=== PATIENT | female | born 1940 | race Caucasian/White ===

== ENCOUNTER → 2016-08-24 | Outpatient (CLI) | payer OTHER ==
[~2016-08-24] MED LIST: ALLO300T2 PO; ASPI81TA21 PO; ATOR-26 PO; ATV/1 PO; ATV2 PO; BMX1 PO; CEPH500C PO; CHOL100027 PO; FURO40TA3 PO; GABA-113 PO; INSDGIPEN SC; INSDGIPEN SQ; INSU1INJ2 SQ; INSU1INJ7 SC; IRBE-37 PO; ISOS30TA3 PO; LSX/40 PO; METO-478 PO; METO5TAB25 PO; NTRGSL/4 UT; NVLGI SC; NYSCR30 TOP; NYSTOIN5 TOP; OXYC-57 PO; POTA1TAB97 PO; POTA20TA16 PO; TRAM-10 PO
[2016-08-24 11:20] LABS: HEMATOCRIT 40.6 % (37-47); MEAN CELL VOLUME 93.5 fL (80-100); MEAN CORPUSCULAR HEMOGLOBIN 31.1 pg (25-34); MEAN CORPUSCULAR HGB CONC 33.3 g/dl (32-36); MEAN PLATELET VOLUME 11.5 fL (7.4-10.4); PLATELET COUNT 147 K/uL (130-400); RED BLOOD COUNT 4.34 M/uL (4.2-5.4); WHITE BLOOD COUNT 6.21 K/uL (4.8-10.8)
[2016-08-24 11:31] LABS: BLOOD UREA NITROGEN 32 mg/dl (7-18); BUN/CREATININE RATIO 26.7 (10-20); CARBON DIOXIDE 30 mmol/L (21-32); CHLORIDE 108 mmol/L (98-107); GLUCOSE 103 mg/dl (70-99); PHOSPHORUS 2.7 mg/dl (2.5-4.9); POTASSIUM 4.1 mmol/L (3.5-5.1); SODIUM 145 mmol/L (136-145)
== END | disposition home or self-care (01) ==
LOC: C.LAB1850 10:42
PROVIDERS: ATTEND Internal Medicine Nephrology
DX: I10 Essential (primary) hypertension (principal); N18.3 Chronic kidney disease, stage 3 (moderate); R60.9 Edema, unspecified; E55.9 Vitamin D deficiency, unspecified

== ENCOUNTER → 2017-02-23 | Outpatient (CLI) | payer OTHER ==
[~2017-02-23] MED LIST changes: -CEPH500C PO; -METO-478 PO; +METO1TAB31 PO; -POTA20TA16 PO
[2017-02-23 12:07] LABS: HEMATOCRIT 43.4 % (37-47); MEAN CELL VOLUME 92.3 fL (80-100); MEAN CORPUSCULAR HEMOGLOBIN 30.9 pg (25-34); MEAN CORPUSCULAR HGB CONC 33.4 g/dl (32-36); MEAN PLATELET VOLUME 11.8 fL (7.4-10.4); PLATELET COUNT 157 K/uL (130-400); WHITE BLOOD COUNT 5.51 K/uL (4.8-10.8)
[2017-02-23 12:15] LABS: BLOOD UREA NITROGEN 57 mg/dl (7-18); BUN/CREATININE RATIO 33.5 (10-20); CALCIUM 10.3 mg/dl (8.5-10.1); CARBON DIOXIDE 32 mmol/L (21-32); CHLORIDE 102 mmol/L (98-107); GLUCOSE 171 mg/dl (70-99); PHOSPHORUS 2.3 mg/dl (2.5-4.9); POTASSIUM 3.1 mmol/L (3.5-5.1); SODIUM 142 mmol/L (136-145)
[2017-02-23 13:38] LABS: URINE APPEARANCE CLEAR (CLEAR); URINE BILIRUBIN NEG (NEG); URINE COLOR YELLOW; URINE NITRITE NEG (NEG); URINE PH 6.5 (4.5-7.5); URINE SPECIFIC GRAVITY 1.012 (1.000-1.030); UROBILINOGEN NEG (NEG)
[2017-02-23 13:39] LABS: MANUAL MICROSCOPIC REQUIRED? NO; REVIEW REQ? NO
[2017-02-23 13:52] LABS: URINE TOTAL PROTEIN < 5.0 mg/dl (0-11.9)
== END | disposition home or self-care (01) ==
LOC: C.LAB1850 10:19
PROVIDERS: ATTEND Internal Medicine Nephrology
DX: N18.3 Chronic kidney disease, stage 3 (moderate) (principal); E55.9 Vitamin D deficiency, unspecified; R60.9 Edema, unspecified; I12.9 Hypertensive chronic kidney disease with stage 1 through stage 4 chronic kidney disease, or unspecified chronic kidney disease

== ENCOUNTER → 2017-03-16 | Outpatient (CLI) | payer OTHER ==
[2017-03-16 12:35] LABS: BLOOD UREA NITROGEN 69 mg/dl (7-18); BUN/CREATININE RATIO 38.6 (10-20); CALCIUM 10.8 mg/dl (8.5-10.1); CARBON DIOXIDE 33 mmol/L (21-32); CHLORIDE 100 mmol/L (98-107); GLUCOSE 178 mg/dl (70-99); POTASSIUM 2.9 mmol/L (3.5-5.1); SODIUM 141 mmol/L (136-145)
[2017-03-16 12:38] LABS: PHOSPHORUS 3.9 mg/dl (2.5-4.9)
== END | disposition home or self-care (01) ==
LOC: C.LAB1850 10:12
PROVIDERS: ATTEND Internal Medicine Nephrology
DX: I12.9 Hypertensive chronic kidney disease with stage 1 through stage 4 chronic kidney disease, or unspecified chronic kidney disease (principal); N18.3 Chronic kidney disease, stage 3 (moderate); E55.9 Vitamin D deficiency, unspecified; E87.6 Hypokalemia; R60.9 Edema, unspecified

== ENCOUNTER → 2017-04-05 | Outpatient (CLI) | payer OTHER ==
[2017-04-05 14:55] LABS: ALT/SGPT 37 U/L (12-78); AST/SGOT 28 U/L (15-37); BLOOD UREA NITROGEN 77 mg/dl (7-18); BUN/CREATININE RATIO 40.3 (10-20); CALCIUM 10.6 mg/dl (8.5-10.1); CARBON DIOXIDE 33 mmol/L (21-32); CHLORIDE 101 mmol/L (98-107); GLUCOSE 169 mg/dl (70-99); MAGNESIUM 2.2 mg/dl (1.8-2.4); POTASSIUM 5.4 mmol/L (3.5-5.1); SODIUM 139 mmol/L (136-145)
[2017-04-05 14:58] LABS: ALB/GLOB RATIO 0.8 (0.9-2); ALKALINE PHOSPHATASE 73 U/L (45-117)
== END | disposition home or self-care (01) ==
LOC: C.LAB1850 13:07
PROVIDERS: ATTEND Internal Medicine Nephrology
DX: I12.9 Hypertensive chronic kidney disease with stage 1 through stage 4 chronic kidney disease, or unspecified chronic kidney disease (principal); N18.3 Chronic kidney disease, stage 3 (moderate); R60.9 Edema, unspecified; E55.9 Vitamin D deficiency, unspecified; E87.6 Hypokalemia

== ENCOUNTER 2017-04-07 18:37 | Inpatient (IN) | payer OTHER ==
[~2017-04-07] VITALS: Ht 157.5 cm; Wt 106.9 kg
[~2017-04-07 18:37] MED LIST changes: -ATV2 PO; -BMX1 PO; -INSDGIPEN SC; -INSDGIPEN SQ; -INSU1INJ2 SQ; -ISOS30TA3 PO; -NYSCR30 TOP; -OXYC-57 PO
[2017-04-07] MEDS ORDERED: SODIUM CHLORIDE 0.9% 1000ML 500 ML IV STA (20:39)
--- NOTE | 2017-04-07 20:45 | EMERGENCY ROOM VISIT NOTE ---
History Report prepared by Pema: Nadege Cage Under the Supervision of: Dr. William Coburn M.D. First contact with patient: 20:31 Chief Complaint: FALL Stated Complaint: FALL - LEGS GAVE OUT History of Present Illness The patient is a 76 year old female who presents to the Emergency Room with complaints of a fall that occurred around 1400 today. She reports when she first woke up this morning, both of her legs felt weak and she had a hard time getting out of bed. She was able to get to routine checkup with her PCP, Dr. Dangelo. She reports she discussed her weakness with Dr. Dangelo. After the appointment, she went to get gas when her bilateral legs "gave out" and she fell to the ground. She was unable to get herself up and had to wait for EMS to come help her. She refused to come to the ED at that time and states she was able to get home, where her family encouraged her to come to the ED. She denies hitting her head or any loss of consciousness She notes she was recently placed on a new medication by Dr. Fountain, her Psychiatric Attendant. The patient denies any recent fevers, cough or congestion or urinary symptoms. She admits to a history of diabetes mellitus and neuropathy but denies any new pain or numbness in her legs. Source of History: patient Onset: 1400 today Position: other (global) Quality: other (fall) Timing: resolved Associated Symptoms: No fevers, No cough (cough or congestion), No urinary symptoms, No numbness (bilateral legs) Review of Systems See HPI for pertinent positives & negatives. A total of 10 systems reviewed and were otherwise negative. Past Medical & Surgical Medical Problems: (1) Benign hypertension (2) Chronic kidney disease stage 3 (3) Coronary artery disease (4) Diabetes mellitus type 2 (5) Dyslipidemia (6) Glaucoma (7) Gout (8) Morbid obesity (9) Neuropathy Social History Smoking Status: Never Smoker Drug Use: none Marital Status: Housing Status: lives with family Occupation Status: retired Current/Historical Medications Scheduled Allopurinol (Zyloprim), 300 MG PO QAM Aspirin Enteric Coated (Ecotrin Or Generic), 81 MG PO QAM Atorvastatin (Lipitor), 80 MG PO QAM Furosemide (Lasix), 40 MG PO HS Furosemide (Lasix), 80 MG PO QAM Gabapentin (Neurontin), 600 MG PO QAM Gabapentin (Neurontin), 900 MG PO HS Insulin Aspart (Novolog Penfill), 14 UNITS SQ QA Insulin Aspart (Novolog Penfill), 16 UNITS SQ LUNCH Insulin Aspart (Novolog Penfill), 18 UNITS SQ SUPPER Insulin Glargine (Lantus Solostar), 50 UNITS SQ QAM Insulin Glargine (Lantus Solostar), 60 SC QPM Lorazepam (Lorazepam), 2 MG PO HS Metoprolol Succinate (Toprol Xl), 12.5 MG PO QAM Nitroglycerin (Nitrostat), 0.4 MG UT PRN Potassium Chloride (K-Tab), 3 TABS PO BID Scheduled PRN Metolazone (Zaroxolyn), 5 MG PO DAILY PRN for SWELLING Nystatin (Nystatin Cream), 1 APPLN TOP BID PRN for RASH Oxycodone/Acetaminophen 5MG/325MG (Percocet 5MG/325MG), 1 TABLET PO Q6H PRN for Pain Allergies Coded Allergies: Sulfamethoxazole w/Trimethoprim (Verified Allergy, Unknown, RASH, 04/07/17) Physical Exam Vital Signs Date Time Temp Pulse Resp B/P (MAP) Pulse Ox O2 Delivery O2 Flow Rate FiO2 04/07/17 23:51 52 18 142/53 99 Room Air 04/07/17 22:44 73 04/07/17 22:00 50 18 98 Room Air 04/07/17 21:57 119/63 98 Room Air 04/07/17 21:45 58 16 04/07/17 20:46 45 04/07/17 20:44 98 Room Air 04/07/17 20:40 50 16 138/45 98 Room Air 04/07/17 18:54 36.8 59 20 131/48 96 Room Air Physical Exam GENERAL: Patient is in no acute distress. HEENT: No acute trauma, normocephalic atraumatic, mucous membranes moist, no nasal congestion, no scleral icterus. NECK: No stridor, no adenopathy, no meningismus, trachea is midline. LUNGS: Clear to auscultation bilaterally, no wheeze, no rhonchi, breath sounds equal. HEART: Without murmurs gallops or rubs, bradycardic with a regular rhythm. ABDOMEN: Soft, nontender, bowel sounds positive, no hernias, no peritonitis. EXTREMITIES: No cyanosis or edema, full range of motion of all the joints without pain or difficulty, no signs for acute trauma. NEUROLOGIC: Oriented x 3, no acute motor or sensory deficits, no focal weakness. SKIN: No rash, no jaundice, no diaphoresis. Medical Decision & Procedures ER Provider Diagnostic Interpretation: Radiology results as stated below per my review and radiologist interpretation: CHEST ONE VIEW PORTABLE CLINICAL HISTORY: 76 years-old Female presenting with EVALUATE ALTERED MENTAL STATUS/WEAKNESS. TECHNIQUE: Portable upright AP view of the chest was obtained. COMPARISON: 12/12/2011 FINDINGS: Atherosclerosis of the aortic arch. Cardiac silhouette within normal limits. Lungs and pleural spaces clear. Osseous structures normal. Upper abdomen normal. IMPRESSION: 1. No acute cardiopulmonary disease. Electronically signed by: Phan Muhammad M.D. 04/07/2017 9:17 PM HEAD WITHOUT CONTRAST (CT) CLINICAL HISTORY: 76 years-old Female presenting with EVALUATE ALTERED MENTAL STATUS/WEAKNESS. TECHNIQUE: Multidetector CT imaging of the head was performed technique 1 IV contrast: None. A dose lowering technique was used consistent with the principles of ALARA (as low as reasonably achievable). COMPARISON: 09/28/2012. CT DOSE (mGy.cm): The estimated cumulative dose is 638.56 mGycm. FINDINGS: Field Application Engineer topogram: Unremarkable. Ventricles and sulci normal in size. Brain parenchyma normal in appearance with preserved aguilar-white differentiation. No mass effect or midline shift. No hemorrhage or acute territorial infarct. No extra-axial fluid collection. Paranasal sinuses and mastoid air cells clear. Calvarium intact. IMPRESSION: 1. No acute intracranial pathology. Electronically signed by: Phan Muhammad M.D. 04/07/2017 9:46 PM Laboratory Results Test 04/07/17 20:21 04/07/17 22:02 Total Bilirubin 0.5 mg/dl (0.2-1) Alanine Aminotransferase (ALT/SGPT) 35 U/L (12-78) Alkaline Phosphatase 67 U/L (45-117) Total Protein 7.8 gm/dl (6.4-8.2) Albumin 3.5 gm/dl (3.4-5.0) Globulin 4.3 gm/dl (2.5-4.0) Albumin/Globulin Ratio 0.8 (0.9-2) Thyroid Stimulating Hormone (TSH) 2.230 uIu/ml (0.300-4.500) Prothrombin Time 10.6 SECONDS (9.0-12.0) Prothromb Time International Ratio 1.0 (0.9-1.1) Activated Partial Thromboplast Time 26.8 SECONDS (21.0-31.0) Partial Thromboplastin Ratio 1.0 Magnesium Level 2.5 mg/dl (1.8-2.4) Aspartate Amino Transf (AST/SGOT) 34 U/L (15-37) Chemistry Specimen Hemolysis Laboratory results reviewed by me. Medications Administered Medications (Trade) Dose Ordered Sig/Claire Route Start Time Stop Time Status Last Admin Dose Admin Sodium Chloride 500 ml @ 999 mls/hr Q31M STAT IV 04/07/17 20:39 04/07/17 21:09 DC 04/07/17 20:39 999 MLS/HR Sodium Chloride 500 ml @ 999 mls/hr Q31M STAT IV 04/07/17 21:52 04/07/17 22:22 DC 04/07/17 21:52 999 MLS/HR Albuterol Sulfate (Ventolin 0.083% 2.5MG/3ML Neb) 2.5 mg NOW STAT INH 04/07/17 22:35 04/07/17 22:39 DC 04/07/17 22:53 2.5 MG Calcium Gluconate 1000 mg/Sodium Chloride 60 ml @ 240 mls/hr 2345 ONCE IV 04/07/17 23:45 04/07/17 23:59 DC 04/07/17 23:42 240 MLS/HR Dextrose (Dextrose 50% 50ML Syringe) 50 ml 2330 ONCE IV 04/07/17 23:30 04/07/17 23:31 DC 04/07/17 23:42 50 ML Insulin Human Regular 10 units/ Syringe 10 ml @ 10 mls/min 2335 ONCE IV 04/07/17 23:35 04/07/17 23:36 DC 04/07/17 23:45 10 MLS/MIN ECG Indication: weakness Rate (beats per minute): 48 Rhythm: junctional Findings: other (Poor R-wave progression) Comparison ECG Date: Compared to EKG from 05/03/12, junctional rhythm is now present ED Course 2032: The patient was evaluated in room B3. A complete history and physical exam was performed. 2038: NSS 500 ml @ 999 mls/hr IV, NSS 500 ml @ 999 mls/hr IV. 2234: Albuterol Sulfate 2.5 mg INH. 2244: I reevaluated the patient. She is resting comfortably. I discussed my recommendation she remain in the hospital for further evaluation and management and she verbalized complete understanding and agreement. 2249: I discussed the patients case with Juwan Worrell. The patient will be further evaluated. Medical Decision The differential diagnoses considered include stroke or intracranial bleeding, debilitation, anemia, electrolyte imbalance, infection, UTI, Guillain [place] Syndrome, PA, thyroid disorder and dysrhythmia. There is no leukocytosis or concerning anemia. Renal panel testing shows hyperkalemia with a potassium of 6. There is some acute renal failure with a high creatinine at 2.8. No evidence for hepatitis. The patient appears to be in a euthyroid state. EKG shows a junctional rhythm with a rate of 48. No acute ischemia. Cardiac enzyme testing times one does show a slight elevation to the troponin consistent with possible cardiac injury/strain. Chest film does not show pneumonia or CHF. Brain CT shows no acute bleed or mass effect. There is no coagulopathy. Total CK slightly elevated but not high enough to diagnose rhabdomyolysis. The patient was given an albuterol neb, she received IV saline. These 2 interventions were performed because of the hyperkalemia. The patient presents with leg weakness. She is in a junctional bradycardia and somewhat hyperkalemic. There is some acute renal failure. Admission/ observation is warranted. I spoke with the patient and case management. I spoke to the on-call hospitalist. The patient's potassium will need to be followed closely. She may require further interventions for the potassium based on the next potassium value. Medication Reconcilliation Current Medication List: was personally reviewed by me Blood Pressure Screening Patient's blood pressure: Normal blood pressure Blood pressure disposition: Did not require urgent referral Consults Time Called: 2247 Consulting Physician: Juwan Worrell Returned Call: 2249 I discussed the patients case with Juwan Worrell. The patient will be further evaluated. Impression Primary Impression: Acute renal failure Additional Impressions: Weakness Hyperkalemia Bradycardia Scribe Attestation The scribe's documentation has been prepared under my direction and personally reviewed by me in its entirety. I confirm that the note above accurately reflects all work, treatment, procedures, and medical decision making performed by me. Departure Information Dispostion Being Evaluated By Hospitalist Referrals Maggie Dangelo M.D. (PCP) Patient Instructions [facility] Problem Qualifiers
[2017-04-07] MEDS ORDERED: INSDGIPEN SQ (21:06)
[2017-04-07] MEDS ORDERED: ATV2 PO (21:06)
[2017-04-07] MEDS ORDERED: NYSCR30 TOP (21:06)
[2017-04-07] MEDS ORDERED: INSDGIPEN SC (21:06)
[2017-04-07] MEDS ORDERED: GABA-113 PO (21:06)
[2017-04-07] MEDS ORDERED: OXYC-57 PO (21:06)
[2017-04-07] MEDS ORDERED: INSU1INJ2 SQ ×3 (21:06)
[2017-04-07] MEDS ORDERED: ISOS30TA3 PO (21:06)
--- NOTE | 2017-04-07 21:18 | DIAGNOSTIC IMAGING REPORT ---
CHEST ONE VIEW PORTABLE CLINICAL HISTORY: 76 years-old Female presenting with EVALUATE ALTERED MENTAL STATUS/WEAKNESS. TECHNIQUE: Portable upright AP view of the chest was obtained. COMPARISON: 12/12/2011 FINDINGS: Atherosclerosis of the aortic arch. Cardiac silhouette within normal limits. Lungs and pleural spaces clear. Osseous structures normal. Upper abdomen normal. IMPRESSION: 1. No acute cardiopulmonary disease. Electronically signed by: Phan Muhammad M.D. 04/07/2017 9:17 PM Dictated Date/Time: 04/07/2017 9:16 PM
[2017-04-07 21:22] LABS: ALB/GLOB RATIO 0.8 (0.9-2); ALKALINE PHOSPHATASE 67 U/L (45-117); ALT/SGPT 35 U/L (12-78); BLOOD UREA NITROGEN 96 mg/dl (7-18); BUN/CREATININE RATIO 34.2 (10-20); CALCIUM 10.2 mg/dl (8.5-10.1); CARBON DIOXIDE 25 mmol/L (21-32); CHLORIDE 102 mmol/L (98-107); GLUCOSE 175 mg/dl (70-99); SODIUM 133 mmol/L (136-145)
--- NOTE | 2017-04-07 21:47 | DIAGNOSTIC IMAGING REPORT ---
HEAD WITHOUT CONTRAST (CT) CLINICAL HISTORY: 76 years-old Female presenting with EVALUATE ALTERED MENTAL STATUS/WEAKNESS. TECHNIQUE: Multidetector CT imaging of the head was performed technique 1 IV contrast: None. A dose lowering technique was used consistent with the principles of ALARA (as low as reasonably achievable). COMPARISON: 09/28/2012. CT DOSE (mGy.cm): The estimated cumulative dose is 638.56 mGycm. FINDINGS: Avionics Systems Engineer topogram: Unremarkable. Ventricles and sulci normal in size. Brain parenchyma normal in appearance with preserved aguilar-white differentiation. No mass effect or midline shift. No hemorrhage or acute territorial infarct. No extra-axial fluid collection. Paranasal sinuses and mastoid air cells clear. Calvarium intact. IMPRESSION: 1. No acute intracranial pathology. Electronically signed by: Phan Muhammad M.D. 04/07/2017 9:46 PM Dictated Date/Time: 04/07/2017 9:44 PM
[2017-04-07] MEDS ORDERED: SODIUM CHLORIDE 0.9% 500ML 500 ML IV STA (21:52)
[2017-04-07 22:12] LABS: BASO % 0.1 %; BASO ABS # 0.01 K/uL (0-0.2); COMPLETE YES; EOS % 1.3 %; IG% 0.1 %; LYMPH % 24.4 %; LYMPH ABS # 1.84 K/uL (1.2-3.4); MEAN CELL VOLUME 92.8 fL (80-100); MEAN CORPUSCULAR HGB CONC 33.4 g/dl (32-36); MEAN PLATELET VOLUME 11.4 fL (7.4-10.4); MONO % 10.1 %; PLATELET COUNT 160 K/uL (130-400); RED BLOOD COUNT 4.74 M/uL (4.2-5.4); WHITE BLOOD COUNT 7.55 K/uL (4.8-10.8)
[2017-04-07 22:26] LABS: PROTHROMBIN TIME (PATIENT) 10.6 SECONDS (9.0-12.0)
[2017-04-07] MEDS ORDERED: ALBUTEROL 0.083% NEBU SOLN 3 ML VIAL INH STA (22:35)
[2017-04-07 22:37] LABS: MAGNESIUM 2.5 mg/dl (1.8-2.4)
[2017-04-07] MEDS ORDERED: DEXTROSE 50% 50 ML SYR IV ONE (23:30)
[2017-04-07] MEDS ORDERED: CALCIUM GLUCONATE 10% 10 ML VIAL IV ONE (23:32)
[2017-04-07] MEDS ORDERED: NovoLIN-R INSULIN PER UNIT CHARGE ONE (23:32)
[2017-04-07] MEDS ORDERED: INSULIN HUMAN REGULAR PER UNIT 10 UNITS in SYRINGE 9.9 ML IV ONE (23:35)
[2017-04-07] MEDS ORDERED: CALCIUM GLUCONATE 10% 1,000 MG in SODIUM CHLORIDE 0.9% 50ML 50 ML IV ONE (23:45)
[2017-04-08] MEDS ORDERED: INSULIN ASPART 100 UNITS/ML 3 ML PEN SC ONE (01:21)
[2017-04-08] MEDS ORDERED: OXYCODONE/ACETAMINOPHEN 5-325 TAB PO PRN (01:30)
[2017-04-08] MEDS ORDERED: NITROGLYCERIN 0.4 MG SL PER TAB CHARGE SL PRN (01:30)
[2017-04-08] MEDS ORDERED: GLUCOSE 40% GEL 15 GM TUBE PO PRN (01:30)
[2017-04-08] MEDS ORDERED: GLUCAGON FOR INJ 1 MG VIAL SQ PRN (01:30)
[2017-04-08] MEDS ORDERED: HYDROmorphone INJ 0.5 MG/0.5 ML SYR IV PRN (01:30)
[2017-04-08] MEDS ORDERED: SODIUM CHLORIDE 0.9% 1000ML 1,000 ML IV ONE (01:30)
[2017-04-08] MEDS ORDERED: ACETAMINOPHEN 325 MG TAB PO PRN (01:30)
[2017-04-08] MEDS ORDERED: GLUCOSE 10 TABS/TUBE PO PRN (01:30)
[2017-04-08] MEDS ORDERED: DEXTROSE 50% 50 ML SYR IV PRN (01:30)
[2017-04-08] MEDS ORDERED: ONDANSETRON INJ 2 MG/ML 2 ML VIAL IV PRN (01:30)
[2017-04-08 01:39] VITALS: BP 151/70; PULSE 48; TEMP 36.5; O2SAT 98; Ht 157.5 cm; Wt 106.9 kg
[2017-04-08 03:40] LABS: BASO % 0.3 %; BASO ABS # 0.02 K/uL (0-0.2); COMPLETE YES; EOS % 1.8 %; HEMATOCRIT 39.3 % (37-47); IG% 0.3 %; LYMPH % 22.6 %; LYMPH ABS # 1.74 K/uL (1.2-3.4); MEAN CELL VOLUME 92.7 fL (80-100); MEAN CORPUSCULAR HEMOGLOBIN 30.7 pg (25-34); MEAN CORPUSCULAR HGB CONC 33.1 g/dl (32-36); MONO % 10.6 %; NEUT % 64.4 %; PLATELET COUNT 154 K/uL (130-400); RED BLOOD COUNT 4.24 M/uL (4.2-5.4)
[2017-04-08 03:57] LABS: BUN/CREATININE RATIO 36.8 (10-20); CALCIUM 9.9 mg/dl (8.5-10.1); CREATININE 2.4 mg/dl (0.60-1.20); POTASSIUM 5.5 mmol/L (3.5-5.1)
[2017-04-08 04:30] VITALS: BP_SYST 118; BP_SYST 150; BP_SYST 153; BP_DIAS 76; BP_DIAS 77; BP_DIAS 80; PULSE 36; PULSE 43; PULSE 53; TEMP 36.9; O2SAT 98
[2017-04-08] MEDS ORDERED: INSULIN HUMAN REGULAR PER UNIT 10 UNITS in SYRINGE 9.9 ML IV ONE (05:15)
[2017-04-08] MEDS ORDERED: DEXTROSE 50% 50 ML SYR IV ONE (05:15)
[2017-04-08] MEDS: HEPARIN SOD 5000 UNIT/0.5 ML CARP SQ SCH ×3 (05:26→21:32)
[2017-04-08] MEDS ORDERED: SODIUM POLYST. SULF SUSP 15G/60ML PO STA (07:41)
[2017-04-08 08:02] VITALS: BP 135/64; PULSE 46; TEMP 36.4; O2SAT 97
[2017-04-08] MEDS: INSULIN ASPART 100 UNITS/ML 3 ML PEN SC SCH ×4 (08:05→21:32)
[2017-04-08] MEDS: ASPIRIN 81 MG ECTAB PO SCH (08:05)
[2017-04-08] MEDS: GABAPENTIN 100 MG CAP PO SCH ×2 (08:06→19:54)
[2017-04-08] MEDS: ALLOPURINOL 300 MG TAB PO SCH (08:06)
[2017-04-08] MEDS: INSULIN GLARGINE SOLOSTAR 100 UNITS/ML 3 ML PEN SC SCH ×2 (08:14→21:31)
[2017-04-08] MEDS ORDERED: CALCIUM GLUCONATE 10% 1,000 MG in SODIUM CHLORIDE 0.9% 50ML 50 ML IV ONE (08:30)
--- NOTE | 2017-04-08 08:30 | HISTORY & PHYSICAL EXAMINATION ---
DATE OF ADMISSION: 04/08/2017 PRIMARY CARE DOCTOR: Dr. Dangelo. CHIEF COMPLAINT: Fall. HISTORY OF PRESENT ILLNESS: History obtained from patient and records. Medical history significant for CAD post-stenting, chronic diastolic heart failure, EF of 55-59% (2D echo February 2017 EF 70%, hypertension, DM2 insulin requiring, hyperlipidemia, gout, chronic renal insufficiency (baseline creatinine 1.7 to 2.1 as per records) Recent confinement last April 2012 for acute renal failure, volume overload, bradycardia. Recent [facility] Card[facility] outpatient visit last month. Patient noted to be fluid overloaded. Diuretics deferred to nephrology as per note. Felodipine stopped for possible contribution to leg swelling. Imdur dose increased. Patient stopped taking Imdur as she became sicker after 2 days of treatment after notifying her field sales consultant. 24-hour Holter monitor contemplated to assess for significant bradyarrhythmias given complaints of chronic fatigue. Planned evaluation for obstructive sleep apnea as well. Conclusions from Holter monitor done March 14 as follows : dominant rhythm sinus rhythm, frequent PVCs noted, bigeminy. No symptoms during episode. Patient seen by [facility] about 3 weeks ago. leg swelling improving on diuretic as per note. Outpatient potassium noted to be low. Kidney function stable at that time, Furosemide decreased to 40 mg twice daily, spironolactone started. Patient encouraged to eat bananas as per patient. KCl supplements prescribed. Yesterday the patient felt weak when she got out of bed. No chest pain, no shortness of breath, no headache, some dizziness. Good appetite. Weight loss, decreased leg swelling with home diuretic regimen. Patient directed by PCP to the Emergency Room. MEDICAL HISTORY: As above. 2D echo done February 2017 showed concentric LVH, basal septal thickened, sigmoid septum moderate LA enlargement, mild MR. Mild aortic valve regurgitation. Severe mitral annular calcification. Normal right ventricular size. SURGICAL HISTORY: section, orthopedic procedures, sphincterotomy. HOME MEDICATIONS: Include Zyloprim, aspirin, Lipitor, Lasix, Neurontin, NovoLog, Lantus, lorazepam, Toprol, Zaroxolyn, Nystatin, Nitrostat, Percocet, K-Tab. ALLERGIES: BACTRIM. FAMILY HISTORY: Heart disease, stroke, diabetes. PERSONAL AND SOCIAL HISTORY: Nonsmoker, no chronic intake of alcoholic beverages. Lives alone. Daughters live close by. REVIEW OF SYSTEMS: As per HPI, all other ROS negative. PHYSICAL EXAMINATION: VITAL SIGNS: Blood pressure was noted to be 131/48, pulse rate of 45, RR 16, T 37 O2 sats 98 room air. GENERAL: Pleasant, no respiratory distress, obese. Looks younger for stated age. SKIN: Normal color. HEAD, EYES, EARS, NOSE, AND THROAT: [place] palpebral conjunctivae, dry buccal mucosa NECK: Short neck. LUNGS: Decreased effort. HEART: Bradycardic. ABDOMEN: Soft. NT EXTREMITIES: Some LE edema. No tenderness. NEUROLOGIC: No gross focality. LABORATORY DATA: Hemoglobin was noted to be 14.7, hematocrit 44, platelets 160, sodium 133, potassium 6, chloride 102, CO2 25, BUN 20, creatinine 2.8, glucose 175. Troponin noted to be 0.04. EKG as per my interpretation junctional rhythm. Chest x-ray showed no acute disease. CT of the head no acute intracranial pathology. ASSESSMENT AND PLAN: 1. Fall, possible orthostasis Likely secondary to ARF on CRI, overdiuresis. Question of symptomatic bradycardia. 2. hyperkalemia secondary to decreased kidney function, potassium supplements, spironolactone. Daily banana intake. 3. Hypertension, currently normotensive 4. Chronic diastolic heart failure, patient on the dry side. 5. Coronary artery disease status post stenting. 6. DM2, insulin requiring. Well controlled as of recent outpatient hemoglobin A1c of 6.7 last November 2016. PLAN: PCU Check orthostatic vitals IVF, hold home diuretics, potassium supplements for now Calcium gluconate for hyperkalemia given junctional rhythm on EKG on admission. IV insulin to effect cellular redistribution of potassium. Follow serum potassium Nephrology consult, ARF on CRI, hyperkalemia. (Patient known to Dr. Fountain.) Cardio consult RE worsening bradycardic episodes. Patient known to [facility]. Basal insulin, ISS, BG goal 140-180; patient due for hemoglobin A1c recheck. DVT prophylaxis. Heparin subcutaneous DNR. MTDD
[2017-04-08 08:57] LABS: BUN/CREATININE RATIO 40.6 (10-20); CALCIUM 10.2 mg/dl (8.5-10.1); CREATININE 2.2 mg/dl (0.60-1.20); POTASSIUM 5.1 mmol/L (3.5-5.1)
[2017-04-08] MEDS ORDERED: METOPROLOL SUCC 25MG EXT REL TAB PO SCH (09:00)
--- NOTE | 2017-04-08 10:25 | Cardiology Consultation ---
Cardiology Consultation Date of Consultation: Apr 08, 2017 History of Present Illness Anjali Gonzalez is a 76 year old female seen in cardiology consultation per the request of Dr Santos for the evaluation of bradycardia. The patient attended a routine visit with Dr. Dangelo yesterday. When she got up for the appointment she noted that her legs felt rubbery and weak. She successfully made through the appointment however. Per review of the progress note it was a routine visit and she only complained of generalized stiffness consistent with arthritis pains. Her heart rate was documented to be 60 bpm at the time of the appointment per vital signs. The patient went to a gas station for gas on her way home and she had a fall after getting out of her car and needed help getting up. She then went home, and after her daughter checked up on her , the patient came to the emergency room for further evaluation however this is many hours after her call. EKG performed last evening at 2039 hrs. revealed junctional rhythm at 48 bpm. her potassium was elevated on arrival at 6 mmol per liter. She received calcium gluconate, dextrose, and IV insulin. She was admitted to the telemetry floor and remained in a junctional rhythm throughout the evening for the most part in the 45-50 beat per minute range. A repeat EKG performed this morning 04/08/2017 at 7:46 AM revealed intermittent sinus bradycardia with PACs as well as junctional escape rhythm on the same 10 second EKG strip. After this EKG was performed patient has received another dose of calcium gluconate and has received Kayexalate. Currently on telemetry sinus rhythm in the 60 beat per minute range is noted. Her most recent potassium has trended down to 5.1 The patient had last been seen as an outpatient by Mike CALDERÓN of our practice on 02/28/2017. The note describes that has been ongoing issues with right-sided heart failure for which she has been prescribed metolazone and had been referred to lymphedema therapy with physical therapy. She had been seen by her crusher screen repairer, Dr. Fountain February, and apparently per the report metolazone was discontinued due to hyperkalemia. Furosemide was increased to 80 mg twice a day and supplementary potassium dose was increased to 40 mEq 3 times per day, a total of 120 mEq daily. Past Medical/Surgical History Problem List: Medical Problems: (1) Benign hypertension (2) Chronic kidney disease stage 3 (3) Coronary artery disease (4) Diabetes mellitus type 2 (5) Dyslipidemia (6) Glaucoma (7) Gout (8) Morbid obesity (9) Neuropathy History Past Medical History: ASCVD NSTEMI in May 2002. Diffuse mild atherosclerotic coronary artery diease by May 22, 2002 diagnostic cardiac catheterization by Dr. Tc Mike at [facility]. Single discrete high grade obstruction of the mid RCA status post PCI at [facility] with a 4.0 x 38 mm Penta bare metal stent. Long 60% mid LAD stenosis extending into the origin of a large diagonal branch and narrowing it by 50%. Preserved LV systolic function Hypertension Dyslipidemia with optimal LDL goal of < 70 mg/dL Type II diabetes mellitus with neuropathy Chronic kidney disease followed by Dr. Fountain Obesity History of gout Chart history of anemia Past Surgical History: Three prior C-sections Spincterotomy by Dr. 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 Prakash. Elective right knee surgery in November 2011. Post knee surgery she was hospitalized at [facility] then [facility] secondary to symptomatic bradyarrhythmias in association with acute kidney injury and hyperkalemia that required dopamine with arrhythmias primarily responding to treatment of the hyperkalemia. There was concern for PE though suspicion is low at [facility] secondary to negative peripheral duplexes, no evidence of right heart strain on echo, and negative troponin. She was also treated with broad spectrum antibiotics to cover for possible sepsis. Family History: Mother with an RI at 68. Father with a CVA at 69. One brother from complications of diabetes. She has three sisters who are alive and well. Social History: Nonsmoker. No alcohol. No illegal drugs. . Three daughters. Review Of Systems See above for pertinent positives & negatives. A total of 10 systems reviewed and were otherwise negative. Allergies Coded Allergies: Sulfamethoxazole w/Trimethoprim (Verified Allergy, Unknown, RASH, 04/07/17) Medications Reported Home Medications Medications Dose Route/Sig Max Daily Dose Days Date Category Dose Instructions Novolog Penfill (Insulin Aspart) 100 Unit/Ml Inj 18 Units SQ SUPPER 04/07/17 Reported Nystatin Cream (Nystatin) 90 Appln/30 Gm Cr 1 Appln TOP BID PRN 04/07/17 Reported Lorazepam 2 Mg Tab 2 Mg PO HS 04/07/17 Reported Percocet 5MG/325MG (Oxycodone/Acetaminophen) Tab 1 Tablet PO Q6H PRN 04/07/17 Reported PAIN Neurontin (Gabapentin) 300 Mg Cap 900 Mg PO HS 04/07/17 Reported Lantus Solostar (Insulin Glargine) 100 Unit/Ml Inj 60 SC QPM 04/07/17 Reported Lantus Solostar (Insulin Glargine) 100 Unit/Ml Inj 50 Units SQ QAM 04/07/17 Reported Novolog Penfill (Insulin Aspart) 100 Unit/Ml Inj 16 Units SQ LUNCH 04/07/17 Reported Novolog Penfill (Insulin Aspart) 100 Unit/Ml Inj 14 Units SQ QA 04/07/17 Reported Lasix (Furosemide) 40 Mg Tab 80 Mg PO QAM 08/04/15 Reported Zaroxolyn (Metolazone) 5 Mg Tab 5 Mg PO DAILY PRN 08/04/15 Reported K-Tab (Potassium Chloride) 20 Meq Tab 3 Tabs PO BID 08/04/15 Reported Lipitor (Atorvastatin Calcium) 80 Mg Tab 80 Mg PO QAM 08/04/15 Reported Toprol Xl (Metoprolol Succinate) 25 Mg Tab 12.5 Mg PO QAM 09/28/12 Reported Zyloprim (Allopurinol) 300 Mg Tab 300 Mg PO QAM 05/03/12 Reported Ecotrin Or Generic (Aspirin) 81 Mg Tab 81 Mg PO QAM 05/03/12 Reported Lasix (Furosemide) 40 Mg Tab 40 Mg PO HS 05/03/12 Reported Neurontin (Gabapentin) 300 Mg Cap 600 Mg PO QAM 05/03/12 Reported Nitrostat (Nitroglycerin) 0.4 Mg Tab 0.4 Mg UT PRN 05/03/12 Reported Physical Exam Vital Signs (Last 8hrs): Last 8 Hrs Date Time Temp Pulse Resp B/P (MAP) Pulse Ox O2 Delivery O2 Flow Rate FiO2 04/08/17 08:02 36.4 46 18 135/64 (87) 97 04/08/17 04:30 36.9 36 18 118/76 (90) 98 43 150/77 (101) 53 153/80 (104) General Appearance: Alert and Oriented x3. NAD. Head: Normocephalic Atraumatic. Eyes: PERRLA, EOMI, conjunctiva and sclera clear Neck: Supple. No carotid bruits noted. No JVD. No HJD. Respiratory: Breath sounds clear to auscultation bilaterally. No w/r/r. Cardiovascular: Reg rate and rhythm. S1 and S2 noted. No murmurs, rubs, gallops. PMI non displace. Abdomen: Normal bowel sounds, soft nontender. no abdominal bruits. Extremities: trace edema Neuro: No focal deficits. Psychiatric: Normal affect. Data 04/08/17 03:15 Red Blood Count 4.24, Mean Corpuscular Volume 92.7, Mean Corpuscular Hemoglobin 30.7, Mean Corpuscular Hemoglobin Concent 33.1, Mean Platelet Volume 12.0, Neutrophils (%) (Auto) 64.4, Lymphocytes (%) (Auto) 22.6, Monocytes (%) (Auto) 10.6, Eosinophils (%) (Auto) 1.8, Basophils (%) (Auto) 0.3, Neutrophils # (Auto ) 4.96, Lymphocytes # (Auto) 1.74, Monocytes # (Auto) 0.82, Eosinophils # (Auto ) 0.14, Basophils # (Auto) 0.02 Last Resulted 04/08/17 08:18 Past 24 Hours Test 04/07/17 20:21 04/07/17 22:02 04/08/17 03:15 04/08/17 08:18 Range/Units Total Creatine Kinase 690 H 731 H 26-192 U/L Troponin I 0.046 *H 0.059 *H 0.049 *H 0-0.045 ng/ml Prothromb Time International Ratio 1.0 0.9-1.1 Prothrombin Time 10.6 9.0-12.0 SECONDS EKG:as per HPI Assessment & Plan Summary of transthoracic echocardiogram performed on 03/11/17 at [facility]: The LV wall thickness is moderately increased (concentric). The basal septum is thickened and angulated consistent with sigmoid septum. The qualitative LV ejection fraction is 5559% (normal). The right ventricular systolic function is normal as assessed by tricuspid annular plane systolic excursion (TAPSE) (normal >1.7 cm). The left atrium is moderately enlarged. The right atrial size is normal. There is severe mitral annular calcification. Mild mitral regurgitation is present. Mild aortic valve sclerosis is present. Mild aortic valve regurgitation is present. Impression: 1. Transient junctional bradycardia in the setting of hyperkalemia, improved at present 2. Hypoxia history of volume overload, right heart failure, on high-dose diuretic and high dose potassium replacement 3. Acute kidney injury on chronic kidney disease creatinine performed on had been 1.7 and the creatinine is 2.2 mg/dL today. Plan: Recommend holding metoprolol. Hospitalist service and nephrology input appreciated regarding management of hyperkalemia. She had a transthoracic echocardiogram recently in our office on 03/11/17 with results as above and therefore do not think we need to repeat this at present. I think her mild troponin elevation as well as CPK elevation is likely due to her acute kidney injury and fall, and I do not think this represents an acute coronary syndrome or decompensated congestive heart failure. Looking ahead, will need to be cautious in determining her ongoing diuretic dose and ongoing potassium supplementation dose. Patient will be reassessed as her hospital stay develops regarding timing of reinitiating metoprolol.
[2017-04-08 11:59] VITALS: BP 165/77; PULSE 58; TEMP 36.6; O2SAT 99
--- NOTE | 2017-04-08 13:43 | Nephrology Consultation ---
Nephrology Consultation Date & Providers Date of Consultation: Apr 08, 2017. Primary Care Provider: Maggie Dangelo M.D. Referring Provider: Reason for Consultation Acute renal insufficiency, hyperkalemia History of Present Illness Mrs. Anjali Gonzalez was seen and evaluated in her hospital room this morning. I discussed the case and the plan of care with Dr. Castillo this morning. Anjali has baseline CKD IV. Baseline creatinine has been 1.7 - 2.1. CKD has been attributed to diabetic nephropathy. She follows in the nephrology clinic with Dr. Fountain. Anjali was seen in the nephrology clinic on March 18. She has lymphedema requiring PT treatments in the past as well as a history of hypokalemia associated with loop diuretics. Furosemide was reduced from 80 mg BID to 40 mg BID. Potassium chloride reduced from 80 mEq BID to 40 mEq BID. She started spironolactone 100 mg daily. She states that she was tolerating the medication well at first. She had repeat blood work on April 05 that documented a creatinine of 1.9 with a serum potassium of 5.4 mmol/L. Yesterday, she presented to Dr. Dangelo's office with lower extremity weakness and recurrent falls. She reports decreased intake of fluids and mild malaise over a few days. Her weight and edema had been stable. She denied any change in urine output. No significant dietary changes were identified. Repeat laboratory studies were notable for ASPEN with a serum creatinine of 2.8 as well as hyperkalemia at 6.0 mmol/L. Anjali presented to the ED where she was found to be in a junctional bradycardia. She was placed on telemetry monitoring and started on a saline infusion. Hyperkalemia was managed with Kayexalate, calcium gluconate and insulin. This morning, Anjali was resting comfortably in bed. She denies any lightheadedness, dizziness, syncope or presyncope. She denies chest pain or palpitations. Medical records from the inpatient and outpatient EMR as well as cardiology consultation were reviewed this morning. Past Medical/Surgical History Medical: Anxiety disorder Chronic kidney disease, stage IV Coronary artery disease Diabetes mellitus Lymphedema Gout Hyperlipidemia Hypertension Hypokalemia Morbid obesity Vitamin D deficiency Surgical: None reported Allergies Coded Allergies: Sulfamethoxazole w/Trimethoprim (Verified Allergy, Unknown, RASH, 04/07/17) Inpatient Medications Current Inpatient Medications Medications (Trade) Dose Ordered Sig/Claire Route Start Time Stop Time Status Last Admin Dose Admin Heparin Sodium (Porcine) (Heparin Sq 5000 Unit/0.5ml) 5,000 unit Q8 SQ 04/08/17 06:00 05/08/17 05:59 04/08/17 05:26 5,000 UNIT Sodium Chloride 1,000 ml @ 75 mls/hr [id number] ONCE IV 04/08/17 01:30 04/08/17 14:49 04/08/17 03:43 75 MLS/HR Acetaminophen (Tylenol Tab) 650 mg Q4H PRN PO 04/08/17 01:30 05/08/17 01:29 Nitroglycerin (Nitrostat Tab) 0.4 mg UD PRN SL 04/08/17 01:30 05/08/17 01:29 Insulin Aspart (novoLOG ASPART) SLIDING SCALE If C... ACHS SC 04/08/17 07:00 05/08/17 06:59 04/08/17 11:35 1 UNITS Glucose (Glucose 40% Gel) 15-30 GRAMS 15 GRAMS... UD PRN PO 04/08/17 01:30 05/08/17 01:29 Glucose (Glucose Chew Tab) 4-8 Tablets 4 Tabl... UD PRN PO 04/08/17 01:30 05/08/17 01:29 Dextrose (Dextrose 50% 50ML Syringe) 25-50ML OF 50% DW IV FOR... UD PRN IV 04/08/17 01:30 05/08/17 01:29 Glucagon (Glucagon Inj) 1 mg UD PRN SQ 04/08/17 01:30 05/08/17 01:29 Hydromorphone HCl (Dilaudid Inj) 0.5 mg Q3H PRN IV 04/08/17 01:30 04/22/17 01:29 Allopurinol (Zyloprim Tab) 300 mg QAM PO 04/08/17 09:00 05/08/17 08:59 04/08/17 08:06 300 MG Aspirin (Ecotrin Tab) 81 mg QAM PO 04/08/17 09:00 05/08/17 08:59 04/08/17 08:05 81 MG Gabapentin (Neurontin Cap) 200 mg BID PO 04/08/17 09:00 05/08/17 08:59 04/08/17 08:06 200 MG Lorazepam (Ativan Tab) 0.5 mg HS PRN PO 04/08/17 01:30 05/08/17 01:29 Oxycodone/ Acetaminophen (Percocet 5-325mg Tab) 1 tab Q6H PRN PO 04/08/17 01:30 04/22/17 01:29 Insulin Glargine (Lantus Solostar Pen) 5 units BID SC 04/08/17 09:00 05/08/17 08:59 04/08/17 08:14 5 UNITS Social History Smoking Status: Never Smoker Drug Use: none Marital Status: Housing Status: lives alone Occupation: retired Review of Systems A complete review of systems was performed. Pertinent positives are noted above. All other systems are negative. Physical Exam Date Time Temp Pulse Resp B/P (MAP) Pulse Ox O2 Delivery O2 Flow Rate FiO2 04/08/17 11:59 36.6 58 16 165/77 (106) 99 Room Air 04/08/17 08:02 36.4 46 18 135/64 (87) 97 04/08/17 08:00 Room Air 04/08/17 04:30 36.9 36 18 118/76 (90) 98 43 150/77 (101) 53 153/80 (104) 04/08/17 01:39 36.5 48 17 151/70 98 Room Air 04/07/17 23:51 52 18 142/53 99 Room Air 04/07/17 22:44 73 04/07/17 22:00 50 18 98 Room Air 04/07/17 21:57 119/63 98 Room Air 04/07/17 21:45 58 16 04/07/17 20:46 45 04/07/17 20:44 98 Room Air 04/07/17 20:40 50 16 138/45 98 Room Air 04/07/17 18:54 36.8 59 20 131/48 96 Room Air General Appearance: no apparent distress, + obese Head: normocephalic, atraumatic Eyes: normal inspection, sclerae normal ENT: normal ENT inspection, pharynx normal Neck: supple, + pertinent finding (thick, no JVD) Respiratory/Chest: no respiratory distress, no accessory muscle use, + decreased breath sounds Cardiovascular: no edema, no gallop, + bradycardia Abdomen/GI: non tender, soft, + pertinent finding (obese) Extremities/Musculoskelatal: normal inspection, + pedal edema Neurologic/Psych: alert, normal mood/affect, oriented x 3 Skin: normal color Laboratory Results Last 24 Hours Test 04/07/17 20:21 04/07/17 22:02 04/08/17 03:15 04/08/17 03:37 Sodium Level 133 mmol/L 136 mmol/L Potassium Level mmol/L 6.0 mmol/L 5.5 mmol/L Chloride Level 102 mmol/L 105 mmol/L Carbon Dioxide Level 25 mmol/L 26 mmol/L Anion Gap 6.0 mmol/L 5.0 mmol/L Blood Urea Nitrogen 96 mg/dl 88 mg/dl Creatinine 2.80 mg/dl 2.40 mg/dl Est Creatinine Clear Calc Drug Dose 20.4 ml/min 23.4 ml/min Estimated GFR () 18.4 22.1 Estimated GFR (Non- 15.9 19.1 BUN/Creatinine Ratio 34.2 36.8 Random Glucose 175 mg/dl 161 mg/dl Calcium Level 10.2 mg/dl 9.9 mg/dl Magnesium Level mg/dl 2.5 mg/dl Total Bilirubin 0.5 mg/dl Aspartate Amino Transf (AST/SGOT) U/L 34 U/L Alanine Aminotransferase (ALT/SGPT) 35 U/L Alkaline Phosphatase 67 U/L Total Creatine Kinase U/L 690 U/L 731 U/L Troponin I 0.046 ng/ml 0.059 ng/ml Total Protein 7.8 gm/dl Albumin 3.5 gm/dl Globulin 4.3 gm/dl Albumin/Globulin Ratio 0.8 Thyroid Stimulating Hormone (TSH) 2.230 uIu/ml White Blood Count 7.55 K/uL 7.70 K/uL Red Blood Count 4.74 M/uL 4.24 M/uL Hemoglobin 14.7 g/dL 13.0 g/dL Hematocrit 44.0 % 39.3 % Mean Corpuscular Volume 92.8 fL 92.7 fL Mean Corpuscular Hemoglobin 31.0 pg 30.7 pg Mean Corpuscular Hemoglobin Concent 33.4 g/dl 33.1 g/dl Platelet Count 160 K/uL 154 K/uL Mean Platelet Volume 11.4 fL 12.0 fL Neutrophils (%) (Auto) 64.0 % 64.4 % Lymphocytes (%) (Auto) 24.4 % 22.6 % Monocytes (%) (Auto) 10.1 % 10.6 % Eosinophils (%) (Auto) 1.3 % 1.8 % Basophils (%) (Auto) 0.1 % 0.3 % Neutrophils # (Auto) 4.83 K/uL 4.96 K/uL Lymphocytes # (Auto) 1.84 K/uL 1.74 K/uL Monocytes # (Auto) 0.76 K/uL 0.82 K/uL Eosinophils # (Auto) 0.10 K/uL 0.14 K/uL Basophils # (Auto) 0.01 K/uL 0.02 K/uL RDW Standard Deviation 49.5 fL 49.4 fL RDW Coefficient of Variation 14.6 % 14.7 % Immature Granulocyte % (Auto) 0.1 % 0.3 % Immature Granulocyte # (Auto) 0.01 K/uL 0.02 K/uL Prothrombin Time 10.6 SECONDS Prothromb Time International Ratio 1.0 Activated Partial Thromboplast Time 26.8 SECONDS Partial Thromboplastin Ratio 1.0 Chemistry Specimen Hemolysis Bedside Glucose 147 mg/dl Test 04/08/17 06:37 04/08/17 08:18 Bedside Glucose 176 mg/dl Sodium Level 135 mmol/L Potassium Level 5.1 mmol/L Chloride Level 103 mmol/L Carbon Dioxide Level 26 mmol/L Anion Gap 6.0 mmol/L Blood Urea Nitrogen 89 mg/dl Creatinine 2.20 mg/dl Est Creatinine Clear Calc Drug Dose 25.5 ml/min Estimated GFR () 24.6 Estimated GFR (Non- 21.2 BUN/Creatinine Ratio 40.6 Random Glucose 207 mg/dl Calcium Level 10.2 mg/dl Troponin I 0.049 ng/ml Impression (1) Acute renal insufficiency (2) Chronic kidney disease, stage IV (severe) (3) Hyperkalemia (4) Lymphedema (5) Coronary artery disease (6) Junctional bradycardia Anjali Gonzalez is a 76-year-old female with obesity, diabetes mellitus, coronary artery disease and CKD IV. She has chronic lower extremity lymphedema requiring large doses of diuretics to maintain euvolemia. She also has a history of loop diuretic associated hypokalemia. She was admitted with hyperkalemia, ASPEN and junctional bradycardia. Baseline heart rate by review of clinic records has been 60-70 bpm. Anjali is clinically improving with medical management. Hyperkalemia was managed with 30 g Kayexalate. She also received IV calcium gluconate and insulin. She was started on a saline infusion. Diuretics have been held. Oral KCl supplement stopped. She was not taking and ELIZABETH and denied NSAID use. Dietary potassium restriction was reviewed. At this time, I would suggest stopping MIVF. I would use furosemide 40 mg IV as needed to encourage a slightly negative fluid balance. She should be maintained on a potassium restricted diet. Metabolic profile will be monitored q 12 hours. I/O's will be documented. Medications are appropriate for renal function. Given ASPEN, I will repeat UA/ microscopy. Given that creatinine is improving, will hold on renal imaging for now. Recommendations ASPEN: -- Check UA/microscopy -- Document I/O's Hyperkalemia: -- Hold spironolactone and KCl -- Monitor q 12 hours -- K restrict diet to 2000 mg daily Junctional bradycardia: -- Per cardiology Lymphedema: -- Stop NS infusion -- Maintain slightly negative fluid balance
[2017-04-08 15:48] VITALS: BP 150/69; PULSE 58; TEMP 36.4; O2SAT 98
--- NOTE | 2017-04-08 17:39 | Progress Note ---
Internal Med Progress Note Date of Service: Apr 08, 2017. Provider Documentation: naveed presented with fall, hyperkalemia, arf on ckd stage 4 and junctional bradycardia. Received iv insulin with dextrose, calcium gluconate and Kayexalate for hyperkalemia. potassium supplements, Aldactone held. Was given fluids. Hyperkalemia resolved. patient is doing fine. No complaints. Improving. f/u labs. Appreciate cardiology and nephrology help. ASSESSMENT & PLAN: [] DVT PROPHYLAXIS [] DISPOSITION [] Vital Signs: Date Time Temp Pulse Resp B/P (MAP) Pulse Ox O2 Delivery O2 Flow Rate FiO2 04/08/17 15:48 36.4 58 22 150/69 (96) 98 Room Air 04/08/17 12:00 Room Air 04/08/17 11:59 36.6 58 16 165/77 (106) 99 Room Air 04/08/17 08:02 36.4 46 18 135/64 (87) 97 04/08/17 08:00 Room Air 04/08/17 04:30 36.9 36 18 118/76 (90) 98 43 150/77 (101) 53 153/80 (104) 04/08/17 01:39 36.5 48 17 151/70 98 Room Air 04/07/17 23:51 52 18 142/53 99 Room Air 04/07/17 22:44 73 04/07/17 22:00 50 18 98 Room Air 04/07/17 21:57 119/63 98 Room Air 04/07/17 21:45 58 16 04/07/17 20:46 45 04/07/17 20:44 98 Room Air 04/07/17 20:40 50 16 138/45 98 Room Air 04/07/17 18:54 36.8 59 20 131/48 96 Room Air Lab Results: Results Past 24 Hours Test 04/07/17 20:21 04/07/17 22:02 04/08/17 03:15 04/08/17 03:37 Range/Units Sodium Level 133 136 136-145 mmol/L Potassium Level 6.0 5.5 3.5-5.1 mmol/L Chloride Level 102 105 98-107 mmol/L Carbon Dioxide Level 25 26 21-32 mmol/L Anion Gap 6.0 5.0 3-11 mmol/L Blood Urea Nitrogen 96 88 7-18 mg/dl Creatinine 2.80 2.40 0.60-1.20 mg/dl Est Creatinine Clear Calc Drug Dose 20.4 23.4 ml/min Estimated GFR () 18.4 22.1 Estimated GFR (Non- 15.9 19.1 BUN/Creatinine Ratio 34.2 36.8 10-20 Random Glucose 175 161 70-99 mg/dl Calcium Level 10.2 9.9 8.5-10.1 mg/dl Magnesium Level 2.5 1.8-2.4 mg/dl Total Bilirubin 0.5 0.2-1 mg/dl Aspartate Amino Transf (AST/SGOT) 34 15-37 U/L Alanine Aminotransferase (ALT/SGPT) 35 12-78 U/L Alkaline Phosphatase 67 45-117 U/L Total Creatine Kinase 690 731 26-192 U/L Troponin I 0.046 0.059 0-0.045 ng/ml Total Protein 7.8 6.4-8.2 gm/dl Albumin 3.5 3.4-5.0 gm/dl Globulin 4.3 2.5-4.0 gm/dl Albumin/Globulin Ratio 0.8 0.9-2 Thyroid Stimulating Hormone (TSH) 2.230 0.300-4.500 uIu/ml White Blood Count 7.55 7.70 4.8-10.8 K/uL Red Blood Count 4.74 4.24 4.2-5.4 M/uL Hemoglobin 14.7 13.0 12.0-16.0 g/dL Hematocrit 44.0 39.3 37-47 % Mean Corpuscular Volume 92.8 92.7 80-100 fL Mean Corpuscular Hemoglobin 31.0 30.7 25-34 pg Mean Corpuscular Hemoglobin Concent 33.4 33.1 32-36 g/dl Platelet Count 160 154 130-400 K/uL Mean Platelet Volume 11.4 12.0 7.4-10.4 fL Neutrophils (%) (Auto) 64.0 64.4 % Lymphocytes (%) (Auto) 24.4 22.6 % Monocytes (%) (Auto) 10.1 10.6 % Eosinophils (%) (Auto) 1.3 1.8 % Basophils (%) (Auto) 0.1 0.3 % Neutrophils # (Auto) 4.83 4.96 1.4-6.5 K/uL Lymphocytes # (Auto) 1.84 1.74 1.2-3.4 K/uL Monocytes # (Auto) 0.76 0.82 0.11-0.59 K/uL Eosinophils # (Auto) 0.10 0.14 0-0.5 K/uL Basophils # (Auto) 0.01 0.02 0-0.2 K/uL RDW Standard Deviation 49.5 49.4 36.4-46.3 fL RDW Coefficient of Variation 14.6 14.7 11.5-14.5 % Immature Granulocyte % (Auto) 0.1 0.3 % Immature Granulocyte # (Auto) 0.01 0.02 0.00-0.02 K/uL Prothrombin Time 10.6 9.0-12.0 SECONDS Prothromb Time International Ratio 1.0 0.9-1.1 Activated Partial Thromboplast Time 26.8 21.0-31.0 SECONDS Partial Thromboplastin Ratio 1.0 Chemistry Specimen Hemolysis Bedside Glucose 147 70-90 mg/dl Test 04/08/17 06:37 04/08/17 08:18 04/08/17 11:29 04/08/17 16:06 Range/Units Bedside Glucose 176 197 70-90 mg/dl Sodium Level 135 136-145 mmol/L Potassium Level 5.1 4.8 3.5-5.1 mmol/L Chloride Level 103 98-107 mmol/L Carbon Dioxide Level 26 21-32 mmol/L Anion Gap 6.0 3-11 mmol/L Blood Urea Nitrogen 89 7-18 mg/dl Creatinine 2.20 0.60-1.20 mg/dl Est Creatinine Clear Calc Drug Dose 25.5 ml/min Estimated GFR () 24.6 Estimated GFR (Non- 21.2 BUN/Creatinine Ratio 40.6 10-20 Random Glucose 207 70-99 mg/dl Calcium Level 10.2 8.5-10.1 mg/dl Troponin I 0.049 0-0.045 ng/ml Test 04/08/17 16:22 Range/Units Bedside Glucose 227 70-90 mg/dl
[2017-04-08 19:38] VITALS: BP 122/66; PULSE 60; TEMP 36.4; O2SAT 98
[2017-04-08] MEDS ORDERED: NURSING VERBAL MED ORDER ONE (20:00)
[2017-04-08] MEDS ORDERED: MICONAZOLE NITRATE POWDER 43 GM EXT PRN (20:15)
[2017-04-08 21:30] LABS: CALCIUM 9.9 mg/dl (8.5-10.1); CREATININE 2.2 mg/dl (0.60-1.20); POTASSIUM 4.7 mmol/L (3.5-5.1)
[2017-04-08] MEDS: LORAZEPAM 0.5 MG TAB PO PRN (21:34)
[2017-04-09] VITALS (9 sets, daily range): BP systolic 123–169; BP diastolic 59–79; PULSE 61–69; TEMP 36.4–36.8; O2SAT 94–98
[2017-04-09] MEDS: HEPARIN SOD 5000 UNIT/0.5 ML CARP SQ SCH ×3 (06:00→21:47)
[2017-04-09 07:00] LABS: BASO % 0.4 %; BASO ABS # 0.02 K/uL (0-0.2); COMPLETE YES; HEMATOCRIT 39.2 % (37-47); LYMPH % 24.1 %; LYMPH ABS # 1.25 K/uL (1.2-3.4); MEAN CORPUSCULAR HEMOGLOBIN 31.2 pg (25-34); MEAN CORPUSCULAR HGB CONC 33.9 g/dl (32-36); MEAN PLATELET VOLUME 11.9 fL (7.4-10.4); MONO % 7.9 %; NEUT % 63.6 %; PLATELET COUNT 128 K/uL (130-400); RED BLOOD COUNT 4.26 M/uL (4.2-5.4); WHITE BLOOD COUNT 5.19 K/uL (4.8-10.8)
[2017-04-09] MEDS: INSULIN ASPART 100 UNITS/ML 3 ML PEN SC SCH ×4 (07:00→21:46)
[2017-04-09 07:33] LABS: BUN/CREATININE RATIO 38.1 (10-20); CALCIUM 9.5 mg/dl (8.5-10.1); CREATININE 1.7 mg/dl (0.60-1.20); POTASSIUM 4.4 mmol/L (3.5-5.1)
[2017-04-09] MEDS: ALLOPURINOL 300 MG TAB PO SCH (08:50)
[2017-04-09] MEDS: GABAPENTIN 100 MG CAP PO SCH ×2 (08:50→21:44)
[2017-04-09] MEDS: ASPIRIN 81 MG ECTAB PO SCH (08:50)
[2017-04-09] MEDS: INSULIN GLARGINE SOLOSTAR 100 UNITS/ML 3 ML PEN SC SCH ×2 (08:54→21:47)
[2017-04-09] MEDS ORDERED: BUMETANIDE 1 MG TAB PO ONE (09:27)
--- NOTE | 2017-04-09 09:59 | Nephrology Progress Note ---
Nephrology Progress Note Date of Service Apr 09, 2017. Chief Complaint Follow up evaluation of acute on chronic kidney injury, hyperkalemia and peripheral edema Subjective Ms. Gonzalez was seen & examined in the ICU this morning. Her daughter was present at bedside. Ms. Gonzalez currently denies angina, palpitations or dyspnea. Her primary concern is that she has again started to retain fluid in her legs. Review of Systems Constitutional: No fever Cardiovascular: No chest pain Respiratory: No dyspnea at rest Abdomen: No pain, No nausea, No vomiting Extremities: + leg edema A complete review of systems was performed. Pertinent positives are noted above. All other systems are negative. Vital Signs Last 8 Hrs Date Time Temp Pulse Resp B/P (MAP) Pulse Ox O2 Delivery O2 Flow Rate FiO2 04/09/17 08:15 36.4 62 19 137/59 (85) 97 Room Air 04/09/17 04:46 36.4 65 22 123/63 (83) 98 Room Air 04/09/17 04:00 Room Air Last Recorded Weight Weight (Kilograms): 106.900 Physical Exam General Appearance: no apparent distress Head: normocephalic, atraumatic Eyes: PERRL Neck: no adenopathy Respiratory/Chest: lungs clear Cardiovascular: regular rate, rhythm Abdomen/GI: normal bowel sounds, non tender, soft Extremities/Musculoskelatal: + pertinent finding (trace pretibial pitting edema ) Neurologic/Psych: alert, oriented x 3 Social History Smoking Status: Never smoker Drug Use: none Marital Status: Housing Status: lives alone Occupation: retired Laboratory Results Past 24 Hours 04/09/17 06:04 Red Blood Count 4.26, Mean Corpuscular Volume 92.0, Mean Corpuscular Hemoglobin 31.2, Mean Corpuscular Hemoglobin Concent 33.9, Mean Platelet Volume 11.9, Neutrophils (%) (Auto) 63.6, Lymphocytes (%) (Auto) 24.1, Monocytes (%) (Auto) 7.9, Eosinophils (%) (Auto) 4.0, Basophils (%) (Auto) 0.4, Neutrophils # (Auto) 3.30, Lymphocytes # (Auto) 1.25, Monocytes # (Auto) 0.41, Eosinophils # (Auto) 0.21, Basophils # (Auto) 0.02 04/08/17 16:06 04/08/17 20:26 04/09/17 06:04 Test 04/08/17 11:29 04/08/17 16:22 04/08/17 20:16 04/08/17 20:26 Bedside Glucose 197 mg/dl (70-90) 227 mg/dl (70-90) 235 mg/dl (70-90) Anion Gap 6.0 mmol/L (3-11) Est Creatinine Clear Calc Drug Dose 25.5 ml/min Estimated GFR () 24.6 Estimated GFR (Non- 21.2 BUN/Creatinine Ratio 34.0 (10-20) Calcium Level 9.9 mg/dl (8.5-10.1) Test 04/09/17 06:04 04/09/17 06:58 White Blood Count 5.19 K/uL (4.8-10.8) Red Blood Count 4.26 M/uL (4.2-5.4) Hemoglobin 13.3 g/dL (12.0-16.0) Hematocrit 39.2 % (37-47) Mean Corpuscular Volume 92.0 fL (80-100) Mean Corpuscular Hemoglobin 31.2 pg (25-34) Mean Corpuscular Hemoglobin Concent 33.9 g/dl (32-36) Platelet Count 128 K/uL (130-400) Mean Platelet Volume 11.9 fL (7.4-10.4) Neutrophils (%) (Auto) 63.6 % Lymphocytes (%) (Auto) 24.1 % Monocytes (%) (Auto) 7.9 % Eosinophils (%) (Auto) 4.0 % Basophils (%) (Auto) 0.4 % Neutrophils # (Auto) 3.30 K/uL (1.4-6.5) Lymphocytes # (Auto) 1.25 K/uL (1.2-3.4) Monocytes # (Auto) 0.41 K/uL (0.11-0.59) Eosinophils # (Auto) 0.21 K/uL (0-0.5) Basophils # (Auto) 0.02 K/uL (0-0.2) RDW Standard Deviation 49.1 fL (36.4-46.3) RDW Coefficient of Variation 14.6 % (11.5-14.5) Immature Granulocyte % (Auto) 0.0 % Immature Granulocyte # (Auto) 0.00 K/uL (0.00-0.02) Anion Gap 6.0 mmol/L (3-11) Est Creatinine Clear Calc Drug Dose 32.9 ml/min Estimated GFR () 33.6 Estimated GFR (Non- 29.0 BUN/Creatinine Ratio 38.1 (10-20) Calcium Level 9.5 mg/dl (8.5-10.1) Bedside Glucose 129 mg/dl (70-90) Allergies Coded Allergies: Sulfamethoxazole w/Trimethoprim (Verified Allergy, Unknown, RASH, 04/07/17) Medications Current Inpatient Medications Medications (Trade) Dose Ordered Sig/Claire Route Start Time Stop Time Status Last Admin Dose Admin Heparin Sodium (Porcine) (Heparin Sq 5000 Unit/0.5ml) 5,000 unit Q8 SQ 04/08/17 06:00 05/08/17 05:59 04/08/17 21:32 5,000 UNIT Acetaminophen (Tylenol Tab) 650 mg Q4H PRN PO 04/08/17 01:30 05/08/17 01:29 Nitroglycerin (Nitrostat Tab) 0.4 mg UD PRN SL 04/08/17 01:30 05/08/17 01:29 Insulin Aspart (novoLOG ASPART) SLIDING SCALE If C... ACHS SC 04/08/17 07:00 05/08/17 06:59 04/08/17 21:32 3 UNITS Glucose (Glucose 40% Gel) 15-30 GRAMS 15 GRAMS... UD PRN PO 04/08/17 01:30 05/08/17 01:29 Glucose (Glucose Chew Tab) 4-8 Tablets 4 Tabl... UD PRN PO 04/08/17 01:30 05/08/17 01:29 Dextrose (Dextrose 50% 50ML Syringe) 25-50ML OF 50% DW IV FOR... UD PRN IV 04/08/17 01:30 05/08/17 01:29 Glucagon (Glucagon Inj) 1 mg UD PRN SQ 04/08/17 01:30 05/08/17 01:29 Hydromorphone HCl (Dilaudid Inj) 0.5 mg Q3H PRN IV 04/08/17 01:30 04/22/17 01:29 Allopurinol (Zyloprim Tab) 300 mg QAM PO 04/08/17 09:00 05/08/17 08:59 04/09/17 08:50 300 MG Aspirin (Ecotrin Tab) 81 mg QAM PO 04/08/17 09:00 05/08/17 08:59 04/09/17 08:50 81 MG Gabapentin (Neurontin Cap) 200 mg BID PO 04/08/17 09:00 05/08/17 08:59 04/09/17 08:50 200 MG Lorazepam (Ativan Tab) 0.5 mg HS PRN PO 04/08/17 01:30 05/08/17 01:29 04/08/17 21:34 0.5 MG Oxycodone/ Acetaminophen (Percocet 5-325mg Tab) 1 tab Q6H PRN PO 04/08/17 01:30 04/22/17 01:29 Insulin Glargine (Lantus Solostar Pen) 5 units BID SC 04/08/17 09:00 05/08/17 08:59 04/09/17 08:54 5 UNITS Miconazole Nitrate (Desenex Powder) 1 appln PRN PRN EXT 04/08/17 20:15 05/08/17 20:14 Bumetanide (Bumex Tab) 1 mg BID17 PO 04/09/17 17:00 05/09/17 16:59 Impression (1) Acute renal insufficiency (2) Chronic kidney disease, stage IV (severe) (3) Hyperkalemia (4) Lymphedema (5) Coronary artery disease (6) Junctional bradycardia Anjali Gonzalez is a 76-year-old female with obesity, diabetes mellitus, coronary artery disease and CKD IV. She has chronic lower extremity lymphedema requiring large doses of diuretics to maintain euvolemia. She also has a history of loop diuretic associated hypokalemia. She was admitted with hyperkalemia, ASPEN and junctional bradycardia. Baseline heart rate by review of clinic records has been 60-70 bpm. Anjali is clinically improving with medical management. Recommendations ASPEN: -- Resolved. Creatinine is back to baseline 1.7 - 2.1 -- Electrolyte balance is acceptable at this time. Continue to monitor PRP on daily basis HYPERKALEMIA: -- Corrected. Hold potassium supplements EDEMA: -- Limit oral NaCl intake to 1500 mg / day -- Start Bumex 1 mg po BID -- Will prescribe medium strength knee high compression hose to be worn while awake and removed at bedtime
--- NOTE | 2017-04-09 13:28 | Cardiology Follow-Up ---
Subjective General Date of Service: Apr 09, 2017. Pt evaluation today including: conversation w/ patient, conversation w/ family , physical exam, chart review, lab review, review of studies, review of inpatient medication list History of Present Illness The patient is a 76 year old female seen in follow-up. Patient feeling well from a cardiovascular standpoint. Received a dose of Bumex this morning. Edema unchanged. Denies chest pain or unusual shortness of breath. Remains in sinus rhythm on telemetry. Toprol-XL remains on hold. Allergies Coded Allergies: Sulfamethoxazole w/Trimethoprim (Verified Allergy, Unknown, RASH, 04/07/17) Social History Smoking Status: Never Smoker Hx Tobacco Use In Past Year?: No Hx Alcohol Use - Type And Amou: No Hx Substance Use - Type And Am: No Problem List Medical Problems: (1) Acute renal failure Status: Acute (2) Bradycardia Status: Acute (3) Hyperkalemia Status: Acute (4) Weakness Status: Acute Review of Systems Respiratory: No cough, No sputum, No wheezing, No shortness of breath, No dyspnea on exertion, No dyspnea at rest, No hemoptysis Cardiac: + edema, No chest pain, No orthopnea, No PND, No claudication, No palpitations Physical Exam Vital Signs Last Vital Signs Documentation Date Time Temp Pulse Resp B/P (MAP) Pulse Ox O2 Delivery O2 Flow Rate FiO2 04/09/17 12:44 98 Room Air 04/09/17 11:59 36.5 65 18 167/79 (108) Physical Exam Constitutional: General Apperance: obese Level of Distress: NAD, chronically ill Head: normocephalic ENMT: normal ENT inspection Neck: supple, trachea midline Lungs: Auscultation: breath sounds normal, no wheezing, no rales/crackles, no rhonchi Cardiovascular: Heart Auscultation: RRR, normal S1, normal S2, no murmurs Abdomen: Inspection & Palpation: soft, non-distended, no tenderness, guarding & rebound Extremities: no cyanosis, no clubbing, no ulcers, edema (1+ B/L pedal, +B/L TEDs) Neurologic: Gait & Station: pertinent finding (No focal motor deficit) Cranial Nerves: grossly intact Assessment and Plan Assessment and Plan Impression: 1. Transient junctional bradycardia in the setting of hyperkalemia -Resolved; serum potassium within normal limits -Low-dose Toprol remains on hold 2. History of volume overload and right heart failure treated with high-dose diuretic and high dose potassium replacement. -Repeat echocardiogram performed during hospitalization demonstrates normal right ventricular size and function -Lasix transition to Bumex per nephrology 3. Acute kidney injury on chronic kidney disease - resolved; creatinine tach to baseline Plan / recommendations: Hold low dose Toprol-XL. Continue diuretic therapy per direction of nephrology. Repeat basic metabolic panel in the a.m. Continue telemetry monitoring. No further cardiac testing at this time. Laboratory Results Last 24 Hours Test 04/08/17 16:06 04/08/17 16:22 04/08/17 20:16 04/08/17 20:26 Potassium Level 4.8 mmol/L 4.7 mmol/L Bedside Glucose 227 mg/dl 235 mg/dl Sodium Level 136 mmol/L Chloride Level 103 mmol/L Carbon Dioxide Level 27 mmol/L Anion Gap 6.0 mmol/L Blood Urea Nitrogen 75 mg/dl Creatinine 2.20 mg/dl Est Creatinine Clear Calc Drug Dose 25.5 ml/min Estimated GFR () 24.6 Estimated GFR (Non- 21.2 BUN/Creatinine Ratio 34.0 Random Glucose 245 mg/dl Calcium Level 9.9 mg/dl Test 04/09/17 06:04 04/09/17 06:58 04/09/17 11:14 White Blood Count 5.19 K/uL Red Blood Count 4.26 M/uL Hemoglobin 13.3 g/dL Hematocrit 39.2 % Mean Corpuscular Volume 92.0 fL Mean Corpuscular Hemoglobin 31.2 pg Mean Corpuscular Hemoglobin Concent 33.9 g/dl Platelet Count 128 K/uL Mean Platelet Volume 11.9 fL Neutrophils (%) (Auto) 63.6 % Lymphocytes (%) (Auto) 24.1 % Monocytes (%) (Auto) 7.9 % Eosinophils (%) (Auto) 4.0 % Basophils (%) (Auto) 0.4 % Neutrophils # (Auto) 3.30 K/uL Lymphocytes # (Auto) 1.25 K/uL Monocytes # (Auto) 0.41 K/uL Eosinophils # (Auto) 0.21 K/uL Basophils # (Auto) 0.02 K/uL RDW Standard Deviation 49.1 fL RDW Coefficient of Variation 14.6 % Immature Granulocyte % (Auto) 0.0 % Immature Granulocyte # (Auto) 0.00 K/uL Sodium Level 139 mmol/L Potassium Level 4.4 mmol/L Chloride Level 107 mmol/L Carbon Dioxide Level 26 mmol/L Anion Gap 6.0 mmol/L Blood Urea Nitrogen 65 mg/dl Creatinine 1.70 mg/dl Est Creatinine Clear Calc Drug Dose 32.9 ml/min Estimated GFR () 33.6 Estimated GFR (Non- 29.0 BUN/Creatinine Ratio 38.1 Random Glucose 136 mg/dl Calcium Level 9.5 mg/dl Bedside Glucose 129 mg/dl 185 mg/dl
[2017-04-09] MEDS: BUMETANIDE 1 MG TAB PO SCH (17:19)
--- NOTE | 2017-04-09 18:15 | Progress Note ---
Internal Med Progress Note Date of Service: Apr 09, 2017. Provider Documentation: sitting on the chair comfortably afebrile denies chest pain or sob no nausea likes to go home. Exam: General-alert and awake. Not in distress ENT-normal hearing Neck-no neck masses Lungs-cta b/l no wheezing or crackles Heart-s1 and s2 heard regular rhythm no murmurs Abdomen-soft bowel sounds present non tender no distension Extremities-b/l lower extremity edema present no erythema Neuro-alert and awake moves extremities ASSESSMENT & PLAN: 1. Fall, Likely secondary to ARF on CRI, overdiuresis. Question of symptomatic bradycardia. pt/ot currently stable. 2. hyperkalemia secondary t arf and potassium supplements received insulin, dextrose, calcium gluconate and Kayexalate improved. Junctional rhythm with bradycardia mostly from hyperkalemia' holding toprol xl appreciate cardiology inputs ARF on CKD stage 3 baseline cr 1.7 - 2.1 presented with cr 2.8 Lasix held initially cr 1.7 at baseline today started on Bumex by nephrology will f/u labs Chronic Lower extremity lymphedema from chronic right heart failure? with preserved EF repeat echo no failure was requiring high doses of diuretics to keep euvolemic and loop diuretics were causing hypokalemia so wa taking potassium supplemenst as per nephrology currently initiated on Bumex. Hypertension, Toprol xl held on Bumex will monitor. Coronary artery disease status post stenting. On aspirin,B padma on hold. DM2, insulin requiring. Well controlled as of recent outpatient hemoglobin A1c of 6.7 last November 2016 On Lantus and ISS DVT PROPHYLAXIS hep sub q DISPOSITION monitor in tele to be determined Vital Signs: Date Time Temp Pulse Resp B/P (MAP) Pulse Ox O2 Delivery O2 Flow Rate FiO2 04/09/17 16:02 36.5 67 18 169/77 (107) 98 Room Air 04/09/17 16:01 98 Room Air 04/09/17 12:44 98 Room Air 04/09/17 11:59 36.5 65 18 167/79 (108) 97 Room Air 04/09/17 08:15 36.4 62 19 137/59 (85) 97 Room Air 04/09/17 08:01 98 Room Air 04/09/17 04:46 36.4 65 22 123/63 (83) 98 Room Air 04/09/17 04:00 Room Air 04/09/17 00:07 36.8 61 20 129/65 (86) 94 Room Air 04/09/17 00:00 Room Air 04/08/17 20:00 Room Air 04/08/17 19:38 36.4 60 22 122/66 (84) 98 Room Air Lab Results: Results Past 24 Hours Test 04/08/17 20:16 04/08/17 20:26 04/09/17 06:04 04/09/17 06:58 Range/Units Bedside Glucose 235 129 70-90 mg/dl Sodium Level 136 139 136-145 mmol/L Potassium Level 4.7 4.4 3.5-5.1 mmol/L Chloride Level 103 107 98-107 mmol/L Carbon Dioxide Level 27 26 21-32 mmol/L Anion Gap 6.0 6.0 3-11 mmol/L Blood Urea Nitrogen 75 65 7-18 mg/dl Creatinine 2.20 1.70 0.60-1.20 mg/dl Est Creatinine Clear Calc Drug Dose 25.5 32.9 ml/min Estimated GFR () 24.6 33.6 Estimated GFR (Non- 21.2 29.0 BUN/Creatinine Ratio 34.0 38.1 10-20 Random Glucose 245 136 70-99 mg/dl Calcium Level 9.9 9.5 8.5-10.1 mg/dl White Blood Count 5.19 4.8-10.8 K/uL Red Blood Count 4.26 4.2-5.4 M/uL Hemoglobin 13.3 12.0-16.0 g/dL Hematocrit 39.2 37-47 % Mean Corpuscular Volume 92.0 80-100 fL Mean Corpuscular Hemoglobin 31.2 25-34 pg Mean Corpuscular Hemoglobin Concent 33.9 32-36 g/dl Platelet Count 128 130-400 K/uL Mean Platelet Volume 11.9 7.4-10.4 fL Neutrophils (%) (Auto) 63.6 % Lymphocytes (%) (Auto) 24.1 % Monocytes (%) (Auto) 7.9 % Eosinophils (%) (Auto) 4.0 % Basophils (%) (Auto) 0.4 % Neutrophils # (Auto) 3.30 1.4-6.5 K/uL Lymphocytes # (Auto) 1.25 1.2-3.4 K/uL Monocytes # (Auto) 0.41 0.11-0.59 K/uL Eosinophils # (Auto) 0.21 0-0.5 K/uL Basophils # (Auto) 0.02 0-0.2 K/uL RDW Standard Deviation 49.1 36.4-46.3 fL RDW Coefficient of Variation 14.6 11.5-14.5 % Immature Granulocyte % (Auto) 0.0 % Immature Granulocyte # (Auto) 0.00 0.00-0.02 K/uL Test 04/09/17 11:14 04/09/17 15:57 Range/Units Bedside Glucose 185 226 70-90 mg/dl
[2017-04-09] MEDS: LORAZEPAM 0.5 MG TAB PO PRN (21:44)
[2017-04-10] VITALS (7 sets, daily range): BP systolic 133–171; BP diastolic 72–83; PULSE 65–73; TEMP 36.5–37.2; O2SAT 93–98
[2017-04-10] MEDS: HEPARIN SOD 5000 UNIT/0.5 ML CARP SQ SCH ×2 (06:04→14:00)
[2017-04-10 06:56] LABS: BUN/CREATININE RATIO 32.7 (10-20); CALCIUM 9.6 mg/dl (8.5-10.1); CREATININE 1.8 mg/dl (0.60-1.20); POTASSIUM 4.2 mmol/L (3.5-5.1)
[2017-04-10] MEDS: GABAPENTIN 100 MG CAP PO SCH (08:10)
[2017-04-10] MEDS: BUMETANIDE 1 MG TAB PO SCH (08:10)
[2017-04-10] MEDS: ALLOPURINOL 300 MG TAB PO SCH (08:10)
[2017-04-10] MEDS: ASPIRIN 81 MG ECTAB PO SCH (08:10)
[2017-04-10] MEDS: INSULIN ASPART 100 UNITS/ML 3 ML PEN SC SCH ×2 (08:13→12:20)
[2017-04-10] MEDS: INSULIN GLARGINE SOLOSTAR 100 UNITS/ML 3 ML PEN SC SCH (08:14)
--- NOTE | 2017-04-10 09:53 | Cardiology Follow-Up ---
Subjective General Date of Service: Apr 10, 2017. Pt evaluation today including: conversation w/ patient, physical exam, chart review, lab review, review of studies, review of inpatient medication list History of Present Illness The patient is a 76 year old female seen in follow-up. Feeling well from a cardiovascular standpoint. No recurrent bradycardia on monitor. Edema improved with Bumex. Serum potassium and renal function remained stable. Offers no complaints this time. Low-dose Toprol-XL remains on hold. Allergies Coded Allergies: Sulfamethoxazole w/Trimethoprim (Verified Allergy, Unknown, RASH, 04/07/17) Social History Smoking Status: Never Smoker Hx Tobacco Use In Past Year?: No Hx Alcohol Use - Type And Amou: No Hx Substance Use - Type And Am: No Problem List Medical Problems: (1) Acute renal failure Status: Acute (2) Bradycardia Status: Acute (3) Hyperkalemia Status: Acute (4) Weakness Status: Acute Review of Systems Respiratory: No cough, No sputum, No wheezing, No shortness of breath, No dyspnea at rest, No hemoptysis Cardiac: No chest pain, No orthopnea, No PND, No edema, No palpitations Physical Exam Vital Signs Last Vital Signs Documentation Date Time Temp Pulse Resp B/P (MAP) Pulse Ox O2 Delivery O2 Flow Rate FiO2 04/10/17 08:01 98 Room Air 04/10/17 07:17 36.7 65 19 133/83 (100) Physical Exam Constitutional: General Apperance: obese Level of Distress: NAD, chronically ill Head: normocephalic ENMT: normal ENT inspection Neck: supple, trachea midline Lungs: Auscultation: breath sounds normal, no wheezing, no rales/crackles, no rhonchi Cardiovascular: Heart Auscultation: RRR, normal S1, normal S2, no murmurs Abdomen: Inspection & Palpation: soft, non-distended, no tenderness, guarding & rebound Extremities: no cyanosis, no clubbing, no ulcers, edema (1+ B/L pedal, +B/L TEDs) Neurologic: Gait & Station: pertinent finding (No focal motor deficit) Cranial Nerves: grossly intact Assessment and Plan Assessment and Plan Impression: 1. Transient junctional bradycardia in the setting of hyperkalemia -Resolved; serum potassium within normal limits -Low-dose Toprol remains on hold 2. History of volume overload and right heart failure treated with high-dose diuretic and high dose potassium replacement. -patient appears compensated -Lasix transition to Bumex per nephrology 3. Acute kidney injury on chronic kidney disease - resolved; creatinine at baseline Plan / recommendations: Hold low dose Toprol-XL. Consider restart as outpatient. Continue diuretic therapy per direction of nephrology. Repeat basic metabolic panel in the a.m. Continue telemetry monitoring as inpatient. No further cardiac testing at this time. Will sign off. Recommend outpatient cardiology follow up in 1-2 weeks. Laboratory Results Last 24 Hours Test 04/09/17 11:14 04/09/17 15:57 04/09/17 20:35 04/10/17 06:10 Bedside Glucose 185 mg/dl 226 mg/dl 223 mg/dl Sodium Level 136 mmol/L Potassium Level 4.2 mmol/L Chloride Level 103 mmol/L Carbon Dioxide Level 28 mmol/L Anion Gap 5.0 mmol/L Blood Urea Nitrogen 59 mg/dl Creatinine 1.80 mg/dl Est Creatinine Clear Calc Drug Dose 31.0 ml/min Estimated GFR () 31.4 Estimated GFR (Non- 27.1 BUN/Creatinine Ratio 32.7 Random Glucose 233 mg/dl Calcium Level 9.6 mg/dl Test 04/10/17 06:39 Bedside Glucose 231 mg/dl
--- NOTE | 2017-04-10 10:21 | Nephrology Progress Note ---
Nephrology Progress Note Date of Service Apr 10, 2017. Chief Complaint Follow up evaluation of acute on chronic kidney injury, hyperkalemia and peripheral edema Subjective Ms. Gonzalez was seen & examined in the ICU this morning. She has responded well to diuretic therapy in the hospital setting. Her leg edema has nearly resolved. She is tolerating oral Bumex without side effect. She is anxious to return home Review of Systems Constitutional: No fever Cardiovascular: No chest pain, No palpitations Respiratory: No dyspnea at rest Abdomen: No pain, No nausea, No vomiting Extremities: + leg edema A complete review of systems was performed. Pertinent positives are noted above. All other systems are negative. Vital Signs Last 8 Hrs Date Time Temp Pulse Resp B/P (MAP) Pulse Ox O2 Delivery O2 Flow Rate FiO2 04/10/17 08:01 98 Room Air 04/10/17 07:17 36.7 65 19 133/83 (100) 97 Room Air 04/10/17 04:00 36.5 72 18 138/72 (94) 94 Room Air 04/10/17 04:00 Room Air Last Recorded Weight Weight (Kilograms): 106.900 Physical Exam General Appearance: no apparent distress Head: normocephalic, atraumatic Eyes: PERRL, EOMI Neck: no adenopathy Respiratory/Chest: lungs clear, no accessory muscle use Cardiovascular: regular rate, rhythm Abdomen/GI: normal bowel sounds, non tender, soft Extremities/Musculoskelatal: + pertinent finding (trace pretibial edema) Neurologic/Psych: alert, oriented x 3 Social History Smoking Status: Never smoker Drug Use: none Marital Status: Housing Status: lives alone Occupation: retired Laboratory Results Past 24 Hours 04/10/17 06:10 Test 04/09/17 11:14 04/09/17 15:57 04/09/17 20:35 04/10/17 06:10 Bedside Glucose 185 mg/dl (70-90) 226 mg/dl (70-90) 223 mg/dl (70-90) Anion Gap 5.0 mmol/L (3-11) Est Creatinine Clear Calc Drug Dose 31.0 ml/min Estimated GFR () 31.4 Estimated GFR (Non- 27.1 BUN/Creatinine Ratio 32.7 (10-20) Calcium Level 9.6 mg/dl (8.5-10.1) Test 04/10/17 06:39 Bedside Glucose 231 mg/dl (70-90) Allergies Coded Allergies: Sulfamethoxazole w/Trimethoprim (Verified Allergy, Unknown, RASH, 04/07/17) Medications Current Inpatient Medications Medications (Trade) Dose Ordered Sig/Claire Route Start Time Stop Time Status Last Admin Dose Admin Heparin Sodium (Porcine) (Heparin Sq 5000 Unit/0.5ml) 5,000 unit Q8 SQ 04/08/17 06:00 05/08/17 05:59 04/10/17 06:04 5,000 UNIT Acetaminophen (Tylenol Tab) 650 mg Q4H PRN PO 04/08/17 01:30 05/08/17 01:29 Nitroglycerin (Nitrostat Tab) 0.4 mg UD PRN SL 04/08/17 01:30 05/08/17 01:29 Insulin Aspart (novoLOG ASPART) SLIDING SCALE If C... ACHS SC 04/08/17 07:00 05/08/17 06:59 04/10/17 08:13 3 UNITS Glucose (Glucose 40% Gel) 15-30 GRAMS 15 GRAMS... UD PRN PO 04/08/17 01:30 05/08/17 01:29 Glucose (Glucose Chew Tab) 4-8 Tablets 4 Tabl... UD PRN PO 04/08/17 01:30 05/08/17 01:29 Dextrose (Dextrose 50% 50ML Syringe) 25-50ML OF 50% DW IV FOR... UD PRN IV 04/08/17 01:30 05/08/17 01:29 Glucagon (Glucagon Inj) 1 mg UD PRN SQ 04/08/17 01:30 05/08/17 01:29 Hydromorphone HCl (Dilaudid Inj) 0.5 mg Q3H PRN IV 04/08/17 01:30 04/22/17 01:29 Allopurinol (Zyloprim Tab) 300 mg QAM PO 04/08/17 09:00 05/08/17 08:59 04/10/17 08:10 300 MG Aspirin (Ecotrin Tab) 81 mg QAM PO 04/08/17 09:00 05/08/17 08:59 04/10/17 08:10 81 MG Gabapentin (Neurontin Cap) 200 mg BID PO 04/08/17 09:00 05/08/17 08:59 04/10/17 08:10 200 MG Lorazepam (Ativan Tab) 0.5 mg HS PRN PO 04/08/17 01:30 05/08/17 01:29 04/09/17 21:44 0.5 MG Oxycodone/ Acetaminophen (Percocet 5-325mg Tab) 1 tab Q6H PRN PO 04/08/17 01:30 04/22/17 01:29 Insulin Glargine (Lantus Solostar Pen) 5 units BID SC 04/08/17 09:00 05/08/17 08:59 04/10/17 08:14 5 UNITS Miconazole Nitrate (Desenex Powder) 1 appln PRN PRN EXT 04/08/17 20:15 05/08/17 20:14 Bumetanide (Bumex Tab) 1 mg BID17 PO 04/09/17 17:00 05/09/17 16:59 04/10/17 08:10 1 MG Impression (1) Acute renal insufficiency (2) Chronic kidney disease, stage IV (severe) (3) Hyperkalemia (4) Lymphedema (5) Coronary artery disease (6) Junctional bradycardia Ms. Gonzalez has AODM, ASCVD and stage IV CKD (baseline creatinine 1.7 - 2.1). She has chronic LE lymphedema requiring large doses of diuretics to maintain euvolemia. She also has a history of loop diuretic associated hypokalemia. She was admitted with hyperkalemia, ASPEN and junctional bradycardia. Baseline heart rate by review of clinic records has been 60-70 bpm. Anjali is clinically improving with medical management. Recommendations CKD: -- Patient has cardiorenal syndrome. Her baseline creatinine has been 1.7 - 2.1 -- Electrolyte balance is acceptable at this time. Continue to monitor PRP on daily basis HYPERKALEMIA: -- Corrected. Hold potassium supplements EDEMA: -- Limit oral NaCl intake to 1500 mg / day -- Continue Bumex 1 mg po BID -- Will prescribe medium strength knee high compression hose to be worn while awake and removed at bedtime OTHER: -- OK to discharge from Nephrology perspective. I have placed order in [facility] EMR for my insurance office manager staff to contact patient and schedule hospital follow up visit within 14 days. I have placed orders in EMR to have CMP and Mg prior to her office visit. Instructions discussed with patient this am.
[2017-04-10] MEDS ORDERED: BMX1 PO (13:01)
--- NOTE | 2017-04-10 13:06 | Discharge Instructions ---
Discharge Instructions Date of Service Apr 10, 2017. Admission Reason for Admission: Hyperkalemia Discharge Discharge Diagnosis / Problem: HYPPERKAEMIA, ARF,JUNCTIONAL BRADYCARDIA Discharge Goals Goal(s): Decrease discomfort, Improve function Activity Recommendations Activity Limitations: resume your previous activity . Instructions / Follow-Up Instructions / Follow-Up FOLLOWUP WITH FAMILY DOCTOR Maggie Amaro ON March AT 11AM. FOLLOWUP WITH CARDIOLOGY SCHEDULED. RESTART OF TOPROL XL(METOPROLOL SUCCINATE ) PER CARDIOLOGY. FOLLOWUP WITH NEPHROLOGY SCHEDULED IN 1-2 WEEKS WITH LAB WORK. LAB WORK TO BE ORDERED BY NEPHROLOGY. TO CHECK BLOOD SUGARS DAILY RECOMMENDED AND FOLLOW RESULTS WITH FAMILY DOCTOR. NEW MEDICATION: BUMEX 1MG PO TWICE DAILY. MEDICATIONS STOPPED: LASIX TOPROL XL METOLAZONE POTASSIUM SUPPLEMENTS FLUID RESTRICTIONS: 1500ML/DAY Call your Primary Care doctor if any of the following symptoms or problems start or get worse: * Shortness of breath or difficulty breathing * Wake up at night short of breath * Chest pain * Cough * Swelling of your hands, feet, or legs * More fatigued or tired with your normal activity * Palpitations - sudden fast heart beats WEIGHT * Weigh yourself every morning after using the bathroom. * Use the same scale. * Wear the same amount of clothing. * Write your weight down on a chart. * Call your Primary Care doctor if you gain more than 2-3 pounds in 1-2 days. MEDICATIONS * Use this discharge instruction sheet for medication instructions. * Take your medications at the time your doctor ordered. * Do not skip a dose of your medicines. * If you miss a dose of medicine, take it as soon as possible, but DO NOT DOUBLE A DOSE. * Read your medicine information when you get home. * Know all of the side effects of your medicine. If in doubt, ask your pharmacist * Call your Primary Care doctor's office if you have any side effects. * Be sure all of your doctors know what medicine and herbs you take (including cold, flu, and herbal medicine). Take the following with you to your follow-up doctor appointments: * Weight Chart * Medication List * List of questions Do not drink excessive alcohol, beer or wine. Current Hospital Diet Patient's current hospital diet: Diabetes Type 2 Diet, Low Potassium Diet (2g K) Discharge Diet Recommended Diet: Diabetes Type 2 Diet, Low Potassium Diet (2g K) Fluid Restriction: 1500 ml (6 cups) Pending Studies Studies pending at discharge: no Medical Emergencies . Who to Call and When: Call 911 or go to the Emergency Room if: * If at any time you feel your situation is an emergency * You have tightness or pain in your chest that does not go away with rest or Nitroglycerin * You are very short of breath even with rest . Non-Emergent Contact Non-Emergency issues call your: Primary Care Provider . . "Provider Documentation" section prepared by Johnathon Castillo. . VTE Core Measure Inpt VTE Proph given/why not?: Unfractionated heparin SQ
--- NOTE | 2017-04-10 20:09 | Progress Note ---
Internal Med Progress Note Date of Service: Apr 10, 2017. Provider Documentation: sitting on the chair comfortably slept ok no sob no nausea eating ok ok to go home. Exam: General-alert and awake. Not in distress ENT-normal hearing Neck-no neck masses Lungs-cta b/l no wheezing or crackles Heart-s1 and s2 heard regular rhythm no murmurs Abdomen-soft bowel sounds present non tender no distension Extremities-b/l lower extremity edema present no erythema Neuro-alert and awake moves extremities ASSESSMENT & PLAN: 1. Fall, Likely secondary to ARF on CRI, overdiuresis. Question of symptomatic bradycardia. pt/ot currently stable. 2. hyperkalemia secondary t arf and potassium supplements received insulin, dextrose, calcium gluconate and Kayexalate resolved f/u labs with pcp and nephrology Junctional rhythm with bradycardia mostly from hyperkalemia' holding toprol xl appreciate cardiology inputs cardiology to followup as out patient and reinitiating of Toprol xl as per cardiology. ARF on CKD stage 3 baseline cr 1.7 - 2.1 presented with cr 2.8 Lasix held initially cr 1.7 on 04/09/17 started on Bumex by nephrology cr 1.8 on 04/10/17 will f/u labs with nephrology Chronic Lower extremity lymphedema from chronic right heart failure? with preserved EF repeat echo no failure was requiring high doses of diuretics to keep euvolemic and loop diuretics were causing hypokalemia so wa taking potassium supplemenst as per nephrology currently initiated on Bumex.f/u with nephrology and cardiology Hypertension, Toprol xl held on Bumex will monitor. Coronary artery disease status post stenting. On aspirin,B padma on hold as above DM2, insulin requiring. Well controlled as of recent outpatient hemoglobin A1c of 6.7 last November 2016 On Lantus and ISS. d/c on home meds. followup with pcp discharged home Vital Signs: Date Time Temp Pulse Resp B/P (MAP) Pulse Ox O2 Delivery O2 Flow Rate FiO2 04/10/17 14:01 37.2 73 18 98 Room Air 04/10/17 12:58 98 Room Air 04/10/17 12:21 37.2 73 18 171/74 (106) 94 Room Air 04/10/17 08:01 98 Room Air 04/10/17 07:17 36.7 65 19 133/83 (100) 97 Room Air 04/10/17 04:00 36.5 72 18 138/72 (94) 94 Room Air 04/10/17 04:00 Room Air 04/10/17 00:02 Room Air 04/10/17 00:00 36.5 70 18 146/78 (100) 93 Room Air Lab Results: Results Past 24 Hours Test 04/09/17 20:35 04/10/17 06:10 04/10/17 06:39 04/10/17 11:05 Range/Units Bedside Glucose 223 231 277 70-90 mg/dl Sodium Level 136 136-145 mmol/L Potassium Level 4.2 3.5-5.1 mmol/L Chloride Level 103 98-107 mmol/L Carbon Dioxide Level 28 21-32 mmol/L Anion Gap 5.0 3-11 mmol/L Blood Urea Nitrogen 59 7-18 mg/dl Creatinine 1.80 0.60-1.20 mg/dl Est Creatinine Clear Calc Drug Dose 31.0 ml/min Estimated GFR () 31.4 Estimated GFR (Non- 27.1 BUN/Creatinine Ratio 32.7 1020 Random Glucose 233 70-99 mg/dl Calcium Level 9.6 8.5-10.1 mg/dl
--- NOTE | 2017-04-10 20:12 | Discharge Summary ---
Discharge Summary Date of Service Apr 10, 2017. Discharge Summary Admission Date: Apr 08, 2017 at 00:44 Discharge Date: Apr 10, 2017 Discharge Disposition: Home Principal Diagnosis: HYPERKALEMIA ARF JUNCTIONAL RHYTHM WITH BRADYCARDIA Secondary Diagnoses/Problems: CAD post-stenting, chronic diastolic heart failure, EF of 55-59% (2D echo February 2017 EF 70%, hypertension, DM2 insulin requiring, hyperlipidemia, gout, chronic renal insufficiency Procedures: CT HEAD: 1. No acute intracranial pathology. CXR: 1. No acute cardiopulmonary disease. Consultations: NEPHROLOGY CARDIOLOGY Medication Reconciliation New Medications: Bumetanide (Bumetanide) 1 Mg Tab 1 MG PO BID17 for 30 Days, #60 TAB 1 Refill Continued Medications: Allopurinol (Zyloprim) 300 Mg Tab 300 MG PO QAM, TAB Aspirin Enteric Coated (Ecotrin Or Generic) 81 Mg Tab 81 MG PO QAM, TAB Atorvastatin (Lipitor) 80 Mg Tab 80 MG PO QAM, TAB Gabapentin (Neurontin) 300 Mg Cap 600 MG PO QAM, CAP Gabapentin (Neurontin) 300 Mg Cap 900 MG PO HS Insulin Aspart (Novolog Penfill) 100 Unit/Ml Inj 14 UNITS SQ QA Insulin Aspart (Novolog Penfill) 100 Unit/Ml Inj 16 UNITS SQ LUNCH Insulin Aspart (Novolog Penfill) 100 Unit/Ml Inj 18 UNITS SQ SUPPER Insulin Glargine (Lantus Solostar) 100 Unit/Ml Inj 50 UNITS SQ QAM, #30 Insulin Glargine (Lantus Solostar) 100 Unit/Ml Inj 60 SC QPM, PEN Lorazepam (Lorazepam) 2 Mg Tab 2 MG PO HS, #30 Nitroglycerin (Nitrostat) 0.4 Mg Tab 0.4 MG UT PRN, TAB Nystatin (Nystatin Cream) 90 Appln/30 Gm Cr 1 APPLN TOP BID PRN for RASH, #30 Oxycodone/Acetaminophen 5MG/325MG (Percocet 5MG/325MG) Tab 1 TABLET PO Q6H PRN for Pain, TAB PAIN Discontinued Medications: Furosemide (Lasix) 40 Mg Tab 40 MG PO HS, TAB Furosemide (Lasix) 40 Mg Tab 80 MG PO QAM, TAB Metolazone (Zaroxolyn) 5 Mg Tab 5 MG PO DAILY PRN for SWELLING, TAB Metoprolol Succinate (Toprol Xl) 25 Mg Tab 12.5 MG PO QAM Potassium Chloride (K-Tab) 20 Meq Tab 3 TABS PO BID Admission Information HPI (per Admitting provider): History obtained from patient and records. Medical history significant for CAD post-stenting, chronic diastolic heart failure, EF of 55-59% (2D echo February 2017 EF 70%, hypertension, DM2 insulin requiring, hyperlipidemia, gout, chronic renal insufficiency (baseline creatinine 1.7 to 2.1 as per records) Recent confinement last April 2012 for acute renal failure, volume overload, bradycardia. Recent [facility] outpatient visit last month. Patient noted to be fluid overloaded. Diuretics deferred to nephrology as per note. Felodipine stopped for possible contribution to leg swelling. Imdur dose increased. 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 24-hour Holter monitor contemplated to assess for significant bradyarrhythmias given complaints of chronic fatigue. Planned evaluation for obstructive sleep apnea as well. Conclusions from Holter monitor done March 14 as follows : dominant rhythm sinus rhythm, frequent PVCs noted, bigeminy. No symptoms during episode. Patient seen by [facility] about 3 weeks ago. leg swelling improving on diuretic as per note. Outpatient potassium noted to be low. Kidney function stable at that time, Furosemide decreased to 40 mg twice daily, spironolactone started. Patient encouraged to eat bananas as per patient. KCl supplements prescribed. Yesterday the patient felt weak when she got out of bed. No chest pain, no shortness of breath, no headache, some dizziness. Good appetite. Weight loss, decreased leg swelling with home diuretic regimen. Patient directed by PCP to the Emergency Room. Physical Exam (per Admitting): VITAL SIGNS: Blood pressure was noted to be 131/48, pulse rate of 45, RR 16, T 37 O2 sats 98 room air. GENERAL: Pleasant, no respiratory distress, obese. Looks younger for stated age. SKIN: Normal color. HEAD, EYES, EARS, NOSE, AND THROAT: [place] palpebral conjunctivae, dry buccal mucosa NECK: Short neck. LUNGS: Decreased effort. HEART: Bradycardic. ABDOMEN: Soft. NT EXTREMITIES: Some LE edema. No tenderness. NEUROLOGIC: No gross focality. Hospital Course 1. Fall, Likely secondary to ARF on CRI, overdiuresis. Question of symptomatic bradycardia. pt/ot currently stable. 2. hyperkalemia secondary t arf and potassium supplements received insulin, dextrose, calcium gluconate and Kayexalate resolved f/u labs with pcp and nephrology Junctional rhythm with bradycardia mostly from hyperkalemia' holding toprol xl appreciate cardiology inputs cardiology to followup as out patient and reinitiating of Toprol xl as per cardiology. ARF on CKD stage 3 baseline cr 1.7 - 2.1 presented with cr 2.8 Lasix held initially cr 1.7 on 04/09/17 started on Bumex by nephrology cr 1.8 on 04/10/17 will f/u labs with nephrology Chronic Lower extremity lymphedema from chronic right heart failure? with preserved EF repeat echo no failure was requiring high doses of diuretics to keep euvolemic and loop diuretics were causing hypokalemia so wa taking potassium supplemenst as per nephrology currently initiated on Bumex.f/u with nephrology and cardiology Hypertension, Toprol xl held on Bumex will monitor. Coronary artery disease status post stenting. On aspirin,B padma on hold as above DM2, insulin requiring. Well controlled as of recent outpatient hemoglobin A1c of 6.7 last November 2016 On Lantus and ISS. d/c on home meds. followup with pcp discharged home Total time spent on discharge = 35MINUTES This includes examination of the patient, discharge planning, medication reconciliation, and communication with other providers. Discharge Instructions Discharge Instructions Date of Service Apr 10, 2017. Admission Reason for Admission: Hyperkalemia Discharge Discharge Diagnosis / Problem: HYPPERKAEMIA, ARF,JUNCTIONAL BRADYCARDIA Discharge Goals Goal(s): Decrease discomfort, Improve function Activity Recommendations Activity Limitations: resume your previous activity . Instructions / Follow-Up Instructions / Follow-Up FOLLOWUP WITH FAMILY DOCTOR Maggie Amaro ON March AT 11AM. FOLLOWUP WITH CARDIOLOGY SCHEDULED. RESTART OF TOPROL XL(METOPROLOL SUCCINATE ) PER CARDIOLOGY. FOLLOWUP WITH NEPHROLOGY SCHEDULED IN 1-2 WEEKS WITH LAB WORK. LAB WORK TO BE ORDERED BY NEPHROLOGY. TO CHECK BLOOD SUGARS DAILY RECOMMENDED AND FOLLOW RESULTS WITH FAMILY DOCTOR. NEW MEDICATION: BUMEX 1MG PO TWICE DAILY. MEDICATIONS STOPPED: LASIX TOPROL XL METOLAZONE POTASSIUM SUPPLEMENTS FLUID RESTRICTIONS: 1500ML/DAY Call your Primary Care doctor if any of the following symptoms or problems start or get worse: * Shortness of breath or difficulty breathing * Wake up at night short of breath * Chest pain * Cough * Swelling of your hands, feet, or legs * More fatigued or tired with your normal activity * Palpitations - sudden fast heart beats WEIGHT * Weigh yourself every morning after using the bathroom. * Use the same scale. * Wear the same amount of clothing. * Write your weight down on a chart. * Call your Primary Care doctor if you gain more than 2-3 pounds in 1-2 days. MEDICATIONS * Use this discharge instruction sheet for medication instructions. * Take your medications at the time your doctor ordered. * Do not skip a dose of your medicines. * If you miss a dose of medicine, take it as soon as possible, but DO NOT DOUBLE A DOSE. * Read your medicine information when you get home. * Know all of the side effects of your medicine. If in doubt, ask your pharmacist * Call your Primary Care doctor's office if you have any side effects. * Be sure all of your doctors know what medicine and herbs you take (including cold, flu, and herbal medicine). Take the following with you to your follow-up doctor appointments: * Weight Chart * Medication List * List of questions Do not drink excessive alcohol, beer or wine. Current Hospital Diet Patient's current hospital diet: Diabetes Type 2 Diet, Low Potassium Diet (2g K) Discharge Diet Recommended Diet: Diabetes Type 2 Diet, Low Potassium Diet (2g K) Fluid Restriction: 1500 ml (6 cups) Pending Studies Studies pending at discharge: no Medical Emergencies . Who to Call and When: Call 911 or go to the Emergency Room if: * If at any time you feel your situation is an emergency * You have tightness or pain in your chest that does not go away with rest or Nitroglycerin * You are very short of breath even with rest . Non-Emergent Contact Non-Emergency issues call your: Primary Care Provider . . "Provider Documentation" section prepared by Johnathon Castillo. . VTE Core Measure Inpt VTE Proph given/why not?: Unfractionated heparin SQ
== END 2017-04-10 14:33 | disposition home or self-care (01) | DRG 683 ==
LOC: C.EDB 18:38 → C.2E 04-08 00:44 → ENRESERV 04-08 01:10
PROVIDERS: ADMIT Internal Medicine; ATTEND Internal Medicine
DX: N17.9 Acute kidney failure, unspecified (principal); I13.0 Hypertensive heart and chronic kidney disease with heart failure and stage 1 through stage 4 chronic kidney disease, or unspecified chronic kidney disease; I50.32 Chronic diastolic (congestive) heart failure; Z68.41 Body mass index [BMI] 40.0-44.9, adult; E87.5 Hyperkalemia; R00.1 Bradycardia, unspecified; I89.0 Lymphedema, not elsewhere classified; N18.4 Chronic kidney disease, stage 4 (severe); R29.6 Repeated falls; I25.10 Atherosclerotic heart disease of native coronary artery without angina pectoris; E11.22 Type 2 diabetes mellitus with diabetic chronic kidney disease; E11.40 Type 2 diabetes mellitus with diabetic neuropathy, unspecified; E78.5 Hyperlipidemia, unspecified; M10.9 Gout, unspecified; E66.9 Obesity, unspecified; I25.2 Old myocardial infarction; Z98.61 Coronary angioplasty status; Z79.4 Long term (current) use of insulin; Z79.82 Long term (current) use of aspirin; Z79.899 Other long term (current) drug therapy; Z88.2 Allergy status to sulfonamides; Z82.49 Family history of ischemic heart disease and other diseases of the circulatory system; Z83.3 Family history of diabetes mellitus; Z82.3 Family history of stroke; E55.9 Vitamin D deficiency, unspecified; E87.6 Hypokalemia

== ENCOUNTER → 2017-04-19 | Outpatient (CLI) | payer OTHER ==
[~2017-04-19] MED LIST changes: -ATV/1 PO; +ATV2 PO; +BMX1 PO; -CHOL100027 PO; -FURO40TA3 PO; +INSDGIPEN SC; +INSDGIPEN SQ; +INSU1INJ2 SQ; -INSU1INJ7 SC; -IRBE-37 PO; -LSX/40 PO; -METO1TAB31 PO; -METO5TAB25 PO; -NVLGI SC; +NYSCR30 TOP; -NYSTOIN5 TOP; +OXYC-57 PO; -POTA1TAB97 PO; -TRAM-10 PO
[2017-04-19 12:18] LABS: HEMATOCRIT 44.2 % (37-47); MEAN CELL VOLUME 95.1 fL (80-100); MEAN CORPUSCULAR HEMOGLOBIN 30.1 pg (25-34); MEAN CORPUSCULAR HGB CONC 31.7 g/dl (32-36); MEAN PLATELET VOLUME 11.4 fL (7.4-10.4); PLATELET COUNT 174 K/uL (130-400); RED BLOOD COUNT 4.65 M/uL (4.2-5.4); WHITE BLOOD COUNT 7.01 K/uL (4.8-10.8)
[2017-04-19 12:28] LABS: URINE APPEARANCE CLEAR (CLEAR); URINE BILIRUBIN NEG (NEG); URINE COLOR YELLOW; URINE EPITHELIAL CELL AUTO 20-30 /lpf (0-5); URINE NITRITE NEG (NEG); URINE SPECIFIC GRAVITY 1.019 (1.000-1.030); UROBILINOGEN NEG (NEG)
[2017-04-19 12:31] LABS: ALT/SGPT 33 U/L (12-78); AST/SGOT 36 U/L (15-37); BLOOD UREA NITROGEN 53 mg/dl (7-18); BUN/CREATININE RATIO 35.4 (10-20); CALCIUM 10.5 mg/dl (8.5-10.1); CARBON DIOXIDE 31 mmol/L (21-32); CHLORIDE 102 mmol/L (98-107); GLUCOSE 57 mg/dl (70-99); MAGNESIUM 2.2 mg/dl (1.8-2.4); POTASSIUM 3.7 mmol/L (3.5-5.1); SODIUM 139 mmol/L (136-145)
[2017-04-19 12:34] LABS: ALB/GLOB RATIO 0.8 (0.9-2); ALKALINE PHOSPHATASE 74 U/L (45-117)
[2017-04-19 12:36] LABS: MANUAL MICROSCOPIC REQUIRED? NO; REVIEW REQ? NO
[2017-04-19 12:49] LABS: URINE PROTIEN/CREAT RATIO 0.1 (0-0.2); URINE TOTAL PROTEIN 7.4 mg/dl (0-11.9)
== END | disposition home or self-care (01) ==
LOC: C.LAB1850 10:45
PROVIDERS: ATTEND Internal Medicine Nephrology
DX: I12.9 Hypertensive chronic kidney disease with stage 1 through stage 4 chronic kidney disease, or unspecified chronic kidney disease (principal); E11.22 Type 2 diabetes mellitus with diabetic chronic kidney disease; N18.3 Chronic kidney disease, stage 3 (moderate); E87.6 Hypokalemia; R60.9 Edema, unspecified

== ENCOUNTER → 2017-05-27 | Outpatient (CLI) | payer OTHER ==
--- NOTE | 2017-05-27 15:46 | MAMMOGRAPHY REPORT ---
BILATERAL DIGITAL SCREENING MAMMOGRAM WITH CAD: 05/27/2017 CLINICAL HISTORY: Routine screening. Patient has no complaints. TECHNIQUE: Current study was also evaluated with a Computer Aided Detection (CAD) system. Bilateral CC and MLO views were obtained. COMPARISON: Comparison is made to exams dated: 04/30/2016 mammogram, 04/29/2015 mammogram, 04/09/2014 muriel mogram, 04/09/2014 stereotactic biopsy, 03/25/2014 mammogram, and 03/12/2014 mammogram - [facility]. BREAST COMPOSITION: There are scattered areas of fibroglandular density in both breasts. FINDINGS: No suspicious masses, calcifications, or areas of architectural distortion are noted in ei ther breast. There has been no significant interval change compared to prior exams. A biopsy marker clip is again noted in the left upper outer quadrant. Bilateral benign-appearing calcifications are again noted. IMPRESSION: ACR BI-RADS CATEGORY 2: BENIGN There is no mammographic evidence of malignancy. A 1 year screening mammogram is recommended. The pa tient will receive written notification of the results. Approximately 10% of breast cancers are not detected with mammography. A negative mammographic report should not delay biopsy if a clinically suggestive mass is present. Haley Sams M.D. /:05/27/2017 12:15:54 [employer]: Pinky Dvais, [facility] letter sent: Normal 1/2 BI-RADS Code: ACR BI-RADS Category 2: Benign
== END | disposition home or self-care (01) ==
LOC: C.MAMM 11:08
PROVIDERS: ATTEND Family Medicine
DX: Z12.31 Encounter for screening mammogram for malignant neoplasm of breast (principal)

== ENCOUNTER → 2017-07-19 | Outpatient (CLI) | payer OTHER ==
[2017-07-19 12:40] LABS: BLOOD UREA NITROGEN 71 mg/dl (7-18); BUN/CREATININE RATIO 42.6 (10-20); CALCIUM 10.2 mg/dl (8.5-10.1); CARBON DIOXIDE 34 mmol/L (21-32); CHLORIDE 96 mmol/L (98-107); CREATININE 1.67 mg/dl (0.60-1.20); GLUCOSE 212 mg/dl (70-99); PHOSPHORUS 3.2 mg/dl (2.5-4.9); POTASSIUM 2.9 mmol/L (3.5-5.1); SODIUM 137 mmol/L (136-145)
[2017-07-22 22:20] LABS: FREE KAPPA 35.7 MG/L (3.3-19.4); FREE KAPPA/LAMBDA RATIO 1.61 (0.26-1.65); FREE LAMBDA 22.2 MG/L (5.7-26.3)
== END | disposition home or self-care (01) ==
LOC: C.LABBFT 08:05
PROVIDERS: ATTEND Internal Medicine Nephrology
DX: I10 Essential (primary) hypertension (principal); N18.3 Chronic kidney disease, stage 3 (moderate); R60.9 Edema, unspecified; E55.9 Vitamin D deficiency, unspecified; E83.52 Hypercalcemia

== ENCOUNTER → 2017-07-27 | Outpatient (CLI) | payer OTHER ==
[2017-07-27 10:11] LABS: BLOOD UREA NITROGEN 61 mg/dl (7-18); BUN/CREATININE RATIO 40.7 (10-20); CALCIUM 9.8 mg/dl (8.5-10.1); CARBON DIOXIDE 31 mmol/L (21-32); CHLORIDE 104 mmol/L (98-107); CREATININE 1.51 mg/dl (0.60-1.20); GLUCOSE 130 mg/dl (70-99); PHOSPHORUS 2.5 mg/dl (2.5-4.9); POTASSIUM 3.9 mmol/L (3.5-5.1); SODIUM 140 mmol/L (136-145)
== END | disposition home or self-care (01) ==
LOC: C.LAB1850 08:26
PROVIDERS: ATTEND Physician Assistant Medical
DX: N18.9 Chronic kidney disease, unspecified (principal)

== ENCOUNTER 2017-09-16 11:37 | Observation (INO) | payer OTHER ==
[~2017-09-16] VITALS: Ht 157.5 cm; Wt 107.2 kg
[~2017-09-16 11:37] MED LIST changes: +CEPH500C2 PO; +POTA20TA16 PO
[2017-09-16 12:38] LABS: HEMATOCRIT 43.1 % (37-47); HEMOGLOBIN 14.3 g/dL (12.0-16.0); MEAN CELL VOLUME 95.8 fL (80-100); MEAN CORPUSCULAR HEMOGLOBIN 31.8 pg (25-34); MEAN CORPUSCULAR HGB CONC 33.2 g/dl (32-36); MEAN PLATELET VOLUME 11.8 fL (7.4-10.4); PLATELET COUNT 167 K/uL (130-400); RED CELL DISTRIBUTION WIDTH CV 14.4 % (11.5-14.5); RED CELL DISTRIBUTION WIDTH SD 50.1 fL (36.4-46.3); WHITE BLOOD COUNT 5.77 K/uL (4.8-10.8)
[2017-09-16 12:46] LABS: PTT PATIENT 25.8 SECONDS (21.0-31.0)
[2017-09-16 12:49] LABS: ALBUMIN 3.6 gm/dl (3.4-5.0); CREATININE 1.31 mg/dl (0.60-1.20); POTASSIUM 3.5 mmol/L (3.5-5.1)
[2017-09-16 12:54] LABS: CKMB 5.3 ng/ml (0.5-3.6)
--- NOTE | 2017-09-16 13:02 | DIAGNOSTIC IMAGING REPORT ---
SINGLE VIEW CHEST CLINICAL HISTORY: Atypical chest pain. FINDINGS: An AP, portable, upright chest radiograph is compared to study dated 04/07/2017. The examination is degraded by portable technique and patient rotation. The heart is mildly enlarged and there is atherosclerotic calcification of the thoracic aorta. The pulmonary vasculature is noncongested. Chronic interstitial thickening is similar to previous. The lungs and pleural spaces are clear. No pneumothorax is seen. The skeletal structures are osteopenic. The bony thorax is grossly intact. IMPRESSION: Cardiomegaly with no acute cardiopulmonary abnormality. Electronically signed by: William Blair M.D. 09/16/2017 1:00 PM Dictated Date/Time: 09/16/2017 1:00 PM
[2017-09-16] MEDS ORDERED: NITROGLYCERIN OINT 2% 1GM PACKET EXT STA (13:03)
--- NOTE | 2017-09-16 13:19 | EMERGENCY ROOM VISIT NOTE ---
History Report prepared by Pema: Artie Aponte Under the Supervision of: Dr. William Coburn M.D. First contact with patient: 12:59 Chief Complaint: CHEST PAIN Stated Complaint: SHOULDER PAIN/CHEST PAIN Nursing Triage Summary: Pt arrives ALS for evaluation of pain between shoulder blades and mid chest pressure which began on 09/13/16. 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 Today the pain continues and took a NTG s/l around 0810 ; reports took the "edge" off the pain/discomfort. Pt then went to her PCP and was sent to the ED for further evalution. Pt received second NTG s/l in route to ED. Pt reports she is DM/insulin dependent, NSTEMI, wound to rge right lateral lower leg, sees the wound clinic for this. Wears 2/l o2 AT HS History of Present Illness The patient is a 76 year old female who presents to the Emergency Room via ambulance with complaints of intermittent chest pain for the past three days which she describes as a pressure. The patient states that she currently has no pain, though the pain was a 4/10 this morning and lasted approximately 15 minutes. She additionally states that she is having pain between her shoulder blades, though she denies any shoulder, arm, or jaw pain. She additionally denies any shortness of breath, nausea, or sweating. The patient states that she had an episode three days ago, yesterday, and this morning, and she was seen at her PCP, and they sent her to be evaluated. The patient was given nitro and aspirin en route, and these both relived the pain. The patient had a coronary stent placed 15 years ago. The patient notes that she has been taking all of her medications. She additionally states that she has been having a little more shortness of breath on exertion recently. Source of History: patient Onset: three days ago Position: chest Symptom Intensity: 4/10 Quality: pressure Timing: intermittent Modifying Factors (Relieving): other (nitro and aspirin) Associated Symptoms: No SOB, No nausea Note: Associated symptoms: Pain between her shoulder blades. Review of Systems See HPI for pertinent positives & negatives. A total of 10 systems reviewed and were otherwise negative. Past Medical & Surgical Medical Problems: (1) Acute renal insufficiency (2) Benign hypertension (3) Chronic kidney disease stage 3 (4) Chronic kidney disease, stage IV (severe) (5) Coronary artery disease (6) Coronary artery disease (7) Diabetes mellitus type 2 (8) Dyslipidemia (9) Glaucoma (10) Gout (11) Hyperkalemia (12) Junctional bradycardia (13) Lymphedema (14) Morbid obesity (15) Neuropathy Social History Smoking Status: Never Smoker Drug Use: none Marital Status: Housing Status: lives with family Occupation Status: retired Current/Historical Medications Scheduled Allopurinol (Zyloprim), 300 MG PO QAM Aspirin Enteric Coated (Ecotrin Or Generic), 81 MG PO QAM Atorvastatin (Lipitor), 80 MG PO QAM Bumetanide (Bumetanide), 1 MG PO BID17 Gabapentin (Neurontin), 600 MG PO QAM Gabapentin (Neurontin), 900 MG PO HS Insulin Aspart (Novolog Penfill), 14 UNITS SQ QA Insulin Aspart (Novolog Penfill), 16 UNITS SQ LUNCH Insulin Aspart (Novolog Penfill), 18 UNITS SQ SUPPER Insulin Glargine (Lantus Solostar), 50 UNITS SQ QAM Insulin Glargine (Lantus Solostar), 30 UNITS SC QPM Nitroglycerin (Nitrostat), 0.4 MG UT PRN Potassium Ext Rel (Klor-Con), 60 MEQ PO BID Scheduled PRN Lorazepam (Lorazepam), 2 MG PO HS PRN for Sleep Allergies Coded Allergies: Sulfamethoxazole w/Trimethoprim (Verified Allergy, Unknown, RASH, 09/16/17) Codeine (Verified Adverse Reaction, Mild, nausea, 09/16/17) Physical Exam Vital Signs Date Time Temp Pulse Resp B/P (MAP) Pulse Ox O2 Delivery O2 Flow Rate FiO2 09/16/17 13:23 67 18 199/75 93 Room Air 09/16/17 12:28 68 18 179/100 95 Room Air 09/16/17 12:26 95 Room Air 09/16/17 12:24 95 Room Air 09/16/17 12:18 36.9 82 15 174/97 95 Room Air 09/16/17 12:15 67 09/16/17 11:53 95 Room Air Physical Exam GENERAL: Patient is in no acute distress. HEENT: No acute trauma, normocephalic atraumatic, mucous membranes moist, no nasal congestion, no scleral icterus. NECK: No stridor, no adenopathy, no meningismus, trachea is midline. LUNGS: Clear to auscultation bilaterally, no wheeze, no rhonchi, breath sounds equal. HEART: Without murmurs gallops or rubs, regular rate and rhythm. ABDOMEN: Soft, nontender, bowel sounds positive, no hernias, no peritonitis. EXTREMITIES: No obvious trauma. Wrap on the right leg. Left leg shows some mild edema. NEUROLOGIC: Oriented x 3, no acute motor or sensory deficits, no focal weakness. SKIN: No rash, no jaundice, no diaphoresis. Medical Decision & Procedures ER Provider Diagnostic Interpretation: Radiology results as stated below per my review and radiologist interpretation: SINGLE VIEW CHEST CLINICAL HISTORY: Atypical chest pain. FINDINGS: An AP, portable, upright chest radiograph is compared to study dated 04/07/2017. The examination is degraded by portable technique and patient rotation. The heart is mildly enlarged and there is atherosclerotic calcification of the thoracic aorta. The pulmonary vasculature is noncongested. Chronic interstitial thickening is similar to previous. The lungs and pleural spaces are clear. No pneumothorax is seen. The skeletal structures are osteopenic. The bony thorax is grossly intact. IMPRESSION: Cardiomegaly with no acute cardiopulmonary abnormality. Electronically signed by: William Blair M.D. 09/16/2017 1:00 PM Dictated Date/Time: 09/16/2017 1:00 PM Laboratory Results 09/16/17 12:00 09/16/17 12:00 Test 09/16/17 12:00 09/16/17 12:54 09/16/17 13:29 Red Blood Count 4.50 M/uL (4.2-5.4) Mean Corpuscular Volume 95.8 fL (80-100) Mean Corpuscular Hemoglobin 31.8 pg (25-34) Mean Corpuscular Hemoglobin Concent 33.2 g/dl (32-36) RDW Standard Deviation 50.1 fL (36.4-46.3) RDW Coefficient of Variation 14.4 % (11.5-14.5) Mean Platelet Volume 11.8 fL (7.4-10.4) Prothrombin Time 10.4 SECONDS (9.0-12.0) Prothromb Time International Ratio 1.0 (0.9-1.1) Activated Partial Thromboplast Time 25.8 SECONDS (21.0-31.0) Partial Thromboplastin Ratio 1.0 Anion Gap 4.0 mmol/L (3-11) Est Creatinine Clear Calc Drug Dose 43.1 ml/min Estimated GFR () 46.0 Estimated GFR (Non- 39.7 BUN/Creatinine Ratio 27.6 (10-20) Calcium Level 10.0 mg/dl (8.5-10.1) Total Bilirubin 0.5 mg/dl (0.2-1) Aspartate Amino Transf (AST/SGOT) 30 U/L (15-37) Alanine Aminotransferase (ALT/SGPT) 35 U/L (12-78) Alkaline Phosphatase 84 U/L (45-117) Total Creatine Kinase 312 U/L (26-192) Creatine Kinase MB 5.3 ng/ml (0.5-3.6) Creatine Kinase MB Ratio 1.7 (0-3.0) Total Protein 8.0 gm/dl (6.4-8.2) Albumin 3.6 gm/dl (3.4-5.0) Globulin 4.4 gm/dl (2.5-4.0) Albumin/Globulin Ratio 0.8 (0.9-2) Bedside Troponin I < 0.030 ng/ml (0-0.045) Laboratory results reviewed by me. Medications Administered Medications (Trade) Dose Ordered Sig/Claire Route Start Time Stop Time Status Last Admin Dose Admin Nitroglycerin (Nitroglycerin 2% Oint) 1 inch NOW STAT EXT 09/16/17 13:03 09/16/17 13:06 DC 09/16/17 13:21 1 INCH ECG Indication: chest pain Rate (beats per minute): 69 Rhythm: normal sinus Findings: no acute ischemic change, no ectopy Change: Patient's EKG interpreted by me. ED Course 1259: The patient was evaluated in room B12. A complete history and physical exam was performed. I discussed the treatment plan with her, and she was agreeable. She will be evaluated for further treatment. 1303: Nitroglycerin 1 inch EXT 1325: Discussed the patient's case [facility]. The patient will be evaluated for further management. Medical Decision Differential diagnoses include: angina, OK, musculoskeletal pain, anemia, electrolyte imbalance, pneumonia, CHF, PE, aortic dissection. There is no leukocytosis or concerning anemia. No coagulopathy. No evidence for renal failure or for significant electrolyte abnormality that requires correction. There was no hepatitis. EKG shows a normal sinus rhythm, there was no evidence for ischemia. Cardiac enzyme testing times one does not suggest acute cardiac injury. Chest film does not show pneumonia, mediastinal widening or pneumothorax. Currently, the patient is pain-free. The patient presents with chest pressure that moves into her back. She has had a coronary stent in the past. Today, nitroglycerin has relieved her pain. She had received oral aspirin prior to arrival, no additional aspirin was given. The patient received 1 inch of Nitropaste. I do think a hospital stay is warranted, angina is a possibility. Further cardiac workup is required. I spoke to the patient and case management. The on -call hospitalist was consulted. Medication Reconcilliation Current Medication List: was personally reviewed by me Blood Pressure Screening Patient's blood pressure: Elevated blood pressure Monitored by the hospitalist. Consults Time Called: 1310 Consulting Physician: Dr. Jakob Echeverria Hospitalist Returned Call: 1325 Discussed the patient's case with Dr. Jakob Echeverria [facility]. The patient will be evaluated for further management. Impression Primary Impression: Precordial chest pain Scribe Attestation The scribe's documentation has been prepared under my direction and personally reviewed by me in its entirety. I confirm that the note above accurately reflects all work, treatment, procedures, and medical decision making performed by me. Departure Information Dispostion Being Evaluated By Hospitalist Referrals Maggie Dangelo M.D. (PCP) Patient Instructions My [facility]
[2017-09-16 14:00] VITALS: O2SAT 93; BMI 43.8
[2017-09-16] MEDS ORDERED: NITROGLYCERIN 0.4 MG SL PER TAB CHARGE SL PRN (14:00)
[2017-09-16] MEDS ORDERED: ACETAMINOPHEN 325 MG TAB PO PRN (14:00)
[2017-09-16] MEDS ORDERED: ALUMINUM/MAGNESIUM/SIMETH (MAALOX MAX) 30 ML UDC PO PRN (14:00)
[2017-09-16] MEDS ORDERED: ONDANSETRON INJ 2 MG/ML 2 ML VIAL IV PRN (14:00)
[2017-09-16] MEDS ORDERED: MAGNESIUM HYDROXIDE SUSP 30 ML UDC PO PRN (14:00)
[2017-09-16] MEDS ORDERED: POLYETHYLENE (MIRALAX) 17 GM PACK PO PRN (14:00)
[2017-09-16] MEDS ORDERED: NITROGLYCERIN OINT 2% 1GM PACKET EXT ONE (14:15)
[2017-09-16] MEDS ORDERED: GLUCOSE 40% GEL 15 GM TUBE PO PRN (14:30)
[2017-09-16] MEDS ORDERED: DEXTROSE 50% 50 ML SYR IV PRN (14:30)
[2017-09-16] MEDS ORDERED: GLUCOSE 10 TABS/TUBE PO PRN (14:30)
[2017-09-16] MEDS ORDERED: GLUCAGON FOR INJ 1 MG VIAL SQ PRN (14:30)
[2017-09-16] MEDS ORDERED: LORAZEPAM 2 MG TAB PO PRN (14:30)
[2017-09-16] MEDS ORDERED: AMLODIPINE BESYLATE 5 MG TAB PO ONE (14:30)
[2017-09-16] MEDS ORDERED: AMLODIPINE BESYLATE 5 MG TAB ONE (14:43)
[2017-09-16] MEDS ORDERED: IV FLUIDS COMPLETED PRN (14:45)
--- NOTE | 2017-09-16 15:09 | History and Physical ---
History & Physical Date & Time of Service: Sep 16, 2017 at 14:20 Chief Complaint: Shoulder Pain/Chest Pain Primary Care Physician: Maggie Dangelo M.D. History of Present Illness Source: patient, family, clinic records, hospital records Pt is 76 y/o F with PMH HTN, insulin dependent DM II, CKD IV, dyslipidemia, NSTEMI s/p stent RCA in 2001, diastolic dysfunction, obesity and gout presented to ER from PCP office with c/o CP. Pt states 3 days ago started with aching to back near L scapula. She states pain was intermittent. Then yesterday with L upper back pain with associated heavy sensation of mid chest "like hand pushing on my chest". Had pain again this morning and took one SL nitro with decreased pain and went to PCP. Sent from PCP office to ER. En route by EMS was given another nitro and 324mg ASA. Pt states no further chest or back discomfort. Pt reports chronic LE edema, left leg always being worse then right. States yesterday noticed increased swelling and took extra 1/2 tab of bumex and reports decreased edema today. Following with wound clinic for wound to R lower leg. Has area wrapped once a week. Denies fever/chills, diaphoresis, N/V/D/C, SOUSA , dizziness, syncope, vision changes, neck pain, SOB, orthopnea, palpitations, cough, sore throat, choking, otalgia, rhinorrhea, abdominal pain, paresthesias, weakness, urinary symptoms. 03/2017 hospitalization - transient junctional bradycardia with hyperkalemia. Toprol 12.5mg daily was d/c at that time. Past Medical/Surgical History Medical Problems: (1) Acute renal failure syndrome Status: Resolved (2) Acute renal insufficiency Status: Resolved (3) Benign hypertension Status: Chronic (4) Bradycardia Status: Resolved (5) Chronic kidney disease, stage IV (severe) Status: Chronic (6) Coronary artery disease Status: Chronic (7) Diabetes mellitus type 2 Status: Chronic (8) Dyslipidemia Status: Chronic (9) Edema of leg Status: Chronic (10) Glaucoma Status: Chronic (11) Gout Status: Chronic (12) Hyperkalemia Status: Resolved (13) Junctional bradycardia Status: Resolved (14) Lymphedema Status: Chronic (15) Morbid obesity Status: Chronic (16) Neuropathy Status: Chronic Surgical Problems: (1) History of knee replacement procedure of right knee Status: Resolved (2) Hx of heart artery stent Permanent Comment: 2001 - RCA metal stent Status: Resolved Family History Diabetes mellitus FH: CAD (coronary artery disease) Hypertension Stroke Social History Smoking Status: Never Smoker Smokeless Tobacco Use: No Alcohol Use: none Drug Use: none Marital Status: Housing status: lives alone Occupational Status: retired Immunizations History of Influenza Vaccine: Yes Influenza Vaccine Date: May 02, 2012 History of Tetanus Vaccine?: No History of Pneumococcal: Yes History of Hepatitis B Vaccine: Unknown Multi-Drug Resistant Organisms History of MDRO: No Allergies Coded Allergies: Sulfamethoxazole w/Trimethoprim (Verified Allergy, Unknown, RASH, 09/16/17) Codeine (Verified Adverse Reaction, Mild, nausea, 09/16/17) Home Medications Scheduled Allopurinol (Zyloprim), 300 MG PO QAM Aspirin Enteric Coated (Ecotrin Or Generic), 81 MG PO QAM Atorvastatin (Lipitor), 80 MG PO QAM Bumetanide (Bumetanide), 1 MG PO BID17 Gabapentin (Neurontin), 600 MG PO QAM Gabapentin (Neurontin), 900 MG PO HS Insulin Aspart (Novolog Penfill), 14 UNITS SQ QA Insulin Aspart (Novolog Penfill), 16 UNITS SQ LUNCH Insulin Aspart (Novolog Penfill), 18 UNITS SQ SUPPER Insulin Glargine (Lantus Solostar), 50 UNITS SQ QAM Insulin Glargine (Lantus Solostar), 30 UNITS SC QPM Nitroglycerin (Nitrostat), 0.4 MG UT PRN Potassium Ext Rel (Klor-Con), 60 MEQ PO BID Scheduled PRN Lorazepam (Lorazepam), 2 MG PO HS PRN for Sleep Review of Systems Constitutional: No fever, No chills, No sweats, No weight loss, No weakness, No fatigue Eyes: No worsening of vision, No eye pain, No redness, No discharge ENT: No unusual epistaxis, No nasal symptoms, No sore throat, No trouble swallowing Respiratory: No cough, No sputum, No wheezing, No shortness of breath, No dyspnea on exertion, No dyspnea at rest, No hemoptysis Cardiovascular: + chest pain (see HPI), + problem reported, No orthopnea, No PND, No claudication, No palpitations Abdomen: No pain, No nausea, No vomiting, No diarrhea, No constipation, No GI bleeding Musculoskeletal: + joint pain (chronic low back pain, denies worsening), No calf pain Genitourinary - Female: No dysuria, No urinary frequency, No urinary urgency, No urinary retention, No hematuria Neurologic: No paralysis, No weakness, No numbness/tingling, No vertigo Psychiatric: + insomnia, No depression symptoms, No anxiety Endocrine: No excessive thirst, No excessive urination Hematologic / Lymphatic: No abnormal bleeding/bruising, No clotting problems, No night sweats Integumentary: + problem reported (see HPI) Physical Exam Vital Signs Date Time Temp Pulse Resp B/P (MAP) Pulse Ox O2 Delivery O2 Flow Rate FiO2 09/16/17 13:23 67 18 199/75 93 Room Air 09/16/17 12:28 68 18 179/100 95 Room Air 09/16/17 12:26 95 Room Air 09/16/17 12:24 95 Room Air 09/16/17 12:18 36.9 82 15 174/97 95 Room Air 09/16/17 12:15 67 09/16/17 11:53 95 Room Air General Appearance: no apparent distress, + obese Head: normocephalic, atraumatic Eyes: normal inspection, PERRL, EOMI, sclerae normal ENT: hearing grossly normal, pharynx normal, + pertinent finding (mucous membranes moist) Neck: supple, no JVD, trachea midline Respiratory/Chest: chest non-tender, lungs clear, normal breath sounds, no respiratory distress, no accessory muscle use Cardiovascular: regular rate, rhythm, no murmur, normal peripheral pulses Abdomen/GI: normal bowel sounds, non tender, soft Back: + pertinent finding (healed surgical incision to mid upper back without tenderness to palpation. Left scapular region without tenderness to palpation and no noted mass.) Extremities/Musculoskelatal: no calf tenderness, normal capillary refill, non- tender (1+edema LE. RLE with wrap from wound clinic in place.) Neurologic/Psych: alert, normal mood/affect, oriented x 3 Skin: normal color, warm/dry Diagnostics Laboratory Results Results Past 24 Hours Test 09/16/17 12:00 09/16/17 12:54 Range/Units White Blood Count 5.77 4.8-10.8 K/uL Red Blood Count 4.50 4.2-5.4 M/uL Hemoglobin 14.3 12.0-16.0 g/dL Hematocrit 43.1 37-47 % Mean Corpuscular Volume 95.8 80-100 fL Mean Corpuscular Hemoglobin 31.8 25-34 pg Mean Corpuscular Hemoglobin Concent 33.2 32-36 g/dl RDW Standard Deviation 50.1 36.4-46.3 fL RDW Coefficient of Variation 14.4 11.5-14.5 % Platelet Count 167 130-400 K/uL Mean Platelet Volume 11.8 7.4-10.4 fL Prothrombin Time 10.4 9.0-12.0 SECONDS Prothromb Time International Ratio 1.0 0.9-1.1 Activated Partial Thromboplast Time 25.8 21.0-31.0 SECONDS Partial Thromboplastin Ratio 1.0 Sodium Level 137 136-145 mmol/L Potassium Level 3.5 3.5-5.1 mmol/L Chloride Level 100 98-107 mmol/L Carbon Dioxide Level 33 21-32 mmol/L Anion Gap 4.0 3-11 mmol/L Blood Urea Nitrogen 36 7-18 mg/dl Creatinine 1.31 0.60-1.20 mg/dl Est Creatinine Clear Calc Drug Dose 43.1 ml/min Estimated GFR () 46.0 Estimated GFR (Non- 39.7 BUN/Creatinine Ratio 27.6 10-20 Random Glucose 115 70-99 mg/dl Calcium Level 10.0 8.5-10.1 mg/dl Magnesium Level 1.9 1.8-2.4 mg/dl Total Bilirubin 0.5 0.2-1 mg/dl Aspartate Amino Transf (AST/SGOT) 30 15-37 U/L Alanine Aminotransferase (ALT/SGPT) 35 12-78 U/L Alkaline Phosphatase 84 45-117 U/L Total Creatine Kinase 312 26-192 U/L Creatine Kinase MB 5.3 0.5-3.6 ng/ml Creatine Kinase MB Ratio 1.7 0-3.0 Troponin I 0.017 0-0.045 ng/ml Total Protein 8.0 6.4-8.2 gm/dl Albumin 3.6 3.4-5.0 gm/dl Globulin 4.4 2.5-4.0 gm/dl Albumin/Globulin Ratio 0.8 0.9-2 Bedside Troponin I < 0.030 0-0.045 ng/ml Diagnostic Radiology CXR: IMPRESSION: Cardiomegaly with no acute cardiopulmonary abnormality. EKG 11:52 AM. EKG: NSR, rate 69, no ST elevation noted Impression Assessment and Plan CHEST PAIN/ANGINA R/O ACS. Risk factors: HTN, hyperlipidemia, DM, obesity Pt with mid sternal chest heaviness x 2 days with left scapular discomfort. Took 1 SL nitro this am with decrease chest and back discomfort. EMS gave 1 SL nitro and 324mg ASA and pt pain free. In ER nitro paste placed and continues to be pain free. EKG: NSR, no ST elevations noted. Negative troponin. Pending magnesium. CXR: cardiomegaly, no acute changes. -Monitor Vitals - Repeat EKG in am - Will trend cardiac enzymes - ECHO -Cardiology consult -continue statin -ASA -Nitro paste -continue bumex -repeat cbc, prp in am HTN BP199/75. Pt has 1 inch nitro paste on. Denies SOUSA. -continue nitro paste -Norvasc 10mg po now, per cardiology recommendations DM II HA1C in am. -continue home Lantus dose 50U in am, 30U in pm -NovoLog sliding scale per protocol CKD IV Cr: 1.3 today. (baseline 1.4). GFR: 39 today putting in CKD III stage -continue to monitor -avoid nephrotoxic agents when possible WOUND R LEG -wound nurse consult GOUT no current flare -continue allopurinol DVT PROPHYLAXIS -Heparin SQ DISPOSITION -admit tele obs -Full Code as per discussion with pt -Follows with Dr Dangelo for routine care Pt was seen with Dr Robert. See addendum ATTENDING ADDENDUM : pt seen and examined, care co ordinated with Cari Bustillo PA-C labs and images reviewed 76 yo F with past M hx of CAD , HTN , Type 2 DM , presents with angina symptom intermittently , symptom not related to exertion had mid chest heaviness , radiation to back , no SOB , no diaphoresis or syncope symptom relief with SL Nitro saw her Family physician at [facility] , was sent to ER via ambulance for unstable angina in the ER pt was chest pain free , found to be Hypertensive with SBP > 190 EKG no ischemic change troponin X1 negative P/E: : Gen : pleasant , no sign of distress HEENT: sclera non icteric , PERRLA/EOMI HT: regular s1/S2 , no JVD , + 1 bilateral lower ext edema Lungs: no wheeze or rales Abdomen : soft, non tender Ext : bilateral chronic lymphedema , + 1 edema , rt leg dressing present -due to chronic wound , follows at wound clinic Neuro: no focal deficit Last 8 Hrs Date Time Temp Pulse Resp B/P (MAP) Pulse Ox O2 Delivery O2 Flow Rate FiO2 09/16/17 15:26 36.8 66 20 170/82 (111) 97 Room Air 09/16/17 14:53 65 15 170/50 94 09/16/17 14:00 93 Room Air 09/16/17 13:23 67 18 199/75 93 Room Air 09/16/17 12:28 68 18 179/100 95 Room Air 09/16/17 12:26 95 Room Air 09/16/17 12:24 95 Room Air 09/16/17 12:18 36.9 82 15 174/97 95 Room Air 09/16/17 12:15 67 09/16/17 11:53 95 Room Air A/P: CHEST HEAVINESS /UNSTABLE ANGINA : presents typical angina symptom , with relief with SL nitro not associated with exertion hx of CAD , NSTEMI in 2001 , s/p PTCA will be admitted to Tele for further cardiac work up resting ECHO , serial troponin ordered Cardiology eval requested pt was chest pain free during my evaluation RT LOWER EXT CHRONIC INFECTION : follows with wound care center wound care consulted Please refer to Mabel Bustillo PA-c documentation for further discussion of other issues Cris Robert MD Level of Care Telemetry Resuscitation Status FULL RESUSCITATION VTE Prophylaxis VTE Risk Assessment Done? Y/N: Yes Risk Level: Moderate Given or contraindicated: Unfractionated heparin SQ Additional Copies To Maggie Dangelo M.D.
[2017-09-16 15:26] VITALS: BP 170/82; PULSE 66; TEMP 36.8; O2SAT 97
[2017-09-16 16:00] VITALS: O2SAT 97
[2017-09-16] MEDS: BUMETANIDE 1 MG TAB PO SCH (17:06)
--- NOTE | 2017-09-16 17:07 | DIAGNOSTIC IMAGING REPORT ---
BILATERAL LOWER EXTREMITY VENOUS DOPPLER HISTORY: elevated D dimer , lower extremity swelling COMPARISON STUDY: None. FINDINGS: There is normal compressibility, flow, and augmentation within the visualized bilateral lower extremity deep venous systems. Of note, the right leg calf vessels were not identified due to the patient's overlying bandage. IMPRESSION: No DVT within the visualized right or left lower extremity. Electronically signed by: Stevo Alvarez M.D. 09/16/2017 5:06 PM Dictated Date/Time: 09/16/2017 5:05 PM
[2017-09-16] MEDS: INSULIN ASPART 100 UNITS/ML 3 ML PEN SC SCH ×2 (17:08→20:27)
--- NOTE | 2017-09-16 17:15 | ECHOCARDIOGRAM REPORT ---
*NOTICE TO RECEIVING LIBERTARIAN AGENCY This information is strictly Confidential and protected under [place] law. [place] law prohibits you from making any further disclosure of this information unless further disclosure is expressly permitted by the written consent of the person to whom it pertains or is authorized by law. A general authorization for the release of medical or other information is not sufficient for this purpose. Hospital accepts no responsibility if the information is made available to any other person, INCLUDING THE PATIENT. Interpretation Summary * Name: CECILIA SILVA Study Date: 09/16/2017 03:39 PM BP: 170/50 mmHg * Patient Location: C.2T\S\E218\S\1 HR: 65 * : 1940 (M/d/yyyy) Gender: Female Height: 62 in * Age: 76 yrs Ethnicity: CA Weight: 239 lb * Ordering Physician: Cris Robert * Referring Physician: Self, Referred * Performed By: Miracle Sandoval RDCS * * Reason For Study: Chest Pain * BSA: 2.1 m2 * -- Conclusions -- * No significant change compared to previous study of 03/11/17. * Normal LV chamber size with mild concentric LVH, sigmoid appearing septum. * Normal LV systolic function, EF 60-65%. * No segmental left ventricular wall motion abnormalities are noted. * Grade I diastolic dysfunction. * Aortic valve sclerosis mild, without significant aortic valvular stenosis. Mild aortic regurgitation. * Severe MAC with mild mitral regurgitation. * Moderate left atrial enlargement. Procedure Details * A complete two-dimensional transthoracic echocardiogram was performed (2D, M-mode, Doppler and color flow Doppler). * The study was technically difficult. * The study was technically difficult, but visualization was adequate with the administration of Definity ultrasound contrast. * There were technical limitations due to patient'sbody habitus * A contrast injection of Definity was performed to improve assessment of LV function. * Contrast was injected into an intravenous site in the left arm. * One vial of Definity ultrasound contrast was diluted in normal saline to a total volume of 10 ml. A total of '2' ml of solution was administered during imaging. * Lot # [id number] of Definity utilized for procedure. * Expiration date . * The attending nurse who injected the contrast agent was Desiree Nowak RN. Left Ventricle * The left ventricle is normal in size. * There is mild concentric left ventricular hypertrophy. * The basal septum is thickened and angulated consistent with sigmoid septum. * Ejection Fraction = 60-65%. * Left ventricular systolic function is normal. * No segmental left ventricular wall motion abnormalities are noted. * The left ventricular wall motion is normal. Right Ventricle * The right ventricular cavity size is normal (basal dimension <4.2 cm in right ventricular apical 4-chamber view). * The right ventricular systolic function is normal as assessed by tricuspid annular plane systolic excursion (TAPSE) (normal >1.5 cm). Atria * The left atrium is moderately dilated. * Right atrial size is normal. * No ASD detected; PFO is not assessed. Mitral Valve * There is severe mitral annular calcification. * There is no mitral valve stenosis. * There is mild mitral regurgitation. Tricuspid Valve * The tricuspid valve is normal. Aortic Valve * The aortic valve is trileaflet. * Aortic valve sclerosis mild, without significant aortic valvular stenosis. * Mild aortic regurgitation. Pulmonic Valve * The pulmonary valve is not well seen, but the Doppler examination is normal without significant regurgitation or stenosis. Great Vessels * The aortic root is normal size. Pericardium/Pleural * There is no pericardial effusion. Left Ventricular Diastolic Function * Grade I diastolic dysfunction, (abnormal relaxation pattern). MMode 2D Measurements and Calculations IVSd 1.6 cm IVSs 2.1 cm LVIDd 4.9 cm LVIDs 3.1 cm LVPWd 1.1 cm LVPWs 1.4 cm IVS/LVPW 1.5 FS 36.7 % EDV(Teich) 111.2 ml ESV(Teich) 37.4 ml EF(Teich) 66.3 % EDV(cubed) 115.4 ml ESV(cubed) 29.3 ml EF(cubed) 74.6 % % IVS thick 27.6 % % LVPW thick 31.2 % LV mass(C)d 266.2 grams LV mass(C)dI 129.1 grams/m\S\2 LV mass(C)s 212.9 grams LV mass(C)sI 103.2 grams/m\S\2 SV(Teich) 73.7 ml SI(Teich) 35.8 ml/m\S\2 SV(cubed) 86.1 ml SI(cubed) 41.8 ml/m\S\2 Ao root diam 2.7 cm Ao root area 5.7 cm\S\2 ACS 1.9 cm LA dimension 3.4 cm LA/Ao 1.3 LVAd ap4 39.9 cm\S\2 LVLd ap4 8.5 cm EDV(MOD-sp4) 153.7 ml EDV(sp4-el) 159.0 ml LVAs ap4 22.3 cm\S\2 LVLs ap4 7.2 cm ESV(MOD-sp4) 62.4 ml ESV(sp4-el) 58.7 ml EF(MOD-sp4) 59.4 % EF(sp4-el) 63.1 % LVAd ap2 29.7 cm\S\2 LVLd ap2 7.8 cm EDV(MOD-sp2) 94.4 ml EDV(sp2-el) 96.3 ml LVAs ap2 14.9 cm\S\2 LVLs ap2 6.7 cm ESV(MOD-sp2) 32.5 ml ESV(sp2-el) 28.1 ml EF(MOD-sp2) 65.6 % EF(sp2-el) 70.8 % LVLd %diff -9.15 % EDV(MOD-bp) 126.6 ml LVLs %diff -7.31 % ESV(MOD-bp) 46.3 ml EF(MOD-bp) 63.4 % SV(MOD-sp4) 91.3 ml SI(MOD-sp4) 44.3 ml/m\S\2 SV(MOD-sp2) 61.9 ml SI(MOD-sp2) 30.0 ml/m\S\2 SV(MOD-bp) 80.3 ml SI(MOD-bp) 39.0 ml/m\S\2 SV(sp4-el) 100.4 ml SI(sp4-el) 48.7 ml/m\S\2 SV(sp2-el) 68.2 ml SI(sp2-el) 33.1 ml/m\S\2 Doppler Measurements and Calculations MV E max rox 138.0 cm/sec MV A max rox 143.4 cm/sec MV E/A 0.96 MV dec time 0.31 sec Ao V2 max 178.3 cm/sec Ao max PG 12.7 mmHg Ao max PG (full) 6.7 mmHg AI max rox 251.7 cm/sec AI max PG 25.3 mmHg AI dec slope 142.4 cm/sec\S\2 AI P1/2t 517.5 msec LV V1 max PG 6.0 mmHg LV V1 max 122.9 cm/sec PA V2 max 103.1 cm/sec PA max PG 4.3 mmHg TR max rox 256.2 cm/sec
[2017-09-16] MEDS: NITROGLYCERIN 2% OINTMENT 30GM TUBE EXT SCH ×2 (18:00→23:18)
[2017-09-16 19:36] VITALS: BP 147/78; PULSE 62; TEMP 36.6; O2SAT 93
[2017-09-16] MEDS: POTASSIUM CHLORIDE 20 MEQ TABCR PO SCH (20:24)
[2017-09-16] MEDS: GABAPENTIN 300 MG CAP PO SCH (20:25)
[2017-09-16] MEDS: INSULIN GLARGINE SC SCH (20:31)
[2017-09-16] MEDS: HEPARIN SOD 5000 UNIT/0.5 ML CARP SQ SCH (20:32)
--- NOTE | 2017-09-16 20:53 | Progress Note ---
Progress Note Date of Service Sep 16, 2017. Progress Note ATTENDING NOTE: Wound Culture on Rt leg -Staph Aureus MSSA started on IV Vancomycin ID consult requested -recommendation for appropriate PO Abx and duration of tx Wound Care consulted
[2017-09-16] MEDS ORDERED: VANCOMYCIN INJ 2,750 MG in SODIUM CHLORIDE 0.9% 500ML 500 ML IV ONE (21:00)
[2017-09-16] MEDS ORDERED: VANCOMYCIN CONSULT ACTIVE PRN ×2 (21:00)
--- NOTE | 2017-09-16 21:10 | Pharmacy Progress Note ---
Pharmacy Abx Initial Consult Date of Service Sep 16, 2017. Pharmacy Dosing Scope Date of Consult: 09/16/17 Consultation requested by: Dr. Robert Pharmacy is consulted to initiate Vancomycin IV dosing therapy, order appropriate labs and adjust drug dose/frequency. Subjective The patient is a 76 year old female admitted on Sep 16, 2017 at 13:39. Objective Height (Feet): 5 Height (Inches): 2.00 Weight (Kilograms): 108.700 Vital Signs (Past 12Hrs) Vital Signs Past 12 Hours Date Time Temp Pulse Resp B/P (MAP) Pulse Ox O2 Delivery O2 Flow Rate FiO2 09/16/17 20:05 Room Air 09/16/17 19:36 36.6 62 22 147/78 (101) 93 Room Air 09/16/17 16:00 97 Room Air 09/16/17 15:26 36.8 66 20 170/82 (111) 97 Room Air 09/16/17 14:53 65 15 170/50 94 09/16/17 14:00 93 Room Air 09/16/17 13:23 67 18 199/75 93 Room Air 09/16/17 12:28 68 18 179/100 95 Room Air 09/16/17 12:26 95 Room Air 09/16/17 12:24 95 Room Air 09/16/17 12:18 36.9 82 15 174/97 95 Room Air 09/16/17 12:15 67 09/16/17 11:53 95 Room Air Lab Results (24Hrs) Laboratory Tests (24 Hours) Test 09/16/17 12:00 Total Creatine Kinase 312 U/L (26-192) H White Blood Count 5.77 K/uL (4.8-10.8) Assessment & Plan Assessment 76 year old female initiated on Vancomycin IV for wound culture growing MSSA. ID consulted to aid in PO abx selection. Plan Vancomycin IV * Loading dose: 2750 mg (25 mg/kg) * Maintenance dose: 1750 mg IV (16 mg/kg) every 24 hours * Goal trough level for cellulitis: 15 mcg/mL * Trough level ordered for 09/18/17 @2030 prior to 2100 dose * Recommend change to Ancef IV (due to MSSA NOT MRSA) and based on likelihood of Vancomycin accumulation in obese patient/patient with h/o CKD. Pharmacy will continue to follow and will adjust dose/frequency as necessary. Thank you.
[2017-09-16 23:35] VITALS: BP 162/71; PULSE 72; TEMP 36.6; O2SAT 96
--- NOTE | 2017-09-17 01:29 | CARDIOLOGY CONSULTATION ---
DATE OF CONSULTATION: 09/16/2017 CONSULTATION REQUESTED BY: Cris Robert MD REASON FOR CONSULTATION: Chest pain. HISTORY OF PRESENT ILLNESS: Mrs. Gonzalez is a very pleasant 76-year-old woman who normally follows with Mike Lira of our cardiology practice. She presented to [facility] Emergency Department on 09/16/2017 with few days' worth of chest and back pain. The patient states that she had a very stressful time at home as of late after a nephew recently suffered a spontaneous aortic dissection, and 3 days prior to admission she developed some back pain. She described it as a dull achy sensation between her shoulder blades and just seemed to be musculoskeletal. However, she then had pain waxing and waning for the next few days until it started to radiate through to her chest. At that time, she became concerned and was seen by Family Medicine at [facility]. She was seen there, an EKG was performed which was unremarkable and she was directed to the Emergency Department. Upon presentation in the Emergency Department, again her EKG was unremarkable, but she was rather hypertensive with a peak blood pressure in the ER of 199/75. She was given sublingual nitroglycerin with resolution of the discomfort and beta blockers were avoided given her history of junctional bradycardia on low dose metoprolol. I was contacted by Dr. Robert and I recommended giving patient a dose of amlodipine for further blood pressure control. She is now on a nitropatch and received amlodipine, her blood pressure is improving and she states now she feels fine. She has not had any further discomfort. She states that this is not similar to the discomfort she had prior to her non-STEMI in the past. Otherwise, patient states that she has been in her normal state of health lately, and denies any medication changes or any other significant changes of her routine. She has been compliant with her medications. PAST SURGICAL HISTORY: 1. Knee replacement. 2. Sphincterotomy. 3. Finger amputation. 4. x3. 5. Cardiac catheterization in 2001, receiving a bare metal stent to the RCA at that time. MEDICAL ILLNESSES: 1. Coronary artery disease with a history of non-STEMI status post PCI to the RCA with residual 60% stenosis of the LAD and 50% stenosis of a large diagonal. 2. Normal LV systolic function with diastolic dysfunction. 3. Hypertension. 4. Dyslipidemia. 5. Diabetes. 6. Chronic kidney disease with recurrent episodes of significant renal failure. 7. 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 8. Gout. 9. Obesity. 10. Anemia. FAMILY HISTORY: Noncontributory. SOCIAL HISTORY: The patient denies any alcohol, tobacco or recreational drug use. She is . She has 3 daughters. ALLERGIES: 1. BACTRIM. 2. CODEINE. MEDICATIONS AN OUTPATIENT: 1. Aspirin 81 mg daily. 2. Bumex 1 mg b.i.d. 3. Potassium chloride 20 mEq b.i.d. 4. Atorvastatin 80 mg daily. 5. Lantus. 6. Neurontin. PHYSICAL EXAMINATION: VITALS: Temperature is 36.8, pulse 66, respiratory rate 12, blood pressure 170/82. GENERAL: Awake, alert, oriented x3, in no acute distress. HEENT: Normocephalic, atraumatic. Pupils equal, round, and reactive to light and accommodation. Extraocular muscles intact. Anicteric sclerae. Moist mucous membranes. NECK: No JVD, no bruit. CARDIOVASCULAR: Regular. Positive S4. Normal S1 and S2. No S3. No murmurs or rubs. PULMONARY: Clear to auscultation bilaterally. No rales, rhonchi or wheezes. EXTREMITIES: No clubbing or cyanosis. +1 bilateral lower extremity nonpitting edema with right lower extremity bandaged for a venous stasis ulcer. SKIN: Warm and dry. TEST RESULTS: Chest x-ray was read as cardiomegaly with no acute cardiopulmonary abnormality, no significant enlargement of her mediastinum. Most recent echocardiogram on February 2017 was read as moderate concentric LVH with sigmoid appearing septum, normal LV systolic function, EF 55% to 59%, moderate left atrial enlargement, severe mitral annular calcification, mild mitral regurgitation, mild aortic valve sclerosis with mild aortic regurgitation, normal size aortic root and ascending aorta. A 12-lead EKG performed in the Emergency Department independently reviewed at this time shows normal sinus rhythm at 69 beats per minute, normal axis, normal intervals, normal study. No significant change compared to previous studies. LABORATORY STUDIES OF SIGNIFICANCE: Sodium 137, potassium 3.5, BUN 36, creatinine 1.31. Troponin negative x2, CK of 312. IMPRESSION: 1. Chest pain secondary to hypertensive urgency. 2. History of coronary artery disease, status post percutaneous coronary intervention to the right coronary artery in 2001 with residual disease of the left anterior descending artery and diagonal. 3. Diastolic dysfunction with normal left ventricular systolic function. 4. Chronic renal insufficiency. 5. History of junctional bradycardia. 6. 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 RECOMMENDATIONS: It was my pleasure to see Mrs. Gonzalez in consultation today. From a cardiac standpoint, I believe patient is suffering from hypertensive urgency and given the fact that her symptoms have resolved with improvement of her blood pressure; I believe that strict blood pressure control is indicated at this point. So given her history of chronic kidney disease and recurrent decompensations of her renal function along with her history of junctional arrhythmias on beta padma, at this time she will be started on amlodipine 10 mg x1 now and we will further follow her blood pressure from there. Consideration will be given to adding nitrates and hydralazine given her renal function, and stress testing will likely be completed as an outpatient once her blood pressure is controlled. Otherwise, she will be continued on her aspirin and atorvastatin. AMANDA
[2017-09-17 03:59] VITALS: BP 137/67; PULSE 64; TEMP 36.5; O2SAT 99
[2017-09-17] MEDS: NITROGLYCERIN 2% OINTMENT 30GM TUBE EXT SCH ×3 (05:36→16:14)
[2017-09-17] MEDS: HEPARIN SOD 5000 UNIT/0.5 ML CARP SQ SCH ×3 (05:43→21:43)
[2017-09-17 07:53] VITALS: BP 172/80; PULSE 73; TEMP 36.6; O2SAT 96
[2017-09-17] MEDS: ALLOPURINOL 300 MG TAB PO SCH (07:58)
[2017-09-17] MEDS: ATORVASTATIN 40 MG TAB PO SCH (07:58)
[2017-09-17] MEDS: BUMETANIDE 1 MG TAB PO SCH ×2 (07:58→16:14)
[2017-09-17] MEDS: ASPIRIN 81 MG ECTAB PO SCH (07:58)
[2017-09-17] MEDS: GABAPENTIN 600 MG TAB PO SCH (07:58)
[2017-09-17] MEDS: POTASSIUM CHLORIDE 20 MEQ TABCR PO SCH ×2 (07:59→21:40)
[2017-09-17 08:00] LABS: HEMATOCRIT 40.6 % (37-47); HEMOGLOBIN 13.2 g/dL (12.0-16.0); MEAN CELL VOLUME 97.4 fL (80-100); MEAN CORPUSCULAR HEMOGLOBIN 31.7 pg (25-34); MEAN CORPUSCULAR HGB CONC 32.5 g/dl (32-36); MEAN PLATELET VOLUME 11.1 fL (7.4-10.4); PLATELET COUNT 148 K/uL (130-400); RED CELL DISTRIBUTION WIDTH CV 14.5 % (11.5-14.5); RED CELL DISTRIBUTION WIDTH SD 51.3 fL (36.4-46.3); WHITE BLOOD COUNT 5.98 K/uL (4.8-10.8)
[2017-09-17] MEDS: INSULIN ASPART 100 UNITS/ML 3 ML PEN SC SCH ×4 (08:05→21:00)
[2017-09-17] MEDS: INSULIN GLARGINE SQ SCH (08:06)
[2017-09-17 08:32] LABS: CREATININE 1.21 mg/dl (0.60-1.20); POTASSIUM 3.6 mmol/L (3.5-5.1)
[2017-09-17 09:00] LABS: HEMOGLOBIN A1C 6.8 % (4.5-5.6)
[2017-09-17] MEDS ORDERED: ASPIRIN 81 MG ECTAB PO SCH (09:00)
[2017-09-17] MEDS ORDERED: LISINOPRIL 5 MG TAB PO ONE (10:45)
[2017-09-17] MEDS: AMLODIPINE BESYLATE 5 MG TAB PO SCH (11:21)
[2017-09-17 11:39] VITALS: BP 146/74; PULSE 63; TEMP 36.7; O2SAT 98
--- NOTE | 2017-09-17 11:40 | Nephrology Consultation ---
Nephrology Consultation Date & Providers Date of Consultation: Sep 17, 2017. Primary Care Provider: Maggie Dangelo M.D. Referring Provider: Reason for Consultation Evaluation management for chronic kidney disease and hypertensive urgency. History of Present Illness Mrs. Anjali Gonzalez is a 76-year-old female with past medical history significant for stage 3 chronic kidney disease, hypertension, diabetes, coronary artery disease admitted to the hospital with chest pain and hypertensive urgency. Nephrologic consult was requested to manage hypertensive urgency and chronic kidney disease. Electronic medical records including labs and imaging are reviewed in detail during patient's visit. Family was at bedside during the visit. Anjali has stage 3 chronic kidney disease, baseline creatinine has been quite variable from 1.5-2.0, most likely secondary to hypertensive nephropathy, follows in the nephrology clinic with Dr. Fountain. Prior urinalysis has been benign, no history of hematuria proteinuria. She has history of lymphedema requiring high dose of diuretics as baseline, has been on potassium supplement for hypokalemia however previously had history of episodes of hyperkalemia as well. Her baseline dry weight is approximately 230 lb. Currently she is at 237 lb She was admitted to the hospital yesterday with chest pain. On admission she was found to be in hypertensive urgency, systolic blood pressure was 1 80s to 190s. EKG was unremarkable, cardiac enzymes are normal. D-dimer was elevated but Doppler of lower extremity was negative for DVT. She was evaluated by Cardiology and no intervention planned at this point and chest pain was thought to be related to hypertensive urgency. She was started on amlodipine with slight improvement in blood pressure however blood pressure still not at goal. Her chest pain seems to have resolved. Office blood pressure record review showed well controlled blood pressure at baseline. Renal function has been add baseline although continues to be variable, creatinine was 1.3 this morning. She remain non-oliguric. Electrolyte has been acceptable. Past Medical/Surgical History Medical: # Stage 3 CKD with history of recurrent episodes of acute kidney injury, baseline creatinine variable from 1.5-2.0 # Coronary artery disease with a history of non-STEMI status post cath in 2001 PCI to the RCA with residual 60% stenosis of the LAD and 50% stenosis of a large diagonal. EF 55% with diastolic dysfunction. # Hypertension, poorly-controlled # diabetes type 2 # obesity # history of gout. Allergies Coded Allergies: Sulfamethoxazole w/Trimethoprim (Verified Allergy, Unknown, RASH, 09/16/17) Codeine (Verified Adverse Reaction, Mild, nausea, 09/16/17) Inpatient Medications Current Inpatient Medications Medications (Trade) Dose Ordered Sig/Claire Route Start Time Stop Time Status Last Admin Dose Admin Heparin Sodium (Porcine) (Heparin Sq 5000 Unit/0.5ml) 5,000 unit Q8 SQ 09/16/17 22:00 10/16/17 21:59 09/17/17 05:43 5,000 UNIT Acetaminophen (Tylenol Tab) 650 mg Q4H PRN PO 09/16/17 14:00 10/16/17 13:59 09/17/17 05:36 650 MG Al Hydrox/Mg Hydrox/Simethicone (Maalox Max Susp) 15 ml Q4H PRN PO 09/16/17 14:00 10/16/17 13:59 Magnesium Hydroxide (Milk Of Magnesia Susp) 30 ml Q12H PRN PO 09/16/17 14:00 10/16/17 13:59 Ondansetron HCl (Zofran Inj) 4 mg Q6H PRN IV 09/16/17 14:00 10/16/17 13:59 Nitroglycerin (Nitrostat Tab) 0.4 mg UD PRN SL 09/16/17 14:00 10/16/17 13:59 Aspirin (Ecotrin Tab) 81 mg QAM PO 09/17/17 09:00 10/17/17 08:59 09/17/17 07:58 81 MG Polyethylene (Miralax Powder Packet) 17 gm DAILY PRN PO 09/16/17 14:00 10/16/17 13:59 Allopurinol (Zyloprim Tab) 300 mg QAM PO 09/17/17 09:00 10/17/17 08:59 09/17/17 07:58 300 MG Atorvastatin Calcium (Lipitor Tab) 80 mg QAM PO 09/17/17 09:00 10/17/17 08:59 09/17/17 07:58 80 MG Bumetanide (Bumex Tab) 1 mg BID17 PO 09/16/17 17:00 10/16/17 16:59 09/17/17 07:58 1 MG Gabapentin (Neurontin Tab) 600 mg QAM PO 09/17/17 09:00 10/17/17 08:59 09/17/17 07:58 600 MG Gabapentin (Neurontin Cap) 900 mg HS PO 09/16/17 21:00 10/16/17 20:59 09/16/17 20:25 900 MG Insulin Glargine (Lantus Vial) 30 units QPM SC 09/16/17 21:00 10/16/17 20:59 09/16/17 20:31 30 UNITS Insulin Glargine (Lantus Vial) 50 units QAM SQ 09/17/17 09:00 10/17/17 08:59 09/17/17 08:06 50 UNITS Lorazepam (Ativan Tab) 2 mg HS PRN PO 09/16/17 14:30 10/16/17 14:29 Nitroglycerin (Nitroglycerin 2% Oint) 2 inch Q6 EXT 09/16/17 18:00 10/16/17 17:59 09/17/17 05:36 2 INCH Insulin Aspart (novoLOG ASPART) SLIDING SCALE If C... ACHS SC 09/16/17 16:15 10/16/17 16:14 09/17/17 08:05 5 UNITS Glucose (Glucose 40% Gel) 15-30 GRAMS 15 GRAMS... UD PRN PO 09/16/17 14:30 10/16/17 14:29 Glucose (Glucose Chew Tab) 4-8 Tablets 4 Tabl... UD PRN PO 09/16/17 14:30 10/16/17 14:29 Dextrose (Dextrose 50% 50ML Syringe) 25-50ML OF 50% DW IV FOR... UD PRN IV 09/16/17 14:30 10/16/17 14:29 Glucagon (Glucagon Inj) 1 mg UD PRN SQ 09/16/17 14:30 10/16/17 14:29 Miscellaneous (Iv Fluids Completed) 1 ea PRN PRN N/A 09/16/17 14:45 09/16/18 14:44 Vancomycin HCl 1750 mg/Sodium Chloride 535 ml @ 200 mls/hr Q24H IV 09/17/17 21:00 09/25/17 23:41 Miscellaneous Information (Consult) 1 ea UD PRN N/A 09/16/17 21:00 10/16/17 20:59 Amlodipine Besylate (Norvasc Tab) 10 mg QAM PO 09/17/17 10:45 10/17/17 10:44 UNV Potassium Chloride (Klor-Con Tab) 20 meq BID PO 09/17/17 21:00 10/16/17 20:59 Lisinopril (Zestril Tab) 5 mg QAM PO 09/18/17 09:00 10/18/17 08:59 Family History Diabetes mellitus FH: CAD (coronary artery disease) Hypertension Stroke Social History Smoking Status: Never Smoker Smokeless Tobacco Use: No Alcohol Use: none Drug Use: none Marital Status: Housing Status: lives alone Occupation: retired Review of Systems A complete review of systems was performed. Pertinent positives are noted above. All other systems are negative. Physical Exam Date Time Temp Pulse Resp B/P (MAP) Pulse Ox O2 Delivery O2 Flow Rate FiO2 09/17/17 08:00 Room Air 09/17/17 07:53 36.6 73 19 172/80 (110) 96 Room Air 09/17/17 04:00 Room Air 09/17/17 03:59 36.5 64 20 137/67 (90) 99 Room Air 09/17/17 00:01 Room Air 09/16/17 23:35 36.6 72 18 162/71 (101) 96 Room Air 09/16/17 20:05 Room Air 09/16/17 19:36 36.6 62 22 147/78 (101) 93 Room Air 09/16/17 16:00 97 Room Air 09/16/17 15:26 36.8 66 20 170/82 (111) 97 Room Air 09/16/17 14:53 65 15 170/50 94 09/16/17 14:00 93 Room Air 09/16/17 13:23 67 18 199/75 93 Room Air 09/16/17 12:28 68 18 179/100 95 Room Air 09/16/17 12:26 95 Room Air 09/16/17 12:24 95 Room Air 09/16/17 12:18 36.9 82 15 174/97 95 Room Air 09/16/17 12:15 67 09/16/17 11:53 95 Room Air GENERAL: Elderly female, AAA x 3, pleasant, healthy-appearing, not in any distress. HEENT: Atraumatic, normocephalic. NECK: Supple, no JVD, no carotid bruit appreciated. ENT: No sinus tenderness MOUTH and THROAT: Moist oral mucosa, no oral ulcer or pharyngeal erythema RESPIRATORY: Normal breathing efforts, no accessory muscle use, clear to auscultation bilaterally, no wheezes or rales. CARDIOVASCULAR: S1, S2 normal, rate rhythm regular. ABDOMEN: Soft, nontender, positive bowel sound. MUSCULOSKELETAL: No CVA tenderness. No joint swelling, erythema or tenderness. Normal range of motion. SKIN: No skin rash EXTREMITY: No lower extremity edema NEURO: No gross focal neurological deficit, speech fluent. PSYCHIATRY: Normal mood and judgment Laboratory Results Last 24 Hours Test 09/16/17 12:00 09/16/17 12:54 09/16/17 16:28 09/16/17 19:28 White Blood Count 5.77 K/uL Red Blood Count 4.50 M/uL Hemoglobin 14.3 g/dL Hematocrit 43.1 % Mean Corpuscular Volume 95.8 fL Mean Corpuscular Hemoglobin 31.8 pg Mean Corpuscular Hemoglobin Concent 33.2 g/dl RDW Standard Deviation 50.1 fL RDW Coefficient of Variation 14.4 % Platelet Count 167 K/uL Mean Platelet Volume 11.8 fL Prothrombin Time 10.4 SECONDS Prothromb Time International Ratio 1.0 Activated Partial Thromboplast Time 25.8 SECONDS Partial Thromboplastin Ratio 1.0 D-Dimer 1120 ug/L FEU Sodium Level 137 mmol/L Potassium Level 3.5 mmol/L Chloride Level 100 mmol/L Carbon Dioxide Level 33 mmol/L Anion Gap 4.0 mmol/L Blood Urea Nitrogen 36 mg/dl Creatinine 1.31 mg/dl Est Creatinine Clear Calc Drug Dose 43.1 ml/min Estimated GFR () 46.0 Estimated GFR (Non- 39.7 BUN/Creatinine Ratio 27.6 Random Glucose 115 mg/dl Calcium Level 10.0 mg/dl Magnesium Level 1.9 mg/dl Total Bilirubin 0.5 mg/dl Aspartate Amino Transf (AST/SGOT) 30 U/L Alanine Aminotransferase (ALT/SGPT) 35 U/L Alkaline Phosphatase 84 U/L Total Creatine Kinase 312 U/L Creatine Kinase MB 5.3 ng/ml Creatine Kinase MB Ratio 1.7 Troponin I 0.017 ng/ml 0.019 ng/ml Total Protein 8.0 gm/dl Albumin 3.6 gm/dl Globulin 4.4 gm/dl Albumin/Globulin Ratio 0.8 Bedside Troponin I < 0.030 ng/ml Bedside Glucose 101 mg/dl Test 09/16/17 20:24 09/17/17 01:40 09/17/17 06:37 09/17/17 07:34 Bedside Glucose 116 mg/dl 104 mg/dl Troponin I 0.016 ng/ml 0.016 ng/ml White Blood Count 5.98 K/uL Red Blood Count 4.17 M/uL Hemoglobin 13.2 g/dL Hematocrit 40.6 % Mean Corpuscular Volume 97.4 fL Mean Corpuscular Hemoglobin 31.7 pg Mean Corpuscular Hemoglobin Concent 32.5 g/dl RDW Standard Deviation 51.3 fL RDW Coefficient of Variation 14.5 % Platelet Count 148 K/uL Mean Platelet Volume 11.1 fL Sodium Level 141 mmol/L Potassium Level 3.6 mmol/L Chloride Level 102 mmol/L Carbon Dioxide Level 33 mmol/L Anion Gap 7.0 mmol/L Blood Urea Nitrogen 32 mg/dl Creatinine 1.21 mg/dl Est Creatinine Clear Calc Drug Dose 46.3 ml/min Estimated GFR () 50.7 Estimated GFR (Non- 43.7 BUN/Creatinine Ratio 26.3 Random Glucose 86 mg/dl Estimated Average Glucose 148 mg/dl Hemoglobin A1c 6.8 % Calcium Level 10.0 mg/dl Triglycerides Level 137 mg/dl Cholesterol Level 105 mg/dl HDL Cholesterol 50 mg/dl LDL Cholesterol, Calculated 28 mg/dl VLDL Cholesterol, Calculated 27 mg/dl Cholesterol/HDL Ratio 2.1 Annette Gonzalez is a 76-year-old female with obesity, diabetes mellitus, coronary artery disease and CKD IV, admitted to the hospital 2 days ago with chest pain and hypertensive urgency. On admission systolic blood pressure was 1 80s to 190s. EKG was unremarkable, cardiac enzymes are normal. D-dimer was elevated but Doppler of lower extremity was negative for DVT. She was evaluated by Cardiology and no intervention planned at this point and chest pain was thought to be related to hypertensive urgency. She was started on amlodipine with slight improvement in blood pressure however blood pressure still not at goal. Her chest pain seems to have resolved. She has chronic lower extremity lymphedema requiring large doses of diuretics to maintain euvolemia. Recommendations --BP started to the improve, historically her blood pressure usually well controlled, expect blood pressure to continue to improve --continue on amlodipine 10 mg --currently she is above her dry weight, would continue on Bumetanide 1 mg twice a day, in for slightly net negative, she has been negative since admission --if blood pressure not at goal, suggest increasing lisinopril to 20 mg p.o. daily and titrate dose up as tolerated --renal function seems to be at baseline, electrolyte acceptable --may need to decrease potassium supplement further to avoid risk of hyperkalemia when lisinopril dose increased Will follow Thank you for allowing me to participate in your patient's care. It was a pleasure to see Anjali --
[2017-09-17 12:01] VITALS: Ht 157.5 cm; Wt 107.2 kg
[2017-09-17 15:00] VITALS: BP 136/79; PULSE 62; TEMP 36.8; O2SAT 96
[2017-09-17] MEDS ORDERED: NURSING VERBAL MED ORDER ONE (16:45)
[2017-09-17] MEDS ORDERED: NYSTATIN POWDER 15GM BTL EXT PRN (17:00)
[2017-09-17] MEDS: CEFAZOLIN IV 2,000 MG in SYRINGE 0 ML IV SCH (17:57)
--- NOTE | 2017-09-17 18:25 | Progress Note ---
Medicine Progress Note Date & Time of Visit: Sep 17, 2017 at 18:25. Subjective Patient is doing well, she states she feels great and hopes she will be able to go home soon. No complaints of CP or SOB. BP has been better controlled today. RLE wound erythema has receded and she denies any other complaints. No overnight events noted. Objective Last 8 Hrs Date Time Temp Pulse Resp B/P (MAP) Pulse Ox O2 Delivery O2 Flow Rate FiO2 09/17/17 16:00 Room Air 09/17/17 15:00 36.8 62 18 136/79 (98) 96 Room Air 09/17/17 12:00 Room Air 09/17/17 11:39 36.7 63 18 146/74 (98) 98 Room Air Physical Exam: GENERAL: Patient is in no acute distress. HEENT: No acute trauma, normocephalic, mucous membranes moist, no nasal congestion, no scleral icterus, conjunctivae clear. NECK: No stridor, trachea is midline. LUNGS: Clear to auscultation bilaterally, no wheeze, no rhonchi, breath sounds equal. HEART: Without murmurs gallops or rubs, regular rate and rhythm. ABDOMEN: Soft, nontender, bowel sounds positive, obese EXTREMITIES: No cyanosis; trace LE edema, full range of motion of all the joints without pain or difficulty, no signs for acute trauma. NEUROLOGIC: Oriented x 3, no acute motor or sensory deficits, no focal weakness. SKIN: No rash, no jaundice, no diaphoresis. RLE wound on beltran with no surrounding erythema or pain, no drainage noted Laboratory Results: Last 24 Hours Test 09/16/17 19:28 09/16/17 20:24 09/17/17 01:40 09/17/17 06:37 Troponin I 0.019 ng/ml 0.016 ng/ml Bedside Glucose 116 mg/dl 104 mg/dl Test 09/17/17 07:34 09/17/17 11:06 09/17/17 13:34 09/17/17 16:23 White Blood Count 5.98 K/uL Red Blood Count 4.17 M/uL Hemoglobin 13.2 g/dL Hematocrit 40.6 % Mean Corpuscular Volume 97.4 fL Mean Corpuscular Hemoglobin 31.7 pg Mean Corpuscular Hemoglobin Concent 32.5 g/dl RDW Standard Deviation 51.3 fL RDW Coefficient of Variation 14.5 % Platelet Count 148 K/uL Mean Platelet Volume 11.1 fL Sodium Level 141 mmol/L Potassium Level 3.6 mmol/L Chloride Level 102 mmol/L Carbon Dioxide Level 33 mmol/L Anion Gap 7.0 mmol/L Blood Urea Nitrogen 32 mg/dl Creatinine 1.21 mg/dl Est Creatinine Clear Calc Drug Dose 46.3 ml/min Estimated GFR () 50.7 Estimated GFR (Non- 43.7 BUN/Creatinine Ratio 26.3 Random Glucose 86 mg/dl Estimated Average Glucose 148 mg/dl Hemoglobin A1c 6.8 % Calcium Level 10.0 mg/dl Troponin I 0.016 ng/ml < 0.015 ng/ml Triglycerides Level 137 mg/dl Cholesterol Level 105 mg/dl HDL Cholesterol 50 mg/dl LDL Cholesterol, Calculated 28 mg/dl VLDL Cholesterol, Calculated 27 mg/dl Cholesterol/HDL Ratio 2.1 Bedside Glucose 159 mg/dl 178 mg/dl Assessment & Plan CHEST PAIN/ANGINA: -likely secondary to HTN urgency -serial CM negative -on presentation patient had mid sternal chest heaviness x 2 days with left scapular discomfort. Took 1 SL nitro with decrease chest and back discomfort. EMS gave 1 SL nitro and 324mg ASA and pt was pain free; in the ER nitro paste was placed and pt continued to be pain free. -EKG: NSR, no ST elevations noted. Negative troponin -CXR: cardiomegaly, no acute changes. -Cardiology consulted, appreciate recommendations -TTE Report: * -- Conclusions -- * No significant change compared to previous study of 03/11/17. * Normal LV chamber size with mild concentric LVH, sigmoid appearing septum. * Normal LV systolic function, EF 60-65%. * No segmental left ventricular wall motion abnormalities are noted. * Grade I diastolic dysfunction. * Aortic valve sclerosis mild, without significant aortic valvular stenosis. Mild aortic regurgitation. * Severe MAC with mild mitral regurgitation. * Moderate left atrial enlargement. -continue statin -ASA -Nitro paste stopped -continue bumex HTN URGENCY: -stopped nitro paste -on amlodipine and lisinopril DM TYPE II: controlled -HbA1C: 6.8 -continue Lantus + NovoLog correction scale per protocol CKD STAGE IV: -baseline Cr 1.4-->today is 1.2 -continue to monitor -avoid nephrotoxic agents when possible -Nephrology consulted, appreciate recs WOUND R LEG: -wound nurse consult -on empiric vanco, changed to cefazolin for MSSA GOUT: -no evidence of exacerbation -continue allopurinol Current Inpatient Medications: Current Inpatient Medications Medications (Trade) Dose Ordered Sig/Claire Route Start Time Stop Time Status Last Admin Dose Admin Heparin Sodium (Porcine) (Heparin Sq 5000 Unit/0.5ml) 5,000 unit Q8 SQ 09/16/17 22:00 10/16/17 21:59 09/17/17 16:12 5,000 UNIT Acetaminophen (Tylenol Tab) 650 mg Q4H PRN PO 09/16/17 14:00 10/16/17 13:59 09/17/17 05:36 650 MG Al Hydrox/Mg Hydrox/Simethicone (Maalox Max Susp) 15 ml Q4H PRN PO 09/16/17 14:00 10/16/17 13:59 Magnesium Hydroxide (Milk Of Magnesia Susp) 30 ml Q12H PRN PO 09/16/17 14:00 10/16/17 13:59 Ondansetron HCl (Zofran Inj) 4 mg Q6H PRN IV 09/16/17 14:00 10/16/17 13:59 Nitroglycerin (Nitrostat Tab) 0.4 mg UD PRN SL 09/16/17 14:00 10/16/17 13:59 Aspirin (Ecotrin Tab) 81 mg QAM PO 09/17/17 09:00 10/17/17 08:59 09/17/17 07:58 81 MG Polyethylene (Miralax Powder Packet) 17 gm DAILY PRN PO 09/16/17 14:00 10/16/17 13:59 Allopurinol (Zyloprim Tab) 300 mg QAM PO 09/17/17 09:00 10/17/17 08:59 09/17/17 07:58 300 MG Atorvastatin Calcium (Lipitor Tab) 80 mg QAM PO 09/17/17 09:00 10/17/17 08:59 09/17/17 07:58 80 MG Bumetanide (Bumex Tab) 1 mg BID17 PO 09/16/17 17:00 10/16/17 16:59 09/17/17 16:14 1 MG Gabapentin (Neurontin Tab) 600 mg QAM PO 09/17/17 09:00 10/17/17 08:59 09/17/17 07:58 600 MG Gabapentin (Neurontin Cap) 900 mg HS PO 09/16/17 21:00 10/16/17 20:59 09/16/17 20:25 900 MG Insulin Glargine (Lantus Vial) 30 units QPM SC 09/16/17 21:00 10/16/17 20:59 09/16/17 20:31 30 UNITS Insulin Glargine (Lantus Vial) 50 units QAM SQ 09/17/17 09:00 10/17/17 08:59 09/17/17 08:06 50 UNITS Lorazepam (Ativan Tab) 2 mg HS PRN PO 09/16/17 14:30 10/16/17 14:29 Insulin Aspart (novoLOG ASPART) SLIDING SCALE If C... ACHS SC 09/16/17 16:15 10/16/17 16:14 09/17/17 17:17 8 UNITS Glucose (Glucose 40% Gel) 15-30 GRAMS 15 GRAMS... UD PRN PO 09/16/17 14:30 10/16/17 14:29 Glucose (Glucose Chew Tab) 4-8 Tablets 4 Tabl... UD PRN PO 09/16/17 14:30 10/16/17 14:29 Dextrose (Dextrose 50% 50ML Syringe) 25-50ML OF 50% DW IV FOR... UD PRN IV 09/16/17 14:30 10/16/17 14:29 Glucagon (Glucagon Inj) 1 mg UD PRN SQ 09/16/17 14:30 10/16/17 14:29 Miscellaneous (Iv Fluids Completed) 1 ea PRN PRN N/A 09/16/17 14:45 09/16/18 14:44 Amlodipine Besylate (Norvasc Tab) 10 mg QAM PO 09/17/17 10:45 10/17/17 10:44 09/17/17 11:21 10 MG Potassium Chloride (Klor-Con Tab) 20 meq BID PO 09/17/17 21:00 10/16/17 20:59 Lisinopril (Zestril Tab) 5 mg QAM PO 09/18/17 09:00 2/27/18 08:59 Nystatin (Mycostatin Powder) 1 appln PRN PRN EXT 09/17/17 17:00 10/17/17 16:59 Cefazolin Sodium 2000 mg/Syringe 10 ml @ 2.5 mls/min Q8H IV 09/17/17 18:00 09/27/17 17:59 09/17/17 17:57 2.5 MLS/MIN
[2017-09-17 18:50] VITALS: BP 126/74; PULSE 63; TEMP 36.8; O2SAT 97
[2017-09-17] MEDS ORDERED: VANCOMYCIN INJ 1,750 MG in SODIUM CHLORIDE 0.9% 500ML 500 ML IV SCH (21:00)
[2017-09-17] MEDS: INSULIN GLARGINE SC SCH (21:41)
[2017-09-17] MEDS: GABAPENTIN 300 MG CAP PO SCH (21:41)
[2017-09-17 23:29] VITALS: BP 100/57; PULSE 64; TEMP 36.7; O2SAT 94
[2017-09-18] MEDS: CEFAZOLIN IV 2,000 MG in SYRINGE 0 ML IV SCH ×2 (02:00→09:13)
[2017-09-18 03:14] VITALS: BP 115/64; PULSE 72; TEMP 37; O2SAT 95
[2017-09-18] MEDS: HEPARIN SOD 5000 UNIT/0.5 ML CARP SQ SCH (06:43)
[2017-09-18 07:57] LABS: ALBUMIN 2.9 gm/dl (3.4-5.0); CALCIUM 9.6 mg/dl (8.5-10.1); CREATININE 1.5 mg/dl (0.60-1.20); PHOSPHORUS 3.3 mg/dl (2.5-4.9); POTASSIUM 3.9 mmol/L (3.5-5.1)
[2017-09-18 08:19] VITALS: BP 142/77; PULSE 77; TEMP 36.4; O2SAT 96
[2017-09-18] MEDS: ASPIRIN 81 MG ECTAB PO SCH (08:19)
[2017-09-18] MEDS: ALLOPURINOL 300 MG TAB PO SCH (08:19)
[2017-09-18] MEDS: ATORVASTATIN 40 MG TAB PO SCH (08:19)
[2017-09-18] MEDS: AMLODIPINE BESYLATE 5 MG TAB PO SCH (08:20)
[2017-09-18] MEDS: GABAPENTIN 600 MG TAB PO SCH (08:20)
[2017-09-18] MEDS: BUMETANIDE 1 MG TAB PO SCH (08:20)
[2017-09-18] MEDS: POTASSIUM CHLORIDE 20 MEQ TABCR PO SCH (08:20)
[2017-09-18] MEDS: INSULIN ASPART 100 UNITS/ML 3 ML PEN SC SCH ×2 (08:25→11:49)
[2017-09-18] MEDS: INSULIN GLARGINE SQ SCH (08:26)
[2017-09-18] MEDS ORDERED: LISINOPRIL 5 MG TAB PO SCH (09:00)
--- NOTE | 2017-09-18 10:16 | Nephrology Progress Note ---
Nephrology Progress Note Date of Service Sep 18, 2017. Chief Complaint Follow-up for chronic kidney disease and hypertensive urgency. Sridhar Alba was seen and examined in her room this morning. She has been otherwise feeling fine denies any headache, shortness of breath or chest pain. Denies any overnight events. Has been voiding normally. Blood pressure improve significantly and has been stable within goal. Renal function stable creatinine 1.5, electrolyte acceptable. Review of Systems A complete review of systems was performed. Pertinent positives are noted above. All other systems are negative. Vital Signs Last 8 Hrs Date Time Temp Pulse Resp B/P (MAP) Pulse Ox O2 Delivery O2 Flow Rate FiO2 09/18/17 08:19 36.4 77 20 142/77 (98) 96 Room Air 09/18/17 04:00 Room Air 09/18/17 03:14 37.0 72 19 115/64 (81) 95 Room Air Last Recorded Weight Weight (Kilograms): 107.200 Physical Exam GENERAL: Elderly female, AAA x 3, pleasant, healthy-appearing, not in any distress. NECK: Supple, no JVD. RESPIRATORY: Normal breathing efforts, no accessory muscle use, clear to auscultation bilaterally, no wheezes or rales. CARDIOVASCULAR: S1, S2 normal, rate rhythm regular. EXTREMITY: trace lower extremity edema, right leg superficial ulcer. NEURO: speech fluent. PSYCHIATRY: Normal mood and judgment Family History Diabetes mellitus FH: CAD (coronary artery disease) Hypertension Stroke Social History Smoking Status: Never smoker Smokeless Tobacco Use: No Alcohol Use: none Drug Use: none Marital Status: Housing Status: lives alone Occupation: retired Laboratory Results Past 24 Hours 09/18/17 06:57 Test 09/17/17 11:06 09/17/17 13:34 09/17/17 16:23 09/17/17 20:28 Bedside Glucose 159 mg/dl (70-90) 178 mg/dl (70-90) 146 mg/dl (70-90) Troponin I < 0.015 ng/ml (0-0.045) Test 09/18/17 06:41 09/18/17 06:57 Bedside Glucose 93 mg/dl (70-90) Anion Gap 4.0 mmol/L (3-11) Est Creatinine Clear Calc Drug Dose 37.3 ml/min Estimated GFR () 39.1 Estimated GFR (Non- 33.7 BUN/Creatinine Ratio 26.9 (10-20) Calcium Level 9.6 mg/dl (8.5-10.1) Phosphorus Level 3.3 mg/dl (2.5-4.9) Albumin 2.9 gm/dl (3.4-5.0) Allergies Coded Allergies: Sulfamethoxazole w/Trimethoprim (Verified Allergy, Unknown, RASH, 09/16/17) Codeine (Verified Adverse Reaction, Mild, nausea, 09/16/17) Medications Current Inpatient Medications Medications (Trade) Dose Ordered Sig/Claire Route Start Time Stop Time Status Last Admin Dose Admin Heparin Sodium (Porcine) (Heparin Sq 5000 Unit/0.5ml) 5,000 unit Q8 SQ 09/16/17 22:00 10/16/17 21:59 09/18/17 06:43 5,000 UNIT Acetaminophen (Tylenol Tab) 650 mg Q4H PRN PO 09/16/17 14:00 10/16/17 13:59 09/17/17 05:36 650 MG Al Hydrox/Mg Hydrox/Simethicone (Maalox Max Susp) 15 ml Q4H PRN PO 09/16/17 14:00 10/16/17 13:59 Magnesium Hydroxide (Milk Of Magnesia Susp) 30 ml Q12H PRN PO 09/16/17 14:00 10/16/17 13:59 Ondansetron HCl (Zofran Inj) 4 mg Q6H PRN IV 09/16/17 14:00 10/16/17 13:59 Nitroglycerin (Nitrostat Tab) 0.4 mg UD PRN SL 09/16/17 14:00 10/16/17 13:59 Aspirin (Ecotrin Tab) 81 mg QAM PO 09/17/17 09:00 10/17/17 08:59 09/18/17 08:19 81 MG Polyethylene (Miralax Powder Packet) 17 gm DAILY PRN PO 09/16/17 14:00 10/16/17 13:59 Allopurinol (Zyloprim Tab) 300 mg QAM PO 09/17/17 09:00 10/17/17 08:59 09/18/17 08:19 300 MG Atorvastatin Calcium (Lipitor Tab) 80 mg QAM PO 09/17/17 09:00 10/17/17 08:59 09/18/17 08:19 80 MG Bumetanide (Bumex Tab) 1 mg BID17 PO 09/16/17 17:00 10/16/17 16:59 09/18/17 08:20 1 MG Gabapentin (Neurontin Tab) 600 mg QAM PO 09/17/17 09:00 10/17/17 08:59 09/18/17 08:20 600 MG Gabapentin (Neurontin Cap) 900 mg HS PO 09/16/17 21:00 10/16/17 20:59 09/17/17 21:41 900 MG Insulin Glargine (Lantus Vial) 30 units QPM SC 09/16/17 21:00 10/16/17 20:59 09/17/17 21:41 30 UNITS Insulin Glargine (Lantus Vial) 50 units QAM SQ 09/17/17 09:00 10/17/17 08:59 09/18/17 08:26 50 UNITS Lorazepam (Ativan Tab) 2 mg HS PRN PO 09/16/17 14:30 10/16/17 14:29 09/17/17 23:22 2 MG Insulin Aspart (novoLOG ASPART) SLIDING SCALE If C... ACHS SC 09/16/17 16:15 10/16/17 16:14 09/18/17 08:25 4 UNITS Glucose (Glucose 40% Gel) 15-30 GRAMS 15 GRAMS... UD PRN PO 09/16/17 14:30 10/16/17 14:29 Glucose (Glucose Chew Tab) 4-8 Tablets 4 Tabl... UD PRN PO 09/16/17 14:30 10/16/17 14:29 Dextrose (Dextrose 50% 50ML Syringe) 25-50ML OF 50% DW IV FOR... UD PRN IV 09/16/17 14:30 10/16/17 14:29 Glucagon (Glucagon Inj) 1 mg UD PRN SQ 09/16/17 14:30 10/16/17 14:29 Miscellaneous (Iv Fluids Completed) 1 ea PRN PRN N/A 09/16/17 14:45 09/16/18 14:44 Amlodipine Besylate (Norvasc Tab) 10 mg QAM PO 09/17/17 10:45 10/17/17 10:44 09/18/17 08:20 10 MG Potassium Chloride (Klor-Con Tab) 20 meq BID PO 09/17/17 21:00 10/16/17 20:59 09/18/17 08:20 20 MEQ Lisinopril (Zestril Tab) 5 mg QAM PO 09/18/17 09:00 10/18/17 08:59 09/18/17 08:20 5 MG Nystatin (Mycostatin Powder) 1 appln PRN PRN EXT 09/17/17 17:00 10/17/17 16:59 Cefazolin Sodium 2000 mg/Syringe 10 ml @ 2.5 mls/min Q8H IV 09/17/17 18:00 09/27/17 17:59 09/18/17 09:13 2.5 MLS/MIN Impression Anjali Gonzalez is a 76-year-old female with obesity, diabetes mellitus, coronary artery disease and CKD IV, admitted to the hospital 2 days ago with chest pain and hypertensive urgency. On admission systolic blood pressure was 1 80s to 190s. EKG was unremarkable, cardiac enzymes are normal. D-dimer was elevated but Doppler of lower extremity was negative for DVT. She was evaluated by Cardiology and no intervention planned at this point and chest pain was thought to be related to hypertensive urgency. She was started on amlodipine with slight improvement in blood pressure however blood pressure still not at goal. Her chest pain seems to have resolved. She has chronic lower extremity lymphedema requiring large doses of diuretics to maintain euvolemia. Recommendations --BP improved remain, remained stable, renal function stable at baseline with is acceptable electrolyte --continue on amlodipine 10 mg and lisinopril 5 milligrams p.o. daily --continue on Bumetanide 1 mg twice a day --please schedule for outpatient Nephrology follow-up with Dr. Fountain in 1-2 weeks, renal panel prior to the visit Will sign off, okay to be discharged from nephrology standpoint --
[2017-09-18 11:41] VITALS: BP 112/70; PULSE 65; TEMP 36.7; O2SAT 96
--- NOTE | 2017-09-18 12:20 | PROGRESS NOTE ---
DATE: 09/18/2017 FOLLOWUP VISIT SUBJECTIVE: The patient is a 76-year-old female who was admitted with hypertensive urgency. Yesterday, I started lisinopril. Her potassium dosage was decreased after starting this medication. Her blood pressure has improved with a combination of lisinopril and amlodipine. She has no current complaints and would like to be discharged home. OBJECTIVE: GENERAL: She is alert and oriented, comfortably sitting in a chair. VITAL SIGNS: Blood pressure is 115/70, pulse is regular at 65. She is afebrile. HEENT: She is normocephalic. Pupils are equal and reactive to light. Extraocular muscles are intact bilaterally. NECK: The neck veins are flat. Carotids have good upstrokes bilaterally without bruits. Thyroid is nonpalpable. RESPIRATORY: Breath sounds equal bilaterally and clear to auscultation. CARDIOVASCULAR: Heart has a regular rhythm. Normal S1, S2. No S3, S4. No cardiac rubs or murmurs. GASTROINTESTINAL: Abdomen is soft, nontender without organomegaly. EXTREMITIES: Free of edema, digit clubbing, or cyanosis. NEUROLOGIC: Grossly intact. SKIN: Warm to touch. LYMPH NODES: Negative to palpation. LABORATORY DATA: Potassium is 3.9, creatinine is 1.5. IMPRESSION: 1. Hypertensive urgency. 2. Chronic renal insufficiency. 3. Stable coronary artery disease. RECOMMENDATIONS: Currently, I believe the patient is stable. I believe the patient may be discharged with an outpatient followup. She should have a followup appointment with her senior director finance.
--- NOTE | 2017-09-18 13:05 | PROGRESS NOTE ---
DATE: 09/17/2017 FOLLOWUP VISIT SUBJECTIVE: The patient is a 76-year-old female with a history of ischemic heart disease and prior coronary intervention in 2001. She also has a history of diabetes with chronic renal insufficiency and diastolic dysfunction. The patient presented with upper back discomfort and chest pain, which were felt to be due to hypertensive urgency. There has been reluctance in the part of the medicine people to use certain antihypertensive medications due to the patient's history of renal insufficiency, bradycardia and abnormalities with the patient's potassium. Her only complaint today is that of a mild headache from the nitro paste. OBJECTIVE: VITAL SIGNS: Blood pressure is 170/80 and pulse is regular at 73. She is afebrile. GENERAL: She is alert and oriented in no acute distress. HEENT: She is normocephalic. Pupils are equal and reactive to light. Extraocular muscles are intact bilaterally. NECK: The neck veins are flat. Carotids have good upstrokes bilaterally without bruits. Thyroid is nonpalpable. RESPIRATORY: Breath sounds equal bilaterally and clear to auscultation. CARDIOVASCULAR: Heart has a regular rhythm. Normal S1 and S2. No S3 or S4. No cardiac rubs or murmurs. GASTROINTESTINAL: Abdomen is soft and nontender without organomegaly. EXTREMITIES: Free of edema, digit clubbing, or cyanosis. NEUROLOGIC: Grossly intact. SKIN: Warm to touch. LYMPH NODES: Negative to palpation. LABORATORY DATA: Creatinine on admission is 1.31. Today, the creatinine is 1.21. Potassium is 3.6. Cardiac markers are negative. IMPRESSION: 1. Chest and back pain, which may be due to hypertensive urgency. 2. Chronic renal insufficiency. 3. History of hypokalemia and hyperkalemia. RECOMMENDATIONS: The patient has had stable renal function and given her history of diabetes, I think she would benefit from an ELIZABETH inhibitor. I did discuss with her her potassium issues. She is currently on potassium 60 mg twice daily along with her Bumex diuretic. Her history of both hyperkalemia and hypokalemia is somewhat disjointed. She states that she has never been on an ELIZABETH inhibitor or ARB. I named several and she did not remember being on these medications. I think it is best to treat her blood pressure with either an ELIZABETH inhibitor or ARB. I will start with a low dose of lisinopril. I have reduced her potassium from 60 mg twice daily to 20 mg twice daily. She should have additional lab work each morning. I will also ask for laser printing operator, Dr. Fountain to see her to help us manage her hypertension with her kidney failure and potassium problems. MTDD
[2017-09-18] MEDS ORDERED: NYSP EXT (13:59)
[2017-09-18] MEDS ORDERED: NRV5 PO (13:59)
[2017-09-18] MEDS ORDERED: MCRK20 PO (13:59)
[2017-09-18] MEDS ORDERED: LSN5 PO (13:59)
--- NOTE | 2017-09-18 14:09 | Discharge Instructions ---
Discharge Instructions Date of Service Sep 18, 2017. Admission Reason for Admission: Angina Pectoris, Chest Pain Discharge Discharge Diagnosis / Problem: Chest pain, hypertensive urgency Discharge Goals Goal(s): Therapeutic intervention Activity Recommendations Activity Limitations: resume your previous activity Please avoid rapid changes in position. Allow yourself time to adapt when moving from laying to sitting position, or sitting to standing position. Take frequent breaks and rest when needed. Break activities into smaller tasks when able. . Instructions / Follow-Up Instructions / Follow-Up Please see Dr. Dangelo on September 20Tuesday at 11:45 AM for hospital follow up Current Hospital Diet Patient's current hospital diet: AHA Diet (Heart Healthy), Diabetes Type 2 Diet Discharge Diet Recommended Diet: AHA Diet (Heart Healthy), Diabetes Type 2 Diet Pending Studies Studies pending at discharge: no Laboratory Results Hemoglobin A1c Test 09/17/17 07:34 Range/Units Estimated Average Glucose 148 mg/dl Hemoglobin A1c 6.8 H 4.5-5.6 % Lipid Panel Test 09/17/17 07:34 Range/Units Triglycerides Level 137 0-150 mg/dl Cholesterol Level 105 0-200 mg/dl HDL Cholesterol 50 mg/dl Cholesterol/HDL Ratio 2.1 LDL Cholesterol, Calculated 28 mg/dl Medical Emergencies . Who to Call and When: Medical Emergencies: If at any time you feel your situation is an emergency, please call 911 immediately. . Non-Emergent Contact Non-Emergency issues call your: Primary Care Provider . . "Provider Documentation" section prepared by Belinda Elliott. . VTE Core Measure Inpt VTE Proph given/why not?: Unfractionated heparin SQ
--- NOTE | 2017-09-18 14:13 | Discharge Summary ---
Discharge Summary Date of Service Sep 18, 2017. Discharge Summary Admission Date: Sep 16, 2017 at 13:39 Discharge Date: Sep 18, 2017 Discharge Disposition: Home with services Principal Diagnosis: HTN urgency, Chest pain Pending Studies/Follow-Up: Repeat a BMP to check lytes and renal function at follow up, Outpatient Cardiology follow up for stress test Medication Reconciliation New Medications: Amlodipine Besylate (Amlodipine Besylate) 5 Mg Tab 10 MG PO QAM, #30 TAB Lisinopril (Lisinopril) 5 Mg Tab 5 MG PO QAM, #30 TAB Nystatin (Nystop) 45 Appln/15 Gm Powd 1 APPLN EXT PRN PRN for EXCORIATION, #1 BTL Potassium Chloride (Klor-Con M20) 20 Meq Tabcr 20 MEQ PO BID, #1 TABS Continued Medications: Allopurinol (Zyloprim) 300 Mg Tab 300 MG PO QAM, TAB Aspirin Enteric Coated (Ecotrin Or Generic) 81 Mg Tab 81 MG PO QAM, TAB Atorvastatin (Lipitor) 80 Mg Tab 80 MG PO QAM, TAB Bumetanide (Bumetanide) 1 Mg Tab 1 MG PO BID17 for 30 Days, #60 TAB 1 Refill Gabapentin (Neurontin) 300 Mg Cap 600 MG PO QAM, CAP Gabapentin (Neurontin) 300 Mg Cap 900 MG PO HS Insulin Aspart (Novolog Penfill) 100 Unit/Ml Inj 14 UNITS SQ QA Insulin Aspart (Novolog Penfill) 100 Unit/Ml Inj 16 UNITS SQ LUNCH Insulin Aspart (Novolog Penfill) 100 Unit/Ml Inj 18 UNITS SQ SUPPER Insulin Glargine (Lantus Solostar) 100 Unit/Ml Inj 50 UNITS SQ QAM, #30 Insulin Glargine (Lantus Solostar) 100 Unit/Ml Inj 30 UNITS SC QPM Lorazepam (Lorazepam) 2 Mg Tab 2 MG PO HS PRN for Sleep Nitroglycerin (Nitrostat) 0.4 Mg Tab 0.4 MG UT PRN, TAB Discontinued Medications: Potassium Ext Rel (Klor-Con) 20 Meq Tabcr 60 MEQ PO BID Admission Information HPI (per Admitting provider): Pt is 76 y/o F with PMH HTN, insulin dependent DM II, CKD IV, dyslipidemia, NSTEMI s/p stent RCA in 2001, diastolic dysfunction, obesity and gout presented to ER from PCP office with c/o CP. Pt states 3 days ago started with aching to back near L scapula. She states pain was intermittent. Then yesterday with L upper back pain with associated heavy sensation of mid chest "like hand pushing on my chest". Had pain again this morning and took one SL nitro with decreased pain and went to PCP. Sent from PCP office to ER. En route by EMS was given another nitro and 324mg ASA. Pt states no further chest or back discomfort. Pt reports chronic LE edema, left leg always being worse then right. States yesterday noticed increased swelling and took extra 1/2 tab of bumex and reports decreased edema today. Following with wound clinic for wound to R lower leg. Has area wrapped once a week. Denies fever/chills, diaphoresis, N/V/D/C, SOUSA , dizziness, syncope, vision changes, neck pain, SOB, orthopnea, palpitations, cough, sore throat, choking, otalgia, rhinorrhea, abdominal pain, paresthesias, weakness, urinary symptoms. 03/2017 hospitalization - transient junctional bradycardia with hyperkalemia. Toprol 12.5mg daily was d/c at that time. Physical Exam (per Admitting): General Appearance: no apparent distress, + obese Head: normocephalic, atraumatic Eyes: normal inspection, PERRL, EOMI, sclerae normal ENT: hearing grossly normal, pharynx normal, + pertinent finding (mucous membranes moist) Neck: supple, no JVD, trachea midline Respiratory/Chest: chest non-tender, lungs clear, normal breath sounds, no respiratory distress, no accessory muscle use Cardiovascular: regular rate, rhythm, no murmur, normal peripheral pulses Abdomen/GI: normal bowel sounds, non tender, soft Back: + pertinent finding (healed surgical incision to mid upper back without tenderness to palpation. Left scapular region without tenderness to palpation and no noted mass.) Extremities/Musculoskelatal: no calf tenderness, normal capillary refill, non-tender (1+edema LE. RLE with wrap from wound clinic in place.) Neurologic/Psych: alert, normal mood/affect, oriented x 3 Skin: normal color, warm/dry Hospital Course CHEST PAIN/ANGINA: -likely secondary to HTN urgency -serial CM negative -on presentation patient had mid sternal chest heaviness x 2 days with left scapular discomfort. Took 1 SL nitro with decrease chest and back discomfort. EMS gave 1 SL nitro and 324mg ASA and pt was pain free; in the ER nitro paste was placed and pt continued to be pain free. -EKG: NSR, no ST elevations noted. Negative troponin -CXR: cardiomegaly, no acute changes. -Cardiology consulted, appreciate recommendations -TTE Report: * -- Conclusions -- * No significant change compared to previous study of 03/11/17. * Normal LV chamber size with mild concentric LVH, sigmoid appearing septum. * Normal LV systolic function, EF 60-65%. * No segmental left ventricular wall motion abnormalities are noted. * Grade I diastolic dysfunction. * Aortic valve sclerosis mild, without significant aortic valvular stenosis. Mild aortic regurgitation. * Severe MAC with mild mitral regurgitation. * Moderate left atrial enlargement. -continue statin -ASA -Nitro paste stopped -continue bumex HTN URGENCY: -stopped nitro paste -on amlodipine and lisinopril DM TYPE II: controlled -HbA1C: 6.8 -continue Lantus + NovoLog correction scale per protocol CKD STAGE IV: -baseline Cr 1.4-->1.2-->1.4 today -continue to monitor -avoid nephrotoxic agents when possible -Nephrology consulted, appreciate recs WOUND R LEG: -wound nurse consult -on empiric vanco, changed to cefazolin for MSSA GOUT: -no evidence of exacerbation -continue allopurinol PHYSICAL EXAM: GENERAL: Patient is in no acute distress. HEENT: No acute trauma, normocephalic, mucous membranes moist, no nasal congestion, no scleral icterus, conjunctivae clear. NECK: No stridor, trachea is midline. LUNGS: Clear to auscultation bilaterally, no wheeze, no rhonchi, breath sounds equal. HEART: Without murmurs gallops or rubs, regular rate and rhythm. ABDOMEN: Soft, nontender, bowel sounds positive, obese EXTREMITIES: No cyanosis; trace LE edema, full range of motion of all the joints without pain or difficulty, no signs for acute trauma. NEUROLOGIC: Oriented x 3, no acute motor or sensory deficits, no focal weakness. SKIN: No rash, no jaundice, no diaphoresis. RLE wound on beltran dry with scabbed lesion, no surrounding erythema, pain, or drainage noted Total time spent on discharge = 37 This includes examination of the patient, discharge planning, medication reconciliation, and communication with other providers. Discharge Instructions 09/18/17 06:57 Test 09/18/17 06:57 09/18/17 10:59 Anion Gap 4.0 mmol/L (3-11) Est Creatinine Clear Calc Drug Dose 37.3 ml/min Estimated GFR () 39.1 Estimated GFR (Non- 33.7 BUN/Creatinine Ratio 26.9 (10-20) Calcium Level 9.6 mg/dl (8.5-10.1) Phosphorus Level 3.3 mg/dl (2.5-4.9) Albumin 2.9 gm/dl (3.4-5.0) Bedside Glucose 113 mg/dl (70-90)
[2017-09-18 14:31] VITALS: BP 112/70; PULSE 65; TEMP 36.7; O2SAT 96
[2017-09-18] MEDS ORDERED: VANCOMYCIN TROUGH SCH (20:30)
== END 2017-09-18 14:59 | disposition home or self-care (01) ==
LOC: EDBD 11:37 → C.EDB 11:38 → C.2T 13:39 → ENRESERV 13:48
PROVIDERS: ADMIT Hospitalist; ATTEND Internal Medicine
DX: I12.9 Hypertensive chronic kidney disease with stage 1 through stage 4 chronic kidney disease, or unspecified chronic kidney disease (principal); R07.9 Chest pain, unspecified; N18.4 Chronic kidney disease, stage 4 (severe); E11.22 Type 2 diabetes mellitus with diabetic chronic kidney disease; E78.5 Hyperlipidemia, unspecified; I25.10 Atherosclerotic heart disease of native coronary artery without angina pectoris; M10.9 Gout, unspecified; E66.01 Morbid (severe) obesity due to excess calories; Z96.651 Presence of right artificial knee joint; Z79.82 Long term (current) use of aspirin; Z79.4 Long term (current) use of insulin; Z79.899 Other long term (current) drug therapy; Z98.890 Other specified postprocedural states; Z88.2 Allergy status to sulfonamides; Z88.5 Allergy status to narcotic agent; Z83.3 Family history of diabetes mellitus; Z82.49 Family history of ischemic heart disease and other diseases of the circulatory system; Z82.3 Family history of stroke

== ENCOUNTER → 2017-09-29 | Outpatient (CLI) | payer OTHER ==
[~2017-09-29] MED LIST changes: +LSN5 PO; +MCRK20 PO; +NRV5 PO; -NYSCR30 TOP; +NYSP EXT; -OXYC-57 PO; -POTA20TA16 PO
[2017-09-29 17:24] LABS: ALBUMIN 3.1 gm/dl (3.4-5.0); BLOOD UREA NITROGEN 52 mg/dl (7-18); CALCIUM 9.9 mg/dl (8.5-10.1); CARBON DIOXIDE 30 mmol/L (21-32); CREATININE 1.84 mg/dl (0.60-1.20); GLUCOSE 113 mg/dl (70-99); PHOSPHORUS 3.5 mg/dl (2.5-4.9); POTASSIUM 4.5 mmol/L (3.5-5.1); SODIUM 139 mmol/L (136-145)
== END | disposition home or self-care (01) ==
LOC: C.LAB1850 15:42
PROVIDERS: ATTEND Internal Medicine Nephrology
DX: I12.9 Hypertensive chronic kidney disease with stage 1 through stage 4 chronic kidney disease, or unspecified chronic kidney disease (principal); N18.3 Chronic kidney disease, stage 3 (moderate); R60.9 Edema, unspecified; E55.9 Vitamin D deficiency, unspecified; E87.6 Hypokalemia

== ENCOUNTER 2017-11-27 12:41 | Inpatient (IN) | payer OTHER ==
[~2017-11-27] VITALS: Ht 157.5 cm; Wt 116.0 kg
[2017-11-27] MEDS ORDERED: SODIUM CHLORIDE 0.9% 1000ML 500 ML IV STA (13:18)
--- NOTE | 2017-11-27 13:20 | EMERGENCY ROOM VISIT NOTE ---
History Report prepared by Kekeibe: Nadege Cage Under the Supervision of: Dr. William Coburn M.D. First contact with patient: 13:11 Chief Complaint: ABDOMINAL PAIN Stated Complaint: ABDOMINAL DISCOMFORT,SOB,GURGLING Nursing Triage Summary: pt to the ED with c/o upper and pain intermittantly for several days and now feels worse and makes her SOB no n/v/d has taken 3.5 fluid pills and has not voided History of Present Illness The patient is a 77 year old female who presents to the Emergency Room with complaints of intermittent upper abdominal pain for the past several days. She rates her discomfort as a 7/10 in severity and states her abdomen feels bloated and like "it could just blow up". Over the past 3 days, the pain has been constant. She admits to some shortness of breath from the abdominal bloating. She denies any nausea, vomiting or diarrhea. She has not urinated since yesterday but states she has not felt the need to urinate. She does take daily diuretics, 2 pills in the morning, 1.5 pills at night. She believes she has been eating and drinking normally. She has experienced no GERD type symptoms. She still has her gallbladder and appendix. She denies any history of diverticulitis. She has no history of COPD or emphysema. She has been afebrile. The patient denies any recent sick contacts. She notes she was here in the hospital in August of 2017 for pneumonia and has been battling "cold symptoms" for the past 1 month. She is diabetic and states her BSG was 202 this morning when checked at home. She notes she is currently on antibiotics for a wound on one leg that is being [facility]. Source of History: patient Onset: 3 days [employer] Position: abdomen Symptom Intensity: 7/10 Timing: constant Associated Symptoms: + SOB, No fevers, No nausea, No vomiting, No diarrhea, No urinary symptoms Review of Systems See HPI for pertinent positives & negatives. A total of 10 systems reviewed and were otherwise negative. 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 (16) Lymphedema (17) Morbid obesity (18) Neuropathy Surgical Problems: (1) History of section (2) History of knee replacement procedure of right knee (3) Hx of heart artery stent Family History Diabetes mellitus FH: CAD (coronary artery disease) Hypertension Stroke Social History Smoking Status: Never Smoker Drug Use: none Marital Status: Housing Status: lives with family Occupation Status: retired Current/Historical Medications Scheduled Allopurinol (Zyloprim), 300 MG PO QAM Amlodipine Besylate (Norvasc), 5 MG PO DAILY Aspirin Enteric Coated (Ecotrin Or Generic), 81 MG PO QAM Atorvastatin (Lipitor), 80 MG PO QAM Bumetanide (Bumex), 1.5 TAB PO QAM Bumetanide (Bumex), 1 TAB PO HS Gabapentin (Neurontin), 600 MG PO QAM Gabapentin (Neurontin), 900 MG PO HS Insulin Aspart (Novolog Penfill), 14 UNITS SQ QA Insulin Aspart (Novolog Penfill), 16 UNITS SQ LUNCH Insulin Aspart (Novolog Penfill), 18 UNITS SQ SUPPER Insulin Glargine (Lantus Solostar), 50 UNITS SQ QAM Insulin Glargine (Lantus Solostar), 30 UNITS SC QPM Lisinopril (Lisinopril), 5 MG PO QAM Nitroglycerin (Nitrostat), 0.4 MG UT PRN Potassium Chloride (Klor-Con M20), 20 MEQ PO BID Scheduled PRN Lorazepam (Lorazepam), 2 MG PO HS PRN for Sleep Nystatin (Nystop), 1 APPLN EXT PRN PRN for EXCORIATION Allergies Coded Allergies: Sulfamethoxazole w/Trimethoprim (Verified Allergy, Unknown, RASH, 11/27/17) Codeine (Verified Adverse Reaction, Mild, nausea, 11/27/17) Physical Exam Vital Signs Date Time Temp Pulse Resp B/P (MAP) Pulse Ox O2 Delivery O2 Flow Rate FiO2 11/27/17 17:11 43 16 11/27/17 16:41 44 20 11/27/17 16:14 44 20 103/92 96 Room Air 11/27/17 16:13 103/92 11/27/17 16:11 46 13 11/27/17 15:54 98 Room Air 11/27/17 15:41 47 19 11/27/17 14:41 44 13 95 11/27/17 14:35 51 11/27/17 14:31 115/61 11/27/17 14:30 50 20 115/61 98 Room Air 11/27/17 14:14 113/54 11/27/17 12:44 36.3 56 20 102/57 98 Physical Exam GENERAL: Patient is in no acute distress. HEENT: No acute trauma, normocephalic atraumatic, mucous membranes are dry, no nasal congestion, no scleral icterus. NECK: No stridor, no adenopathy, no meningismus, trachea is midline. LUNGS: Clear to auscultation bilaterally, no wheeze, no rhonchi, breath sounds equal. HEART: Regular rate with a regular rhythm, no murmurs. ABDOMEN: Soft, mildly tender in the epigastrium, bowel sounds positive, no hernias, no peritonitis. EXTREMITIES: No cyanosis, mild bilateral pedal edema, full range of motion of all the joints without pain or difficulty, no signs for acute trauma. NEUROLOGIC: Oriented x 3, no acute motor or sensory deficits, no focal weakness. SKIN: No rash, no jaundice, no diaphoresis. Medical Decision & Procedures ER Provider Diagnostic Interpretation: Radiology results as stated below per my review and radiologist interpretation: CHEST ONE VIEW PORTABLE CLINICAL HISTORY: Pain radiating to the abdomen. COMPARISON STUDY: 09/16/2017 FINDINGS: The heart is borderline enlarged. There is mild interstitial prominence. An element of mild pulmonary vascular congestion cannot be excluded. There is no focal pulmonary consolidation. There are no pleural effusions. There is no free intraperitoneal air. IMPRESSION: 1. No evidence of free intraperitoneal air 2. No evidence of focal pulmonary consolidation 3. Mild nonspecific interstitial prominence Electronically signed by: Darrin Black M.D. 11/27/2017 1:[address] SCAN OF THE ABDOMEN AND PELVIS WITHOUT CONTRAST CLINICAL HISTORY: Abdominal plain and bloating COMPARISON STUDY: 02/18/2006 TECHNIQUE: CT scan of the abdomen and pelvis was performed from the lung bases to the proximal femurs. Images are reviewed in the axial, sagittal, and coronal planes. IV contrast was not administered for this examination. A dose lowering technique was utilized adhering to the principles of ALARA. CT DOSE: 1453.35 mGy.cm FINDINGS: Lower chest: There is mitral valve annulus calcification. There are coronary artery calcifications. There is no pericardial effusion. There are dependent atelectatic changes. Liver: No focal hepatic masses are visualized. The liver is mildly enlarged. The liver has a slightly nodular serosal surface. Gallbladder: No calculi are visualized. There is mild pericholecystic/periduodenal edema. Clinical correlation regards to cholecystitis is recommended. If desired a nuclear medicine hepatobiliary scan could be obtained to assess cystic duct patency. Spleen: Normal in size and attenuation. Pancreas: Unremarkable. Adrenal glands: Unremarkable. Kidneys: Bilateral calcifications are likely vascular. There is no hydronephrosis. No ureteral or bladder calculi are visualized. Bowel: There are no transition zones to indicate bowel obstruction. There is no acute diverticulitis. There are no findings to indicate acute appendicitis. The appendix is however not visualized with certainty. There is mild periduodenal edema. Peritoneum: There is no intraperitoneal free air or abdominal ascites. Vasculature: The abdominal aorta is normal in course and caliber. Adenopathy: There are mildly prominent lymph nodes at the level elina hepatis and SMA, likely reactive. Pelvic viscera: The bladder, and pelvic viscera are unremarkable. Skeletal structures: No destructive osseous lesions are seen. IMPRESSION: 1. No evidence of bowel obstruction. No evidence of free air 2. Mild pericholecystic/duodenal edema. Clinical correlation in regards to acute cholecystitis or duodenitis is recommended. Biliary ultrasonography might be considered in follow-up. Alternatively a nuclear medicine hepatobiliary scan could be obtained to assess cystic duct patency. Electronically signed by: Darrin Black M.D. 11/27/2017 3:16 PM Laboratory Results 11/27/17 13:35 Red Blood Count 3.72, Mean Corpuscular Volume 96.8, Mean Corpuscular Hemoglobin 32.0, Mean Corpuscular Hemoglobin Concent 33.1, Mean Platelet Volume 11.8, Neutrophils (%) (Auto) 73.3, Lymphocytes (%) (Auto) 17.5, Monocytes (%) (Auto) 7.3, Eosinophils (%) (Auto) 1.5, Basophils (%) (Auto) 0.3, Neutrophils # (Auto) 5.22, Lymphocytes # (Auto) 1.25, Monocytes # (Auto) 0.52, Eosinophils # (Auto) 0.11, Basophils # (Auto) 0.02 11/27/17 13:35 11/27/17 14:55 Test 11/27/17 13:35 11/27/17 14:33 11/27/17 14:55 11/27/17 15:38 White Blood Count 7.13 K/uL (4.8-10.8) Red Blood Count 3.72 M/uL (4.2-5.4) Hemoglobin 11.9 g/dL (12.0-16.0) Hematocrit 36.0 % (37-47) Mean Corpuscular Volume 96.8 fL (80-100) Mean Corpuscular Hemoglobin 32.0 pg (25-34) Mean Corpuscular Hemoglobin Concent 33.1 g/dl (32-36) Platelet Count 145 K/uL (130-400) Mean Platelet Volume 11.8 fL (7.4-10.4) Neutrophils (%) (Auto) 73.3 % Lymphocytes (%) (Auto) 17.5 % Monocytes (%) (Auto) 7.3 % Eosinophils (%) (Auto) 1.5 % Basophils (%) (Auto) 0.3 % Neutrophils # (Auto) 5.22 K/uL (1.4-6.5) Lymphocytes # (Auto) 1.25 K/uL (1.2-3.4) Monocytes # (Auto) 0.52 K/uL (0.11-0.59) Eosinophils # (Auto) 0.11 K/uL (0-0.5) Basophils # (Auto) 0.02 K/uL (0-0.2) RDW Standard Deviation 52.5 fL (36.4-46.3) RDW Coefficient of Variation 15.0 % (11.5-14.5) Immature Granulocyte % (Auto) 0.1 % Immature Granulocyte # (Auto) 0.01 K/uL (0.00-0.02) Est Creatinine Clear Calc Drug Dose 14.0 ml/min Estimated GFR () 11.3 Estimated GFR (Non- 9.8 BUN/Creatinine Ratio 26.5 (10-20) Calcium Level 9.2 mg/dl (8.5-10.1) Total Bilirubin 0.4 mg/dl (0.2-1) Alanine Aminotransferase (ALT/SGPT) 23 U/L (12-78) Alkaline Phosphatase 54 U/L (45-117) Troponin I 0.020 ng/ml (0-0.045) Total Protein 7.2 gm/dl (6.4-8.2) Albumin 3.1 gm/dl (3.4-5.0) Globulin 4.1 gm/dl (2.5-4.0) Albumin/Globulin Ratio 0.8 (0.9-2) Lipase 87 U/L (73-393) Thyroid Stimulating Hormone (TSH) 1.920 uIu/ml (0.300-4.500) Urine Color DK YELLOW Urine Appearance CLOUDY (CLEAR) Urine pH 5.0 (4.5-7.5) Urine Specific [place] 1.023 (1.000-1.030) Urine Protein TRACE (NEG) Urine Glucose (UA) NEG (NEG) Urine Ketones TRACE (NEG) Urine Occult Blood NEG (NEG) Urine Nitrite NEG (NEG) Urine Bilirubin NEG (NEG) Urine Urobilinogen NEG (NEG) Urine Leukocyte Esterase TRACE (NEG) Urine WBC (Auto) 1-5 /hpf (0-5) Urine RBC (Auto) 5-10 /hpf (0-4) Urine Hyaline Casts (Auto) >30 /lpf (0-5) Urine Epithelial Cells (Auto) 20-30 /lpf (0-5) Urine Bacteria (Auto) NEG (NEG) Urine Pathogenic Casts 1-5 GRANULAR CASTS /lpf (0) Magnesium Level 2.4 mg/dl (1.8-2.4) Aspartate Amino Transf (AST/SGOT) 14 U/L (15-37) Bedside Hemoglobin 12.2 g/dl (12.0-16.0) Bedside Hematocrit 36 % (37-47) Bedside Sodium 133 mEq/L (135-144) Bedside Potassium 4.9 mEq/L (3.3-5.0) Bedside Chloride 96 mEq/L (101-112) Bedside Total CO2 26 mEq/l (24-31) Anion Gap 17.0 mmol/L (16-25) Bedside Blood Urea Nitrogen 120 mg/dl (7-18) Bedside Creatinine 4.1 mg/dl (0.6-1.3) Bedside Glucose (other) 163 mg/dl (70-99) Bedside Ionized Calcium ([place]) 1.22 mmol/l (1.12-1.32) Laboratory results reviewed by me. Medications Administered Medications (Trade) Dose Ordered Sig/Claire Route Start Time Stop Time Status Last Admin Dose Admin Sodium Chloride 500 ml @ 999 mls/hr Q31M STAT IV 11/27/17 13:18 11/27/17 13:48 DC 11/27/17 13:18 999 MLS/HR Sodium Chloride 1,000 ml @ 999 mls/hr Q1H1M STAT IV 11/27/17 14:30 11/27/17 15:30 DC 11/27/17 16:13 999 MLS/HR Sodium Polystyrene Sulfonate (Kayexalate Susp) 15 gm NOW STAT PO 11/27/17 16:17 11/27/17 16:20 DC 11/27/17 16:37 15 GM ECG Per My Interpretation Indication: abdominal pain Rate (beats per minute): 46 Rhythm: junctional Findings: no ectopy, other (no ST elevation, no PVC's) Change: Patient's electrocardiogram interpreted by me. ED Course 1312: The patient was evaluated in room C11. A complete history and physical exam was performed. 1318: NSS 500 ml @ 999 mls/hr IV. 1430: NSS 1000 ml @ 999 mls/hr IV. 1535: I reevaluated the patient. She is resting comfortably. I discussed her results and my recommendation she remain in the hospital for further evaluation and management and she verbalized complete understanding and agreement. 1546: I discussed the patients case with Dr. Herrera, [facility] Hospitalist. The patient will be further evaluated. Medical Decision The differential diagnoses considered include bowel obstruction, gastritis, ulcer, biliary colic, acute cholecystitis, pancreatitis, UTI, dehydration, diverticulitis and hernia. There is no leukocytosis or concerning anemia. Renal panel testing shows some hyponatremia and acute renal failure with a creatinine of over 4. No hepatitis or pancreatitis. The patient appears to be in a euthyroid state. Urinalysis shows some contamination, no obvious infection. EKG shows a junctional rhythm, no acute ischemic change. Cardiac enzyme testing 1 is not consistent with acute cardiac injury. Chest x-ray does not show pneumonia or CHF. Abdominal and pelvis CT does not show evidence for bowel obstruction or acute surgical process. There was some potential inflammation around the gallbladder, an ultrasound was recommended. The patient presents with a decreased urine output and some abdominal bloating and pain. She is in acute renal failure and will require a hospital stay. She received IV saline, she was given about 1500 cc of saline while in the ED. I spoke to case management, I talked to the patient. Hospitalization is required. An ultrasound of the abdomen was ordered to better evaluate the gallbladder, this result is pending. Medication Reconcilliation Current Medication List: was personally reviewed by me Blood Pressure Screening Patient's blood pressure: Normal blood pressure Blood pressure disposition: Did not require urgent referral Consults Time Called: 1540 Consulting Physician: Dr. Herrera, [facility] Hospitalist Returned Call: 1541 I discussed the patients case with Dr. Herrera [facility] Hospitalist. The patient will be further evaluated. Impression Primary Impression: Acute renal failure Additional Impression: Epigastric abdominal pain Scribe Attestation The scribe's documentation has been prepared under my direction and personally reviewed by me in its entirety. I confirm that the note above accurately reflects all work, treatment, procedures, and medical decision making performed by me. Departure Information Dispostion Being Evaluated By Hospitalist Referrals Maggie Dangelo M.D. (PCP) Patient Instructions My [facility] Problem Qualifiers
[2017-11-27] MEDS ORDERED: BUME1TAB PO ×2 (13:24→13:25)
[2017-11-27] MEDS ORDERED: AMLO5TAB2 PO (13:24)
[2017-11-27 13:53] LABS: BASO % 0.3 %; BASO ABS # 0.02 K/uL (0-0.2); EOS % 1.5 %; EOS ABS # 0.11 K/uL (0-0.5); HEMOGLOBIN 11.9 g/dL (12.0-16.0); IG# 0.01 K/uL (0.00-0.02); LYMPH % 17.5 %; LYMPH ABS # 1.25 K/uL (1.2-3.4); MEAN CELL VOLUME 96.8 fL (80-100); MEAN CORPUSCULAR HGB CONC 33.1 g/dl (32-36); MEAN PLATELET VOLUME 11.8 fL (7.4-10.4); MONO % 7.3 %; MONO ABS # 0.52 K/uL (0.11-0.59); NEUT % 73.3 %; NEUT ABS # 5.22 K/uL (1.4-6.5); PLATELET COUNT 145 K/uL (130-400); RED CELL DISTRIBUTION WIDTH SD 52.5 fL (36.4-46.3); WHITE BLOOD COUNT 7.13 K/uL (4.8-10.8)
--- NOTE | 2017-11-27 13:59 | DIAGNOSTIC IMAGING REPORT ---
CHEST ONE VIEW PORTABLE CLINICAL HISTORY: Pain radiating to the abdomen. COMPARISON STUDY: 09/16/2017 FINDINGS: The heart is borderline enlarged. There is mild interstitial prominence. An element of mild pulmonary vascular congestion cannot be excluded. There is no focal pulmonary consolidation. There are no pleural effusions. There is no free intraperitoneal air.[ IMPRESSION: 1. No evidence of free intraperitoneal air 2. No evidence of focal pulmonary consolidation 3. Mild nonspecific interstitial prominence Electronically signed by: Darrin Black M.D. 11/27/2017 1:57 PM Dictated Date/Time: 11/27/2017 1:57 PM
[2017-11-27 14:21] LABS: ALBUMIN 3.1 gm/dl (3.4-5.0); CALCIUM 9.2 mg/dl (8.5-10.1); CREATININE 4.15 mg/dl (0.60-1.20)
[2017-11-27] MEDS ORDERED: SODIUM CHLORIDE 0.9% 1000ML 1,000 ML IV STA (14:30)
[2017-11-27 14:40] LABS: TOTAL PROTEIN 7.2 gm/dl (6.4-8.2)
--- NOTE | 2017-11-27 15:18 | DIAGNOSTIC IMAGING REPORT ---
CT SCAN OF THE ABDOMEN AND PELVIS WITHOUT CONTRAST CLINICAL HISTORY: Abdominal plain and bloating COMPARISON STUDY: 02/18/2006 TECHNIQUE: CT scan of the abdomen and pelvis was performed from the lung bases to the proximal femurs. Images are reviewed in the axial, sagittal, and coronal planes. IV contrast was not administered for this examination. A dose lowering technique was utilized adhering to the principles of ALARA. CT DOSE: 1453.35 mGy.cm FINDINGS: Lower chest: There is mitral valve annulus calcification. There are coronary artery calcifications. There is no pericardial effusion. There are dependent atelectatic changes. Liver: No focal hepatic masses are visualized. The liver is mildly enlarged. The liver has a slightly nodular serosal surface. Gallbladder: No calculi are visualized. There is mild pericholecystic/periduodenal edema. Clinical correlation regards to cholecystitis is recommended. If desired a nuclear medicine hepatobiliary scan could be obtained to assess cystic duct patency. Spleen: Normal in size and attenuation. Pancreas: Unremarkable. Adrenal glands: Unremarkable. Kidneys: Bilateral calcifications are likely vascular. There is no hydronephrosis. No ureteral or bladder calculi are visualized. Bowel: There are no transition zones to indicate bowel obstruction. There is no acute diverticulitis. There are no findings to indicate acute appendicitis. The appendix is however not visualized with certainty. There is mild periduodenal edema. Peritoneum: There is no intraperitoneal free air or abdominal ascites. Vasculature: The abdominal aorta is normal in course and caliber. Adenopathy: There are mildly prominent lymph nodes at the level elina hepatis and SMA, likely reactive. Pelvic viscera: The bladder, and pelvic viscera are unremarkable. Skeletal structures: No destructive osseous lesions are seen. IMPRESSION: 1. No evidence of bowel obstruction. No evidence of free air 2. Mild pericholecystic/duodenal edema. Clinical correlation in regards to acute cholecystitis or duodenitis is recommended. Biliary ultrasonography might be considered in follow-up. Alternatively a nuclear medicine hepatobiliary scan could be obtained to assess cystic duct patency. Electronically signed by: Darrin Black M.D. 11/27/2017 3:16 PM Dictated Date/Time: 11/27/2017 3:06 PM
[2017-11-27 15:50] LABS: ISTAT CREATININE 4.1 mg/dl (0.6-1.3); ISTAT IONIZED CALCIUM 1.22 mmol/l (1.12-1.32); ISTAT POTASSIUM 4.9 mEq/L (3.3-5.0)
[2017-11-27 15:54] VITALS: O2SAT 98; BMI 47.2
[2017-11-27] MEDS ORDERED: SODIUM POLYST. SULF SUSP 15G/60ML PO STA ×2 (16:17→19:01)
[2017-11-27] MEDS ORDERED: SODIUM CHLORIDE 0.9% 1000ML 1,000 ML IV SCH (16:30)
--- NOTE | 2017-11-27 16:40 | History and Physical ---
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 Patient denies history of fever, dysuria , or flank pain, changes in appetite or oral intake, or problems with bowel movements. 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 (19) Lymphedema (20) Morbid obesity (21) Neuropathy (22) Precordial chest pain (23) Weakness Surgical Problems: (1) History of section (2) History of knee replacement procedure of right knee (3) Hx of heart artery stent Family History Diabetes mellitus FH: CAD (coronary artery disease) Hypertension Stroke Social History Smoking Status: Never Smoker Drug Use: none Marital Status: Housing status: lives alone Occupational Status: retired Immunizations History of Influenza Vaccine: Yes Influenza Vaccine Date: May 02, 2012 History of Tetanus Vaccine?: No History of Pneumococcal: Yes History of Hepatitis B Vaccine: Unknown Allergies Coded Allergies: Sulfamethoxazole w/Trimethoprim (Verified Allergy, Unknown, RASH, 11/27/17) Codeine (Verified Adverse Reaction, Mild, nausea, 11/27/17) Home Medications Scheduled Allopurinol (Zyloprim), 300 MG PO QAM Amlodipine Besylate (Norvasc), 5 MG PO DAILY Aspirin Enteric Coated (Ecotrin Or Generic), 81 MG PO QAM Atorvastatin (Lipitor), 80 MG PO QAM Bumetanide (Bumex), 1.5 TAB PO QAM Bumetanide (Bumex), 1 TAB PO HS Gabapentin (Neurontin), 600 MG PO QAM Gabapentin (Neurontin), 900 MG PO HS Insulin Aspart (Novolog Penfill), 14 UNITS SQ QA Insulin Aspart (Novolog Penfill), 16 UNITS SQ LUNCH Insulin Aspart (Novolog Penfill), 18 UNITS SQ SUPPER Insulin Glargine (Lantus Solostar), 50 UNITS SQ QAM Insulin Glargine (Lantus Solostar), 30 UNITS SC QPM Lisinopril (Lisinopril), 5 MG PO QAM Nitroglycerin (Nitrostat), 0.4 MG UT PRN Potassium Chloride (Klor-Con M20), 20 MEQ PO BID Scheduled PRN Lorazepam (Lorazepam), 2 MG PO HS PRN for Sleep Nystatin (Nystop), 1 APPLN EXT PRN PRN for EXCORIATION Review of Systems Constitutional: No fever, No sweats Eyes: No worsening of vision, No eye pain ENT: No hearing loss, No trouble swallowing Respiratory: No cough, No sputum, No shortness of breath Cardiovascular: No chest pain, No palpitations Abdomen: No pain, No nausea, No vomiting, No diarrhea, No constipation Musculoskeletal: No joint pain, No swelling Genitourinary - Female: + urinary retention, No dysuria Neurologic: No paralysis, No numbness/tingling Endocrine: No excessive urination Hematologic / Lymphatic: No abnormal bleeding/bruising Integumentary: No rash, No itch Physical Exam Vital Signs Date Time Temp Pulse Resp B/P (MAP) Pulse Ox O2 Delivery O2 Flow Rate FiO2 11/27/17 16:14 44 20 103/92 96 Room Air 11/27/17 15:54 98 Room Air 11/27/17 14:35 51 11/27/17 14:30 50 20 115/61 98 Room Air 11/27/17 12:44 36.3 56 20 102/57 98 General Appearance: no apparent distress, + obese Head: normocephalic, atraumatic Eyes: normal inspection, EOMI, sclerae normal ENT: normal ENT inspection, hearing grossly normal, pharynx normal Neck: supple, no JVD, trachea midline Respiratory/Chest: chest non-tender, lungs clear, normal breath sounds, no respiratory distress, no accessory muscle use Cardiovascular: no JVD, normal peripheral pulses, + bradycardia, + pertinent finding (1+ EDEMA bilateral lower extremities) Abdomen/GI: normal bowel sounds, non tender, soft, no organomegaly, no pulsatile mass Back: normal inspection, no CVA tenderness, no muscle spasm, normal range of motion Extremities/Musculoskelatal: normal inspection, no calf tenderness, normal range of motion, non-tender Neurologic/Psych: no motor/sensory deficits, alert, normal mood/affect, oriented x 3 Skin: normal color, warm/dry, no rash Diagnostics Laboratory Results Results Past 24 Hours Test 11/27/17 13:35 11/27/17 14:33 11/27/17 14:55 11/27/17 15:38 Range/Units White Blood Count 7.13 4.8-10.8 K/uL Red Blood Count 3.72 4.2-5.4 M/uL Hemoglobin 11.9 12.0-16.0 g/dL Hematocrit 36.0 37-47 % Mean Corpuscular Volume 96.8 80-100 fL Mean Corpuscular Hemoglobin 32.0 25-34 pg Mean Corpuscular Hemoglobin Concent 33.1 32-36 g/dl Platelet Count 145 130-400 K/uL Mean Platelet Volume 11.8 7.4-10.4 fL Neutrophils (%) (Auto) 73.3 % Lymphocytes (%) (Auto) 17.5 % Monocytes (%) (Auto) 7.3 % Eosinophils (%) (Auto) 1.5 % Basophils (%) (Auto) 0.3 % Neutrophils # (Auto) 5.22 1.4-6.5 K/uL Lymphocytes # (Auto) 1.25 1.2-3.4 K/uL Monocytes # (Auto) 0.52 0.11-0.59 K/uL Eosinophils # (Auto) 0.11 0-0.5 K/uL Basophils # (Auto) 0.02 0-0.2 K/uL RDW Standard Deviation 52.5 36.4-46.3 fL RDW Coefficient of Variation 15.0 11.5-14.5 % Immature Granulocyte % (Auto) 0.1 % Immature Granulocyte # (Auto) 0.01 0.00-0.02 K/uL Sodium Level 130 136-145 mmol/L Potassium Level 5.0 3.5-5.1 mmol/L Chloride Level 96 98-107 mmol/L Carbon Dioxide Level 23 21-32 mmol/L Anion Gap 11.0 17.0 16-25 mmol/L Blood Urea Nitrogen 110 7-18 mg/dl Creatinine 4.15 0.60-1.20 mg/dl Est Creatinine Clear Calc Drug Dose 14.0 ml/min Estimated GFR () 11.3 Estimated GFR (Non- 9.8 BUN/Creatinine Ratio 26.5 10-20 Random Glucose 196 70-99 mg/dl Calcium Level 9.2 8.5-10.1 mg/dl Magnesium Level 2.4 1.8-2.4 mg/dl Total Bilirubin 0.4 0.2-1 mg/dl Aspartate Amino Transf (AST/SGOT) 14 15-37 U/L Alanine Aminotransferase (ALT/SGPT) 23 12-78 U/L Alkaline Phosphatase 54 45-117 U/L Troponin I 0.020 0-0.045 ng/ml Total Protein 7.2 6.4-8.2 gm/dl Albumin 3.1 3.4-5.0 gm/dl Globulin 4.1 2.5-4.0 gm/dl Albumin/Globulin Ratio 0.8 0.9-2 Lipase 87 73-393 U/L Thyroid Stimulating Hormone (TSH) 1.920 0.300-4.500 uIu/ml Urine Color DK YELLOW Urine Appearance CLOUDY CLEAR Urine pH 5.0 4.5-7.5 Urine Specific [place] 1.023 1.000-1.030 Urine Protein TRACE NEG Urine Glucose (UA) NEG NEG Urine Ketones TRACE NEG Urine Occult Blood NEG NEG Urine Nitrite NEG NEG Urine Bilirubin NEG NEG Urine Urobilinogen NEG NEG Urine Leukocyte Esterase TRACE NEG Urine WBC (Auto) 1-5 0-5 /hpf Urine RBC (Auto) 5-10 0-4 /hpf Urine Hyaline Casts (Auto) >30 0-5 /lpf Urine Epithelial Cells (Auto) 20-30 0-5 /lpf Urine Bacteria (Auto) NEG NEG Urine Pathogenic Casts 1-5 GRANULAR CASTS 0 /lpf Bedside Hemoglobin 12.2 12.0-16.0 g/dl Bedside Hematocrit 36 37-47 % Bedside Sodium 133 135-144 mEq/L Bedside Potassium 4.9 3.3-5.0 mEq/L Bedside Chloride 96 101-112 mEq/L Bedside Total CO2 26 24-31 mEq/l Bedside Blood Urea Nitrogen 120 7-18 mg/dl Bedside Creatinine 4.1 0.6-1.3 mg/dl Bedside Glucose (other) 163 70-99 mg/dl Bedside Ionized Calcium (Tesfaye) 1.22 1.12-1.32 mmol/l Impression Assessment and Plan Acute renal failure with uremia on chronic CKD -admission BUN 110, creatinine 4.15, repeat lab as BUN 110 and creatinine 4.1, patient has had received IV fluids in the Emergency room -discussed with [facility] ice sculptor Dr. Fuontain with whom patient follows as outpatient in regards to labs and clinical situation, Dr. Fountain believes patient has acute tubular necrosis possible due to new medication such as lisinopril and advises to continue IV fluids and avoid lisinopril -review of labs show no obvious urinary tract infection -review of CT abdomen shows no evidence for pre-renal obstruction, will send for renal ultrasound -patient with urinary retention vs low urine output x 2 days, urine obtained in ED after straight cath, garcia to be placed to monitor accurate output Electrolytes -on potassium supplements at home due to diuretic use -admission potassium 5 -hospitalist has ordered Kayexalate as patient's serum potassium on upper ranges of normal and patient bradycardic in the ED with heart rate in the low 50s -patient to get insulin in the hospital also for diabetes which will also drive potassium intracellularly, give albuterol -bradycardia in the Emergency room, review of medications does not show Beta padma use (cardiology inpatient note in August 2017 discusses history junctional arrhythmias when on beta padma and that 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) Cardiac -History of coronary artery disease, status post percutaneous coronary intervention to the right coronary artery in 2001 with residual disease of the left anterior descending artery and diagonal: continue aspirin --severe mitral annular calcification as reported in August 2017 echocardiogram -Diastolic dysfunction with normal left ventricular systolic function - patient is not fluid overloaded at this time and in acute renal failure so will hold diuretics for now -bradycardia in the Emergency room, review of medications does not show Beta padma use (cardiology inpatient note in August 2017 discusses history junctional arrhythmias when on beta padma and that 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
[2017-11-27] MEDS ORDERED: GLUCAGON FOR INJ 1 MG VIAL SQ PRN (17:00)
[2017-11-27] MEDS ORDERED: DEXTROSE 50% 50 ML SYR IV PRN (17:00)
[2017-11-27] MEDS ORDERED: GLUCOSE 40% GEL 15 GM TUBE PO PRN (17:00)
[2017-11-27] MEDS ORDERED: GLUCOSE 10 TABS/TUBE PO PRN (17:00)
[2017-11-27] MEDS ORDERED: ALBUTEROL 0.5% NEB SOLN 2.5 MG/0.5 ML VIAL INH STA (17:02)
--- NOTE | 2017-11-27 18:28 | DIAGNOSTIC IMAGING REPORT ---
ABDOMEN COMPLETE (US) CLINICAL HISTORY: Acute renal failure, abdominal pain, bloating. COMPARISON STUDY: CT scan dated 11/27/2017 FINDINGS: The liver is mildly enlarged. No focal hepatic masses are visualized. No gallstones are visualized. There is gallbladder wall thickening/edema which measures up to 1 cm. There is trace pericholecystic fluid. Technologist reports a negative sonographic Almonte sign. There is no ductal dilatation. The common bile duct measures 6 mm. The spleen measures 12 cm in length. The right kidney measures 12.1 cm in length. The left kidney measures 11.2 cm in length. There is no right-sided hydronephrosis. There is mild dilatation of the left renal pelvis. The proximal abdominal aorta appeared normal. The mid and distal abdominal aorta were not visualized. No abnormalities of the IVC were visualized. There are no bladder abnormalities. The study was mildly limited due to the patient's body habitus. IMPRESSION: 1. Gallbladder wall thickening/edema, measuring up to 1 cm. 2. No gallstones identified 3. Trace pericholecystic fluid 4. No evidence of ductal dilatation. 5. Mild fullness of the left renal pelvis Electronically signed by: Darrin Black M.D. 11/27/2017 6:27 PM Dictated Date/Time: 11/27/2017 6:22 PM
[2017-11-27 18:46] VITALS: BP 106/45; PULSE 72; TEMP 36.4; O2SAT 98
[2017-11-27] MEDS: SODIUM CHLORIDE 0.9% 1000ML 1,000 ML IV SCH (19:32)
[2017-11-27 20:00] VITALS: BP 116/69; PULSE 71; TEMP 36.4; O2SAT 97
[2017-11-27] MEDS ORDERED: INSULIN ASPART 100 UNITS/ML 3 ML PEN SQ SCH (21:00)
[2017-11-27] MEDS ORDERED: INSULIN ASPART 100 UNITS/ML 3 ML PEN SC SCH (21:00)
[2017-11-27] MEDS: INSULIN GLARGINE SOLOSTAR 100 UNITS/ML 3 ML PEN SC SCH (21:10)
[2017-11-27 22:34] LABS: ALBUMIN 2.9 gm/dl (3.4-5.0); CALCIUM 8.9 mg/dl (8.5-10.1); CREATININE 3.35 mg/dl (0.60-1.20); POTASSIUM 3.9 mmol/L (3.5-5.1); TOTAL PROTEIN 6.3 gm/dl (6.4-8.2)
[2017-11-27 23:59] VITALS: BP 104/39; PULSE 73; TEMP 36.6; O2SAT 96
[2017-11-28] VITALS (7 sets, daily range): BP systolic 112–152; BP diastolic 54–73; PULSE 74–86; TEMP 36.7–37.1; O2SAT 94–99
[2017-11-28] MEDS: SODIUM CHLORIDE 0.9% 1000ML 1,000 ML IV SCH ×3 (03:39→19:14)
[2017-11-28 07:28] LABS: BASO % 0.2 %; BASO ABS # 0.01 K/uL (0-0.2); EOS % 2.9 %; EOS ABS # 0.15 K/uL (0-0.5); HEMATOCRIT 31.8 % (37-47); HEMOGLOBIN 10.3 g/dL (12.0-16.0); IG# 0.01 K/uL (0.00-0.02); LYMPH % 11.6 %; LYMPH ABS # 0.59 K/uL (1.2-3.4); MEAN CELL VOLUME 96.4 fL (80-100); MEAN CORPUSCULAR HEMOGLOBIN 31.2 pg (25-34); MEAN CORPUSCULAR HGB CONC 32.4 g/dl (32-36); MEAN PLATELET VOLUME 11.1 fL (7.4-10.4); MONO % 7.9 %; NEUT % 77.2 %; NEUT ABS # 3.93 K/uL (1.4-6.5); PLATELET COUNT 122 K/uL (130-400); RED CELL DISTRIBUTION WIDTH CV 14.8 % (11.5-14.5); RED CELL DISTRIBUTION WIDTH SD 51.2 fL (36.4-46.3); WHITE BLOOD COUNT 5.09 K/uL (4.8-10.8)
[2017-11-28] MEDS: ASPIRIN 81 MG ECTAB PO SCH (07:48)
[2017-11-28 08:00] LABS: ALBUMIN 2.9 gm/dl (3.4-5.0); CALCIUM 8.6 mg/dl (8.5-10.1); CREATININE 2.58 mg/dl (0.60-1.20); POTASSIUM 3.8 mmol/L (3.5-5.1)
[2017-11-28] MEDS ORDERED: INSULIN GLARGINE SOLOSTAR 100 UNITS/ML 3 ML PEN SQ SCH (09:00)
--- NOTE | 2017-11-28 10:34 | Clinical Documentation Query ---
CLINICAL DOCUMENTATION QUERY H&P state patient has having CHF, unspecified. Echo from August 2017 showed severe mitral annular calcification, diastolic dysfunction with normal LV systolic function. In your clinical opinion is this patient being managed for: ( x ) Chronic diastolic (preserved EF) CHF ( ) Not Agree ( ) Other explanation of clinical findings (Please Explain) ( ) Unable to determine (Please Define) ( ) Need to Discuss The medical record reflects the following clinical findings, treatment, and risk factors. Clinical Indicators: As above. Treatment: telemetry, I/O's, daily weights, Risk Factors: HTN, CKD, CAD Please clarify and document your clinical opinion in the progress notes and discharge summary. Terms such as "probable", "suspected", "likely", "questionable", "possible", or "still to be ruled out" are acceptable. IF IN AGREEMENT, YOU MUST DOCUMENT ABOVE DIAGNOSTIC STATEMENT IN DAILY PROGRESS NOTES AND DISCHARGE SUMMARY. This document is not part of the patient's record. Thank You, Wally Torres, RN [phone]
--- NOTE | 2017-11-28 10:51 | Nephrology Consultation ---
Nephrology Consultation Date & Providers Date of Consultation: Nov 28, 2017. Primary Care Provider: Mike Lira PA-C Referring Provider: Reason for Consultation Acute on chronic kidney disease History of Present Illness Ms. Gonzalez is a 77 year old white female who is seen at the request of Dr. Herrera for evaluation of acute on chronic kidney injury. Medical records in the hospital EMR were reviewed today and are summarized as follows: Ms. Gonzalez has stage IV CKD (advanced impairment) w/ baseline creatinine 2.0. Her renal impairment is due to diabetic nephropathy. Her medical history is significant for AODM, obesity (BMI 47), ASCVD, chronic lymphedema, gout and HTN. Ms. Gonzalez was last hospitalized 09/08 with hypertensive urgency. Her blood pressure was controlled following the addition of Amlodipine and Lisinopril to her medical regimen. Ms. Gonzalez reports that over the last 2 weeks she has suffered from bilateral upper quadrant abdominal discomfort, nausea and oliguria. She presented to the ED yesterday evening where she was found to have ASPEN with creatinine 4.1. Urinalysis revealed granular casts. Abdominal CT was negative for hydronephrosis but did reveal gallbladder wall thickening. Past Medical/Surgical History Medical: Anxiety disorder Chronic kidney disease, stage IV Coronary artery disease Diabetes mellitus Lymphedema Gout Hyperlipidemia Hypertension Hypokalemia Morbid obesity Vitamin D deficiency Surgical: None reported Allergies Coded Allergies: Sulfamethoxazole w/Trimethoprim (Verified Allergy, Unknown, RASH, 11/27/17) Codeine (Verified Adverse Reaction, Mild, nausea, 11/27/17) Inpatient Medications Current Inpatient Medications Medications (Trade) Dose Ordered Sig/Claire Route Start Time Stop Time Status Last Admin Dose Admin Aspirin (Ecotrin Tab) 81 mg QAM PO 11/28/17 09:00 12/28/17 08:59 11/28/17 07:48 81 MG Lorazepam (Ativan Tab) 2 mg HS PRN PO 11/27/17 16:45 12/27/17 16:44 Glucose (Glucose 40% Gel) 15-30 GRAMS 15 GRAMS... UD PRN PO 11/27/17 17:00 12/27/17 16:59 Glucose (Glucose Chew Tab) 4-8 Tablets 4 Tabl... UD PRN PO 11/27/17 17:00 12/27/17 16:59 Dextrose (Dextrose 50% 50ML Syringe) 25-50ML OF 50% DW IV FOR... UD PRN IV 11/27/17 17:00 12/27/17 16:59 Glucagon (Glucagon Inj) 1 mg UD PRN SQ 11/27/17 17:00 12/27/17 16:59 Insulin Glargine (Lantus Solostar Pen) 30 units QPM SC 11/27/17 21:00 12/27/17 20:59 11/27/17 21:10 30 UNITS Sodium Chloride 1,000 ml @ 125 mls/hr Q8H IV 11/27/17 19:30 12/27/17 19:29 11/28/17 03:39 125 MLS/HR Insulin Glargine (Lantus Solostar Pen) 30 units QAM SQ 11/29/17 09:00 12/29/17 08:59 Insulin Aspart (novoLOG ASPART) SLIDING SCALE ACHS SC 11/28/17 11:00 12/28/17 10:59 Family History Diabetes mellitus FH: CAD (coronary artery disease) Hypertension Stroke Negative for CKD/ESRD Social History Smoking Status: Never Smoker Drug Use: none Marital Status: Housing Status: lives alone Occupation: retired . Retired. Never a smoker Review of Systems Constitutional: No fever Cardiovascular: No chest pain Abdomen: + pain, + nausea A complete review of systems was performed. Pertinent positives are noted above. All other systems are negative. Physical Exam Date Time Temp Pulse Resp B/P (MAP) Pulse Ox O2 Delivery O2 Flow Rate FiO2 11/28/17 08:00 95 Room Air 11/28/17 08:00 36.9 78 18 113/66 (82) 94 Room Air 11/28/17 04:34 36.8 74 22 112/73 (86) 95 Room Air 11/28/17 04:00 Room Air 11/27/17 23:59 Room Air 11/27/17 23:59 36.6 73 14 104/39 (60) 96 Room Air 11/27/17 23:59 36.6 73 14 104/39 (60) 96 Room Air 11/27/17 20:00 36.4 71 16 116/69 (85) 97 Room Air 11/27/17 20:00 Room Air 11/27/17 18:46 36.4 72 18 106/45 (65) 98 Room Air 11/27/17 18:28 70 18 132/57 96 11/27/17 17:11 43 16 11/27/17 16:41 44 20 11/27/17 16:14 44 20 103/92 96 Room Air 11/27/17 16:13 103/92 11/27/17 16:11 46 13 11/27/17 15:54 98 Room Air 11/27/17 15:41 47 19 11/27/17 14:41 44 13 95 11/27/17 14:35 51 11/27/17 14:31 115/61 11/27/17 14:30 50 20 115/61 98 Room Air 11/27/17 14:14 113/54 11/27/17 12:44 36.3 56 20 102/57 98 General Appearance: no apparent distress Head: normocephalic, atraumatic Eyes: PERRL, EOMI Neck: no adenopathy Respiratory/Chest: lungs clear, normal breath sounds Cardiovascular: regular rate, rhythm Abdomen/GI: soft, + pertinent finding (hypoactive bowel sounds. No tenderness to palpation) Genitourinary - Female: + pertinent finding (Bal catheter draining clear yellow urine) Extremities/Musculoskelatal: no calf tenderness, + pertinent finding (1+ pretibial pitting edema. Pretibial hemosiderin staining noted) Neurologic/Psych: alert, oriented x 3 Laboratory Results Last 24 Hours Test 11/27/17 13:35 11/27/17 14:33 11/27/17 14:55 11/27/17 15:38 White Blood Count 7.13 K/uL Red Blood Count 3.72 M/uL Hemoglobin 11.9 g/dL Hematocrit 36.0 % Mean Corpuscular Volume 96.8 fL Mean Corpuscular Hemoglobin 32.0 pg Mean Corpuscular Hemoglobin Concent 33.1 g/dl Platelet Count 145 K/uL Mean Platelet Volume 11.8 fL Neutrophils (%) (Auto) 73.3 % Lymphocytes (%) (Auto) 17.5 % Monocytes (%) (Auto) 7.3 % Eosinophils (%) (Auto) 1.5 % Basophils (%) (Auto) 0.3 % Neutrophils # (Auto) 5.22 K/uL Lymphocytes # (Auto) 1.25 K/uL Monocytes # (Auto) 0.52 K/uL Eosinophils # (Auto) 0.11 K/uL Basophils # (Auto) 0.02 K/uL RDW Standard Deviation 52.5 fL RDW Coefficient of Variation 15.0 % Immature Granulocyte % (Auto) 0.1 % Immature Granulocyte # (Auto) 0.01 K/uL Sodium Level 130 mmol/L Potassium Level mmol/L 5.0 mmol/L Chloride Level 96 mmol/L Carbon Dioxide Level 23 mmol/L Anion Gap 11.0 mmol/L 17.0 mmol/L Blood Urea Nitrogen 110 mg/dl Creatinine 4.15 mg/dl Est Creatinine Clear Calc Drug Dose 14.0 ml/min Estimated GFR () 11.3 Estimated GFR (Non- 9.8 BUN/Creatinine Ratio 26.5 Random Glucose 196 mg/dl Calcium Level 9.2 mg/dl Magnesium Level mg/dl 2.4 mg/dl Total Bilirubin 0.4 mg/dl Aspartate Amino Transf (AST/SGOT) U/L 14 U/L Alanine Aminotransferase (ALT/SGPT) 23 U/L Alkaline Phosphatase 54 U/L Troponin I 0.020 ng/ml Total Protein 7.2 gm/dl Albumin 3.1 gm/dl Globulin 4.1 gm/dl Albumin/Globulin Ratio 0.8 Lipase 87 U/L Thyroid Stimulating Hormone (TSH) 1.920 uIu/ml Urine Color DK YELLOW Urine Appearance CLOUDY Urine pH 5.0 Urine Specific [place] 1.023 Urine Protein TRACE Urine Glucose (UA) NEG Urine Ketones TRACE Urine Occult Blood NEG Urine Nitrite NEG Urine Bilirubin NEG Urine Urobilinogen NEG Urine Leukocyte Esterase TRACE Urine WBC (Auto) 1-5 /hpf Urine RBC (Auto) 5-10 /hpf Urine Hyaline Casts (Auto) >30 /lpf Urine Epithelial Cells (Auto) 20-30 /lpf Urine Bacteria (Auto) NEG Urine Pathogenic Casts 1-5 GRANULAR CASTS /lpf Bedside Hemoglobin 12.2 g/dl Bedside Hematocrit 36 % Bedside Sodium 133 mEq/L Bedside Potassium 4.9 mEq/L Bedside Chloride 96 mEq/L Bedside Total CO2 26 mEq/l Bedside Blood Urea Nitrogen 120 mg/dl Bedside Creatinine 4.1 mg/dl Bedside Glucose (other) 163 mg/dl Bedside Ionized Calcium (Tesfaye) 1.22 mmol/l Test 11/27/17 20:16 11/27/17 21:57 11/28/17 06:42 11/28/17 07:09 Bedside Glucose 128 mg/dl 129 mg/dl Sodium Level 136 mmol/L 137 mmol/L Potassium Level 3.9 mmol/L 3.8 mmol/L Chloride Level 100 mmol/L 102 mmol/L Carbon Dioxide Level 26 mmol/L 25 mmol/L Anion Gap 10.0 mmol/L 9.0 mmol/L Blood Urea Nitrogen 100 mg/dl 96 mg/dl Creatinine 3.35 mg/dl 2.58 mg/dl Est Creatinine Clear Calc Drug Dose 17.3 ml/min 22.5 ml/min Estimated GFR () 14.7 20.1 Estimated GFR (Non- 12.7 17.4 BUN/Creatinine Ratio 30.0 37.2 Random Glucose 153 mg/dl 127 mg/dl Calcium Level 8.9 mg/dl 8.6 mg/dl Magnesium Level 2.2 mg/dl Total Bilirubin 0.4 mg/dl 0.4 mg/dl Aspartate Amino Transf (AST/SGOT) 17 U/L 18 U/L Alanine Aminotransferase (ALT/SGPT) 18 U/L 18 U/L Alkaline Phosphatase 49 U/L 48 U/L Total Protein 6.3 gm/dl 6.0 gm/dl Albumin 2.9 gm/dl 2.9 gm/dl Globulin 3.4 gm/dl 3.1 gm/dl Albumin/Globulin Ratio 0.8 0.9 White Blood Count 5.09 K/uL Red Blood Count 3.30 M/uL Hemoglobin 10.3 g/dL Hematocrit 31.8 % Mean Corpuscular Volume 96.4 fL Mean Corpuscular Hemoglobin 31.2 pg Mean Corpuscular Hemoglobin Concent 32.4 g/dl Platelet Count 122 K/uL Mean Platelet Volume 11.1 fL Neutrophils (%) (Auto) 77.2 % Lymphocytes (%) (Auto) 11.6 % Monocytes (%) (Auto) 7.9 % Eosinophils (%) (Auto) 2.9 % Basophils (%) (Auto) 0.2 % Neutrophils # (Auto) 3.93 K/uL Lymphocytes # (Auto) 0.59 K/uL Monocytes # (Auto) 0.40 K/uL Eosinophils # (Auto) 0.15 K/uL Basophils # (Auto) 0.01 K/uL RDW Standard Deviation 51.2 fL RDW Coefficient of Variation 14.8 % Immature Granulocyte % (Auto) 0.2 % Immature Granulocyte # (Auto) 0.01 K/uL Impression (1) Acute tubular necrosis (2) Chronic kidney disease, stage IV (severe) (3) Morbid obesity (4) Diabetes mellitus type 2 (5) Benign hypertension (6) Coronary artery disease (7) Lymphedema Clinically suspect acute cholecystitis complicated by dehydration and ATN Recommendations ACUTE KIDNEY INJURY: -- Stop Lisinopril and Amlodipine -- Kidney function and urine output improving w/ gentle hydration. No acute indication for HD at this time -- Continue gentle hydration w/ 0.9 NS -- Monitor serial PRP CHRONIC KIDNEY DISEASE: -- Baseline creatinine has been 2.0 ANEMIA: -- Mild asymptomatic anemia. Hgb remains stable at 10.3. Will monitor GI: -- Abdominal CT and US reports reviewed this am: swollen gallbladder concerning for acute cholecystitis. Recommend general surgery consultation and HIDA scan
--- NOTE | 2017-11-28 10:54 | Gastrointestinal Consultation ---
Gastrointestinal Consultation Date of Consultation: Nov 28, 2017 Attending Physician: Javier Consulting Physician: Mich Reason for Consultation: gb wall thickening History of Present Illness Patient is a 77 year old female w/ history of CAD s/p stent, CHF on diuretics, CKD and others listed below who presented to [facility] for upper abdominal pain x 2 weeks and decreased urinary output x 48 hours - GI was asked to evaluate the pt for abnormal GB imaging. Pt was seen and evaluated, chart reviewed. Family is at bedside. Pt notes upper abd discomfort x 2 weeks. Intermittent explained as a pressure and bloating. No correlation between pain and PO intake or BM. No nausea, vomiting. Has never had similar pain before. No change in BM. No black or bloody stools. Notes her upper abd bloating and pain become so severe that she felt SOB. This AM she notes improvement of her abdominal discomfort. Today, no fever, chills, CP, SOB. NSAIDs: ASA daily, advil maybe once a week for aches and pains This AM, VSS. No evidence of leukocytosis, H&H 10.3, 31.8 w/ plt 122. Lipase 87 with non-elevated liver function tests. On arrival BUN 110 PRESSURE DISPATCHER 4 currently trending down to BUN 96, PRESSURE DISPATCHER 2.6. ABD US 11/27/17: Gallbladder wall thickening/edema, measuring up to 1 cm. No gallstones identified Trace pericholecystic fluid No evidence of ductal dilatation. Mild fullness of the left renal pelvis CT ABD 11/27/17: No evidence of bowel obstruction. No evidence of free air Mild pericholecystic/duodenal edema. Clinical correlation in regards to acute cholecystitis or duodenitis is recommended. Biliary ultrasonography might be considered in follow-up. Alternatively a nuclear medicine hepatobiliary scan could be obtained to assess cystic duct patency. Past Medical/Surgical History Medical Problems: (1) Acute renal failure Status: Acute (2) Acute renal failure Status: Acute (3) Bradycardia Status: Acute (4) Epigastric abdominal pain Status: Acute (5) Hyperkalemia Status: Acute (6) Precordial chest pain Status: Acute (7) Weakness Status: Acute Past Medical History: CKD-V, ASPEN, angina, HTN, dyslipidemia, glaucoma, gout, T2DM, gout Past Surgical History: wisdom teeth x 3 R total knee replacement hx cardiac stent colonoscopy Family History Diabetes mellitus FH: CAD (coronary artery disease) Hypertension Stroke Social History Smoking Status: Never Smoker Drug Use: none Marital Status: Housing Status: lives with family Occupation Status: retired Allergies Coded Allergies: Sulfamethoxazole w/Trimethoprim (Verified Allergy, Unknown, RASH, 11/27/17) Codeine (Verified Adverse Reaction, Mild, nausea, 11/27/17) Current Medications Home Meds and Scripts Medications Dose Route/Sig Max Daily Dose Days Date Category Bumex (Bumetanide) 1 Mg Tab 1 Tab PO HS 90 11/27/17 Reported Bumex (Bumetanide) 1 Mg Tab 1.5 Tab PO QAM 90 11/27/17 Reported Norvasc (Amlodipine Besylate) 5 Mg Tab 5 Mg PO DAILY 11/27/17 Reported Nystop (Nystatin) 45 Appln/15 Gm Powd 1 Appln EXT PRN PRN 09/18/17 Rx Klor-Con M20 (Potassium Chloride) 20 Meq Tabcr 20 Meq PO BID 09/18/17 Rx Lisinopril 5 Mg Tab 5 Mg PO QAM 09/18/17 Rx Novolog Penfill (Insulin Aspart) 100 Unit/Ml Inj 18 Units SQ SUPPER 04/07/17 Reported Lorazepam 2 Mg Tab 2 Mg PO HS PRN 04/07/17 Reported Neurontin (Gabapentin) 300 Mg Cap 900 Mg PO HS 04/07/17 Reported Lantus Solostar (Insulin Glargine) 100 Unit/Ml Inj 30 Units SC QPM 04/07/17 Reported Lantus Solostar (Insulin Glargine) 100 Unit/Ml Inj 50 Units SQ QAM 04/07/17 Reported Novolog Penfill (Insulin Aspart) 100 Unit/Ml Inj 16 Units SQ LUNCH 04/07/17 Reported Novolog Penfill (Insulin Aspart) 100 Unit/Ml Inj 14 Units SQ QA 04/07/17 Reported Lipitor (Atorvastatin Calcium) 80 Mg Tab 80 Mg PO QAM 08/04/15 Reported Zyloprim (Allopurinol) 300 Mg Tab 300 Mg PO QAM 05/03/12 Reported Ecotrin Or Generic (Aspirin) 81 Mg Tab 81 Mg PO QAM 05/03/12 Reported Neurontin (Gabapentin) 300 Mg Cap 600 Mg PO QAM 05/03/12 Reported Nitrostat (Nitroglycerin) 0.4 Mg Tab 0.4 Mg UT PRN 05/03/12 Reported Review of Systems Constitutional: No fever, No chills, No weight loss, No weakness Respiratory: No cough, No shortness of breath Cardiac: No chest pain, No edema Abdomen: No pain, No nausea, No vomiting, No diarrhea, No constipation, No GI bleeding Physical Exam Date Time Temp Pulse Resp B/P (MAP) Pulse Ox O2 Delivery O2 Flow Rate FiO2 11/28/17 08:00 95 Room Air 11/28/17 08:00 36.9 78 18 113/66 (82) 94 Room Air 11/28/17 04:34 36.8 74 22 112/73 (86) 95 Room Air 11/28/17 04:00 Room Air 11/27/17 23:59 Room Air 11/27/17 23:59 36.6 73 14 104/39 (60) 96 Room Air 11/27/17 23:59 36.6 73 14 104/39 (60) 96 Room Air 11/27/17 20:00 36.4 71 16 116/69 (85) 97 Room Air 11/27/17 20:00 Room Air 11/27/17 18:46 36.4 72 18 106/45 (65) 98 Room Air 11/27/17 18:28 70 18 132/57 96 11/27/17 17:11 43 16 11/27/17 16:41 44 20 11/27/17 16:14 44 20 103/92 96 Room Air 11/27/17 16:13 103/92 11/27/17 16:11 46 13 11/27/17 15:54 98 Room Air 11/27/17 15:41 47 19 11/27/17 14:41 44 13 95 11/27/17 14:35 51 11/27/17 14:31 115/61 11/27/17 14:30 50 20 115/61 98 Room Air 11/27/17 14:14 113/54 11/27/17 12:44 36.3 56 20 102/57 98 General Appearance: no apparent distress Neck: supple, trachea midline Respiratory/Chest: lungs clear Cardiovascular: regular rate, rhythm Abdomen: normal bowel sounds, soft, no organomegaly, + tenderness (mild upper abd tenderness, no rebound or guarding) Neurologic/Psych: alert, normal mood/affect, oriented x 3 Laboratory Results Last 24 Hours Test 11/27/17 13:35 11/27/17 14:33 11/27/17 14:55 11/27/17 15:38 White Blood Count 7.13 K/uL Red Blood Count 3.72 M/uL Hemoglobin 11.9 g/dL Hematocrit 36.0 % Mean Corpuscular Volume 96.8 fL Mean Corpuscular Hemoglobin 32.0 pg Mean Corpuscular Hemoglobin Concent 33.1 g/dl Platelet Count 145 K/uL Mean Platelet Volume 11.8 fL Neutrophils (%) (Auto) 73.3 % Lymphocytes (%) (Auto) 17.5 % Monocytes (%) (Auto) 7.3 % Eosinophils (%) (Auto) 1.5 % Basophils (%) (Auto) 0.3 % Neutrophils # (Auto) 5.22 K/uL Lymphocytes # (Auto) 1.25 K/uL Monocytes # (Auto) 0.52 K/uL Eosinophils # (Auto) 0.11 K/uL Basophils # (Auto) 0.02 K/uL RDW Standard Deviation 52.5 fL RDW Coefficient of Variation 15.0 % Immature Granulocyte % (Auto) 0.1 % Immature Granulocyte # (Auto) 0.01 K/uL Sodium Level 130 mmol/L Potassium Level mmol/L 5.0 mmol/L Chloride Level 96 mmol/L Carbon Dioxide Level 23 mmol/L Anion Gap 11.0 mmol/L 17.0 mmol/L Blood Urea Nitrogen 110 mg/dl Creatinine 4.15 mg/dl Est Creatinine Clear Calc Drug Dose 14.0 ml/min Estimated GFR () 11.3 Estimated GFR (Non- 9.8 BUN/Creatinine Ratio 26.5 Random Glucose 196 mg/dl Calcium Level 9.2 mg/dl Magnesium Level mg/dl 2.4 mg/dl Total Bilirubin 0.4 mg/dl Aspartate Amino Transf (AST/SGOT) U/L 14 U/L Alanine Aminotransferase (ALT/SGPT) 23 U/L Alkaline Phosphatase 54 U/L Troponin I 0.020 ng/ml Total Protein 7.2 gm/dl Albumin 3.1 gm/dl Globulin 4.1 gm/dl Albumin/Globulin Ratio 0.8 Lipase 87 U/L Thyroid Stimulating Hormone (TSH) 1.920 uIu/ml Urine Color DK YELLOW Urine Appearance CLOUDY Urine pH 5.0 Urine Specific [place] 1.023 Urine Protein TRACE Urine Glucose (UA) NEG Urine Ketones TRACE Urine Occult Blood NEG Urine Nitrite NEG Urine Bilirubin NEG Urine Urobilinogen NEG Urine Leukocyte Esterase TRACE Urine WBC (Auto) 1-5 /hpf Urine RBC (Auto) 5-10 /hpf Urine Hyaline Casts (Auto) >30 /lpf Urine Epithelial Cells (Auto) 20-30 /lpf Urine Bacteria (Auto) NEG Urine Pathogenic Casts 1-5 GRANULAR CASTS /lpf Bedside Hemoglobin 12.2 g/dl Bedside Hematocrit 36 % Bedside Sodium 133 mEq/L Bedside Potassium 4.9 mEq/L Bedside Chloride 96 mEq/L Bedside Total CO2 26 mEq/l Bedside Blood Urea Nitrogen 120 mg/dl Bedside Creatinine 4.1 mg/dl Bedside Glucose (other) 163 mg/dl Bedside Ionized Calcium (Tesfaye) 1.22 mmol/l Test 11/27/17 20:16 11/27/17 21:57 11/28/17 06:42 11/28/17 07:09 Bedside Glucose 128 mg/dl 129 mg/dl Sodium Level 136 mmol/L 137 mmol/L Potassium Level 3.9 mmol/L 3.8 mmol/L Chloride Level 100 mmol/L 102 mmol/L Carbon Dioxide Level 26 mmol/L 25 mmol/L Anion Gap 10.0 mmol/L 9.0 mmol/L Blood Urea Nitrogen 100 mg/dl 96 mg/dl Creatinine 3.35 mg/dl 2.58 mg/dl Est Creatinine Clear Calc Drug Dose 17.3 ml/min 22.5 ml/min Estimated GFR () 14.7 20.1 Estimated GFR (Non- 12.7 17.4 BUN/Creatinine Ratio 30.0 37.2 Random Glucose 153 mg/dl 127 mg/dl Calcium Level 8.9 mg/dl 8.6 mg/dl Magnesium Level 2.2 mg/dl Total Bilirubin 0.4 mg/dl 0.4 mg/dl Aspartate Amino Transf (AST/SGOT) 17 U/L 18 U/L Alanine Aminotransferase (ALT/SGPT) 18 U/L 18 U/L Alkaline Phosphatase 49 U/L 48 U/L Total Protein 6.3 gm/dl 6.0 gm/dl Albumin 2.9 gm/dl 2.9 gm/dl Globulin 3.4 gm/dl 3.1 gm/dl Albumin/Globulin Ratio 0.8 0.9 White Blood Count 5.09 K/uL Red Blood Count 3.30 M/uL Hemoglobin 10.3 g/dL Hematocrit 31.8 % Mean Corpuscular Volume 96.4 fL Mean Corpuscular Hemoglobin 31.2 pg Mean Corpuscular Hemoglobin Concent 32.4 g/dl Platelet Count 122 K/uL Mean Platelet Volume 11.1 fL Neutrophils (%) (Auto) 77.2 % Lymphocytes (%) (Auto) 11.6 % Monocytes (%) (Auto) 7.9 % Eosinophils (%) (Auto) 2.9 % Basophils (%) (Auto) 0.2 % Neutrophils # (Auto) 3.93 K/uL Lymphocytes # (Auto) 0.59 K/uL Monocytes # (Auto) 0.40 K/uL Eosinophils # (Auto) 0.15 K/uL Basophils # (Auto) 0.01 K/uL RDW Standard Deviation 51.2 fL RDW Coefficient of Variation 14.8 % Immature Granulocyte % (Auto) 0.2 % Immature Granulocyte # (Auto) 0.01 K/uL Impression Patient is a 77 year old female w/ abd fullness x 2 weeks, decreased urine output x 48 hours admitted through the ED for ASPEN on CKD-V. CT imaging w/ mild pericholecystic/periduodenal edema. LFTs and lipase non-elevated, concern for acute cholecystitis. General surgery was consulted in addition. Plan - LFTs, Lipase normal - Consider HIDA scan - Consider EGD during admission - ? duodenitis - No GI role for ABX therapy - ASPEN on CKD per primary team - Please call with any questions or concerns. I performed a history and physical examination of the patient. I have discussed the patient's case, impression and plan with OWEN Cornell. Her note reflects my findings and plan. Symptoms most likely related to renal failure. She is doing better. No need for EGD at this point. Kenji Epps MD
[2017-11-28] MEDS ORDERED: INSULIN ASPART 100 UNITS/ML 3 ML PEN SQ SCH (11:00)
[2017-11-28] MEDS: INSULIN ASPART 100 UNITS/ML 3 ML PEN SC SCH ×3 (11:58→21:40)
--- NOTE | 2017-11-28 14:38 | Surgery Consultation ---
Consultation Date of Consultation: Nov 28, 2017. Attending Physician: Brendan Herrera M.D. History of Present Illness The patient is a 77 year old female who presents to the Emergency Room with complaints of intermittent upper abdominal pain for the past several days. She rates her discomfort as a 7/10 in severity and states her abdomen feels bloated and like "it could just blow up". Over the past 3 days, the pain has been constant. She admits to some shortness of breath from the abdominal bloating. She denies any nausea, vomiting or diarrhea. She has not urinated since yesterday but states she has not felt the need to urinate. She does take daily diuretics, 2 pills in the morning, 1.5 pills at night. She believes she has been eating and drinking normally. She has experienced no GERD type symptoms. She still has her gallbladder and appendix. She denies any history of diverticulitis. She has no history of COPD or emphysema. She has been afebrile. The patient denies any recent sick contacts. She notes she was here in the hospital in August of 2017 for pneumonia and has been battling "cold symptoms" for the past 1 month. She is diabetic and states her BSG was 202 this morning when checked at home. She notes she is currently on antibiotics for a wound on one leg that is being followed [facility]. I was asked for consult possible acute cholecystitis, I reviewed pt's H/P with pt, now pt denies abdominal pain, no nausea, no vomiting, Past Medical/Surgical History Medical Problems: (1) Acute renal failure Status: Acute (2) Acute renal failure Status: Acute (3) Bradycardia Status: Acute (4) Epigastric abdominal pain Status: Acute (5) Hyperkalemia Status: Acute (6) Precordial chest pain Status: Acute (7) Weakness Status: Acute Family History Diabetes mellitus FH: CAD (coronary artery disease) Hypertension Stroke Social History Smoking Status: Never Smoker Smokeless Tobacco Use: No Alcohol Use: none Drug Use: none Marital Status: Housing Status: lives with family Occupation Status: retired Allergies Coded Allergies: Sulfamethoxazole w/Trimethoprim (Verified Allergy, Unknown, RASH, 11/27/17) Codeine (Verified Adverse Reaction, Mild, nausea, 11/27/17) Home Medications Scheduled Allopurinol (Zyloprim), 300 MG PO QAM Amlodipine Besylate (Norvasc), 5 MG PO DAILY Aspirin Enteric Coated (Ecotrin Or Generic), 81 MG PO QAM Atorvastatin (Lipitor), 80 MG PO QAM Bumetanide (Bumex), 1.5 TAB PO QAM Bumetanide (Bumex), 1 TAB PO HS Gabapentin (Neurontin), 600 MG PO QAM Gabapentin (Neurontin), 900 MG PO HS Insulin Aspart (Novolog Penfill), 14 UNITS SQ QA Insulin Aspart (Novolog Penfill), 16 UNITS SQ LUNCH Insulin Aspart (Novolog Penfill), 18 UNITS SQ SUPPER Insulin Glargine (Lantus Solostar), 50 UNITS SQ QAM Insulin Glargine (Lantus Solostar), 30 UNITS SC QPM Lisinopril (Lisinopril), 5 MG PO QAM Nitroglycerin (Nitrostat), 0.4 MG UT PRN Potassium Chloride (Klor-Con M20), 20 MEQ PO BID Scheduled PRN Lorazepam (Lorazepam), 2 MG PO HS PRN for Sleep Nystatin (Nystop), 1 APPLN EXT PRN PRN for EXCORIATION Current Inpatient Medications Current Inpatient Medications Medications (Trade) Dose Ordered Sig/Claire Route Start Time Stop Time Status Last Admin Dose Admin Aspirin (Ecotrin Tab) 81 mg QAM PO 11/28/17 09:00 12/28/17 08:59 11/28/17 07:48 81 MG Lorazepam (Ativan Tab) 2 mg HS PRN PO 11/27/17 16:45 12/27/17 16:44 Glucose (Glucose 40% Gel) 15-30 GRAMS 15 GRAMS... UD PRN PO 11/27/17 17:00 12/27/17 16:59 Glucose (Glucose Chew Tab) 4-8 Tablets 4 Tabl... UD PRN PO 11/27/17 17:00 12/27/17 16:59 Dextrose (Dextrose 50% 50ML Syringe) 25-50ML OF 50% DW IV FOR... UD PRN IV 11/27/17 17:00 12/27/17 16:59 Glucagon (Glucagon Inj) 1 mg UD PRN SQ 11/27/17 17:00 12/27/17 16:59 Insulin Glargine (Lantus Solostar Pen) 30 units QPM SC 11/27/17 21:00 12/27/17 20:59 11/27/17 21:10 30 UNITS Sodium Chloride 1,000 ml @ 125 mls/hr Q8H IV 11/27/17 19:30 12/27/17 19:29 11/28/17 11:09 125 MLS/HR Insulin Glargine (Lantus Solostar Pen) 30 units QAM SQ 11/29/17 09:00 12/29/17 08:59 Insulin Aspart (novoLOG ASPART) SLIDING SCALE ACHS SC 11/28/17 11:00 12/28/17 10:59 11/28/17 11:58 7 UNITS Review of Systems Constitutional: No fever, No chills, No sweats, No weight loss, No weakness, No fatigue, No problem reported Eyes: No worsening of vision, No eye pain, No redness, No discharge, No diplopia, No problem reported ENT: No hearing loss, No unusual epistaxis, No nasal symptoms, No sore throat, No tinnitus, No dental problems, No trouble swallowing, No problem reported Cardiovascular: No chest pain, No orthopnea, No PND, No edema, No claudication , No palpitations, No problem reported Abdomen: No pain, No nausea, No vomiting, No diarrhea, No constipation, No GI bleeding, No problem reported Musculoskeletal: No joint pain, No muscle pain, No swelling, No calf pain, No problem reported Neurologic: No memory loss, No paralysis, No weakness, No numbness/tingling, No vertigo, No balance problems, No problem reported Psychiatric: No depression symptoms, No anhedonism, No anxiety, No insomnia, No substance abuse, No problem reported Endocrine: No fatigue, No excessive thirst, No excessive urination, No problem reported Hematologic / Lymphatic: No abnormal bleeding/bruising, No clotting problems, No swollen lymph nodes, No night sweats, No problem reported Physical Exam Date Time Temp Pulse Resp B/P (MAP) Pulse Ox O2 Delivery O2 Flow Rate FiO2 11/28/17 12:00 95 Room Air 11/28/17 11:48 37.1 86 20 115/69 (84) 99 11/28/17 08:00 95 Room Air 11/28/17 08:00 36.9 78 18 113/66 (82) 94 Room Air 11/28/17 04:34 36.8 74 22 112/73 (86) 95 Room Air 11/28/17 04:00 Room Air 11/27/17 23:59 Room Air 11/27/17 23:59 36.6 73 14 104/39 (60) 96 Room Air 11/27/17 23:59 36.6 73 14 104/39 (60) 96 Room Air 11/27/17 20:00 36.4 71 16 116/69 (85) 97 Room Air 11/27/17 20:00 Room Air 11/27/17 18:46 36.4 72 18 106/45 (65) 98 Room Air 11/27/17 18:28 70 18 132/57 96 11/27/17 17:11 43 16 11/27/17 16:41 44 20 11/27/17 16:14 44 20 103/92 96 Room Air 11/27/17 16:13 103/92 11/27/17 16:11 46 13 11/27/17 15:54 98 Room Air 11/27/17 15:41 47 19 11/27/17 14:41 44 13 95 11/27/17 14:35 51 11/27/17 14:31 115/61 11/27/17 14:30 50 20 115/61 98 Room Air General Appearance: WD/WN, no apparent distress Head: normocephalic Eyes: normal inspection ENT: normal ENT inspection Neck: supple, no JVD Respiratory/Chest: chest non-tender, lungs clear, normal breath sounds Cardiovascular: regular rate, rhythm, no edema, no gallop, no JVD Abdomen/GI: normal bowel sounds, non tender, soft, no organomegaly, no pulsatile mass Extremities/Musculoskelatal: normal inspection, no calf tenderness, normal capillary refill Neurologic/Psych: no motor/sensory deficits, alert, normal mood/affect Skin: normal color, warm/dry, no rash Laboratory Results Last 24 Hours Test 11/27/17 14:33 11/27/17 14:55 11/27/17 15:38 11/27/17 20:16 Urine Color DK YELLOW Urine Appearance CLOUDY Urine pH 5.0 Urine Specific [place] 1.023 Urine Protein TRACE Urine Glucose (UA) NEG Urine Ketones TRACE Urine Occult Blood NEG Urine Nitrite NEG Urine Bilirubin NEG Urine Urobilinogen NEG Urine Leukocyte Esterase TRACE Urine WBC (Auto) 1-5 /hpf Urine RBC (Auto) 5-10 /hpf Urine Hyaline Casts (Auto) >30 /lpf Urine Epithelial Cells (Auto) 20-30 /lpf Urine Bacteria (Auto) NEG Urine Pathogenic Casts 1-5 GRANULAR CASTS /lpf Potassium Level 5.0 mmol/L Magnesium Level 2.4 mg/dl Aspartate Amino Transf (AST/SGOT) 14 U/L Bedside Hemoglobin 12.2 g/dl Bedside Hematocrit 36 % Bedside Sodium 133 mEq/L Bedside Potassium 4.9 mEq/L Bedside Chloride 96 mEq/L Bedside Total CO2 26 mEq/l Anion Gap 17.0 mmol/L Bedside Blood Urea Nitrogen 120 mg/dl Bedside Creatinine 4.1 mg/dl Bedside Glucose (other) 163 mg/dl Bedside Ionized Calcium (Tesfaye) 1.22 mmol/l Bedside Glucose 128 mg/dl Test 11/27/17 21:57 11/28/17 06:42 11/28/17 07:09 11/28/17 11:29 Sodium Level 136 mmol/L 137 mmol/L Potassium Level 3.9 mmol/L 3.8 mmol/L Chloride Level 100 mmol/L 102 mmol/L Carbon Dioxide Level 26 mmol/L 25 mmol/L Anion Gap 10.0 mmol/L 9.0 mmol/L Blood Urea Nitrogen 100 mg/dl 96 mg/dl Creatinine 3.35 mg/dl 2.58 mg/dl Est Creatinine Clear Calc Drug Dose 17.3 ml/min 22.5 ml/min Estimated GFR () 14.7 20.1 Estimated GFR (Non- 12.7 17.4 BUN/Creatinine Ratio 30.0 37.2 Random Glucose 153 mg/dl 127 mg/dl Calcium Level 8.9 mg/dl 8.6 mg/dl Magnesium Level 2.2 mg/dl Total Bilirubin 0.4 mg/dl 0.4 mg/dl Aspartate Amino Transf (AST/SGOT) 17 U/L 18 U/L Alanine Aminotransferase (ALT/SGPT) 18 U/L 18 U/L Alkaline Phosphatase 49 U/L 48 U/L Total Protein 6.3 gm/dl 6.0 gm/dl Albumin 2.9 gm/dl 2.9 gm/dl Globulin 3.4 gm/dl 3.1 gm/dl Albumin/Globulin Ratio 0.8 0.9 Bedside Glucose 129 mg/dl 172 mg/dl White Blood Count 5.09 K/uL Red Blood Count 3.30 M/uL Hemoglobin 10.3 g/dL Hematocrit 31.8 % Mean Corpuscular Volume 96.4 fL Mean Corpuscular Hemoglobin 31.2 pg Mean Corpuscular Hemoglobin Concent 32.4 g/dl Platelet Count 122 K/uL Mean Platelet Volume 11.1 fL Neutrophils (%) (Auto) 77.2 % Lymphocytes (%) (Auto) 11.6 % Monocytes (%) (Auto) 7.9 % Eosinophils (%) (Auto) 2.9 % Basophils (%) (Auto) 0.2 % Neutrophils # (Auto) 3.93 K/uL Lymphocytes # (Auto) 0.59 K/uL Monocytes # (Auto) 0.40 K/uL Eosinophils # (Auto) 0.15 K/uL Basophils # (Auto) 0.01 K/uL RDW Standard Deviation 51.2 fL RDW Coefficient of Variation 14.8 % Immature Granulocyte % (Auto) 0.2 % Immature Granulocyte # (Auto) 0.01 K/uL Assessment & Plan U/S study-FINDINGS: The liver is mildly enlarged. No focal hepatic masses are visualized. No gallstones are visualized. There is gallbladder wall thickening/edema which measures up to 1 cm. There is trace pericholecystic fluid. Technologist reports a negative sonographic [place] sign. There is no ductal dilatation. The common bile duct measures 6 mm. The spleen measures 12 cm in length. The right kidney measures 12.1 cm in length. The left kidney measures 11.2 cm in length. There is no right-sided hydronephrosis. There is mild dilatation of the left renal pelvis. The proximal abdominal aorta appeared normal. The mid and distal abdominal aorta were not visualized. No abnormalities of the IVC were visualized. There are no bladder abnormalities. The study was mildly limited due to the patient's body habitus. IMPRESSION: 1. Gallbladder wall thickening/edema, measuring up to 1 cm. 2. No gallstones identified 3. Trace pericholecystic fluid 4. No evidence of ductal dilatation. 5. Mild fullness of the left renal pelvis CT scan-FINDINGS: Lower chest: There is mitral valve annulus calcification. There are coronary artery calcifications. There is no pericardial effusion. There are dependent atelectatic changes. Liver: No focal hepatic masses are visualized. The liver is mildly enlarged. The liver has a slightly nodular serosal surface. Gallbladder: No calculi are visualized. There is mild pericholecystic/periduodenal edema. Clinical correlation regards to cholecystitis is recommended. If desired a nuclear medicine hepatobiliary scan could be obtained to assess cystic duct patency. Spleen: Normal in size and attenuation. Pancreas: Unremarkable. Adrenal glands: Unremarkable. Kidneys: Bilateral calcifications are likely vascular. There is no hydronephrosis. No ureteral or bladder calculi are visualized. Bowel: There are no transition zones to indicate bowel obstruction. There is no acute diverticulitis. There are no findings to indicate acute appendicitis. The appendix is however not visualized with certainty. There is mild periduodenal edema. Peritoneum: There is no intraperitoneal free air or abdominal ascites. Vasculature: The abdominal aorta is normal in course and caliber. Adenopathy: There are mildly prominent lymph nodes at the level elina hepatis and SMA, likely reactive. Pelvic viscera: The bladder, and pelvic viscera are unremarkable. Skeletal structures: No destructive osseous lesions are seen. IMPRESSION: 1. No evidence of bowel obstruction. No evidence of free air 2. Mild pericholecystic/duodenal edema. Clinical correlation in regards to acute cholecystitis or duodenitis is recommended. Biliary ultrasonography might be considered in follow-up. Alternatively a nuclear medicine hepatobiliary scan could be obtained to assess cystic duct patency. Assessment: pt is a 77 year old female who was admitted to hospital for 2 weeks history epigastric discomfort, U/S and CT scan- possible cholecystitis, IMP: possible chronic cholecystitis, normal WBC, now no symptoms. I agree with GI recommend- HIDA scan, possible EGD to R/O duodenitis. will F/U Thanks,
--- NOTE | 2017-11-28 21:17 | DIAGNOSTIC IMAGING REPORT ---
NUCLEAR HEPATOBILIARY SCAN CLINICAL HISTORY: Gallbladder wall thickening. COMPARISON STUDY: Abdominal ultrasound dated 11/27/2017. TECHNIQUE: Dynamic images of the liver and anterior abdomen were obtained every 5 minutes for a total of 55 minutes following the IV administration of 5.3mCi of technetium 99m Choletec. FINDINGS: The hepatobiliary scan shows prompt and homogeneous hepatic uptake. There is visualized activity within the intra and extrahepatic biliary tree at 10 minutes, and within the gallbladder at 15 minutes. There is normal biliary to bowel transit, with small bowel visualized by 45 minutes. IMPRESSION: Unremarkable nuclear hepatobiliary scan. There is no scintigraphic evidence of cholecystitis. Electronically signed by: William Blair M.D. 11/28/2017 9:15 PM Dictated Date/Time: 11/28/2017 9:14 PM
--- NOTE | 2017-11-28 21:20 | Progress Note ---
Progress Note Date of Service Nov 28, 2017. Progress Note Subjective : Patient denies acute pain. No shortness of breath. Have advised patient that if she feels swelling of extremities or shortness of breath then she should let a nurse know because she is getting IV fluids and has history of cardiac diastolic dysfunction Physical Exam Acute renal failure with uremia on chronic CKD -Baseline creatinine has been 2.0, patient followed by [facility] urology Dr. Fountain -admission BUN 110, creatinine 4.15, repeat lab as BUN 110 and creatinine 4.1 -creatinine downtrending with IV fluids -11/28/17 AM labs with creatinine 2.58, IV fluids stopped at night on 11/28/17 to avoid fluid overload as patient has cardiac history and on lasix at home -monitor renal function with 11/29/17 AM labs and re-consider whether patient needs further IV fluids and when she can restart her home dose bumex diuretic for the history of chronic diastolic dysfunction with normal left ventricular systolic function Electrolytes -on potassium supplements at home due to diuretic use -admission potassium 5 -hospitalist has ordered Kayexalate as patient's serum potassium on upper ranges of normal and patient bradycardic in the ED with heart rate in the low 50s -patient to get insulin in the hospital also for diabetes which will also drive potassium intracellularly, give albuterol -bradycardia in the Emergency room, review of medications does not show Beta padma use (cardiology inpatient note in August 2017 discusses history junctional arrhythmias when on beta padma and that 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) Cardiac -History of coronary artery disease, status post percutaneous coronary intervention to the right coronary artery in 2001 with residual disease of the left anterior descending artery and diagonal: continue aspirin -severe mitral annular calcification as reported in August 2017 echocardiogram -Diastolic dysfunction with normal left ventricular systolic function - patient is not fluid overloaded at this time and in acute renal failure so will hold diuretics for now -bradycardia in the Emergency room, review of medications does not show Beta padma use (cardiology inpatient note in August 2017 discusses history junctional arrhythmias when on beta padma and that 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
[2017-11-28] MEDS: INSULIN GLARGINE SOLOSTAR 100 UNITS/ML 3 ML PEN SC SCH (21:40)
[2017-11-28] MEDS ORDERED: ACETAMINOPHEN 500 MG TAB PO PRN (22:00)
[2017-11-28] MEDS ORDERED: NURSING VERBAL MED ORDER ONE (22:00)
[2017-11-29] VITALS (7 sets, daily range): BP systolic 124–148; BP diastolic 56–76; PULSE 71–88; TEMP 36.8–37.1; O2SAT 93–97
[2017-11-29] MEDS: ONDANSETRON INJ 2 MG/ML 2 ML VIAL IV PRN ×2 (04:44→13:27)
[2017-11-29 08:04] LABS: BASO % 0.2 %; BASO ABS # 0.01 K/uL (0-0.2); EOS % 3.6 %; EOS ABS # 0.15 K/uL (0-0.5); HEMATOCRIT 31.4 % (37-47); HEMOGLOBIN 10.4 g/dL (12.0-16.0); LYMPH % 19.4 %; LYMPH ABS # 0.81 K/uL (1.2-3.4); MEAN CORPUSCULAR HEMOGLOBIN 31.8 pg (25-34); MEAN CORPUSCULAR HGB CONC 33.1 g/dl (32-36); MEAN PLATELET VOLUME 11.4 fL (7.4-10.4); MONO % 10.1 %; MONO ABS # 0.42 K/uL (0.11-0.59); NEUT % 66.7 %; NEUT ABS # 2.78 K/uL (1.4-6.5); PLATELET COUNT 132 K/uL (130-400); RED CELL DISTRIBUTION WIDTH SD 51.7 fL (36.4-46.3); WHITE BLOOD COUNT 4.17 K/uL (4.8-10.8)
[2017-11-29] MEDS: ASPIRIN 81 MG ECTAB PO SCH (08:13)
[2017-11-29 08:36] LABS: ALBUMIN 2.8 gm/dl (3.4-5.0); CREATININE 1.67 mg/dl (0.60-1.20); POTASSIUM 3.9 mmol/L (3.5-5.1); TOTAL PROTEIN 6.2 gm/dl (6.4-8.2)
--- NOTE | 2017-11-29 08:58 | Gastroenterology Progress Note ---
Progress Note Date of Service: Nov 29, 2017 Subjective Pt evaluation today including: conversation w/ patient, conversation w/ family , chart review, lab review Pt was seen and evaluated, chart reviewed. No acute events overnight. Did have some abd pain last evening, now resolving and mild again. Mild nausea, no vomiting. Tolerated 100% breakfast. No fever, chills, CP, SOB. HIDA 11/28/17: Unremarkable nuclear hepatobiliary scan. There is no scintigraphic evidence of cholecystitis. ABD US 11/27/17: Gallbladder wall thickening/edema, measuring up to 1 cm. No gallstones identified Trace pericholecystic fluid No evidence of ductal dilatation. Mild fullness of the left renal pelvis CT ABD 11/27/17: No evidence of bowel obstruction. No evidence of free air Mild pericholecystic/duodenal edema. Clinical correlation in regards to acute cholecystitis or duodenitis is recommended. Biliary ultrasonography might be considered in follow-up. Alternatively a nuclear medicine hepatobiliary scan could be obtained to assess cystic duct patency. Review of Systems Constitutional: No fever Respiratory: No cough, No shortness of breath Cardiac: No chest pain, No edema Abdomen: + pain, + nausea, No vomiting, No diarrhea, No constipation, No GI bleeding Medications Current Inpatient Medications Medications (Trade) Dose Ordered Sig/Claire Route Start Time Stop Time Status Last Admin Dose Admin Aspirin (Ecotrin Tab) 81 mg QAM PO 11/28/17 09:00 12/28/17 08:59 11/29/17 08:13 81 MG Lorazepam (Ativan Tab) 2 mg HS PRN PO 11/27/17 16:45 12/27/17 16:44 Glucose (Glucose 40% Gel) 15-30 GRAMS 15 GRAMS... UD PRN PO 11/27/17 17:00 12/27/17 16:59 Glucose (Glucose Chew Tab) 4-8 Tablets 4 Tabl... UD PRN PO 11/27/17 17:00 12/27/17 16:59 Dextrose (Dextrose 50% 50ML Syringe) 25-50ML OF 50% DW IV FOR... UD PRN IV 11/27/17 17:00 12/27/17 16:59 Glucagon (Glucagon Inj) 1 mg UD PRN SQ 11/27/17 17:00 12/27/17 16:59 Insulin Glargine (Lantus Solostar Pen) 30 units QPM SC 11/27/17 21:00 12/27/17 20:59 11/28/17 21:40 30 UNITS Insulin Glargine (Lantus Solostar Pen) 30 units QAM SQ 11/29/17 09:00 12/29/17 08:59 Insulin Aspart (novoLOG ASPART) SLIDING SCALE ACHS SC 11/28/17 11:00 12/28/17 10:59 11/28/17 21:40 2 UNITS Acetaminophen (Tylenol Tab) 1,000 mg Q8H PRN PO 11/28/17 22:00 12/28/17 21:59 11/28/17 23:07 1,000 MG Ondansetron HCl (Zofran Inj) 4 mg Q6H PRN IV 11/29/17 04:45 12/29/17 04:44 11/29/17 04:44 4 MG Objective Vital Signs Date Time Temp Pulse Resp B/P (MAP) Pulse Ox O2 Delivery O2 Flow Rate FiO2 11/29/17 04:00 Room Air 11/29/17 03:55 36.8 71 22 142/71 (94) 93 Room Air 11/29/17 00:00 Room Air 11/28/17 23:50 36.9 77 18 123/67 (85) 94 Room Air 11/28/17 20:00 Room Air 11/28/17 19:45 36.7 77 22 152/60 (90) 97 Room Air 11/28/17 16:00 Room Air 11/28/17 15:16 36.7 74 22 138/54 (82) 97 Room Air 11/28/17 12:00 95 Room Air 11/28/17 11:48 37.1 86 20 115/69 (84) 99 Physical Exam General Appearance: no apparent distress Eyes: PERRL ENT: hearing grossly normal Neck: supple, trachea midline Respiratory/Chest: lungs clear, normal breath sounds Cardiovascular: regular rate, rhythm Abdomen: soft, no organomegaly, no pulsatile mass, + tenderness (mild upper abdominal tenderness) Neurologic/Psych: alert, normal mood/affect, oriented x 3 Skin: normal color Laboratory Results Last 24 Hours Test 11/28/17 11:29 11/28/17 16:24 11/28/17 21:29 11/29/17 07:22 Bedside Glucose 172 mg/dl 170 mg/dl 174 mg/dl White Blood Count 4.17 K/uL Red Blood Count 3.27 M/uL Hemoglobin 10.4 g/dL Hematocrit 31.4 % Mean Corpuscular Volume 96.0 fL Mean Corpuscular Hemoglobin 31.8 pg Mean Corpuscular Hemoglobin Concent 33.1 g/dl Platelet Count 132 K/uL Mean Platelet Volume 11.4 fL Neutrophils (%) (Auto) 66.7 % Lymphocytes (%) (Auto) 19.4 % Monocytes (%) (Auto) 10.1 % Eosinophils (%) (Auto) 3.6 % Basophils (%) (Auto) 0.2 % Neutrophils # (Auto) 2.78 K/uL Lymphocytes # (Auto) 0.81 K/uL Monocytes # (Auto) 0.42 K/uL Eosinophils # (Auto) 0.15 K/uL Basophils # (Auto) 0.01 K/uL RDW Standard Deviation 51.7 fL RDW Coefficient of Variation 15.0 % Immature Granulocyte % (Auto) 0.0 % Immature Granulocyte # (Auto) 0.00 K/uL Sodium Level 142 mmol/L Potassium Level 3.9 mmol/L Chloride Level 108 mmol/L Carbon Dioxide Level 27 mmol/L Anion Gap 7.0 mmol/L Blood Urea Nitrogen 72 mg/dl Creatinine 1.67 mg/dl Est Creatinine Clear Calc Drug Dose 34.8 ml/min Estimated GFR () 34.1 Estimated GFR (Non- 29.4 BUN/Creatinine Ratio 42.9 Random Glucose 144 mg/dl Calcium Level 9.0 mg/dl Total Bilirubin 0.5 mg/dl Aspartate Amino Transf (AST/SGOT) 16 U/L Alanine Aminotransferase (ALT/SGPT) 18 U/L Alkaline Phosphatase 51 U/L Total Protein 6.2 gm/dl Albumin 2.8 gm/dl Globulin 3.4 gm/dl Albumin/Globulin Ratio 0.8 Assessment and Plan Patient is a 77 year old female w/ abd fullness x 2 weeks, decreased urine output x 48 hours admitted through the ED for ASPEN on CKD-V. CT imaging w/ mild pericholecystic/periduodenal edema. LFTs and lipase non-elevated, concern for acute cholecystitis. HIDA negative. General surgery was consulted in addition who feel she has chronic cholecystitis. She does not wish to undergo further testing or invasive procedures at this point unless urgently indicated. Kidney function slowly improving. - LFTs, Lipase normal - Can arrange OP EGD to rule out duodenitis if pt wishes - No GI role for ABX therapy - ASPEN on CKD per primary team - GI to sign off, please call with any questions or concerns.
[2017-11-29] MEDS ORDERED: INSULIN GLARGINE SOLOSTAR 100 UNITS/ML 3 ML PEN SQ SCH (09:00)
[2017-11-29] MEDS: INSULIN ASPART 100 UNITS/ML 3 ML PEN SC SCH ×4 (09:10→20:43)
--- NOTE | 2017-11-29 09:29 | Progress Note ---
Medicine Progress Note Date & Time of Visit: Nov 29, 2017 at 09:08 . Subjective Feels better and hoping to go home soon. Has some epigastric discomfort last night; did not take any nitroglycerin or antacids. Intermittent dyspnea. Worsening dependent edema since diuretics held; hands feel puffy as well. No nausea or vomiting. Still has Nicolas catheter. Daughter visiting. . Objective Last 8 Hrs Date Time Temp Pulse Resp B/P (MAP) Pulse Ox O2 Delivery O2 Flow Rate FiO2 11/29/17 08:00 93 Room Air 11/29/17 04:00 Room Air 11/29/17 03:55 36.8 71 22 142/71 (94) 93 Room Air Physical Exam: General- sitting in chair at bedside; no distress Lungs- clear to auscultation; no respiratory distress Cardiovascular- RRR; II/ systolic murmur LSB; no gallop appreciated; + JVD; 3 + pretibial edema Abdomen- + bowel sounds, soft, nontender Extremities- no cyanosis; no calf tenderness Neuro- alert, oriented Skin- warm & dry . Laboratory Results: Last 24 Hours Test 11/28/17 11:29 11/28/17 16:24 11/28/17 21:29 11/29/17 07:22 Bedside Glucose 172 mg/dl 170 mg/dl 174 mg/dl White Blood Count 4.17 K/uL Red Blood Count 3.27 M/uL Hemoglobin 10.4 g/dL Hematocrit 31.4 % Mean Corpuscular Volume 96.0 fL Mean Corpuscular Hemoglobin 31.8 pg Mean Corpuscular Hemoglobin Concent 33.1 g/dl Platelet Count 132 K/uL Mean Platelet Volume 11.4 fL Neutrophils (%) (Auto) 66.7 % Lymphocytes (%) (Auto) 19.4 % Monocytes (%) (Auto) 10.1 % Eosinophils (%) (Auto) 3.6 % Basophils (%) (Auto) 0.2 % Neutrophils # (Auto) 2.78 K/uL Lymphocytes # (Auto) 0.81 K/uL Monocytes # (Auto) 0.42 K/uL Eosinophils # (Auto) 0.15 K/uL Basophils # (Auto) 0.01 K/uL RDW Standard Deviation 51.7 fL RDW Coefficient of Variation 15.0 % Immature Granulocyte % (Auto) 0.0 % Immature Granulocyte # (Auto) 0.00 K/uL Sodium Level 142 mmol/L Potassium Level 3.9 mmol/L Chloride Level 108 mmol/L Carbon Dioxide Level 27 mmol/L Anion Gap 7.0 mmol/L Blood Urea Nitrogen 72 mg/dl Creatinine 1.67 mg/dl Est Creatinine Clear Calc Drug Dose 34.8 ml/min Estimated GFR () 34.1 Estimated GFR (Non- 29.4 BUN/Creatinine Ratio 42.9 Random Glucose 144 mg/dl Calcium Level 9.0 mg/dl Total Bilirubin 0.5 mg/dl Aspartate Amino Transf (AST/SGOT) 16 U/L Alanine Aminotransferase (ALT/SGPT) 18 U/L Alkaline Phosphatase 51 U/L Total Protein 6.2 gm/dl Albumin 2.8 gm/dl Globulin 3.4 gm/dl Albumin/Globulin Ratio 0.8 Assessment & Plan CORONARY ARTERY DISEASE History of coronary artery disease, status post PCI of right coronary artery in 2001. Experiencing epigastric discomfort and dyspnea which may or may not represent myocardial ischemia. Initial EKG showed junctional rhythm in the 40s associated with borderline hyperkalemia; subsequently in sinus rhythm. Troponin at time of admission was 0.02. Continue aspirin. Not on beta-padma secondary to junctional rhythms. Continue statin. Consult Cardiology for their input. PROBABLE CHF Chronic lower extremity edema. Chest x-ray showed cardiomegaly, mild interstitial prominence (?CHF). Echocardiogram performed on demonstrated mild concentric LVH, normal left ventricular wall motion and function with LVEF of 60-65%, grade 1 diastolic dysfunction, mild mitral regurgitation, normal right ventricular dimensions and systolic function. May have underlying sleep apnea and/or obesity hypoventilation syndrome. May have chronic left ventricular diastolic heart failure, perhaps with a component of right-sided failure as well. Diuretics on hold due to acute kidney injury. Follow exam, weights, labs and titrate diuretic therapy. JUNCTIONAL BRADYCARDIA Initial EKG showed junctional rhythm in the 40s associated with borderline hyperkalemia; subsequently in sinus rhythm. Prior history of junctional rhythm while taking beta-padma. Patient is currently in sinus rhythm, but at risk for recurrent bradycardia arrhythmias. Consult Cardiology for their input. POSSIBLE SLEEP APNEA Patient has advised to have outpatient polysomnography performed in the past, but has declined because she does not want to wear CPAP or BiPAP. Importance of diagnosing and treating sleep apnea and/or obesity hypoventilation syndrome discussed. ACUTE KIDNEY INJURY / CHRONIC KIDNEY DISEASE STAGE IV CKD IV with baseline creatinine of 2, followed by Dr. Fountain. Serum creatinine on admission was 4.15. Nephrology consulted. Diuretics held. Serum creatinine today = 1.67. Resume diuretic therapy when able. NICOLAS CATHETER Nicolas catheter inserted for monitoring urine output. Remove when able. ? HEPATOBILIARY DISEASE Patient experiencing intermittent epigastric discomfort and abdominal bloating. LFTs and lipase were normal at the time of admission. General Surgery and Gastroenterology consulted. CT of abdomen and pelvis showed mild pericholecystic/duodenal edema, no apparent cholelithiasis or choledocholithiasis, no bowel obstruction or free air. Ultrasound of abdomen demonstrated thickening of gallbladder wall, no cholelithiasis or choledocholithiasis, trace pericholecystic fluid, no ductal dilatation, mild fullness of left renal pelvis. HIDA scan did not show any evidence of cholecystitis. DM TYPE 2 History of diabetes mellitus type 2 on insulin therapy. Random glucose of the time of admission was 196. Continue Lantus / NovoLog per protocol. MORBID OBESITY Weight 117 kg, BMI 47. AHA, diabetic diet. VTE PROPHYLAXIS SCD's ordered. Add enoxaparin if no invasive procedures are planned. Ambulate. DISPOSITION Expected discharge to home. Family Medicine follow-up with Dr. Dangelo. Cardiology follow-up with Mike Lira PA-C. Nephrology follow-up with Dr. Fountain. Daughter visiting and given update. . Current Inpatient Medications: Current Inpatient Medications Medications (Trade) Dose Ordered Sig/Claire Route Start Time Stop Time Status Last Admin Dose Admin Aspirin (Ecotrin Tab) 81 mg QAM PO 11/28/17 09:00 12/28/17 08:59 11/29/17 08:13 81 MG Lorazepam (Ativan Tab) 2 mg HS PRN PO 11/27/17 16:45 12/27/17 16:44 Glucose (Glucose 40% Gel) 15-30 GRAMS 15 GRAMS... UD PRN PO 11/27/17 17:00 12/27/17 16:59 Glucose (Glucose Chew Tab) 4-8 Tablets 4 Tabl... UD PRN PO 11/27/17 17:00 12/27/17 16:59 Dextrose (Dextrose 50% 50ML Syringe) 25-50ML OF 50% DW IV FOR... UD PRN IV 11/27/17 17:00 12/27/17 16:59 Glucagon (Glucagon Inj) 1 mg UD PRN SQ 11/27/17 17:00 12/27/17 16:59 Insulin Glargine (Lantus Solostar Pen) 30 units QPM SC 11/27/17 21:00 12/27/17 20:59 11/28/17 21:40 30 UNITS Insulin Glargine (Lantus Solostar Pen) 30 units QAM SQ 11/29/17 09:00 12/29/17 08:59 Insulin Aspart (novoLOG ASPART) SLIDING SCALE ACHS SC 11/28/17 11:00 12/28/17 10:59 11/28/17 21:40 2 UNITS Acetaminophen (Tylenol Tab) 1,000 mg Q8H PRN PO 11/28/17 22:00 12/28/17 21:59 11/28/17 23:07 1,000 MG Ondansetron HCl (Zofran Inj) 4 mg Q6H PRN IV 11/29/17 04:45 12/29/17 04:44 11/29/17 04:44 4 MG
--- NOTE | 2017-11-29 10:46 | Nephrology Progress Note ---
Nephrology Progress Note Date of Service Nov 29, 2017. Chief Complaint Acute on chronic kidney disease Subjective Ms. Gonzalez was seen and examined in the PCU this morning. Her daughter was present at the time of my evaluation. Ms. Gonzalez denies angina, palpitations or dyspnea. She notes that her legs are again becoming swollen. IVF have been stopped. She reports good UO without diuretic therapy. Review of Systems Constitutional: No fever Cardiovascular: No angina, No palpitations Respiratory: No dyspnea at rest Abdomen: No pain, No nausea, No vomiting Extremities: + leg edema A complete review of systems was performed. Pertinent positives are noted above. All other systems are negative. Vital Signs Last 8 Hrs Date Time Temp Pulse Resp B/P (MAP) Pulse Ox O2 Delivery O2 Flow Rate FiO2 11/29/17 08:00 36.9 72 18 124/58 (80) 96 11/29/17 08:00 93 Room Air 11/29/17 04:00 Room Air 11/29/17 03:55 36.8 71 22 142/71 (94) 93 Room Air Last Recorded Weight Weight (Kilograms): 117.000 Physical Exam General Appearance: no apparent distress, + obese Head: normocephalic, atraumatic Eyes: PERRL, EOMI Neck: no adenopathy Respiratory/Chest: lungs clear, no respiratory distress Cardiovascular: regular rate, rhythm Abdomen/GI: normal bowel sounds, non tender, soft Genitourinary - Female: + pertinent finding (garcia catheter in place draining clear yellow urine) Extremities/Musculoskelatal: + pertinent finding (trace pretibial pitting edema ) Neurologic/Psych: alert, oriented x 3 Family History Diabetes mellitus FH: CAD (coronary artery disease) Hypertension Stroke Negative for CKD/ESRD Social History Smoking Status: Never smoker Smokeless Tobacco Use: No Alcohol Use: none Drug Use: none Marital Status: Housing Status: lives alone Occupation: retired . Retired. Never a smoker Laboratory Results Past 24 Hours 11/29/17 07:22 Red Blood Count 3.27, Mean Corpuscular Volume 96.0, Mean Corpuscular Hemoglobin 31.8, Mean Corpuscular Hemoglobin Concent 33.1, Mean Platelet Volume 11.4, Neutrophils (%) (Auto) 66.7, Lymphocytes (%) (Auto) 19.4, Monocytes (%) (Auto) 10.1, Eosinophils (%) (Auto) 3.6, Basophils (%) (Auto) 0.2, Neutrophils # (Auto ) 2.78, Lymphocytes # (Auto) 0.81, Monocytes # (Auto) 0.42, Eosinophils # (Auto ) 0.15, Basophils # (Auto) 0.01 11/29/17 07:22 Test 11/28/17 11:29 11/28/17 16:24 11/28/17 21:29 11/29/17 07:22 Bedside Glucose 172 mg/dl (70-90) 170 mg/dl (70-90) 174 mg/dl (70-90) White Blood Count 4.17 K/uL (4.8-10.8) Red Blood Count 3.27 M/uL (4.2-5.4) Hemoglobin 10.4 g/dL (12.0-16.0) Hematocrit 31.4 % (37-47) Mean Corpuscular Volume 96.0 fL (80-100) Mean Corpuscular Hemoglobin 31.8 pg (25-34) Mean Corpuscular Hemoglobin Concent 33.1 g/dl (32-36) Platelet Count 132 K/uL (130-400) Mean Platelet Volume 11.4 fL (7.4-10.4) Neutrophils (%) (Auto) 66.7 % Lymphocytes (%) (Auto) 19.4 % Monocytes (%) (Auto) 10.1 % Eosinophils (%) (Auto) 3.6 % Basophils (%) (Auto) 0.2 % Neutrophils # (Auto) 2.78 K/uL (1.4-6.5) Lymphocytes # (Auto) 0.81 K/uL (1.2-3.4) Monocytes # (Auto) 0.42 K/uL (0.11-0.59) Eosinophils # (Auto) 0.15 K/uL (0-0.5) Basophils # (Auto) 0.01 K/uL (0-0.2) RDW Standard Deviation 51.7 fL (36.4-46.3) RDW Coefficient of Variation 15.0 % (11.5-14.5) Immature Granulocyte % (Auto) 0.0 % Immature Granulocyte # (Auto) 0.00 K/uL (0.00-0.02) Anion Gap 7.0 mmol/L (3-11) Est Creatinine Clear Calc Drug Dose 34.8 ml/min Estimated GFR () 34.1 Estimated GFR (Non- 29.4 BUN/Creatinine Ratio 42.9 (10-20) Calcium Level 9.0 mg/dl (8.5-10.1) Total Bilirubin 0.5 mg/dl (0.2-1) Aspartate Amino Transf (AST/SGOT) 16 U/L (15-37) Alanine Aminotransferase (ALT/SGPT) 18 U/L (12-78) Alkaline Phosphatase 51 U/L (45-117) Total Protein 6.2 gm/dl (6.4-8.2) Albumin 2.8 gm/dl (3.4-5.0) Globulin 3.4 gm/dl (2.5-4.0) Albumin/Globulin Ratio 0.8 (0.9-2) Allergies Coded Allergies: Sulfamethoxazole w/Trimethoprim (Verified Allergy, Unknown, RASH, 11/27/17) Codeine (Verified Adverse Reaction, Mild, nausea, 11/27/17) Medications Current Inpatient Medications Medications (Trade) Dose Ordered Sig/Claire Route Start Time Stop Time Status Last Admin Dose Admin Aspirin (Ecotrin Tab) 81 mg QAM PO 11/28/17 09:00 12/28/17 08:59 11/29/17 08:13 81 MG Lorazepam (Ativan Tab) 2 mg HS PRN PO 11/27/17 16:45 12/27/17 16:44 Glucose (Glucose 40% Gel) 15-30 GRAMS 15 GRAMS... UD PRN PO 11/27/17 17:00 12/27/17 16:59 Glucose (Glucose Chew Tab) 4-8 Tablets 4 Tabl... UD PRN PO 11/27/17 17:00 12/27/17 16:59 Dextrose (Dextrose 50% 50ML Syringe) 25-50ML OF 50% DW IV FOR... UD PRN IV 11/27/17 17:00 12/27/17 16:59 Glucagon (Glucagon Inj) 1 mg UD PRN SQ 11/27/17 17:00 12/27/17 16:59 Insulin Glargine (Lantus Solostar Pen) 30 units QPM SC 11/27/17 21:00 5/8/18 20:59 11/28/17 21:40 30 UNITS Insulin Glargine (Lantus Solostar Pen) 30 units QAM SQ 11/29/17 09:00 12/29/17 08:59 11/29/17 09:11 30 UNITS Insulin Aspart (novoLOG ASPART) SLIDING SCALE ACHS SC 11/28/17 11:00 12/28/17 10:59 11/29/17 09:10 5 UNITS Acetaminophen (Tylenol Tab) 1,000 mg Q8H PRN PO 11/28/17 22:00 12/28/17 21:59 11/28/17 23:07 1,000 MG Ondansetron HCl (Zofran Inj) 4 mg Q6H PRN IV 11/29/17 04:45 12/29/17 04:44 11/29/17 04:44 4 MG Enoxaparin Sodium (Lovenox Inj) 40 mg HS SQ 11/29/17 21:00 12/29/17 20:59 Impression (1) Acute tubular necrosis (2) Chronic kidney disease, stage IV (severe) (3) Morbid obesity (4) Diabetes mellitus type 2 (5) Benign hypertension (6) Coronary artery disease (7) Lymphedema ATN due to dehydration in the setting of ELIZABETH inhibitor therapy HIDA scan was negative for obstruction of GB Recommendations ACUTE KIDNEY INJURY: -- Resolved. -- Will d/c Garcia catheter CHRONIC KIDNEY DISEASE: -- Baseline creatinine has been 2.0 HYPERTENSION: -- Blood pressure is relatively low. Continue to hold Amlodipine -- Avoid Lisinopril due to recent ASPEN EDEMA: -- Patient had been on Bumex 1 mg 1/2 tablet po BID as an outpatient -- IVF has been stopped. Hold diuretic as patient is diuresing well on her own ANEMIA: -- Mild asymptomatic anemia. Hgb remains stable at 10.3. Will monitor GI: -- HIDA scan reviewed this am. No GB obstruction CV: -- Patient admitted w/ relative bradycardia. Awaiting Cardiology input
--- NOTE | 2017-11-29 10:47 | Surgery Progress Note ---
Surgery Progress Note Date of Service Nov 29, 2017. Subjective + feeling well pt is doing better, pt denies abdominal pain,no nausea, no vomiting, Objective Vital Signs: Date Time Temp Pulse Resp B/P (MAP) Pulse Ox O2 Delivery O2 Flow Rate FiO2 11/29/17 08:00 36.9 72 18 124/58 (80) 96 11/29/17 08:00 93 Room Air 11/29/17 04:00 Room Air 11/29/17 03:55 36.8 71 22 142/71 (94) 93 Room Air 11/29/17 00:00 Room Air 11/28/17 23:50 36.9 77 18 123/67 (85) 94 Room Air 11/28/17 20:00 Room Air 11/28/17 19:45 36.7 77 22 152/60 (90) 97 Room Air 11/28/17 16:00 Room Air 11/28/17 15:16 36.7 74 22 138/54 (82) 97 Room Air 11/28/17 12:00 95 Room Air 11/28/17 11:48 37.1 86 20 115/69 (84) 99 General Appearance: WD/WN, no apparent distress Head: normocephalic Neck: supple, no JVD Respiratory/Chest: chest non-tender, lungs clear Cardiovascular: regular rate, rhythm, no edema, no JVD, no murmur Abdomen: normal bowel sounds, non tender, non distended, soft, no organomegaly Extremities: normal range of motion, non-tender, normal inspection Laboratory Results: Results Past 24 Hours Test 11/28/17 11:29 11/28/17 16:24 11/28/17 21:29 11/29/17 07:22 Range/Units Bedside Glucose 172 170 174 70-90 mg/dl White Blood Count 4.17 4.8-10.8 K/uL Red Blood Count 3.27 4.2-5.4 M/uL Hemoglobin 10.4 12.0-16.0 g/dL Hematocrit 31.4 37-47 % Mean Corpuscular Volume 96.0 80-100 fL Mean Corpuscular Hemoglobin 31.8 25-34 pg Mean Corpuscular Hemoglobin Concent 33.1 32-36 g/dl Platelet Count 132 130-400 K/uL Mean Platelet Volume 11.4 7.4-10.4 fL Neutrophils (%) (Auto) 66.7 % Lymphocytes (%) (Auto) 19.4 % Monocytes (%) (Auto) 10.1 % Eosinophils (%) (Auto) 3.6 % Basophils (%) (Auto) 0.2 % Neutrophils # (Auto) 2.78 1.4-6.5 K/uL Lymphocytes # (Auto) 0.81 1.2-3.4 K/uL Monocytes # (Auto) 0.42 0.11-0.59 K/uL Eosinophils # (Auto) 0.15 0-0.5 K/uL Basophils # (Auto) 0.01 0-0.2 K/uL RDW Standard Deviation 51.7 36.4-46.3 fL RDW Coefficient of Variation 15.0 11.5-14.5 % Immature Granulocyte % (Auto) 0.0 % Immature Granulocyte # (Auto) 0.00 0.00-0.02 K/uL Sodium Level 142 136-145 mmol/L Potassium Level 3.9 3.5-5.1 mmol/L Chloride Level 108 98-107 mmol/L Carbon Dioxide Level 27 21-32 mmol/L Anion Gap 7.0 3-11 mmol/L Blood Urea Nitrogen 72 7-18 mg/dl Creatinine 1.67 0.60-1.20 mg/dl Est Creatinine Clear Calc Drug Dose 34.8 ml/min Estimated GFR () 34.1 Estimated GFR (Non- 29.4 BUN/Creatinine Ratio 42.9 10-20 Random Glucose 144 70-99 mg/dl Calcium Level 9.0 8.5-10.1 mg/dl Total Bilirubin 0.5 0.2-1 mg/dl Aspartate Amino Transf (AST/SGOT) 16 15-37 U/L Alanine Aminotransferase (ALT/SGPT) 18 12-78 U/L Alkaline Phosphatase 51 45-117 U/L Total Protein 6.2 6.4-8.2 gm/dl Albumin 2.8 3.4-5.0 gm/dl Globulin 3.4 2.5-4.0 gm/dl Albumin/Globulin Ratio 0.8 0.9-2 Assessment & Plan HIDA scan-FINDINGS: The hepatobiliary scan shows prompt and homogeneous hepatic uptake. There is visualized activity within the intra and extrahepatic biliary tree at 10 minutes, and within the gallbladder at 15 minutes. There is normal biliary to bowel transit, with small bowel visualized by 45 minutes. IMPRESSION: Unremarkable nuclear hepatobiliary scan. There is no scintigraphic evidence of cholecystitis. base on pt has no symptoms, no indication for cholecystectomy, I sign off today, please call if any questions or concern, F/U me in 2 weeks [phone]
--- NOTE | 2017-11-29 14:11 | Cardiology Consultation ---
Cardiology Consultation Date of Service Nov 29, 2017. (Catherine Lima PA-C) Cardiology Consultation Requesting provider: Dr. Jasso Attending White Work Cleaner: Dr. Wilson History of Present Illness: Anjali Gonzalez is a 77 year old female with complex PMH as detailed below. Multiple inpatient and outpatient records reviewed. She typically follows khurram Lira PA-C of [facility]. She was admitted to [place] 2 days ago for ASPEN wiht underlying CKD and borderline hyperkalemia. On admission EKG she was found to have junctional rhythm with a HR of 46 bpm. Her heart rates improved wiht administration of IV hydration, improvement in renal function and potassium levels. Since 11/28, she has remained in NSR without recurrent junctional or bradyarrhythmias. Yesterday patient noted worsening of her LE edema. IV fluids were stopped. Diuretics remain on hold due to ASPEN. nephrology following and levels back at baseline. she denies associated SOB. no chest pain. During admission she has also been evaluated for persistent nausea and epigastric pain for several weeks. There were concerns for cholecystis. Surgery consulted. Normal hida scan. No evidence of gallstones. At time of consult, patient feeling well. She adamantly denies recent episodes of dizziness or lightheadedness. No syncope or near syncope. no chest pain or SOB. No orthopnea, PND. Notes Le edema since admission with IV fluids and holding diuretics. Review of systems: See above for pertinent positives & negatives. A total of 10 systems reviewed and were otherwise negative. Past Medical History: 1. ASCVD with NSTEMI in May 2002. Diffuse mild atherosclerotic coronary artery disease by May 22, 2002 diagnostic cardiac catheterization by Dr. Tc Mike at [facility].Single discrete high grade obstruction of the mid RCA status post PCI at [facility] with a 4.0 x 38 mm Penta bare metal stent. Long 60% mid LAD stenosis extending into the origin of a large diagonal branch and narrowing it by 50%. 2. Diastolic dysfunction 3. Preserved LV systolic function 4. Hypertension 5. Dyslipidemia with optimal LDL goal of < 70 mg/dL 6. Type II diabetes mellitus with neuropathy 7. Chronic kidney disease followed by Dr. Fountain 8. 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 9. Obesity 10. History of gout 11. Chart history of anemia 12. Junctional rhythm, bradycardia in setting of hyperkalemia - Toprol XL 12.5 mg per day was discontinued in March, after the patient presented to [facility] following a fall felt to be secondary to over diuresis, acute on chronic renal dysfunction, creatinine was 2.8 on presentation. Junctional bradycardia observed in the setting of hyperkalemia. Past Surgical History: 1. Three prior C-sections 2. Sphincterotomy by Dr. Bradley in November 2006 3. 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 Prakash. 4. Elective right knee surgery in November 2011. Post knee surgery she was hospitalized at [facility] then [facility] secondary to symptomatic bradyarrhythmias in association with acute kidney injury and hyperkalemia that required dopamine with arrhythmias primarily responding to treatment of the hyperkalemia. There was concern for PE though suspicion is low at [facility] secondary to negative peripheral duplexes, no evidence of right heart strain on echo, and negative troponin. She was also treated with broad spectrum antibiotics to cover for possible sepsis. Family History: Mother with an OR at 68. Father with a CVA at 69. One brother from complications of diabetes. She has three sisters who are alive and well. Social History: Nonsmoker. No alcohol. No illegal drugs. . Three daughters. Review of patient's allergies indicates: Allergen Reactions Bactrim Rash Codeine Nausea. Other pain meds [place] Intolerance: Felodipine - fluid retention. Imdur - lightheadedness. Reported Home Medications Medications Dose Route/Sig Max Daily Dose Days Date Category Bumex (Bumetanide) 1 Mg Tab 1 Tab PO HS 90 11/27/17 Reported Bumex (Bumetanide) 1 Mg Tab 1.5 Tab PO QAM 90 11/27/17 Reported Norvasc (Amlodipine Besylate) 5 Mg Tab 5 Mg PO DAILY 11/27/17 Reported Nystop (Nystatin) 45 Appln/15 Gm Powd 1 Appln EXT PRN PRN 09/18/17 Rx Klor-Con M20 (Potassium Chloride) 20 Meq Tabcr 20 Meq PO BID 09/18/17 Rx Lisinopril 5 Mg Tab 5 Mg PO QAM 09/18/17 Rx Novolog Penfill (Insulin Aspart) 100 Unit/Ml Inj 18 Units SQ SUPPER 04/07/17 Reported Lorazepam 2 Mg Tab 2 Mg PO HS PRN 04/07/17 Reported Neurontin (Gabapentin) 300 Mg Cap 900 Mg PO HS 04/07/17 Reported Lantus Solostar (Insulin Glargine) 100 Unit/Ml Inj 30 Units SC QPM 04/07/17 Reported Lantus Solostar (Insulin Glargine) 100 Unit/Ml Inj 50 Units SQ QAM 04/07/17 Reported Novolog Penfill (Insulin Aspart) 100 Unit/Ml Inj 16 Units SQ LUNCH 04/07/17 Reported Novolog Penfill (Insulin Aspart) 100 Unit/Ml Inj 14 Units SQ QA 04/07/17 Reported Lipitor (Atorvastatin Calcium) 80 Mg Tab 80 Mg PO QAM 08/04/15 Reported Zyloprim (Allopurinol) 300 Mg Tab 300 Mg PO QAM 05/03/12 Reported Ecotrin Or Generic (Aspirin) 81 Mg Tab 81 Mg PO QAM 05/03/12 Reported Neurontin (Gabapentin) 300 Mg Cap 600 Mg PO QAM 05/03/12 Reported Nitrostat (Nitroglycerin) 0.4 Mg Tab 0.4 Mg UT PRN 05/03/12 Reported OBJECTIVE/PHYSICAL EXAMINATION: Last 8 Hrs Date Time Temp Pulse Resp B/P (MAP) Pulse Ox O2 Delivery O2 Flow Rate FiO2 11/29/17 12:12 37.1 88 22 131/76 (94) 95 11/29/17 12:00 93 Room Air 11/29/17 08:00 36.9 72 18 124/58 (80) 96 11/29/17 08:00 93 Room Air General: A&Ox3. NAD. Obese. HEENT: Normocephalic. Atraumatic. PER. Conjunctiva pink. Sclera clear. Neck: No carotid bruits. No overt JVD. Heart: Regular at 80 bpm. Soft systolic ejection murmur. No rub. No gallop. PMI is nondisplaced. Lungs: Diffuse rales anteriorly. No wheeze. No rhonchi Abdomen: +BS. Soft. Nontender. No masses or organomegaly. Extremities: 1-2+ edema suspected though difficult to discern with the legs wrapped to the knees. Limited neurological examination is without focal deficits. Pulses: radial=2/4, posterior tibial pulses were not appreciated. Data: Admission EKG on 11/27: Junctional rhythm at 46 bpm Abnormal ECG When compared with ECG of 18-SEP-2017 06:34, Junctional rhythm has replaced Ectopic atrial rhythm Vent. rate has decreased BY 25 BPM QT has shortened repeat EKG on 11/28 Normal sinus rhythm Normal ECG When compared with ECG of 27-NOV-2017 14:11, Sinus rhythm has replaced Junctional rhythm Vent. rate has increased BY 24 BPM QT has lengthened repeat EKG on 11/29: Normal sinus rhythm Normal ECG When compared with ECG of 28-NOV-2017 06:18, No significant change was found Telemetry reviewed in detail - Junctional/bradycardia noted on day of admission on 11/27. Since that time, no significant bradycardia or junctional rhythm noted. Imaging since admission: Hida Scan: IMPRESSION: Unremarkable nuclear hepatobiliary scan. There is no scintigraphic evidence of cholecystitis. Prior DATA: September 16, 2017 TTE Interpretation Summary ([facility], Dr. Phoenix): No significant change compared to previous study of 03/11/17. Normal LV chamber size with mild concentric LVH, sigmoid appearing septum. Normal LV systolic function, EF 60-65% . No segmental left ventricular wall motion abnormalities are noted. Grade I diastolic dysfunction. Aortic valve sclerosis mild, without significant aortic valvular stenosis. Mild aortic regurgitation. Severe MAC with mild mitral regurgitation. Moderate left atrial enlargement. March 11, 2017 TTE Interpretation Summary (as per Dr. Wilson): The LV wall thickness is moderately increased (concentric). The basal septum is thickened and angulated consistent with sigmoid septum. The qualitative LV ejection fraction is 55-59% (normal). The right ventricular systolic function is normal as assessed by tricuspid annular plane systolic excursion (TAPSE) (normal >1.7 cm). The left atrium is moderately enlarged. The right atrial size is normal. There is severe mitral annular calcification. Mild mitral regurgitation is present. Mild aortic valve sclerosis is present. Mild aortic valve regurgitation is present. February 2017 Holter (on Toprol XL 12.5 mg/day): Dominant rhythm - Sinus rhythm. Average heart rate 64 bpm. Minimum heart rate 45 bpm. Maximum heart rate 116 bpm. PACs - moderate in frequency. PVCs - Frequent , including 3,400 isolated PVCs, 35 ventricular couplets, 3 runs of ventricular bigeminy, and 2 ventricular run of 3 beats in duration each with rates of 122 and 136 bpm. Symptoms - none reported. ASSESSMENT: 77 year old female 1. Junctional rhythm, in setting of ASPEN with borderline hyperkalemia. This was noted during prior admissions as well. She had no symptoms at the time of arrhythmia. Since renal function/electrolytes have improved, there has been no recurrence of bradyarrhythmias on telemetry. 2. chronic diastolic HF - LE edema noted today without specific 3. ASPEN with underlying CKD followed by Dr. Fountain. Resume diuretics, when ok with nephro. 4. History fo hyperkalemia - monitor closely. 4. History of CAD - no anginal symptoms. RECOMMENDATIONS/PLAN: Recommend arranging outpatient ZIO monitor for 2 weeks to monitor for junctional bradyarrhythmias or other high degree AV block. She is currently asymptomatic. Resume diuretic therapy when acceptable by nephrology. Continue all other cardiac medications. Case discussed with Dr. Wilson. (Catherine Lima PA-C) CARDIOLOGY ATTENDING ADDENDUM: The patient was seen and personally examined. Agree with Catherine Lima PA-C's findings and plans as documented above. The patient had an episode of junctional rhythm when presenting to ED during renal failure and electrolyte abnormalities. No additional arrhythmias after admission and correction. At this time I would recommend ZIO monitor after discharge. No pacemaker at this time. (Ross Wilson, DO)
[2017-11-29 14:55] LABS: PTT PATIENT 25.2 SECONDS (21.0-31.0)
[2017-11-29] MEDS ORDERED: PANTOprazole INJ 40 MG in SYRINGE 0 ML IV ONE (15:45)
[2017-11-29] MEDS: ALUMINUM/MAGNESIUM/SIMETH (MAALOX MAX) 30 ML UDC PO PRN ×2 (15:59→21:48)
[2017-11-29] MEDS ORDERED: POLYETHYLENE (MIRALAX) 17 GM PACK PO ONE (16:52)
[2017-11-29] MEDS ORDERED: POLYETHYLENE (MIRALAX) 17 GM PACK PO PRN (17:00)
[2017-11-29] MEDS: ENOXAPARIN 40 MG/0.4 ML SYR SQ SCH (20:41)
[2017-11-29] MEDS: DOCUSATE SODIUM/SENNA 50/8.6MG TAB PO SCH (20:41)
[2017-11-29] MEDS: INSULIN GLARGINE SOLOSTAR 100 UNITS/ML 3 ML PEN SC SCH (20:46)
[2017-11-29] MEDS: LORAZEPAM 2 MG TAB PO PRN (22:31)
[2017-11-30] VITALS (9 sets, daily range): BP systolic 106–152; BP diastolic 48–84; PULSE 64–73; TEMP 36.6–37.1; O2SAT 95–98; BMI 46.5
[2017-11-30] MEDS: INSULIN GLARGINE SOLOSTAR 100 UNITS/ML 3 ML PEN SC SCH ×2 (08:30→20:38)
[2017-11-30] MEDS: INSULIN ASPART 100 UNITS/ML 3 ML PEN SC SCH ×4 (08:30→20:34)
[2017-11-30] MEDS: PANTOprazole SOD 40 MG TAB PO SCH (08:31)
[2017-11-30] MEDS: ASPIRIN 81 MG ECTAB PO SCH (08:31)
[2017-11-30] MEDS: DOCUSATE SODIUM/SENNA 50/8.6MG TAB PO SCH ×2 (08:31→20:00)
[2017-11-30] MEDS: ALUMINUM/MAGNESIUM/SIMETH (MAALOX MAX) 30 ML UDC PO PRN (08:33)
[2017-11-30 08:41] LABS: CALCIUM 9.5 mg/dl (8.5-10.1); CREATININE 1.56 mg/dl (0.60-1.20); POTASSIUM 4.2 mmol/L (3.5-5.1)
[2017-11-30] MEDS ORDERED: BUMETANIDE 1 MG TAB PO ONE (09:00)
[2017-11-30 09:23] LABS: HEMOGLOBIN A1C 6.8 % (4.5-5.6)
--- NOTE | 2017-11-30 09:51 | Nephrology Progress Note ---
Nephrology Progress Note Date of Service Nov 30, 2017. Chief Complaint Acute on chronic kidney disease Subjective Ms. Gonzalez was seen & examined in the PCU this morning. Her daughter was present at bedside. Ms. Gonzalez reports that her LE swelling has quickly worsened while off diuretic therapy. Review of Systems Constitutional: No fever Cardiovascular: No chest pain Respiratory: No dyspnea at rest Abdomen: No pain, No nausea, No vomiting Extremities: + leg edema A complete review of systems was performed. Pertinent positives are noted above. All other systems are negative. Vital Signs Last 8 Hrs Date Time Temp Pulse Resp B/P (MAP) Pulse Ox O2 Delivery O2 Flow Rate FiO2 11/30/17 08:09 36.6 71 18 128/84 (99) 96 Room Air 11/30/17 04:00 Room Air 11/30/17 03:30 36.9 69 22 122/65 (84) 95 Room Air Last Recorded Weight Weight (Kilograms): 115.400 Physical Exam General Appearance: no apparent distress Head: normocephalic, atraumatic Eyes: PERRL, EOMI Neck: no adenopathy Respiratory/Chest: lungs clear, no respiratory distress Cardiovascular: regular rate, rhythm Abdomen/GI: normal bowel sounds, non tender, soft Extremities/Musculoskelatal: + swelling (2+ pretibial pitting edema) Neurologic/Psych: alert, oriented x 3 Family History Diabetes mellitus FH: CAD (coronary artery disease) Hypertension Stroke Negative for CKD/ESRD Social History Smoking Status: Never smoker Smokeless Tobacco Use: No Alcohol Use: none Drug Use: none Marital Status: Housing Status: lives alone Occupation: retired . Retired. Never a smoker Laboratory Results Past 24 Hours 11/30/17 07:55 Test 11/29/17 11:26 11/29/17 14:24 11/29/17 16:17 11/29/17 20:42 Bedside Glucose 247 mg/dl (70-90) 124 mg/dl (70-90) 112 mg/dl (70-90) Prothrombin Time 10.7 SECONDS (9.0-12.0) Prothromb Time International Ratio 1.0 (0.9-1.1) Activated Partial Thromboplast Time 25.2 SECONDS (21.0-31.0) Partial Thromboplastin Ratio 1.0 Test 11/30/17 07:11 11/30/17 07:55 Bedside Glucose 113 mg/dl (70-90) Anion Gap 6.0 mmol/L (3-11) Est Creatinine Clear Calc Drug Dose 36.9 ml/min Estimated GFR () 37.0 Estimated GFR (Non- 31.9 BUN/Creatinine Ratio 35.7 (10-20) Estimated Average Glucose 148 mg/dl Hemoglobin A1c 6.8 % (4.5-5.6) Calcium Level 9.5 mg/dl (8.5-10.1) Triglycerides Level 119 mg/dl (0-150) Cholesterol Level 107 mg/dl (0-200) HDL Cholesterol 40 mg/dl LDL Cholesterol, Calculated 43 mg/dl VLDL Cholesterol, Calculated 24 mg/dl Cholesterol/HDL Ratio 2.7 Allergies Coded Allergies: Sulfamethoxazole w/Trimethoprim (Verified Allergy, Unknown, RASH, 11/27/17) Codeine (Verified Adverse Reaction, Mild, nausea, 11/27/17) Medications Current Inpatient Medications Medications (Trade) Dose Ordered Sig/Claire Route Start Time Stop Time Status Last Admin Dose Admin Aspirin (Ecotrin Tab) 81 mg QAM PO 11/28/17 09:00 12/28/17 08:59 11/30/17 08:31 81 MG Lorazepam (Ativan Tab) 2 mg HS PRN PO 11/27/17 16:45 12/27/17 16:44 11/29/17 22:31 2 MG Glucose (Glucose 40% Gel) 15-30 GRAMS 15 GRAMS... UD PRN PO 11/27/17 17:00 12/27/17 16:59 Glucose (Glucose Chew Tab) 4-8 Tablets 4 Tabl... UD PRN PO 11/27/17 17:00 12/27/17 16:59 Dextrose (Dextrose 50% 50ML Syringe) 25-50ML OF 50% DW IV FOR... UD PRN IV 11/27/17 17:00 12/27/17 16:59 Glucagon (Glucagon Inj) 1 mg UD PRN SQ 11/27/17 17:00 12/27/17 16:59 Insulin Aspart (novoLOG ASPART) SLIDING SCALE ACHS SC 11/28/17 11:00 12/28/17 10:59 11/30/17 08:30 10 UNITS Acetaminophen (Tylenol Tab) 1,000 mg Q8H PRN PO 11/28/17 22:00 12/28/17 21:59 11/28/17 23:07 1,000 MG Ondansetron HCl (Zofran Inj) 4 mg Q6H PRN IV 11/29/17 04:45 12/29/17 04:44 11/29/17 13:27 4 MG Enoxaparin Sodium (Lovenox Inj) 40 mg HS SQ 11/29/17 21:00 12/29/17 20:59 11/29/17 20:41 40 MG Insulin Glargine (Lantus Solostar Pen) BSG LANTUS UNITS S... BID SC 11/29/17 21:00 12/29/17 20:59 11/30/17 08:30 25 UNITS Pantoprazole Sodium (Protonix Tab) 40 mg QAM PO 11/30/17 09:00 12/04/17 08:59 11/30/17 08:31 40 MG Al Hydrox/Mg Hydrox/Simethicone (Maalox Max Susp) 15 ml Q6H PRN PO 11/29/17 15:45 12/29/17 15:44 11/30/17 08:33 15 ML Senna/Docusate Sodium (Senokot S Tab) 2 tab BID PO 11/29/17 21:00 12/29/17 20:59 11/30/17 08:31 2 TAB Polyethylene (Miralax Powder Packet) 17 gm Q6H PRN PO 11/29/17 17:00 12/29/17 16:59 Impression (1) Acute tubular necrosis (2) Chronic kidney disease, stage IV (severe) (3) Morbid obesity (4) Diabetes mellitus type 2 (5) Benign hypertension (6) Coronary artery disease (7) Lymphedema ATN due to dehydration in the setting of ELIZABETH inhibitor therapy HIDA scan was negative for obstruction of GB Recommendations ACUTE KIDNEY INJURY: -- Resolved. CHRONIC KIDNEY DISEASE: -- Baseline creatinine has been 2.0 HYPERTENSION: -- Blood pressure is relatively low. Continue to hold Amlodipine -- Avoid Lisinopril due to recent ASPEN EDEMA: -- Will resume Bumex 1 mg po BID -- Monitor I&O's, weight and blood pressure ANEMIA: -- Mild asymptomatic anemia. Hgb remains stable at 10.3. Will monitor GI: -- HIDA scan 11/29: No GB obstruction CV: -- Cardiology note 11/29 reviewed: admission ECG w/ junctional bradycardia. Patient will be scheduled for 2 week Zio monitor
[2017-11-30] MEDS ORDERED: GABAPENTIN 300 MG CAP PO ONE (10:59)
--- NOTE | 2017-11-30 12:10 | Cardiology Follow-Up ---
Subjective General Date of Service: Nov 30, 2017. Chief Complaint: junctional bradycardia History of Present Illness Patient feeling relatively well today. Epigastric pain improved. Notes worsening LE edema since holding diuretics. Per neprhology, Ramónx resumed this AM. Denies associated chest pain or SOB. No dizziness. No palpitations or tachypalpitations. Telemetry reviewed - NSR, no significant bradyarrhythmias since day of admission. Allergies Coded Allergies: Sulfamethoxazole w/Trimethoprim (Verified Allergy, Unknown, RASH, 11/27/17) Codeine (Verified Adverse Reaction, Mild, nausea, 11/27/17) Social History Smoking Status: Never Smoker Hx Tobacco Use In Past Year?: No Hx Alcohol Use - Type And Amou: No Hx Substance Use - Type And Am: No Problem List Medical Problems: (1) Acute renal failure Status: Acute (2) Acute renal failure Status: Acute (3) Bradycardia Status: Acute (4) Epigastric abdominal pain Status: Acute (5) Hyperkalemia Status: Acute (6) Precordial chest pain Status: Acute (7) Weakness Status: Acute Review of Systems Respiratory: No cough, No wheezing, No shortness of breath, No dyspnea at rest , No hemoptysis Cardiac: + edema, No chest pain, No orthopnea, No PND, No palpitations Physical Exam Vital Signs Last Vital Signs Documentation Date Time Temp Pulse Resp B/P (MAP) Pulse Ox O2 Delivery O2 Flow Rate FiO2 11/30/17 11:37 36.7 73 19 140/48 (78) 97 Room Air Physical Exam Constitutional: General Apperance: obese Level of Distress: NAD Psychiatric: Mental Status: active & alert Orientation: to time, to place, to person Head: normocephalic Eyes: Pupils: PERRLA Neck: supple Lungs: Auscultation: no wheezing, no rales/crackles, deminished air movement Cardiovascular: Heart Auscultation: RRR, normal S1, normal S2, no murmurs Abdomen: Bowel Sounds: normal Inspection & Palpation: soft, non-distended Extremities: edema (2+ LE edema to knees) Assessment and Plan Assessment and Plan ASSESSMENT: 77 year old female 1. Junctional rhythm, in setting of ASPEN with borderline hyperkalemia. She had no symptoms at the time of arrhythmia. Since renal function/electrolytes have improved, there has been no recurrence of bradyarrhythmias on telemetry. 2. chronic diastolic HF - LE edema noted since holding diuretics. No other CHF symptoms. 3. ASPEN with underlying CKD followed by Dr. Fountain. Resume diuretics today 4. History fo hyperkalemia - monitor closely. 4. History of CAD - no anginal symptoms. RECOMMENDATIONS/PLAN: Bumex resumed today. Monitor edema and electrolytes. Cardiology office will contact patient to arrange 1 week Zio monitor to evaluate for further arrhythmias. She has a history of junctional bradycardia during times of ASPEN and hyperkalemia. She is asymptomatic. Continue all other cardiac medications. Patient has known appt on 12/28/17 at with Kj Lira PA-C. She wishes to keep this appt. Case discussed with Dr. Wilson. Will sign off. Please notify if there are additional questions or concerns. CARDIOLOGY ATTENDING ADDENDUM: The patient was seen and personally examined. Agree with Catherine Lima PA-C's findings and plans as documented above. I agree with discharge planning, outpatient follow-up and a monitor as an outpatient. Laboratory Results Last 24 Hours Test 11/29/17 14:24 11/29/17 16:17 11/29/17 20:42 11/30/17 07:11 Prothrombin Time 10.7 SECONDS Prothromb Time International Ratio 1.0 Activated Partial Thromboplast Time 25.2 SECONDS Partial Thromboplastin Ratio 1.0 Bedside Glucose 124 mg/dl 112 mg/dl 113 mg/dl Test 11/30/17 07:55 Sodium Level 143 mmol/L Potassium Level 4.2 mmol/L Chloride Level 109 mmol/L Carbon Dioxide Level 28 mmol/L Anion Gap 6.0 mmol/L Blood Urea Nitrogen 56 mg/dl Creatinine 1.56 mg/dl Est Creatinine Clear Calc Drug Dose 36.9 ml/min Estimated GFR () 37.0 Estimated GFR (Non- 31.9 BUN/Creatinine Ratio 35.7 Random Glucose 126 mg/dl Estimated Average Glucose 148 mg/dl Hemoglobin A1c 6.8 % Calcium Level 9.5 mg/dl Triglycerides Level 119 mg/dl Cholesterol Level 107 mg/dl HDL Cholesterol 40 mg/dl LDL Cholesterol, Calculated 43 mg/dl VLDL Cholesterol, Calculated 24 mg/dl Cholesterol/HDL Ratio 2.7
[2017-11-30] MEDS: BUMETANIDE 1 MG TAB PO SCH (16:20)
[2017-11-30] MEDS: ENOXAPARIN 40 MG/0.4 ML SYR SQ SCH (20:01)
[2017-11-30] MEDS ORDERED: GABAPENTIN 300 MG CAP PO SCH (21:00)
--- NOTE | 2017-11-30 22:12 | Progress Note ---
Medicine Progress Note Date & Time of Visit: Nov 30, 2017 at 10:40 . Subjective Feels better. No further epigastric discomfort. No nausea vomiting. Afebrile. No chest pain. No shortness of breath. Bal catheter removed. . Objective Last 8 Hrs Date Time Temp Pulse Resp B/P (MAP) Pulse Ox O2 Delivery O2 Flow Rate FiO2 11/30/17 20:19 36.7 70 18 147/74 (98) 98 Room Air 11/30/17 16:10 98 Room Air 11/30/17 15:51 36.7 73 18 152/57 (88) 98 Room Air Physical Exam: General- sitting in chair at bedside; no distress Lungs- clear to auscultation; no respiratory distress Cardiovascular- RRR; II/ systolic murmur LSB; no gallop appreciated; + JVD; 3 + pretibial edema Abdomen- + bowel sounds, soft, nontender Extremities- no cyanosis; no calf tenderness Neuro- alert, oriented Skin- warm & dry . Laboratory Results: Last 24 Hours Test 11/30/17 07:11 11/30/17 07:55 11/30/17 11:42 11/30/17 16:33 Bedside Glucose 113 mg/dl 106 mg/dl 104 mg/dl Sodium Level 143 mmol/L Potassium Level 4.2 mmol/L Chloride Level 109 mmol/L Carbon Dioxide Level 28 mmol/L Anion Gap 6.0 mmol/L Blood Urea Nitrogen 56 mg/dl Creatinine 1.56 mg/dl Est Creatinine Clear Calc Drug Dose 36.9 ml/min Estimated GFR () 37.0 Estimated GFR (Non- 31.9 BUN/Creatinine Ratio 35.7 Random Glucose 126 mg/dl Estimated Average Glucose 148 mg/dl Hemoglobin A1c 6.8 % Calcium Level 9.5 mg/dl Triglycerides Level 119 mg/dl Cholesterol Level 107 mg/dl HDL Cholesterol 40 mg/dl LDL Cholesterol, Calculated 43 mg/dl VLDL Cholesterol, Calculated 24 mg/dl Cholesterol/HDL Ratio 2.7 Test 11/30/17 20:14 Bedside Glucose 135 mg/dl Assessment & Plan ACUTE KIDNEY INJURY / CHRONIC KIDNEY DISEASE STAGE IV CKD IV with baseline creatinine of 2, followed by Dr. Fountain. Serum creatinine on admission was 4.15. Nephrology consulted. Diuretics held. Serum creatinine today = 1.56. Resumed diuretic therapy. Avoid NSAID's. Follow. CORONARY ARTERY DISEASE History of coronary artery disease, status post PCI of right coronary artery in 2001. Was experiencing epigastric discomfort and dyspnea which may or may not represent myocardial ischemia. Initial EKG showed junctional rhythm in the 40s associated with borderline hyperkalemia; subsequently in sinus rhythm. Troponin at time of admission was 0.02. Continue aspirin. Not on beta-padma secondary to junctional rhythms. Continue statin. PROBABLE CHF Chest x-ray showed cardiomegaly, mild interstitial prominence (?CHF). Echocardiogram performed on 09/16/17 demonstrated mild concentric LVH, normal left ventricular wall motion and function with LVEF of 60-65%, grade 1 diastolic dysfunction, mild mitral regurgitation, normal right ventricular dimensions and systolic function. May have underlying sleep apnea and/or obesity hypoventilation syndrome. Probable chronic left ventricular diastolic heart failure, perhaps with a component of right-sided failure as well. Diuretics held due to acute kidney injury. Renal function improved and diuretic therapy being resumed. Follow exam, weights, labs and titrate diuretic therapy. JUNCTIONAL BRADYCARDIA Initial EKG showed junctional rhythm in the 40s associated with borderline hyperkalemia; subsequently in sinus rhythm. Prior history of junctional rhythm while taking beta-padma. Patient is currently in sinus rhythm, but at risk for recurrent bradycardia arrhythmias. Cardiology consulted for their input. No need for pacemaker at this time. Outpatient cardiac monitoring recommended. POSSIBLE SLEEP APNEA Patient has advised to have outpatient polysomnography performed in the past, but has declined because she does not want to wear CPAP or BiPAP. Importance of diagnosing and treating sleep apnea and/or obesity hypoventilation syndrome discussed. ? HEPATOBILIARY DISEASE Patient experiencing intermittent epigastric discomfort and abdominal bloating. LFTs and lipase were normal at the time of admission. General Surgery and Gastroenterology consulted. CT of abdomen and pelvis showed mild pericholecystic/duodenal edema, no apparent cholelithiasis or choledocholithiasis, no bowel obstruction or free air. Ultrasound of abdomen demonstrated thickening of gallbladder wall, no cholelithiasis or choledocholithiasis, trace pericholecystic fluid, no ductal dilatation, mild fullness of left renal pelvis. HIDA scan did not show any evidence of cholecystitis. No need for surgical intervention at this time. DM TYPE 2 History of diabetes mellitus type 2 on insulin therapy. Random glucose of the time of admission was 113. Continue Lantus / NovoLog per protocol. MORBID OBESITY Weight 117 kg, BMI 47. AHA, diabetic diet. VTE PROPHYLAXIS SCD's ordered. Enoxaparin added. Ambulate. DISPOSITION Expected discharge to home. Family Medicine follow-up with Dr. Dangelo. Cardiology follow-up with Mike Lira PA-C. Nephrology follow-up with Dr. Fountain. . Current Inpatient Medications: Current Inpatient Medications Medications (Trade) Dose Ordered Sig/Claire Route Start Time Stop Time Status Last Admin Dose Admin Aspirin (Ecotrin Tab) 81 mg QAM PO 11/28/17 09:00 12/28/17 08:59 11/30/17 08:31 81 MG Lorazepam (Ativan Tab) 2 mg HS PRN PO 11/27/17 16:45 12/27/17 16:44 11/29/17 22:31 2 MG Glucose (Glucose 40% Gel) 15-30 GRAMS 15 GRAMS... UD PRN PO 11/27/17 17:00 12/27/17 16:59 Glucose (Glucose Chew Tab) 4-8 Tablets 4 Tabl... UD PRN PO 11/27/17 17:00 12/27/17 16:59 Dextrose (Dextrose 50% 50ML Syringe) 25-50ML OF 50% DW IV FOR... UD PRN IV 11/27/17 17:00 12/27/17 16:59 Glucagon (Glucagon Inj) 1 mg UD PRN SQ 11/27/17 17:00 12/27/17 16:59 Insulin Aspart (novoLOG ASPART) SLIDING SCALE ACHS SC 11/28/17 11:00 12/28/17 10:59 11/30/17 17:39 10 UNITS Acetaminophen (Tylenol Tab) 1,000 mg Q8H PRN PO 11/28/17 22:00 12/28/17 21:59 11/28/17 23:07 1,000 MG Ondansetron HCl (Zofran Inj) 4 mg Q6H PRN IV 11/29/17 04:45 12/29/17 04:44 11/29/17 13:27 4 MG Enoxaparin Sodium (Lovenox Inj) 40 mg HS SQ 11/29/17 21:00 12/29/17 20:59 11/30/17 20:01 40 MG Insulin Glargine (Lantus Solostar Pen) BSG LANTUS UNITS S... BID SC 11/29/17 21:00 12/29/17 20:59 11/30/17 20:38 30 UNITS Pantoprazole Sodium (Protonix Tab) 40 mg QAM PO 11/30/17 09:00 12/04/17 08:59 11/30/17 08:31 40 MG Al Hydrox/Mg Hydrox/Simethicone (Maalox Max Susp) 15 ml Q6H PRN PO 11/29/17 15:45 12/29/17 15:44 11/30/17 08:33 15 ML Senna/Docusate Sodium (Senokot S Tab) 2 tab BID PO 11/29/17 21:00 12/29/17 20:59 11/30/17 20:00 2 TAB Polyethylene (Miralax Powder Packet) 17 gm Q6H PRN PO 11/29/17 17:00 12/29/17 16:59 11/30/17 13:10 17 GM Bumetanide (Bumex Tab) 1 mg BID17 PO 11/30/17 17:00 12/30/17 16:59 11/30/17 16:20 1 MG Gabapentin (Neurontin Cap) 600 mg QAM PO 12/01/17 09:00 12/31/17 08:59 Gabapentin (Neurontin Cap) 900 mg HS PO 11/30/17 21:00 12/30/17 20:59 11/30/17 20:00 900 MG
[2017-11-30] MEDS: LORAZEPAM 2 MG TAB PO PRN (22:19)
[2017-12-01 04:00] VITALS: O2SAT 92
[2017-12-01 04:21] VITALS: BP 149/63; PULSE 63; TEMP 36.8; O2SAT 92
[2017-12-01 07:26] VITALS: BP 144/87; PULSE 64; TEMP 36.9; O2SAT 94
[2017-12-01] MEDS: DOCUSATE SODIUM/SENNA 50/8.6MG TAB PO SCH (08:34)
[2017-12-01] MEDS: ASPIRIN 81 MG ECTAB PO SCH (08:34)
[2017-12-01] MEDS: BUMETANIDE 1 MG TAB PO SCH (08:34)
[2017-12-01] MEDS: PANTOprazole SOD 40 MG TAB PO SCH (08:34)
[2017-12-01] MEDS: INSULIN ASPART 100 UNITS/ML 3 ML PEN SC SCH ×2 (08:35→11:56)
[2017-12-01] MEDS: INSULIN GLARGINE SOLOSTAR 100 UNITS/ML 3 ML PEN SC SCH (08:36)
[2017-12-01] MEDS ORDERED: GABAPENTIN 300 MG CAP PO SCH (09:00)
--- NOTE | 2017-12-01 09:24 | Nephrology Progress Note ---
Nephrology Progress Note Date of Service Dec 01, 2017. Chief Complaint Acute on chronic kidney disease Subjective Ms. Gonzalez was seen & examined in her hospital room this morning. She denies angina or palpitations. She reports brisk urine output in response to oral Bumex therapy. She notes that her leg edema is mildly improved. Review of Systems Constitutional: No fever Cardiovascular: No chest pain Respiratory: No dyspnea at rest Abdomen: No pain, No nausea, No vomiting Extremities: + leg edema A complete review of systems was performed. Pertinent positives are noted above. All other systems are negative. Vital Signs Last 8 Hrs Date Time Temp Pulse Resp B/P (MAP) Pulse Ox O2 Delivery O2 Flow Rate FiO2 12/01/17 07:26 36.9 64 20 144/87 (106) 94 Room Air 12/01/17 04:21 36.8 63 22 149/63 (91) 92 Room Air 12/01/17 04:00 92 Room Air Last Recorded Weight Weight (Kilograms): 116.000 Physical Exam General Appearance: no apparent distress Head: normocephalic, atraumatic Eyes: PERRL, EOMI Neck: no adenopathy Respiratory/Chest: lungs clear Cardiovascular: regular rate, rhythm Abdomen/GI: normal bowel sounds, non tender, soft Extremities/Musculoskelatal: + swelling (2+ pretibial pitting edema) Neurologic/Psych: alert, oriented x 3 Family History Diabetes mellitus FH: CAD (coronary artery disease) Hypertension Stroke Negative for CKD/ESRD Social History Smoking Status: Never smoker Smokeless Tobacco Use: No Alcohol Use: none Drug Use: none Marital Status: Housing Status: lives alone Occupation: retired . Retired. Never a smoker Laboratory Results Past 24 Hours Test 11/30/17 11:42 11/30/17 16:33 11/30/17 20:14 12/01/17 07:14 Bedside Glucose 106 mg/dl (70-90) 104 mg/dl (70-90) 135 mg/dl (70-90) 78 mg/dl (70-90) Test 12/01/17 07:23 Allergies Coded Allergies: Sulfamethoxazole w/Trimethoprim (Verified Allergy, Unknown, RASH, 11/27/17) Codeine (Verified Adverse Reaction, Mild, nausea, 11/27/17) Medications Current Inpatient Medications Medications (Trade) Dose Ordered Sig/Claire Route Start Time Stop Time Status Last Admin Dose Admin Aspirin (Ecotrin Tab) 81 mg QAM PO 11/28/17 09:00 12/28/17 08:59 12/01/17 08:34 81 MG Lorazepam (Ativan Tab) 2 mg HS PRN PO 11/27/17 16:45 12/27/17 16:44 11/30/17 22:19 2 MG Glucose (Glucose 40% Gel) 15-30 GRAMS 15 GRAMS... UD PRN PO 11/27/17 17:00 12/27/17 16:59 Glucose (Glucose Chew Tab) 4-8 Tablets 4 Tabl... UD PRN PO 11/27/17 17:00 12/27/17 16:59 Dextrose (Dextrose 50% 50ML Syringe) 25-50ML OF 50% DW IV FOR... UD PRN IV 11/27/17 17:00 12/27/17 16:59 Glucagon (Glucagon Inj) 1 mg UD PRN SQ 11/27/17 17:00 12/27/17 16:59 Insulin Aspart (novoLOG ASPART) SLIDING SCALE ACHS SC 11/28/17 11:00 12/28/17 10:59 12/01/17 08:35 4 UNITS Acetaminophen (Tylenol Tab) 1,000 mg Q8H PRN PO 11/28/17 22:00 12/28/17 21:59 11/28/17 23:07 1,000 MG Ondansetron HCl (Zofran Inj) 4 mg Q6H PRN IV 11/29/17 04:45 12/29/17 04:44 11/29/17 13:27 4 MG Enoxaparin Sodium (Lovenox Inj) 40 mg HS SQ 11/29/17 21:00 12/29/17 20:59 11/30/17 20:01 40 MG Insulin Glargine (Lantus Solostar Pen) BSG LANTUS UNITS S... BID SC 11/29/17 21:00 12/29/17 20:59 11/30/17 20:38 30 UNITS Pantoprazole Sodium (Protonix Tab) 40 mg QAM PO 11/30/17 09:00 12/04/17 08:59 12/01/17 08:34 40 MG Al Hydrox/Mg Hydrox/Simethicone (Maalox Max Susp) 15 ml Q6H PRN PO 11/29/17 15:45 12/29/17 15:44 11/30/17 08:33 15 ML Senna/Docusate Sodium (Senokot S Tab) 2 tab BID PO 11/29/17 21:00 12/29/17 20:59 12/01/17 08:34 2 TAB Polyethylene (Miralax Powder Packet) 17 gm Q6H PRN PO 11/29/17 17:00 12/29/17 16:59 11/30/17 13:10 17 GM Bumetanide (Bumex Tab) 1 mg BID17 PO 11/30/17 17:00 12/30/17 16:59 12/01/17 08:34 1 MG Gabapentin (Neurontin Cap) 600 mg QAM PO 12/01/17 09:00 12/31/17 08:59 12/01/17 08:34 600 MG Gabapentin (Neurontin Cap) 900 mg HS PO 11/30/17 21:00 12/30/17 20:59 11/30/17 20:00 900 MG Bumetanide (Bumex Tab) 0.5 mg QAM PO 12/01/17 09:00 12/31/17 08:59 UNV Bumetanide (Bumex Tab) 0.5 mg 0849 ONCE PO 12/01/17 08:49 12/01/17 08:50 UNV Impression (1) Acute tubular necrosis (2) Chronic kidney disease, stage IV (severe) (3) Morbid obesity (4) Diabetes mellitus type 2 (5) Benign hypertension (6) Coronary artery disease (7) Lymphedema ATN due to dehydration in the setting of ELIZABETH inhibitor therapy HIDA scan was negative for obstruction of GB Recommendations ACUTE KIDNEY INJURY: -- Resolved. CHRONIC KIDNEY DISEASE: -- Baseline creatinine has been 2.0 HYPERTENSION: -- Blood pressure is slowly trending up. Resume Amlodipine 5 mg each morning -- Avoid Lisinopril due to recent ASPEN EDEMA: -- Will resume home diuretic regimen of Bumex 1.5 mg each morning and 1 mg each evening -- Resume KCl 20 mEQ each morning -- Monitor I&O's, weight and blood pressure ANEMIA: -- Mild asymptomatic anemia. Hgb remains stable at 10.3. Will monitor GI: -- HIDA scan 11/29: No GB obstruction CV: -- Cardiology note 11/29 reviewed: admission ECG w/ junctional bradycardia. Patient will be scheduled for 2 week Zio monitor OTHER: -- Will ask office nurse practitioner staff to contact patient and schedule Nephrology follow up office visit in 2 weeks. Orders placed in office EMR for labs to be completed 24 hours prior to visit
[2017-12-01 09:30] LABS: CALCIUM 9.6 mg/dl (8.5-10.1); CREATININE 1.52 mg/dl (0.60-1.20); POTASSIUM 3.9 mmol/L (3.5-5.1)
[2017-12-01] MEDS ORDERED: BUMETANIDE 1 MG TAB PO ONE (09:30)
[2017-12-01 11:31] VITALS: BP 131/68; PULSE 61; TEMP 36.7; O2SAT 98
[2017-12-01] MEDS ORDERED: OMEP40CA41 PO (14:34)
--- NOTE | 2017-12-01 14:34 | Discharge Instructions ---
Discharge Instructions Date of Service Dec 01, 2017. Admission Reason for Admission: worsening kidney function + slow heart rate . Discharge Discharge Diagnosis / Problem: worsening kidney function + slow heart rate Discharge Goals Goal(s): Decrease discomfort, Improve function, Improve disease control Activity Recommendations Activity Limitations: resume your previous activity . Instructions / Follow-Up Instructions / Follow-Up APPOINTMENTS: FAMILY MEDICINE 12/02/2017 1:00 PM Maggie Dangelo MD CARDIOLOGY 12/28/2017 10:00 AM Mike Lira PA-C NEPHROLOGY Dr. Fountain OTHER INSTRUCTIONS: Only new medication is omeprazole (Prilosec) to help control stomach acid. Take 1 pill daily. Cover leg ulcer with Optifoam every other day. Weigh yourself daily. Don't take ibuprofen (Advil or Motrin) unless absolutely necessary and only for 1 day at a time. It can make your kidney function worse and upset your stomach. Outpatient heart monitor to be arranged. Seek medical attention if you have: * temperature above 101 * chest pain or trouble breathing * worsening swelling of legs or unexplained weight gain * abdominal pain, nausea, vomiting * diarrhea, dark stools or bloody stools * any unanswered questions or concerns Call 911 if symptoms are severe. Call if you have any questions or problems. My cell # is [phone]. You can also reach a [facility] hospitalist on duty at [facility] 24 hours a day by calling [phone]. Please take good care of yourself. Washington Jasso . Current Hospital Diet Patient's current hospital diet: Diabetes Type 2 Diet Discharge Diet Recommended Diet: AHA Diet (Heart Healthy), Diabetes Type 2 Diet Pending Studies Studies pending at discharge: no Laboratory Results Hemoglobin A1c Test 11/30/17 07:55 Range/Units Estimated Average Glucose 148 mg/dl Hemoglobin A1c 6.8 H 4.5-5.6 % Lipid Panel Test 11/30/17 07:55 Range/Units Triglycerides Level 119 0-150 mg/dl Cholesterol Level 107 0-200 mg/dl HDL Cholesterol 40 mg/dl Cholesterol/HDL Ratio 2.7 LDL Cholesterol, Calculated 43 mg/dl Medical Emergencies . Who to Call and When: Medical Emergencies: If at any time you feel your situation is an emergency, please call 911 immediately. . Non-Emergent Contact Non-Emergency issues call your: Primary Care Provider, Genetic Scientist, Hospital Doctor . . "Provider Documentation" section prepared by Washington Jasso. .
[2017-12-01 15:10] VITALS: BP 131/68; PULSE 61; TEMP 36.7; O2SAT 98
[2017-12-01 15:45] VITALS: Ht 157.5 cm; Wt 116.0 kg
[2017-12-01] MEDS ORDERED: MCRK20 PO (15:58)
--- NOTE | 2017-12-01 21:38 | Progress Note ---
Medicine Progress Note Date & Time of Visit: Dec 01, 2017 . Subjective Doing well. Anxious to go home. No chest pain, cough, shortness of breath. Ambulating without difficulty. . Objective Last 8 Hrs Date Time Temp Pulse Resp B/P (MAP) Pulse Ox O2 Delivery O2 Flow Rate FiO2 12/01/17 15:10 36.7 61 16 98 Room Air Physical Exam: General- sitting in chair at bedside; no distress Lungs- clear to auscultation; no respiratory distress Cardiovascular- RRR; II/ systolic murmur LSB; no gallop appreciated; + JVD; 3 + pretibial edema Abdomen- + bowel sounds, soft, nontender Extremities- no cyanosis; no calf tenderness Neuro- alert, oriented Skin- warm & dry . Laboratory Results: Last 24 Hours Test 12/01/17 07:14 12/01/17 07:23 12/01/17 11:18 Bedside Glucose 78 mg/dl 164 mg/dl Sodium Level 143 mmol/L Potassium Level 3.9 mmol/L Chloride Level 107 mmol/L Carbon Dioxide Level 32 mmol/L Anion Gap 4.0 mmol/L Blood Urea Nitrogen 47 mg/dl Creatinine 1.52 mg/dl Est Creatinine Clear Calc Drug Dose 38.0 ml/min Estimated GFR () 38.2 Estimated GFR (Non- 33.0 BUN/Creatinine Ratio 30.6 Random Glucose 54 mg/dl Calcium Level 9.6 mg/dl Assessment & Plan ACUTE KIDNEY INJURY / CHRONIC KIDNEY DISEASE STAGE IV CKD IV with baseline creatinine of 2, followed by Dr. Fountain. Serum creatinine on admission was 4.15. Nephrology consulted. Diuretics held. Serum creatinine today = 1.52. Bumetanide resumed at previous dose of 1.5 mg each morning and 1 mg in the evening. Lisinopril discontinued. Avoid NSAID's. Follow. CORONARY ARTERY DISEASE History of coronary artery disease, status post PCI of right coronary artery in 2001. Was experiencing epigastric discomfort and dyspnea which may or may not represent myocardial ischemia. Initial EKG showed junctional rhythm in the 40s associated with borderline hyperkalemia; subsequently in sinus rhythm. Troponin at time of admission was 0.02. Continue aspirin. Not on beta-padma secondary to junctional rhythms. Continue statin. PROBABLE CHF Chest x-ray showed cardiomegaly, mild interstitial prominence (?CHF). Echocardiogram performed on 09/16/17 demonstrated mild concentric LVH, normal left ventricular wall motion and function with LVEF of 60-65%, grade 1 diastolic dysfunction, mild mitral regurgitation, normal right ventricular dimensions and systolic function. May have underlying sleep apnea and/or obesity hypoventilation syndrome. Probable chronic left ventricular diastolic heart failure, perhaps with a component of right-sided failure as well. Diuretics held due to acute kidney injury. Renal function improved and diuretic therapy being resumed. Follow exam, weights, labs and titrate diuretic therapy. JUNCTIONAL BRADYCARDIA Initial EKG showed junctional rhythm in the 40s associated with borderline hyperkalemia; subsequently in sinus rhythm. Prior history of junctional rhythm while taking beta-padma. Cardiology consulted for their input regarding possible need for pacemaker. No need for pacemaker at this time. Outpatient cardiac monitoring recommended and will be arranged. HYPERTENSION Lisinopril discontinued because of acute kidney injury. No beta padma because of junctional rhythm. Discharged on amlodipine 5 mg daily. POSSIBLE SLEEP APNEA Patient has advised to have outpatient polysomnography performed in the past, but has declined because she does not want to wear CPAP or BiPAP. Importance of diagnosing and treating sleep apnea and/or obesity hypoventilation syndrome discussed. ? HEPATOBILIARY DISEASE Patient experiencing intermittent epigastric discomfort and abdominal bloating. LFTs and lipase were normal at the time of admission. General Surgery and Gastroenterology consulted. CT of abdomen and pelvis showed mild pericholecystic/duodenal edema, no apparent cholelithiasis or choledocholithiasis, no bowel obstruction or free air. Ultrasound of abdomen demonstrated thickening of gallbladder wall, no cholelithiasis or choledocholithiasis, trace pericholecystic fluid, no ductal dilatation, mild fullness of left renal pelvis. HIDA scan did not show any evidence of cholecystitis. No need for surgical intervention at this time. EPIGASTRIC PAIN GI consulted. Hepatobiliary evaluation as noted above. No need for endoscopy at this time. Symptoms improved with pantoprazole. Discharged on omeprazole 40 mg daily. Advised to avoid NSAIDs due to renal and GI side effects. Reconsider upper GI evaluation if symptoms recur. DM TYPE 2 History of diabetes mellitus type 2 on insulin therapy. Lantus / NovoLog per protocol. Fasting blood sugar today = 78. Discharged on usual regimen. MORBID OBESITY Weight 117 kg, BMI 47. AHA, diabetic diet. VTE PROPHYLAXIS SCD's ordered. Enoxaparin added. Ambulate. DISPOSITION Discharge to home. Family Medicine follow-up with Dr. Dangelo. Cardiology follow-up with Mike Lira PA-C. Nephrology follow-up with Dr. Fountain. . Consultants: General Surgery GI Nephrology with Dr. Fountain Cardiology . Procedures: Cardiac monitoring Intravenous medications CT of abdomen and pelvis Ultrasound abdomen HIDA scan .
--- NOTE | 2017-12-02 08:27 | Discharge Summary ---
Discharge Summary Date of Service Dec 02, 2017. Discharge Summary Admission Date: Nov 27, 2017 at 16:34 Discharge Date: Dec 01, 2017 Discharge Disposition: Home Principal Diagnosis: acute kidney injury OTHER ACUTE / SECONDARY DIAGNOSES: junctional bradycardia borderline hyperkalemia epigastric pain . Secondary Diagnoses/Problems: Chronic and Resolved Medical Problems: (1) Benign hypertension Status: Chronic (2) Chronic kidney disease, stage IV (severe) Status: Chronic (3) Coronary artery disease Status: Chronic (4) Diabetes mellitus type 2 Status: Chronic (5) Diastolic CHF, chronic Status: Chronic (6) Dyslipidemia Status: Chronic (7) Glaucoma Status: Chronic (8) Gout Status: Chronic (9) Junctional bradycardia Status: Resolved (10) Lymphedema Status: Chronic (11) Morbid obesity Status: Chronic (12) Neuropathy Status: Chronic Surgical Problems: (1) History of knee replacement procedure of right knee Status: Resolved (2) Hx of heart artery stent Permanent Comment: 2001 - RCA metal stent Status: Resolved . Procedures: Cardiac monitoring Intravenous medications CT of abdomen and pelvis Ultrasound abdomen HIDA scan . Consultations: General Surgery GI Nephrology with Dr. Fountain Cardiology . Pending Studies/Follow-Up: outpatient monitoring tech to be arranged please check basic metabolic profile in 1 week with copy of report to Dr. Fountain . Medication Reconciliation New Medications: Omeprazole (Prilosec) 40 Mg Cap 40 MG PO DAILY, #30 CAP 1 Refill Potassium Chloride (Klor-Con M20) 20 Meq Tabcr 20 MEQ PO DAILY, #30 TAB 5 Refills Continued Medications: Allopurinol (Zyloprim) 300 Mg Tab 300 MG PO QAM, TAB Amlodipine Besylate (Norvasc) 5 Mg Tab 5 MG PO DAILY, TAB Aspirin Enteric Coated (Ecotrin Or Generic) 81 Mg Tab 81 MG PO QAM, TAB Atorvastatin (Lipitor) 80 Mg Tab 80 MG PO QAM, TAB Bumetanide (Bumex) 1 Mg Tab 1.5 TAB PO QAM for 90 Days, #135 TAB 1 Refill Bumetanide (Bumex) 1 Mg Tab 1 TAB PO HS for 90 Days, TAB 1 Refill Gabapentin (Neurontin) 300 Mg Cap 600 MG PO QAM, CAP Gabapentin (Neurontin) 300 Mg Cap 900 MG PO HS Insulin Aspart (Novolog Penfill) 100 Unit/Ml Inj 14 UNITS SQ QA Insulin Aspart (Novolog Penfill) 100 Unit/Ml Inj 16 UNITS SQ LUNCH Insulin Aspart (Novolog Penfill) 100 Unit/Ml Inj 18 UNITS SQ SUPPER Insulin Glargine (Lantus Solostar) 100 Unit/Ml Inj 50 UNITS SQ QAM, #30 Insulin Glargine (Lantus Solostar) 100 Unit/Ml Inj 30 UNITS SC QPM Lorazepam (Lorazepam) 2 Mg Tab 2 MG PO HS PRN for Sleep Nitroglycerin (Nitrostat) 0.4 Mg Tab 0.4 MG UT PRN, TAB Nystatin (Nystop) 45 Appln/15 Gm Powd 1 APPLN EXT PRN PRN for EXCORIATION, #1 BTL Discontinued Medications: Lisinopril (Lisinopril) 5 Mg Tab 5 MG PO QAM, #30 TAB Potassium Chloride (Klor-Con M20) 20 Meq Tabcr 20 MEQ PO BID, #1 TABS Admission Information HPI (per Admitting provider): This is a 77 year old F with PMH significant for CKD, coronary artery with stent , heart failure on diuretics, history of junctional arrhythmias when on beta padma and that 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 as per August 2017 cardiology inpatient evaluation, who was having abdominal bloating and not urinating in 2 days and was found in the emergency room to be in acute renal failure with uremia, high normal serum potassium level of 5, and bradycardia. Patient denies history of fever, dysuria , or flank pain, changes in appetite or oral intake, or problems with bowel movements. . Physical Exam (per Admitting): General Appearance: no apparent distress, + obese Head: normocephalic, atraumatic Eyes: normal inspection, EOMI, sclerae normal ENT: normal ENT inspection, hearing grossly normal, pharynx normal Neck: supple, no JVD, trachea midline Respiratory/Chest: chest non-tender, lungs clear, normal breath sounds, no respiratory distress, no accessory muscle use Cardiovascular: no JVD, normal peripheral pulses, + bradycardia, + pertinent finding (1+ EDEMA bilateral lower extremities) Abdomen/GI: normal bowel sounds, non tender, soft, no organomegaly, no pulsatile mass Back: normal inspection, no CVA tenderness, no muscle spasm, normal range of motion Extremities/Musculoskelatal: normal inspection, no calf tenderness, normal range of motion, non-tender Neurologic/Psych: no motor/sensory deficits, alert, normal mood/affect, oriented x 3 Skin: normal color, warm/dry, no rash Hospital Course ACUTE KIDNEY INJURY / CHRONIC KIDNEY DISEASE STAGE IV CKD IV with baseline creatinine of 2, followed by Dr. Fountain. Serum creatinine on admission was 4.15. Nephrology consulted. Diuretics held. Serum day of discharge was 1.52. Bumetanide resumed at previous dose of 1.5 mg each morning and 1 mg in the evening. Lisinopril discontinued. Avoid NSAID's. Follow. BORDERLINE HYPERKALEMIA Serum potassium at time of admission was 5.0 in the setting of acute kidney injury. Associated junctional bradycardia. Lisinopril was discontinued. Discharged on reduced dose of potassium chloride. Follow. CORONARY ARTERY DISEASE History of coronary artery disease, status post PCI of right coronary artery in 2001. Was experiencing epigastric discomfort and dyspnea which may or may not represent myocardial ischemia. Initial EKG showed junctional rhythm in the 40s associated with borderline hyperkalemia; subsequently in sinus rhythm. Troponin at time of admission was 0.02. Continue aspirin. Not on beta-padma secondary to junctional rhythms. Continue statin. PROBABLE CHF Chest x-ray showed cardiomegaly, mild interstitial prominence (?CHF). Echocardiogram performed on 09/16/17 demonstrated mild concentric LVH, normal left ventricular wall motion and function with LVEF of 60-65%, grade 1 diastolic dysfunction, mild mitral regurgitation, normal right ventricular dimensions and systolic function. May have underlying sleep apnea and/or obesity hypoventilation syndrome. Probable chronic left ventricular diastolic heart failure, perhaps with a component of right-sided failure as well. Diuretics held due to acute kidney injury. Renal function improved and diuretic therapy being resumed. Follow exam, weights, labs and titrate diuretic therapy. JUNCTIONAL BRADYCARDIA Initial EKG showed junctional rhythm in the 40s associated with borderline hyperkalemia; subsequently in sinus rhythm. Prior history of junctional rhythm while taking beta-padma. Cardiology consulted for their input regarding possible need for pacemaker. No need for pacemaker at this time. Outpatient cardiac monitoring recommended and will be arranged. HYPERTENSION Lisinopril discontinued because of acute kidney injury. No beta padma because of junctional rhythm. Discharged on amlodipine 5 mg daily. POSSIBLE SLEEP APNEA Patient has advised to have outpatient polysomnography performed in the past, but has declined because she does not want to wear CPAP or BiPAP. Importance of diagnosing and treating sleep apnea and/or obesity hypoventilation syndrome discussed. ? HEPATOBILIARY DISEASE Patient experiencing intermittent epigastric discomfort and abdominal bloating. LFTs and lipase were normal at the time of admission. General Surgery and Gastroenterology consulted. CT of abdomen and pelvis showed mild pericholecystic/duodenal edema, no apparent cholelithiasis or choledocholithiasis, no bowel obstruction or free air. Ultrasound of abdomen demonstrated thickening of gallbladder wall, no cholelithiasis or choledocholithiasis, trace pericholecystic fluid, no ductal dilatation, mild fullness of left renal pelvis. HIDA scan did not show any evidence of cholecystitis. No need for surgical intervention at this time. EPIGASTRIC PAIN GI consulted. Hepatobiliary evaluation as noted above. No need for endoscopy at this time. Symptoms improved with pantoprazole. Discharged on omeprazole 40 mg daily. Advised to avoid NSAIDs due to renal and GI side effects. Reconsider upper GI evaluation if symptoms recur. DM TYPE 2 History of diabetes mellitus type 2 on insulin therapy. Lantus / NovoLog per protocol. Fasting blood sugar day of discharge was 78. Discharged on usual regimen. MORBID OBESITY Weight 117 kg, BMI 47. AHA, diabetic diet. VTE PROPHYLAXIS SCD's ordered. Enoxaparin added. Ambulate. DISPOSITION Discharge to home. Family Medicine follow-up with Dr. Dangelo. Cardiology follow-up with Mike Lira PA-C. Nephrology follow-up with Dr. Fountain. . Total time spent on discharge = 40 min. This includes examination of the patient, discharge planning, medication reconciliation, and communication with other providers. [place] [address] Discharge Medical Patient Name: Anjali Gonzalez Unit Number: [id number] Date of : 1940 Patient Status: Discharged Inpatient Attending Doctor: Washington Jasso M.D. DI: Medical v5 Discharge Instructions Date of Service Dec 01, 2017. Admission Reason for Admission: worsening kidney function + slow heart rate . Discharge Discharge Diagnosis / Problem: worsening kidney function + slow heart rate Discharge Goals Goal(s): Decrease discomfort, Improve function, Improve disease control Activity Recommendations Activity Limitations: resume your previous activity . Instructions / Follow-Up Instructions / Follow-Up APPOINTMENTS: FAMILY MEDICINE 12/02/2017 1:00 PM Maggie Dangelo MD CARDIOLOGY 12/28/2017 10:00 AM Mike Lira PA-C NEPHROLOGY Dr. Fountain OTHER INSTRUCTIONS: Only new medication is omeprazole (Prilosec) to help control stomach acid. Take 1 pill daily. Cover leg ulcer with Optifoam every other day. Weigh yourself daily. Don't take ibuprofen (Advil or Motrin) unless absolutely necessary and only for 1 day at a time. It can make your kidney function worse and upset your stomach. Outpatient heart monitor to be arranged. Seek medical attention if you have: * temperature above 101 * chest pain or trouble breathing * worsening swelling of legs or unexplained weight gain * abdominal pain, nausea, vomiting * diarrhea, dark stools or bloody stools * any unanswered questions or concerns Call 911 if symptoms are severe. Call if you have any questions or problems. My cell # is [phone]. You can also reach a [facility] hospitalist on duty at [facility] 24 hours a day by calling [phone]. Please take good care of yourself. Washington Jasso . Current Hospital Diet Patient's current hospital diet: Diabetes Type 2 Diet Discharge Diet Recommended Diet: AHA Diet (Heart Healthy), Diabetes Type 2 Diet Pending Studies Studies pending at discharge: no Laboratory Results Hemoglobin A1c Test 11/30/17 07:55 Range/Units Estimated Average Glucose 148 mg/dl Hemoglobin A1c 6.8 H 4.5-5.6 % Lipid Panel Test 11/30/17 07:55 Range/Units Triglycerides Level 119 0-150 mg/dl Cholesterol Level 107 0-200 mg/dl HDL Cholesterol 40 mg/dl Cholesterol/HDL Ratio 2.7 LDL Cholesterol, Calculated 43 mg/dl Medical Emergencies . Who to Call and When: Medical Emergencies: If at any time you feel your situation is an emergency, please call 911 immediately. . Non-Emergent Contact Non-Emergency issues call your: Primary Care Provider, Brick Baker, Hospital Doctor . . "Provider Documentation" section prepared by Washington Jasso. . . Additional Copies To Maggie Dangelo M.D.; Tino Fountain M.D.; Mike Lira PA-C; Catherine Lima, JOSLYNC
[2017-12-02] MEDS ORDERED: POTASSIUM CHLORIDE 20 MEQ TABCR PO SCH (09:00)
[2017-12-02] MEDS ORDERED: BUMETANIDE 1 MG TAB PO SCH (09:00)
== END 2017-12-01 16:10 | disposition home or self-care (01) | DRG 683 ==
LOC: C.EDB 12:43 → C.2T 16:34 → ENRESERV 16:54
PROVIDERS: ADMIT Hospitalist; ATTEND Hospitalist
DX: N17.9 Acute kidney failure, unspecified (principal); I50.32 Chronic diastolic (congestive) heart failure; N18.4 Chronic kidney disease, stage 4 (severe); I25.10 Atherosclerotic heart disease of native coronary artery without angina pectoris; E11.22 Type 2 diabetes mellitus with diabetic chronic kidney disease; E78.5 Hyperlipidemia, unspecified; I12.9 Hypertensive chronic kidney disease with stage 1 through stage 4 chronic kidney disease, or unspecified chronic kidney disease; M10.9 Gout, unspecified; E66.01 Morbid (severe) obesity due to excess calories; E87.5 Hyperkalemia; E55.9 Vitamin D deficiency, unspecified; I89.0 Lymphedema, not elsewhere classified; D64.9 Anemia, unspecified; K81.1 Chronic cholecystitis; R10.13 Epigastric pain; R00.1 Bradycardia, unspecified; Z96.651 Presence of right artificial knee joint; Z79.4 Long term (current) use of insulin; Z88.2 Allergy status to sulfonamides; Z88.5 Allergy status to narcotic agent; Z79.82 Long term (current) use of aspirin; Z83.3 Family history of diabetes mellitus; Z82.49 Family history of ischemic heart disease and other diseases of the circulatory system; Z82.3 Family history of stroke

== ENCOUNTER → 2017-12-12 | Outpatient (CLI) | payer OTHER ==
[~2017-12-12] MED LIST changes: +AMLO5TAB2 PO; +ASPI-319 PO; -ASPI81TA21 PO; -BMX1 PO; +BUME1TAB PO; -CEPH500C2 PO; -LSN5 PO; -NRV5 PO; +OMEP40CA41 PO
[2017-12-12 17:24] LABS: HEMATOCRIT 38.5 % (37-47); HEMOGLOBIN 12.6 g/dL (12.0-16.0); MEAN CELL VOLUME 96.3 fL (80-100); MEAN CORPUSCULAR HEMOGLOBIN 31.5 pg (25-34); MEAN CORPUSCULAR HGB CONC 32.7 g/dl (32-36); MEAN PLATELET VOLUME 11.3 fL (7.4-10.4); PLATELET COUNT 181 K/uL (130-400); RED CELL DISTRIBUTION WIDTH CV 14.7 % (11.5-14.5); RED CELL DISTRIBUTION WIDTH SD 51.7 fL (36.4-46.3); WHITE BLOOD COUNT 6.71 K/uL (4.8-10.8)
[2017-12-12 17:30] LABS: ALBUMIN 3.6 gm/dl (3.4-5.0); BLOOD UREA NITROGEN 45 mg/dl (7-18); CALCIUM 9.4 mg/dl (8.5-10.1); CARBON DIOXIDE 30 mmol/L (21-32); CREATININE 1.79 mg/dl (0.60-1.20); GLUCOSE 132 mg/dl (70-99); PHOSPHORUS 3.2 mg/dl (2.5-4.9); POTASSIUM 4.3 mmol/L (3.5-5.1); SODIUM 141 mmol/L (136-145)
== END | disposition home or self-care (01) ==
LOC: C.LABBFT 15:23
PROVIDERS: ATTEND Internal Medicine Nephrology
DX: I89.0 Lymphedema, not elsewhere classified (principal); N18.3 Chronic kidney disease, stage 3 (moderate); R60.9 Edema, unspecified; E83.52 Hypercalcemia; I12.9 Hypertensive chronic kidney disease with stage 1 through stage 4 chronic kidney disease, or unspecified chronic kidney disease

== ENCOUNTER → 2017-12-13 | Outpatient (CLI) | payer OTHER | END | disposition home or self-care (01) | LOC: C.LABBFT 08:38 | PROVIDERS: ATTEND Internal Medicine Nephrology | DX: I12.9 Hypertensive chronic kidney disease with stage 1 through stage 4 chronic kidney disease, or unspecified chronic kidney disease (principal); I89.0 Lymphedema, not elsewhere classified; N18.3 Chronic kidney disease, stage 3 (moderate); R60.9 Edema, unspecified; E83.52 Hypercalcemia ==

== ENCOUNTER → 2018-03-17 | Outpatient (CLI) | payer OTHER ==
[~2018-03-17] MED LIST changes: +CEPH500C2 PO
[2018-03-17 12:34] LABS: HEMATOCRIT 45.7 % (37-47); HEMOGLOBIN 15.1 g/dL (12.0-16.0); MEAN CORPUSCULAR HEMOGLOBIN 30.4 pg (25-34); MEAN PLATELET VOLUME 11.6 fL (7.4-10.4); PLATELET COUNT 203 K/uL (130-400); RED CELL DISTRIBUTION WIDTH CV 14.8 % (11.5-14.5); RED CELL DISTRIBUTION WIDTH SD 49.4 fL (36.4-46.3)
[2018-03-17 13:03] LABS: ALBUMIN 3.9 gm/dl (3.4-5.0); BLOOD UREA NITROGEN 87 mg/dl (7-18); CALCIUM 10.8 mg/dl (8.5-10.1); CARBON DIOXIDE 37 mmol/L (21-32); CREATININE 1.81 mg/dl (0.60-1.20); GLUCOSE 187 mg/dl (70-99); PHOSPHORUS 3.2 mg/dl (2.5-4.9); POTASSIUM 2.7 mmol/L (3.5-5.1); SODIUM 137 mmol/L (136-145)
== END | disposition home or self-care (01) ==
LOC: C.LAB1850 11:17
PROVIDERS: ATTEND Internal Medicine Nephrology
DX: I13.0 Hypertensive heart and chronic kidney disease with heart failure and stage 1 through stage 4 chronic kidney disease, or unspecified chronic kidney disease (principal); I50.30 Unspecified diastolic (congestive) heart failure; N18.4 Chronic kidney disease, stage 4 (severe); E55.9 Vitamin D deficiency, unspecified; E87.6 Hypokalemia; R60.9 Edema, unspecified

== ENCOUNTER → 2018-03-20 | Outpatient (CLI) | payer OTHER ==
[2018-03-20 16:48] LABS: ALBUMIN 3.8 gm/dl (3.4-5.0); BLOOD UREA NITROGEN 101 mg/dl (7-18); CALCIUM 10.8 mg/dl (8.5-10.1); CARBON DIOXIDE 36 mmol/L (21-32); GLUCOSE 134 mg/dl (70-99); PHOSPHORUS 3.8 mg/dl (2.5-4.9); POTASSIUM 2.6 mmol/L (3.5-5.1); SODIUM 135 mmol/L (136-145)
== END | disposition home or self-care (01) ==
LOC: C.LAB1850 14:11
PROVIDERS: ATTEND Internal Medicine Nephrology
DX: N18.3 Chronic kidney disease, stage 3 (moderate) (principal); E87.6 Hypokalemia

== ENCOUNTER 2019-02-13 06:30 | Observation (INO) ==
[~2019-02-13 06:30] MED LIST changes: -ALLO300T2 PO; -AMLO5TAB2 PO; -ASPI-319 PO; -ATOR-26 PO; -ATV2 PO; -BUME1TAB PO; +CEFAZOLIN 1000MG 1,000 MG/7.5 ML SYR IV SCH; -CEPH500C2 PO; -GABA-113 PO; -INSDGIPEN SC; -INSDGIPEN SQ; -INSU1INJ2 SQ; +LR 15ML/HR IV SCH; -MCRK20 PO; -NTRGSL/4 UT; -NYSP EXT; -OMEP40CA41 PO
--- NOTE | 2019-02-13 08:02 | History & Physical Bridge Note ---
Date of Service February 13, 2019 History & Physical Bridge Note I have examined the patient, reviewed the History & Physical and in the interval since the performance of the History & Physical I have noted the following changes of clinical significance: no changes noted
--- NOTE | 2019-02-13 08:03 | Pre Anesthesia Assessment ---
Date of Service February 13, 2019 Pre Sedation Assessment Vital Signs Temp Pulse Resp BP Pulse Ox 02/13/19 07:26 36.9 C 66 20 155/94 H 98 Cardiovascular RRR, no murmur, no edema + bradycardic Respiratory normal respiratory effort, lungs clear to auscultation Pre-Sedation Airway Assessment Smoking Status: Never smoker Hx Sleep Apnea: No Hx Difficult Intubation: No Short, Thick Neck: No Thyromental Distance: < 3.5 Finger Breadths Oral Cavity: + WNL Mallampati Class: III ASA: ASA3 NPO Status Date of Last Intake of Fluids: 02/12/19 Date of Last Intake of Solid Food: 02/12/19 Procedure Planning Contraindications for Sedation: none Current Medications Reviewed: Yes Notes The planned sedation has been discussed with the patient. Informed Consent was obtained. I have identified the patient, determined the appropriateness of sedation and have assessed the patient immediately prior to the procedure. All medicine(s) and interventions are by my order.
[2019-02-13] MEDS ORDERED: CEFAZOLIN 250 MG/ML 1 GM VIAL ONE (08:14)
[2019-02-13] MEDS ORDERED: fentaNYL citrate 100 MCG/2 ML VIAL ONE ×2 (08:14→08:58)
[2019-02-13] MEDS ORDERED: MIDAZOLAM HCL 5 MG/ML 1 ML VIAL ONE (08:14)
[2019-02-13] MEDS ORDERED: LIDOCAINE HCL 1% 20 ML VIAL ONE (08:29)
[2019-02-13] MEDS ORDERED: BUPIVACAINE 0.25% 30 ML VIAL ONE (08:29)
[2019-02-13] MEDS ORDERED: BACITRACIN INJ 50,000 UNIT VIAL ONE (08:29)
--- NOTE | 2019-02-13 09:26 | Post Anesthesia Assessment ---
Date of Service February 13, 2019 Post Sedation Assessment Vital Signs Temp Pulse Resp BP Pulse Ox 02/13/19 07:26 36.9 C 66 20 155/94 H 98 Recovery Score Activity: Moves 4 extremities Respiration: Deep Breath/Cough Circulation: +/-20% PreAnes Value Consciousness: Fully Awake Oxygen Saturation: > 92% On Room Air Discharge Sedation Level of Care: Fast Track Phase II Post Sedation Plan On clinical assessment, the patient appears to have tolerated the sedation without complications. Patient is recovering as anticipated. Patient will continue to be monitored by nursing and may be discharged when sedation discharge criteria are met per below protocol. Upon Completions of procedure and additional 15 minutes continue every 5 minute vital signs and the P.A.R. score; then discharge to a Phase I or Fast Track to Phase II per the following guidelines: * Discharge Patient to appropriate Phase II area if PAR is 8 or greater or return to pre- procedure baseline. The post - procedure orders will be as directed. * If PAR score is less than 8 or not return to pre-procedure baseline then patient will follow Phase I monitoring till PAR is reached for Phase II. The Phase I may be done in procedure room or may call to secure a Phase I area. * If naloxone or flumazenil are used for reversal, hold in Phase I for continued monitoring from when last reversal dose was given for a minimum of 60 minutes or longer pending the nurse and/or physician discretion of patient condition before discharge to Phase II. Please call the Sedation Physician to re-evaluate and complete post-note for discharge to Phase II area. Do NOT discharge from procedure sedation or Phase 1 until post- sedation evaluation note is complete by procedure /sedation MD Sedation Discharge Instructions to be given to the patient at discharge to home.
[2019-02-13] MEDS ORDERED: ACETAMINOPHEN 325 MG TAB PO PRN (09:29)
--- NOTE | 2019-02-13 09:29 | Operative Report ---
Post Operative Report Pre & Post Diagnosis tbs Operation Date: 02/13/19 08:00 <No data on this case meets the specified criteria> Procedure Operation Date: 02/13/19 08:00 Actual Procedures p Pacer with A/V Leads (Dual) - Mady Betts DO Surgeon Mady Betts, Channel Installer none Estimated Blood Loss 15 Findings Consistent with Post-Op Diagnosis Specimens none Description of Procedure see official report I attest to the content of the Intraoperative Record and any orders documented therein. Any exceptions are noted below.
[2019-02-13] MEDS ORDERED: CYCLOBENZAPRINE HCL 10 MG TAB PO PRN (09:30)
--- NOTE | 2019-02-13 09:39 | Discharge Summary ---
Date of Service February 13, 2019 Admission HPI Per Admitting Provider pt with increased fatigue and syncope Admission Exam Per Admitting Provider aaox3, NAD NC/AT, EOMI Supple No JVD Nrl S1/S2, No murmur CTA b/l no w/r/r soft nt/nd no LE edema b/l skin intact no focal deficits Principal Diagnosis TBS s/p dual chamber pacemaker Discharge Exam aaox3, NAD NC/AT, EOMI Supple No JVD Nrl S1/S2, No murmur CTA b/l no w/r/r soft nt/nd no LE edema b/l skin intact no focal deficits left pectoral incision intact, no hematoma mild ecchymosis Discharge Data Allergies Allergy/AdvReac Type Severity Reaction Status Date / Time Bactrim Allergy Unknown RASH Verified 04/14/18 12:03 codeine AdvReac Mild nausea Verified 04/14/18 12:03 Procedures Performed Operation Date: 02/13/19 08:00 Actual Procedures p Pacer with A/V Leads (Dual) - Mady Betts DO Ordered Studies 02/13/19 06:45 EP Lab Images for PACS ONCE Total Time Total Time Spent Total Time Spent (In Minutes): 30 Total Time Includes: Examination of the Patient, Discharge Planning, Medication Reconciliation and Other Discharge Plan Discharge Items Patient Disposition: Home - Self-Care Reason For Visit: Tachy-Kadeem Syndrome Discharge Diagnosis: tbs s/p dual chamber pacemaker Condition: Good Discharge Goals: Improve function Activity: As commented below Activity Comment: do not lift the left elbow over the left shoulder for 1 month Lifting: No more than 10 pounds Lifting Comment: do not lift more than 10 pounds with the left arm for 2 weeks Bathing: Keep incision dry Bathing Comment: can shower 02/15 do not scrub the incision let water run over it Driving/Machine Use Comment: I do not recommend driving due to history of syncope Non-emergency contact: [employer] And [employer] Tester Call non-emergency contact if: you have any medication questions Follow-up/Referrals: Maggie Dangelo MD [Primary Care Provider] - Diet: Heart Healthy Addtl Provider Instructions: device and wound check as scheduled at [facility] 02/23/2019Tuesday If you notice any swelling call my office immediately Prescriptions: New metoprolol succinate 25 mg Tablet Extended Release 24 Hr 25 mg PO QAM Qty: 30 RF: 0 Continued nitroglycerin [Nitrostat] 0.4 mg Tablet, Sublingual 0.4 mg PRN (Reason: Chest Pain) Qty: 0 RF: 0 allopurinol 300 mg Tablet 300 mg PO DAILY Qty: 0 RF: 0 atorvastatin [Lipitor] 80 mg Tablet 80 mg PO DAILY Qty: 0 RF: 0 Lantus U-100 Insulin 100 unit/mL Solution 30 unit subcut PM Qty: 0 RF: 0 lorazepam 2 mg Tablet 2 mg PO HS Qty: 0 RF: 0 insulin aspart U-100 100 unit/mL (3 mL) Insulin Pen 10 unit SUBCUT QAM Qty: 0 RF: 0 insulin aspart U-100 100 unit/mL (3 mL) Insulin Pen 18 unit SUBCUT BID Qty: 0 RF: 0 INSULIN ASPART (NOVOLOG PENFILL) 100 UNIT/ML INJECTION 18 unit subcut SUPPER Qty: 0 RF: 0 Nystatin (Nystop) 45 APPLN/15 GM powder 1 applic EXT PRN PRN (Reason: EXCORIATION) Qty: 1 RF: 0 amlodipine [Norvasc] 5 mg Tablet 5 mg PO DAILY Qty: 0 RF: 0 Aspirin Low Dose 81 MG CHEWABLE TAB 81 mg PO DAILY Qty: 0 RF: 0 torsemide [Demadex] 20 mg Tablet 20 mg PO BID Qty: 0 RF: 0 nystatin-triamcinolone 100,000-0.1 unit/g-% Cream 1 applic TOPICAL BID Qty: 0 RF: 0 cyclobenzaprine 10 MG tablet 10 mg PO HS PRN (Reason: Spasms) Qty: 0 RF: 0 Lantus U-100 Insulin 100 unit/mL Solution 50 unit SUBCUT DAILY Qty: 0 RF: 0 Cefuroxime Axetil 250 MG tablet 250 mg PO DAILY 3 Days Qty: 3 RF: 0 Metolazone (Zaroxolyn) 5 MG tablet 5 mg PO MWF 30 Days Qty: 15 RF: 0 potassium chloride 20 mEq Tablet Extended Release 20 meq PO BID RF: 0 Stand-Alone Forms: [facility] Discharge Orders: Discharge Order (Routine); Ordered 02/14/19 Ordered By: Mady Betts Admission Data Admit Date/Time: 02/13/19 08:50 Attending Provider: Mady Betts Admit Provider: Mady Betts Primary Care Provider: Maggie Dangelo Other Providers: Mike Lira Service: Telemetry
[2019-02-13] MEDS ORDERED: NYSTATIN POWDER 15GM BTL EXT PRN (10:06)
[2019-02-13] MEDS: TORSEMIDE 20 MG TAB PO SCH ×2 (11:04→15:56)
[2019-02-13] MEDS: METOPROLOL SUCC 25MG EXT REL TAB PO SCH (11:04)
[2019-02-13] MEDS: cefUROXime axetil 250 MG TABLET PO SCH (11:05)
[2019-02-13] MEDS: INSULIN ASPART 100 UNITS/ML 3 ML PEN SQ SCH ×3 (11:09→17:29)
[2019-02-13] MEDS: NYSTATIN/TRIAMCIN CR 15 GM TUBE EXT SCH (20:59)
[2019-02-13] MEDS: POTASSIUM CHLORIDE 20 MEQ TABCR PO SCH (20:59)
[2019-02-13] MEDS ORDERED: INSULIN GLARGINE 100 UNIT/ML VIAL SQ SCH (21:00)
[2019-02-13] MEDS ORDERED: LORazepam 1 MG TAB PO SCH (21:00)
[2019-02-13] MEDS: OXYCODONE/ACETAMINOPHEN 5mg/325mg TAB PO PRN (21:30)
[2019-02-14 03:31] VITALS: TEMP 97.9
[2019-02-14] MEDS: OXYCODONE/ACETAMINOPHEN 5mg/325mg TAB PO PRN (06:23)
--- NOTE | 2019-02-14 06:24 | XRay Report ---
XR chest 2V routine CLINICAL HISTORY: post implant postoperative COMPARISON STUDY: 04/14/2018 FINDINGS: Placement of a permanent bipolar cardiac pacemaker. Leads appear to be in good position. No evidence for pneumothorax. Improved prominence of pulmonary vasculature. IMPRESSION: Placement of a permanent bipolar cardiac pacemaker with leads in good position. The above report was generated using voice recognition software. It may contain grammatical, syntax or spelling errors. Electronically signed by: Mike Berman M.D. 02/14/2019 6:22 AM
[2019-02-14 07:08] VITALS: BP 138/71; PULSE 61; O2SAT 93
[2019-02-14] MEDS: METOPROLOL SUCC 25MG EXT REL TAB PO SCH (07:49)
[2019-02-14] MEDS: POTASSIUM CHLORIDE 20 MEQ TABCR PO SCH (07:49)
[2019-02-14] MEDS: cefUROXime axetil 250 MG TABLET PO SCH (07:49)
[2019-02-14] MEDS: INSULIN ASPART 100 UNITS/ML 3 ML PEN SQ SCH (07:52)
[2019-02-14] MEDS: TORSEMIDE 20 MG TAB PO SCH (07:53)
[2019-02-14] MEDS: NYSTATIN/TRIAMCIN CR 15 GM TUBE EXT SCH (07:54)
[2019-02-14] MEDS ORDERED: ALLOPURINOL 300 MG TAB PO SCH (09:00)
[2019-02-14] MEDS ORDERED: AMLODIPINE BESYLATE 5 MG TAB PO SCH (09:00)
[2019-02-14] MEDS ORDERED: metOLazone 5 MG TABLET PO SCH (09:00)
[2019-02-14] MEDS ORDERED: ASPIRIN 81 MG ECTAB PO SCH (09:00)
[2019-02-14] MEDS ORDERED: ATORVASTATIN 40 MG TAB PO SCH (09:00)
[2019-02-14] MEDS ORDERED: INSULIN GLARGINE 100 UNIT/ML VIAL SQ SCH (09:00)
--- NOTE | 2019-02-14 23:54 | Operative Report ---
DATE OF OPERATION: 02/13/2019 PREOPERATIVE DIAGNOSIS: Syncope and tachybrady syndrome. POSTOPERATIVE DIAGNOSIS: Syncope and tachybrady syndrome. PROCEDURE: Dual chamber rate responsive permanent pacemaker under fluoroscopic guidance. SURGEON: Mady Betts DO. RESISTOR INSPECTOR: None. ANESTHESIA: Monitored conscious sedation administered under my supervision by Kunal Muro. Start time 8:29, end time 9:24. Total of 5 mg of Versed, 125 mcg of fentanyl. INTRAVENOUS FLUIDS: 32 mL. ANTIBIOTICS: 2 grams of Ancef. BLOOD LOSS: 15 mL. URINE OUTPUT: Not applicable. SPECIMENS: None. FINDINGS: See below. DRAINS: None. INDICATIONS: This is a 78-year-old female with a past medical history for syncope back in November 2018 where then she wore a Zio patch which showed tachybrady syndrome wherein she was referred to EP. She also has a past medical history of coronary artery disease, history of non-STEMI with diffuse mild coronary artery disease. She had a catheterization in May of 2002 at this time where she got a bare metal stent to the mid RCA at the [facility]. She also had at that time a known long mid 60% LAD lesion that narrows the Diag at the ostium by 50%, hypertension, hyperlipidemia, diabetes, chronic kidney disease, obesity, chronic back pain with spinal stenosis, hyperparathyroidism, diabetic foot ulcer, and atrial arrhythmias as seen on the Zio patch. Due to the evidence of tachybrady syndrome, she was recommend a dual chamber pacemaker to better treat the SVT. CONSENT: Consent was obtained prior to the patient going into the electrophysiology lab. The patient was informed of the risks, benefits, and alternatives to the procedure. Risks include, but not limited to, sudden cardiac , cardiac arrhythmias, cerebrovascular accident, myocardial infarction, injury to the blood vessels, chamber of the heart, lung, bleeding, and infection. The patient understood these risks and agreed to the procedure as planned. Informed consent was obtained. DESCRIPTION OF PROCEDURE: The patient was brought into the electrophysiology lab in a fasting state. She was connected to continuous cardiac monitoring. A timeout was performed to ensure patient's identity and procedure correctly. The patient was prepped and draped over the left infraclavicular space in a normal surgical standard fashion. Monitored conscious sedation was given throughout the procedure for patient's comfort level. [place] precautions were maintained throughout the procedure. A 10 mL of 1% lidocaine and bupivacaine mixture were given in the left deltopectoral groove. Incision was made in the left deltopectoral groove. Blunt dissection was performed down to identify the cephalic vein. The cephalic vein was identified and isolated using 0 silk ties. The vein was nicked with an 11-blade and a guidewire was inserted without any resistance. An 8-Paraguayan sheath was inserted over the guidewire without any resistance. Dilator was removed and a second guidewire was inserted through the 8-[place]aguayan sheath to allow for retained venous access. The sheath was then removed, flushed, dilator reinserted over it and then it was reinserted over the guidewire. Guidewire and dilator removed and the right ventricular pacing lead was advanced into right ventricle and positioned into the right ventricular apex under fluoroscopic guidance. There was adequate pacing and sensing thresholds and no diaphragmatic stimulation with high output pacing. The 8-Paraguayan sheath was peeled away and lead was fixated to pectoralis muscle using 0 silk suture. A second 8-[place]aguayan sheath was inserted over the retained guidewire without any resistance. The guidewire and dilator removed. The right atrial lead was then advanced into right atrium and positioned into right atrial appendage under fluoroscopic guidance. There was adequate pacing and sensing thresholds and no diaphragmatic stimulation in high output pacing. The 8-[place]aguayan sheath was peeled away and the lead was fixated to pectoralis muscle using 0 silk suture. A pacemaker pocket was created using blunt dissection over the pectoralis muscle within the pectoral fascia. The pocket was flushed with copious amounts of bacitracin and saline wash and inspected for hemostasis. The pulse generator was then attached to the leads, making sure that the pins were in appropriate position, passed set screws and set screws were tightened. Pulse generator was then placed in an antibiotic pouch followed then by being placed in the pocket, making sure that the leads were lying flat beneath the device. A stay stitch using 0 silk suture was used to secure the device to the pectoralis muscle. The incision was then closed in a 3-layer fashion using 2-0 Vicryl interrupted suture followed by 3-0 Vicryl suture followed by Monocryl running stitch and Dermabond was applied. EQUIPMENT: 1. The pulse generator is a [employer] XT DR TERESA Varela [id number], serial number [id number]. 2. Antibiotic pouch is a Tyrx pouch with a reference [id number], lot #[id number], expiration is 02/18/2019. 3. Right atrial lead Medtronic 5076-52 cm, serial number [id number]. 4. Right ventricular lead, Medtronic 5076-58 cm, serial number [id number]. INTRAOPERATIVE TESTIN. Right atrial lead: P-wave is 2.5 millivolts, impedance 646 ohms, threshold 1.375 volts at 0.4 milliseconds. 2. Right ventricular lead: R-waves 8.8 millivolts, impedance 1004 ohms, threshold 0.625 volts at 0.4 milliseconds. FINAL PARAMETERS TO THE DEVICE: 1. Right atrial lead: P-waves 2.8 millivolts, impedance 684 ohms, threshold 1 volt at 0.4 milliseconds. 2. Right ventricular lead: R-waves 12.3 millivolts, impedance 1102 ohms, threshold 0.75 volts at 0.4 milliseconds. FINAL PARAMETERS: MVP-R 60/130. Right atrial amplitude 3.5 volts, pulse width 0.4 milliseconds, sensitivity 0.3 millivolts. Right ventricular amplitude 3.5 volts, pulse width 0.4 milliseconds, sensitivity 0.9 millivolts. IMPRESSION: Successful implantation of a dual chamber rate responsive permanent pacemaker under fluoroscopic guidance secondary to tachybrady syndrome. PLAN: Monitor patient overnight, 12-lead ECG, chest x-ray. She is not allowed to lift left elbow or left shoulder for 1 month. She cannot lift more than 10 pounds with the left arm for 2 weeks. She can shower in 2 days, let water run over the incision, do not scrub it. She should follow up in our [facility] office for device and wound check next week and we will start her on metoprolol 25 mg daily in hopes that this will control her SVT. We might need to increase this dose and I will defer to the primary lehr loader for this. I attest to the content of the Intraoperative Record and any orders documented therein. Any exceptions are noted below. AMANDA
== END 2019-02-14 10:30 | disposition home or self-care (01) ==
LOC: ASU 06:30 → 2S 06:30

== ENCOUNTER 2019-10-12 17:50 | Inpatient (IN) ==
--- NOTE | 2019-10-12 18:20 | Emergency Department Note ---
Entered by Magalis Monson acting as a scribe for Washington Rojas MD ED Provider Note CHIEF COMPLAINT: Chest Pain HISTORY OF PRESENT ILLNESS: The patient is a 78 year old female who takes baby ASP daily who presents to the Emergency Room with complaints of chest pain. The patient states that she has been experiencing intermittent chest discomfort below her breast bone for the last week which radiates in between her shoulder blades (no radiation to neck or arms). She explains that these episodes last for about 20-30 minutes and occur while she is sitting down, not with exertion and not exacerbated with PO. The patient reports that her current discomfort is similar to indigestion and a 4/10 in severity. However, her discomfort was an 8/10 at its worst this week and was associated with nausea (now resolved). The patient also includes that she has baseline leg swelling and states that it is worse than usual. Additionally she noticed new foot swelling 1 day ago. The patient has a history of chest pain leading up to n angioplasty. She admits that today's discomfort than the pain she experienced in the past. Of note, the patient follows with cardiology and nephrology. She also took her dose of aspirin today. Pt denies LOC, headache, fevers, chills, diaphoresis, lightheadedness, visual changes, breathing difficulties, vomiting, abdominal pain, melena, hematochezia, urinary symptoms, numbness, weakness, lymphadenopathy, rash, or other complaints. REVIEW OF SYSTEMS: See HPI for pertinent positives and negatives. A total of ten systems were reviewed and were otherwise negative. PMHx/PSHx: , HTN, DM SOCIAL HISTORY: Patient lives at home. PHYSICAL EXAM: GENERAL: Awake, alert, uncomfortable-appearing, in no distress HENT: Normocephalic, atraumatic. Oropharynx unremarkable. EYES: PERRL. Normal conjunctiva. Sclera non-icteric. NECK: Inspection normal. Non-tender. Supple. No nuchal rigidity. FROM. No masses. RESPIRATORY: Clear to auscultation. No wheezes. No rales. Normal respiratory effort. CARDIAC: Normal rate. Normal rhythm. No murmurs. No rubs. Extremities warm and well perfused. Pulses equal. No JVD. GI: Soft, non-distended. No tenderness to palpation. No rebound or guarding. No masses. RECTAL: Deferred. MUSCULOSKELETAL: Atraumatic. Chest examination reveals no tenderness. The back is symmetrical on inspection without obvious abnormality. There is no CVA tenderness to palpation. No joint edema. LOWER EXTREMITIES: Calves are equal size bilaterally and non-tender. 1+ LE edema. No discoloration. NEURO: Normal sensorium. No sensory or motor deficits noted. SKIN: No rash or jaundice noted. EMERGENCY DEPARTMENT COURSE: 1819: Past medical records reviewed. The patient was evaluated in room C11B, and a complete history and physical examination were performed. 1821: The patient was placed on a ekg monitor tech. 1928: I checked on the patient and updated her on test results. She took 1 nitro and is now pain free. Her troponin is positive and she will be admitted for further evaluation. The patient verbally expressed understanding and agreement of the treatment plan. The patient will be evaluated for further treatment. 1930: I paged Dr. Castillo, [facility] Hospitalist. 1958: I spoke to Dr. Castillo who will further evaluate the patient. MEDICAL DECISION MAKING: Prior records/ancillary studies reviewed. Triage Nursing notes reviewed and agree them. Additional history obtained from the family. The patient's history was concerning for chest pain. Differential diagnosis: Etiologies such as cardiac ischemia, aortic dissection, pulmonary embolism, pneumonia, pneumothorax, musculoskeletal, infections, pericarditis, myocarditis, esophageal rupture, gastrointestinal, as well as others were entertained. Physical examination: As above. ER treatment provided: Aspirin Sublingual nitroglycerin On reassessment the patient felt better. Nitropaste Diagnostic interpretation by me: The electrocardiogram was negative for pathologic change. The labs revealed an unremarkable CBC. Chemistry panel revealed acute kidney injury. Mildly elevated troponin. Imaging studies: Chest x-ray negative. Consultation: A consultation was placed with the hospitalist. The case was discussed and diagnostics were reviewed. The patient was evaluated in the ER for further treatment. Continuous Cardiac Monitoring: An order was placed for continuous cardiac monitoring. The monitor shows a rate of 74 with atrial paced rhythm with prolonged AV conduction and no PVCs. IMPRESSION: * Substernal chest pain * Elevated troponin * Hypokalemia * ASPEN PLAN: Admitted. Being evaluated by hospitalist. The scribe's documentation has been prepared under my direction and personally reviewed by me in its entirety. I confirm that the note above accurately reflects all work, treatment, procedures, and medical decision making performed by me. Impression & Plan Substernal chest pain, ASPEN (acute kidney injury), Elevated troponin, Hypokalemia Past Med/Surg History Medical History Bradycardia (Acute) Cataracts, bilateral (Acute) Coronary artery disease (Acute) Coronary artery disease (Acute) Diabetes Edema (Chronic) Gout (Acute) Hyperparathyroidism (Chronic) Hypertension (Chronic) Kidney disease, chronic, stage IV (severe, EGFR 15-29 ml/min) (Chronic) Neuropathy (Acute) Weakness (Acute) Surgical History History of 3 sections (Acute) History of total right knee replacement (Acute) S/P angioplasty with stent (Acute) Family History Mother Heart disease Diabetes Brother Diabetes Social History Preferred Language: Vietnamese Communication Ability: Effective Oncology Account Specialist Required: No Beliefs That Will Affect Care: None Current Living Situation: Alone Other Information That Helps Us Care for You: No Feels Safe at Home: Yes Safety Concerns: Feels Safe At This Time Smoking Status: Never smoker Hx Alcohol Use: No Hx Substance Use: No Results & Data Vital Signs Vital Signs - 24 hr 10/12/19 17:55 10/12/19 18:01 10/12/19 18:38 Temperature 36.5 C Temperature Source Oral Pulse Rate 74 Pulse Rate [Bilateral Apical] Pulse Rhythm Regular Pulse Strength Normal Respiratory Rate 20 Respiratory Effort / Characteristics Non-Labored Spontaneous Respiratory Depth Normal Respiratory Pattern Regular Blood Pressure 172/75 H Blood Pressure [Right Arm] Blood Pressure Mean 107 Blood Pressure Mean [Right Arm] Blood Pressure Position Sitting Pulse Oximetry 99 96 Oxygen Delivery Method Room Air Room Air Room Air Sepsis Recent Fever Within 48 Hours No Sepsis New/Unexplained Change in Mental Status No Sepsis Action Taken by Nursing No Action Required 10/12/19 18:39 10/12/19 19:39 10/12/19 20:13 Temperature Temperature Source Pulse Rate 66 Pulse Rate [Bilateral Apical] 63 63 Pulse Rhythm Regular Pulse Strength Respiratory Rate 20 20 Respiratory Effort / Characteristics Respiratory Depth Respiratory Pattern Blood Pressure Blood Pressure [Right Arm] 120/59 L 145/61 H Blood Pressure Mean Blood Pressure Mean [Right Arm] 79 89 Blood Pressure Position Pulse Oximetry 96 98 98 Oxygen Delivery Method Room Air Room Air Sepsis Recent Fever Within 48 Hours Sepsis New/Unexplained Change in Mental Status Sepsis Action Taken by Nursing 10/12/19 20:45 Temperature Temperature Source Pulse Rate Pulse Rate [Bilateral Apical] 65 Pulse Rhythm Pulse Strength Respiratory Rate 20 Respiratory Effort / Characteristics Respiratory Depth Respiratory Pattern Blood Pressure Blood Pressure [Right Arm] 159/95 H Blood Pressure Mean Blood Pressure Mean [Right Arm] 116 Blood Pressure Position Pulse Oximetry 99 Oxygen Delivery Method Sepsis Recent Fever Within 48 Hours Sepsis New/Unexplained Change in Mental Status Sepsis Action Taken by Correction Medications Current Medication List: was personally reviewed by me Laboratory Data Attestation: I reviewed the patient's lab results. Result diagrams: 10/12/19 18:39 10/12/19 18:39 Lab Results 10/12/19 10/12/19 10/12/19 Range/Units 18:39 18:39 19:10 WBC 6.62 (4.8-10.8) K/uL RBC 4.31 (4.2-5.4) M/uL Hgb 13.9 (12.0-16.0) g/dL Hct 41.6 (37-47) % MCV 96.5 (80-100) fL MCH 32.3 (25-34) pg MCHC 33.4 (32-36) g/dL RDW Std Deviation 50.4 H (36.4-46.3) fL RDW Coeff of Favian 14.3 (11.5-14.5) % Plt Count 135 (130-400) K/uL MPV 11.6 H (7.4-10.4) fL Immature Gran % (Auto) 0.2 % Neut % (Auto) 67.4 % Lymph % (Auto) 21.9 % [place] % (Auto) 8.9 % Eos % (Auto) 1.4 % Baso % (Auto) 0.2 % Immature Gran # (Auto) 0.01 (0.00-0.02) K/uL Neut # (Auto) 4.47 (1.4-6.5) K/uL Lymph # (Auto) 1.45 (1.2-3.4) K/uL [place] # (Auto) 0.59 (0.11-0.59) K/uL Eos # (Auto) 0.09 (0-0.5) K/uL Baso # (Auto) 0.01 (0-0.2) K/uL PT 10.3 (9.0-12.0) Seconds INR 1.0 (0.9-1.1) APTT 23.3 (21.0-31.0) Seconds PTT Ratio 0.9 Sodium 137 (136-145) mmol/L Potassium 3.0 L (3.5-5.1) mmol/L Chloride 99 (98-107) mmol/L Carbon Dioxide 30 (21-32) mmol/L Anion Gap 8.0 (3-11) BUN 70 H (7-18) mg/dl Creatinine 2.24 H (0.6-1.2) mg/dl Est Cr Clr Drug Dosing 23.0 ml/min Est GFR ( Amer) 23.7 Est GFR (Non-Af Amer) 20.5 BUN/Creatinine Ratio 31.3 H (10-20) Glucose 205 H (70-99) mg/dl Calcium 10.3 H (8.5-10.1) mg/dl Total Bilirubin 0.3 (0.2-1) mg/dl AST 30 (15-37) U/L ALT 34 (12-78) U/L Alkaline Phosphatase 60 (45-117) U/L Troponin I 0.047 H* (0-0.045) ng/ml Total Protein 7.4 (6.4-8.2) gm/dl Albumin 3.3 L (3.4-5.0) gm/dl Globulin 4.1 H (2.5-4.0) gm/dl Albumin/Globulin Ratio 0.8 L (0.9-2) Lipase 136 (73-393) U/L Specimen Hemolysis Administered Medications Insulin Glargine (Lantus Solostar Pen) 15 units SC BID [facility] Stop: 11/11/19 22:59 Last Admin: 10/12/19 23:55 Dose: 15 units Documented by: [id number] Cosigned by: [id number] Nitroglycerin (Nitrostat) 0.4 mg SL Q5M PRN PRN Reason: Chest Pain Stop: 11/11/19 18:24 Last Admin: 10/12/19 18:57 Dose: 0.4 mg Documented by: [id number] Discontinued Medications Aspirin (Aspirin) 243 mg PO NOW STA Stop: 10/12/19 18:27 Last Admin: 10/12/19 18:57 Dose: 243 mg Documented by: [id number] Sodium Chloride (Nss 1000ml) 1,000 mls @ 125 mls/hr IV .Q8H STA Stop: 10/13/19 03:32 Last Infusion: 10/12/19 22:47 Dose: 0 mls/hr Documented by: [id number] Admin: 10/12/19 20:07 Dose: 125 mls/hr Documented by: [id number] Potassium Chloride (K Rigoberto / Wtr) 10 meq in 100 mls @ 100 mls/hr IV ONE ONE Stop: 10/12/19 20:32 Last Infusion: 10/12/19 21:17 Dose: 0 mls/hr Documented by: [id number] Admin: 10/12/19 20:07 Dose: 100 mls/hr Documented by: [id number] Lorazepam (Ativan) 2 mg PO NOW STA Stop: 10/12/19 23:45 Last Admin: 10/12/19 23:55 Dose: 2 mg Documented by: [id number] Nitroglycerin (Nitro-Bid 2%) 0.5 inch EXT NOW STA Stop: 10/12/19 19:33 Last Admin: 10/12/19 20:07 Dose: 0.5 inch Documented by: [id number] Potassium Chloride (Klor-Con M20) 20 meq PO NOW STA Stop: 10/12/19 19:34 Last Admin: 10/12/19 20:07 Dose: 20 meq Documented by: [id number] Imaging Data Radiologist's Impression: Radiology results as stated below per my review and the radiologist's interpretation: XR chest 1V portable HISTORY: Atypical Chest Pain COMPARISON: Chest 02/14/2019. FINDINGS: Left-sided dual-chamber pacemaker. The heart is normal in size. Mitral annulus calcifications are again noted. No pleural effusions. No pneumothorax. The lungs are clear. No evidence for pulmonary edema. IMPRESSION: No acute process. ACT 112: Negative or not required by law. Electronically signed by: Stevo Alvarez M.D. 10/12/2019 6:24 PM ECG Data Attestation: I personally reviewed and interpreted this ECG as follows: Indication: + chest pain Rate (beats per minute): 80 Rhythm: other (atrial paced rhythm with prolonged AV conduction) ECG Intervals/blocks: + Normal QRS ECG [place]: + Normal ECG ST segments: + T-wave inversions (lateral ) ECG Findings: no PVCs Comparison ECG Date: from (02/13/19) Change: the following changes noted (lateral changes are old and ectopy has resolved) Blood Pressure Blood Pressure Findings: Elevated blood pressure Blood Pressure Disposition: further management by hospitalist Discharge Plan Visit Data *Final* Discharge Date/Time: 10/12/19 21:51 Chief Complaint: Chest Pain Stated Complaint: CHEST PAIN - REF BY DR. LEMONS ED Provider: Washington Rojas Discharge Problem: Substernal chest pain, ASPEN (acute kidney injury), Elevated troponin, Hypokalemia Patient Disposition: Admitted As Inpatient Discharge Instructions Interventions: ED Discharge Assessment Last Done: 10/12/19 21:51 The scribe's documentation has been prepared under my direction and personally reviewed by me in its entirety. I confirm that the note above accurately reflects all work, treatment, procedures, and medical decision making performed by me.
[2019-10-12] MEDS ORDERED: ASPIRIN CHEW 324 MG PO STA (18:26)
--- NOTE | 2019-10-12 18:26 | XRay Report ---
XR chest 1V portable HISTORY: Atypical Chest Pain COMPARISON: Chest 02/14/2019. FINDINGS: Left-sided dual-chamber pacemaker. The heart is normal in size. Mitral annulus calcificatio ns are again noted. No pleural effusions. No pneumothorax. The lungs are clear. No evidence for pulmo nary edema. IMPRESSION: No acute process. ACT 112: Negative or not required by law. Electronically signed by: Stevo Alvarez M.D. 10/12/2019 6:24 PM
[2019-10-12] MEDS: NITROGLYCERIN SL 0.4 MG/TAB TAB SL PRN (18:57)
[2019-10-12 19:03] LABS: Basophils # (auto) 0.01 K/uL (0-0.2); Basophils % (auto) 0.2 %; Eosinophils # (auto) 0.09 K/uL (0-0.5); Eosinophils % (auto) 1.4 %; Hematocrit (blood only) 41.6 % (37-47); Hemoglobin 13.9 g/dL (12.0-16.0); Immature Granulocytes # (auto) 0.01 K/uL (0.00-0.02); Immature Granulocytes % (auto) 0.2 %; Lymphocytes # (auto) 1.45 K/uL (1.2-3.4); Lymphocytes % (auto) 21.9 %; Mean Corpuscular Hemoglobin 32.3 pg (25-34); Mean Corpuscular Hgb Conc 33.4 g/dL (32-36); Mean Corpuscular Volume 96.5 fL (80-100); Mean Platelet Volume 11.6 fL (7.4-10.4); Monocytes # (auto) 0.59 K/uL (0.11-0.59); Monocytes % (auto) 8.9 %; Neutrophils # (auto) 4.47 K/uL (1.4-6.5); Neutrophils % (auto) 67.4 %; Platelet Count 135 K/uL (130-400); RDW Coefficient of Variation 14.3 % (11.5-14.5); RDW Standard Deviation 50.4 fL (36.4-46.3); Red Blood Count 4.31 M/uL (4.2-5.4); White Blood Count 6.62 K/uL (4.8-10.8)
[2019-10-12 19:28] LABS: Albumin Globulin Ratio 0.8 (0.9-2); Albumin Level 3.3 gm/dl (3.4-5.0); BUN Creatinine Ratio 31.3 (10-20); Bilirubin,Total 0.3 mg/dl (0.2-1); Calcium 10.3 mg/dl (8.5-10.1); Est GFR (African American) 23.7; Est GFR (Non-African American) 20.5; Globulin 4.1 gm/dl (2.5-4.0); Total Protein 7.4 gm/dl (6.4-8.2); Troponin I 0.047 ng/ml (0-0.045)
[2019-10-12] MEDS ORDERED: NITROGLYCERIN 2% OINTMENT 30GM TUBE EXT STA (19:32)
[2019-10-12] MEDS ORDERED: POTASSIUM CHLORIDE 20 MEQ TABCR PO STA (19:33)
[2019-10-12] MEDS ORDERED: POTASSIUM CHLORIDE / WTR 10 MEQ/100 ML PLCT IV ONE (19:33)
[2019-10-12] MEDS ORDERED: SODIUM CHLORIDE 0.9% 1000ML 1,000 ML IV STA (19:33)
[2019-10-12 19:44] LABS: Partial Thromboplastin Ratio 0.9; Partial Thromboplastin Time 23.3 Seconds (21.0-31.0); Prothrombin Time 10.3 Seconds (9.0-12.0)
--- NOTE | 2019-10-12 21:05 | History & Physical Report ---
Date of Service October 12, 2019 Assessment & Plan (1) Substernal chest pain: Not currently present. Concern for worsening/unstable coronary plaque that is already known. Mild troponin elevation present, will trend. Considered aortic dissection but low prob, and has equal bilateral blood pressures and intermittent pain. Doesn't appear to be MSK in nature as she is not that fundtional and there is no TTP. ?demand ischemia but with uncertain insult. Echo in am to ensure no new wall motion abnormalities. Appreciate Cardiology input. Cont medical management of known CAD. (2) Elevated troponin: as above. (3) ASPEN (acute kidney injury): Possibly 2/2 increased diuretics recently, which are on hold. As she was reporting some bloating earlier in the week prompting this change, will hold on any further IVF also. She is euvolemic on exam. (4) Hypokalemia: 2/2 diuretic use. Replaced in ER. Recheck this in am and replace this and Mg as needed. (5) Morbid obesity: (6) Diabetes mellitus type 2: Well controlled A1C as of last fall. Repeat pending in am. Cont basal bolus insulin while hospitalized. (7) DVT prophylaxis: Heparin Full Dispo-uncertain pending Cardiology recommendations. [facility] History of Present Illness Chief Complaint: chest pain Primary Care Provider: RADHA LEAVITT 78-year-old obese female with controlled diabetes with complications in addition to known CAD status post bare-metal stent to RCA in 2001 presents with an increase in frequency of chest pain in the last 2 weeks. She reports feeling an onset of a stabbing pain in the center of her chest that would radiates to her back which has occurred at rest, presumably unprovoked. Her first episode was approximately 2 weeks ago and lasted about 10 to 15 minutes. She had no associated symptoms of lightheadedness, palpitations, nausea, sweating, shortness of breath. The episode again occurred at least 2 more times with the most recent time occurring this afternoon prompting her presentation to the ER. All episodes are described the same out associated with other symptoms. She had recently made a phone call to the heart failure clinic who manages her reporting bloating, and received guidance to double her dose of torsemide to 40 mg p.o. twice daily over the next 3 days. Lab work however reveals an elevation in her creatinine from baseline. Work-up also reveals an elevated troponin of 0.047 a potassium of 3.0 and an elevated glucose level of 205. Her chest x-ray is unremarkable and her EKG reveals a paced rhythm that appears unchanged from prior. Review of systems is otherwise negative. Allergies Allergy/AdvReac Type Severity Reaction Status Date / Time Bactrim Allergy Unknown RASH Verified 04/14/18 12:03 sulfamethoxazole Allergy Unknown RASH Verified 10/12/19 20:21 trimethoprim Allergy Unknown RASH Verified 10/12/19 20:21 codeine AdvReac Mild nausea Verified 10/12/19 20:21 Home Medications Home Medications Medication Instructions Recorded Confirmed Type allopurinol 300 mg PO DAILY #0 tab 05/03/12 10/12/19 History atorvastatin [Lipitor] 80 mg PO DAILY #0 tab 08/04/15 10/12/19 History Lantus U-100 Insulin 26 unit SUBCUT PM #0 04/07/17 10/12/19 History insulin aspart U-100 10 unit SUBCUT QAM #0 04/07/17 10/12/19 History insulin aspart U-100 18 unit SUBCUT BID #0 04/07/17 10/12/19 History lorazepam 2 mg PO HS #0 04/07/17 10/12/19 History amlodipine [Norvasc] 5 mg PO DAILY #0 tab 11/27/17 10/12/19 History Lantus U-100 Insulin 43 unit SUBCUT QAM #0 pen 04/14/18 10/12/19 History nystatin-triamcinolone 1 applic TOPICAL BID #0 04/14/18 10/12/19 History nitroglycerin 0.4 mg sublingual 0.4 mg SUBLINGUAL Q5M PRN #0 tab 04/16/19 10/12/19 History tablet potassium chloride 20 mEq 20 meq PO BID tab 04/16/19 10/12/19 History tablet,extended release spironolactone 25 mg tablet 12.5 mg PO DAILY tab 04/16/19 10/12/19 History aspirin [Aspir-81] 81 mg PO DAILY 10/12/19 10/12/19 History metoprolol succinate [Toprol XL] 25 mg PO DAILY 10/12/19 10/12/19 History torsemide 20 mg PO BID 10/12/19 10/12/19 History Past Med/Surg History Medical History Bradycardia (Acute) Cataracts, bilateral (Acute) Coronary artery disease (Acute) Coronary artery disease (Acute) Diabetes Edema (Chronic) Gout (Acute) Hyperparathyroidism (Chronic) Hypertension (Chronic) Kidney disease, chronic, stage IV (severe, EGFR 15-29 ml/min) (Chronic) Neuropathy (Acute) Weakness (Acute) Surgical History History of 3 sections (Acute) History of total right knee replacement (Acute) S/P angioplasty with stent (Acute) Family History Mother Heart disease Diabetes Brother Diabetes Social History Preferred Language: Peruvian Communication Ability: Effective 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[employer] Processing Required: No Beliefs That Will Affect Care: None Current Living Situation: Alone Other Information That Helps Us Care for You: No Feels Safe at Home: Yes Safety Concerns: Feels Safe At This Time Smoking Status: Never smoker Hx Alcohol Use: No Hx Substance Use: No Review of Systems Review of Systems: All systems reviewed & are unremarkable except as noted in HPI & below Physical Exam Physical Exam: CONSTITUTIONAL: obese, bilateral upper arm blood pressures are as follows (L-129/68, R-127/67), other vitals as above, generally well-appearing EYES: normal conjunctivae, no scleral icterus ENT: MMM RESPIRATORY: clear to auscultation bilaterally, no crackles, rales or wheezes, normal respiratory effort CARDIOVASCULAR: regular rate and rhythm, S1 and 2 heard without murmurs, gallops or rubs, no JVD, no peripheral edema, no carotid bruits GASTROINTESTINAL: soft, nontender, nondistended MUSCULOSKELETAL: strength 5/5 throughout, head is normocephalic and atraumatic SKIN: warm and dry NEUROLOGIC: CN 2-12 grossly intact, normal cognition, normal speech, no gross focal deficits. PSYCHIATRIC: alert cooperative and oriented to person, place and time. Results & Data Vital Signs (Past 12 Hours) Vital Signs Temp Pulse Pulse Resp BP BP Pulse Ox 10/12/19 20:45 65 20 159/95 H 99 10/12/19 20:13 63 20 145/61 H 98 10/12/19 19:39 63 20 120/59 L 98 10/12/19 18:39 66 96 10/12/19 18:38 96 10/12/19 17:55 36.5 C 74 20 172/75 H 99 Laboratory Results Short CBC 10/12/19 Range/Units 18:39 WBC 6.62 (4.8-10.8) K/uL Hgb 13.9 (12.0-16.0) g/dL Hct 41.6 (37-47) % Plt Count 135 (130-400) K/uL BMP 10/12/19 18:39 Sodium 137 Potassium 3.0 L Chloride 99 Carbon Dioxide 30 BUN 70 H Creatinine 2.24 H Glucose 205 H Calcium 10.3 H Cardiac Enzymes 10/12/19 Range/Units 18:39 Troponin I 0.047 H* (0-0.045) ng/ml Liver Function 10/12/19 Range/Units 18:39 Total Bilirubin 0.3 (0.2-1) mg/dl AST 30 (15-37) U/L ALT 34 (12-78) U/L Alkaline Phosphatase 60 (45-117) U/L Albumin 3.3 L (3.4-5.0) gm/dl Medications Administered Current Inpatient Medications Sodium Chloride (Nss 1000ml) 1,000 mls @ 125 mls/hr IV .Q8H STA Stop: 10/13/19 03:32 Last Admin: 10/12/19 20:07 Dose: 125 mls/hr Documented by: Nitroglycerin (Nitrostat) 0.4 mg SL Q5M PRN PRN Reason: Chest Pain Stop: 11/11/19 18:24 Last Admin: 10/12/19 18:57 Dose: 0.4 mg Documented by:
[2019-10-12] MEDS ORDERED: ONDANSETRON INJ 2 MG/ML 2 ML VIAL IV PRN (22:44)
[2019-10-12] MEDS ORDERED: NITROGLYCERIN SL 0.4 MG/TAB TAB SL PRN (22:44)
[2019-10-12] MEDS ORDERED: ACETAMINOPHEN 325 MG TAB PO PRN (22:44)
[2019-10-12] MEDS ORDERED: MoRPHine SULFATE 2 MG/ML CARP IV PRN (22:44)
[2019-10-12] MEDS ORDERED: POLYETHYLENE (MIRALAX) 17 GM PACK PO PRN (22:44)
[2019-10-12] MEDS ORDERED: GLUCOSE 40% GEL 15 GM TUBE PO PRN (22:53)
[2019-10-12] MEDS ORDERED: GLUCOSE 10 TABS/TUBE PO PRN (22:53)
[2019-10-12] MEDS ORDERED: GLUCAGON FOR INJ 1 MG VIAL SQ PRN (22:53)
[2019-10-12] MEDS ORDERED: DEXTROSE 50% 50 ML SYRINGE IV PRN (22:53)
[2019-10-12] MEDS ORDERED: CARBOHYDRATES FOR HYPOGLYCEMIA PO PRN (22:53)
[2019-10-12] MEDS ORDERED: LORazepam 1 MG TAB PO STA (23:44)
[2019-10-12] MEDS: INSULIN GLARGINE SOLOSTAR 100 UNITS/ML 3 ML PEN SC SCH (23:55)
[2019-10-13 07:24] LABS: Hematocrit (blood only) 38.8 % (37-47); Mean Corpuscular Hemoglobin 32.3 pg (25-34); Mean Corpuscular Hgb Conc 33.5 g/dL (32-36); Mean Corpuscular Volume 96.5 fL (80-100); Mean Platelet Volume 11.3 fL (7.4-10.4); Platelet Count 128 K/uL (130-400); RDW Coefficient of Variation 14.3 % (11.5-14.5); RDW Standard Deviation 50.2 fL (36.4-46.3); Red Blood Count 4.02 M/uL (4.2-5.4); White Blood Count 5.24 K/uL (4.8-10.8)
[2019-10-13 07:51] LABS: BUN Creatinine Ratio 38.4 (10-20); Calcium 9.6 mg/dl (8.5-10.1); Creatinine Clr Calc Pharmacy 29.7 ml/min; Est GFR (African American) 32.4; Magnesium 2.2 mg/dl (1.8-2.4)
[2019-10-13] MEDS: AMLODIPINE BESYLATE 5 MG TAB PO SCH (08:02)
[2019-10-13] MEDS: ATORVASTATIN 40 MG TAB PO SCH (08:03)
[2019-10-13] MEDS: allopurinoL 300 MG TAB PO SCH (08:04)
[2019-10-13] MEDS: SPIRONOLACTONE 25 MG TAB PO SCH (08:04)
[2019-10-13] MEDS: METOPROLOL SUCC 25MG EXT REL TAB PO SCH (08:04)
[2019-10-13] MEDS: POTASSIUM CHLORIDE 20 MEQ TABCR PO SCH ×2 (08:04→20:54)
[2019-10-13] MEDS: ASPIRIN 81 MG ECTAB PO SCH (08:05)
[2019-10-13] MEDS: INSULIN ASPART 100 UNITS/ML 3 ML PEN SC SCH ×4 (08:08→20:49)
[2019-10-13] MEDS: INSULIN GLARGINE SOLOSTAR 100 UNITS/ML 3 ML PEN SC SCH ×2 (08:09→20:53)
[2019-10-13 08:16] LABS: Estimated Average Glucose 146 mg/dl; Hemoglobin A1C 6.7 % (4.5-5.6)
[2019-10-13] MEDS: POTASSIUM CHLORIDE / WTR 10 MEQ/100 ML PLCT IV SCH ×3 (10:39→13:18)
--- NOTE | 2019-10-13 12:30 | Cardiology Consultation ---
Date of Consultation October 13, 2019 Assessment & Plan (1) Substernal chest pain: Patient is a 78-year-old female with known coronary artery disease with prior remote coronary intervention 2001 and compensated angina pectoris. She carries a history of longstanding diastolic and hypertensive heart failure, chronic renal insufficiency. Clinical history is notable for recent increasing lower extremity edema treated with increasing diuretic dose. Now presenting with symptoms of acute chest pressure pain x3-4 episodes over the past weeks time. Symptoms concerning for angina. EKGs without acute change. Troponin minimally elevated but flat Acute renal insufficiency superimposed on chronic renal sufficiency noted Plan agree with current therapies, topical nitrates continue usual medications. Will hold diuretics, supplement potassium and allow volume status to equilibrate. Patient may ultimately require diagnostic cardiac catheterization that would need to be performed at elevated risk due to acute renal insufficiency currently. Any further chest pains, will anticoagulate. Echocardiogram pending (2) Elevated troponin: (3) Edema: (4) Diastolic CHF, chronic: (5) CKD (chronic kidney disease) stage 3, GFR 30-59 ml/min: (6) ASPEN (acute kidney injury): History of Present Illness Reason for Consultation: Chest pain increasing Requesting Physician: Dr. Naqvi Attending Physician: Sandy Naqvi MD History of Present Illness Patient is a complex 78-year-old female with underlying issues 1. ASCVD 1. NSTEMI in May 2002. 2. Diffuse mild atherosclerotic coronary artery diease by May 22, 2002 diagnostic cardiac catheterization by Dr. Tc Mike at [facility]. 3. Single discrete high grade obstruction of the mid RCA status post PCI at [facility] with a 4.0 x 38 mm Penta bare metal stent. 4. Long 60% mid LAD stenosis extending into the origin of a large diagonal branch and narrowing it by 50%. 2. 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 Medtronic model [place] XT 3. Diastolic dysfunction 4. Right heart failure 5. Nocturnal hypoxemia. Suspect underlying sleep apnea (evaluation/treatment refused) 6. Preserved LV systolic function 7. No history of significant valvular heart disease. 8. Hypertension 9. Dyslipidemia with optimal LDL goal of < 70 mg/dL 10. Type II diabetes mellitus, insulin requiring with neuropathy 11. Chronic kidney disease, stage III with past acute injury followed by Dr. Fountain Patient presents now this admission noting gradual increase in weight over the past weeks time possibly secondary to dietary indiscretion. She has however experienced 3 episodes of substernal chest pressure all occurring with rest most profound episode day of presentation. Currently patient's comfortable without complaint denies dizziness lightness syncope near syncope notes no fevers or chills. Notes no cough hoarseness wheeze or hemoptysis. No recent illness. Has been following with [facility] at home and had recent increase in torsemide dosing due to increasing lower extremity edema. Chest heaviness and pressure resulted in ER presentation. No bleeding difficulties no melena medication. No changes in sleep pattern or disruption. No tenderness or irritation overlying pacemaker site. Allergies Allergy/AdvReac Type Severity Reaction Status Date / Time Bactrim Allergy Unknown RASH Verified 04/14/18 12:03 sulfamethoxazole Allergy Unknown RASH Verified 10/12/19 20:21 trimethoprim Allergy Unknown RASH Verified 10/12/19 20:21 codeine AdvReac Mild nausea Verified 10/12/19 20:21 Home Medications Home Medications Medication Instructions Recorded Confirmed Type allopurinol 300 mg PO DAILY #0 tab 05/03/12 10/12/19 History atorvastatin [Lipitor] 80 mg PO DAILY #0 tab 08/04/15 10/12/19 History Lantus U-100 Insulin 26 unit SUBCUT PM #0 04/07/17 10/12/19 History insulin aspart U-100 10 unit SUBCUT QAM #0 04/07/17 10/12/19 History insulin aspart U-100 18 unit SUBCUT BID #0 04/07/17 10/12/19 History lorazepam 2 mg PO HS #0 04/07/17 10/12/19 History amlodipine [Norvasc] 5 mg PO DAILY #0 tab 11/27/17 10/12/19 History Lantus U-100 Insulin 43 unit SUBCUT QAM #0 pen 04/14/18 10/12/19 History nystatin-triamcinolone 1 applic TOPICAL BID #0 04/14/18 10/12/19 History nitroglycerin 0.4 mg sublingual 0.4 mg SUBLINGUAL Q5M PRN #0 tab 04/16/19 10/12/19 History tablet potassium chloride 20 mEq 20 meq PO BID tab 04/16/19 10/12/19 History tablet,extended release spironolactone 25 mg tablet 12.5 mg PO DAILY tab 04/16/19 10/12/19 History aspirin [Aspir-81] 81 mg PO DAILY 10/12/19 10/12/19 History metoprolol succinate [Toprol XL] 25 mg PO DAILY 10/12/19 10/12/19 History torsemide 20 mg PO BID 10/12/19 10/12/19 History Patient History Medical History Bradycardia (Acute) Cataracts, bilateral (Acute) Coronary artery disease (Acute) Coronary artery disease (Acute) Diabetes Edema (Chronic) Gout (Acute) Hyperparathyroidism (Chronic) Hypertension (Chronic) Kidney disease, chronic, stage IV (severe, EGFR 15-29 ml/min) (Chronic) Neuropathy (Acute) Weakness (Acute) Surgical History History of 3 sections (Acute) History of total right knee replacement (Acute) S/P angioplasty with stent (Acute) Family History Mother Heart disease Diabetes Brother Diabetes Social History Preferred Language: Welsh Communication Ability: Effective Stave Cutting Supervisor Required: No Beliefs That Will Affect Care: None marital status: / Current Living Situation: Alone Other Information That Helps Us Care for You: No Feels Safe at Home: Yes Safety Concerns: Feels Safe At This Time Smoking Status: Never smoker Hx Alcohol Use: No Hx Substance Use: No Review of Systems Review of Systems: All systems reviewed & are unremarkable except as noted in HPI & below Physical Exam Constitutional: WD/WN, vitals as above + obese; no acute distress Eyes: PERRL, conjunctivae normal, anicteric sclerae ENMT: external ear and nose normal, oropharynx normal Neck: trachea midline, no thyromegaly Respiratory: Auscultation: + diminished lung sounds Cardiovascular: Rate/Rhythm: regular rate and regular rhythm Heart Sounds: normal S1 and normal S2; no gallop and no murmur Palpation: normal PMI Vessels: normal carotid upstroke and radial pulses present; no JVD and no carotid bruit Extremities: no edema Chest (Breasts): Chest: + pacemaker Gastrointestinal (Abdomen): normal bowel sounds, soft, nontender, no hepatosplenomegaly Musculoskeletal: no cyanosis or clubbing, extremities motor strength 5/5 Skin: no rashes, warm and dry Neurologic: PERRL, EOMI, accommodation nl, no face palsy, no dysarthria Psychiatric: A+Ox3, euthymic affect Results & Data (MN) Vital Signs (Past 12 Hours) Vital Signs Temp Pulse Pulse Resp BP BP Pulse Ox 10/13/19 11:54 36.7 C 60 16 144/67 H 97 10/13/19 07:40 36.3 C L 60 16 138/72 99 10/13/19 07:23 63 10/13/19 04:21 36.6 C 60 18 109/54 L 96 Laboratory Results Laboratory Results - last 24 hr 10/12/19 10/12/19 10/12/19 18:39 18:39 19:10 WBC 6.62 RBC 4.31 Hgb 13.9 Hct 41.6 MCV 96.5 MCH 32.3 MCHC 33.4 RDW Std Deviation 50.4 H RDW Coeff of Afvian 14.3 Plt Count 135 MPV 11.6 H Immature Gran % (Auto) 0.2 Neut % (Auto) 67.4 Lymph % (Auto) 21.9 Person % (Auto) 8.9 Eos % (Auto) 1.4 Baso % (Auto) 0.2 Immature Gran # (Auto) 0.01 Neut # (Auto) 4.47 Lymph # (Auto) 1.45 Person # (Auto) 0.59 Eos # (Auto) 0.09 Baso # (Auto) 0.01 PT 10.3 INR 1.0 APTT 23.3 PTT Ratio 0.9 Sodium 137 Potassium 3.0 L Chloride 99 Carbon Dioxide 30 Anion Gap 8.0 BUN 70 H Creatinine 2.24 H Est Cr Clr Drug Dosing 23.0 Est GFR ( Amer) 23.7 Est GFR (Non-Af Amer) 20.5 BUN/Creatinine Ratio 31.3 H Glucose 205 H POC Glucose Estimat Average Glucose Hemoglobin A1c Calcium 10.3 H Magnesium Total Bilirubin 0.3 AST 30 ALT 34 Alkaline Phosphatase 60 Troponin I 0.047 H* Total Protein 7.4 Albumin 3.3 L Globulin 4.1 H Albumin/Globulin Ratio 0.8 L Triglycerides Cholesterol LDL Cholesterol, Calc VLDL Cholesterol, Calc HDL Cholesterol Cholesterol/HDL Ratio Lipase 136 Specimen Hemolysis 10/12/19 10/13/19 10/13/19 23:25 00:25 07:12 WBC RBC Hgb Hct MCV MCH MCHC RDW Std Deviation RDW Coeff of Favian Plt Count MPV Immature Gran % (Auto) Neut % (Auto) Lymph % (Auto) Person % (Auto) Eos % (Auto) Baso % (Auto) Immature Gran # (Auto) Neut # (Auto) Lymph # (Auto) Person # (Auto) Eos # (Auto) Baso # (Auto) PT INR APTT PTT Ratio Sodium Potassium Chloride Carbon Dioxide Anion Gap BUN Creatinine Est Cr Clr Drug Dosing Est GFR ( Amer) Est GFR (Non-Af Amer) BUN/Creatinine Ratio Glucose POC Glucose 267 H Estimat Average Glucose 146 Hemoglobin A1c 6.7 H Calcium Magnesium Total Bilirubin AST ALT Alkaline Phosphatase Troponin I 0.042 Total Protein Albumin Globulin Albumin/Globulin Ratio Triglycerides Cholesterol LDL Cholesterol, Calc VLDL Cholesterol, Calc HDL Cholesterol Cholesterol/HDL Ratio Lipase Specimen Hemolysis 10/13/19 10/13/19 10/13/19 07:12 07:12 07:12 WBC 5.24 RBC 4.02 L Hgb 13.0 Hct 38.8 MCV 96.5 MCH 32.3 MCHC 33.5 RDW Std Deviation 50.2 H RDW Coeff of Favian 14.3 Plt Count 128 L MPV 11.3 H Immature Gran % (Auto) Neut % (Auto) Lymph % (Auto) Person % (Auto) Eos % (Auto) Baso % (Auto) Immature Gran # (Auto) Neut # (Auto) Lymph # (Auto) Person # (Auto) Eos # (Auto) Baso # (Auto) PT INR APTT PTT Ratio Sodium 138 Potassium 3.0 L Chloride 102 Carbon Dioxide 29 Anion Gap 7.0 BUN 66 H Creatinine 1.73 H D Est Cr Clr Drug Dosing 29.7 Est GFR ( Amer) 32.4 Est GFR (Non-Af Amer) 28.0 BUN/Creatinine Ratio 38.4 H Glucose 123 H POC Glucose Estimat Average Glucose Hemoglobin A1c Calcium 9.6 Magnesium 2.2 Total Bilirubin AST ALT Alkaline Phosphatase Troponin I 0.044 Total Protein Albumin Globulin Albumin/Globulin Ratio Triglycerides 171 H Cholesterol 111 LDL Cholesterol, Calc 36 VLDL Cholesterol, Calc 34 HDL Cholesterol 41 Cholesterol/HDL Ratio 3 Lipase Specimen Hemolysis 10/13/19 10/13/19 07:26 11:35 WBC RBC Hgb Hct MCV MCH MCHC RDW Std Deviation RDW Coeff of Favian Plt Count MPV Immature Gran % (Auto) Neut % (Auto) Lymph % (Auto) Person % (Auto) Eos % (Auto) Baso % (Auto) Immature Gran # (Auto) Neut # (Auto) Lymph # (Auto) Person # (Auto) Eos # (Auto) Baso # (Auto) PT INR APTT PTT Ratio Sodium Potassium Chloride Carbon Dioxide Anion Gap BUN Creatinine Est Cr Clr Drug Dosing Est GFR ( Amer) Est GFR (Non-Af Amer) BUN/Creatinine Ratio Glucose POC Glucose 123 H 74 Estimat Average Glucose Hemoglobin A1c Calcium Magnesium Total Bilirubin AST ALT Alkaline Phosphatase Troponin I Total Protein Albumin Globulin Albumin/Globulin Ratio Triglycerides Cholesterol LDL Cholesterol, Calc VLDL Cholesterol, Calc HDL Cholesterol Cholesterol/HDL Ratio Lipase Specimen Hemolysis ECG Additional Comments: EKG x2, atrial pacing without acute ST segment changes or Q waves
[2019-10-13] MEDS ORDERED: POTASSIUM CHLORIDE 20 MEQ TABCR PO STA (13:24)
--- NOTE | 2019-10-13 13:24 | Hospitalist Progress Note ---
Date of Service October 13, 2019 Assessment & Plan (1) Substernal chest pain: Presented with episodic chest pain Concern for worsening/unstable coronary plaque that is already known. Mild troponin elevation present and that remains flat. Considered aortic dissection but low prob, and has equal bilateral blood pressures and intermittent pain. Will get CTA if symptomatic chest pain with radiation to the back Appreciate cardiology input and recommendation Possible further cardiac studies and/or cath on Tuesday (2) Elevated troponin: as above. (3) ASPEN (acute kidney injury): History of CKD with creatinine around 1.5-2 Current dehydration likely secondary to use of diuretics Creatinine improved to 1.73 from 2.24 on admission Diuretics are on hold . (4) Hypokalemia: 2/2 diuretic use. Replaced in ER Remains low as of this morning and will replace (5) Morbid obesity: (6) Diabetes mellitus type 2: Well controlled A1C as of last fall. Repeat pending in am. Cont basal bolus insulin while hospitalized. (7) DVT prophylaxis: Heparin CODE STATUS Full Dispo-uncertain pending Cardiology recommendations. Admission and Anticipated Discharge Date Admission Date: October 12, 2019 Subjective 10/13/2019 The patient was seen and examined in medical telemetry unit She has history of CAD and status post CABG admitted with the episodic chest pain Denies any more chest pain since admission Denies any other symptoms Review of Systems Review of Systems: All systems reviewed and are unremarkable except as noted below Cardiovascular: no chest pain, no chest pain at rest and no palpitations Physical Exam Physical Exam: Lying in bed comfortably Constitutional: well developed, well nourished and + obese; no acute distress and not ill appearing Eyes: PERRL, conjunctivae normal, anicteric sclerae ENMT: external ear and nose normal, oropharynx normal Neck: trachea midline, no thyromegaly Respiratory: normal respiratory effort; no respiratory distress Auscultation: lungs clear to auscultation bilaterally Cardiovascular: Rate/Rhythm: regular rate and regular rhythm Heart Sounds: no murmur Gastrointestinal (Abdomen): Inspection/Auscultation: abdomen normal to inspection and normal bowel sounds Percussion/Palpation: abdomen soft; abdomen nontender Musculoskeletal: No acute arthritis involving any joints Lymphatic: no cervical or axillary lymphadenopathy Results & Data ([facility]) Vital Signs (Past 12 Hours) Vital Signs Temp Pulse Pulse Resp BP BP Pulse Ox 10/13/19 11:54 36.7 C 60 16 144/67 H 97 10/13/19 07:40 36.3 C L 60 16 138/72 99 10/13/19 07:23 63 10/13/19 04:21 36.6 C 60 18 109/54 L 96 Laboratory Results Short CBC 10/12/19 10/13/19 Range/Units 18:39 07:12 WBC 6.62 5.24 (4.8-10.8) K/uL Hgb 13.9 13.0 (12.0-16.0) g/dL Hct 41.6 38.8 (37-47) % Plt Count 135 128 L (130-400) K/uL BMP 10/12/19 10/13/19 18:39 07:12 Sodium 137 138 Potassium 3.0 L 3.0 L Chloride 99 102 Carbon Dioxide 30 29 BUN 70 H 66 H Creatinine 2.24 H 1.73 H D Glucose 205 H 123 H Calcium 10.3 H 9.6 Cardiac Enzymes 10/12/19 10/13/19 10/13/19 Range/Units 18:39 00:25 07:12 Troponin I 0.047 H* 0.042 0.044 (0-0.045) ng/ml Liver Function 10/12/19 Range/Units 18:39 Total Bilirubin 0.3 (0.2-1) mg/dl AST 30 (15-37) U/L ALT 34 (12-78) U/L Alkaline Phosphatase 60 (45-117) U/L Albumin 3.3 L (3.4-5.0) gm/dl Medications Administered Current Inpatient Medications Acetaminophen (Tylenol) 650 mg PO Q4H PRN PRN Reason: Pain or Fever Stop: 11/11/19 22:43 Last Admin: 10/13/19 03:27 Dose: 650 mg Documented by: Allopurinol (Zyloprim) 300 mg PO DAILY [facility] Stop: 11/12/19 08:59 Last Admin: 10/13/19 08:04 Dose: 300 mg Documented by: Amlodipine Besylate (Norvasc) 5 mg PO DAILY [facility] Stop: 11/12/19 08:59 Last Admin: 10/13/19 08:02 Dose: 5 mg Documented by: Aspirin (Ecotrin Ectab) 81 mg PO DAILY [facility] Stop: 11/12/19 08:59 Last Admin: 10/13/19 08:05 Dose: 81 mg Documented by: Atorvastatin Calcium (Lipitor) 80 mg PO DAILY [facility] Stop: 11/12/19 08:59 Last Admin: 10/13/19 08:03 Dose: 80 mg Documented by: Dextrose (Dextrose 50%) 25 - 50 ml IV UD PRN; Protocol PRN Reason: Hypoglycemia Protocol Stop: 11/11/19 22:52 Glucagon (Glucagen) 1 mg SQ UD PRN; Protocol PRN Reason: Hypoglycemia Protocol Stop: 11/11/19 22:52 Glucose (Dex4 Glucose) 4 - 8 tabs PO UD PRN; Protocol PRN Reason: Hypoglycemia Protocol Stop: 11/11/19 22:52 Glucose (Glucose 40%) 15 - 30 gm PO UD PRN; Protocol PRN Reason: Hypoglycemia Protocol Stop: 11/11/19 22:52 Potassium Chloride (K Rigoberto / Wtr) 10 meq in 100 mls @ 100 mls/hr IV Q1H [facility] Stop: 10/13/19 13:29 Last Admin: 10/13/19 11:53 Dose: 100 mls/hr Documented by: Insulin Aspart (Novolog Flexpen) 0 units SC ACHS [facility] Stop: 11/12/19 07:29 Last Admin: 10/13/19 12:47 Dose: Not Given Documented by: Insulin Glargine (Lantus Solostar Pen) 15 units SC BID [facility] Stop: 11/11/19 22:59 Last Admin: 10/13/19 08:09 Dose: 15 units Documented by: Lorazepam (Ativan) 2 mg PO HS [facility] Stop: 11/12/19 20:59 Metoprolol Succinate (Toprol Xl) 25 mg PO DAILY [facility] Stop: 11/12/19 08:59 Last Admin: 10/13/19 08:04 Dose: 25 mg Documented by: Miscellaneous (Carbohydrates For Hypoglycemia) 15 - 30 gm PO UD PRN PRN Reason: Hypoglycemia Protocol Stop: 11/11/19 22:52 Morphine Sulfate (Morphine Sulfate) 2 mg IV Q30M PRN PRN Reason: Chest Pain Stop: 10/26/19 22:43 Nitroglycerin (Nitrostat) 0.4 mg SL Q5M PRN PRN Reason: Chest Pain Stop: 11/11/19 18:24 Last Admin: 10/12/19 18:57 Dose: 0.4 mg Documented by: Nitroglycerin (Nitrostat) 0.4 mg SL UD PRN PRN Reason: Chest Pain Stop: 11/11/19 22:43 Ondansetron HCl (Zofran) 4 mg IV Q6H PRN PRN Reason: Nausea Stop: 11/11/19 22:43 Polyethylene Glycol (Miralax Powder Packet) 17 gm PO DAILY PRN PRN Reason: Constipation Stop: 11/11/19 22:43 Potassium Chloride (Klor-Con M20) 20 meq PO BID [facility] Stop: 11/12/19 08:59 Last Admin: 10/13/19 08:04 Dose: 20 meq Documented by: Spironolactone (Aldactone) 12.5 mg PO DAILY [facility] Stop: 11/12/19 08:59 Last Admin: 10/13/19 08:04 Dose: 12.5 mg Documented by:
[2019-10-13] MEDS ORDERED: PERFLUTREN LIPID MICROSPHERE (DEFINITY) IV ONE (14:51)
--- NOTE | 2019-10-13 18:06 | Electrocardiogram Report ---
Test Reason : Blood Pressure : / mmHG Vent. Rate : 080 BPM Atrial Rate : 080 BPM P-R Int : 216 ms QRS Dur : 104 ms QT Int : 390 ms P-R-T Axes : 004 017 098 degrees QTc Int : 449 ms Atrial-paced rhythm with prolonged AV conduction Abnormal ECG When compared with ECG of 13-FEB-2019 11:11, Premature supraventricular complexes are no longer Present Confirmed by Surinder Bemreo ([id number]) on 10/13/2019 6:06:08 PM Referred By: REFERRED SELF Confirmed By:Michael Bermeo
--- NOTE | 2019-10-13 18:12 | Electrocardiogram Report ---
Test Reason : Blood Pressure : / mmHG Vent. Rate : 061 BPM Atrial Rate : 061 BPM P-R Int : 232 ms QRS Dur : 104 ms QT Int : 462 ms P-R-T Axes : 000 010 088 degrees QTc Int : 465 ms Atrial-paced rhythm with prolonged AV conduction Abnormal ECG When compared with ECG of 12-OCT-2019 17:55, (unconfirmed) No significant change was found Confirmed by Surinder Bermeo ([id number]) on 10/13/2019 6:12:26 PM Referred By: REFERRED SELF Confirmed By:Michael Bermeo
[2019-10-13] MEDS: LORazepam 1 MG TAB PO SCH (20:54)
[2019-10-14 06:48] LABS: Basophils # (auto) 0.01 K/uL (0-0.2); Basophils % (auto) 0.2 %; Eosinophils # (auto) 0.21 K/uL (0-0.5); Eosinophils % (auto) 3.8 %; Hematocrit (blood only) 39.3 % (37-47); Hemoglobin 13.1 g/dL (12.0-16.0); Immature Granulocytes # (auto) 0.01 K/uL (0.00-0.02); Immature Granulocytes % (auto) 0.2 %; Lymphocytes # (auto) 1.24 K/uL (1.2-3.4); Lymphocytes % (auto) 22.6 %; Mean Corpuscular Hemoglobin 32.3 pg (25-34); Mean Corpuscular Hgb Conc 33.3 g/dL (32-36); Mean Platelet Volume 11.1 fL (7.4-10.4); Monocytes # (auto) 0.59 K/uL (0.11-0.59); Monocytes % (auto) 10.7 %; Neutrophils # (auto) 3.43 K/uL (1.4-6.5); Neutrophils % (auto) 62.5 %; Platelet Count 117 K/uL (130-400); RDW Coefficient of Variation 14.2 % (11.5-14.5); RDW Standard Deviation 50.1 fL (36.4-46.3); Red Blood Count 4.05 M/uL (4.2-5.4); White Blood Count 5.49 K/uL (4.8-10.8)
[2019-10-14 07:24] LABS: Calcium 9.7 mg/dl (8.5-10.1); Creatinine Clr Calc Pharmacy 37.6 ml/min; Est GFR (Non-African American) 37.1; Magnesium 2.5 mg/dl (1.8-2.4); Potassium 3.9 mmol/L (3.5-5.1)
[2019-10-14] MEDS: ATORVASTATIN 40 MG TAB PO SCH (07:41)
[2019-10-14] MEDS: AMLODIPINE BESYLATE 5 MG TAB PO SCH (07:41)
[2019-10-14] MEDS: ASPIRIN 81 MG ECTAB PO SCH (07:42)
[2019-10-14] MEDS: POTASSIUM CHLORIDE 20 MEQ TABCR PO SCH ×2 (07:42→21:17)
[2019-10-14] MEDS: allopurinoL 300 MG TAB PO SCH (07:42)
[2019-10-14] MEDS: SPIRONOLACTONE 25 MG TAB PO SCH (07:43)
[2019-10-14] MEDS: METOPROLOL SUCC 25MG EXT REL TAB PO SCH (07:43)
[2019-10-14] MEDS: INSULIN ASPART 100 UNITS/ML 3 ML PEN SC SCH ×4 (09:26→21:17)
[2019-10-14] MEDS: INSULIN GLARGINE SOLOSTAR 100 UNITS/ML 3 ML PEN SC SCH ×2 (09:26→21:17)
--- NOTE | 2019-10-14 11:34 | Cardiology Progress Note ---
Date of Service October 14, 2019 Assessment & Plan (1) Substernal chest pain: Patient is a 78-year-old female with known coronary artery disease with prior remote coronary intervention 2001 and compensated angina pectoris. She carries a history of longstanding diastolic and hypertensive heart failure, chronic renal insufficiency. Clinical history is notable for recent increasing lower extremity edema treated with increasing diuretic dose. Now presenting with symptoms of acute chest pressure pain x3-4 episodes over the past weeks time. Symptoms concerning for angina. EKGs without acute change. Troponin minimally elevated but flat Acute renal insufficiency superimposed on chronic renal sufficiency noted Plan agree with current therapies, topical nitrates continue usual medications. Anticipating diagnostic cardiac catheterization in a.m. Will hydrate gently tonight (2) Elevated troponin: (3) Edema: (4) Diastolic CHF, chronic: (5) CKD (chronic kidney disease) stage 3, GFR 30-59 ml/min: (6) ASPEN (acute kidney injury): Subjective Patient seen, examined, chart and medications reviewed. No arrhythmias on telemetry. Patient denies any chest pains or discomfort overnight. No orthopnea PND peripheral edema. No dizziness or lightheadedness. Physical Exam Constitutional: WD/WN, vitals as above + obese; no acute distress Eyes: PERRL, conjunctivae normal, anicteric sclerae ENMT: external ear and nose normal, oropharynx normal Neck: trachea midline, no thyromegaly Respiratory: Auscultation: + diminished lung sounds Cardiovascular: Rate/Rhythm: regular rate and regular rhythm Heart Sounds: normal S1 and normal S2; no gallop and no murmur Palpation: normal PMI Vessels: normal carotid upstroke and radial pulses present; no JVD and no carotid bruit Extremities: + edema (Trace) Chest (Breasts): Chest: + pacemaker Gastrointestinal (Abdomen): normal bowel sounds, soft, nontender, no hepatosplenomegaly Musculoskeletal: no cyanosis or clubbing, extremities motor strength 5/5 Skin: no rashes, warm and dry Neurologic: PERRL, EOMI, accommodation nl, no face palsy, no dysarthria Psychiatric: A+Ox3, euthymic affect Results & Data Vital Signs (Past 12 Hours) Vital Signs Temp Pulse Resp BP Pulse Ox 10/14/19 07:36 36.5 C 60 18 147/71 H 96 10/14/19 04:18 36.6 C 63 17 128/55 L 96 10/14/19 00:07 36.9 C 60 18 121/69 99 Laboratory Results Laboratory Results - last 24 hr 10/13/19 10/13/19 10/13/19 11:35 16:42 20:34 WBC RBC Hgb Hct MCV MCH MCHC RDW Std Deviation RDW Coeff of Favian Plt Count MPV Immature Gran % (Auto) Neut % (Auto) Lymph % (Auto) Bent % (Auto) Eos % (Auto) Baso % (Auto) Immature Gran # (Auto) Neut # (Auto) Lymph # (Auto) Bent # (Auto) Eos # (Auto) Baso # (Auto) Sodium Potassium Chloride Carbon Dioxide Anion Gap BUN Creatinine Est Cr Clr Drug Dosing Est GFR ( Amer) Est GFR (Non-Af Amer) BUN/Creatinine Ratio Glucose POC Glucose 74 149 H 197 H Calcium Magnesium 10/14/19 10/14/19 10/14/19 06:36 06:36 07:31 WBC 5.49 RBC 4.05 L Hgb 13.1 Hct 39.3 MCV 97.0 MCH 32.3 MCHC 33.3 RDW Std Deviation 50.1 H RDW Coeff of Favian 14.2 Plt Count 117 L MPV 11.1 H Immature Gran % (Auto) 0.2 Neut % (Auto) 62.5 Lymph % (Auto) 22.6 Bent % (Auto) 10.7 Eos % (Auto) 3.8 Baso % (Auto) 0.2 Immature Gran # (Auto) 0.01 Neut # (Auto) 3.43 Lymph # (Auto) 1.24 Bent # (Auto) 0.59 Eos # (Auto) 0.21 Baso # (Auto) 0.01 Sodium 138 Potassium 3.9 D Chloride 105 Carbon Dioxide 30 Anion Gap 3.0 BUN 58 H Creatinine 1.37 H D Est Cr Clr Drug Dosing 37.6 Est GFR ( Amer) 43.0 Est GFR (Non-Af Amer) 37.1 BUN/Creatinine Ratio 42.0 H Glucose 140 H POC Glucose 134 H Calcium 9.7 Magnesium 2.5 H 10/14/19 10:52 WBC RBC Hgb Hct MCV MCH MCHC RDW Std Deviation RDW Coeff of Favian Plt Count MPV Immature Gran % (Auto) Neut % (Auto) Lymph % (Auto) Bent % (Auto) Eos % (Auto) Baso % (Auto) Immature Gran # (Auto) Neut # (Auto) Lymph # (Auto) Bent # (Auto) Eos # (Auto) Baso # (Auto) Sodium Potassium Chloride Carbon Dioxide Anion Gap BUN Creatinine Est Cr Clr Drug Dosing Est GFR ( Amer) Est GFR (Non-Af Amer) BUN/Creatinine Ratio Glucose POC Glucose 217 H Calcium Magnesium Diagnostic Findings Echocardiogram: Mild to moderate left hypertrophy with sigmoid septum normal LV systolic function without wall motion abnormality heavy mitral valve annular calcification ECG Additional Comments: EKG 10/14/2019: Atrial paced rhythm with no ST segment changes or Q waves
--- NOTE | 2019-10-14 12:53 | Hospitalist Progress Note ---
Date of Service October 14, 2019 Assessment & Plan (1) Substernal chest pain: Presented with episodic chest pain Concern for worsening/unstable coronary plaque that is already known. Mild troponin elevation present and that remains flat. Considered aortic dissection but low prob, and has equal bilateral blood pressures and intermittent pain. Will get CTA if symptomatic chest pain with radiation to the back Appreciate cardiology input and recommendation Possible further cardiac studies and/or cath on Tuesday Remains stable without any cardiac symptoms Will have cardiac cath tomorrow (2) Elevated troponin: as above. (3) ASPEN (acute kidney injury): History of CKD with creatinine around 1.5-2 Current dehydration likely secondary to use of diuretics Creatinine improved to 1.73 from 2.24 on admission Diuretics are on hold Creatinine is improving and it is 1.37 today We will get more intravenous fluid today and check BMP tomorrow morning before the procedure . (4) Hypokalemia: 2/2 diuretic use. Replaced in ER Remains low as of this morning and will replace (5) Morbid obesity: (6) Diabetes mellitus type 2: Well controlled A1C as of last fall. Repeat pending in am. Cont basal bolus insulin while hospitalized. (7) DVT prophylaxis: Heparin CODE STATUS Full Dispo-uncertain pending Cardiology recommendations. Admission and Anticipated Discharge Date Admission Date: October 12, 2019 Subjective 10/13/2019 The patient was seen and examined in medical telemetry unit She has history of CAD and status post CABG admitted with the episodic chest pain Denies any more chest pain since admission Denies any other symptoms 10/14/2019 The patient was seen and examined in medical telemetry unit She has been feeling lot better and denies any chest pain and/or palpitation or shortness of breath She will have possible cardiac cath tomorrow Review of Systems Review of Systems: All systems reviewed and are unremarkable except as noted below Cardiovascular: no chest pain, no chest pain at rest and no dyspnea Gastrointestinal: no abdominal pain, no bloating, no nausea and no vomiting Physical Exam Physical Exam: Lying in bed comfortably Constitutional: well developed, well nourished and + obese; no acute distress and not ill appearing Eyes: PERRL, conjunctivae normal, anicteric sclerae ENMT: external ear and nose normal, oropharynx normal Neck: trachea midline, no thyromegaly Respiratory: normal respiratory effort; no respiratory distress Auscultation: lungs clear to auscultation bilaterally Cardiovascular: Rate/Rhythm: regular rate and regular rhythm Heart Sounds: no murmur Gastrointestinal (Abdomen): Inspection/Auscultation: abdomen normal to inspection and normal bowel sounds Percussion/Palpation: abdomen soft; abdomen nontender Musculoskeletal: No acute arthritis involving any joints Neurologic: Alert, awake and oriented x3 Lymphatic: no cervical or axillary lymphadenopathy Results & Data ([facility]) Vital Signs (Past 12 Hours) Vital Signs Temp Pulse Resp BP BP Pulse Ox 10/14/19 11:58 36.7 C 62 16 144/78 H 98 10/14/19 11:31 99 10/14/19 07:36 36.5 C 60 18 147/71 H 96 10/14/19 04:18 36.6 C 63 17 128/55 L 96 Laboratory Results Short CBC 10/14/19 Range/Units 06:36 WBC 5.49 (4.8-10.8) K/uL Hgb 13.1 (12.0-16.0) g/dL Hct 39.3 (37-47) % Plt Count 117 L (130-400) K/uL BMP 10/14/19 06:36 Sodium 138 Potassium 3.9 D Chloride 105 Carbon Dioxide 30 BUN 58 H Creatinine 1.37 H D Glucose 140 H Calcium 9.7 Medications Administered Current Inpatient Medications Acetaminophen (Tylenol) 650 mg PO Q4H PRN PRN Reason: Pain or Fever Stop: 11/11/19 22:43 Last Admin: 10/13/19 03:27 Dose: 650 mg Documented by: Allopurinol (Zyloprim) 300 mg PO DAILY [facility] Stop: 11/12/19 08:59 Last Admin: 10/14/19 07:42 Dose: 300 mg Documented by: Amlodipine Besylate (Norvasc) 5 mg PO DAILY [facility] Stop: 11/12/19 08:59 Last Admin: 10/14/19 07:41 Dose: 5 mg Documented by: Aspirin (Ecotrin Ectab) 81 mg PO DAILY [facility] Stop: 11/12/19 08:59 Last Admin: 10/14/19 07:42 Dose: 81 mg Documented by: Atorvastatin Calcium (Lipitor) 80 mg PO DAILY [facility] Stop: 11/12/19 08:59 Last Admin: 10/14/19 07:41 Dose: 80 mg Documented by: Dextrose (Dextrose 50%) 25 - 50 ml IV UD PRN; Protocol PRN Reason: Hypoglycemia Protocol Stop: 11/11/19 22:52 Glucagon (Glucagen) 1 mg SQ UD PRN; Protocol PRN Reason: Hypoglycemia Protocol Stop: 11/11/19 22:52 Glucose (Dex4 Glucose) 4 - 8 tabs PO UD PRN; Protocol PRN Reason: Hypoglycemia Protocol Stop: 11/11/19 22:52 Glucose (Glucose 40%) 15 - 30 gm PO UD PRN; Protocol PRN Reason: Hypoglycemia Protocol Stop: 11/11/19 22:52 Sodium Chloride (Nss 1000ml) 1,000 mls @ 49 mls/hr IV .[id number] [facility] Stop: 11/14/19 00:00 Insulin Aspart (Novolog Flexpen) 0 units SC ACHS [facility]PL[facility] Stop: 11/12/19 07:29 Last Admin: 10/14/19 09:26 Dose: 9 units Documented by: Insulin Glargine (Lantus Solostar Pen) 15 units SC BID [facility] Stop: 11/11/19 22:59 Last Admin: 10/14/19 09:26 Dose: 15 units Documented by: Lorazepam (Ativan) 2 mg PO HS [facility] Stop: 11/12/19 20:59 Last Admin: 10/13/19 20:54 Dose: 2 mg Documented by: Metoprolol Succinate (Toprol Xl) 25 mg PO DAILY [facility] Stop: 11/12/19 08:59 Last Admin: 10/14/19 07:43 Dose: 25 mg Documented by: Miscellaneous (Carbohydrates For Hypoglycemia) 15 - 30 gm PO UD PRN PRN Reason: Hypoglycemia Protocol Stop: 11/11/19 22:52 Morphine Sulfate (Morphine Sulfate) 2 mg IV Q30M PRN PRN Reason: Chest Pain Stop: 10/26/19 22:43 Nitroglycerin (Nitrostat) 0.4 mg SL Q5M PRN PRN Reason: Chest Pain Stop: 11/11/19 18:24 Last Admin: 10/12/19 18:57 Dose: 0.4 mg Documented by: Nitroglycerin (Nitrostat) 0.4 mg SL UD PRN PRN Reason: Chest Pain Stop: 11/11/19 22:43 Ondansetron HCl (Zofran) 4 mg IV Q6H PRN PRN Reason: Nausea Stop: 11/11/19 22:43 Polyethylene Glycol (Miralax Powder Packet) 17 gm PO DAILY PRN PRN Reason: Constipation Stop: 11/11/19 22:43 Potassium Chloride (Klor-Con M20) 20 meq PO BID REPLACED BY [facility] Stop: 11/12/19 08:59 Last Admin: 10/14/19 07:42 Dose: 20 meq Documented by: Spironolactone (Aldactone) 12.5 mg PO DAILY REPLACED BY [facility] Stop: 11/12/19 08:59 Last Admin: 10/14/19 07:43 Dose: 12.5 mg Documented by:
--- NOTE | 2019-10-14 16:51 | Electrocardiogram Report ---
Test Reason : Blood Pressure : / mmHG Vent. Rate : 062 BPM Atrial Rate : 062 BPM P-R Int : 228 ms QRS Dur : 092 ms QT Int : 434 ms P-R-T Axes : 000 -04 072 degrees QTc Int : 440 ms Atrial-paced rhythm with prolonged AV conduction Nonspecific ST and T wave abnormality Abnormal ECG When compared with ECG of 13-OCT-2019 07:32, No significant change was found Confirmed by Surinder Bermeo ([id number]) on 10/14/2019 4:51:15 PM Referred By: REFERRED SELF Confirmed By:Michael Bermeo
[2019-10-14] MEDS: LORazepam 1 MG TAB PO SCH (21:16)
[2019-10-14] MEDS: NITROGLYCERIN SL 0.4 MG/TAB TAB SL PRN ×2 (21:36→21:51)
[2019-10-15 07:37] LABS: BUN Creatinine Ratio 35.3 (10-20); Calcium 9.9 mg/dl (8.5-10.1); Creatinine Clr Calc Pharmacy 40.8 ml/min; Est GFR (African American) 47.1; Est GFR (Non-African American) 40.7
[2019-10-15] MEDS: AMLODIPINE BESYLATE 5 MG TAB PO SCH (07:45)
[2019-10-15] MEDS: POTASSIUM CHLORIDE 20 MEQ TABCR PO SCH ×2 (07:46→20:53)
[2019-10-15] MEDS: allopurinoL 300 MG TAB PO SCH (07:47)
[2019-10-15] MEDS: ATORVASTATIN 40 MG TAB PO SCH (07:47)
[2019-10-15] MEDS: ASPIRIN 81 MG ECTAB PO SCH (07:48)
[2019-10-15] MEDS: SPIRONOLACTONE 25 MG TAB PO SCH (07:49)
[2019-10-15] MEDS: METOPROLOL SUCC 25MG EXT REL TAB PO SCH (07:49)
[2019-10-15] MEDS: INSULIN GLARGINE SOLOSTAR 100 UNITS/ML 3 ML PEN SC SCH ×2 (09:08→20:53)
[2019-10-15] MEDS: INSULIN ASPART 100 UNITS/ML 3 ML PEN SC SCH ×4 (09:09→20:44)
--- NOTE | 2019-10-15 10:22 | Electrocardiogram Report ---
Test Reason : Blood Pressure : / mmHG Vent. Rate : 062 BPM Atrial Rate : 062 BPM P-R Int : 176 ms QRS Dur : 096 ms QT Int : 430 ms P-R-T Axes : -15 003 073 degrees QTc Int : 436 ms Normal sinus rhythm with what appears to be occasional atrial pacing with pseudofusion Nonspecific ST abnormality Abnormal ECG When compared with ECG of 14-OCT-2019 07:20, Sinus rhythm has replaced Electronic atrial pacemaker Confirmed by Surinder Bermeo ([id number]) on 10/15/2019 10:22:07 AM Referred By: REFERRED SELF Confirmed By:Michael Bermeo
[2019-10-15] MEDS ORDERED: NiCARDipine HCL INJ 2.5 MG/ML 10 ML AMP ONE (10:59)
[2019-10-15] MEDS ORDERED: HEPARIN (PORCINE) 1000 UNIT/ML 10 ML (CATH LAB USE ONLY) ONE (10:59)
[2019-10-15] MEDS ORDERED: fentaNYL citrate 100 MCG/2 ML VIAL ONE (10:59)
[2019-10-15] MEDS ORDERED: NITROGLYCERIN/D5W 100MCG/ML 20ML SYR ONE (11:00)
[2019-10-15] MEDS ORDERED: MIDAZOLAM HCL 1 MG/ML 2ML VIAL ONE (11:00)
--- NOTE | 2019-10-15 12:35 | Hospitalist Progress Note ---
Date of Service October 15, 2019 Assessment & Plan (1) Substernal chest pain: Presented with episodic chest pain Concern for worsening/unstable coronary plaque that is already known. Mild troponin elevation present and that remains flat. Considered aortic dissection but low prob, and has equal bilateral blood pressures and intermittent pain. Will get CTA if symptomatic chest pain with radiation to the back Appreciate cardiology input and recommendation Possible further cardiac studies and/or cath on Tuesday Has had an episode of chest pain last night without any significant associated symptoms Remains stable as of this morning and will go for cardiac cath as planned (2) Elevated troponin: as above. (3) ASPEN (acute kidney injury): History of CKD with creatinine around 1.5-2 Current dehydration likely secondary to use of diuretics Creatinine improved to 1.73 from 2.24 on admission Diuretics are on hold Creatinine is improving and it is 1.37 today We will get more intravenous fluid today and check BMP tomorrow morning before the procedure Likely go to telemetry unit following cardiac catheterization . (4) Hypokalemia: 2/2 diuretic use. Replaced in ER Remains low as of this morning and will replace (5) Morbid obesity: (6) Diabetes mellitus type 2: Well controlled A1C as of last fall. Repeat pending in am. Cont basal bolus insulin while hospitalized. (7) DVT prophylaxis: Heparin CODE STATUS Full Dispo-uncertain pending Cardiology recommendations. Admission and Anticipated Discharge Date Admission Date: October 12, 2019 Subjective 10/13/2019 The patient was seen and examined in medical telemetry unit She has history of CAD and status post CABG admitted with the episodic chest pain Denies any more chest pain since admission Denies any other symptoms 10/14/2019 The patient was seen and examined in medical telemetry unit She has been feeling lot better and denies any chest pain and/or palpitation or shortness of breath She will have possible cardiac cath tomorrow 10/15/2019 The patient was seen and examined in telemetry unit She has had some chest pain last night but none since this morning She will go for cardiac cath this morning Review of Systems Review of Systems: All systems reviewed and are unremarkable except as noted below Physical Exam Physical Exam: Sitting on a chair without any acute distress Constitutional: well developed, well nourished and + obese; no acute distress and not ill appearing Eyes: PERRL, conjunctivae normal, anicteric sclerae ENMT: external ear and nose normal, oropharynx normal Neck: trachea midline, no thyromegaly Respiratory: normal respiratory effort; no respiratory distress Auscultation: lungs clear to auscultation bilaterally Cardiovascular: Rate/Rhythm: regular rate and regular rhythm Heart Sounds: no murmur Gastrointestinal (Abdomen): Inspection/Auscultation: abdomen normal to inspection and normal bowel sounds Percussion/Palpation: abdomen soft; abdomen nontender Musculoskeletal: No acute arthritis involving any joints Neurologic: patellar DTR's 2+ bilat, sensation intact Lymphatic: no cervical or axillary lymphadenopathy Results & Data ([facility]) Vital Signs (Past 12 Hours) Vital Signs Temp Pulse Resp BP Pulse Ox 10/15/19 07:16 36.8 C 62 18 162/77 H 96 10/15/19 02:51 37.0 C 63 17 149/80 H 98 Laboratory Results [facility] 10/15/19 06:37 Sodium 140 Potassium Chloride 109 H Carbon Dioxide 26 BUN 45 H Creatinine 1.27 H Glucose 126 H Calcium 9.9 Cardiac Enzymes 10/14/19 Range/Units 22:29 Troponin I 0.038 (0-0.045) ng/ml Medications Administered Current Inpatient Medications Acetaminophen (Tylenol) 650 mg PO Q4H PRN PRN Reason: Pain or Fever Stop: 11/11/19 22:43 Last Admin: 10/13/19 03:27 Dose: 650 mg Documented by: Allopurinol (Zyloprim) 300 mg PO DAILY [facility] Stop: 11/12/19 08:59 Last Admin: 10/15/19 07:47 Dose: 300 mg Documented by: Amlodipine Besylate (Norvasc) 5 mg PO DAILY [facility] Stop: 11/12/19 08:59 Last Admin: 10/15/19 07:45 Dose: 5 mg Documented by: Aspirin (Ecotrin Ectab) 81 mg PO DAILY [facility] Stop: 11/12/19 08:59 Last Admin: 10/15/19 07:48 Dose: 81 mg Documented by: Atorvastatin Calcium (Lipitor) 80 mg PO DAILY [facility] Stop: 11/12/19 08:59 Last Admin: 10/15/19 07:47 Dose: 80 mg Documented by: Dextrose (Dextrose 50%) 25 - 50 ml IV UD PRN; Protocol PRN Reason: Hypoglycemia Protocol Stop: 11/11/19 22:52 Glucagon (Glucagen) 1 mg SQ UD PRN; Protocol PRN Reason: Hypoglycemia Protocol Stop: 11/11/19 22:52 Glucose (Dex4 Glucose) 4 - 8 tabs PO UD PRN; Protocol PRN Reason: Hypoglycemia Protocol Stop: 11/11/19 22:52 Glucose (Glucose 40%) 15 - 30 gm PO UD PRN; Protocol PRN Reason: Hypoglycemia Protocol Stop: 11/11/19 22:52 Sodium Chloride (Nss 1000ml) 1,000 mls @ 49 mls/hr IV .[id number] [facility] Stop: 11/14/19 00:00 Last Admin: 10/14/19 23:35 Dose: 49 mls/hr Documented by: Insulin Aspart (Novolog Flexpen) 0 units SC ACHS [facility] Stop: 11/12/19 07:29 Last Admin: 10/15/19 09:09 Dose: Not Given Documented by: Insulin Glargine (Lantus Solostar Pen) 15 units SC BID [facility] Stop: 11/11/19 22:59 Last Admin: 10/15/19 09:08 Dose: 8 units Documented by: Lorazepam (Ativan) 2 mg PO HS [facility] Stop: 11/12/19 20:59 Last Admin: 10/14/19 21:16 Dose: 2 mg Documented by: Metoprolol Succinate (Toprol Xl) 25 mg PO DAILY [facility] Stop: 11/12/19 08:59 Last Admin: 10/15/19 07:49 Dose: 25 mg Documented by: Miscellaneous (Carbohydrates For Hypoglycemia) 15 - 30 gm PO UD PRN PRN Reason: Hypoglycemia Protocol Stop: 11/11/19 22:52 Morphine Sulfate (Morphine Sulfate) 2 mg IV Q30M PRN PRN Reason: Chest Pain Stop: 10/26/19 22:43 Last Admin: 10/14/19 21:38 Dose: 2 mg Documented by: Nitroglycerin (Nitrostat) 0.4 mg SL Q5M PRN PRN Reason: Chest Pain Stop: 11/11/19 18:24 Last Admin: 10/14/19 21:51 Dose: 0.4 mg Documented by: Nitroglycerin (Nitrostat) 0.4 mg SL UD PRN PRN Reason: Chest Pain Stop: 11/11/19 22:43 Ondansetron HCl (Zofran) 4 mg IV Q6H PRN PRN Reason: Nausea Stop: 11/11/19 22:43 Polyethylene Glycol (Miralax Powder Packet) 17 gm PO DAILY PRN PRN Reason: Constipation Stop: 11/11/19 22:43 Potassium Chloride (Klor-Con M20) 20 meq PO BID [facility] Stop: 11/12/19 08:59 Last Admin: 10/15/19 07:46 Dose: 20 meq Documented by: Spironolactone (Aldactone) 12.5 mg PO DAILY [facility] Stop: 11/12/19 08:59 Last Admin: 10/15/19 07:49 Dose: 12.5 mg Documented by:
--- NOTE | 2019-10-15 12:46 | Pre Anesthesia Assessment ---
Date of Service October 15, 2019 Pre Sedation Assessment Vital Signs Temp Pulse Pulse Resp BP BP Pulse Ox 10/15/19 07:16 36.8 C 62 18 162/77 H 96 10/15/19 02:51 37.0 C 63 17 149/80 H 98 10/14/19 23:13 37.1 C 64 17 151/77 H 97 10/14/19 21:35 60 158/68 H 95 10/14/19 20:49 36.7 C 61 18 151/76 H 97 10/14/19 15:33 36.7 C 60 18 158/68 H 97 Cardiovascular + regular rate and + regular rhythm Respiratory + respiratory effort normal Pre-Sedation Airway Assessment Smoking Status: Never smoker Hx Sleep Apnea: No Hx Difficult Intubation: No Short, Thick Neck: No Thyromental Distance: > or= 3.5 Finger Breadths Oral Cavity: + WNL Mallampati Class: III ASA: ASA3 NPO Status Date of Last Intake of Fluids: 10/14/19 Date of Last Intake of Solid Food: 10/14/19 Procedure Planning Contraindications for Sedation: none Current Medications Reviewed: No Notes The planned sedation has been discussed with the patient. Informed Consent was obtained. I have identified the patient, determined the appropriateness of sedation and have assessed the patient immediately prior to the procedure. All medicine(s) and interventions are by my order.
[2019-10-15] MEDS ORDERED: ATROPINE SULFATE 0.1 MG/ML 10ML SYR IV ONE (12:51)
--- NOTE | 2019-10-15 12:54 | Cardiac Catheterization ---
Cardiac Cath Procedure Brief Procedure Date October 15, 2019 Pre-Procedure Diagnosis Pre-Procedure Diagnosis: Angina (At rest) AUC Score AUC Score: 8 Post-Procedure Diagnosis Post-Procedure Diagnosis: Moderate CAD (Multivessel with patent right coronary stent) Procedure(s) Performed Procedure(s) Performed: Coronary Angiography and Left Heart Cath Cereal Popper Tc Mike MD Marketing And Development Coordinator(s) [place] Estimated Blood Loss Estimated Blood Loss: <15 Medication(s) Medication(s): Fentanyl (12.5 mcg IV), Lidocaine 1% (Local infiltration access sites) and Versed (1 mg IV) Preliminary Findings Right dominant coronary anatomy with heavy calcification coronary anatomy Patent stents within the proximal mid right coronary artery Left main: Long and mildly calcified without obstructive disease Left anterior descending: Type II in distribution. It gives rise to a large septal branch in its proximal portion, a second large septal branch opposite its first and largest diagonal branch at the end of its proximal third and a small second diagonal branch in its midportion. Within the left anterior descending there is heavy calcification in its proximal third. The proximal third has a long area of stenosis of 50% with an irregular eccentric portion and a small area shelflike ectasia. The origin of the first diagonal branch is narrowed by 40% with this being a large bifurcating vessel. Left circumflex: The vessel is moderately large but nondominant and tortuous in its coursing. It gives rise to a moderate large first obtuse marginal small second marginal and continues along the AV groove is a small posterior lateral branch. There are moderate luminal irregularities in the left circumflex distribution with a 40% narrowing at the origin of the first obtuse marginal. Right coronary artery moderately large caliber vessel and dominant distribution. Gives rise to a conus branch and 2 small right ventricular branches in its proximal third and at the AV groove along posterior descending artery reaching well to the apex and along the AV groove a small first posterior ventricular branch and a moderately large caliber bifurcating second posterior ventricular branch. Within the right coronary artery there is a long area of extensive stenting in its proximal third which is widely patent. The right coronary artery has a 30% narrowing at the distal end of the stent. The posterior descending artery has a 50 to 60% narrowing at its origin and a 60% narrowing in its midportion Left ventricular angiography: Not performed LV pressure 153 Recommendations Recommendations: Medical Therapy and/or Counseling Specimens Specimens: None Fluids (cc crystalloids) Fluids (cc crystalloids): 100 Anesthesia Start time: 1138 stop time: 1239 Procedural Complication(s) Right radial access attempted wire unable to be passed beyond access site and access was changed to right femoral without difficulty Disposition PCU
[2019-10-15] MEDS ORDERED: ACETAMINOPHEN 325 MG TAB PO PRN (12:56)
[2019-10-15] MEDS ORDERED: SODIUM CHLORIDE 0.9% 1000ML 1,000 ML IV SCH ×2 (13:00)
--- NOTE | 2019-10-15 13:14 | Cardiac Catheterization ---
Cardiac Cath Procedure Full Procedure Date October 15, 2019 Pre-Procedure Diagnosis Pre-Procedure Diagnosis: Angina (At rest) AUC Score AUC Score: 8 Post-Procedure Diagnosis Post-Procedure Diagnosis: Moderate CAD (Multivessel with patent right coronary stent) Procedure(s) Performed Procedure(s) Performed: Coronary Angiography and Left Heart Cath General Forecaster Tc Mike MD Chip Mixer(s) [place] Estimated Blood Loss Estimated Blood Loss: <15 Medication(s) Medication(s): Fentanyl (12.5 mcg IV), Lidocaine 1% (Local infiltration access sites) and Versed (1 mg IV) Summary of Findings Right dominant coronary anatomy with heavy calcification coronary anatomy Patent stents within the proximal mid right coronary artery Left main: Long and mildly calcified without obstructive disease Left anterior descending: Type II in distribution. It gives rise to a large septal branch in its proximal portion, a second large septal branch opposite its first and largest diagonal branch at the end of its proximal third and a small second diagonal branch in its midportion. Within the left anterior descending there is heavy calcification in its proximal third. The proximal third has a long area of stenosis of 50% with an irregular eccentric portion and a small area shelflike ectasia. The origin of the first diagonal branch is narrowed by 40% with this being a large bifurcating vessel. Left circumflex: The vessel is moderately large but nondominant and tortuous in its coursing. It gives rise to a moderate large first obtuse marginal small second marginal and continues along the AV groove is a small posterior lateral branch. There are moderate luminal irregularities in the left circumflex distribution with a 40% narrowing at the origin of the first obtuse marginal. Right coronary artery moderately large caliber vessel and dominant distribution. Gives rise to a conus branch and 2 small right ventricular branches in its proximal third and at the AV groove along posterior descending artery reaching well to the apex and along the AV groove a small first posterior ventricular branch and a moderately large caliber bifurcating second posterior ventricular branch. Within the right coronary artery there is a long area of extensive stenting in its proximal third which is widely patent. The right coronary artery has a 30% narrowing at the distal end of the stent. The posterior descending artery has a 50 to 60% narrowing at its origin and a 60% narrowing in its midportion Left ventricular angiography: Not performed LV pressure 153/1/17 Impression: Moderate diffuse coronary atherosclerosis with patent right coronary artery stents Recommendations: Optimize medical therapies Hemodynamics Rest Ao:: 162/54/95 Final Ao: 157/48/89 LV: 153/1/17 Recommendations Recommendations: Medical Therapy and/or Counseling Specimens Specimens: None Radiation Exposure (mGy) 1173 Contrast (mls) 80 Fluids (cc crystalloids) Fluids (cc crystalloids): 100 Anesthesia Start time: 1138 stop time: 1239 Procedural Complication(s) Right radial access attempted wire unable to be passed beyond access site and access was changed to right femoral without difficulty Disposition PCU I attest to the content of the Intraoperative Record and any orders documented therein. Any exceptions are noted below. ACC Data: Ore Roaster Cardiac Status Clinical evaluation leading to the procedure CAD Presenation: Stable angina Anginal Classification: CCS IV Cardiogenic Shock within 24 Hours: No Cardiac Arrest within 24 Hours: No Imaging Studies Past 6 Months: Yes Stress Studies Past 6 Months: No Standard Exercise Test: No Stress Echocardiogram: No Stress Testing w/SPECT MPI: No Cardiac CTA: No Coronary Anatomy Dominant: Right Left Main (% Stenosis): Normal LAD (% Stenosis): Mid (Long 50% with ectasia) D1 (% Stenosis): Ostial (40) D2 (% Stenosis): Normal Circumflex (% Stenosis): Proximal (30) OM1 (% Stenosis): Ostial (40) RCA (% Stenosis): Proximal (Patent stents with 30% narrowing at distal end) R PDA (% Stenosis): Ostial (50-6) and Mid (60) Left Ventricular Angiography EF (%): N/A Diagnostic Physicians Name: Tc Mike MD Status: Urgent Closure Device Percutaneous Entry Location: Femoral Closure Device: None-Manual Hold Recommendations: Medical Therapy and/or Counseling
--- NOTE | 2019-10-15 17:46 | Cardiology Progress Note ---
Date of Service October 15, 2019 Assessment & Plan (1) Substernal chest pain: Patient is a 78-year-old female with known coronary artery disease with prior remote coronary intervention 2001 and compensated angina pectoris. She carries a history of longstanding diastolic and hypertensive heart failure, chronic renal insufficiency. Clinical history is notable for recent increasing lower extremity edema treated with increasing diuretic dose. Now presenting with symptoms of acute chest pressure pain x3-4 episodes over the past weeks time. Symptoms concerning for angina. EKGs without acute change. Troponin minimally elevated but flat Acute renal insufficiency superimposed on chronic renal sufficiency noted Diagnostic cardiac catheterization demonstrated moderate diffuse coronary atherosclerosis with patent right coronary stent. There is a long area of complex disease in the proximal/mid left anterior descending of 50 to 60% at greatest though with a shelflike ectasia. Plan: We will treat with dual antiplatelet therapy for 30 days initiate clopidogrel Add oral nitrates for blood pressure and preload reduction with isosorbide dinitrate 20 mg twice daily Maintain telemetry overnight Repeat renal function morning given dye load administered Anticipate reevaluation after discharge possible stress testing depending on clinical course (2) Elevated troponin: (3) Edema: (4) Diastolic CHF, chronic: (5) CKD (chronic kidney disease) stage 3, GFR 30-59 ml/min: (6) ASPEN (acute kidney injury): Subjective Patient seen and reexamined after diagnostic cardiac catheterization earlier today. Currently feeling well no chest pains or discomfort no shortness of breath. Diagnostic cardiac catheterization demonstrated moderate diffuse coronary atherosclerosis with patent stents in the right coronary artery Review of Systems Review of Systems: All systems reviewed & are unremarkable except as noted in HPI & below Physical Exam Constitutional: WD/WN, vitals as above + obese; no acute distress Eyes: PERRL, conjunctivae normal, anicteric sclerae ENMT: Mallampati Class: III Neck: trachea midline, no thyromegaly Respiratory: normal respiratory effort Auscultation: + diminished lung sounds Cardiovascular: Rate/Rhythm: regular rate and regular rhythm Heart Sounds: normal S1 and normal S2; no gallop and no murmur Palpation: normal PMI Vessels: normal carotid upstroke and radial pulses present (Bandage in place); no JVD and no carotid bruit Extremities: + edema (Trace) Femoral artery access site with bandage no surrounding hematoma or bruit Chest (Breasts): Chest: + pacemaker Gastrointestinal (Abdomen): normal bowel sounds, soft, nontender, no hepatosplenomegaly Musculoskeletal: no cyanosis or clubbing, extremities motor strength 5/5 Skin: no rashes, warm and dry Neurologic: PERRL, EOMI, accommodation nl, no face palsy, no dysarthria Psychiatric: A+Ox3, euthymic affect Results & Data Vital Signs (Past 12 Hours) Vital Signs Temp Pulse Pulse Resp BP BP Pulse Ox 10/15/19 17:24 62 16 138/73 10/15/19 16:29 61 16 141/69 H 10/15/19 15:38 36.5 C 61 20 139/75 100 10/15/19 15:01 63 16 156/48 H 96 10/15/19 14:33 61 18 137/63 96 10/15/19 14:16 60 16 137/63 10/15/19 14:00 63 16 159/69 H 97 10/15/19 13:46 62 16 147/66 H 100 10/15/19 13:30 62 16 151/65 H 97 10/15/19 13:15 62 18 162/80 H 98 10/15/19 13:10 62 18 152/80 H 98 10/15/19 13:05 62 18 165/63 H 98 10/15/19 13:00 62 18 152/112 H 98 10/15/19 12:55 62 18 152/112 H 98 10/15/19 07:16 36.8 C 62 18 162/77 H 96 Laboratory Results Laboratory Results - last 24 hr 10/14/19 10/14/19 10/15/19 21:03 22:29 00:16 Sodium Potassium Chloride Carbon Dioxide Anion Gap BUN Creatinine Est Cr Clr Drug Dosing Est GFR ( Amer) Est GFR (Non-Af Amer) BUN/Creatinine Ratio Glucose POC Glucose 146 H 124 H Calcium Magnesium Troponin I 0.038 10/15/19 10/15/19 10/15/19 06:07 06:37 07:37 Sodium 140 Potassium Chloride 109 H Carbon Dioxide 26 Anion Gap 5.0 BUN 45 H Creatinine 1.27 H Est Cr Clr Drug Dosing 40.8 Est GFR ( Amer) 47.1 Est GFR (Non-Af Amer) 40.7 BUN/Creatinine Ratio 35.3 H Glucose 126 H POC Glucose 128 H 135 H Calcium 9.9 Magnesium Troponin I 10/15/19 10/15/19 13:52 16:11 Sodium Potassium Chloride Carbon Dioxide Anion Gap BUN Creatinine Est Cr Clr Drug Dosing Est GFR ( Amer) Est GFR (Non-Af Amer) BUN/Creatinine Ratio Glucose POC Glucose 152 H 118 H Calcium Magnesium Troponin I
[2019-10-15] MEDS ORDERED: CLOPIDOGREL BISULFATE 75 MG TAB PO ONE (17:49)
[2019-10-15] MEDS: LORazepam 1 MG TAB PO SCH (20:52)
[2019-10-15] MEDS: HEPARIN SOD 5,000 UNIT/0.5 ML VIAL SQ SCH (20:52)
[2019-10-16] MEDS: ISOSORBIDE DINITRATE 20 MG TAB PO SCH ×2 (07:39→12:22)
[2019-10-16] MEDS: INSULIN GLARGINE SOLOSTAR 100 UNITS/ML 3 ML PEN SC SCH (07:40)
[2019-10-16] MEDS: HEPARIN SOD 5,000 UNIT/0.5 ML VIAL SQ SCH (07:40)
[2019-10-16] MEDS: SPIRONOLACTONE 25 MG TAB PO SCH (07:41)
[2019-10-16] MEDS: METOPROLOL SUCC 25MG EXT REL TAB PO SCH (07:42)
[2019-10-16] MEDS: allopurinoL 300 MG TAB PO SCH (07:42)
[2019-10-16] MEDS: POTASSIUM CHLORIDE 20 MEQ TABCR PO SCH (07:42)
[2019-10-16] MEDS: ATORVASTATIN 40 MG TAB PO SCH (07:42)
[2019-10-16] MEDS: ASPIRIN 81 MG ECTAB PO SCH (07:42)
[2019-10-16] MEDS: AMLODIPINE BESYLATE 5 MG TAB PO SCH (07:43)
[2019-10-16] MEDS: INSULIN ASPART 100 UNITS/ML 3 ML PEN SC SCH ×2 (07:50→12:22)
[2019-10-16] MEDS ORDERED: CLOPIDOGREL BISULFATE 75 MG TAB PO SCH (09:00)
--- NOTE | 2019-10-16 10:19 | Cardiology Progress Note ---
Date of Service October 16, 2019 Assessment & Plan (1) Substernal chest pain: Patient is a 78-year-old female with known coronary artery disease with prior remote coronary intervention 2001 and compensated angina pectoris. She carries a history of longstanding diastolic and hypertensive heart failure, chronic renal insufficiency. Clinical history is notable for recent increasing lower extremity edema treated with increasing diuretic dose. Now presenting with symptoms of acute chest pressure pain x3-4 episodes over the past weeks time. Symptoms concerning for angina. EKGs without acute change. Troponin minimally elevated but flat Acute renal insufficiency superimposed on chronic renal sufficiency noted Diagnostic cardiac catheterization demonstrated moderate diffuse coronary atherosclerosis with patent right coronary stent. There is a long area of complex disease in the proximal/mid left anterior descending of 50 to 60% at greatest though with a shelflike ectasia. Plan: Patient stable this morning. Okay for discharge on current medical regimen. Follow-up with cardiology already scheduled (2) Elevated troponin: (3) Edema: (4) Diastolic CHF, chronic: (5) CKD (chronic kidney disease) stage 3, GFR 30-59 ml/min: (6) ASPEN (acute kidney injury): Subjective Patient seen and examined, chart, medications telemetry reviewed. No complaints at right radial access and femoral access sites. No difficulties overnight. No chest pains or shortness of breath. Review of Systems Review of Systems: All systems reviewed & are unremarkable except as noted in HPI & below Physical Exam Constitutional: WD/WN, vitals as above + obese; no acute distress Eyes: PERRL, conjunctivae normal, anicteric sclerae ENMT: Mallampati Class: III Neck: trachea midline, no thyromegaly Respiratory: normal respiratory effort Auscultation: + diminished lung sounds Cardiovascular: Rate/Rhythm: regular rate and regular rhythm Heart Sounds: normal S1 and normal S2; no gallop and no murmur Palpation: normal PMI Vessels: normal carotid upstroke and radial pulses present (Bandage in place); no JVD and no carotid bruit Extremities: + edema (Trace) Chest (Breasts): Chest: + pacemaker Gastrointestinal (Abdomen): normal bowel sounds, soft, nontender, no hepatosplenomegaly Musculoskeletal: no cyanosis or clubbing, extremities motor strength 5/5 Skin: no rashes, warm and dry Neurologic: PERRL, EOMI, accommodation nl, no face palsy, no dysarthria Psychiatric: A+Ox3, euthymic affect Results & Data Vital Signs (Past 12 Hours) Vital Signs Temp Pulse Pulse Resp BP Pulse Ox 10/16/19 08:59 60 10/16/19 07:33 36.4 C L 65 18 146/79 H 96 10/16/19 03:33 36.5 C 60 18 153/74 H 99 10/16/19 00:56 63 10/15/19 23:59 36.8 C 64 18 138/68 97 Laboratory Results Laboratory Results - last 24 hr 10/15/19 10/15/19 10/15/19 13:52 16:11 20:03 POC Glucose 152 H 118 H 158 H 10/16/19 07:33 POC Glucose 111 H
--- NOTE | 2019-10-16 12:57 | Hospitalist Progress Note ---
Date of Service October 16, 2019 Assessment & Plan (1) Substernal chest pain: Presented with episodic chest pain Concern for worsening/unstable coronary plaque that is already known. Mild troponin elevation present and that remains flat. Considered aortic dissection but low prob, and has equal bilateral blood pressures and intermittent pain. Will get CTA if symptomatic chest pain with radiation to the back Appreciate cardiology input and recommendation Possible further cardiac studies and/or cath on Tuesday Has had an episode of chest pain last night without any significant associated symptoms Status post cardiac cath which showed moderate diffuse coronary atherosclerosis with patent right coronary stent. There is a long area of complex disease in the proximal/mid left anterior descending of 50 to 60% at greatest do not shelflike ectasia. Remains asymptomatic and will be discharged this afternoon (2) Elevated troponin: as above. (3) ASPEN (acute kidney injury): History of CKD with creatinine around 1.5-2 Current dehydration likely secondary to use of diuretics Creatinine improved to 1.73 from 2.24 on admission Diuretics are on hold Creatinine is improving and it is 1.37 today We will get more intravenous fluid today and check BMP tomorrow morning before the procedure Likely go to telemetry unit following cardiac catheterization . (4) Hypokalemia: 2/2 diuretic use. Replaced in ER Remains low as of this morning and will replace (5) Morbid obesity: (6) Diabetes mellitus type 2: Well controlled A1C as of last fall. Repeat pending in am. Cont basal bolus insulin while hospitalized. Remains stable (7) DVT prophylaxis: Heparin CODE STATUS Full Dispo-uncertain pending Cardiology recommendations. Will be discharged home this afternoon Admission and Anticipated Discharge Date Admission Date: October 12, 2019 Subjective 10/13/2019 The patient was seen and examined in medical telemetry unit She has history of CAD and status post CABG admitted with the episodic chest pain Denies any more chest pain since admission Denies any other symptoms 10/14/2019 The patient was seen and examined in medical telemetry unit She has been feeling lot better and denies any chest pain and/or palpitation or shortness of breath She will have possible cardiac cath tomorrow 10/15/2019 The patient was seen and examined in telemetry unit She has had some chest pain last night but none since this morning She will go for cardiac cath this morning 10/16/2019 Patient was seen and examined in telemetry unit She is a status post cardiac cath and has been doing good following that Denies any symptoms as of today Ambulating well without any difficulty Review of Systems Review of Systems: All systems reviewed and are unremarkable except as noted below Cardiovascular: no chest pain, no chest pain at rest, no dyspnea and no palpitations Physical Exam Physical Exam: Sitting on a chair without any acute distress Constitutional: well developed, well nourished and + obese; no acute distress and not ill appearing Eyes: PERRL, conjunctivae normal, anicteric sclerae ENMT: external ear and nose normal, oropharynx normal Neck: trachea midline, no thyromegaly Respiratory: normal respiratory effort; no respiratory distress Auscultation: lungs clear to auscultation bilaterally Cardiovascular: Rate/Rhythm: regular rate and regular rhythm Heart Sounds: no murmur Extremities: + edema (Trace edema bilateral) Gastrointestinal (Abdomen): Inspection/Auscultation: abdomen normal to inspection and normal bowel sounds Percussion/Palpation: abdomen soft; abdomen nontender Musculoskeletal: No acute arthritis involving any joint Neurologic: patellar DTR's 2+ bilat, sensation intact Lymphatic: no cervical or axillary lymphadenopathy Results & Data ([facility]) Vital Signs (Past 12 Hours) Vital Signs Temp Pulse Pulse Pulse Resp BP BP 10/16/19 12:24 36.7 C 63 68 17 146/72 H 162/77 H 10/16/19 11:07 36.7 C 68 17 146/72 H 10/16/19 08:59 60 10/16/19 07:33 36.4 C L 65 18 146/79 H 10/16/19 03:33 36.5 C 60 18 153/74 H 10/16/19 00:56 63 Pulse Ox 10/16/19 12:24 98 10/16/19 11:07 98 10/16/19 08:59 10/16/19 07:33 96 10/16/19 03:33 99 10/16/19 00:56 Medications Administered Current Inpatient Medications Acetaminophen (Tylenol) 650 mg PO Q4H PRN PRN Reason: Pain 1-3 or Fever Stop: 11/11/19 22:43 Last Admin: 10/13/19 03:27 Dose: 650 mg Documented by: Allopurinol (Zyloprim) 300 mg PO DAILY ERICA Stop: 11/12/19 08:59 Last Admin: 10/16/19 07:42 Dose: 300 mg Documented by: Amlodipine Besylate (Norvasc) 5 mg PO DAILY ERICA Stop: 11/12/19 08:59 Last Admin: 10/16/19 07:43 Dose: 5 mg Documented by: Aspirin (Ecotrin Ectab) 81 mg PO DAILY ERICA Stop: 11/12/19 08:59 Last Admin: 10/16/19 07:42 Dose: 81 mg Documented by: Atorvastatin Calcium (Lipitor) 80 mg PO DAILY ERICA Stop: 11/12/19 08:59 Last Admin: 10/16/19 07:42 Dose: 80 mg Documented by: Clopidogrel Bisulfate (Plavix) 75 mg PO QAM ERICA Stop: 11/15/19 08:59 Last Admin: 10/16/19 07:40 Dose: 75 mg Documented by: Dextrose (Dextrose 50%) 25 - 50 ml IV UD PRN; Protocol PRN Reason: Hypoglycemia Protocol Stop: 11/11/19 22:52 Glucagon (Glucagen) 1 mg SQ UD PRN; Protocol PRN Reason: Hypoglycemia Protocol Stop: 11/11/19 22:52 Glucose (Dex4 Glucose) 4 - 8 tabs PO UD PRN; Protocol PRN Reason: Hypoglycemia Protocol Stop: 11/11/19 22:52 Glucose (Glucose 40%) 15 - 30 gm PO UD PRN; Protocol PRN Reason: Hypoglycemia Protocol Stop: 11/11/19 22:52 Heparin Sodium (Porcine) (Heparin Sodium (Porcine)) 5,000 units SQ Q12 ERICA Stop: 11/14/19 20:59 Last Admin: 10/16/19 07:40 Dose: 5,000 units Documented by: Insulin Aspart (Novolog Flexpen) 0 units SC ACHS [facility] Stop: 11/12/19 07:29 Last Admin: 10/16/19 12:22 Dose: 12 units Documented by: Insulin Glargine (Lantus Solostar Pen) 15 units SC BID ERICA Stop: 11/11/19 22:59 Last Admin: 10/16/19 07:40 Dose: 15 units Documented by: Isosorbide Dinitrate (Isordil) 20 mg PO BID@0700,1200 ERICA Stop: 11/15/19 06:59 Last Admin: 10/16/19 12:22 Dose: 20 mg Documented by: Lorazepam (Ativan) 2 mg PO HS [facility] Stop: 03/23/20 20:59 Last Admin: 10/15/19 20:52 Dose: 2 mg Documented by: Metoprolol Succinate (Toprol Xl) 25 mg PO DAILY ERICA Stop: 11/12/19 08:59 Last Admin: 10/16/19 07:42 Dose: 25 mg Documented by: Miscellaneous (Carbohydrates For Hypoglycemia) 15 - 30 gm PO UD PRN PRN Reason: Hypoglycemia Protocol Stop: 11/11/19 22:52 Morphine Sulfate (Morphine Sulfate) 2 mg IV Q30M PRN PRN Reason: Chest Pain Stop: 10/26/19 22:43 Last Admin: 10/14/19 21:38 Dose: 2 mg Documented by: Nitroglycerin (Nitrostat) 0.4 mg SL Q5M PRN PRN Reason: Chest Pain Stop: 11/11/19 18:24 Last Admin: 10/14/19 21:51 Dose: 0.4 mg Documented by: Nitroglycerin (Nitrostat) 0.4 mg SL UD PRN PRN Reason: Chest Pain Stop: 11/11/19 22:43 Ondansetron HCl (Zofran) 4 mg IV Q6H PRN PRN Reason: Nausea Stop: 11/11/19 22:43 Polyethylene Glycol (Miralax Powder Packet) 17 gm PO DAILY PRN PRN Reason: Constipation Stop: 11/11/19 22:43 Last Admin: 10/15/19 20:52 Dose: 17 gm Documented by: Potassium Chloride (Klor-Con M20) 20 meq PO BID ERICA Stop: 11/12/19 08:59 Last Admin: 10/16/19 07:42 Dose: 20 meq Documented by: Spironolactone (Aldactone) 12.5 mg PO DAILY ERICA Stop: 11/12/19 08:59 Last Admin: 10/16/19 07:41 Dose: 12.5 mg Documented by:
--- NOTE | 2019-10-17 10:32 | Discharge Summary ---
Date of Service October 17, 2019 Admission HPI Per Admitting Provider 78-year-old obese female with controlled diabetes with complications in addition to known CAD status post bare-metal stent to RCA in 2001 presents with an increase in frequency of chest pain in the last 2 weeks. She reports feeling an onset of a stabbing pain in the center of her chest that would radiates to her back which has occurred at rest, presumably unprovoked. Her first episode was approximately 2 weeks ago and lasted about 10 to 15 minutes. She had no associated symptoms of lightheadedness, palpitations, nausea, sweating, shortness of breath. The episode again occurred at least 2 more times with the most recent time occurring this afternoon prompting her presentation to the ER. All episodes are described the same out associated with other symptoms. She had recently made a phone call to the heart failure clinic who manages her reporting bloating, and received guidance to double her dose of torsemide to 40 mg p.o. twice daily over the next 3 days. Lab work however reveals an elevation in her creatinine from baseline. Work-up also reveals an elevated troponin of 0.047 a potassium of 3.0 and an elevated glucose level of 205. Her chest x-ray is unremarkable and her EKG reveals a paced rhythm that appears unchanged from prior. Review of systems is otherwise negative. Admission Exam Per Admitting Provider Physical Exam: CONSTITUTIONAL: obese, bilateral upper arm blood pressures are as follows (L-129/68, R-127/67), other vitals as above, generally well- appearing EYES: normal conjunctivae, no scleral icterus ENT: MMM RESPIRATORY: clear to auscultation bilaterally, no crackles, rales or wheezes, normal respiratory effort CARDIOVASCULAR: regular rate and rhythm, S1 and 2 heard without murmurs, gal lops or rubs, no JVD, no peripheral edema, no carotid bruits GASTROINTESTINAL: soft, nontender, nondistended MUSCULOSKELETAL: strength 5/5 throughout, head is normocephalic and atraumatic SKIN: warm and dry NEUROLOGIC: CN 2-12 grossly intact, normal cognition, normal speech, no gross focal deficits. PSYCHIATRIC: alert cooperative and oriented to person, place and time Principal Diagnosis Substernal chest pain without ACS, status post cardiac cath with moderate diffuse coronary artery disease, CKD, chronic diastolic CHF Discharge Exam Constitutional well developed, well nourished and + obese; no acute distress and not ill appearing Eyes PERRL, conjunctivae normal, anicteric sclerae ENMT external ear and nose normal, oropharynx normal Neck trachea midline, no thyromegaly Respiratory normal respiratory effort; no respiratory distress Auscultation: lungs clear to auscultation bilaterally Cardiovascular Rate/Rhythm: regular rate and regular rhythm Heart Sounds: no murmur Extremities: + edema (Trace edema bilateral) Gastrointestinal (Abdomen) Inspection/Auscultation: abdomen normal to inspection and normal bowel sounds Percussion/Palpation: abdomen soft; abdomen nontender Neurologic patellar DTR's 2+ bilat, sensation intact Lymphatic no cervical or axillary lymphadenopathy Discharge Data Allergies Allergy/AdvReac Type Severity Reaction Status Date / Time Bactrim Allergy Unknown RASH Verified 04/14/18 12:03 sulfamethoxazole Allergy Unknown RASH Verified 10/12/19 20:21 trimethoprim Allergy Unknown RASH Verified 10/12/19 20:21 codeine AdvReac Mild nausea Verified 10/12/19 20:21 Consultations 10/12/19 19:33 ED Decision to Admit Stat 10/12/19 22:44 Consult Cardiology Routine 10/12/19 22:52 Consult Case Management - Discharge Planning Routine Procedures Performed Operation Date: 10/15/19 11:00 Actual Procedures s Cineradiography w/Routine Exam - Tc Mike MD p Cath, Left with Cors and Vent - Tc Mike MD Ordered Studies 10/15/19 11:12 CL Cath Imgs for PACS use only Routine Hospital Course (1) Substernal chest pain: Presented with episodic chest pain Concern for worsening/unstable coronary plaque that is already known. Mild troponin elevation present and that remains flat. Considered aortic dissection but low prob, and has equal bilateral blood pressures and intermittent pain. Will get CTA if symptomatic chest pain with radiation to the back Appreciate cardiology input and recommendation Possible further cardiac studies and/or cath on Tuesday Has had an episode of chest pain last night without any significant associated symptoms Status post cardiac cath which showed moderate diffuse coronary atherosclerosis with patent right coronary stent. There is a long area of complex disease in the proximal/mid left anterior descending of 50 to 60% at greatest do not shelflike ectasia. Remains asymptomatic and will be discharged this afternoon (2) Elevated troponin: as above. (3) ASPEN (acute kidney injury): History of CKD with creatinine around 1.5-2 Current dehydration likely secondary to use of diuretics Creatinine improved to 1.73 from 2.24 on admission Diuretics are on hold Creatinine is improving and it is 1.37 today We will get more intravenous fluid today and check BMP tomorrow morning before the procedure Likely go to telemetry unit following cardiac catheterization . (4) Hypokalemia: 2/2 diuretic use. Replaced in ER Remains low as of this morning and will replace (5) Morbid obesity: (6) Diabetes mellitus type 2: Well controlled A1C as of last fall. Repeat pending in am. Cont basal bolus insulin while hospitalized. Remains stable (7) DVT prophylaxis: Heparin CODE STATUS Full Dispo-uncertain pending Cardiology recommendations. Will be discharged home this afternoon Total Time Total Time Spent Total Time Spent (In Minutes): 35 minutes Total Time Includes: Examination of the Patient, Discharge Planning, Medication Reconciliation and Communication With Other Providers Discharge Plan Discharge Items Patient Disposition: Home - Self-Care Reason For Visit: CHEST PAIN Discharge Diagnosis: Substernal chest pain without ACS, status post cardiac cath with moderate diffuse coronary artery disease, CKD, chronic diastolic CHF Condition on Discharge: Good Activity: Resume your previous activity Activity Comment: Take it easy for the next 1 to 2 weeks Non-emergency contact: Primary Care Provider Call non-emergency contact if: you have any medication questions Follow-up/Referrals: RADHA LEAVITT [Other] - 10/25/19 10:55 am (Please keep appointment with it operations manager as a scheduled) Diet: Carb Consistent or DM2 and Heart Healthy Fluids: 1800ml (7 cups) Addtl Attending Provider Instructions: Please take precaution to avoid falls Continue aspirin and Plavix for 30 days Further recommendation will be given by the it operations manager during follow-up appointment Pending Studies at Discharge: No Stand-Alone Forms: [facility], Smoking Cessation Medications and DC Order Prescriptions: New clopidogrel 75 mg Tablet 75 mg PO QAM 30 Days Qty: 30 RF: 0 isosorbide dinitrate 20 mg Tablet 20 mg PO BID@0700,1200 30 Days Qty: 60 RF: 0 Continued allopurinol 300 mg Tablet 300 mg PO DAILY Qty: 0 RF: 0 atorvastatin [Lipitor] 80 mg Tablet 80 mg PO DAILY Qty: 0 RF: 0 Lantus U-100 Insulin 100 unit/mL Solution 26 unit subcut PM Qty: 0 RF: 0 lorazepam 2 mg Tablet 2 mg PO HS Qty: 0 RF: 0 insulin aspart U-100 100 unit/mL (3 mL) Insulin Pen 10 unit SUBCUT QAM Qty: 0 RF: 0 insulin aspart U-100 100 unit/mL (3 mL) Insulin Pen 18 unit SUBCUT BID Qty: 0 RF: 0 amlodipine [Norvasc] 5 mg Tablet 5 mg PO DAILY Qty: 0 RF: 0 nystatin-triamcinolone 100,000-0.1 unit/g-% Cream 1 applic TOPICAL BID Qty: 0 RF: 0 Lantus U-100 Insulin 100 unit/mL Solution 43 unit SUBCUT QAM Qty: 0 RF: 0 nitroglycerin [Nitrostat] 0.4 mg tablet, sublingual 0.4 mg sublingual Q5M PRN (Reason: Chest Pain) Qty: 0 RF: 0 spironolactone [Aldactone] 25 mg tablet 12.5 mg PO DAILY RF: 0 potassium chloride 20 mEq tablet extended release 20 meq PO BID RF: 0 torsemide 20 mg tablet 20 mg PO BID RF: 0 aspirin [Aspir-81] 81 mg Tablet,Delayed Release (Dr/Ec) 81 mg PO DAILY RF: 0 metoprolol succinate [Toprol XL] 25 mg tablet extended release 24 hr 25 mg PO DAILY RF: 0 Discharge Orders: Discharge Order (Routine); Ordered 10/16/19 Ordered By: Sandy Naqvi Admission Data Admit Date/Time: 10/12/19 21:07 Attending Provider: Sandy Naqvi Admit Provider: Rachel Olivera Primary Care Provider: Radha Khan Other Providers: Johnathon Castillo ; Tc Mike ; Rachel Olivera Other Interventions: Discharge Summary Assessment (RN) Last Done: 10/16/19 12:24 DC Date/Time DO NOT enter until pt leaves facility: 10/16/19 15:14
== END 2019-10-16 15:14 | disposition home or self-care (01) | DRG 287 ==
LOC: ED 17:50 → 2N 21:07 → SUATTDRO 21:07 → 2N 21:51 → 2S 10-15 13:39

== ENCOUNTER 2021-07-15 11:53 | Inpatient (IN) ==
[2021-07-15] MEDS ORDERED: dexAMETHasone**PF** 10 MG/ML VIAL IV ONE (12:22)
--- NOTE | 2021-07-15 12:25 | Emergency Department Note ---
Impression & Plan COVID-19, Respiratory failure with hypoxia ED Provider Note Name: CECILIA SILVA Age: 80 Sex: F Arrives Via: Ambulance Informant: Patient, EMS ED Provider: Jim Hernandez MD Chief Complaint: Shortness of breath Impression: As Per Impressions Above Medical Decision Makin-year-old female with extensive past medical history arrives after 10 days of Covid-like symptoms and positive outpatient PCR testing for COVID-19. She arrives short of breath hypoxic mild distress. Despite increasing O2 NC and then to nonrebreather without improvement in oxygen saturations above mid 80s. Patient transitioned to BiPAP with excellent response and feeling much better. She was given 10 mg IV Decadron for treatment of her Covid. Chest x-ray consistent with extensive Covid inflammation. Labs obtained and stable. Patient without history of DVT PE and will defer CTA imaging to hospitalist at their discretion. Patient repetitively evaluated and doing well on BiPAP without specific complaints. Hospitalist then to evaluate further followed by critical care team. Of note per patient she has received 2 Covid vaccinations roughly 6+ months ago. Prior Medical Record and Triage/Nursing Notes reviewed by Me Additional history obtained from chart and EPIC Differentials:Reactive airway disease, pneumonia, pneumothorax, COPD, CHF, infections, cardiac ischemia, pulmonary embolism, musculoskeletal, gastrointestinal, as well as other pathologies. Vital Signs: reviewed and remarkable for hypoxia Interventions: decadron 10mg iv, BiPAP Labs:Reviewed and remarkable for no significant abnormalities Imaging:See Below EKG:Per My Interpretation: Indication SHOB: NSR 70 bpm, qtc 447. No Ectopy. No Ischemia. Compared to EKG 10/14/19, no significant changes. Cardiac/Tele Monitoring: Cardiac Monitoring: An Order was placed for continuous cardiac monitoring. The monitor shows a rate of 70 with a normal sinus rhythm. Consults:Dr Ambrosio Echeverria Hospitalist Plan: Disposition:Hospitalization. Condition: Fair History of Present Illness:80 yr old female arrives for evaluation of shortness of breath. Patient with 10 days of illness, having tested positive for Covid last week. She notes worsening breathing over the last 2 to 3 days. Increased home O2 to 24 hrs a day and started Decadron yesterday (no dose today). Worsening breathing overnight. Home health noted O2 in the 70s with exertion which is new for her and then EMS contacted. Patient notes Duoneb prior to arrival by EMS helped some. Denies chest pain. Denies current shortness of breath while on 4 L NC O2. Previous fevers, chills, lack of appetite, weakness which have improved some until a few days ago. No syncope, headache, leg swelling (beyond baseline), rashes, nor other symptoms. ROS: See above HPI for pertinent positives & negatives. A total of 10 systems reviewed and were otherwise negative. Past Medical History:See Below Past Surgical History:See Below Family History:See Below Social History:See Below Home Medications:See Below Allergies:See Below Vitals:Blood Pressure: 150/70, Pulse 70, RR 22, T 36.3C, O2 88% on 4L NC Physical Exam: GENERAL: Patient is chronically unwell appearing and in mild distress. EYES: No scleral icterus, unremarkable pupils. ENT: Mucous membranes moist, no nasal congestion. NECK: No masses appreciated, nomeningismus, trachea is midline. RESPIRATORY: Mild dyspnea, diffuse crackles and decreased breath sounds at bases CARDIOVASCULAR: Regular rate and rhythm.No murmurs, rubs, gallops appreciated. GASTROINTESTINAL: Abdomen soft, non-tender, no peritonitis.Bowel sounds positive.No masses appreciated. BACK: No midline tenderness, no CVA tenderness EXTREMITIES: Normal motion all extremities, no cyanosis, 2+ edema bilateral legs NEUROLOGIC: Alert and oriented, no acute motor or sensory deficits, no focal weakness, cranial nerves grossly intact. SKIN: No rash, no jaundice, no diaphoresis. PSYCH: Appropriate GCS: 15 ED Course: Times/Reassessments: vastly improved on bipap Critical Care: I have personally spent 35 minutes of critical care time in the direct management of this patient. Acute respiratory failure secondary to Covid 19. This was a life/limb threatening event. This 35 minutes is in excess of all separately billable procedures. Jim Hernandez MD Past Med/Surg History Medical History (Updated 07/15/21 @ 18:15 by Jim Hernandez MD) Bradycardia Cataracts, bilateral Coronary artery disease Coronary artery disease Diabetes Edema Gout Hyperparathyroidism Hypertension Kidney disease, chronic, stage IV (severe, EGFR 15-29 ml/min) Neuropathy Weakness Surgical History History of 3 sections History of total right knee replacement S/P angioplasty with stent Family History Mother Heart disease Diabetes Brother Diabetes Social History Smoking Status: Never smoker Hx Alcohol Use: No Hx Substance Use: No Preferred Language: American Communication Ability: Effective 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: No Beliefs That Will Affect Care: None marital status: / Current Living Situation: Alone Feels Safe at Home: Yes Assistive Devices: None Allergies Allergies Allergy/AdvReac Type Severity Reaction Status Date / Time Bactrim Allergy Unknown RASH Verified 04/14/18 12:03 sulfamethoxazole Allergy Unknown RASH Verified 07/15/21 14:50 trimethoprim Allergy Unknown RASH Verified 07/15/21 14:50 codeine AdvReac Mild nausea Verified 07/15/21 14:50 Home Meds Home Medications Medication Instructions Recorded Confirmed allopurinol 300 mg tablet 300 mg PO DAILY #0 tab 05/03/12 07/15/21 atorvastatin 80 mg tablet (Lipitor) 80 mg PO DAILY #0 tab 08/04/15 07/15/21 insulin aspart U-100 100 unit/mL 10 unit SUBCUT QAM #0 04/07/17 07/15/21 (3 mL) subcutaneous pen insulin aspart U-100 100 unit/mL 18 unit SUBCUT BID #0 04/07/17 07/15/21 (3 mL) subcutaneous pen insulin glargine 100 unit/mL 26 unit SUBCUT PM #0 04/07/17 07/15/21 subcutaneous solution (Lantus U-100 Insulin) lorazepam 2 mg tablet 2 mg PO HS #0 04/07/17 07/15/21 amlodipine 5 mg tablet (Norvasc) 5 mg PO DAILY #0 tab 11/27/17 07/15/21 insulin glargine 100 unit/mL 43 unit SUBCUT QAM #0 pen 04/14/18 07/15/21 subcutaneous solution (Lantus U-100 Insulin) nitroglycerin 0.4 mg sublingual 0.4 mg SUBLINGUAL Q5M PRN #0 tab 04/16/19 07/15/21 tablet (Nitrostat) potassium chloride 20 mEq 40 meq PO DAILY tab 04/16/19 07/15/21 tablet,extended release spironolactone 25 mg tablet 12.5 mg PO DAILY tab 04/16/19 07/15/21 (Aldactone) aspirin 81 mg tablet,delayed 81 mg PO DAILY 10/12/19 07/15/21 release (Aspir-) metoprolol succinate 25 mg 25 mg PO DAILY 10/12/19 07/15/21 tablet,extended release 24 hr (Toprol XL) torsemide 20 mg tablet 20 mg PO BID 10/12/19 07/15/21 gabapentin 100 mg tablet 100 mg PO TID 05/22/21 07/15/21 isosorbide dinitrate 20 mg tablet 20 mg PO BID 05/22/21 07/15/21 polyethylene glycol 3350 17 gram 17 g PO DAILY 05/22/21 07/15/21 oral powder packet (Miralax) benzonatate 200 mg capsule 200 mg PO TID PRN 07/15/21 07/15/21 dexamethasone 6 mg tablet 6 mg PO DAILY 07/15/21 07/15/21 Results & Data (ED) Vital Signs Vital Signs - 24 hr 07/15/21 12:31 07/15/21 12:34 07/15/21 12:46 Temperature 36.3 C L Temperature Source Oral Pulse Rate 69 64 Pulse Rate [Apical] 68 Pulse Rate from SpO2 Sensor Pulse Rhythm Regular Pulse Rhythm [Apical] Pulse Strength Normal Pulse Strength [Apical] Respiratory Rate 20 20 22 Respiratory Effort / Characteristics Non-Labored Spontaneous Labored Spontaneous Labored Short of Breath Respiratory Depth Normal Deep Normal Respiratory Pattern Regular Irregular Regular Blood Pressure 156/58 H Blood Pressure [Right Arm] 156/58 H Blood Pressure Mean 90 Blood Pressure Mean [Right Arm] 90 Blood Pressure Position Lying Blood Pressure Position [Right Arm] Pulse Oximetry 97 83 L 95 Oxygen Delivery Method BiPAP Nasal Cannula Oxygen Flow Rate 4 4 Fraction of Inspired Oxygen 80 Sepsis Recent Fever Within 48 Hours No Sepsis New/Unexplained Change in Mental Status No Sepsis Action Taken by Nursing No Action Required Fraction of Inspired Oxygen - Titration 10 Pulse Oximetry Post Tiitration 95 07/15/21 13:17 07/15/21 13:30 07/15/21 14:00 Temperature Temperature Source Pulse Rate 68 70 67 Pulse Rate [Apical] Pulse Rate from SpO2 Sensor 68 66 68 Pulse Rhythm Pulse Rhythm [Apical] Pulse Strength Pulse Strength [Apical] Respiratory Rate 20 22 19 Respiratory Effort / Characteristics Respiratory Depth Respiratory Pattern Blood Pressure 149/93 H 151/56 H 150/68 H Blood Pressure [Right Arm] Blood Pressure Mean 111 87 95 Blood Pressure Mean [Right Arm] Blood Pressure Position Blood Pressure Position [Right Arm] Pulse Oximetry 98 99 96 Oxygen Delivery Method BiPAP BiPAP BiPAP Oxygen Flow Rate Fraction of Inspired Oxygen Sepsis Recent Fever Within 48 Hours Sepsis New/Unexplained Change in Mental Status Sepsis Action Taken by Nursing Fraction of Inspired Oxygen - Titration Pulse Oximetry Post Tiitration 07/15/21 14:30 07/15/21 14:46 07/15/21 15:00 Temperature Temperature Source Pulse Rate 67 68 Pulse Rate [Apical] 68 Pulse Rate from SpO2 Sensor 70 Pulse Rhythm Pulse Rhythm [Apical] Regular Pulse Strength Pulse Strength [Apical] Normal Respiratory Rate 19 22 20 Respiratory Effort / Characteristics Respiratory Depth Respiratory Pattern Blood Pressure 154/89 H 108/68 Blood Pressure [Right Arm] 154/89 H Blood Pressure Mean 110 81 Blood Pressure Mean [Right Arm] 110 Blood Pressure Position Blood Pressure Position [Right Arm] Lying Pulse Oximetry 89 L 95 88 L Oxygen Delivery Method BiPAP BiPAP Oxygen Flow Rate Fraction of Inspired Oxygen Sepsis Recent Fever Within 48 Hours Sepsis New/Unexplained Change in Mental Status Sepsis Action Taken by Nursing Fraction of Inspired Oxygen - Titration Pulse Oximetry Post Tiitration Laboratory Data Result diagrams: 07/15/21 12:40 07/15/21 12:40 Lab Results 07/15/21 07/15/21 07/15/21 Range/Units 12:40 12:40 12:40 WBC 11.43 H (4.8-10.8) K/uL RBC 4.39 (4.2-5.4) M/uL Hgb 13.9 (12.0-16.0) g/dL Hct 42.0 (37-47) % MCV 95.7 (80-100) fL MCH 31.7 (25-34) pg MCHC 33.1 (32-36) g/dL RDW Std Deviation 50.0 H (36.4-46.3) fL RDW Coeff of Favian 14.2 (11.5-14.5) % Plt Count 155 (130-400) K/uL MPV 11.7 H (7.4-10.4) fL Immature Gran % (Auto) 0.3 % Neut % (Auto) 90.1 % Lymph % (Auto) 3.2 % Anderson % (Auto) 6.4 % Eos % (Auto) 0.0 % Baso % (Auto) 0.0 % Neut # (Auto) 10.30 H (1.4-6.5) K/uL Lymph # (Auto) 0.37 L (1.2-3.4) K/uL Anderson # (Auto) 0.73 H (0.11-0.59) K/uL Eos # (Auto) 0.00 (0-0.5) K/uL Baso # (Auto) 0.00 (0-0.2) K/uL Immature Gran # (Auto) 0.03 H (0.00-0.02) K/uL Sodium 134 L (136-145) mmol/L Potassium 4.4 (3.5-5.1) mmol/L Chloride 100 (98-107) mmol/L Carbon Dioxide 28 (21-32) mmol/L Anion Gap 6.0 (3-11) BUN 68 H (7-18) mg/dl Creatinine 1.93 H (0.6-1.2) mg/dl Est Cr Clr Drug Dosing Not Reportable Est GFR ( Amer) 28.0 ml/min Est GFR (Non-Af Amer) 24.2 ml/min BUN/Creatinine Ratio 35.2 H (10-20) Glucose 250 H (70-99) mg/dl Calcium 9.9 (8.5-10.1) mg/dl Magnesium 2.4 (1.8-2.4) mg/dl Troponin I < 0.015 (0-0.045) ng/ml NT-Pro-B Natriuret Pep 909 (0-1800) pg/ml Procalcitonin 0.27 (0-0.5) ng/ml Administered Medications Discontinued Medications Dexamethasone Sodium Phosphate (DexamethasonePf 10 Mg/Ml Vial) 10 mg IV NOW ONE Stop: 07/15/21 12:23 Last Admin: 07/15/21 12:57 Dose: 10 mg Documented by: [id number] Imaging Data Radiologist's Impression: Chest X-Ray 07/15/21 12:21 XR chest 1V portable CLINICAL HISTORY: Shortness of breath. COMPARISON STUDY: Chest radiograph October 12, 2019. FINDINGS: Lung volumes are normal. There is no pneumothorax or pleural effusion. Extensive bilateral airspace opacities are present. Dual-lead left subclavian pacemaker is in place. Cardiomegaly is unchanged. There's mitral annular calcification. IMPRESSION: Extensive bilateral airspace opacities which favor an infectious process such as viral pneumonia. Radiographic follow-up to ensure resolution is recommended. ACT 112: Negative or not required by law. Electronically signed by: Carroll Rodriguez M.D. 07/15/2021 1:29 PM Discharge Plan Visit Data Chief Complaint: Shortness of Breath/Dyspnea ED Provider: Jim Hernandez Discharge Problem: COVID-19, Respiratory failure with hypoxia Patient Disposition: Admitted As Inpatient Discharge Instructions Interventions: ED Discharge Assessment Last Done: 07/15/21 19:05 Discharge Problem: Respiratory failure with hypoxia Qualifiers: Chronicity: acute Qualified Code(s): J96.01 - Acute respiratory failure with hypoxia
[2021-07-15 12:57] LABS: Hemoglobin 13.9 g/dL (12.0-16.0); Immature Granulocytes # (auto) 0.03 K/uL (0.00-0.02); Immature Granulocytes % (auto) 0.3 %; Lymphocytes # (auto) 0.37 K/uL (1.2-3.4); Lymphocytes % (auto) 3.2 %; Mean Corpuscular Hemoglobin 31.7 pg (25-34); Mean Corpuscular Hgb Conc 33.1 g/dL (32-36); Mean Corpuscular Volume 95.7 fL (80-100); Mean Platelet Volume 11.7 fL (7.4-10.4); Monocytes # (auto) 0.73 K/uL (0.11-0.59); Monocytes % (auto) 6.4 %; Neutrophils % (auto) 90.1 %; Platelet Count 155 K/uL (130-400); RDW Coefficient of Variation 14.2 % (11.5-14.5); Red Blood Count 4.39 M/uL (4.2-5.4); White Blood Count 11.43 K/uL (4.8-10.8)
[2021-07-15 13:15] LABS: BUN Creatinine Ratio 35.2 (10-20); Blood Urea Nitrogen 68 mg/dl (7-18); Calcium 9.9 mg/dl (8.5-10.1); Carbon Dioxide 28 mmol/L (21-32); Chloride 100 mmol/L (98-107); Est GFR (Non-African American) 24.2 ml/min; Glucose 250 mg/dl (70-99); Magnesium 2.4 mg/dl (1.8-2.4); Potassium 4.4 mmol/L (3.5-5.1); Sodium 134 mmol/L (136-145)
[2021-07-15 13:20] LABS: NT Pro B Type Natriuretic Pept 909 pg/ml (0-1800); Troponin I < 0.015 ng/ml (0-0.045)
--- NOTE | 2021-07-15 13:31 | XRay Report ---
XR chest 1V portable CLINICAL HISTORY: Shortness of breath. COMPARISON STUDY: Chest radiograph October 12, 2019. FINDINGS: Lung volumes are normal. There is no pneumothorax or pleural effusion. Extensive bilateral airspace opacities are present. Dual-lead left subclavian pacemaker is in place. Cardiomegaly is unch anged. There's mitral annular calcification. IMPRESSION: Extensive bilateral airspace opacities which favor an infectious process such as viral p neumonia. Radiographic follow-up to ensure resolution is recommended. ACT 112: Negative or not required by law. Electronically signed by: Carroll Rodriguez M.D. 07/15/2021 1:29 PM
--- NOTE | 2021-07-15 15:33 | History & Physical Report ---
Date of Service July 15, 2021 Assessment & Plan (1) Respiratory failure with hypoxia: (2) COVID-19: Plan: 1. COVID #. Acute on chronic hypoxic respiratory failuresecondary to above Patient has sinus symptoms since last 10 days, also complains of cough with yellow sputum. Patient vaccinated fully against Covid, last dose November 2020 Admitting CXR suggestive of viral pneumonia, procalcitonin negative, monitor for bacterial superinfection Not a candidate for remdesivir, continue with dexamethasone Incentive spirometer/flutter valve/proning as able/Covid parameters High flow nasal cannula alternating with BiPAP, if needing increased oxygen, consider consulting pulm Lasix as needed, BNP WNL, troponin x1 -, keep patients on dipper and drier side. #. Mild hyponatremia Sodium level 134, monitor daily sodium level Likely secondary to Covid versus decreased appetite versus unknown etiology Consider sending urine osmolality and serum osmolality along with TSH if persistent low sodium level #. MIld ASPEN on CKD Baseline 1.5-1.7; presenting creatinine 1.93 Hold nephrotoxic including torsemide and spironolactone--> KCl supplementation also held due to prior Monitor BMP daily If uptrending, consider gentle hydration 4. DM on insulin SSI, glycemic pharmacy ssI glycemic pharmacy DVT prophylaxis: Heparin due to ASPEN component, transition to enoxaparin once ASPEN resolves Full code History of Present Illness Chief Complaint: Worsening SOB x last 2-3 days Primary Care Provider: Jeanna Khan DO 80-year-old female with PMH of respiratory failure with hypoxia, CKD, hyperparathyroidism, morbid obesity, HLD, neuropathy, diastolic CHF, HTN, CAD, lymphedema, junctional bradycardia, HTN and intractable back pain presented to our ED 07/15 with complaint of cough and runny nose since last 10 days associated with worsening of shortness of breath since last 2 to 3 days. Patient complains of cough with yellow sputum but denies any fever. Patient also states having headache. Patient reports constipation at baseline. Patient denies any belly pain/chest pain/pain or burning while passing urine/acute changes in her bowel habits recently. No personal history of cancer clot per patient. No history of seizure or stroke. Patient uses 2 L oxygen at night since last few years. She reports increasing the need of oxygen recently. Family history is significant for NV at age 68 in mother and at age 66 and brother. Patient has a history of NV x1 with status post stent x1 and CAD status post pacer. Patient denies smoking/alcohol consumption/recreational drugs Full code Allergies Allergy/AdvReac Type Severity Reaction Status Date / Time Bactrim Allergy Unknown RASH Verified 04/14/18 12:03 sulfamethoxazole Allergy Unknown RASH Verified 07/15/21 14:50 trimethoprim Allergy Unknown RASH Verified 07/15/21 14:50 codeine AdvReac Mild nausea Verified 07/15/21 14:50 Home Medications Medication Instructions Recorded Confirmed Type allopurinol 300 mg tablet 300 mg PO DAILY #0 tab 05/03/12 07/15/21 History atorvastatin 80 mg tablet (Lipitor) 80 mg PO DAILY #0 tab 08/04/15 07/15/21 History insulin aspart U-100 100 unit/mL 10 unit SUBCUT QAM #0 04/07/17 07/15/21 History (3 mL) subcutaneous pen insulin aspart U-100 100 unit/mL 18 unit SUBCUT BID #0 04/07/17 07/15/21 History (3 mL) subcutaneous pen insulin glargine 100 unit/mL 26 unit SUBCUT PM #0 04/07/17 07/15/21 History subcutaneous solution (Lantus U-100 Insulin) lorazepam 2 mg tablet 2 mg PO HS #0 04/07/17 07/15/21 History amlodipine 5 mg tablet (Norvasc) 5 mg PO DAILY #0 tab 11/27/17 07/15/21 History insulin glargine 100 unit/mL 43 unit SUBCUT QAM #0 pen 04/14/18 07/15/21 History subcutaneous solution (Lantus U-100 Insulin) nitroglycerin 0.4 mg sublingual 0.4 mg SUBLINGUAL Q5M PRN #0 tab 04/16/19 07/15/21 History tablet (Nitrostat) potassium chloride 20 mEq 40 meq PO DAILY tab 04/16/19 07/15/21 History tablet,extended release spironolactone 25 mg tablet 12.5 mg PO DAILY tab 04/16/19 07/15/21 History (Aldactone) aspirin 81 mg tablet,delayed 81 mg PO DAILY 10/12/19 07/15/21 History release (Aspir-) metoprolol succinate 25 mg 25 mg PO DAILY 10/12/19 07/15/21 History tablet,extended release 24 hr (Toprol XL) torsemide 20 mg tablet 20 mg PO BID 10/12/19 07/15/21 History gabapentin 100 mg tablet 100 mg PO TID 05/22/21 07/15/21 History isosorbide dinitrate 20 mg tablet 20 mg PO BID 05/22/21 07/15/21 History polyethylene glycol 3350 17 gram 17 g PO DAILY 05/22/21 07/15/21 History oral powder packet (Miralax) benzonatate 200 mg capsule 200 mg PO TID PRN 07/15/21 07/15/21 History dexamethasone 6 mg tablet 6 mg PO DAILY 07/15/21 07/15/21 History Past Med/Surg History Medical History (Updated 07/15/21 @ 18:15 by Jim Hernandez MD) Bradycardia Cataracts, bilateral Coronary artery disease Coronary artery disease Diabetes Edema Gout Hyperparathyroidism Hypertension Kidney disease, chronic, stage IV (severe, EGFR 15-29 ml/min) Neuropathy Weakness Surgical History History of 3 sections History of total right knee replacement S/P angioplasty with stent Family History Mother Heart disease Diabetes Brother Diabetes Social History Smoking Status: Never smoker Hx Alcohol Use: No Hx Substance Use: No Preferred Language: Portuguese Communication Ability: Effective Databases Software Consultant Required: No Beliefs That Will Affect Care: None marital status: / Current Living Situation: Alone Feels Safe at Home: Yes Assistive Devices: None Physical Exam Physical Exam: GENERAL: Alert and oriented x3. NAD, on BPAP making communication difficult. HEENT: No pallor, no icterus. Pupils equal, round and reactive to light. Oral mucosa dry. NECK: No JVD, no neck masses. HEART: S1 and S2 heard. Regular rate and rhythm. No murmur appreciated, no gallop. RESPIRATORY SYSTEM: Normal AP diameter. No accessory muscle use. No wheezing, fine crackles diffuse and b/l pronounced bibasilar. Wet cough. ABDOMEN: Soft, bowel sounds present, nontender, no distention. CENTRAL NERVOUS SYSTEM: Alert and oriented x3. No facial droop. Speech is clear. Obeys simple commands. Moves extremities. EXTREMITIES: 1+ BLE edema with chronic skin changes, no erythema seen. Results & Data Results & Data ([facility]) Vital Signs (Past 12 Hours) Vital Signs Temp Pulse Pulse Resp BP BP Pulse Ox 07/15/21 15:00 68 20 108/68 88 L 07/15/21 14:46 68 22 154/89 H 95 07/15/21 14:30 67 19 154/89 H 89 L 07/15/21 14:00 67 19 150/68 H 96 07/15/21 13:30 70 22 151/56 H 99 07/15/21 13:17 68 20 149/93 H 98 07/15/21 12:46 64 22 95 07/15/21 12:34 36.3 C L 69 20 156/58 H 83 L 07/15/21 12:31 68 20 156/58 H 97 Code Status & VTE Plan VTE Prophylaxis Plan VTE Prophylaxis will be ordered: Yes (1) Respiratory failure with hypoxia Chronicity: acute Qualified Code(s): J96.01 - Acute respiratory failure with hypoxia
[2021-07-15] MEDS ORDERED: GLUCOSE 10 TABS/TUBE PO PRN (19:06)
[2021-07-15] MEDS ORDERED: CARBOHYDRATES FOR HYPOGLYCEMIA PO PRN (19:06)
[2021-07-15] MEDS ORDERED: DEXTROSE 50% 50 ML SYRINGE IV PRN (19:06)
[2021-07-15] MEDS ORDERED: PHARMACY GLYCEMIC MGMT CONSULT PRN (19:06)
[2021-07-15] MEDS ORDERED: NITROGLYCERIN SL 0.4 MG/TAB TAB SL PRN (19:06)
[2021-07-15] MEDS ORDERED: GLUCOSE 40% GEL 15 GM TUBE PO PRN (19:06)
[2021-07-15] MEDS ORDERED: GLUCAGON FOR INJ 1 MG VIAL SQ PRN (19:06)
[2021-07-15 20:16] LABS: C Reactive Protein 9.53 mg/dl (0-0.29)
[2021-07-15] MEDS ORDERED: INSULIN GLARGINE SOLOSTAR 100 UNITS/ML 3 ML PEN SC SCH (21:00)
[2021-07-15] MEDS ORDERED: INSULIN ASPART 100 UNITS/ML 3 ML PEN SC SCH (21:00)
[2021-07-15] MEDS: GABAPENTIN 100 MG CAP PO SCH (23:31)
[2021-07-15] MEDS: BENZONATATE 100 MG CAPSULE PO SCH (23:31)
[2021-07-15] MEDS: INSULIN ASPART 100 UNITS/ML 3 ML PEN SC SCH (23:32)
[2021-07-15] MEDS: LORazepam 1 MG TAB PO SCH (23:34)
[2021-07-16] MEDS: INSULIN ASPART 100 UNITS/ML 3 ML PEN SC SCH ×6 (00:14→21:15)
[2021-07-16] MEDS: HEPARIN SOD 5,000 UNIT/0.5 ML VIAL SQ SCH ×4 (00:19→22:03)
--- NOTE | 2021-07-16 06:54 | Electrocardiogram Report ---
Test Reason : Blood Pressure : / mmHG Vent. Rate : 070 BPM Atrial Rate : 070 BPM P-R Int : 140 ms QRS Dur : 092 ms QT Int : 414 ms P-R-T Axes : 004 -02 044 degrees QTc Int : 447 ms Poor data quality, interpretation may be adversely affected Normal sinus rhythm Normal ECG When compared with ECG of 14-OCT-2019 21:48, Atrial pacing is no longer present Confirmed by Michael Anne ([id number]) on 07/16/2021 6:53:51 AM Referred By: Confirmed By:Michael Anne
[2021-07-16 07:23] LABS: Hematocrit (blood only) 39.1 % (37-47); Mean Corpuscular Hemoglobin 31.8 pg (25-34); Mean Corpuscular Hgb Conc 33.2 g/dL (32-36); Mean Corpuscular Volume 95.6 fL (80-100); Mean Platelet Volume 11.7 fL (7.4-10.4); Platelet Count 155 K/uL (130-400); RDW Coefficient of Variation 14.2 % (11.5-14.5); RDW Standard Deviation 49.7 fL (36.4-46.3); Red Blood Count 4.09 M/uL (4.2-5.4); White Blood Count 12.35 K/uL (4.8-10.8)
[2021-07-16 07:40] LABS: Albumin Level 2.2 gm/dl (3.4-5.0); BUN Creatinine Ratio 42.5 (10-20); Blood Urea Nitrogen 66 mg/dl (7-18); Calcium 9.3 mg/dl (8.5-10.1); Carbon Dioxide 25 mmol/L (21-32); Chloride 104 mmol/L (98-107); Est GFR (African American) 36.2 ml/min; Est GFR (Non-African American) 31.3 ml/min; Glucose 225 mg/dl (70-99); Potassium 4.3 mmol/L (3.5-5.1); Sodium 138 mmol/L (136-145)
[2021-07-16 07:43] LABS: Alanine Aminotransferase 22 U/L (12-78); Albumin Globulin Ratio 0.5 (0.9-2); Alkaline Phosphatase 65 U/L (45-117); Aspartate Aminotransferase 46 U/L (15-37); Bilirubin,Total 0.7 mg/dl (0.2-1); Globulin 4.6 gm/dl (2.5-4.0); Total Protein 6.8 gm/dl (6.4-8.2)
[2021-07-16] MEDS: ISOSORBIDE DINITRATE 20 MG TAB PO SCH ×2 (08:05→12:35)
[2021-07-16] MEDS ORDERED: LANTUS PER UNIT CHARGE SQ SCH (09:00)
[2021-07-16] MEDS ORDERED: INSULIN GLARGINE SOLOSTAR 100 UNITS/ML 3 ML PEN SC SCH ×2 (09:00→21:00)
[2021-07-16] MEDS ORDERED: NovoLIN-N (NPH) PER UNIT CHARGE SQ ONE (09:00)
[2021-07-16] MEDS: POLYETHYLENE (MIRALAX) 17 GM PACK PO SCH (09:54)
[2021-07-16] MEDS: amLODIPine BESYLATE 5 MG TAB PO SCH (09:57)
[2021-07-16] MEDS: ASPIRIN 81 MG ECTAB PO SCH (09:57)
[2021-07-16] MEDS: BENZONATATE 100 MG CAPSULE PO SCH ×3 (09:58→21:17)
[2021-07-16] MEDS: ATORVASTATIN 40 MG TAB PO SCH (09:58)
[2021-07-16] MEDS: dexAMETHasone 6 MG in SYRINGE 0 ML IV SCH (09:59)
[2021-07-16] MEDS: GABAPENTIN 100 MG CAP PO SCH ×3 (09:59→21:17)
[2021-07-16] MEDS: METOPROLOL SUCC 25MG EXT REL TAB PO SCH (10:01)
[2021-07-16] MEDS: ACETAMINOPHEN 500 MG TAB PO PRN (12:34)
[2021-07-16] MEDS: ondansetron HCL 6 MG in DEXTROSE 5% 50 ML IV PRN ×2 (13:11→22:59)
--- NOTE | 2021-07-16 13:21 | Pharmacy Report ---
Pharmacy Glycemic Short Note 2 - Date of Service July 16, 2021 - Glycemic Short BSG Results (Last 24 hours): 07/15/21 07/16/21 07/16/21 21:51 01:31 05:59 Glucose POC Glucose 300 H 290 H 210 H 07/16/21 07/16/21 07/16/21 06:58 07:54 11:44 Glucose 225 H POC Glucose 208 H 257 H OUTPATIENT ANTIDIABETIC REGIMEN: * Lantus 43 units SC qAM, 26 units qPM * Novolog 10 units SC w/ breakfast, 18 units with lunch and dinner + SSI CF of 12 over 150 mg/dL * HbA1c: pending ASSESSMENT: * CB is a 80 year old female admitted on 07/15/21 with COVID-19 pneumonia * BSGs elevated yesterday, likely in part due to uncovered IV dexamethasone * Dexamethasone 6 mg IV daily ordered ongoing - will cover with ~0.4 unit/kg NPH, maintain aggressive Novolog parameters * ASPEN improving (SCr: 1.93 -> 1.56 mg/dL) PLAN FOR INPATIENT GLYCEMIC CONTROL: * Basal insulin * Lantus 40 units SQ qAM, 15-25 units SC HS (see EHR for details) * NPH 35 units SC daily with dexamethasone (likely increase tomorrow) * Bolus insulin * NovoLog per scale ACHS or Q6hrs while NPO * Goal Range: Low 110 mg/dL - High 140 mg/dL * Correction Factor: 15 mg/dL/unit * Nutritional / Prandial insulin per carb ratio of 1 unit per 5 grams CHO consumed * ,04 checks with same parameters PLAN FOR DISCHARGE: * tbd
--- NOTE | 2021-07-16 16:18 | Hospitalist Progress Note ---
Date of Service July 16, 2021 Assessment & Plan (1) Respiratory failure with hypoxia: (2) COVID-19: Plan: Patient vaccinated fully against Covid, last dose November 2020 Plan: 1. COVID #. Acute on chronic hypoxic respiratory failuresecondary to above Patient vaccinated fully against Covid, last dose November 2020 Patient has sinus symptoms since last 10 days, also complains of cough with yellow sputum. Admitting CXR suggestive of viral pneumonia, procalcitonin negative, monitor for bacterial superinfection Not a candidate for remdesivir, continue with dexamethasone Incentive spirometer/flutter valve/proning as able/Covid parameters High flow nasal cannula alternating with BiPAP, if needing increased oxygen, consider consulting pulm Lasix as needed, BNP WNL, troponin x1 -, keep patients on drier tender naphthalene side. Clinically minimally better We will continue with cough suppressants and will not give any Lasix given abnormal creatinine #. Mild hyponatremia Sodium level 134, monitor daily sodium level Likely secondary to Covid versus decreased appetite versus unknown etiology Consider sending urine osmolality and serum osmolality along with TSH if persistent low sodium level Sodium level has been normalized #. MIld ASPEN on CKD Baseline 1.5-1.7; presenting creatinine 1.93 Hold nephrotoxic including torsemide and spironolactone--> KCl supplementation also held due to prior Monitor BMP daily If uptrending, consider gentle hydration Creatinine has been around 1.56-we will hold off any Lasix 4. DM on insulin SSI, glycemic pharmacy ssI glycemic pharmacy DVT prophylaxis: Heparin due to ASPEN component, transition to enoxaparin once ASPEN resolves Full code Admission and Anticipated Discharge Date Admission Date: July 15, 2021 Subjective 07/16/2021 The patient was seen and examined in the emergency room in the [facility] area She has been complaining of nausea and moderate shortness of breath at rest Denies any chest pain and/or palpitation Review of Systems Review of Systems: All systems are reviewed and are unremarkable except as mentioned below Respiratory: Mild to moderate shortness of breath at rest Gastrointestinal: Nausea Neurologic: Generalized weakness Physical Exam Physical Exam: Lying in bed with moderate shortness of breath Constitutional: well developed, well nourished, + ill appearing and + obese Eyes: PERRL, conjunctivae normal, anicteric sclerae ENMT: external ear and nose normal, oropharynx normal Neck: trachea midline, no thyromegaly Respiratory: + respiratory distress (Moderate respiratory distress) and + cough Auscultation: + diminished lung sounds and + crackles (Minimal crackles at the bases) Gastrointestinal (Abdomen): Inspection/Auscultation: + abdomen distended and normal bowel sounds Percussion/Palpation: abdomen soft; abdomen nontender Musculoskeletal: No acute arthritis in any joint Neurologic: Alert, awake and oriented x3 Results & Data Results & Data ([facility]) Vital Signs (Past 12 Hours) Vital Signs Pulse Pulse Resp BP BP Pulse Ox 07/16/21 15:52 63 30 H 92 07/16/21 15:37 58 L 24 129/65 129/65 92 07/16/21 14:35 68 33 H 96 07/16/21 14:00 65 22 142/61 H 95 07/16/21 11:25 71 31 H 92 07/16/21 10:08 70 18 153/67 H 97 07/16/21 07:52 77 30 H 156/77 H 93 07/16/21 07:24 68 25 H 92 Laboratory Results Short CBC 07/16/21 Range/Units 06:58 WBC 12.35 H (4.8-10.8) K/uL Hgb 13.0 (12.0-16.0) g/dL Hct 39.1 (37-47) % Plt Count 155 (130-400) K/uL BMP 07/16/21 06:58 Sodium 138 Potassium 4.3 Chloride 104 Carbon Dioxide 25 BUN 66 H Creatinine 1.56 H D Glucose 225 H Calcium 9.3 Liver Function 07/16/21 Range/Units 06:58 Total Bilirubin 0.7 (0.2-1) mg/dl AST 46 H (15-37) U/L ALT 22 (12-78) U/L Alkaline Phosphatase 65 (45-117) U/L Albumin 2.2 L (3.4-5.0) gm/dl Medications Administered Current Inpatient Medications Acetaminophen (Acetaminophen 500 Mg Tab) 1,000 mg PO Q6H PRN PRN Reason: Pain Stop: 08/15/21 11:41 Last Admin: 07/16/21 12:34 Dose: 1,000 mg Documented by: Amlodipine Besylate (Amlodipine Besylate 5 Mg Tab) 5 mg PO DAILY ERICA Stop: 08/15/21 08:59 Last Admin: 07/16/21 09:57 Dose: 5 mg Documented by: Aspirin (Aspirin 81 Mg Ectab) 81 mg PO DAILY ERICA Stop: 08/15/21 08:59 Last Admin: 07/16/21 09:57 Dose: 81 mg Documented by: Atorvastatin Calcium (Atorvastatin 40 Mg Tab) 80 mg PO DAILY ERICA Stop: 08/15/21 08:59 Last Admin: 07/16/21 09:58 Dose: 80 mg Documented by: Benzonatate (Benzonatate 100 Mg Capsule) 200 mg PO TID ERICA Stop: 08/14/21 20:59 Last Admin: 07/16/21 13:56 Dose: 200 mg Documented by: Dextrose (Dextrose 50% 50 Ml Syringe) 25 - 50 ml IV UD PRN; Protocol PRN Reason: Hypoglycemia Protocol Stop: 08/14/21 19:05 Gabapentin (Gabapentin 100 Mg Cap) 100 mg PO TID ERICA Stop: 08/14/21 20:59 Last Admin: 07/16/21 13:56 Dose: 100 mg Documented by: Glucagon (Glucagon For Inj 1 Mg Vial) 1 mg SQ UD PRN; Protocol PRN Reason: Hypoglycemia Protocol Stop: 08/14/21 19:05 Glucose (Glucose 10 Tabs/Tube) 4 - 8 tabs PO UD PRN; Protocol PRN Reason: Hypoglycemia Protocol Stop: 08/14/21 19:05 Glucose (Glucose 40% Gel 15 Gm Tube) 15 - 30 gm PO UD PRN; Protocol PRN Reason: Hypoglycemia Protocol Stop: 08/14/21 19:05 Heparin Sodium (Porcine) (Heparin Sod 5,000 Unit/0.5 Ml Vial) 7,500 units SQ Q8 ERICA Stop: 08/14/21 21:59 Last Admin: 07/16/21 13:56 Dose: 7,500 units Documented by: Dexamethasone 6 mg/ Syringe 1.5 mls @ 1 mls/min IV DAILY ERICA Stop: 08/15/21 08:59 Last Admin: 07/16/21 09:59 Dose: 1 mls/min Documented by: Ondansetron HCl 6 mg/ Dextrose 53 mls @ 200 mls/hr IV Q6H PRN PRN Reason: Nausea And Vomiting Stop: 08/15/21 12:24 Last Infusion: 07/16/21 13:30 Dose: Infused Documented by: Insulin Aspart (Insulin Aspart 100 Units/Ml 3 Ml Pen) 0 units SC ACHS [facility]END[facility] TO [facility] Stop: 08/14/21 20:59 Last Admin: 07/16/21 12:29 Dose: 8 units Documented by: Insulin Aspart (Insulin Aspart 100 Units/Ml 3 Ml Pen) 0 units SC 0000,0400 [facility] Stop: 07/17/21 04:01 Insulin Glargine (Insulin Glargine Solostar 100 Units/Ml 3 Ml Pen) 0 units SC PM [facility]; Protocol Stop: 07/16/21 21:01 Isosorbide Dinitrate (Isosorbide Dinitrate 20 Mg Tab) 20 mg PO BID@0700,1200 [facility] Stop: 08/15/21 06:59 Last Admin: 07/16/21 12:35 Dose: 20 mg Documented by: Lorazepam (Lorazepam 1 Mg Tab) 2 mg PO HS [facility] Stop: 08/14/21 20:59 Last Admin: 07/15/21 23:34 Dose: Not Given Documented by: Metoprolol Succinate (Metoprolol Succ 25mg Ext Rel Tab) 25 mg PO DAILY [facility] Stop: 08/15/21 08:59 Last Admin: 07/16/21 10:01 Dose: 25 mg Documented by: Miscellaneous (Carbohydrates For Hypoglycemia ) 15 - 30 gm PO UD PRN PRN Reason: Hypoglycemia Protocol Stop: 08/14/21 19:05 Miscellaneous Information (Pharmacy Glycemic Mgmt Consult) 1 ea N/A UD PRN; Protocol PRN Reason: Consult Stop: 08/14/21 19:05 Nitroglycerin (Nitroglycerin Sl 0.4 Mg/Tab Tab) 0.4 mg SL Q5M PRN PRN Reason: Chest Pain Stop: 08/14/21 19:05 Polyethylene Glycol (Polyethylene (Miralax) 17 Gm Pack) 17 gm PO DAILY [facility] Stop: 08/15/21 08:59 Last Admin: 07/16/21 09:54 Dose: 17 gm Documented by: (1) Respiratory failure with hypoxia Chronicity: acute Qualified Code(s): J96.01 - Acute respiratory failure with hypoxia
[2021-07-16] MEDS: LORazepam 1 MG TAB PO SCH (22:00)
[2021-07-16] MEDS: guaiFENesin 600 MG TABCR PO SCH (22:01)
[2021-07-16] MEDS ORDERED: dexAMETHasone 6 MG in SYRINGE 0 ML IV SCH (23:00)
[2021-07-17] MEDS: INSULIN ASPART 100 UNITS/ML 3 ML PEN SC SCH ×6 (02:12→21:42)
[2021-07-17] MEDS ORDERED: hydrALAZINE HCL 20 MG/ML VIAL IV PRN (03:35)
[2021-07-17] MEDS: HEPARIN SOD 5,000 UNIT/0.5 ML VIAL SQ SCH ×3 (06:05→20:49)
[2021-07-17 06:47] LABS: Alanine Aminotransferase 26 U/L (12-78); Albumin Globulin Ratio 0.4 (0.9-2); Albumin Level 2.2 gm/dl (3.4-5.0); Alkaline Phosphatase 73 U/L (45-117); Aspartate Aminotransferase 60 U/L (15-37); BUN Creatinine Ratio 50.6 (10-20); Bilirubin,Total 0.7 mg/dl (0.2-1); Blood Urea Nitrogen 73 mg/dl (7-18); Carbon Dioxide 30 mmol/L (21-32); Chloride 105 mmol/L (98-107); Est GFR (African American) 39.6 ml/min; Est GFR (Non-African American) 34.2 ml/min; Glucose 102 mg/dl (70-99); Magnesium 3.1 mg/dl (1.8-2.4); Potassium 4.2 mmol/L (3.5-5.1); Sodium 138 mmol/L (136-145); Total Protein 7.2 gm/dl (6.4-8.2)
[2021-07-17 06:50] LABS: Estimated Average Glucose 169 mg/dl; Hemoglobin A1C 7.5 % (4.5-5.6)
[2021-07-17] MEDS ORDERED: INSULIN HUMAN NPH SC SCH ×2 (09:00)
[2021-07-17] MEDS ORDERED: INSULIN GLARGINE SOLOSTAR 100 UNITS/ML 3 ML PEN SC SCH ×4 (09:00→21:00)
[2021-07-17] MEDS: amLODIPine BESYLATE 5 MG TAB PO SCH (10:12)
[2021-07-17] MEDS: ISOSORBIDE DINITRATE 20 MG TAB PO SCH ×2 (10:12→14:05)
[2021-07-17] MEDS: ASPIRIN 81 MG ECTAB PO SCH (10:12)
[2021-07-17] MEDS: ATORVASTATIN 40 MG TAB PO SCH (10:13)
[2021-07-17] MEDS: GABAPENTIN 100 MG CAP PO SCH ×3 (10:14→20:49)
[2021-07-17] MEDS: dexAMETHasone 6 MG in SYRINGE 0 ML IV SCH (10:14)
[2021-07-17] MEDS: BENZONATATE 100 MG CAPSULE PO SCH ×3 (10:14→20:48)
[2021-07-17] MEDS: METOPROLOL SUCC 25MG EXT REL TAB PO SCH (10:15)
[2021-07-17] MEDS: guaiFENesin 600 MG TABCR PO SCH ×2 (10:15→20:49)
[2021-07-17] MEDS: POLYETHYLENE (MIRALAX) 17 GM PACK PO SCH (10:17)
--- NOTE | 2021-07-17 13:26 | Pharmacy Report ---
Pharmacy Glycemic Short Note 2 - Date of Service July 17, 2021 - Glycemic Short BSG Results (Last 24 hours): 07/16/21 07/16/21 07/16/21 16:53 21:04 23:54 Glucose POC Glucose 166 H 133 H 123 H 07/17/21 07/17/21 07/17/21 03:47 05:31 08:06 Glucose 102 H POC Glucose 109 H 102 H 07/17/21 11:55 Glucose POC Glucose 97 OUTPATIENT ANTIDIABETIC REGIMEN: * Lantus 43 units SC qAM, 26 units qPM * Novolog 10 units SC w/ breakfast, 18 units with lunch and dinner + SSI CF of 12 over 150 mg/dL * HbA1c: 7.5% (07/16/21) ASSESSMENT: 07/17 * BSGs trended down throughout the day yesterday, 208, 257, 166, 133, 123 mg/dL * Received 106 units of insulin (90 of which was basal) * Fasting BSG of 102 mg/dL * Per RN, patient is still very short of breath, now switched to CPAP - not expecting very much PO intake * Will decrease basal insulin significantly today in light of decreased PO intake and overall downtrend in BSGs 07/16 * CB is a 80 year old female admitted on 07/15/21 with COVID-19 pneumonia * BSGs elevated yesterday, likely in part due to uncovered IV dexamethasone * Dexamethasone 6 mg IV daily ordered ongoing - will cover with ~0.4 unit/kg NPH, maintain aggressive Novolog parameters * ASPEN improving (SCr: 1.93 -> 1.56 mg/dL) PLAN FOR INPATIENT GLYCEMIC CONTROL: * Basal insulin - decrease * Lantus 15 units SC x 1 this morning * Lantus 0-15 units SC HS (see EHR for details) * NPH 30 units SC daily with dexamethasone * Bolus insulin * NovoLog per scale ACHS or Q6hrs while NPO * Goal Range: Low 110 mg/dL - High 140 mg/dL * Correction Factor: 25 mg/dL/unit * Nutritional / Prandial insulin per carb ratio of 1 unit per 8 grams CHO consumed PLAN FOR DISCHARGE: * HbA1c of 7.5% is likely adequate for patient based on age and comorbidities * Reasonable to continue home regimen at discharge provided patient's PO intake is near baseline
[2021-07-17] MEDS ORDERED: PATIENT'S HEIGHT NEEDED SCH (13:30)
--- NOTE | 2021-07-17 16:12 | Hospitalist Progress Note ---
Date of Service July 17, 2021 Assessment & Plan (1) Respiratory failure with hypoxia: (2) COVID-19: Plan: Patient vaccinated fully against Covid, last dose November 2020 Plan: 1. COVID #. Acute on chronic hypoxic respiratory failuresecondary to above Patient vaccinated fully against Covid, last dose November 2020 Patient has sinus symptoms since last 10 days, also complains of cough with yellow sputum. Admitting CXR suggestive of viral pneumonia, procalcitonin negative, monitor for bacterial superinfection Not a candidate for remdesivir, continue with dexamethasone Incentive spirometer/flutter valve/proning as able/Covid parameters High flow nasal cannula alternating with BiPAP, if needing increased oxygen, consider consulting pulm Lasix as needed, BNP WNL, troponin x1 -, keep patients on drier operator helper side. Clinically minimally better We will continue with cough suppressants and will not give any Lasix given abnormal creatinine Not any better and has been requiring BiPAP with high flow to maintain saturation If the condition does not improve by tomorrow we will have to involve temporary receptionist #. Mild hyponatremia Sodium level 134, monitor daily sodium level Likely secondary to Covid versus decreased appetite versus unknown etiology Consider sending urine osmolality and serum osmolality along with TSH if persistent low sodium level Sodium level has been normalized #. MIld ASPEN on CKD Baseline 1.5-1.7; presenting creatinine 1.93 Hold nephrotoxic including torsemide and spironolactone--> KCl supplementation also held due to prior Monitor BMP daily If uptrending, consider gentle hydration Creatinine has been around 1.56-we will hold off any Lasix BUN/creatinine remains high at 73/1.45-will not give any Lasix 4. DM on insulin SSI, glycemic pharmacy ssI glycemic pharmacy DVT prophylaxis: Heparin due to ASPEN component, transition to enoxaparin once ASPEN resolves Full code Admission and Anticipated Discharge Date Admission Date: July 15, 2021 Subjective 07/16/2021 The patient was seen and examined in the emergency room in the holding area She has been complaining of nausea and moderate shortness of breath at rest Denies any chest pain and/or palpitation 07/17/2021 The patient was seen and examined in telemetry unit and in the Covid room She has not been feeling any better Has been requiring high flow oxygen through BiPAP to maintain saturation Review of Systems Review of Systems: All systems are reviewed and are unremarkable except as mentioned below Respiratory: Mild to moderate shortness of breath at rest Gastrointestinal: Nausea Neurologic: Generalized weakness Physical Exam Physical Exam: Lying in bed with moderate shortness of breath Constitutional: well developed, well nourished, + ill appearing and + obese Eyes: PERRL, conjunctivae normal, anicteric sclerae ENMT: external ear and nose normal, oropharynx normal Neck: trachea midline, no thyromegaly Respiratory: + respiratory distress (Moderate respiratory distress) and + cough Auscultation: + diminished lung sounds and + crackles (Minimal crackles at the bases) Cardiovascular: Rate/Rhythm: regular rate and regular rhythm; not tachycardic Heart Sounds: normal S1 and normal S2; no murmur Extremities: + edema (1+ edema bilaterally) Gastrointestinal (Abdomen): Inspection/Auscultation: + abdomen distended and normal bowel sounds Percussion/Palpation: abdomen soft; abdomen nontender Musculoskeletal: No acute arthritis in any joint Neurologic: Alert, awake and oriented x3 Results & Data Results & Data ([facility]) Vital Signs (Past 12 Hours) Vital Signs Temp Pulse Pulse Resp BP BP Pulse Ox 07/17/21 15:36 36.3 C L 63 18 147/65 H 95 07/17/21 15:00 64 07/17/21 14:18 66 26 H 95 07/17/21 11:15 36.4 C L 73 19 145/73 H 91 07/17/21 10:50 67 22 98 07/17/21 08:45 665 H 35 H 90 07/17/21 08:00 62 07/17/21 07:58 92 07/17/21 07:46 36.3 C L 78 18 169/70 H 87 L Laboratory Results [facility] 07/17/21 05:31 Sodium 138 Potassium 4.2 Chloride 105 Carbon Dioxide 30 BUN 73 H Creatinine 1.45 H Glucose 102 H Calcium 10.0 Liver Function 07/17/21 Range/Units 05:31 Total Bilirubin 0.7 (0.2-1) mg/dl AST 60 H (15-37) U/L ALT 26 (12-78) U/L Alkaline Phosphatase 73 (45-117) U/L Albumin 2.2 L (3.4-5.0) gm/dl Medications Administered Current Inpatient Medications Acetaminophen (Acetaminophen 500 Mg Tab) 1,000 mg PO Q6H PRN PRN Reason: Pain Stop: 08/15/21 11:41 Last Admin: 07/16/21 12:34 Dose: 1,000 mg Documented by: Amlodipine Besylate (Amlodipine Besylate 5 Mg Tab) 5 mg PO DAILY ERICA Stop: 08/15/21 08:59 Last Admin: 07/17/21 10:12 Dose: 5 mg Documented by: Aspirin (Aspirin 81 Mg Ectab) 81 mg PO DAILY ERICA Stop: 08/15/21 08:59 Last Admin: 07/17/21 10:12 Dose: 81 mg Documented by: Atorvastatin Calcium (Atorvastatin 40 Mg Tab) 80 mg PO DAILY ERICA Stop: 08/15/21 08:59 Last Admin: 07/17/21 10:13 Dose: 80 mg Documented by: Benzonatate (Benzonatate 100 Mg Capsule) 200 mg PO TID ERICA Stop: 08/14/21 20:59 Last Admin: 07/17/21 14:05 Dose: 200 mg Documented by: Dextrose (Dextrose 50% 50 Ml Syringe) 25 - 50 ml IV UD PRN; Protocol PRN Reason: Hypoglycemia Protocol Stop: 08/14/21 19:05 Gabapentin (Gabapentin 100 Mg Cap) 100 mg PO TID ERICA Stop: 08/14/21 20:59 Last Admin: 07/17/21 14:06 Dose: 100 mg Documented by: Glucagon (Glucagon For Inj 1 Mg Vial) 1 mg SQ UD PRN; Protocol PRN Reason: Hypoglycemia Protocol Stop: 08/14/21 19:05 Glucose (Glucose 10 Tabs/Tube) 4 - 8 tabs PO UD PRN; Protocol PRN Reason: Hypoglycemia Protocol Stop: 08/14/21 19:05 Glucose (Glucose 40% Gel 15 Gm Tube) 15 - 30 gm PO UD PRN; Protocol PRN Reason: Hypoglycemia Protocol Stop: 08/14/21 19:05 Guaifenesin (Guaifenesin 600 Mg Tabcr) 1,200 mg PO Q12 ERICA Stop: 08/15/21 20:59 Last Admin: 07/17/21 10:15 Dose: 1,200 mg Documented by: Heparin Sodium (Porcine) (Heparin Sod 5,000 Unit/0.5 Ml Vial) 7,500 units SQ Q8 ERICA Stop: 08/14/21 21:59 Last Admin: 07/17/21 14:08 Dose: 7,500 units Documented by: Hydralazine HCl (Hydralazine Hcl 20 Mg/Ml Vial) 5 mg IV Q6H PRN PRN Reason: Hypertension Stop: 08/16/21 03:34 Dexamethasone 6 mg/ Syringe 1.5 mls @ 1 mls/min IV DAILY [facility] Stop: 08/15/21 08:59 Last Admin: 07/17/21 10:14 Dose: 1 mls/min Documented by: Ondansetron HCl 6 mg/ Dextrose 53 mls @ 200 mls/hr IV Q6H PRN PRN Reason: Nausea And Vomiting Stop: 08/15/21 12:24 Last Infusion: 07/16/21 23:53 Dose: Infused Documented by: Insulin Aspart (Insulin Aspart 100 Units/Ml 3 Ml Pen) 0 units SC [facility] Stop: 08/14/21 20:59 Last Admin: 07/17/21 12:14 Dose: Not Given Documented by: Insulin Glargine (Insulin Glargine Solostar 100 Units/Ml 3 Ml Pen) 0 units SC PM [facility]; Protocol Stop: 07/17/21 21:01 Insulin Human NPH (Insulin Human Nph) 30 units SC DAILY [facility] Stop: 08/16/21 08:59 Last Admin: 07/17/21 10:22 Dose: 30 units Documented by: Isosorbide Dinitrate (Isosorbide Dinitrate 20 Mg Tab) 20 mg PO BID@0700,1200 [facility] Stop: 08/15/21 06:59 Last Admin: 07/17/21 14:05 Dose: 20 mg Documented by: Lorazepam (Lorazepam 1 Mg Tab) 2 mg PO HS [facility] Stop: 08/14/21 20:59 Last Admin: 07/16/21 22:00 Dose: 2 mg Documented by: Metoprolol Succinate (Metoprolol Succ 25mg Ext Rel Tab) 25 mg PO DAILY [facility] Stop: 08/15/21 08:59 Last Admin: 07/17/21 10:15 Dose: 25 mg Documented by: Miscellaneous (Carbohydrates For Hypoglycemia ) 15 - 30 gm PO UD PRN PRN Reason: Hypoglycemia Protocol Stop: 08/14/21 19:05 Miscellaneous Information (Pharmacy Glycemic Mgmt Consult) 1 ea N/A UD PRN; Protocol PRN Reason: Consult Stop: 08/14/21 19:05 Nitroglycerin (Nitroglycerin Sl 0.4 Mg/Tab Tab) 0.4 mg SL Q5M PRN PRN Reason: Chest Pain Stop: 08/14/21 19:05 Polyethylene Glycol (Polyethylene (Miralax) 17 Gm Pack) 17 gm PO DAILY ERICA Stop: 08/15/21 08:59 Last Admin: 07/17/21 10:17 Dose: 17 gm Documented by: (1) Respiratory failure with hypoxia Chronicity: acute Qualified Code(s): J96.01 - Acute respiratory failure with hypoxia
[2021-07-17] MEDS: LORazepam 1 MG TAB PO SCH (20:49)
[2021-07-18] MEDS: HEPARIN SOD 5,000 UNIT/0.5 ML VIAL SQ SCH ×3 (05:41→20:44)
[2021-07-18 08:22] LABS: Basophils # (auto) 0.01 K/uL (0-0.2); Basophils % (auto) 0.1 %; Hematocrit (blood only) 42.5 % (37-47); Hemoglobin 14.1 g/dL (12.0-16.0); Immature Granulocytes # (auto) 0.07 K/uL (0.00-0.02); Immature Granulocytes % (auto) 0.7 %; Lymphocytes # (auto) 0.34 K/uL (1.2-3.4); Lymphocytes % (auto) 3.2 %; Mean Corpuscular Hgb Conc 33.2 g/dL (32-36); Mean Corpuscular Volume 96.6 fL (80-100); Mean Platelet Volume 11.7 fL (7.4-10.4); Monocytes % (auto) 7.6 %; Neutrophils # (auto) 9.35 K/uL (1.4-6.5); Neutrophils % (auto) 88.4 %; Platelet Count 185 K/uL (130-400); RDW Coefficient of Variation 14.3 % (11.5-14.5); RDW Standard Deviation 50.4 fL (36.4-46.3); White Blood Count 10.57 K/uL (4.8-10.8)
[2021-07-18] MEDS: INSULIN ASPART 100 UNITS/ML 3 ML PEN SC SCH ×4 (08:28→21:34)
[2021-07-18 08:39] LABS: Albumin Level 2.1 gm/dl (3.4-5.0); C Reactive Protein 6.58 mg/dl (0-0.29); Calcium 9.6 mg/dl (8.5-10.1); Creatinine Clr Calc Pharmacy 36.9 ml/min; Est GFR (Non-African American) 37.9 ml/min; Potassium 4.1 mmol/L (3.5-5.1)
[2021-07-18] MEDS: ISOSORBIDE DINITRATE 20 MG TAB PO SCH ×2 (08:39→12:29)
[2021-07-18] MEDS: ASPIRIN 81 MG ECTAB PO SCH (08:39)
[2021-07-18] MEDS: amLODIPine BESYLATE 5 MG TAB PO SCH (08:39)
[2021-07-18] MEDS: ATORVASTATIN 40 MG TAB PO SCH (08:40)
[2021-07-18 08:42] LABS: Albumin Globulin Ratio 0.4 (0.9-2); Bilirubin,Total 0.9 mg/dl (0.2-1); Globulin 4.8 gm/dl (2.5-4.0); Phosphorus 3.3 mg/dl (2.5-4.9); Total Protein 6.9 gm/dl (6.4-8.2)
[2021-07-18] MEDS: BENZONATATE 100 MG CAPSULE PO SCH ×3 (08:50→20:46)
[2021-07-18] MEDS: dexAMETHasone 6 MG in SYRINGE 0 ML IV SCH (08:50)
[2021-07-18] MEDS: GABAPENTIN 100 MG CAP PO SCH ×3 (08:50→20:43)
[2021-07-18] MEDS: POLYETHYLENE (MIRALAX) 17 GM PACK PO SCH (08:51)
[2021-07-18] MEDS: guaiFENesin 600 MG TABCR PO SCH ×2 (08:51→20:43)
[2021-07-18] MEDS: METOPROLOL SUCC 25MG EXT REL TAB PO SCH (08:51)
--- NOTE | 2021-07-18 09:38 | Pharmacy Report ---
Pharmacy Glycemic Short Note 2 - Date of Service July 18, 2021 - Glycemic Short BSG Results (Last 24 hours): 07/17/21 07/17/21 07/17/21 11:55 16:49 21:19 Glucose POC Glucose 97 82 107 H 07/18/21 07/18/21 07:28 08:13 Glucose 89 POC Glucose 94 OUTPATIENT ANTIDIABETIC REGIMEN: * Lantus 43 units SC qAM, 26 units qPM * Novolog 10 units SC w/ breakfast, 18 units with lunch and dinner + SSI CF of 12 over 150 mg/dL * HbA1c: 7.5% (07/16/21) ASSESSMENT: 07/18/21 * Patient's BSGs yesterday were 689-95-06-107 mg/dL. Fasting today is 94 mg/dL. * Patient received only basal insulin yesterday (45 units with 15 units of Lantus and 30 units of NPH). * Due to concern with no PO intake and BSGs trending down, will hold basal insulin even though receiving dexamethasone. * Tighten Novolog as basal insulin held. 07/17 * BSGs trended down throughout the day yesterday, 208, 257, 166, 133, 123 mg/dL * Received 106 units of insulin (90 of which was basal) * Fasting BSG of 102 mg/dL * Per RN, patient is still very short of breath, now switched to CPAP - not expecting very much PO intake * Will decrease basal insulin significantly today in light of decreased PO intake and overall downtrend in BSGs 07/16 * CB is a 80 year old female admitted on 07/15/21 with COVID-19 pneumonia * BSGs elevated yesterday, likely in part due to uncovered IV dexamethasone * Dexamethasone 6 mg IV daily ordered ongoing - will cover with ~0.4 unit/kg NPH, maintain aggressive Novolog parameters * ASPEN improving (SCr: 1.93 -> 1.56 mg/dL) PLAN FOR INPATIENT GLYCEMIC CONTROL: * Basal insulin - hold * Bolus insulin -tighten * NovoLog per scale ACHS or Q6hrs while NPO * Goal Range: Low 110 mg/dL - High 140 mg/dL * Correction Factor: 15 mg/dL/unit * Nutritional / Prandial insulin per carb ratio of 1 unit per 5 grams CHO consumed PLAN FOR DISCHARGE: * HbA1c of 7.5% is likely adequate for patient based on age and comorbidities * Reasonable to continue home regimen at discharge provided patient's PO intake is near baseline
[2021-07-18] MEDS ORDERED: FUROSEMIDE 40 MG/4 ML VIAL IV ONE (12:02)
[2021-07-18] MEDS ORDERED: INSULIN GLARGINE SOLOSTAR 100 UNITS/ML 3 ML PEN SC ONE (13:00)
--- NOTE | 2021-07-18 15:05 | Hospitalist Progress Note ---
Date of Service July 18, 2021 Assessment & Plan (1) Respiratory failure with hypoxia: (2) COVID-19: Plan: Patient vaccinated fully against Covid, last dose November 2020 Plan: 1. COVID #. Acute on chronic hypoxic respiratory failuresecondary to above Patient vaccinated fully against Covid, last dose November 2020 Patient has sinus symptoms since last 10 days, also complains of cough with yellow sputum. Admitting CXR suggestive of viral pneumonia, procalcitonin negative, monitor for bacterial superinfection Not a candidate for remdesivir, continue with dexamethasone Incentive spirometer/flutter valve/proning as able/Covid parameters High flow nasal cannula alternating with BiPAP, if needing increased oxygen, consider consulting pulm Lasix as needed, BNP WNL, troponin x1 -, keep patients on back tender pulp drier side. Clinically not any better and he still requires BiPAP to maintain saturation We will try small dose of Lasix If the condition deteriorates will need to involve pulmonary #. Mild hyponatremia Sodium level 134, monitor daily sodium level Likely secondary to Covid versus decreased appetite versus unknown etiology Consider sending urine osmolality and serum osmolality along with TSH if persistent low sodium level Sodium level has been normalized #. MIld ASPEN on CKD Baseline 1.5-1.7; presenting creatinine 1.93 Hold nephrotoxic including torsemide and spironolactone--> KCl supplementation also held due to prior Monitor BMP daily If uptrending, consider gentle hydration Creatinine has been around 1.56-we will hold off any Lasix BUN/creatinine remains high at 73/1.45-will not give any Lasix Creatinine is slightly improved and will try small dose of Lasix to see if there is any improvement 4. DM on insulin SSI, glycemic pharmacy ssI glycemic pharmacy DVT prophylaxis: Heparin due to ASPEN component, transition to enoxaparin once ASPEN resolves Full code Admission and Anticipated Discharge Date Admission Date: July 15, 2021 Subjective 07/16/2021 The patient was seen and examined in the emergency room in the holding area She has been complaining of nausea and moderate shortness of breath at rest Denies any chest pain and/or palpitation 07/17/2021 The patient was seen and examined in telemetry unit and in the Covid room She has not been feeling any better Has been requiring high flow oxygen through BiPAP to maintain saturation 07/18/2021 The patient was seen and examined in telemetry unit and in the Covid room She has been stable on CPAP And requiring high flow oxygen to maintain saturation Review of Systems Review of Systems: All systems are reviewed and are unremarkable except as mentioned below Respiratory: Mild to moderate shortness of breath at rest Gastrointestinal: Nausea Neurologic: Generalized weakness Physical Exam Physical Exam: Lying in bed with moderate shortness of breath Constitutional: well developed, well nourished, + ill appearing and + obese Eyes: PERRL, conjunctivae normal, anicteric sclerae ENMT: external ear and nose normal, oropharynx normal Neck: trachea midline, no thyromegaly Respiratory: + respiratory distress (Moderate respiratory distress) and + cough Auscultation: + diminished lung sounds and + crackles (Minimal crackles at the bases) Cardiovascular: Rate/Rhythm: regular rate and regular rhythm; not tachycardic Heart Sounds: normal S1 and normal S2; no murmur Extremities: + edema (1+ edema bilaterally) Gastrointestinal (Abdomen): Inspection/Auscultation: + abdomen distended and normal bowel sounds Percussion/Palpation: abdomen soft; abdomen nontender Musculoskeletal: No acute arthritis in any joint Neurologic: Alert, awake and oriented. Generally very weak and lethargic Results & Data Results & Data ([facility]) Vital Signs (Past 12 Hours) Vital Signs Temp Pulse Pulse Resp BP Pulse Ox 07/18/21 11:40 68 21 96 07/18/21 11:34 36.6 C 73 24 155/63 H 89 L 07/18/21 08:00 66 07/18/21 07:34 36.2 C L 62 21 177/72 H 91 07/18/21 06:35 60 26 H 90 07/18/21 03:45 36.2 C L 64 20 164/72 H 94 Laboratory Results Short CBC 07/18/21 Range/Units 07:28 WBC 10.57 (4.8-10.8) K/uL Hgb 14.1 (12.0-16.0) g/dL Hct 42.5 (37-47) % Plt Count 185 (130-400) K/uL BMP 07/18/21 07:28 Sodium 141 Potassium 4.1 Chloride 106 Carbon Dioxide 27 BUN 61 H Creatinine 1.33 H Glucose 89 Calcium 9.6 Liver Function 07/18/21 Range/Units 07:28 Total Bilirubin 0.9 (0.2-1) mg/dl AST 60 H (15-37) U/L ALT 29 (12-78) U/L Alkaline Phosphatase 71 (45-117) U/L Albumin 2.1 L (3.4-5.0) gm/dl Medications Administered Current Inpatient Medications Acetaminophen (Acetaminophen 500 Mg Tab) 1,000 mg PO Q6H PRN PRN Reason: Pain Stop: 08/15/21 11:41 Last Admin: 07/16/21 12:34 Dose: 1,000 mg Documented by: Amlodipine Besylate (Amlodipine Besylate 5 Mg Tab) 5 mg PO DAILY ERICA Stop: 08/15/21 08:59 Last Admin: 07/18/21 08:39 Dose: 5 mg Documented by: Aspirin (Aspirin 81 Mg Ectab) 81 mg PO DAILY ERICA Stop: 08/15/21 08:59 Last Admin: 07/18/21 08:39 Dose: 81 mg Documented by: Atorvastatin Calcium (Atorvastatin 40 Mg Tab) 80 mg PO DAILY ERICA Stop: 08/15/21 08:59 Last Admin: 07/18/21 08:40 Dose: 80 mg Documented by: Benzonatate (Benzonatate 100 Mg Capsule) 200 mg PO TID ERICA Stop: 08/14/21 20:59 Last Admin: 07/18/21 13:54 Dose: 200 mg Documented by: Dextrose (Dextrose 50% 50 Ml Syringe) 25 - 50 ml IV UD PRN; Protocol PRN Reason: Hypoglycemia Protocol Stop: 08/14/21 19:05 Gabapentin (Gabapentin 100 Mg Cap) 100 mg PO TID ERICA Stop: 08/14/21 20:59 Last Admin: 07/18/21 13:54 Dose: 100 mg Documented by: Glucagon (Glucagon For Inj 1 Mg Vial) 1 mg SQ UD PRN; Protocol PRN Reason: Hypoglycemia Protocol Stop: 08/14/21 19:05 Glucose (Glucose 10 Tabs/Tube) 4 - 8 tabs PO UD PRN; Protocol PRN Reason: Hypoglycemia Protocol Stop: 08/14/21 19:05 Glucose (Glucose 40% Gel 15 Gm Tube) 15 - 30 gm PO UD PRN; Protocol PRN Reason: Hypoglycemia Protocol Stop: 08/14/21 19:05 Guaifenesin (Guaifenesin 600 Mg Tabcr) 1,200 mg PO Q12 ERICA Stop: 08/15/21 20:59 Last Admin: 07/18/21 08:51 Dose: 1,200 mg Documented by: Heparin Sodium (Porcine) (Heparin Sod 5,000 Unit/0.5 Ml Vial) 7,500 units SQ Q8 ERICA Stop: 08/14/21 21:59 Last Admin: 07/18/21 13:54 Dose: 7,500 units Documented by: Hydralazine HCl (Hydralazine Hcl 20 Mg/Ml Vial) 5 mg IV Q6H PRN PRN Reason: Hypertension Stop: 08/16/21 03:34 Dexamethasone 6 mg/ Syringe 1.5 mls @ 1 mls/min IV DAILY ERICA Stop: 08/15/21 08:59 Last Admin: 07/18/21 08:50 Dose: 1 mls/min Documented by: Ondansetron HCl 6 mg/ Dextrose 53 mls @ 200 mls/hr IV Q6H PRN PRN Reason: Nausea And Vomiting Stop: 08/15/21 12:24 Last Infusion: 07/16/21 23:53 Dose: Infused Documented by: Insulin Aspart (Insulin Aspart 100 Units/Ml 3 Ml Pen) 0 units SC ACHS ERICA Stop: 08/14/21 20:59 Last Admin: 07/18/21 12:27 Dose: Not Given Documented by: Insulin Human NPH (Insulin Human Nph) 30 units SC DAILY [facility] Stop: 08/16/21 08:59 Last Admin: 07/17/21 10:22 Dose: 30 units Documented by: Isosorbide Dinitrate (Isosorbide Dinitrate 20 Mg Tab) 20 mg PO BID@0700,1200 ERICA Stop: 08/15/21 06:59 Last Admin: 07/18/21 12:29 Dose: 20 mg Documented by: Lorazepam (Lorazepam 1 Mg Tab) 2 mg PO HS ERICA Stop: 08/14/21 20:59 Last Admin: 07/17/21 20:49 Dose: 2 mg Documented by: Metoprolol Succinate (Metoprolol Succ 25mg Ext Rel Tab) 25 mg PO DAILY ERICA Stop: 08/15/21 08:59 Last Admin: 07/18/21 08:51 Dose: 25 mg Documented by: Miscellaneous (Carbohydrates For Hypoglycemia ) 15 - 30 gm PO UD PRN PRN Reason: Hypoglycemia Protocol Stop: 08/14/21 19:05 Miscellaneous Information (Pharmacy Glycemic Mgmt Consult) 1 ea N/A UD PRN; Protocol PRN Reason: Consult Stop: 08/14/21 19:05 Nitroglycerin (Nitroglycerin Sl 0.4 Mg/Tab Tab) 0.4 mg SL Q5M PRN PRN Reason: Chest Pain Stop: 08/14/21 19:05 Polyethylene Glycol (Polyethylene (Miralax) 17 Gm Pack) 17 gm PO DAILY ERICA Stop: 08/15/21 08:59 Last Admin: 07/18/21 08:51 Dose: 17 gm Documented by: (1) Respiratory failure with hypoxia Chronicity: acute Qualified Code(s): J96.01 - Acute respiratory failure with hypoxia
[2021-07-18] MEDS: LORazepam 1 MG TAB PO SCH (20:44)
[2021-07-19] MEDS: HEPARIN SOD 5,000 UNIT/0.5 ML VIAL SQ SCH ×3 (06:00→20:49)
[2021-07-19] MEDS ORDERED: INSULIN GLARGINE SOLOSTAR 100 UNITS/ML 3 ML PEN SC SCH (09:00)
--- NOTE | 2021-07-19 09:16 | Pharmacy Report ---
Pharmacy Glycemic Short Note 2 - Date of Service July 19, 2021 - Glycemic Short BSG Results (Last 24 hours): 07/18/21 07/18/21 07/18/21 12:17 16:59 20:29 POC Glucose 121 H 175 H 144 H 07/19/21 07:39 POC Glucose 125 H OUTPATIENT ANTIDIABETIC REGIMEN: * Lantus 43 units SC qAM, 26 units qPM * Novolog 10 units SC w/ breakfast, 18 units with lunch and dinner + SSI CF of 12 over 150 mg/dL * HbA1c: 7.5% (07/16/21) ASSESSMENT: 07/19/21 * Patient's BSGs yesterday were 51-673-431-144 mg/dL. Fasting today is 125 mg/dL. * Patient received 19 units of insulin with 15 units of Lantus and 4 units of bolus. * Continue Lantus 15 units daily. * Loosen Novolog. 07/18/21 * Patient's BSGs yesterday were 415-03-34-107 mg/dL. Fasting today is 94 mg/dL. * Patient received only basal insulin yesterday (45 units with 15 units of Lantus and 30 units of NPH). * Due to concern with no PO intake and BSGs trending down, will hold basal insulin even though receiving dexamethasone. * Tighten Novolog as basal insulin held. 07/17 * BSGs trended down throughout the day yesterday, 208, 257, 166, 133, 123 mg/dL * Received 106 units of insulin (90 of which was basal) * Fasting BSG of 102 mg/dL * Per RN, patient is still very short of breath, now switched to CPAP - not expecting very much PO intake * Will decrease basal insulin significantly today in light of decreased PO intake and overall downtrend in BSGs 07/16 * CB is a 80 year old female admitted on 07/15/21 with COVID-19 pneumonia * BSGs elevated yesterday, likely in part due to uncovered IV dexamethasone * Dexamethasone 6 mg IV daily ordered ongoing - will cover with ~0.4 unit/kg NPH, maintain aggressive Novolog parameters * ASPEN improving (SCr: 1.93 -> 1.56 mg/dL) PLAN FOR INPATIENT GLYCEMIC CONTROL: * Basal insulin - Lantus 15 units daily * Bolus insulin -loosen * NovoLog per scale ACHS or Q6hrs while NPO * Goal Range: Low 110 mg/dL - High 140 mg/dL * Correction Factor: 20 mg/dL/unit * Nutritional / Prandial insulin per carb ratio of 1 unit per 6 grams CHO consumed PLAN FOR DISCHARGE: * HbA1c of 7.5% is likely adequate for patient based on age and comorbidities * Reasonable to continue home regimen at discharge provided patient's PO intake is near baseline
[2021-07-19] MEDS: INSULIN ASPART 100 UNITS/ML 3 ML PEN SC SCH ×4 (09:30→21:15)
[2021-07-19] MEDS: POLYETHYLENE (MIRALAX) 17 GM PACK PO SCH (09:31)
[2021-07-19] MEDS: amLODIPine BESYLATE 5 MG TAB PO SCH (09:35)
[2021-07-19] MEDS: ISOSORBIDE DINITRATE 20 MG TAB PO SCH ×2 (09:35→13:39)
[2021-07-19] MEDS: ASPIRIN 81 MG ECTAB PO SCH (09:35)
[2021-07-19] MEDS: GABAPENTIN 100 MG CAP PO SCH ×3 (09:36→20:49)
[2021-07-19] MEDS: BENZONATATE 100 MG CAPSULE PO SCH ×3 (09:36→20:49)
[2021-07-19] MEDS: ATORVASTATIN 40 MG TAB PO SCH (09:36)
[2021-07-19] MEDS: dexAMETHasone 6 MG in SYRINGE 0 ML IV SCH (09:36)
[2021-07-19] MEDS: guaiFENesin 600 MG TABCR PO SCH ×2 (09:37→20:49)
[2021-07-19] MEDS: METOPROLOL SUCC 25MG EXT REL TAB PO SCH (09:37)
[2021-07-19 10:14] LABS: BUN Creatinine Ratio 43.8 (10-20); Calcium 9.1 mg/dl (8.5-10.1); Creatinine Clr Calc Pharmacy 34.8 ml/min; Est GFR (African American) 40.3 ml/min; Est GFR (Non-African American) 34.7 ml/min; Potassium 4.3 mmol/L (3.5-5.1)
--- NOTE | 2021-07-19 15:40 | Hospitalist Progress Note ---
Date of Service July 19, 2021 Assessment & Plan (1) Respiratory failure with hypoxia: (2) COVID-19: Plan: Patient vaccinated fully against Covid, last dose November 2020 Plan: 1. COVID #. Acute on chronic hypoxic respiratory failuresecondary to above Patient vaccinated fully against Covid, last dose November 2020 Patient has sinus symptoms since last 10 days, also complains of cough with yellow sputum. Admitting CXR suggestive of viral pneumonia, procalcitonin negative, monitor for bacterial superinfection Not a candidate for remdesivir, continue with dexamethasone Incentive spirometer/flutter valve/proning as able/Covid parameters High flow nasal cannula alternating with BiPAP, if needing increased oxygen, consider consulting pulm Lasix as needed, BNP WNL, troponin x1 -, keep patients on curtain drier side. Clinically not any better and he still requires BiPAP to maintain saturation We will try small dose of Lasix If the condition deteriorates will need to involve pulmonary Condition a little bit better today-we will continue current management #. Mild hyponatremia Sodium level 134, monitor daily sodium level Likely secondary to Covid versus decreased appetite versus unknown etiology Consider sending urine osmolality and serum osmolality along with TSH if persistent low sodium level Sodium level has been normalized #. MIld ASPEN on CKD Baseline 1.5-1.7; presenting creatinine 1.93 Hold nephrotoxic including torsemide and spironolactone--> KCl supplementation also held due to prior Monitor BMP daily If uptrending, consider gentle hydration Creatinine has been around 1.56-we will hold off any Lasix BUN/creatinine remains high at 73/1.45-will not give any Lasix Creatinine is slightly improved and will try small dose of Lasix to see if there is any improvement Creatinine is minimally elevated at 1.43 4. DM on insulin SSI, glycemic pharmacy ssI glycemic pharmacy DVT prophylaxis: Heparin due to ASPEN component, transition to enoxaparin once ASPEN resolves Full code Admission and Anticipated Discharge Date Admission Date: July 15, 2021 Subjective 07/16/2021 The patient was seen and examined in the emergency room in the holding area She has been complaining of nausea and moderate shortness of breath at rest Denies any chest pain and/or palpitation 07/17/2021 The patient was seen and examined in telemetry unit and in the Covid room She has not been feeling any better Has been requiring high flow oxygen through BiPAP to maintain saturation 07/18/2021 The patient was seen and examined in telemetry unit and in the Covid room She has been stable on CPAP And requiring high flow oxygen to maintain saturation 07/19/2021 The patient was seen and examined in telemetry unit and in the Covid room She remained stable and requires up to 40 L of oxygen to maintain saturation Feels a little better Review of Systems Review of Systems: All systems are reviewed and are unremarkable except as mentioned below Respiratory: Mild to moderate shortness of breath at rest Gastrointestinal: Nausea Neurologic: Generalized weakness Physical Exam Physical Exam: Lying in bed with moderate shortness of breath Constitutional: well developed, well nourished, + ill appearing and + obese Eyes: PERRL, conjunctivae normal, anicteric sclerae ENMT: external ear and nose normal, oropharynx normal Neck: trachea midline, no thyromegaly Respiratory: + respiratory distress (Moderate respiratory distress) and + cough Auscultation: + diminished lung sounds and + crackles (Minimal crackles at the bases) Cardiovascular: Rate/Rhythm: regular rate and regular rhythm; not tachycardic Heart Sounds: normal S1 and normal S2; no murmur Extremities: + edema (1+ edema bilaterally) Gastrointestinal (Abdomen): Inspection/Auscultation: + abdomen distended and normal bowel sounds Percussion/Palpation: abdomen soft; abdomen nontender Musculoskeletal: No acute arthritis in any joint Neurologic: Alert, awake. Pleasantly confused. Generally weak and lethargic Results & Data Results & Data ([facility]) Vital Signs (Past 12 Hours) Vital Signs Temp Pulse Pulse Resp BP Pulse Ox 07/19/21 15:19 36.3 C L 70 20 147/57 H 89 L 07/19/21 15:13 79 26 H 93 07/19/21 11:49 36.6 C 69 20 146/61 H 99 07/19/21 11:33 63 18 93 07/19/21 11:10 65 07/19/21 08:01 36.6 C 68 20 174/64 H 96 07/19/21 06:59 62 22 92 Laboratory Results [facility] 07/19/21 09:26 Sodium 142 Potassium 4.3 Chloride 106 Carbon Dioxide 28 BUN 63 H Creatinine 1.43 H Glucose 125 H Calcium 9.1 Medications Administered Current Inpatient Medications Acetaminophen (Acetaminophen 500 Mg Tab) 1,000 mg PO Q6H PRN PRN Reason: Pain Stop: 08/15/21 11:41 Last Admin: 07/16/21 12:34 Dose: 1,000 mg Documented by: Amlodipine Besylate (Amlodipine Besylate 5 Mg Tab) 5 mg PO DAILY ERICA Stop: 08/15/21 08:59 Last Admin: 07/19/21 09:35 Dose: 5 mg Documented by: Aspirin (Aspirin 81 Mg Ectab) 81 mg PO DAILY ERICA Stop: 08/15/21 08:59 Last Admin: 07/19/21 09:35 Dose: 81 mg Documented by: Atorvastatin Calcium (Atorvastatin 40 Mg Tab) 80 mg PO DAILY ERICA Stop: 08/15/21 08:59 Last Admin: 07/19/21 09:36 Dose: 80 mg Documented by: Benzonatate (Benzonatate 100 Mg Capsule) 200 mg PO TID ERICA Stop: 08/14/21 20:59 Last Admin: 07/19/21 13:40 Dose: 200 mg Documented by: Dextrose (Dextrose 50% 50 Ml Syringe) 25 - 50 ml IV UD PRN; Protocol PRN Reason: Hypoglycemia Protocol Stop: 08/14/21 19:05 Gabapentin (Gabapentin 100 Mg Cap) 100 mg PO TID ERICA Stop: 08/14/21 20:59 Last Admin: 07/19/21 13:40 Dose: 100 mg Documented by: Glucagon (Glucagon For Inj 1 Mg Vial) 1 mg SQ UD PRN; Protocol PRN Reason: Hypoglycemia Protocol Stop: 08/14/21 19:05 Glucose (Glucose 10 Tabs/Tube) 4 - 8 tabs PO UD PRN; Protocol PRN Reason: Hypoglycemia Protocol Stop: 08/14/21 19:05 Glucose (Glucose 40% Gel 15 Gm Tube) 15 - 30 gm PO UD PRN; Protocol PRN Reason: Hypoglycemia Protocol Stop: 08/14/21 19:05 Guaifenesin (Guaifenesin 600 Mg Tabcr) 1,200 mg PO Q12 ERICA Stop: 08/15/21 20:59 Last Admin: 07/19/21 09:37 Dose: 1,200 mg Documented by: Heparin Sodium (Porcine) (Heparin Sod 5,000 Unit/0.5 Ml Vial) 7,500 units SQ Q8 ERICA Stop: 08/14/21 21:59 Last Admin: 07/19/21 13:41 Dose: 7,500 units Documented by: Hydralazine HCl (Hydralazine Hcl 20 Mg/Ml Vial) 5 mg IV Q6H PRN PRN Reason: Hypertension Stop: 08/16/21 03:34 Dexamethasone 6 mg/ Syringe 1.5 mls @ 1 mls/min IV DAILY [facility] Stop: 08/15/21 08:59 Last Admin: 07/19/21 09:36 Dose: 1 mls/min Documented by: Ondansetron HCl 6 mg/ Dextrose 53 mls @ 200 mls/hr IV Q6H PRN PRN Reason: Nausea And Vomiting Stop: 08/15/21 12:24 Last Infusion: 07/16/21 23:53 Dose: Infused Documented by: Insulin Aspart (Insulin Aspart 100 Units/Ml 3 Ml Pen) 0 units SC ACHS [facility] Stop: 08/14/21 20:59 Last Admin: 07/19/21 12:28 Dose: 7 units Documented by: Insulin Human NPH (Insulin Human Nph) 30 units SC DAILY [facility] Stop: 08/16/21 08:59 Last Admin: 07/17/21 10:22 Dose: 30 units Documented by: Isosorbide Dinitrate (Isosorbide Dinitrate 20 Mg Tab) 20 mg PO BID@0700,1200 [facility] Stop: 08/15/21 06:59 Last Admin: 07/19/21 13:39 Dose: 20 mg Documented by: Lorazepam (Lorazepam 1 Mg Tab) 2 mg PO HS [facility] Stop: 08/14/21 20:59 Last Admin: 07/18/21 20:44 Dose: 2 mg Documented by: Metoprolol Succinate (Metoprolol Succ 25mg Ext Rel Tab) 25 mg PO DAILY [facility] Stop: 08/15/21 08:59 Last Admin: 07/19/21 09:37 Dose: 25 mg Documented by: Miscellaneous (Carbohydrates For Hypoglycemia ) 15 - 30 gm PO UD PRN PRN Reason: Hypoglycemia Protocol Stop: 08/14/21 19:05 Miscellaneous Information (Pharmacy Glycemic Mgmt Consult) 1 ea N/A UD PRN; Protocol PRN Reason: Consult Stop: 08/14/21 19:05 Nitroglycerin (Nitroglycerin Sl 0.4 Mg/Tab Tab) 0.4 mg SL Q5M PRN PRN Reason: Chest Pain Stop: 08/14/21 19:05 Polyethylene Glycol (Polyethylene (Miralax) 17 Gm Pack) 17 gm PO DAILY ERICA Stop: 08/15/21 08:59 Last Admin: 07/19/21 09:31 Dose: Not Given Documented by: (1) Respiratory failure with hypoxia Chronicity: acute Qualified Code(s): J96.01 - Acute respiratory failure with hypoxia
[2021-07-19] MEDS: ACETAMINOPHEN 500 MG TAB PO PRN (20:49)
[2021-07-19] MEDS: LORazepam 1 MG TAB PO SCH (20:49)
[2021-07-19] MEDS: ondansetron HCL 6 MG in DEXTROSE 5% 50 ML IV PRN (22:30)
[2021-07-20] MEDS: HEPARIN SOD 5,000 UNIT/0.5 ML VIAL SQ SCH ×3 (06:26→22:10)
[2021-07-20] MEDS: dexAMETHasone 6 MG in SYRINGE 0 ML IV SCH ×2 (08:59→20:17)
[2021-07-20] MEDS ORDERED: INSULIN GLARGINE SOLOSTAR 100 UNITS/ML 3 ML PEN SC SCH (09:00)
[2021-07-20] MEDS: ISOSORBIDE DINITRATE 20 MG TAB PO SCH ×2 (09:00→13:07)
[2021-07-20] MEDS: BENZONATATE 100 MG CAPSULE PO SCH ×3 (09:01→20:17)
[2021-07-20] MEDS: METOPROLOL SUCC 25MG EXT REL TAB PO SCH (09:02)
[2021-07-20] MEDS: ATORVASTATIN 40 MG TAB PO SCH (09:02)
[2021-07-20] MEDS: guaiFENesin 600 MG TABCR PO SCH ×2 (09:02→20:18)
[2021-07-20] MEDS: GABAPENTIN 100 MG CAP PO SCH ×3 (09:03→20:17)
[2021-07-20] MEDS: ASPIRIN 81 MG ECTAB PO SCH (09:03)
[2021-07-20] MEDS: amLODIPine BESYLATE 5 MG TAB PO SCH (09:03)
[2021-07-20] MEDS: POLYETHYLENE (MIRALAX) 17 GM PACK PO SCH (09:04)
[2021-07-20] MEDS: INSULIN ASPART 100 UNITS/ML 3 ML PEN SC SCH ×2 (09:05→12:50)
--- NOTE | 2021-07-20 10:04 | Pharmacy Report ---
Pharmacy Glycemic Short Note 2 - Date of Service July 20, 2021 - Glycemic Short BSG Results (Last 24 hours): 07/19/21 07/19/21 07/19/21 09:26 11:26 16:26 Glucose 125 H POC Glucose 155 H 211 H 07/19/21 07/20/21 21:04 07:39 Glucose POC Glucose 181 H 223 H OUTPATIENT ANTIDIABETIC REGIMEN: * Lantus 43 units SC qAM, 26 units qPM * Novolog 10 units SC w/ breakfast, 18 units with lunch and dinner + SSI CF of 12 over 150 mg/dL * HbA1c: 7.5% (07/16/21) ASSESSMENT: 07/20/21 * Pt has received 29 units of insulin over the past 24hrs * 15 units of basal with Lantus * 14 units of bolus with NovoLog * BSGs [phone] mg/dl * Dexamethasone IV continues for covid but no NPH ordered at this time secondary to very minimal PO intake. Steroids do not cause the same profound spikes in BSGs without CHO intake * Current Lantus dosing is significantly less than outpatient dosing d/t decreased PO intake. BSGs trending upwards since last night. Will continue to titrate Lantus upwards to achieve goal range BSGs. May need to add NPH if PO intake improves. 07/19/21 * Patient's BSGs yesterday were [phone] mg/dL. Fasting today is 125 mg/dL. * Patient received 19 units of insulin with 15 units of Lantus and 4 units of bolus. * Continue Lantus 15 units daily. * Loosen Novolog. 07/18/21 * Patient's BSGs yesterday were 001-17-87-107 mg/dL. Fasting today is 94 mg/dL. * Patient received only basal insulin yesterday (45 units with 15 units of Lantus and 30 units of NPH). * Due to concern with no PO intake and BSGs trending down, will hold basal insulin even though receiving dexamethasone. * Tighten Novolog as basal insulin held. 07/17 * BSGs trended down throughout the day yesterday, 208, 257, 166, 133, 123 mg/dL * Received 106 units of insulin (90 of which was basal) * Fasting BSG of 102 mg/dL * Per RN, patient is still very short of breath, now switched to CPAP - not expecting very much PO intake * Will decrease basal insulin significantly today in light of decreased PO int crystal and overall downtrend in BSGs 07/16 * CB is a 80 year old female admitted on 07/15/21 with COVID-19 pneumonia * BSGs elevated yesterday, likely in part due to uncovered IV dexamethasone * Dexamethasone 6 mg IV daily ordered ongoing - will cover with ~0.4 unit/kg NPH, maintain aggressive Novolog parameters * ASPEN improving (SCr: 1.93 -> 1.56 mg/dL) PLAN FOR INPATIENT GLYCEMIC CONTROL: * Basal insulin - Lantus 30 units daily * Bolus insulin * NovoLog per scale ACHS or Q6hrs while NPO * Goal Range: Low 110 mg/dL - High 140 mg/dL * Correction Factor: 15 mg/dL/unit * Nutritional / Prandial insulin per carb ratio of 1 unit per 5 grams CHO consumed PLAN FOR DISCHARGE: * HbA1c of 7.5% is likely adequate for patient based on age and comorbidities * Reasonable to continue home regimen at discharge provided patient's PO intake is near baseline
--- NOTE | 2021-07-20 12:15 | XRay Report ---
XR chest 1V portable CLINICAL HISTORY: covid. Difficulty breathing COMPARISON STUDY: 07/15/2021 TECHNIQUE: 1 view of the chest FINDINGS: Single frontal view of the chest demonstrates the cardiomediastinal silhouette to be within normal li mits. Compared to the previous examination, there is now marked interstitial and alveolar opacities b ilaterally characteristic of worsening of Covid pneumonia. There is no evidence for pleural effusion. There is no evidence for vascular congestion. There is no acute osseous pathology. Cardiac pacer is again seen. IMPRESSION: Marked interval worsening of interstitial and alveolar opacities characteristic of worsen ing Covid pneumonia. ACT 112: Negative or not required by law. Electronically signed by: Ashutosh Medeiros M.D. 07/20/2021 12:13 PM
[2021-07-20 12:24] LABS: iSTAT Allen Test Pass; iSTAT Arterial Blood Gas HCO3 27 meg/L (19-24); iSTAT Arterial Blood Gas pCO2 40 mmHg (35-46); iSTAT Arterial Blood Gas pH 7.43 (7.35-7.45); iSTAT Arterial Blood Gas pO2 54 mmHg (80-95); iSTAT Carbon Dioxide 28 mmol/L (24-31); iSTAT FiO2 60 %; iSTAT Site L Radial
[2021-07-20] MEDS ORDERED: INSULIN HUMAN NPH SC ONE (12:45)
[2021-07-20] MEDS ORDERED: FUROSEMIDE 40 MG/4 ML VIAL IV ONE (13:32)
--- NOTE | 2021-07-20 13:42 | Critical Care Consultation ---
Date of Consultation July 20, 2021 Assessment & Plan (1) COVID-19: (2) Respiratory failure with hypoxia: (3) CKD (chronic kidney disease) stage 3, GFR 30-59 ml/min: (4) Hx of heart artery stent: Neurologic: Analgesics and sedation: No significant issues at present. Delirium precautions Pulmonary: Essentially with ARDS secondary to COVID-19 pneumonia. We will likely proceed with intubation and mechanical ventilation in the next few hours. We will trial her on 60 mg IV Lasix first. Continue CPAP/high flow nasal cannula therapy in the meantime. Chest x-ray with progressive COVID-19 findings and possible fluid overload. ABG with evidence of respiratory alkalosis and severe hypoxemia. Cardiovascular: She has an extensive history of coronary artery disease. Continue aspirin and atorvastatin.Diastolic heart failure is likely playing a role in her clinical picture. Continue antihypertensives for the time being. If she is intubated, will need to hold antihypertensives while on sedatives. Gastrointestinal: NPO. Renal: History of CKD stage III. Monitor urine output closely. Will place Bal catheter. Repeat CMP ordered. Infectious disease: Currently receiving 6 mg of Decadron daily due to COVID-19 infection. No clear signs of secondary infection at this time. Procalcitonin from 07/18/2021 was unremarkable. Hematologic: We will check a CBC today. Endocrine: Hyperglycemia present. We will consult ICU pharmacist. VTE prophylaxis: Continue heparin 7500 units every 8 hours CODE STATUS: Full code. Discussed with daughter over the phone. She would like to set up a video visit with her mother. Family at bedside: Discussed over the phone as noted above. Disposition: Remain in the ICU. Discussed with nursing and respiratory therapy I have personally spent 46 minutes of critical care time in the direct management of this patient. This is a life/limb threatening event. This includes time spent evaluating patient, direct bedside care, chart review, placing orders, interpretation of diagnostic studies, discussion with consultants, patient, and family members, as well as other required patient management activities. This time is exclusive of all separately billable procedures, and teaching time and separate from and in addition to any other critical care service time. Thank you for allowing us to participate in the care of this patient. History of Present Illness Reason for Consultation: COVID-19, hypoxic respiratory failure Attending Physician: Sandy Naqvi MD History of Present Illness 80-year-old female with a history of hyperparathyroidism, CKD stage III, morbid obesity, neuropathy, diastolic CHF, hypertension, CAD and lymphedema presenting to the hospital on 07/15/2021 due to increasing cough and shortness of breath. She had symptoms of COVID-19 10 days prior to admission. He had increasing shortness of breath 2 to 3 days prior to admission. She notes that she is short of breath today and she is requiring CPAP support. Oxygen saturation dropped to the 70s on nasal cannula. She does use 2 L of oxygen chronically at night. In the hospital, she has been receiving Decadron. Creatinine yesterday was 1.43. Last CRP was 07/18/2021 which is 6.58. On admission her CRP was 9.53 mg/dL. Chest x-ray today demonstrates bilateral dense interstitial and alveolar process. Allergies Allergy/AdvReac Type Severity Reaction Status Date / Time Bactrim Allergy Unknown RASH Verified 04/14/18 12:03 sulfamethoxazole Allergy Unknown RASH Verified 07/15/21 14:50 trimethoprim Allergy Unknown RASH Verified 07/15/21 14:50 codeine AdvReac Mild nausea Verified 07/15/21 14:50 Home Medications Medication Instructions Recorded Confirmed Type allopurinol 300 mg tablet 300 mg PO DAILY #0 tab 05/03/12 07/15/21 History atorvastatin 80 mg tablet (Lipitor) 80 mg PO DAILY #0 tab 08/04/15 07/15/21 History insulin aspart U-100 100 unit/mL 10 unit SUBCUT QAM #0 04/07/17 07/15/21 History (3 mL) subcutaneous pen insulin aspart U-100 100 unit/mL 18 unit SUBCUT BID #0 04/07/17 07/15/21 History (3 mL) subcutaneous pen insulin glargine 100 unit/mL 26 unit SUBCUT PM #0 04/07/17 07/15/21 History subcutaneous solution (Lantus U-100 Insulin) lorazepam 2 mg tablet 2 mg PO HS #0 04/07/17 07/15/21 History amlodipine 5 mg tablet (Norvasc) 5 mg PO DAILY #0 tab 11/27/17 07/15/21 History insulin glargine 100 unit/mL 43 unit SUBCUT QAM #0 pen 04/14/18 07/15/21 History subcutaneous solution (Lantus U-100 Insulin) nitroglycerin 0.4 mg sublingual 0.4 mg SUBLINGUAL Q5M PRN #0 tab 04/16/19 07/15/21 History tablet (Nitrostat) potassium chloride 20 mEq 40 meq PO DAILY tab 04/16/19 07/15/21 History tablet,extended release spironolactone 25 mg tablet 12.5 mg PO DAILY tab 04/16/19 07/15/21 History (Aldactone) aspirin 81 mg tablet,delayed 81 mg PO DAILY 10/12/19 07/15/21 History release (Aspir-) metoprolol succinate 25 mg 25 mg PO DAILY 10/12/19 07/15/21 History tablet,extended release 24 hr (Toprol XL) torsemide 20 mg tablet 20 mg PO BID 10/12/19 07/15/21 History gabapentin 100 mg tablet 100 mg PO TID 05/22/21 07/15/21 History isosorbide dinitrate 20 mg tablet 20 mg PO BID 05/22/21 07/15/21 History polyethylene glycol 3350 17 gram 17 g PO DAILY 05/22/21 07/15/21 History oral powder packet (Miralax) benzonatate 200 mg capsule 200 mg PO TID PRN 07/15/21 07/15/21 History dexamethasone 6 mg tablet 6 mg PO DAILY 07/15/21 07/15/21 History Patient History Medical History (Updated 07/15/21 @ 18:15 by Jim Hernandez MD) Bradycardia Cataracts, bilateral Coronary artery disease Coronary artery disease Diabetes Edema Gout Hyperparathyroidism Hypertension Kidney disease, chronic, stage IV (severe, EGFR 15-29 ml/min) Neuropathy Weakness Surgical History History of 3 sections History of total right knee replacement S/P angioplasty with stent Family History Mother Heart disease Diabetes Brother Diabetes Social History Smoking Status: Never smoker Hx Alcohol Use: No Hx Substance Use: No Preferred Language: Belarusian Communication Ability: Unable Radiation Monitor Required: No Beliefs That Will Affect Care: None marital status: / Current Living Situation: Alone Feels Safe at Home: Yes Assistive Devices: CPAP and Oxygen - Continuous Review of Systems 2 Review of Systems: All systems reviewed & are unremarkable except as noted in HPI & below Physical Exam Physical Exam: Constitutional: Appears to be in mild distress. Tachypneic. CPAPmask in place. Eyes: Pupils are equal round and reactive to light. Conjunctivae are normal. Anicteric sclera. Ears nose, mouth and throat: Limited by CPAP mask. Neck: Trachea is midline. Visual inspection is normal. Respiratory: Coarse lung sounds bilaterally. Diminished in the bases. Cardiovascular: Regular rate and rhythm. No murmurs. Trace edema in the lower extremities bilaterally. Gastrointestinal: Normal bowel sounds, soft, nontender and nondistended. No hepatosplenomegaly noted. Musculoskeletal: Patient is able to move all extremities. Skin: No rashes, warm dry and intact. Neurologic: No obvious focal neurological deficits seen. Psychiatric: Alert and oriented x3 with a euthymic affect. Results & Data Results & Data ([facility]) Vital Signs (Past 12 Hours) Vital Signs Temp Pulse Pulse Resp BP BP Pulse Ox 07/20/21 12:18 36.7 C 71 24 130/83 90 07/20/21 10:40 92 H 26 H 92 07/20/21 10:05 24 85 L 07/20/21 09:50 26 H 86 L 07/20/21 07:59 90 24 91 07/20/21 07:40 36.4 C L 68 20 164/58 H 87 L 07/20/21 07:00 62 07/20/21 06:00 60 07/20/21 04:02 36.5 C 62 22 151/66 H 93 07/20/21 03:25 60 24 92 Vital signs, labs and imaging personally reviewed. Coding Level of Care Code Critical Care 1st 30-74 mins Diagnoses COVID-19 U07.1 Respiratory failure with hypoxia J96.01 Chronicity: acute CKD (chronic kidney disease) stage 3, GFR 30-59 ml/min N18.3 Hx of heart artery stent Z95.5 Time Spent (min) 46 (1) Respiratory failure with hypoxia Chronicity: acute Qualified Code(s): J96.01 - Acute respiratory failure with hypoxia
[2021-07-20] MEDS ORDERED: ICU SEVERE HYPERGLYCEMIA PROTOCOL ONE (13:53)
[2021-07-20] MEDS ORDERED: PHARMACY GLYCEMIC MGMT CONSULT PRN (13:53)
[2021-07-20 14:40] LABS: Basophils # (auto) 0.01 K/uL (0-0.2); Basophils % (auto) 0.1 %; Hematocrit (blood only) 42.3 % (37-47); Hemoglobin 14.1 g/dL (12.0-16.0); Immature Granulocytes # (auto) 0.05 K/uL (0.00-0.02); Immature Granulocytes % (auto) 0.5 %; Lymphocytes # (auto) 0.35 K/uL (1.2-3.4); Lymphocytes % (auto) 3.6 %; Mean Corpuscular Hemoglobin 31.8 pg (25-34); Mean Corpuscular Hgb Conc 33.3 g/dL (32-36); Mean Corpuscular Volume 95.5 fL (80-100); Mean Platelet Volume 11.5 fL (7.4-10.4); Monocytes # (auto) 0.06 K/uL (0.11-0.59); Monocytes % (auto) 0.6 %; Neutrophils # (auto) 9.26 K/uL (1.4-6.5); Neutrophils % (auto) 95.2 %; Platelet Count 183 K/uL (130-400); RDW Standard Deviation 49.2 fL (36.4-46.3); Red Blood Count 4.43 M/uL (4.2-5.4); White Blood Count 9.73 K/uL (4.8-10.8)
[2021-07-20] MEDS ORDERED: STAT IV Infusion **Titration per Protocol STA ×3 (14:41→16:57)
[2021-07-20] MEDS ORDERED: INSULIN PROTOCOL GOAL RANGE ONE (14:41)
[2021-07-20 14:58] LABS: BUN Creatinine Ratio 44.3 (10-20); Calcium 9.5 mg/dl (8.5-10.1); Creatinine Clr Calc Pharmacy 33.7 ml/min; Est GFR (African American) 39.6 ml/min; Est GFR (Non-African American) 34.2 ml/min; Potassium 4.3 mmol/L (3.5-5.1)
[2021-07-20] MEDS ORDERED: NovoLIN-R BOLUS FROM BAG IV ONE (15:00)
[2021-07-20] MEDS ORDERED: INSULIN REGULAR 250 UNITS in SODIUM CHLORIDE 0.9% 247.5 ML IV SCH (15:00)
[2021-07-20 15:01] LABS: Albumin Globulin Ratio 0.4 (0.9-2); Bilirubin,Total 0.8 mg/dl (0.2-1); Globulin 4.8 gm/dl (2.5-4.0); Total Protein 6.8 gm/dl (6.4-8.2)
--- NOTE | 2021-07-20 16:17 | Hospitalist Progress Note ---
Date of Service July 20, 2021 Assessment & Plan (1) Respiratory failure with hypoxia: (2) COVID-19: Plan: Patient vaccinated fully against Covid, last dose November 2020 Plan: 1. COVID #. Acute on chronic hypoxic respiratory failuresecondary to above Patient vaccinated fully against Covid, last dose November 2020 Patient has sinus symptoms since last 10 days, also complains of cough with yellow sputum. 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 Clinically not any better and he still requires BiPAP to maintain saturation We will try small dose of Lasix Condition has been getting worse and pulmonary medicine is involved She requires BiPAP to maintain saturation Will discuss with the family members #. Mild hyponatremia Sodium level 134, monitor daily sodium level Likely secondary to Covid versus decreased appetite versus unknown etiology Consider sending urine osmolality and serum osmolality along with TSH if persistent low sodium level Sodium level has been normalized #. MIld ASPEN on CKD Baseline 1.5-1.7; presenting creatinine 1.93 Hold nephrotoxic including torsemide and spironolactone--> KCl supplementation also held due to prior Monitor BMP daily If uptrending, consider gentle hydration Creatinine has been around 1.56-we will hold off any Lasix BUN/creatinine remains high at 73/1.45-will not give any Lasix Creatinine is slightly improved and will try small dose of Lasix to see if there is any improvement Creatinine is minimally elevated at 1.43 4. DM on insulin SSI, glycemic pharmacy ssI glycemic pharmacy DVT prophylaxis: Heparin due to ASPEN component, transition to enoxaparin once ASPEN resolves Full code Admission and Anticipated Discharge Date Admission Date: July 15, 2021 Subjective 07/16/2021 The patient was seen and examined in the emergency room in the holding area She has been complaining of nausea and moderate shortness of breath at rest Denies any chest pain and/or palpitation 07/17/2021 The patient was seen and examined in telemetry unit and in the Covid room She has not been feeling any better Has been requiring high flow oxygen through BiPAP to maintain saturation 07/18/2021 The patient was seen and examined in telemetry unit and in the Covid room She has been stable on CPAP And requiring high flow oxygen to maintain saturation 07/19/2021 The patient was seen and examined in telemetry unit and in the Covid room She remained stable and requires up to 40 L of oxygen to maintain saturation Feels a little better 07/20/2021 The patient was seen and examined in telemetry unit and in the Covid room Her condition is worse and has to use BiPAPto maintain saturation Appreciate pulmonary medicine input and possible recommendation for mechanical ventilator down the line Family members are trying to do a video call with the patient before intubation Review of Systems Review of Systems: All systems are reviewed and are unremarkable except as mentioned below Respiratory: Mild to moderate shortness of breath at rest Gastrointestinal: Nausea Neurologic: Generalized weakness Physical Exam Physical Exam: Lying in bed with moderate shortness of breath Constitutional: well developed, well nourished, + ill appearing and + obese Eyes: PERRL, conjunctivae normal, anicteric sclerae ENMT: external ear and nose normal, oropharynx normal Neck: trachea midline, no thyromegaly Respiratory: + respiratory distress (Moderate respiratory distress) and + cough Auscultation: + diminished lung sounds and + crackles (Minimal crackles at the bases) Cardiovascular: Rate/Rhythm: regular rate and regular rhythm; not tachycardic Heart Sounds: normal S1 and normal S2; no murmur Extremities: + edema (1+ edema bilaterally) Gastrointestinal (Abdomen): Inspection/Auscultation: + abdomen distended and normal bowel sounds Percussion/Palpation: abdomen soft; abdomen nontender Musculoskeletal: No acute arthritis in any joint Neurologic: Alert and awake. Generally weak Results & Data Results & Data ([facility]) Vital Signs (Past 12 Hours) Vital Signs Temp Pulse Pulse Resp BP Pulse Ox 07/20/21 15:03 36.3 C L 73 22 156/62 H 93 07/20/21 14:44 82 24 93 07/20/21 12:18 36.7 C 71 24 130/83 90 07/20/21 10:40 92 H 26 H 92 07/20/21 10:05 24 85 L 07/20/21 09:50 26 H 86 L 07/20/21 07:59 90 24 91 07/20/21 07:40 36.4 C L 68 20 164/58 H 87 L 07/20/21 07:00 62 07/20/21 06:00 60 Laboratory Results Short CBC 07/20/21 Range/Units 14:31 WBC 9.73 (4.8-10.8) K/uL Hgb 14.1 (12.0-16.0) g/dL Hct 42.3 (37-47) % Plt Count 183 (130-400) K/uL BMP 07/20/21 14:31 Sodium 135 L Potassium 4.3 Chloride 102 Carbon Dioxide 27 BUN 64 H Creatinine 1.45 H Glucose 299 H Calcium 9.5 Liver Function 07/20/21 Range/Units 14:31 Total Bilirubin 0.8 (0.2-1) mg/dl AST 52 H (15-37) U/L ALT 42 (12-78) U/L Alkaline Phosphatase 99 (45-117) U/L Albumin 2.0 L (3.4-5.0) gm/dl Medications Administered Current Inpatient Medications Acetaminophen (Acetaminophen 500 Mg Tab) 1,000 mg PO Q6H PRN PRN Reason: Pain Stop: 08/15/21 11:41 Last Admin: 07/19/21 20:49 Dose: 1,000 mg Documented by: Amlodipine Besylate (Amlodipine Besylate 5 Mg Tab) 5 mg PO DAILY ERICA Stop: 08/15/21 08:59 Last Admin: 07/20/21 09:03 Dose: 5 mg Documented by: Aspirin (Aspirin 81 Mg Ectab) 81 mg PO DAILY ERICA Stop: 08/15/21 08:59 Last Admin: 07/20/21 09:03 Dose: 81 mg Documented by: Atorvastatin Calcium (Atorvastatin 40 Mg Tab) 80 mg PO DAILY ERICA Stop: 08/15/21 08:59 Last Admin: 07/20/21 09:02 Dose: 80 mg Documented by: Benzonatate (Benzonatate 100 Mg Capsule) 200 mg PO TID ERICA Stop: 08/14/21 20:59 Last Admin: 07/20/21 13:58 Dose: Not Given Documented by: Dextrose (Dextrose 50% 50 Ml Syringe) 25 - 50 ml IV UD PRN; Protocol PRN Reason: Hypoglycemia Protocol Stop: 08/14/21 19:05 Gabapentin (Gabapentin 100 Mg Cap) 100 mg PO TID ERICA Stop: 08/14/21 20:59 Last Admin: 07/20/21 13:58 Dose: Not Given Documented by: Glucagon (Glucagon For Inj 1 Mg Vial) 1 mg SQ UD PRN; Protocol PRN Reason: Hypoglycemia Protocol Stop: 08/14/21 19:05 Glucose (Glucose 10 Tabs/Tube) 4 - 8 tabs PO UD PRN; Protocol PRN Reason: Hypoglycemia Protocol Stop: 08/14/21 19:05 Glucose (Glucose 40% Gel 15 Gm Tube) 15 - 30 gm PO UD PRN; Protocol PRN Reason: Hypoglycemia Protocol Stop: 08/14/21 19:05 Guaifenesin (Guaifenesin 600 Mg Tabcr) 1,200 mg PO Q12 ERICA Stop: 08/15/21 20:59 Last Admin: 07/20/21 09:02 Dose: 1,200 mg Documented by: Heparin Sodium (Porcine) (Heparin Sod 5,000 Unit/0.5 Ml Vial) 7,500 units SQ Q8 ERICA Stop: 08/14/21 21:59 Last Admin: 07/20/21 14:12 Dose: 7,500 units Documented by: Hydralazine HCl (Hydralazine Hcl 20 Mg/Ml Vial) 5 mg IV Q6H PRN PRN Reason: Hypertension Stop: 08/16/21 03:34 Dexamethasone 6 mg/ Syringe 1.5 mls @ 1 mls/min IV DAILY ERICA Stop: 07/25/21 09:02 Last Admin: 07/20/21 08:59 Dose: 1 mls/min Documented by: Ondansetron HCl 6 mg/ Dextrose 53 mls @ 200 mls/hr IV Q6H PRN PRN Reason: Nausea And Vomiting Stop: 08/15/21 12:24 Last Infusion: 07/19/21 22:50 Dose: Infused Documented by: Insulin Human Regular 250 (units/ Sodium Chloride) 250 mls @ 6 mls/hr IV .Q24H ERICA; Protocol Stop: 08/19/21 14:59 Last Admin: 07/20/21 15:29 Dose: 6 units/hr, 6 mls/hr Documented by: Insulin Aspart (Insulin Aspart 100 Units/Ml 3 Ml Pen) 0 units SC ACHS ERICA Stop: 08/14/21 20:59 Last Admin: 07/20/21 12:50 Dose: 11 units Documented by: Insulin Glargine (Insulin Glargine Solostar 100 Units/Ml 3 Ml Pen) 30 units SC QAM ERICA Stop: 08/19/21 08:59 Last Admin: 07/20/21 09:05 Dose: 30 units Documented by: Insulin Human NPH (Insulin Human Nph) 30 units SC DAILY ERICA Stop: 08/16/21 08:59 Last Admin: 07/17/21 10:22 Dose: 30 units Documented by: Isosorbide Dinitrate (Isosorbide Dinitrate 20 Mg Tab) 20 mg PO BID@0700,1200 ERICA Stop: 08/15/21 06:59 Last Admin: 07/20/21 13:07 Dose: Not Given Documented by: Lorazepam (Lorazepam 1 Mg Tab) 2 mg PO HS ERICA Stop: 08/14/21 20:59 Last Admin: 07/19/21 20:49 Dose: 2 mg Documented by: Metoprolol Succinate (Metoprolol Succ 25mg Ext Rel Tab) 25 mg PO DAILY ERICA Stop: 08/15/21 08:59 Last Admin: 07/20/21 09:02 Dose: 25 mg Documented by: Miscellaneous (Carbohydrates For Hypoglycemia ) 15 - 30 gm PO UD PRN PRN Reason: Hypoglycemia Protocol Stop: 08/14/21 19:05 Miscellaneous Information (Pharmacy Glycemic Mgmt Consult) 1 ea N/A UD PRN; Protocol PRN Reason: Consult Stop: 08/14/21 19:05 Miscellaneous Information (Dc Iv Insulin Infusion 1 Ea Reina) 1 ea N/A Q1H ERICA Stop: 07/21/21 00:01 Nitroglycerin (Nitroglycerin Sl 0.4 Mg/Tab Tab) 0.4 mg SL Q5M PRN PRN Reason: Chest Pain Stop: 08/14/21 19:05 Polyethylene Glycol (Polyethylene (Miralax) 17 Gm Pack) 17 gm PO DAILY ERICA Stop: 08/15/21 08:59 Last Admin: 07/20/21 09:04 Dose: Not Given Documented by: (1) Respiratory failure with hypoxia Chronicity: acute Qualified Code(s): J96.01 - Acute respiratory failure with hypoxia
[2021-07-20] MEDS ORDERED: RAPID SEQUENCE INDUCTION BAG ONE (16:30)
[2021-07-20] MEDS ORDERED: PROPOFOL IV EMULSION 10 MG/ML 100 ML VIAL IV ONE (16:31)
[2021-07-20] MEDS ORDERED: PROPOFOL BOLUS FROM BAG IV PRN (16:57)
[2021-07-20] MEDS ORDERED: ROCURONIUM BROMIDE 10 MG/ML 5 ML VIAL IV STA (16:59)
[2021-07-20] MEDS ORDERED: ETOMIDATE 2 MG/ML 20 ML VIAL IV ONE ×2 (16:59→22:14)
--- NOTE | 2021-07-20 17:01 | Procedure Note ---
Procedure Note Date of Service July 20, 2021 Supervising Physician Co-Signing Physician Notes INTUBATION PROCEDURE NOTE: Dr. Tomy Galo A time-out was completed verifying correct patient, procedure, site, positioning. Patient was evaluated and required intubation for hypoxemic respiratory failure. Sedative agent used: 20 mg Paralysis agent used: 50 mg rocuronium Emergent consent was implied given patients rapidly declining clinical status and need for airway protection. I did discuss intubation with the patient's daughter over the phone and via iPad video extensively. Both daughters and patient were agreeable to intubation. Number of attempts: 1 The patient was prepared in the appropriate fashion. Sedation was achieved utilizing etomidate and rocuronium. The patient was easily ventilated using [id number] to achieve adequate oxygenation. A 7.5 Yi endotracheal tube was placed under glide scope guidance to 24 cm at the lip. The stylette was removed and balloon was inflated with 10mL of air. Appropriate Colorimetric change was appreciated. Bilateral breath sounds were heard without air sounds in the abdomen. Post Intubation Chest X-ray ordered demonstrated the tube was at the ashlee. We will pull the ET tube back 2.5 cm. Patient tolerated the procedure well and there were no immediate complications. Coding CPT Codes Resuscitation - Resuscitation: 69408 Endotracheal Intubation, emergency ([id number]) [facility] [place] Procedure Codes (Charges) Resuscitation Resuscitation: 17047 Endotracheal Intubation, emergency
[2021-07-20] MEDS: fentaNYL DRIP 1,250 MCG/250 ML BAG IV SCH (17:32)
[2021-07-20] MEDS: ARTIFICIAL TEARS OP OINT 3.5 GM TUBE OP SCH ×2 (17:32→20:17)
[2021-07-20] MEDS: propofoL 1,000 MG/100 ML VIAL IV SCH ×2 (17:33→22:09)
--- NOTE | 2021-07-20 18:33 | XRay Report ---
SINGLE VIEW CHEST CLINICAL HISTORY: Respiratory failure. Intubation. Covid pneumonia. FINDINGS: 4 AP, portable, supine chest radiographs are compared to study performed earlier the same d ay 07/20/2021. An endotracheal tube has been placed. The tip projects over the ashlee. An enteric tub e has been placed. The tip projects below the diaphragm over the mid to distal stomach. A right inter nal jugular central venous catheter has been placed. The tip of the catheter projects over the right atrium. A 2-lead cardiac pacemaker is unchanged in position. The heart is enlarged noting atheroscler otic calcification of the thoracic aorta. The mitral annulus is densely calcified. Extensive multifoc al airspace consolidation is similar to previous. No large pleural effusion or pneumothorax is seen. The skeletal structures are osteopenic. The bony thorax is grossly intact. Spondylotic change is seen throughout the thoracolumbar spine. IMPRESSION: 1. An endotracheal tube has been placed. The tip of the catheter projects over the ashlee and this sh ould be pulled back. 2. A right internal jugular central venous catheter and an enteric tube have also been placed as abov e. 3. Cardiomegaly. 4. Multifocal airspace consolidation is unchanged from earlier today and consistent with the reported history of viral pneumonia. Radiographic follow-up to resolution is recommended. 5. No pneumothorax is seen post procedure. ACT 112: Negative or not required by law. Electronically signed by: William Blair M.D. 07/20/2021 6:31 PM
--- NOTE | 2021-07-20 18:44 | Procedure Note ---
Procedure Note Date of Service July 20, 2021 Note Right INTERNAL JUGULAR CENTRAL LINE PROCEDURE NOTE: Procedure: Internal Jugular Central Line Placement Indication: Central Drug Administration, Poor Venous Access, Multiple Lab Draws Necessary, etc. Anesthesia: Continuous propofol and fentanyl were infusing at the time of the procedure. 8 mL and lidocaine 1% was used. Consent was signed and placed on the chart prior to procedure. Indication, risks, and benefits were explained at length. A time-out was completed verifying correct patient, procedure, site, positioning, and implants(s) or special equipment if applicable. Patients right neck was cleansed and draped in the typical sterile fashion using Chloraprep. The Internal Jugular Vein and Carotid Artery were identified using ultrasound. The superficial tissue was anesthetized using 8 mL of 1% lidocaine without epinephrine under direct visualization with the ultrasound. After adequate anesthetization was achieved, the Internal Jugular vein was cannulated under direct ultrasound guidance using an introducer needle on a syringe. Good venous blood return was maintained prior to removal of syringe from introducer needle. Using Seldinger Technique, a guide wire was advanced through the introducer ne edle without resistance. The introducer needle was removed and ultrasound images were obtained of the guide wire within the Internal Jugular Vein and saved to the patients medical record. A small incision was made in penetrating fashion at the guide wire insertion site utilizing an 11 blade scalpel. The dilator was advanced to the vessel without resistance. The dilator was exchanged for the triple lumen catheter which was advanced into the vessel without resistance. The guide wire was removed intact from the catheter without issue. Claves were placed on each catheter tip with confirmation of good blood flow from each lumen. Each port was easily flushed with sterile saline. The catheter was placed at 15 cm and sut[address] in place. BioPatch was applied to the catheter and a sterile Tegaderm dressing was applied over the catheter with careful attention to sterility. Patient tolerated procedure well. No immediate complications were met. Post procedure x-ray was completed, placement was appropriate and no pneumothorax was noted. Coding CPT Codes Tubes, Drains, and Vasc Access - Tubes, Drains, and Vasc Access: [id number] Place ca theter in vein superior or inferior vena cava ([id number]) Tubes, Drains, and Vasc Access - Tubes, Drains, and Vasc Access: [id number] Ultrasound Guidance For Vascular ([id number]) [facility] Procedure Codes (Charges) Tubes, Drains, and Vasc Access Procedure 1: Tubes, Drains, and Vasc Access: [id number] Place catheter in vein superior or inferior vena cava Procedure 2: Tubes, Drains, and Vasc Access: [id number] Ultrasound Guidance For Vascular
--- NOTE | 2021-07-20 18:45 | Procedure Note ---
Procedure Note Date of Service July 20, 2021 Note ARTERIAL LINE PROCEDURE NOTE: Procedure: Arterial Line Placement Indication: Monitoring on Pressors Anesthesia: Continuous propofol and fentanyl were infusing at the time of the procedure Consent was signed and placed on the chart prior to procedure. Indication, risks, and benefits were explained at length. A time-out was completed verifying correct patient, procedure, site, positioning, and implant(s) or special equipment if applicable. Patients right wrist was prepped and draped in the usual sterile fashion. Ultrasound guidance was used to aid needle placement. A 20g Arrow arterial line was introduced into the right radial artery. Catheter was threaded, and the needle was removed with appropriate blood return. Good waveform was observed. The patient tolerated the procedure well. Blood Loss: Minimal Complications: None Coding CPT Codes Tubes, Drains, and Vasc Access - Tubes, Drains, and Vasc Access: [id number] Insertion Catheter, Artery ([id number]) Tubes, Drains, and Vasc Access - Tubes, Drains, and Vasc Access: [id number] Ultrasound Guidance For Vascular ([id number]) [facility] Procedure Codes (Charges) Tubes, Drains, and Vasc Access Procedure 1: Tubes, Drains, and Vasc Access: [id number] Insertion Catheter, Artery Procedure 2: Tubes, Drains, and Vasc Access: [id number] Ultrasound Guidance For Vascular
[2021-07-20] MEDS ORDERED: CEFEPIME 1,000 MG in SYRINGE 0 ML IV SCH (19:00)
[2021-07-20 19:42] LABS: iSTAT Arterial Blood Gas HCO3 30 meg/L (19-24); iSTAT Arterial Blood Gas pCO2 55 mmHg (35-46); iSTAT Arterial Blood Gas pH 7.34 (7.35-7.45); iSTAT Arterial Blood Gas pO2 125 mmHg (80-95); iSTAT Carbon Dioxide 31 mmol/L (24-31); iSTAT FiO2 60 %; iSTAT Site Art Line
[2021-07-20] MEDS ORDERED: DC IV INSULIN INFUSION 1 EA DEVI SCH (20:00)
[2021-07-20] MEDS: CEFEPIME 2,000 MG in SYRINGE 0 ML IV SCH (20:17)
[2021-07-20] MEDS: LORazepam 1 MG TAB PO SCH (20:18)
[2021-07-20] MEDS ORDERED: INSULIN ASPART 100 UNITS/ML 3 ML PEN SC ONE (22:00)
[2021-07-20] MEDS ORDERED: ROCURONIUM BROMIDE 10 MG/ML 5 ML VIAL IV ONE (22:14)
[2021-07-20] MEDS ORDERED: fentaNYL citrate 100 MCG/2 ML VIAL IV ONE (22:14)
[2021-07-20 23:28] LABS: Appearance Urine Cloudy (Clear); Bacteria Urine Automated Negative (Negative); Bilirubin Urine Negative (Negative); Blood Urine Negative (Negative); Color Urine Dark Yellow; Epithelial Cell Urine Auto >30 /lpf (0-5); Glucose Urine UA Negative (Negative); Ketones Urine Negative (Negative); Leukocyte Esterase Urine Trace (Negative); Nitrite Urine Negative (Negative); Protein Urine Trace (Negative); Specific Gravity Urine 1.018 (1.000-1.030); Urobilinogen Urine Negative (Negative)
[2021-07-21] MEDS ORDERED: FUROSEMIDE 40 MG/4 ML VIAL IV ONE
[2021-07-21] MEDS: ARTIFICIAL TEARS OP OINT 3.5 GM TUBE OP SCH ×6 (00:09→20:05)
[2021-07-21] MEDS: fentaNYL DRIP 1,250 MCG/250 ML BAG IV SCH ×4 (03:09→23:17)
[2021-07-21 05:25] LABS: iSTAT Arterial Blood Gas HCO3 28 meg/L (19-24); iSTAT Arterial Blood Gas pCO2 52 mmHg (35-46); iSTAT Arterial Blood Gas pH 7.34 (7.35-7.45); iSTAT Arterial Blood Gas pO2 73 mmHg (80-95); iSTAT Carbon Dioxide 30 mmol/L (24-31); iSTAT FiO2 30 %; iSTAT Site Art Line
[2021-07-21] MEDS: propofoL 1,000 MG/100 ML VIAL IV SCH ×3 (06:10→23:17)
[2021-07-21] MEDS: HEPARIN SOD 5,000 UNIT/0.5 ML VIAL SQ SCH ×3 (06:11→23:17)
[2021-07-21 06:45] LABS: Hematocrit (blood only) 38.2 % (37-47); Hemoglobin 12.8 g/dL (12.0-16.0); Immature Granulocytes # (auto) 0.03 K/uL (0.00-0.02); Immature Granulocytes % (auto) 0.4 %; Lymphocytes # (auto) 0.34 K/uL (1.2-3.4); Lymphocytes % (auto) 5.1 %; Mean Corpuscular Hgb Conc 33.5 g/dL (32-36); Mean Corpuscular Volume 95.5 fL (80-100); Monocytes # (auto) 0.13 K/uL (0.11-0.59); Monocytes % (auto) 1.9 %; Neutrophils # (auto) 6.17 K/uL (1.4-6.5); Neutrophils % (auto) 92.6 %; Platelet Count 181 K/uL (130-400); RDW Coefficient of Variation 13.9 % (11.5-14.5); RDW Standard Deviation 48.9 fL (36.4-46.3); White Blood Count 6.67 K/uL (4.8-10.8)
[2021-07-21] MEDS: CISATRACURIUM BESYLATE 40 MG in 0.9 % SODIUM CHLORIDE 80 ML IV SCH ×3 (07:04→13:31)
[2021-07-21 07:10] LABS: BUN Creatinine Ratio 51.4 (10-20); Calcium 9.3 mg/dl (8.5-10.1); Creatinine Clr Calc Pharmacy 34.7 ml/min; Est GFR (Non-African American) 35.3 ml/min; Magnesium 3.1 mg/dl (1.8-2.4); Phosphorus 4.2 mg/dl (2.5-4.9); Potassium 4.4 mmol/L (3.5-5.1)
[2021-07-21] MEDS: BENZONATATE 100 MG CAPSULE PO SCH (07:42)
[2021-07-21] MEDS: guaiFENesin 600 MG TABCR PO SCH (07:43)
[2021-07-21] MEDS: METOPROLOL SUCC 25MG EXT REL TAB PO SCH (07:43)
[2021-07-21] MEDS: GABAPENTIN 100 MG CAP PO SCH (07:44)
[2021-07-21] MEDS: ASPIRIN 81 MG ECTAB PO SCH (07:44)
[2021-07-21] MEDS ORDERED: INSULIN HUMAN NPH SC SCH (09:00)
[2021-07-21] MEDS: CEFEPIME 2,000 MG in SYRINGE 0 ML IV SCH ×2 (09:10→20:01)
[2021-07-21] MEDS: INSULIN GLARGINE SOLOSTAR 100 UNITS/ML 3 ML PEN SC SCH (09:10)
[2021-07-21] MEDS: dexAMETHasone 6 MG in SYRINGE 0 ML IV SCH ×2 (09:10→20:05)
[2021-07-21] MEDS: INSULIN ASPART 100 UNITS/ML 3 ML PEN SC SCH ×5 (09:11→20:07)
--- NOTE | 2021-07-21 09:11 | XRay Report ---
XR chest 1V portable CLINICAL HISTORY: Follow-up interstitial and alveolar opacities. COMPARISON STUDY: 07/20/2021 TECHNIQUE: 1 view of the chest FINDINGS: Single frontal view of the chest demonstrates the heart to again be enlarged with permanent cardiac p acer in place. There has been mild retraction of the endotracheal tube. Right jugular catheter is unc hanged. Compared to the previous examination, diffuse interstitial and alveolar opacities are again s een bilaterally and unchanged. There is no evidence for pleural effusion. There is mild central vascu lar congestion as well. There is no acute osseous pathology. IMPRESSION: Diffuse interstitial and alveolar opacities are again seen bilaterally and essentially un changed. Mild central vascular congestion is also present. ACT 112: Negative or not required by law. Electronically signed by: Ashutosh Medeiros M.D. 07/21/2021 9:10 AM
[2021-07-21] MEDS: POLYETHYLENE (MIRALAX) 17 GM PACK PO SCH (10:01)
[2021-07-21] MEDS: amLODIPine BESYLATE 5 MG TAB PO SCH (10:01)
[2021-07-21] MEDS: ATORVASTATIN 40 MG TAB PO SCH (10:01)
[2021-07-21] MEDS: ISOSORBIDE DINITRATE 20 MG TAB PO SCH ×2 (10:01→14:03)
[2021-07-21] MEDS: FAMOTIDINE 20 MG in SYRINGE 3 ML IV SCH (11:11)
[2021-07-21] MEDS ORDERED: PEPTAMEN INTENSE VHP 1.0 CAL 1,000 ML BAG OG SCH (11:15)
[2021-07-21] MEDS: TUBE FEEDING WATER FLUSH OG SCH ×3 (13:30→20:04)
[2021-07-21] MEDS ORDERED: GABAPENTIN 250 MG/5 ML 470 ML BTL PO SCH (14:00)
[2021-07-21] MEDS: ASPIRIN 81 MG CHEW PO SCH (14:02)
[2021-07-21] MEDS: GABAPENTIN 250 MG/5 ML 470 ML BTL PO SCH ×2 (14:03→20:05)
[2021-07-21] MEDS: INSULIN HUMAN NPH SC SCH (20:07)
--- NOTE | 2021-07-21 20:45 | Critical Care Progress Note ---
Date of Service July 21, 2021 Assessment & Plan (1) COVID-19: (2) Respiratory failure with hypoxia: (3) CKD (chronic kidney disease) stage 3, GFR 30-59 ml/min: (4) Hx of heart artery stent: Plan: Neurologic: Continue propofol and fentanyl and aim for RASS goal -2. Daily sedation vacation. Pulmonary: Essentially with ARDS secondary to COVID-19 pneumonia. Continue lung protective ventilation strategy. Moderate ARDS. Cardiovascular: She has an extensive history of coronary artery disease. Continue aspirin and atorvastatin. Diastolic heart failure is likely playing a role in her clinical picture. Hold antihypertensives while intubated. Will get an updated echo to evaluate noncardiogenic versus cardiogenic edema Gastrointestinal: NPO. Continue tube feeds. Continue GI prophylaxis with Pepcid. Renal: History of CKD stage III. Creatinine stable. Electrolytes reasonable. Infectious disease: Currently receiving 6 mg of Decadron daily due to COVID-19 infection. Pro-Obdulio negative. Will discontinue empiric antibiotics. Hematologic: No issues. Endocrine: Hyperglycemia management per ICU pharmacist. VTE prophylaxis: Continue heparin 7500 units every 8 hours CODE STATUS: Full code. Disposition: Remain in the ICU. Discussed with nursing and respiratory therapy I have personally spent 40 minutes of critical care time in the direct management of this patient. This is a life/limb threatening event. This includes time spent evaluating patient, direct bedside care, chart review, placing orders, interpretation of diagnostic studies, discussion with consultants, patient, and family members, as well as other required patient management activities. This time is exclusive of all separately billable procedures, and teaching time and separate from and in addition to any other critical care service time. Thank you for allowing us to participate in the care of this patient. Admission and Anticipated Discharge Date Admission Date: July 15, 2021 Subjective Patient remains intubated and sedated. No overnight events. Review of Systems Review of Systems: Unobtainable due to endotracheal tube Physical Exam Physical Exam: Constitutional: Intubated and sedated. No distress. Eyes: Pupils are equal round and reactive to light. Conjunctivae are normal. Anicteric sclera. Ears nose, mouth and throat: Limited by CPAP mask. Neck: Trachea is midline. Visual inspection is normal. Respiratory: Coarse lung sounds bilaterally. Diminished in the bases. Cardiovascular: Regular rate and rhythm. No murmurs. Trace edema in the lower extremities bilaterally. Gastrointestinal: Normal bowel sounds, soft, nontender and nondistended. No hepatosplenomegaly noted. Musculoskeletal: Patient is able to move all extremities. Skin: No rashes, warm dry and intact. Neurologic: No focal deficits. Intubated, sedated. Results & Data Results & Data ([facility]) Vital Signs (Past 12 Hours) Vital Signs Temp Pulse Resp BP Pulse Ox 07/21/21 20:00 60 137/51 L 07/21/21 18:00 37.2 C 22 90 07/21/21 17:53 22 07/21/21 17:30 62 22 85 L 07/21/21 17:00 61 23 87 L 07/21/21 16:30 37 C 60 22 90 07/21/21 16:00 60 22 126/78 91 07/21/21 15:30 60 22 92 07/21/21 15:00 60 22 91 07/21/21 14:30 60 22 91 07/21/21 14:20 62 22 92 07/21/21 14:00 60 22 92 07/21/21 13:30 60 22 90 07/21/21 13:00 60 22 89 L 07/21/21 12:30 67 22 89 L 07/21/21 12:00 60 22 128/72 90 07/21/21 11:39 60 22 90 07/21/21 11:30 60 22 92 07/21/21 11:00 60 22 92 07/21/21 10:30 62 22 91 07/21/21 10:00 60 22 93 07/21/21 09:30 60 22 93 07/21/21 09:00 62 22 93 Vital signs,, imaging and labs stable Coding Level of Care Code Critical Care 1st 30-74 mins Diagnoses COVID-19 U07.1 Respiratory failure with hypoxia J96.01 Chronicity: acute CKD (chronic kidney disease) stage 3, GFR 30-59 ml/min N18.3 Hx of heart artery stent Z95.5 Time Spent (min) 40 (1) Respiratory failure with hypoxia Chronicity: acute Qualified Code(s): J96.01 - Acute respiratory failure with hypoxia
--- NOTE | 2021-07-21 21:19 | Hospitalist Progress Note ---
Date of Service July 21, 2021 Assessment & Plan (1) Respiratory failure with hypoxia: (2) COVID-19: Plan: Patient vaccinated fully against Covid, last dose November 2020 Plan: 1. COVID #. Acute on chronic hypoxic respiratory failure ARDS secondary to COVID-19 Patient vaccinated fully against Covid, last dose November 2020 Patient has sinus symptoms since last 10 days, also complains of cough with yellow sputum. Admitting CXR suggestive of viral pneumonia, procalcitonin negative, monitor for bacterial superinfection Not a candidate for remdesivir, continue with dexamethasone Sedated with propofol on mechanical ventilation support (vent management as per coder) Continue Incentive spirometer/flutter valve #. Mild hyponatremia Sodium level 137, monitor daily sodium level Likely secondary to Covid versus decreased appetite versus unknown etiology Consider sending urine osmolality and serum osmolality along with TSH if persistent low sodium level Sodium level has been normalized #. MIld ASPEN on CKD Baseline 1.5-1.7; presenting creatinine 1.93 Hold nephrotoxic including torsemide and spironolactone--> KCl supplementation also held due to prior Monitor BMP daily creatinine stable at 1.4 today 4. DM on insulin SSI, glycemic pharmacy ssI glycemic pharmacy DVT prophylaxis: Heparin due to ASPEN component, transition to enoxaparin once ASPEN resolves Full code Admission and Anticipated Discharge Date Admission Date: July 15, 2021 Subjective Patient was seen and examined for follow-up of COVID-19 Sedated and intubated on mechanical vent support Review of Systems Review of Systems: All systems reviewed & are unremarkable except as noted in Subjective Physical Exam Physical Exam: General- mechanical vent support Head- atraumatic Eyes- PERRL, EOMI, ENT-intubated Neck- supple, no JVD Lungs-diminished breath sounds Heart- regular rhythm; no murmur Abdomen- normal bowel sounds, soft, nontender Extremities- no calf tenderness Neuro-sedated Results & Data Results & Data ([facility]) Vital Signs (Past 12 Hours) Vital Signs Temp Pulse Resp BP Pulse Ox 07/21/21 20:39 60 22 94 07/21/21 20:30 60 22 94 07/21/21 20:00 60 22 137/51 L 93 07/21/21 19:00 60 22 93 07/21/21 18:00 37.2 C 22 90 07/21/21 17:53 22 07/21/21 17:30 62 22 85 L 07/21/21 17:00 61 23 87 L 07/21/21 16:30 37 C 60 22 90 07/21/21 16:00 60 22 126/78 91 07/21/21 15:30 60 22 92 07/21/21 15:00 60 22 91 07/21/21 14:30 60 22 91 07/21/21 14:20 62 22 92 07/21/21 14:00 60 22 92 07/21/21 13:30 60 22 90 07/21/21 13:00 60 22 89 L 07/21/21 12:30 67 22 89 L 07/21/21 12:00 60 22 128/72 90 07/21/21 11:39 60 22 90 07/21/21 11:30 60 22 92 07/21/21 11:00 60 22 92 07/21/21 10:30 62 22 91 07/21/21 10:00 60 22 93 07/21/21 09:30 60 22 93 (1) Respiratory failure with hypoxia Chronicity: acute Qualified Code(s): J96.01 - Acute respiratory failure with hypoxia
[2021-07-22] MEDS: TUBE FEEDING WATER FLUSH OG SCH ×6 (00:27→21:20)
[2021-07-22] MEDS: ARTIFICIAL TEARS OP OINT 3.5 GM TUBE OP SCH ×7 (00:27→23:57)
[2021-07-22] MEDS: INSULIN ASPART 100 UNITS/ML 3 ML PEN SC SCH ×7 (00:27→23:59)
[2021-07-22 05:22] LABS: iSTAT Art Bld Gas pCO2 Correct 46 mmHg (35-46); iSTAT Art Bld Gas pH Corrected 7.405 (7.35-7.45); iSTAT Arterial Blood Gas HCO3 29 meg/L (19-24); iSTAT Arterial Blood Gas pCO2 46 mmHg (35-46); iSTAT Arterial Blood Gas pH 7.41 (7.35-7.45); iSTAT Arterial Blood Gas pO2 79 mmHg (80-95); iSTAT Arterial Blood Gas pO2 C 79; iSTAT Carbon Dioxide 30 mmol/L (24-31); iSTAT FiO2 50 %; iSTAT Hematocrit 37 % (37-47); iSTAT Hemoglobin 12.6 g/dl (12.0-16.0); iSTAT Potassium 4.1 mmol/L (3.3-5.0); iSTAT Site Art Line; iSTAT Sodium 140 mmol/L (135-144)
[2021-07-22] MEDS: HEPARIN SOD 5,000 UNIT/0.5 ML VIAL SQ SCH ×3 (06:40→21:22)
[2021-07-22 06:50] LABS: Hematocrit (blood only) 37.2 % (37-47); Hemoglobin 12.6 g/dL (12.0-16.0); Immature Granulocytes # (auto) 0.05 K/uL (0.00-0.02); Immature Granulocytes % (auto) 0.6 %; Lymphocytes # (auto) 0.57 K/uL (1.2-3.4); Lymphocytes % (auto) 6.6 %; Mean Corpuscular Hemoglobin 31.9 pg (25-34); Mean Corpuscular Hgb Conc 33.9 g/dL (32-36); Mean Corpuscular Volume 94.2 fL (80-100); Mean Platelet Volume 11.8 fL (7.4-10.4); Monocytes # (auto) 0.03 K/uL (0.11-0.59); Monocytes % (auto) 0.3 %; Neutrophils # (auto) 7.97 K/uL (1.4-6.5); Neutrophils % (auto) 92.5 %; Platelet Count 164 K/uL (130-400); RDW Coefficient of Variation 13.8 % (11.5-14.5); RDW Standard Deviation 47.7 fL (36.4-46.3); Red Blood Count 3.95 M/uL (4.2-5.4); White Blood Count 8.62 K/uL (4.8-10.8)
[2021-07-22] MEDS: CISATRACURIUM BESYLATE 40 MG in 0.9 % SODIUM CHLORIDE 80 ML IV SCH ×2 (06:50→21:20)
[2021-07-22] MEDS: propofoL 1,000 MG/100 ML VIAL IV SCH ×4 (07:27→23:58)
[2021-07-22] MEDS: fentaNYL DRIP 1,250 MCG/250 ML BAG IV SCH ×2 (07:27→16:15)
--- NOTE | 2021-07-22 07:27 | Pharmacy Report ---
Pharmacy Glycemic Short Note 2 - Date of Service July 22, 2021 - Glycemic Short BSG Results (Last 24 hours): 07/21/21 07/21/21 07/21/21 08:17 12:01 16:41 POC Glucose 205 H 213 H 187 H 07/21/21 07/22/21 07/22/21 19:49 00:26 03:46 POC Glucose 174 H 146 H 118 H OUTPATIENT ANTIDIABETIC REGIMEN: * Lantus 43 units Q AM + 26 units Q PM * Novolog 10 units w/ breakfast + 18 units w/ lunch + 18 units w/ dinner * A1c = 7.5% 07/16/21 ASSESSMENT: 07/21 * Type 2 diabetic admitted for COVID19 viral pna, resp failure, ARDS. * Patient is now intubated, sedated, paralyzed, receiving dexamethasone 6mg IV B ID, and has orders to begin continuous tube feeds * Patient became hyperglycemia yesterdays due to multiple stressors and did receive IV insulin drip for a short period of time. I would not doubt that she may require the drip again in the near future given current stressors and along w/ the initiation of continuous tube feeds with high dose steroid. * Will begin a basal/bolus regimen. NPH will be utilized to address steroid induced hyperglycemia following each dose of dexamethasone. Will utilize a relatively low dose of Lantus on top of this due to out-pt insulin requirements of >100units/day when no receiving steroid therapy. Novolog CF/CR will be based upon outpt regimen and "severe" stress level. PLAN FOR INPATIENT GLYCEMIC CONTROL: * Basal insulin * Lantus 15 units SQ QAM * NPH 25 units SQ with each dose of dexamethasone 6mg IV * Bolus insulin * NovoLog per scale Q 4 hrs * Goal Range: Low 110 mg/dL - High 140 mg/dL * Correction Factor: 9 mg/dL/unit * Nutritional / Prandial insulin per carb ratio of 1 unit per 3 grams CHO consumed PLAN FOR DISCHARGE: * to be determined PLAN FOR DISCHARGE: * HbA1c of 7.5% is likely adequate for patient based on age and comorbidities * Reasonable to continue home regimen at discharge provided patient's PO intake is near baseline
[2021-07-22 07:36] LABS: BUN Creatinine Ratio 66.4 (10-20); Calcium 9.3 mg/dl (8.5-10.1); Creatinine Clr Calc Pharmacy 41.8 ml/min; Est GFR (African American) 51.3 ml/min; Est GFR (Non-African American) 44.3 ml/min; Magnesium 3.2 mg/dl (1.8-2.4); Phosphorus 3.8 mg/dl (2.5-4.9); Potassium 4.1 mmol/L (3.5-5.1)
[2021-07-22] MEDS: ASPIRIN 81 MG CHEW PO SCH (07:55)
[2021-07-22] MEDS: ATORVASTATIN 40 MG TAB PO SCH (07:55)
[2021-07-22] MEDS: MULTI VIT W/MINERALS LIQUID 15 ML UDP NG SCH (07:56)
[2021-07-22] MEDS: INSULIN GLARGINE SOLOSTAR 100 UNITS/ML 3 ML PEN SC SCH (07:56)
[2021-07-22] MEDS: INSULIN HUMAN NPH SC SCH ×2 (07:56→21:22)
[2021-07-22] MEDS: POLYETHYLENE (MIRALAX) 17 GM PACK PO SCH (07:57)
--- NOTE | 2021-07-22 08:07 | XRay Report ---
XR chest 1V portable HISTORY: Respiratory failure. Follow-up. COMPARISON: Chest 07/21/2021. FINDINGS: No change in the bilateral airspace opacities. The endotracheal tube terminates 1.4 cm and the ashlee. Nasogastric tube terminates below the diaphragm. Right jugular central venous catheter te rminates at the distal SVC. No pneumothorax. Trace right pleural effusion, unchanged. The heart remai ns mildly enlarged. Left-sided pacemaker again noted. IMPRESSION: 1. Satisfactory support line placement. 2. No change in the bilateral airspace opacities. ACT 112: Negative or not required by law. Electronically signed by: Stevo Alvarez M.D. 07/22/2021 8:06 AM
[2021-07-22] MEDS: FAMOTIDINE 20 MG in SYRINGE 3 ML IV SCH (08:14)
[2021-07-22] MEDS: GABAPENTIN 250 MG/5 ML 470 ML BTL PO SCH ×3 (08:14→21:20)
[2021-07-22] MEDS: dexAMETHasone 6 MG in SYRINGE 0 ML IV SCH ×2 (08:14→21:21)
--- NOTE | 2021-07-22 17:09 | Critical Care Progress Note ---
Date of Service July 22, 2021 Assessment & Plan (1) COVID-19: (2) Respiratory failure with hypoxia: (3) CKD (chronic kidney disease) stage 3, GFR 30-59 ml/min: (4) Hx of heart artery stent: Plan: Neurologic: Continue propofol and fentanyl and aim for RASS goal -2. Daily sedation vacation. Pulmonary: Essentially with ARDS secondary to COVID-19 pneumonia. Continue lung protective ventilation strategy. Moderate ARDS. Will attempt spontaneous breathing trial tomorrow if vent parameters remain minimal. Cardiovascular: She has an extensive history of coronary artery disease. Continue aspirin and atorvastatin. Diastolic heart failure is likely playing a role in her clinical picture. Hold antihypertensives while intubated. Echo with LVEF of 55 to 60%. Mild aortic regurgitation. Severe mitral annular calcification. Moderate mitral regurgitation. Gastrointestinal: NPO. Continue tube feeds. Continue GI prophylaxis with Pepcid. Renal: History of CKD stage III. Creatinine stable. Electrolytes reasonable. Negative roughly 4 L since hospital admission. Infectious disease: Currently receiving 6 mg of Decadron daily due to COVID-19 infection. Pro-Obdulio negative. Will discontinue empiric antibiotics. Hematologic: No issues. Endocrine: Hyperglycemia management per ICU pharmacist. VTE prophylaxis: Continue heparin 7500 units every 8 hours CODE STATUS: Full code. Disposition: Remain in the ICU. Discussed with nursing and respiratory therapy I have personally spent 36 minutes of critical care time in the direct management of this patient. This is a life/limb threatening event. This includes time spent evaluating patient, direct bedside care, chart review, placing orders, interpretation of diagnostic studies, discussion with consultants, patient, and family members, as well as other required patient management activities. This time is exclusive of all separately billable procedures, and teaching time and separate from and in addition to any other critical care service time. Thank you for allowing us to participate in the care of this patient. Admission and Anticipated Discharge Date Admission Date: July 15, 2021 Subjective Patient seen and examined. Currently on propofol and fentanyl. Responds to painful stimuli. Weaning vent parameters. No overnight events. Review of Systems Review of Systems: Unobtainable due to endotracheal tube Physical Exam Physical Exam: Constitutional: Intubated and sedated. No distress. Eyes: Pupils are equal round and reactive to light. Conjunctivae are normal. Anicteric sclera. Ears nose, mouth and throat: Limited by CPAP mask. Neck: Trachea is midline. Visual inspection is normal. Respiratory: Coarse lung sounds bilaterally. Diminished in the bases. Cardiovascular: Regular rate and rhythm. No murmurs. Trace edema in the lower extremities bilaterally. Gastrointestinal: Normal bowel sounds, soft, nontender and nondistended. No hepatosplenomegaly noted. Musculoskeletal: Patient is able to move all extremities. Skin: No rashes, warm dry and intact. Neurologic: No focal deficits. Intubated, sedated. Results & Data Results & Data ([facility]) Vital Signs (Past 12 Hours) Vital Signs Temp Pulse Resp BP Pulse Ox 07/22/21 16:00 37.2 C 60 22 128/77 93 07/22/21 15:30 60 22 93 07/22/21 15:00 60 22 93 07/22/21 14:55 60 22 93 07/22/21 14:30 60 22 93 07/22/21 14:00 37.1 C 60 22 93 07/22/21 13:30 61 22 93 07/22/21 13:00 60 22 93 07/22/21 12:30 60 22 93 07/22/21 12:00 60 22 162/62 H 92 07/22/21 11:31 60 22 93 07/22/21 11:30 37 C 62 21 98 07/22/21 11:00 60 22 92 07/22/21 10:30 60 22 92 07/22/21 10:00 60 22 92 07/22/21 09:30 60 22 92 07/22/21 09:00 60 22 93 07/22/21 08:30 37.2 C 60 22 93 07/22/21 08:08 60 22 93 07/22/21 08:00 60 22 126/69 95 07/22/21 07:30 60 22 94 07/22/21 07:00 60 22 93 07/22/21 06:30 69 21 90 07/22/21 06:00 60 22 96 Vital signs, labs and imaging remain stable. Coding Level of Care Code Critical Care 1st 30-74 mins Diagnoses COVID-19 U07.1 Respiratory failure with hypoxia J96.01 Chronicity: acute CKD (chronic kidney disease) stage 3, GFR 30-59 ml/min N18.3 Hx of heart artery stent Z95.5 Time Spent (min) 36 (1) Respiratory failure with hypoxia Chronicity: acute Qualified Code(s): J96.01 - Acute respiratory failure with hypoxia
--- NOTE | 2021-07-22 19:27 | Hospitalist Progress Note ---
Date of Service July 22, 2021 Assessment & Plan (1) Respiratory failure with hypoxia: (2) COVID-19: Plan: Patient vaccinated fully against Covid, last dose November 2020 Plan: Acute on chronic hypoxic respiratory failure ARDS secondary to COVID-19 Vaccinated against Covid, last dose November 2020 -CXR:Extensive bilateral airspace opacities which favor an infectious process such as viral pneumonia. Radiographic follow-up to ensure resolution is recommended. Procalcitonin negative Not a candidate for remdesivir Continue dexamethasone course Appreciate critical care input Vent management as per ICU team Continue tube feeds On heparin SQ for DVT prophylaxis Mild hyponatremia Sodium: 134>>139 Sodium level normalized ASPEN on CKD III Baseline 1.5-1.7; presenting creatinine 1.93 Hold nephrotoxic including torsemide and spironolactone Monitor renal function Creatinine normalized to 1.17 CAD Continue aspirin, statin DM II SSI, glycemic pharmacy DVT Px: Heparin SQ CODE STATUS Full code Admission and Anticipated Discharge Date Admission Date: July 15, 2021 Subjective Patient is seen and examined at bedside Currently sedated and intubated On tube feed On propofol, fentanyl Review of Systems Review of Systems: Unobtainable due to endotracheal tube Physical Exam Physical Exam: Physical Exam: Vitals signs as noted above General Appearance:Obese, Sedated and intubated Head: normocephalic, Atraumatic Eyes: normal inspection Neck: supple, Trachea midline Respiratory/Chest: Decreased course breath sounds Cardiovascular: S1, S2, No murmur Abdomen/GI:Soft, Non tender, Bowel sounds present Extremities/Musculoskeletal:normal inspection, no edema Neurologic/Psych:Intubated Skin: normal color, warm Results & Data Results & Data ([facility]) Vital Signs (Past 12 Hours) Vital Signs Temp Pulse Resp BP Pulse Ox 07/22/21 16:00 37.2 C 60 22 128/77 93 07/22/21 15:30 60 22 93 07/22/21 15:00 60 22 93 07/22/21 14:55 60 22 93 07/22/21 14:30 60 22 93 07/22/21 14:00 37.1 C 60 22 93 07/22/21 13:30 61 22 93 07/22/21 13:00 60 22 93 07/22/21 12:30 60 22 93 07/22/21 12:00 60 22 162/62 H 92 07/22/21 11:31 60 22 93 07/22/21 11:30 37 C 62 21 98 07/22/21 11:00 60 22 92 07/22/21 10:30 60 22 92 07/22/21 10:00 60 22 92 07/22/21 09:30 60 22 92 07/22/21 09:00 60 22 93 07/22/21 08:30 37.2 C 60 22 93 07/22/21 08:08 60 22 93 07/22/21 08:00 60 22 126/69 95 07/22/21 07:30 60 22 94 Laboratory Results Short CBC 07/22/21 Range/Units 05:46 WBC 8.62 (4.8-10.8) K/uL Hgb 12.6 (12.0-16.0) g/dL Hct 37.2 (37-47) % Plt Count 164 (130-400) K/uL BMP 07/22/21 05:46 Sodium 139 Potassium 4.1 Chloride 109 H Carbon Dioxide 26 BUN 78 H Creatinine 1.17 Glucose 119 H Calcium 9.3 (1) Respiratory failure with hypoxia Chronicity: acute Qualified Code(s): J96.01 - Acute respiratory failure with hypoxia
[2021-07-23] MEDS: fentaNYL DRIP 1,250 MCG/250 ML BAG IV SCH ×3 (03:03→13:45)
[2021-07-23] MEDS: TUBE FEEDING WATER FLUSH OG SCH ×6 (04:17→20:08)
[2021-07-23] MEDS: ARTIFICIAL TEARS OP OINT 3.5 GM TUBE OP SCH ×5 (04:17→20:08)
[2021-07-23] MEDS: INSULIN ASPART 100 UNITS/ML 3 ML PEN SC SCH ×5 (04:19→20:14)
[2021-07-23 05:04] LABS: iSTAT Arterial Blood Gas HCO3 26 meg/L (19-24); iSTAT Arterial Blood Gas pCO2 46 mmHg (35-46); iSTAT Arterial Blood Gas pH 7.37 (7.35-7.45); iSTAT Arterial Blood Gas pO2 71 mmHg (80-95); iSTAT Carbon Dioxide 28 mmol/L (24-31); iSTAT FiO2 40 %; iSTAT Site Art Line
[2021-07-23] MEDS: propofoL 1,000 MG/100 ML VIAL IV SCH ×6 (05:50→11:35)
[2021-07-23] MEDS: HEPARIN SOD 5,000 UNIT/0.5 ML VIAL SQ SCH ×2 (06:01→13:12)
[2021-07-23 06:18] LABS: Basophils # (auto) 0.01 K/uL (0-0.2); Basophils % (auto) 0.1 %; Hematocrit (blood only) 38.1 % (37-47); Hemoglobin 12.8 g/dL (12.0-16.0); Immature Granulocytes # (auto) 0.07 K/uL (0.00-0.02); Immature Granulocytes % (auto) 0.8 %; Lymphocytes # (auto) 0.38 K/uL (1.2-3.4); Lymphocytes % (auto) 4.2 %; Mean Corpuscular Hemoglobin 31.6 pg (25-34); Mean Corpuscular Hgb Conc 33.6 g/dL (32-36); Mean Corpuscular Volume 94.1 fL (80-100); Mean Platelet Volume 11.7 fL (7.4-10.4); Monocytes # (auto) 0.25 K/uL (0.11-0.59); Monocytes % (auto) 2.8 %; Neutrophils # (auto) 8.31 K/uL (1.4-6.5); Neutrophils % (auto) 92.1 %; Platelet Count 145 K/uL (130-400); Red Blood Count 4.05 M/uL (4.2-5.4); White Blood Count 9.02 K/uL (4.8-10.8)
[2021-07-23 06:49] LABS: BUN Creatinine Ratio 71.8 (10-20); Calcium 9.1 mg/dl (8.5-10.1); Creatinine Clr Calc Pharmacy 47.3 ml/min; Est GFR (African American) 59.2 ml/min; Est GFR (Non-African American) 51.1 ml/min; Magnesium 3.4 mg/dl (1.8-2.4); Phosphorus 3.5 mg/dl (2.5-4.9); Potassium 4.2 mmol/L (3.5-5.1)
[2021-07-23] MEDS: CISATRACURIUM BESYLATE 40 MG in 0.9 % SODIUM CHLORIDE 80 ML IV SCH (08:13)
[2021-07-23] MEDS: ASPIRIN 81 MG CHEW PO SCH (08:16)
[2021-07-23] MEDS: ATORVASTATIN 40 MG TAB PO SCH (08:16)
[2021-07-23] MEDS: FAMOTIDINE 20 MG in SYRINGE 3 ML IV SCH (08:17)
[2021-07-23] MEDS: POLYETHYLENE (MIRALAX) 17 GM PACK PO SCH (08:17)
[2021-07-23] MEDS: GABAPENTIN 250 MG/5 ML 470 ML BTL PO SCH ×3 (08:17→20:09)
[2021-07-23] MEDS: MULTI VIT W/MINERALS LIQUID 15 ML UDP NG SCH (08:17)
[2021-07-23] MEDS: INSULIN GLARGINE SOLOSTAR 100 UNITS/ML 3 ML PEN SC SCH (08:17)
--- NOTE | 2021-07-23 08:28 | XRay Report ---
XR chest 1V portable CLINICAL HISTORY: Follow-up bilateral airspace opacities. COMPARISON STUDY: 07/22/2021 TECHNIQUE: 1 view of the chest FINDINGS: Single frontal view of the chest demonstrates the cardiomediastinal silhouette to be within normal li mits. Tubes and catheters are essentially unchanged. Compared to previous examination, there is no si gnificant interval change in extensive interstitial and alveolar opacities bilaterally. There is no e vidence for pleural effusion. There is evidence for mild central vascular congestion. There is no acu te osseous pathology. IMPRESSION: No significant interval change in diffuse interstitial and alveolar opacities bilaterally . There is evidence for mild central vascular congestion. ACT 112: Negative or not required by law. Electronically signed by: Ashutosh Medeiros M.D. 07/23/2021 8:27 AM
[2021-07-23] MEDS ORDERED: FUROSEMIDE INJ 20 MG/2 ML VIAL IV ONE ×5 (10:33→14:00)
[2021-07-23] MEDS ORDERED: dexAMETHasone 6 MG in SYRINGE 0 ML IV SCH (11:30)
[2021-07-23] MEDS ORDERED: hydrALAZINE HCL 20 MG/ML VIAL IV STA ×2 (11:57→13:31)
[2021-07-23] MEDS: INSULIN HUMAN NPH SC SCH ×2 (13:08→20:12)
[2021-07-23] MEDS ORDERED: fentaNYL citrate 100 MCG/2 ML VIAL ONE (13:18)
[2021-07-23] MEDS ORDERED: STAT IV Infusion **Titration per Protocol STA (13:21)
[2021-07-23] MEDS: niCARdipine 25 MG in SODIUM CHLORIDE 0.9% 240 ML IV SCH ×3 (13:43→19:41)
--- NOTE | 2021-07-23 13:45 | Pharmacy Report ---
Pharmacy Glycemic Short Note 2 - Date of Service July 23, 2021 - Glycemic Short BSG Results (Last 24 hours): 07/22/21 07/22/21 07/22/21 16:04 20:14 23:50 Glucose POC Glucose 125 H 112 H 117 H 07/23/21 07/23/21 07/23/21 04:03 05:55 07:51 Glucose 153 H POC Glucose 135 H 150 H 07/23/21 11:42 Glucose POC Glucose 173 H OUTPATIENT ANTIDIABETIC REGIMEN: * Lantus 43 units Q AM + 26 units Q PM * Novolog 10 units w/ breakfast + 18 units w/ lunch + 18 units w/ dinner * A1c = 7.5% 07/16/21 ASSESSMENT: 07/23 * BSGs well controlled 07/22 with current insulin orders * Dexamethasone 6mg IV BID resumed this AM - will continue NPH BID * Patient extubated late this AM. Tube feeds now on hold. May need to titrate down insulin doses if NPO for prolonged period of time. 07/21 * Type 2 diabetic admitted for COVID19 viral pna, resp failure, ARDS. * Patient is now intubated, sedated, paralyzed, receiving dexamethasone 6mg IV BID, and has orders to begin continuous tube feeds * Patient became hyperglycemia yesterdays due to multiple stressors and did receive IV insulin drip for a short period of time. I would not doubt that she may require the drip again in the near future given current stressors and along w/ the initiation of continuous tube feeds with high dose steroid. * Will begin a basal/bolus regimen. NPH will be utilized to address steroid induced hyperglycemia following each dose of dexamethasone. Will utilize a relatively low dose of Lantus on top of this due to out-pt insulin requirements of >100units/day when no receiving steroid therapy. Novolog CF/CR will be based upon outpt regimen and "severe" stress level. PLAN FOR INPATIENT GLYCEMIC CONTROL: * Basal insulin * Lantus 15 units SQ QAM * NPH 25 units SQ with each dose of dexamethasone 6mg IV * Bolus insulin * NovoLog per scale Q 4 hrs * Goal Range: Low 110 mg/dL - High 140 mg/dL * Correction Factor: 9 mg/dL/unit * Nutritional / Prandial insulin per carb ratio of 1 unit per 3 grams CHO consumed PLAN FOR DISCHARGE: * to be determined PLAN FOR DISCHARGE: * HbA1c of 7.5% is likely adequate for patient based on age and comorbidities * Reasonable to continue home regimen at discharge provided patient's PO intake is near baseline
[2021-07-23] MEDS ORDERED: OPTIRAY 320 125ml IV ONE (14:18)
--- NOTE | 2021-07-23 14:33 | CT Scan Report ---
CT angio chest PE protocol CLINICAL HISTORY: Covid positive. Difficulty breathing. Evaluate for pulmonary embolus portable chest from 07/23/2021 COMPARISON STUDY: No previous studies for comparison. CT DOSE: 1013.61 mGy.cm TECHNIQUE: CT Angio of the chest was performed.followed by image post processing with coronal, and s agittal MIP reformats. Contrast Volume: Optiray 320, 121 ml FINDINGS: Vasculature: There is homogeneous perfusion of the pulmonary vasculature bilaterally. No intraluminal filling defects or evidence for pulmonary embolus is seen. Airway: The airway is clear. No endobronchial lesion is identified. Lungs: Extensive groundglass opacities are present throughout both lungs characteristic of a viral ty pe pneumonitis and Covid 19 pneumonia. The lungs are otherwise clear of confluent alveolar opacities, air bronchograms or pulmonary nodules. Pleura: There is no evidence for pleural effusion. There is no evidence for pneumothorax. Mediastinum: There is no evidence for pathologic adenopathy. The heart size is within normal limits. There is coronary artery calcification and mitral annular calcification. The thoracic aorta is within normal limits. There is calcification of the aortic arch and origin of great vessels. There is no ev idence for pericardial effusion. Upper abdomen:The adrenal glands are normal bilaterally. Osseous structures: There is no acute osseous pathology. Impression: 1. No CTA evidence for pulmonary embolus. 2. Extensive groundglass opacities are present throughout both lungs characteristic of a viral type p neumonitis and Covid 19 pneumonia. ACT 112: Negative or not required by law. Electronically signed by: Ashutsoh Medeiros M.D. 07/23/2021 2:31 PM
--- NOTE | 2021-07-23 14:52 | Critical Care Progress Note ---
Date of Service July 23, 2021 Assessment & Plan (1) COVID-19: (2) Respiratory failure with hypoxia: (3) CKD (chronic kidney disease) stage 3, GFR 30-59 ml/min: (4) Hx of heart artery stent: (5) Hemoptysis: Plan: Neurologic: Patient appears lethargic. We will continue to monitor. Avoid sedatives if possible. Pulmonary: Hypoxic respiratory failure secondary to Covid pneumonia. Patient extubated, but had respiratory distress post extubation. She also has evidence of hemoptysis. Stat CTA without evidence of active bleed. Bilateral interstitial infiltrates and groundglass opacity seen with small bilateral effusions. We will start methylprednisone 80 mg 3 times daily for the possibility of diffuse alveolar hemorrhage. OLI cascade ordered to evaluate for autoimmune process. Beta glucan ordered as well to evaluate for possible fungal process. Will have a low threshold for reintubation. Discussed with family and patient and they are both agreeable with reintubation if necessary. Cardiovascular: She has an extensive history of coronary artery disease. Echo with LVEF of 55 to 60%. Mild aortic regurgitation. Severe mitral annular calcification. Moderate mitral regurgitation. Possible flash pulmonary edema as noted above. Continue prn diuresis. Status post lasix 20 mg x2. Nicardipine started to target systolic blood pressures of 140-150. EKG without obvious ischemia. AF noted. Troponin ordered. Gastrointestinal: Maintain strict n.p.o. status. Renal: History of CKD stage III. Creatinine stable. Electrolytes reasonable. Infectious disease: We will repeat a procalcitonin. Beta glucan sent as noted above. Hematologic: Patient with hemoptysis. CBC, INR and PTT ordered. Hold all anticoagulation Endocrine: Hyperglycemia management per ICU pharmacist. VTE prophylaxis: Hold all anticoagulation and start SCDs. CODE STATUS: Full code. Disposition: Remain in the ICU. Discussed with nursing and respiratory therapy. Family updated by TANISHA Armendariz. I have personally spent 83 minutes of critical care time in the direct management of this patient. This is a life/limb threatening event. This includes time spent evaluating patient, direct bedside care, chart review, placing orders, interpretation of diagnostic studies, discussion with consultants, patient, and family members, as well as other required patient management activities. This time is exclusive of all separately billable procedures, and teaching time and separate from and in addition to any other critical care service time. Thank you for allowing us to participate in the care of this patient. Admission and Anticipated Discharge Date Admission Date: July 15, 2021 Subjective Patient was doing well on a spontaneous breathing trial and all sedation was weaned off. She was ultimately extubated. However, she began having hemoptysis roughly 2 to 3 hours after extubation. She had approximately 100 mL of dark red hemoptysis. She had increasing respiratory distress and was placed on high flow nasal cannula at a rate of 60 L/min and 100% FiO2. We gave an additional 20 mg of IV Lasix and she has had approximately 300 mL of urine output after Lasix. She was also started on a nicardipine drip with improvement of her systolic blood pressures from one seventies to one fifties. She was placed on CPAP with an FiO2 of 60% and pressure of 8 cm H2O. She appears more comfortable at this time. She was sent for stat CT of the chest. Review of Systems Review of Systems: She follows simple commands. She endorses shortness of breath. She endorses chest pain. Physical Exam Physical Exam: Constitutional: Mild distress on CPAP. Week. Eyes: Pupils are equal round and reactive to light. Conjunctivae are normal. Anicteric sclera. Ears nose, mouth and throat: Limited by CPAP mask. Dried blood noted in her mouth. Neck: Trachea is midline. Visual inspection is normal. Respiratory: Coarse lung sounds bilaterally. Diminished in the bases. Cardiovascular: Regular rate and rhythm. No murmurs. Trace edema in the lower extremities bilaterally. Gastrointestinal: Normal bowel sounds, soft, nontender and nondistended. No he patosplenomegaly noted. Musculoskeletal: Patient is able to move all extremities. Skin: No rashes, warm dry and intact. Neurologic: No focal deficits. Intubated, sedated. Results & Data Results & Data ([facility]) Vital Signs (Past 12 Hours) Vital Signs Temp Pulse Pulse Resp BP BP Pulse Ox 07/23/21 12:32 92 07/23/21 12:00 127/68 07/23/21 11:48 37.3 C 80 22 175/100 H 84 L 07/23/21 10:40 79 20 92 07/23/21 10:30 74 20 90 07/23/21 10:00 37 C 60 22 92 07/23/21 09:30 60 22 92 07/23/21 09:00 60 22 92 12/02/21 08:30 62 22 92 07/23/21 08:00 37.1 C 60 22 136/55 L 142/73 H 92 07/23/21 07:30 60 22 92 07/23/21 07:00 60 22 92 07/23/21 06:40 60 22 92 07/23/21 06:30 60 22 92 07/23/21 06:00 60 22 91 07/23/21 05:00 60 22 91 07/23/21 04:25 22 07/23/21 04:00 60 22 136/55 L 94 07/23/21 03:30 60 22 94 07/23/21 03:00 60 22 94 07/23/21 02:52 61 22 94 vital signs, labs and imaging reviewed Coding Level of Care Code 19656 Prolonged Care (int'l) Diagnoses COVID-19 U07.1 Respiratory failure with hypoxia J96.01 Chronicity: acute CKD (chronic kidney disease) stage 3, GFR 30-59 ml/min N18.3 Hx of heart artery stent Z95.5 Hemoptysis R04.2 Time Spent (min) 83 (1) Respiratory failure with hypoxia Chronicity: acute Qualified Code(s): J96.01 - Acute respiratory failure with hypoxia
[2021-07-23 15:16] LABS: Hematocrit (blood only) 40.7 % (37-47); Hemoglobin 13.9 g/dL (12.0-16.0); Mean Corpuscular Hemoglobin 31.8 pg (25-34); Mean Corpuscular Hgb Conc 34.2 g/dL (32-36); Mean Corpuscular Volume 93.1 fL (80-100); Mean Platelet Volume 12.3 fL (7.4-10.4); Nucleated RBC # (auto) 0.03 K/uL (0-0); Nucleated RBC % (auto) 0.1 %; Platelet Count 196 K/uL (130-400); RDW Coefficient of Variation 14.1 % (11.5-14.5); Red Blood Count 4.37 M/uL (4.2-5.4); White Blood Count 19.68 K/uL (4.8-10.8)
[2021-07-23] MEDS ORDERED: PIPERACILL/TAZOBAC CONSULT ACTIVE PRN (15:37)
[2021-07-23 16:06] LABS: Fibrinogen 362 mg/dl (184-400); Partial Thromboplastin Ratio 1.5; Prothrombin Time 10.5 Seconds (9.0-12.0)
[2021-07-23 16:24] LABS: Basophils # (auto) 0.01 K/uL (0-0.2); Basophils % (auto) 0.1 %; Immature Granulocytes # (auto) 0.18 K/uL (0.00-0.02); Immature Granulocytes % (auto) 0.9 %; Lymphocytes # (auto) 0.98 K/uL (1.2-3.4); Monocytes # (auto) 0.49 K/uL (0.11-0.59); Monocytes % (auto) 2.5 %; Neutrophils # (auto) 18.02 K/uL (1.4-6.5); Neutrophils % (auto) 91.5 %
[2021-07-23] MEDS ORDERED: PIPERACILLIN/TAZOBACTAM 3.375 GM in DEXTROSE 5% 100 ML IV ONE (16:30)
--- NOTE | 2021-07-23 17:08 | Electrocardiogram Report ---
Test Reason : Blood Pressure : / mmHG Vent. Rate : 071 BPM Atrial Rate : 065 BPM P-R Int : 000 ms QRS Dur : 088 ms QT Int : 400 ms P-R-T Axes : 000 004 228 degrees QTc Int : 434 ms Atrial fibrillation with occasional ventricular-paced complexes Abnormal ECG When compared with ECG of 15-JUL-2021 12:31, Electronic ventricular pacemaker has replaced Sinus rhythm Confirmed by Surinder Bermeo ([id number]) on 07/23/2021 5:08:26 PM Also confirmed by Surinder Bermeo ([id number]) on 07/23/2021 5:09:23 PM Referred By: REFERRED SELF Confirmed By:Michael Bermeo
--- NOTE | 2021-07-23 17:29 | Hospitalist Progress Note ---
Date of Service July 23, 2021 Assessment & Plan (1) Respiratory failure with hypoxia: (2) COVID-19: Plan: Patient vaccinated fully against Covid, last dose November 2020 Plan: Acute on chronic hypoxic respiratory failure ARDS secondary to COVID-19 Vaccinated against Covid, last dose November 2020 -CXR:Extensive bilateral airspace opacities which favor an infectious process such as viral pneumonia. Radiographic follow-up to ensure resolution is recommended. Procalcitonin negative Not a candidate for remdesivir Continue dexamethasone course Appreciate critical care input Tube feeds And respiratory distress post extubation, developed hemoptysis Heparin SQ held due to Hemoptysis CTA today showed extensive groundglass opacities are present throughout both lungs characteristic of a viral type pneumonitis and Covid 19 pneumonia. Started on Solumedrol for possible diffuse alveolar hemorrhage Serological work-up for autoimmune disease ordered by Critical care Low threshold to reintubate if needed Started on Zosyn Possible flash pulmonary edema Lasix as needed Started on nicardipine drip to Control BP Atrial Fibrillation Rate controlled Monitor Mild hyponatremia Sodium: 134>>140 Sodium level normalized SAPEN on CKD III Baseline 1.5-1.7; presenting creatinine 1.93 Hold nephrotoxic including torsemide and spironolactone Monitor renal function Creatinine normalized to 1.04 CAD Continue aspirin, statin DM II SSI, glycemic pharmacy DVT Px: Heparin SQ--Held due to Hemoptysis CODE STATUS Full code Admission and Anticipated Discharge Date Admission Date: July 15, 2021 Subjective Patient is seen and examined at bedside Off sedation Had hemoptysis today Nods to simple questions On Nicardipine drip Review of Systems Review of Systems: Other Physical Exam Physical Exam: Physical Exam: Vitals signs as noted above General Appearance:Obese, Sedated and intubated Head: normocephalic, Atraumatic Eyes: normal inspection Neck: supple, Trachea midline Respiratory/Chest: Decreased course breath sounds Cardiovascular: S1, S2, No murmur Abdomen/GI:Soft, Non tender, Bowel sounds present Extremities/Musculoskeletal:normal inspection, no edema Neurologic/Psych:Intubated Skin: normal color, warm Results & Data Results & Data ([facility]) Vital Signs (Past 12 Hours) Vital Signs Temp Pulse Pulse Resp BP BP Pulse Ox 07/23/21 16:07 36.8 C 07/23/21 16:00 71 0 L 132/78 94 07/23/21 15:30 71 0 L 95 07/23/21 15:00 77 0 L 94 07/23/21 14:54 70 26 H 92 07/23/21 14:30 83 0 L 86 L 07/23/21 14:00 37 C 0 L 07/23/21 13:30 68 0 L 94 07/23/21 13:00 84 0 L 93 07/23/21 12:32 92 07/23/21 12:30 74 0 L 147/73 H 90 07/23/21 12:00 77 0 L 127/68 86 L 07/23/21 11:48 37.3 C 80 22 175/100 H 84 L 07/23/21 11:30 70 0 L 86 L 07/23/21 11:00 75 0 L 89 L 07/23/21 10:40 79 20 92 07/23/21 10:30 74 20 90 07/23/21 10:00 37 C 60 22 92 07/23/21 09:30 60 22 92 07/23/21 09:00 60 22 92 07/23/21 08:30 62 22 92 07/23/21 08:00 37.1 C 60 22 136/55 L 142/73 H 92 07/23/21 07:30 60 22 92 07/23/21 07:00 60 22 92 07/23/21 06:40 60 22 92 07/23/21 06:30 60 22 92 07/23/21 06:00 60 22 91 Laboratory Results Short CBC 07/23/21 07/23/21 Range/Units 05:55 14:43 WBC 9.02 19.68 H D (4.8-10.8) K/uL Hgb 12.8 13.9 (12.0-16.0) g/dL Hct 38.1 40.7 (37-47) % Plt Count 145 196 (130-400) K/uL BMP 07/23/21 05:55 Sodium 140 Potassium 4.2 Chloride 110 H Carbon Dioxide 26 BUN 75 H Creatinine 1.04 Glucose 153 H Calcium 9.1 Cardiac Enzymes 07/23/21 Range/Units 14:43 Troponin I 0.024 (0-0.045) ng/ml (1) Respiratory failure with hypoxia Chronicity: acute Qualified Code(s): J96.01 - Acute respiratory failure with hypoxia
[2021-07-23] MEDS: methylPREDNISolone 80 MG in SYRINGE 0 ML IV SCH (20:12)
[2021-07-23] MEDS: PIPERACILLIN/TAZOBACTAM 3.375 GM in DEXTROSE 5% 100 ML IV SCH (23:22)
[2021-07-24] MEDS: CISATRACURIUM BESYLATE 40 MG in 0.9 % SODIUM CHLORIDE 80 ML IV SCH (00:19)
[2021-07-24] MEDS: fentaNYL DRIP 1,250 MCG/250 ML BAG IV SCH ×2 (00:19→07:15)
[2021-07-24] MEDS: INSULIN ASPART 100 UNITS/ML 3 ML PEN SC SCH ×6 (00:21→20:17)
[2021-07-24] MEDS: TUBE FEEDING WATER FLUSH OG SCH ×2 (00:22→05:41)
[2021-07-24] MEDS: niCARdipine 25 MG in SODIUM CHLORIDE 0.9% 240 ML IV SCH ×7 (00:44→21:49)
[2021-07-24] MEDS: ARTIFICIAL TEARS OP OINT 3.5 GM TUBE OP SCH ×3 (05:39→08:00)
[2021-07-24 06:47] LABS: BUN Creatinine Ratio 49.9 (10-20); Calcium 9.2 mg/dl (8.5-10.1); Creatinine Clr Calc Pharmacy 27.2 ml/min; Est GFR (African American) 30.3 ml/min; Est GFR (Non-African American) 26.1 ml/min; Potassium 4.2 mmol/L (3.5-5.1)
[2021-07-24] MEDS: PIPERACILLIN/TAZOBACTAM 3.375 GM in DEXTROSE 5% 100 ML IV SCH (07:59)
[2021-07-24] MEDS: FAMOTIDINE 20 MG in SYRINGE 3 ML IV SCH (07:59)
[2021-07-24] MEDS: GABAPENTIN 250 MG/5 ML 470 ML BTL PO SCH ×3 (08:01→20:20)
[2021-07-24] MEDS: ATORVASTATIN 40 MG TAB PO SCH (08:02)
[2021-07-24] MEDS: MULTI VIT W/MINERALS LIQUID 15 ML UDP NG SCH (08:02)
[2021-07-24] MEDS: POLYETHYLENE (MIRALAX) 17 GM PACK PO SCH (08:02)
--- NOTE | 2021-07-24 08:03 | XRay Report ---
XR chest 1V portable HISTORY: pneumonia COMPARISON: Chest 07/22/2021. FINDINGS: Extensive bilateral airspace opacities consistent with a viral pneumonia. This is similar t o the prior study. Right jugular central venous catheter terminates at the superior cavoatrial juncti on. 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 The heart remains mildly enlarged. Small bilateral pleural effusions persist. IMPRESSION: No change in the multifocal bilateral airspace opacities and small bilateral pleural effusions. ACT 112: Negative or not required by law. Electronically signed by: Stevo Alvarez M.D. 07/24/2021 8:01 AM
[2021-07-24] MEDS: methylPREDNISolone 80 MG in SYRINGE 0 ML IV SCH ×3 (08:32→20:20)
[2021-07-24] MEDS: INSULIN HUMAN NPH SC SCH ×2 (08:32→20:19)
[2021-07-24] MEDS: PANTOprazole 40 MG in SYRINGE 0 ML IV SCH ×2 (08:32→20:20)
[2021-07-24 10:59] LABS: Basophils # (auto) 0.02 K/uL (0-0.2); Basophils % (auto) 0.1 %; Hematocrit (blood only) 38.1 % (37-47); Hemoglobin 12.9 g/dL (12.0-16.0); Immature Granulocytes # (auto) 0.14 K/uL (0.00-0.02); Immature Granulocytes % (auto) 0.8 %; Lymphocytes # (auto) 0.41 K/uL (1.2-3.4); Lymphocytes % (auto) 2.3 %; Mean Corpuscular Hemoglobin 31.6 pg (25-34); Mean Corpuscular Volume 93.4 fL (80-100); Mean Platelet Volume 12.1 fL (7.4-10.4); Monocytes # (auto) 0.48 K/uL (0.11-0.59); Monocytes % (auto) 2.7 %; Neutrophils # (auto) 16.65 K/uL (1.4-6.5); Neutrophils % (auto) 94.1 %; Nucleated RBC # (auto) 0.03 K/uL (0-0); Nucleated RBC % (auto) 0.2 %; Platelet Count 204 K/uL (130-400); RDW Coefficient of Variation 14.4 % (11.5-14.5); Red Blood Count 4.08 M/uL (4.2-5.4)
[2021-07-24 11:02] LABS: Mean Corpuscular Hgb Conc 33.9 g/dL (32-36)
--- NOTE | 2021-07-24 11:41 | Pharmacy Report ---
Pharmacy Glycemic Short Note 2 - Date of Service July 24, 2021 - Glycemic Short BSG Results (Last 24 hours): 07/23/21 07/23/21 07/23/21 11:42 17:29 20:10 Glucose POC Glucose 173 H 224 H 173 H 07/24/21 07/24/21 07/24/21 00:12 03:56 05:34 Glucose 143 H POC Glucose 209 H 146 H 07/24/21 08:09 Glucose POC Glucose 154 H OUTPATIENT ANTIDIABETIC REGIMEN: * Lantus 43 units Q AM + 26 units Q PM * Novolog 10 units w/ breakfast + 18 units w/ lunch + 18 units w/ dinner * A1c = 7.5% 07/16/21 ASSESSMENT: 07/24 * BSGs fairly well controlled given the events of the last 24 hrs * Patient was extubated yesterday, however became hypertensive and developed hemoptysis, concern for flash pulm edema. * Steroid has been changed from dexamethasone 6mg IV Q 12 hrs to methylprednisolone 80mg IV TID. * Patient is NPO at this time. Will need a swallow eval. Per RN, pt remains lethargic and may not be able to eat today. * Will proceed with using NPH BID as previously order, but hold Lantus this AM...until we see BSG trends while NPO. Home basal insulin doses were substantial so I think she will tolerating both the Lantus and NPH. * Plan to continue Novolog "severe" stress wt based doses for now 07/23 * BSGs well controlled 07/22 with current insulin orders * Dexamethasone 6mg IV BID resumed this AM - will continue NPH BID * Patient extubated late this AM. Tube feeds now on hold. May need to titrate down insulin doses if NPO for prolonged period of time. 07/21 * Type 2 diabetic admitted for COVID19 viral pna, resp failure, ARDS. * Patient is now intubated, sedated, paralyzed, receiving dexamethasone 6mg IV BID, and has orders to begin continuous tube feeds * Patient became hyperglycemia yesterdays due to multiple stressors and did receive IV insulin drip for a short period of time. I would not doubt that she may require the drip again in the near future given current stressors and along w/ the initiation of continuous tube feeds with high dose steroid. * Will begin a basal/bolus regimen. NPH will be utilized to address steroid induced hyperglycemia following each dose of dexamethasone. Will utilize a relatively low dose of Lantus on top of this due to out-pt insulin requirements of >100units/day when no receiving steroid therapy. Novolog CF/CR will be based upon outpt regimen and "severe" stress level. PLAN FOR INPATIENT GLYCEMIC CONTROL: * Basal insulin * Hold Lantus for now. Reassess need at noon today * NPH 25 units SQ BID while on methylpred 80mg IV TID * Bolus insulin * NovoLog per scale Q 4 hrs * Goal Range: Low 110 mg/dL - High 140 mg/dL * Correction Factor: 9 mg/dL/unit * Nutritional / Prandial insulin per carb ratio of 1 unit per 3 grams CHO consumed PLAN FOR DISCHARGE: * to be determined PLAN FOR DISCHARGE: * HbA1c of 7.5% is likely adequate for patient based on age and comorbidities * Reasonable to continue home regimen at discharge provided patient's PO intake is near baseline
--- NOTE | 2021-07-24 12:29 | Critical Care Progress Note ---
Date of Service July 24, 2021 Assessment & Plan (1) COVID-19: (2) Respiratory failure with hypoxia: (3) CKD (chronic kidney disease) stage 3, GFR 30-59 ml/min: (4) Hx of heart artery stent: (5) Hemoptysis: Plan: Neurologic: Patient appears lethargic. We will continue to monitor. Avoid sedatives if possible. Pulmonary: Hypoxic respiratory failure secondary to Covid pneumonia. Patient extubated, but had respiratory distress post extubation. She also has evidence of hemoptysis. Stat CTA without evidence of active bleed. Bilateral interstitial infiltrates and groundglass opacity seen with small bilateral effusions. Continue methylprednisone 80 mg, 3 times daily for the possibility of diffuse alveolar hemorrhage. OLI cascade ordered to evaluate for autoimmune process. Beta glucan ordered as well to evaluate for possible fungal process. Will have a low threshold for reintubation. Discussed with family and patient and they are both agreeable with reintubation if necessary. Cardiovascular: She has an extensive history of coronary artery disease. Echo with LVEF of 55 to 60%. Mild aortic regurgitation. Severe mitral annular calcification. Moderate mitral regurgitation. Possible flash pulmonary edema as noted above. Continue prn diuresis. Status post lasix 20 mg x2. Nicardipine started to target systolic blood pressures of 140-150. EKG without obvious ischemia. AF noted. Troponin negative. Gastrointestinal: Maintain strict n.p.o. status. Renal: History of CKD stage III. Creatinine stable. Electrolytes reasonable. Infectious disease: We will repeat a procalcitonin. Beta glucan sent as noted above. Continue Zosyn. Slight improvement in white count. Hematologic: Patient with hemoptysis. Hemoglobin stable. INR within normal limits. PTT was mildly elevated yesterday, will repeat today. Endocrine: Hyperglycemia management per ICU pharmacist. VTE prophylaxis: Hold all anticoagulation and continue SCDs. CODE STATUS: Full code. Disposition: Remain in the ICU. I have personally spent 44 minutes of critical care time in the direct management of this patient. This is a life/limb threatening event. This includes time spent evaluating patient, direct bedside care, chart review, placing orders, interpretation of diagnostic studies, discussion with consultants, patient, and family members, as well as other required patient management activities. This time is exclusive of all separately billable procedures, and teaching time and separate from and in addition to any other critical care service time. Thank you for allowing us to participate in the care of this patient. Admission and Anticipated Discharge Date Admission Date: July 15, 2021 Subjective Patient seen and examined. Currently on high flow nasal cannula. Appears very lethargic. Able to respond to simple commands such as squeezing my hand or nodding her head. Review of Systems Review of Systems: Unobtainable due to cognitive status Physical Exam Physical Exam: Constitutional: Mild distress on HFNC. Weak. Eyes: Pupils are equal round and reactive to light. Conjunctivae are normal. Anicteric sclera. Ears nose, mouth and throat: Dried blood noted in her mouth. Neck: Trachea is midline. Visual inspection is normal. Respiratory: Coarse lung sounds bilaterally. Diminished in the bases. Cardiovascular: Regular rate and rhythm. No murmurs. Trace edema in the lower extremities bilaterally. Gastrointestinal: Normal bowel sounds, soft, nontender and nondistended. No hepatosplenomegaly noted. Musculoskeletal: Patient is able to move all extremities. Skin: No rashes, warm dry and intact. Neurologic: No focal deficits. Intubated, sedated. Results & Data Results & Data ([facility]) Vital Signs (Past 12 Hours) Vital Signs Temp Pulse Pulse Resp BP Pulse Ox 07/24/21 11:15 87 20 91 07/24/21 10:00 67 91 07/24/21 09:30 72 90 07/24/21 09:00 75 91 07/24/21 08:30 76 92 07/24/21 08:00 70 145/76 H 93 07/24/21 07:30 75 94 07/24/21 07:00 69 93 07/24/21 06:48 78 19 93 07/24/21 06:30 67 94 07/24/21 06:00 72 94 07/24/21 05:30 68 94 07/24/21 05:00 65 93 07/24/21 04:30 77 93 07/24/21 04:00 71 93 07/24/21 03:33 36.9 C 07/24/21 03:30 72 93 07/24/21 03:00 74 93 07/24/21 02:30 71 93 07/24/21 02:00 67 93 07/24/21 01:55 64 18 93 07/24/21 01:30 64 92 07/24/21 01:00 76 92 07/24/21 00:30 75 92 Coding Level of Care Code Critical Care 1st 30-74 mins Diagnoses COVID-19 U07.1 Respiratory failure with hypoxia J96.01 Chronicity: acute CKD (chronic kidney disease) stage 3, GFR 30-59 ml/min N18.3 Hx of heart artery stent Z95.5 Hemoptysis R04.2 Time Spent (min) 44 (1) Respiratory failure with hypoxia Chronicity: acute Qualified Code(s): J96.01 - Acute respiratory failure with hypoxia
[2021-07-24 13:15] LABS: Partial Thromboplastin Ratio 1.4; Partial Thromboplastin Time 36.1 Seconds (21.0-31.0)
[2021-07-24] MEDS ORDERED: INSULIN GLARGINE SOLOSTAR 100 UNITS/ML 3 ML PEN SC ONE (13:15)
[2021-07-24] MEDS ORDERED: ALBUMIN 5% 250 ML IV ONE (15:51)
[2021-07-24 16:59] LABS: BUN Creatinine Ratio 45.6 (10-20); Calcium 9.1 mg/dl (8.5-10.1); Creatinine Clr Calc Pharmacy 22.7 ml/min; Est GFR (African American) 24.3 ml/min; Potassium 4.1 mmol/L (3.5-5.1)
[2021-07-24 17:58] LABS: Appearance Urine Clear (Clear); Bacteria Urine Automated Negative (Negative); Bilirubin Urine Negative (Negative); Blood Urine Negative (Negative); Color Urine Dark Yellow; Epithelial Cell Urine Auto >30 /lpf (0-5); Glucose Urine UA Negative (Negative); Ketones Urine Negative (Negative); Leukocyte Esterase Urine Trace (Negative); Nitrite Urine Negative (Negative); Protein Urine Negative (Negative); RBC Urine Automated >30 /hpf (0-4); Specific Gravity Urine 1.042 (1.000-1.030); Urobilinogen Urine Negative (Negative)
[2021-07-24] MEDS: PIPERACILLIN/TAZOBACTAM 4.5 GM in DEXTROSE 5% 100 ML IV SCH (18:04)
--- NOTE | 2021-07-24 19:13 | Hospitalist Progress Note ---
Date of Service July 24, 2021 Assessment & Plan (1) Respiratory failure with hypoxia: (2) COVID-19: Plan: Patient vaccinated fully against Covid, last dose November 2020 Plan: Acute on chronic hypoxic respiratory failure ARDS secondary to COVID-19 Vaccinated against Covid, last dose November 2020 -CXR:Extensive bilateral airspace opacities which favor an infectious process such as viral pneumonia. Radiographic follow-up to ensure resolution is recommended. Procalcitonin negative Not a candidate for remdesivir Continue dexamethasone course Appreciate critical care input Tube feeds And respiratory distress post extubation, developed hemoptysis Heparin SQ held due to Hemoptysis CTA today showed extensive groundglass opacities are present throughout both lungs characteristic of a viral type pneumonitis and Covid 19 pneumonia. Continue Solumedrol for possible diffuse alveolar hemorrhage Serological work-up for autoimmune disease ordered by Critical care Low threshold to reintubate if needed Continue Zosyn Concern for Vasculitis Placed on Albumin Possible flash pulmonary edema Lasix as needed on nicardipine drip to Control BP Atrial Fibrillation Rate controlled Monitor Mild hyponatremia Sodium: 134>>140> 142 Sodium level normalized ASPEN on CKD III Baseline 1.5-1.7; presenting creatinine 1.93 Hold nephrotoxic including torsemide and spironolactone Monitor renal function Creatinine 2.17 today Nephrology consulted CAD Continue aspirin, statin DM II SSI, glycemic pharmacy DVT Px: Heparin SQ--Held due to Hemoptysis CODE STATUS Full code Admission and Anticipated Discharge Date Admission Date: July 15, 2021 Subjective Patient is seen and examined at bedside Very lethargic during my encounter Unable to provide much history Currently on high flow oxygen On Nicardipine drip Also on albumin Renal function worsening Review of Systems Review of Systems: Other Physical Exam Physical Exam: Physical Exam: Vitals signs as noted above General Appearance:Obese, Sedated and intubated Head: normocephalic, Atraumatic Eyes: normal inspection Neck: supple, Trachea midline Respiratory/Chest: Decreased course breath sounds Cardiovascular: Irregularly irregular,No murmur Abdomen/GI:Soft, Non tender, Bowel sounds present Extremities/Musculoskeletal:normal inspection, no edema Neurologic/Psych:Intubated Skin: normal color, warm Results & Data Results & Data ([facility]) Vital Signs (Past 12 Hours) Vital Signs Pulse Pulse Resp BP Pulse Ox 07/24/21 17:30 89 20 95 07/24/21 17:04 84 23 94 12/03/21 17:03 84 22 94 07/24/21 17:00 84 86 L 07/24/21 16:00 85 16 89 L 07/24/21 15:00 86 18 89 L 07/24/21 14:25 80 20 87 L 07/24/21 14:00 85 88 L 07/24/21 13:30 88 88 L 07/24/21 13:00 87 139/71 88 L 07/24/21 12:30 81 89 L 07/24/21 12:00 82 90 07/24/21 11:15 87 20 91 07/24/21 11:00 75 152/47 H 90 07/24/21 10:00 67 91 07/24/21 09:30 72 90 07/24/21 09:00 75 91 07/24/21 08:30 76 92 07/24/21 08:00 67 147/37 H 93 07/24/21 07:30 75 94 Laboratory Results Short CBC 07/24/21 Range/Units 10:37 WBC 17.70 H (4.8-10.8) K/uL Hgb 12.9 (12.0-16.0) g/dL Hct 38.1 (37-47) % Plt Count 204 (130-400) K/uL BMP 07/24/21 07/24/21 05:34 16:20 Sodium 139 142 Potassium 4.2 4.1 Chloride 109 H 110 H Carbon Dioxide 24 21 BUN 90 H 99 H Creatinine 1.81 H D 2.17 H D Glucose 143 H 183 H Calcium 9.2 9.1 Urine 07/24/21 Range/Units 17:06 Urine Color Dark Yellow Urine Appearance Clear (Clear) Urine pH 5.0 (4.5-7.5) Ur Specific [place] 1.042 H (1.000-1.030) Urine Protein Negative (Negative) Urine Glucose (UA) Negative (Negative) (1) Respiratory failure with hypoxia Chronicity: acute Qualified Code(s): J96.01 - Acute respiratory failure with hypoxia
[2021-07-25] MEDS: PIPERACILLIN/TAZOBACTAM 4.5 GM in DEXTROSE 5% 100 ML IV SCH ×3 (00:06→22:25)
[2021-07-25] MEDS: INSULIN ASPART 100 UNITS/ML 3 ML PEN SC SCH ×6 (00:11→21:18)
[2021-07-25] MEDS: niCARdipine 25 MG in SODIUM CHLORIDE 0.9% 240 ML IV SCH ×6 (02:03→17:45)
[2021-07-25 07:29] LABS: Hematocrit (blood only) 34.9 % (37-47); Hemoglobin 11.7 g/dL (12.0-16.0); Mean Corpuscular Hemoglobin 31.5 pg (25-34); Mean Corpuscular Hgb Conc 33.5 g/dL (32-36); Mean Corpuscular Volume 93.8 fL (80-100); Mean Platelet Volume 12.6 fL (7.4-10.4); Nucleated RBC # (auto) 0.03 K/uL (0-0); Nucleated RBC % (auto) 0.2 %; Platelet Count 191 K/uL (130-400); RDW Coefficient of Variation 14.8 % (11.5-14.5); RDW Standard Deviation 50.7 fL (36.4-46.3); Red Blood Count 3.72 M/uL (4.2-5.4); White Blood Count 17.24 K/uL (4.8-10.8)
[2021-07-25] MEDS: ATORVASTATIN 40 MG TAB PO SCH (07:31)
[2021-07-25] MEDS: GABAPENTIN 250 MG/5 ML 470 ML BTL PO SCH ×3 (07:31→23:38)
[2021-07-25] MEDS: POLYETHYLENE (MIRALAX) 17 GM PACK PO SCH (07:32)
[2021-07-25] MEDS: MULTI VIT W/MINERALS LIQUID 15 ML UDP NG SCH (07:32)
[2021-07-25 07:59] LABS: BUN Creatinine Ratio 39.1 (10-20); Creatinine Clr Calc Pharmacy 17.9 ml/min; Est GFR (African American) 18.3 ml/min; Est GFR (Non-African American) 15.8 ml/min; Magnesium 3.5 mg/dl (1.8-2.4); Potassium 4.2 mmol/L (3.5-5.1)
[2021-07-25 08:00] LABS: Phosphorus 3.1 mg/dl (2.5-4.9)
[2021-07-25] MEDS: INSULIN HUMAN NPH SC SCH (08:00)
--- NOTE | 2021-07-25 08:04 | Ultrasound Report ---
RENAL ULTRASOUND HISTORY: renal failure COMPARISON: None. FINDINGS: Right kidney: 9.7 cm. No hydronephrosis. Mild cortical thinning with increased cortical echogenicity. Left kidney: 10.5 cm. No hydronephrosis. Mild cortical thinning with increased cortical echogenicity. Bladder: The bladder is decompressed by a Bal catheter and therefore not well evaluated. IMPRESSION: 1. No hydronephrosis. 2. Increased cortical echogenicity suggestive of medical renal disease. ACT 112: Negative or not required by law. Electronically signed by: Stevo Alvarez M.D. 07/25/2021 8:02 AM
[2021-07-25] MEDS: INSULIN GLARGINE SOLOSTAR 100 UNITS/ML 3 ML PEN SC SCH (08:09)
[2021-07-25] MEDS ORDERED: methylPREDNISolone 125 MG in SYRINGE 0 ML IV SCH (08:30)
[2021-07-25] MEDS: PANTOprazole 40 MG in SYRINGE 0 ML IV SCH ×2 (08:30→21:06)
--- NOTE | 2021-07-25 08:38 | XRay Report ---
XR chest 1V portable CLINICAL HISTORY: Respiratory failure. COMPARISON STUDY: Chest CT July 23, 2021. Chest radiograph July 24, 2021. FINDINGS: Left subclavian pacer remains in place. A right internal jugular central line is noted. The re is no pneumothorax. There are suspected trace bilateral pleural effusions. Cardiomegaly is unchang ed. There is mitral annular calcification. Extensive bilateral airspace opacities persist. IMPRESSION: No significant change in extensive bilateral airspace opacities. ACT 112: Negative or not required by law. Electronically signed by: Carroll Rodriguez M.D. 07/25/2021 8:36 AM
--- NOTE | 2021-07-25 11:00 | Critical Care Progress Note ---
Date of Service July 25, 2021 Assessment & Plan (1) COVID-19: (2) Respiratory failure with hypoxia: (3) CKD (chronic kidney disease) stage 3, GFR 30-59 ml/min: (4) Hx of heart artery stent: (5) Hemoptysis: Plan: Neurologic: Patient appears lethargic. We will continue to monitor. Avoid sedatives if possible. Pulmonary: Hypoxic respiratory failure secondary to Covid pneumonia. Patient extubated, but had respiratory distress post extubation. She also has evidence of hemoptysis. Stat CTA without evidence of active bleed. Bilateral interstitial infiltrates and groundglass opacity seen with small bilateral effusions. Increase methylprednisone to 125 mg q6h for possibility of diffuse alveolar hemorrhage. OLI cascade ordered to evaluate for autoimmune process. Beta glucan ordered as well to evaluate for possible fungal process. Will have a low threshold for reintubation. Called daughter to discuss goals of care and she is going to discuss with her sisters. Cardiovascular: She has an extensive history of coronary artery disease. Echo with LVEF of 55 to 60%. Mild aortic regurgitation. Severe mitral annular calcification. Moderate mitral regurgitation. Possible flash pulmonary edema as noted above. EKG without obvious ischemia. AF noted. Troponin negative. Off nicardipine ggt. Gastrointestinal: Maintain strict n.p.o. status. Unable to take PO due to poor mental status. May need to consider NGT placement, but she is a considerable aspiration risk without a secure airway. Renal: History of CKD stage III. Renal consulted. Acute kidney injury possibly related vasculitis vs ischemic ATN. Renal US without obstruction. Infectious disease: Procal slightly increased. Beta glucan sent as noted above. Continue Zosyn. Slight improvement in white count. Hematologic: Hemoptysis resolved. Hemoglobin stable. INR within normal limits. PTT remains mildly elevated. Endocrine: Hyperglycemia management per ICU pharmacist. VTE prophylaxis: Hold all anticoagulation and continue SCDs. CODE STATUS: Full code. Disposition: Remain in the ICU. I have personally spent 40 minutes of critical care time in the direct management of this patient. This is a life/limb threatening event. This includes time spent evaluating patient, direct bedside care, chart review, placing orders, interpretation of diagnostic studies, discussion with consultants, patient, and family members, as well as other required patient management activities. This time is exclusive of all separately billable procedures, and teaching time and separate from and in addition to any other critical care service time. Thank you for allowing us to participate in the care of this patient. Admission and Anticipated Discharge Date Admission Date: July 15, 2021 Subjective Patient seen and examined at bedside. Requiring continuous CPAP subsartorially continues to be altered and unable to participate in review of systems. No fur thher hemoptysis. Review of Systems Review of Systems: Unobtainable due to cognitive status Physical Exam Physical Exam: Constitutional: Mild distress on CPAP. Weak. Eyes: Pupils are equal round and reactive to light. Conjunctivae are normal. Anicteric sclera. Ears nose, mouth and throat: Dried blood noted in her mouth. Neck: Trachea is midline. Visual inspection is normal. Respiratory: Coarse lung sounds bilaterally. Diminished in the bases. Cardiovascular: Regular rate and rhythm. No murmurs. Trace edema in the lower extremities bilaterally. Gastrointestinal: Normal bowel sounds, soft, nontender and nondistended. No he patosplenomegaly noted. Musculoskeletal: Patient is able to move all extremities. Skin: No rashes, warm dry and intact. Neurologic: No focal deficits. Intubated, sedated. Results & Data Results & Data ([facility]) Vital Signs (Past 12 Hours) Vital Signs Temp Pulse Resp BP Pulse Ox 07/25/21 10:45 98 H 28 H 91 07/25/21 08:00 37.1 C 85 23 146/82 H 92 07/25/21 07:00 102 H 22 92 07/25/21 06:55 93 H 25 H 92 07/25/21 06:00 88 93 07/25/21 05:30 89 93 07/25/21 05:00 92 H 93 07/25/21 04:30 93 H 94 07/25/21 04:00 95 H 93 07/25/21 03:39 36.9 C 07/25/21 03:30 87 22 93 07/25/21 03:00 96 H 94 07/25/21 02:30 94 H 94 07/25/21 02:00 87 94 07/25/21 01:30 87 95 07/25/21 01:00 89 95 07/25/21 00:30 81 95 07/25/21 00:22 91 H 23 95 07/25/21 00:00 90 96 07/24/21 23:30 87 96 07/24/21 23:00 92 H 95 Coding Level of Care Code Critical Care 1st 30-74 mins Diagnoses COVID-19 U07.1 Respiratory failure with hypoxia J96.01 Chronicity: acute CKD (chronic kidney disease) stage 3, GFR 30-59 ml/min N18.3 Hx of heart artery stent Z95.5 Hemoptysis R04.2 Time Spent (min) 40 (1) Respiratory failure with hypoxia Chronicity: acute Qualified Code(s): J96.01 - Acute respiratory failure with hypoxia
--- NOTE | 2021-07-25 11:23 | Pharmacy Report ---
Pharmacy Glycemic Short Note 2 - Date of Service July 25, 2021 - Glycemic Short BSG Results (Last 24 hours): 07/24/21 07/24/21 07/24/21 12:01 16:20 16:58 Glucose 183 H POC Glucose 211 H 205 H 07/24/21 07/25/21 07/25/21 20:16 00:10 03:55 Glucose POC Glucose 184 H 178 H 175 H 07/25/21 07/25/21 06:34 07:22 Glucose 176 H POC Glucose 192 H OUTPATIENT ANTIDIABETIC REGIMEN: * Lantus 43 units Q AM + 26 units Q PM * Novolog 10 units w/ breakfast + 18 units w/ lunch + 18 units w/ dinner * A1c = 7.5% 07/16/21 ASSESSMENT: 07/25 * BSGs reasonable well controlled over last 24 hrs. Mild hyperglycemia observed despite being NPO. She likely needs larger basal insulin dose with current stressors * Solu-Medrol dose has been increased to 125mg TID - will increase NPH dose sl ightly to combat steroid induced hyperglycemia. Will refrain from increasing Lantus dose as well given ongoing NPO status. * Correctional Novolog dose will also be increased slightly as this will help control BSGs until basal deficiency corrected 07/24 * BSGs fairly well controlled given the events of the last 24 hrs * Patient was extubated yesterday, however became hypertensive and developed hemoptysis, concern for flash pulm edema. * Steroid has been changed from dexamethasone 6mg IV Q 12 hrs to methylprednisolone 80mg IV TID. * Patient is NPO at this time. Will need a swallow eval. Per RN, pt remains lethargic and may not be able to eat today. * Will proceed with using NPH BID as previously order, but hold Lantus this AM...until we see BSG trends while NPO. Home basal insulin doses were substantial so I think she will tolerating both the Lantus and NPH. * Plan to continue Novolog "severe" stress wt based doses for now 07/23 * BSGs well controlled 07/22 with current insulin orders * Dexamethasone 6mg IV BID resumed this AM - will continue NPH BID * Patient extubated late this AM. Tube feeds now on hold. May need to titrate down insulin doses if NPO for prolonged period of time. 07/21 * Type 2 diabetic admitted for COVID19 viral pna, resp failure, ARDS. * Patient is now intubated, sedated, paralyzed, receiving dexamethasone 6mg IV BID, and has orders to begin continuous tube feeds * Patient became hyperglycemia yesterdays due to multiple stressors and did receive IV insulin drip for a short period of time. I would not doubt that she may require the drip again in the near future given current stressors and along w/ the initiation of continuous tube feeds with high dose steroid. * Will begin a basal/bolus regimen. NPH will be utilized to address steroid induced hyperglycemia following each dose of dexamethasone. Will utilize a relatively low dose of Lantus on top of this due to out-pt insulin re quirements of >100units/day when no receiving steroid therapy. Novolog CF/CR will be based upon outpt regimen and "severe" stress level. PLAN FOR INPATIENT GLYCEMIC CONTROL: * Basal insulin * Lantus 15 units SQ Q AM * NPH 30 units SQ BID while on methylpred 125mg IV TID; will give additional NPH 5 units x 1 with 1200 BSG check * Bolus insulin * NovoLog per scale Q 4 hrs * Goal Range: Low 110 mg/dL - High 140 mg/dL * Correction Factor: 8 mg/dL/unit * Nutritional / Prandial insulin per carb ratio of 1 unit per 2.5 grams CHO consumed PLAN FOR DISCHARGE: * to be determined PLAN FOR DISCHARGE: * HbA1c of 7.5% is likely adequate for patient based on age and comorbidities * Reasonable to continue home regimen at discharge provided patient's PO intake is near baseline
[2021-07-25] MEDS ORDERED: INSULIN HUMAN NPH SC ONE (12:00)
[2021-07-25 12:06] LABS: iSTAT Art Bld Gas pCO2 Correct 27 mmHg (35-46); iSTAT Art Bld Gas pH Corrected 7.469 (7.35-7.45); iSTAT Arterial Blood Gas HCO3 20 meg/L (19-24); iSTAT Arterial Blood Gas pCO2 27 mmHg (35-46); iSTAT Arterial Blood Gas pH 7.47 (7.35-7.45); iSTAT Arterial Blood Gas pO2 58 mmHg (80-95); iSTAT Arterial Blood Gas pO2 C 58; iSTAT Carbon Dioxide 20 mmol/L (24-31); iSTAT FiO2 70 %; iSTAT Hematocrit 32 % (37-47); iSTAT Hemoglobin 10.9 g/dl (12.0-16.0); iSTAT Potassium 4.3 mmol/L (3.3-5.0); iSTAT Site Art Line; iSTAT Sodium 143 mmol/L (135-144)
--- NOTE | 2021-07-25 12:12 | Electrocardiogram Report ---
Test Reason : Blood Pressure : / mmHG Vent. Rate : 079 BPM Atrial Rate : 110 BPM P-R Int : 000 ms QRS Dur : 084 ms QT Int : 382 ms P-R-T Axes : 000 015 237 degrees QTc Int : 438 ms Poor data quality, interpretation may be adversely affected Atrial fibrillation with occasional ventricular-paced complexes Abnormal ECG When compared with ECG of 23-JUL-2021 13:36, Vent. rate has increased BY 8 BPM Confirmed by Kang Alston ([id number]) on 07/25/2021 12:12:24 PM Referred By: REFERRED SELF Confirmed By:Kang Alston
--- NOTE | 2021-07-25 13:31 | Nephrology Consultation ---
Date of Consultation July 25, 2021 Assessment & Plan (1) ASPEN (acute kidney injury): Clinically consistent with ATN versus acute GN. Renal US reviewed -- no obstruction. Urine microscopy +WBC and RBC. No casts noted. Interestingly, no protein on dipstick. Electrolytes acceptable. Volume status reasonable. No emergent indication for dialysis. Prognosis guarded. I cannot exclude underlying acute GN such as ANCA mediated or anti-BM. Testing has been sent to the reference lab and I contacted the laboratory to expedite the results. The prognosis for renal vasculitis with possible pulmonary involvement is very concerning. I agree with aggressive use of methylprednisolone -- reviewed with the employee communications manager. I would also suggest a component of ATN regardless of what other factors may be contributing. AIN is less likely but cannot be excluded. COVID associated pneumonia and ASPEN is the most likely etiology. Appropriate supportive care is being provided. Diuretics PRN to encourage urine output. Monitor metabolic profile twice daily. Clinically not appropriate for kidney biopsy at this time. (2) CKD (chronic kidney disease) stage 3, GFR 30-59 ml/min: CKD III A1 attributed to DKD. Baseline creatinine ~1.5 mg/dL. Follows with Dr. Fountain as outpatient. (3) Hemoptysis: Imaging reviewed. Cannot exclude vasculitis. (4) COVID-19: Remains on methylprednisolone. (5) Respiratory failure with hypoxia: (6) Hyperparathyroidism: (7) Diabetes mellitus type 2: History of Present Illness Reason for Consultation: ASPEN Requesting Physician: Rickey Nunez MD Attending Physician: Rickey Nunez MD History of Present Illness Mrs. Anjali Gonzalez is a 80-year-old female with chronic kidney disease. She has CKD III with a baseline creatinine of ~1.5 mg/dL. Anjali follows in the CKD clinic with Dr. Fountain. CKD has been attributed to DKD. Medical history is notable for DM, hypertension, ASCVD s/p PTCA, and secondary hyperparathyroidism. Anjali was admitted to [facility] with COVID pneumonia. Nephrology consultation requested today for ASPEN with evidence of possible GN. The case was discussed with Dr. Galo this morning. Urine output reduced. Renal US did not demonstrate obstruction. Urine microscopy demonstrating >30 RBC/hpf and 5-10 WBC/hpf. Electrolytes acceptable. Anjali was resting comfortably in bed on high flow nasal cannula on my assessment. She had been resting on CPAP. Assessments were reviewed with the bedside nurse. Anjali opens her eyes and occasionally nods to questioning but did not provide any history or additional information. BP is being controlled with a nicardipine gtt. Anjali is receiving methylprednisolone 125 mg IV Q 6 hrs. IV Zosyn is also being provided. ESR on admission 90. Allergies Allergy/AdvReac Type Severity Reaction Status Date / Time sulfamethoxazole Allergy Intermediate RASH Verified 07/23/21 13:49 trimethoprim Allergy Intermediate RASH Verified 07/23/21 13:49 Bactrim Allergy Unknown RASH Verified 04/14/18 12:03 codeine AdvReac Mild nausea Verified 07/15/21 14:50 Home Medications Medication Instructions Recorded Confirmed Type allopurinol 300 mg tablet 300 mg PO DAILY #0 tab 05/03/12 07/15/21 History atorvastatin 80 mg tablet (Lipitor) 80 mg PO DAILY #0 tab 08/04/15 07/15/21 History insulin aspart U-100 100 unit/mL 10 unit SUBCUT QAM #0 04/07/17 07/15/21 History (3 mL) subcutaneous pen insulin aspart U-100 100 unit/mL 18 unit SUBCUT BID #0 04/07/17 07/15/21 History (3 mL) subcutaneous pen insulin glargine 100 unit/mL 26 unit SUBCUT PM #0 04/07/17 07/15/21 History subcutaneous solution (Lantus U-100 Insulin) lorazepam 2 mg tablet 2 mg PO HS #0 04/07/17 07/15/21 History amlodipine 5 mg tablet (Norvasc) 5 mg PO DAILY #0 tab 11/27/17 07/15/21 History insulin glargine 100 unit/mL 43 unit SUBCUT QAM #0 pen 04/14/18 07/15/21 History subcutaneous solution (Lantus U-100 Insulin) nitroglycerin 0.4 mg sublingual 0.4 mg SUBLINGUAL Q5M PRN #0 tab 04/16/19 07/15/21 History tablet (Nitrostat) potassium chloride 20 mEq 40 meq PO DAILY tab 04/16/19 07/15/21 History tablet,extended release spironolactone 25 mg tablet 12.5 mg PO DAILY tab 04/16/19 07/15/21 History (Aldactone) aspirin 81 mg tablet,delayed 81 mg PO DAILY 10/12/19 07/15/21 History release (Aspir-) metoprolol succinate 25 mg 25 mg PO DAILY 10/12/19 07/15/21 History tablet,extended release 24 hr (Toprol XL) torsemide 20 mg tablet 20 mg PO BID 10/12/19 07/15/21 History gabapentin 100 mg tablet 100 mg PO TID 05/22/21 07/15/21 History isosorbide dinitrate 20 mg tablet 20 mg PO BID 05/22/21 07/15/21 History polyethylene glycol 3350 17 gram 17 g PO DAILY 05/22/21 07/15/21 History oral powder packet (Miralax) benzonatate 200 mg capsule 200 mg PO TID PRN 07/15/21 07/15/21 History dexamethasone 6 mg tablet 6 mg PO DAILY 07/15/21 07/15/21 History Patient History Medical History Bradycardia Cataracts, bilateral Coronary artery disease Coronary artery disease Diabetes Edema Gout Hemoptysis Hyperparathyroidism Hypertension Kidney disease, chronic, stage IV (severe, EGFR 15-29 ml/min) Neuropathy Weakness Surgical History History of 3 sections History of total right knee replacement S/P angioplasty with stent Family History Mother Heart disease Diabetes Brother Diabetes Social History Smoking Status: Never smoker Hx Alcohol Use: No Hx Substance Use: No Preferred Language: Marshallese Communication Ability: Unable Dining Manager Required: No Beliefs That Will Affect Care: None marital status: / Current Living Situation: Alone Feels Safe at Home: Yes Assistive Devices: Oxygen - Continuous Review of Systems Review of Systems: Unobtainable due to cognitive status and Unobtainable due to reduced consciousness Physical Exam Constitutional: well developed and + ill appearing; no acute distress Eyes: no scleral abnormality and no corneal abnormality ENMT: Mouth: + dry oral mucous membranes; no oral mucosal abnormality Neck: normal visual inspection and trachea midline Respiratory: + tachypneic; no respiratory distress Auscultation: + diminished lung sounds and + rhonchi Cardiovascular: Rate/Rhythm: + tachycardic Heart Sounds: normal S1 and normal S2 Extremities: + edema Gastrointestinal (Abdomen): Inspection/Auscultation: normal bowel sounds Percussion/Palpation: abdomen soft Musculoskeletal: Extremities: no cyanosis and no clubbing Skin: normal turgor; no lesions Neurologic: Motor/Sensory: no tremor and no asterixis Results & Data ([facility]) Vital Signs (Past 12 Hours) Vital Signs Temp Pulse Resp BP Pulse Ox 07/25/21 12:00 37.0 C 91 H 25 H 138/86 90 07/25/21 11:00 88 23 120/69 91 07/25/21 10:45 98 H 28 H 91 07/25/21 10:00 95 H 27 H 91 07/25/21 09:00 87 21 92 07/25/21 08:00 37.1 C 85 23 146/82 H 92 07/25/21 07:00 102 H 22 92 07/25/21 06:55 93 H 25 H 92 07/25/21 06:00 88 93 07/25/21 05:30 89 93 07/25/21 05:00 92 H 93 07/25/21 04:30 93 H 94 07/25/21 04:00 95 H 93 07/25/21 03:39 36.9 C 07/25/21 03:30 87 22 93 07/25/21 03:00 96 H 94 07/25/21 02:30 94 H 94 07/25/21 02:00 87 94 07/25/21 01:30 87 95 Laboratory Results Laboratory Results - last 24 hr 07/24/21 07/24/21 07/24/21 05:35 16:20 16:20 WBC RBC Hgb POC Hgb Hct POC Hct MCV MCH MCHC RDW Std Deviation RDW Coeff of Favian Plt Count MPV Absolute Nucleated RBC Nucleated RBC % (auto) Sample Site POC pH POC pCO2 POC pO2 POC HCO3 POC Total CO2 POC Base Excess ABG pH (Temp Correct) ABG pCO2 (Temp Corrct POC ABG pO2 at Pt Temp POC ABG O2 Sat Edin Test O2 Delivery Device POC FiO2 POC Sodium Sodium 142 POC Potassium Potassium 4.1 Chloride 110 H Carbon Dioxide 21 Anion Gap 11.0 BUN 99 H Creatinine 2.17 H D Est Cr Clr Drug Dosing 22.7 Est GFR ( Amer) 24.3 Est GFR (Non-Af Amer) 21.0 BUN/Creatinine Ratio 45.6 H Glucose 183 H POC Glucose Calcium 9.1 Phosphorus Magnesium Procalcitonin 0.66 H Urine Color Urine Appearance Urine pH Ur Specific Newberry Urine Protein Urine Glucose (UA) Urine Ketones Urine Blood Urine Nitrite Urine Bilirubin Urine Urobilinogen Ur Leukocyte Esterase Urine WBC (Auto) Urine RBC (Auto) U Hyaline Cast (Auto) U Epithel Cells (Auto) Urine Bacteria (Auto) ANCA Pending Glomerular Base Memb Ab Pending 07/24/21 07/24/21 07/24/21 16:58 17:06 20:16 WBC RBC Hgb POC Hgb Hct POC Hct MCV MCH MCHC RDW Std Deviation RDW Coeff of Favian Plt Count MPV Absolute Nucleated RBC Nucleated RBC % (auto) Sample Site POC pH POC pCO2 POC pO2 POC HCO3 POC Total CO2 POC Base Excess ABG pH (Temp Correct) ABG pCO2 (Temp Corrct POC ABG pO2 at Pt Temp POC ABG O2 Sat Edin Test O2 Delivery Device POC FiO2 POC Sodium Sodium POC Potassium Potassium Chloride Carbon Dioxide Anion Gap BUN Creatinine Est Cr Clr Drug Dosing Est GFR ( Amer) Est GFR (Non-Af Amer) BUN/Creatinine Ratio Glucose POC Glucose 205 H 184 H Calcium Phosphorus Magnesium Procalcitonin Urine Color Dark Yellow Urine Appearance Clear Urine pH 5.0 Ur Specific Newberry 1.042 H Urine Protein Negative Urine Glucose (UA) Negative Urine Ketones Negative Urine Blood Negative Urine Nitrite Negative Urine Bilirubin Negative Urine Urobilinogen Negative Ur Leukocyte Esterase Trace H Urine WBC (Auto) 5-10 H Urine RBC (Auto) >30 H U Hyaline Cast (Auto) 1-5 U Epithel Cells (Auto) >30 H Urine Bacteria (Auto) Negative ANCA Glomerular Base Memb Ab 07/25/21 07/25/21 07/25/21 00:10 03:55 06:34 WBC 17.24 H RBC 3.72 L Hgb 11.7 L POC Hgb Hct 34.9 L POC Hct MCV 93.8 MCH 31.5 MCHC 33.5 RDW Std Deviation 50.7 H RDW Coeff of Favian 14.8 H Plt Count 191 MPV 12.6 H Absolute Nucleated RBC 0.03 H Nucleated RBC % (auto) 0.2 Sample Site POC pH POC pCO2 POC pO2 POC HCO3 POC Total CO2 POC Base Excess ABG pH (Temp Correct) ABG pCO2 (Temp Corrct POC ABG pO2 at Pt Temp POC ABG O2 Sat Edin Test O2 Delivery Device POC FiO2 POC Sodium Sodium POC Potassium Potassium Chloride Carbon Dioxide Anion Gap BUN Creatinine Est Cr Clr Drug Dosing Est GFR ( Amer) Est GFR (Non-Af Amer) BUN/Creatinine Ratio Glucose POC Glucose 178 H 175 H Calcium Phosphorus Magnesium Procalcitonin Urine Color Urine Appearance Urine pH Ur Specific Newberry Urine Protein Urine Glucose (UA) Urine Ketones Urine Blood Urine Nitrite Urine Bilirubin Urine Urobilinogen Ur Leukocyte Esterase Urine WBC (Auto) Urine RBC (Auto) U Hyaline Cast (Auto) U Epithel Cells (Auto) Urine Bacteria (Auto) ANCA Glomerular Base Memb Ab 07/25/21 07/25/21 07/25/21 06:34 07:22 11:39 WBC RBC Hgb POC Hgb Hct POC Hct MCV MCH MCHC RDW Std Deviation RDW Coeff of Favian Plt Count MPV Absolute Nucleated RBC Nucleated RBC % (auto) Sample Site POC pH POC pCO2 POC pO2 POC HCO3 POC Total CO2 POC Base Excess ABG pH (Temp Correct) ABG pCO2 (Temp Corrct POC ABG pO2 at Pt Temp POC ABG O2 Sat Edin Test O2 Delivery Device POC FiO2 POC Sodium Sodium 143 POC Potassium Potassium 4.2 Chloride 111 H Carbon Dioxide 20 L Anion Gap 12.0 H BUN 108 H Creatinine 2.75 H D Est Cr Clr Drug Dosing 17.9 Est GFR ( Amer) 18.3 Est GFR (Non-Af Amer) 15.8 BUN/Creatinine Ratio 39.1 H Glucose 176 H POC Glucose 192 H 183 H Calcium 9.0 Phosphorus 3.1 Magnesium 3.5 H Procalcitonin Urine Color Urine Appearance Urine pH Ur Specific Newberry Urine Protein Urine Glucose (UA) Urine Ketones Urine Blood Urine Nitrite Urine Bilirubin Urine Urobilinogen Ur Leukocyte Esterase Urine WBC (Auto) Urine RBC (Auto) U Hyaline Cast (Auto) U Epithel Cells (Auto) Urine Bacteria (Auto) ANCA Glomerular Base Memb Ab 07/25/21 11:52 WBC RBC Hgb POC Hgb 10.9 L Hct POC Hct 32 L MCV MCH MCHC RDW Std Deviation RDW Coeff of Favian Plt Count MPV Absolute Nucleated RBC Nucleated RBC % (auto) Sample Site Art Line POC pH 7.47 H POC pCO2 27 L POC pO2 58 L POC HCO3 20 POC Total CO2 20 L POC Base Excess -4.0 ABG pH (Temp Correct) 7.469 H ABG pCO2 (Temp Corrct 27 L POC ABG pO2 at Pt Temp 58 POC ABG O2 Sat 92.0 Edin Test NA O2 Delivery Device BIPAP POC FiO2 70 POC Sodium 143 Sodium POC Potassium 4.3 Potassium Chloride Carbon Dioxide Anion Gap BUN Creatinine Est Cr Clr Drug Dosing Est GFR ( Amer) Est GFR (Non-Af Amer) BUN/Creatinine Ratio Glucose POC Glucose Calcium Phosphorus Magnesium Procalcitonin Urine Color Urine Appearance Urine pH Ur Specific Newberry Urine Protein Urine Glucose (UA) Urine Ketones Urine Blood Urine Nitrite Urine Bilirubin Urine Urobilinogen Ur Leukocyte Esterase Urine WBC (Auto) Urine RBC (Auto) U Hyaline Cast (Auto) U Epithel Cells (Auto) Urine Bacteria (Auto) ANCA Glomerular Base Memb Ab PG Care Time/CCT Total # of Minutes Spent Total Time Spent with Patient: Total time spent is greater than 50% in coordination of care (as documented) at patient's floor/unit and/or counseling patient: Coding Level of Care Code 94189 Inpt Consult Level 4 Diagnoses Hemoptysis R04.2 COVID-19 U07.1 Respiratory failure with hypoxia J96.01 Chronicity: acute CKD (chronic kidney disease) stage 3, GFR 30-59 ml/min N18.3 ASPEN (acute kidney injury) N17.9 Hyperparathyroidism E21.3 Diabetes mellitus type 2 E11.9 (1) Respiratory failure with hypoxia Chronicity: acute Qualified Code(s): J96.01 - Acute respiratory failure with hypoxia
[2021-07-25] MEDS: methylPREDNISolone 125 MG in SYRINGE 0 ML IV SCH ×2 (17:47→23:33)
--- NOTE | 2021-07-25 19:13 | Hospitalist Progress Note ---
Date of Service July 25, 2021 Assessment & Plan (1) Respiratory failure with hypoxia: (2) COVID-19: Plan: Patient vaccinated fully against Covid, last dose November 2020 Plan: Acute on chronic hypoxic respiratory failure ARDS secondary to COVID-19 Vaccinated against Covid, last dose November 2020 -CXR:Extensive bilateral airspace opacities which favor an infectious process such as viral pneumonia. Radiographic follow-up to ensure resolution is recommended. Procalcitonin negative Not a candidate for remdesivir Continue dexamethasone course Appreciate critical care input Tube feeds And respiratory distress post extubation, developed hemoptysis Heparin SQ held due to Hemoptysis CTA today showed extensive groundglass opacities are present throughout both lungs characteristic of a viral type pneumonitis and Covid 19 pneumonia. Continue Solumedrol for possible diffuse alveolar hemorrhage Serological work-up for autoimmune disease ordered by Critical care Low threshold to reintubate if needed Continue Zosyn Concern for Vasculitis Prognosis guarded Currently on CPAP Need to address goals of care Possible flash pulmonary edema Lasix as needed on nicardipine drip Atrial Fibrillation Rate controlled Monitor Mild hyponatremia Sodium: 134>>140> 142>143 Sodium level normalized ASPEN on CKD III Baseline 1.5-1.7; presenting creatinine 1.93 Hold nephrotoxic including torsemide and spironolactone Cr: 2.75 ATN versus acute glomerulonephritis Appreciate nephrology input Prognosis guarded Monitor renal function CAD Continue statin Aspirin held DM II SSI, glycemic pharmacy DVT Px: Heparin SQ--Held due to Hemoptysis CODE STATUS Full code Needs to readdress goals of care, CODE STATUS Admission and Anticipated Discharge Date Admission Date: July 15, 2021 Subjective Patient is seen and examined at bedside Alert, awake follows simple commands Unable to provide any history Discussed with ICU team today Prognosis is guarded Renal function worsening Currently on CPAP Review of Systems Review of Systems: All systems reviewed & are unremarkable except as noted in Subjective Physical Exam Physical Exam: Physical Exam: Vitals signs as noted above General Appearance:Obese, Sedated and intubated Head: normocephalic, Atraumatic Eyes: normal inspection Neck: supple, Trachea midline Respiratory/Chest: Decreased course breath sounds Cardiovascular: Irregularly irregular,No murmur Abdomen/GI:Soft, Non tender, Bowel sounds present Extremities/Musculoskeletal:normal inspection, no edema Neurologic/Psych:Intubated Skin: normal color, warm Results & Data Results & Data ([facility]) Vital Signs (Past 12 Hours) Vital Signs Temp Pulse Pulse Resp BP BP Pulse Ox 07/25/21 18:00 104 H 35 H 87 L 07/25/21 17:00 37.1 C 114 H 34 H 88 L 07/25/21 16:01 89 34 H 97 07/25/21 16:00 98 H 36 H 89 L 07/25/21 15:00 107 H 35 H 84 L 07/25/21 14:54 36.8 C 99 H 20 157/40 H 86 L 07/25/21 14:00 90 24 153/49 H 87 L 07/25/21 13:00 82 22 89 L 07/25/21 12:00 37.0 C 91 H 25 H 138/86 90 07/25/21 11:00 88 23 120/69 91 07/25/21 10:45 98 H 28 H 91 07/25/21 10:00 95 H 27 H 91 07/25/21 09:00 87 21 92 07/25/21 08:00 37.1 C 85 23 146/82 H 92 Laboratory Results Short CBC 07/25/21 Range/Units 06:34 WBC 17.24 H (4.8-10.8) K/uL Hgb 11.7 L (12.0-16.0) g/dL Hct 34.9 L (37-47) % Plt Count 191 (130-400) K/uL BMP 07/25/21 06:34 Sodium 143 Potassium 4.2 Chloride 111 H Carbon Dioxide 20 L BUN 108 H Creatinine 2.75 H D Glucose 176 H Calcium 9.0 (1) Respiratory failure with hypoxia Chronicity: acute Qualified Code(s): J96.01 - Acute respiratory failure with hypoxia
[2021-07-25] MEDS ORDERED: RAPID SEQUENCE INDUCTION BAG ONE (20:02)
[2021-07-25] MEDS ORDERED: PROPOFOL IV EMULSION 10 MG/ML 100 ML VIAL IV ONE (20:20)
[2021-07-25] MEDS ORDERED: STAT IV Infusion **Titration per Protocol STA ×2 (20:21→21:09)
[2021-07-25] MEDS ORDERED: PROPOFOL BOLUS FROM BAG IV PRN (20:21)
[2021-07-25] MEDS: propofoL 1,000 MG/100 ML VIAL IV SCH (20:30)
[2021-07-25] MEDS: fentaNYL DRIP 1,250 MCG/250 ML BAG IV SCH (20:35)
[2021-07-25] MEDS ORDERED: INSULIN HUMAN NPH SC SCH (21:00)
[2021-07-25] MEDS ORDERED: CISATRACURIUM BOLUS FROM BAG IV STA (21:09)
--- NOTE | 2021-07-25 21:09 | Communication Note ---
Date of Service: July 25, 2021 Was notified by the patient's RN, that the patient's oxygen saturation was in the low to mid 80s. Presented to evaluate the patient and she was very tac hypneic with respiratory rate in the 30s and tripoding with labored breathing. I did speak with the patient's daughter and POA, as the patient is encephalopathic. Her condition and CODE STATUS were addressed and at this time they would like to remain full code and proceed with reintubation. Dr. Roe presented to the room and intubated the patient without complication. She remained hypoxic on FiO2 100% on ventilator and decision was made to prone. Currently weaning vent following proning and plan to proceed with proning for the next 16 to 20 hours. Patient's daughter was updated post intubation. CRITICAL CARE TIME - I have personally spent 45 minutes of critical care time in the direct management of this patient. This is a life/limb threatening event. This includes time spent evaluating patient, direct bedside care, chart review, placing orders, interpretation of diagnostic studies, discussion with consultants, patient, and family members, as well as other required patient management activities. This time is exclusive of all separately billable procedures, and teaching time and separate from and in addition to any other critical care service time. Coding Level of Care Code Critical Care mae addt'l 30 min
--- NOTE | 2021-07-25 21:27 | Emergency Department Note ---
ED Visit Note Endotracheal Intubation Indication: respirpatory failure. Called to COVID unit by ICU team for intubation. The patient was on 100% oxygen via BIPAP prior to the procedure. Suction, airway equipment, RSI drugs, respiratory equipment, and appropriate personnel were prepared prior to the initiation of the procedure. A time out was taken. Induction was performed with ketamine and succinylcholine. After observing the clinical benefit of the medications, the airway was easily visualized utilizing a glidescope. A 7.5 size ETT tube was placed atraumatically to 25 cm using standard technique. The cuff inflated without signs of malfunction. There were bilateral breath sounds, positive colormetric change, no gastric sounds, a good capnography waveform. There were no complications. . : Respiratory failure with hypoxia Qualifiers: Chronicity: acute Qualified Code(s): J96.01 - Acute respiratory failure with hypoxia
[2021-07-25 21:41] LABS: iSTAT Arterial Blood Gas HCO3 20 meg/L (19-24); iSTAT Arterial Blood Gas pCO2 44 mmHg (35-46); iSTAT Arterial Blood Gas pH 7.26 (7.35-7.45); iSTAT Arterial Blood Gas pO2 82 mmHg (80-95); iSTAT Carbon Dioxide 21 mmol/L (24-31); iSTAT FiO2 100 %; iSTAT Site Art Line
[2021-07-25] MEDS: ARTIFICIAL TEARS OP OINT 3.5 GM TUBE OP SCH (23:36)
[2021-07-26] MEDS: INSULIN ASPART 100 UNITS/ML 3 ML PEN SC SCH ×7 (00:17→23:52)
[2021-07-26] MEDS: propofoL 1,000 MG/100 ML VIAL IV SCH ×9 (01:35→23:48)
[2021-07-26] MEDS: CISATRACURIUM BESYLATE 40 MG in 0.9 % SODIUM CHLORIDE 80 ML IV SCH ×2 (03:49→07:53)
[2021-07-26] MEDS: ARTIFICIAL TEARS OP OINT 3.5 GM TUBE OP SCH ×7 (05:30→23:50)
[2021-07-26 05:32] LABS: iSTAT Art Bld Gas pCO2 Correct 29 mmHg (35-46); iSTAT Art Bld Gas pH Corrected 7.416 (7.35-7.45); iSTAT Arterial Blood Gas HCO3 18 meg/L (19-24); iSTAT Arterial Blood Gas pCO2 29 mmHg (35-46); iSTAT Arterial Blood Gas pH 7.42 (7.35-7.45); iSTAT Arterial Blood Gas pO2 74 mmHg (80-95); iSTAT Arterial Blood Gas pO2 C 75; iSTAT Carbon Dioxide 19 mmol/L (24-31); iSTAT FiO2 50 %; iSTAT Hematocrit 30 % (37-47); iSTAT Hemoglobin 10.2 g/dl (12.0-16.0); iSTAT Potassium 4.4 mmol/L (3.3-5.0); iSTAT Site Art Line; iSTAT Sodium 142 mmol/L (135-144)
[2021-07-26] MEDS: methylPREDNISolone 125 MG in SYRINGE 0 ML IV SCH ×4 (05:35→23:49)
[2021-07-26] MEDS: niCARdipine 25 MG in SODIUM CHLORIDE 0.9% 240 ML IV SCH ×2 (07:25→07:26)
[2021-07-26 07:41] LABS: Hematocrit (blood only) 33.1 % (37-47); Hemoglobin 10.9 g/dL (12.0-16.0); Mean Corpuscular Hemoglobin 31.6 pg (25-34); Mean Corpuscular Hgb Conc 32.9 g/dL (32-36); Mean Corpuscular Volume 95.9 fL (80-100); Mean Platelet Volume 12.4 fL (7.4-10.4); Platelet Count 134 K/uL (130-400); RDW Coefficient of Variation 15.2 % (11.5-14.5); RDW Standard Deviation 53.2 fL (36.4-46.3); Red Blood Count 3.45 M/uL (4.2-5.4); White Blood Count 19.03 K/uL (4.8-10.8)
[2021-07-26] MEDS: PANTOprazole 40 MG in SYRINGE 0 ML IV SCH ×2 (07:53→20:33)
[2021-07-26] MEDS: POLYETHYLENE (MIRALAX) 17 GM PACK PO SCH (07:54)
[2021-07-26] MEDS: MULTI VIT W/MINERALS LIQUID 15 ML UDP NG SCH (07:54)
[2021-07-26] MEDS: GABAPENTIN 250 MG/5 ML 470 ML BTL PO SCH ×3 (07:54→20:26)
[2021-07-26] MEDS: ATORVASTATIN 40 MG TAB PO SCH (07:54)
[2021-07-26] MEDS: INSULIN GLARGINE SOLOSTAR 100 UNITS/ML 3 ML PEN SC SCH (08:16)
[2021-07-26] MEDS: PIPERACILLIN/TAZOBACTAM 4.5 GM in DEXTROSE 5% 100 ML IV SCH ×2 (08:17→20:33)
[2021-07-26 08:20] LABS: BUN Creatinine Ratio 31.3 (10-20); Calcium 9.2 mg/dl (8.5-10.1); Est GFR (African American) 11.3 ml/min; Est GFR (Non-African American) 9.8 ml/min; Magnesium 3.6 mg/dl (1.8-2.4); Phosphorus 3.6 mg/dl (2.5-4.9); Potassium 4.5 mmol/L (3.5-5.1)
[2021-07-26] MEDS ORDERED: INSULIN HUMAN NPH SC SCH (09:00)
--- NOTE | 2021-07-26 09:05 | XRay Report ---
XR chest 1V portable CLINICAL HISTORY: Respiratory failure. COMPARISON STUDY: Chest CT July 23, 2021. Chest radiograph July 25, 2021 at 8:23 PM. FINDINGS: Tip of the endotracheal tube is likely at the ashlee. The tube could be withdrawn 2 cm. Tip of nasogastric tube is below the lower aspect of this image but is at least within the distal body o f the stomach. There is no pneumothorax or pleural effusion. Extensive bilateral airspace opacities h ave significantly progressed since prior examination. These are predominantly perihilar in distributi on. Cardiomegaly is again noted. Left subclavian pacer is in place. IMPRESSION: 1. Tip of endotracheal tube likely at the ashlee. The tube could be withdrawn 2 cm. This finding will be called/faxed to the ordering provider at time of dictation. 2. Significant progression of extensive bilateral airspace opacities. The findings favor pneumonia. P ulmonary edema could appear similar. ACT 112: Negative or not required by law. Electronically signed by: Carroll Rodriguez M.D. 07/26/2021 9:04 AM
[2021-07-26] MEDS ORDERED: FUROSEMIDE 40 MG/4 ML VIAL IV ONE ×2 (09:44→16:16)
[2021-07-26] MEDS: fentaNYL DRIP 1,250 MCG/250 ML BAG IV SCH ×2 (09:44→19:13)
--- NOTE | 2021-07-26 10:03 | Critical Care Progress Note ---
Date of Service July 26, 2021 Assessment & Plan (1) COVID-19: (2) Respiratory failure with hypoxia: (3) CKD (chronic kidney disease) stage 3, GFR 30-59 ml/min: (4) Hx of heart artery stent: (5) Hemoptysis: Plan: Neurologic: Intubated and Sedated for mechanical ventilation - Intubated overnight, continue with propofol and fentanly - discontinue pharmacological paralytic - bolus dosing if needed Pulmonary: COVID 19, ARDS, hypoxic respiratory failure requiring intubation and mechanical ventilation Hypoxic respiratory failure secondary to Covid pneumonia. Patient extubated, but had respiratory distress post extubation- BIPAP failed and re-intubated on 07/25/21 and then proned. She also has evidence of hemoptysis. Worsening of biilateral interstitial infiltrates and groundglass opacity seen with small b ilateral effusions. Increase methylprednisone to 125 mg q6h for possibility of diffuse alveolar hemorrhage. OLI cascade ordered to evaluate for autoimmune process. Beta glucan ordered as well to evaluate for possible fungal process is still pending. She is proned for severe ARDS and will be supinated at 1500 Cardiovascular: HTN, HFpEF, CAD, pacemaker She has an extensive history of coronary artery disease. Echo with LVEF of 55 to 60%. Mild aortic regurgitation. Severe mitral annular calcification. Moderate mitral regurgitation. - She remains off pressors, her Cardene was discontinued as with sedation her BP is not elevated Gastrointestinal: OGT placed following intubation. Patient will be supinated at 1500 Renal: CKD III, ASPEN III, ATN vs. AGN History of CKD stage III. Renal consulted. Acute kidney injury possibly related vasculitis vs ischemic ATN. Renal US without obstruction. - Lasix 80 mg now as she had low urine output overnight and her urine is consistent with a likely ATN. IF she turns anuric or have the inability to kailurese she will need dialysis- however this is unlikely to reverse her underlying ARDS/COVID/MODS Infectious disease: Remains on Zosyn Procal slightly increased. Beta glucan sent as noted above. Continue Zosyn. persistent elevation of WBC without fevers - MRSA negative on admit swab Hematologic: Hemoptysis resolved. Hemoglobin stable. INR within normal limits. PTT remains mildly elevated. Endocrine: DM II Hyperglycemia management per ICU pharmacist. VTE prophylaxis: Hold all anticoagulation and continue SCDs. CODE STATUS: Full code. Disposition: Remain in the ICU. I have personally spent 60 minutes of critical care time in the direct management of this patient. This is a life/limb threatening event. This includes time spent evaluating patient, direct bedside care, chart review, placing orders, interpretation of diagnostic studies, discussion with consultants, patient, and family members, as well as other required patient management activities. This time is exclusive of all separately billable procedures, and teaching time and separate from and in addition to any other critical care service time. Thank you for allowing us to participate in the care of this patient. Admission and Anticipated Discharge Date Admission Date: July 15, 2021 Subjective HD #11, ICU day #7- Patient was re-intubated last night for hypoxic respiratory failure after failing a Bi-PAP following extubation earlier in the week. She was remained refractory hypoxemic, so she was proned overnight. Complicating her picture is the fact that she has had hemoptysis and acute worsening of her renal failure raising the possibility of DAH, AGN, and ATN. She had been started on high dose steroids of methylprednisone 125mg q6h. This mornig she is still requiring higher levels of Peep and Fio2 and continues to show further worsening of her organ dysfucntion. Her CXR is worse this morning in regards to her bilateral opacities and her renal indices have also worsened. Her urine output was low overnight and her BUN has increased to 128 this morning and [employer] is up to 4.09. HCO3 is 18 and electrolytes are stable. Will attempt Lasix at 80 mg IV x1 for response. Will disucss case further with Nephrology. She continues to not respond to therapy. Review of Systems Review of Systems: Unable to perform- she is intubated, sedated, and paralyzed. Physical Exam Physical Exam: Constitutional: proned N: Proned and pharmacologically sedated and paralyzed. Respiratory: Coarse lung sounds bilaterally. Diminished throughout Cardiovascular: Regular rate and rhythm, skin warm and dry, peripheral pulses strong Gastrointestinal: Normal bowel sounds, soft, nontender and nondistended. No hepatosplenomegaly noted. Musculoskeletal: bony prominences are padded and proned Skin: No rashes, warm dry and intact. Neurologic: Intubated, sedated. Results & Data Results & Data ([facility]) Vital Signs (Past 12 Hours) Vital Signs Temp Pulse Resp Pulse Ox 07/26/21 07:03 67 30 H 94 07/26/21 07:00 70 30 H 94 07/26/21 06:45 72 30 H 94 07/26/21 06:30 67 30 H 95 07/26/21 06:15 74 30 H 95 07/26/21 06:00 72 30 H 95 07/26/21 05:45 73 30 H 95 07/26/21 05:30 66 30 H 95 07/26/21 05:25 36.8 C 07/26/21 05:15 62 30 H 94 07/26/21 05:00 65 30 H 96 07/26/21 04:45 67 30 H 95 07/26/21 04:30 69 30 H 95 07/26/21 04:15 72 30 H 96 07/26/21 04:00 67 31 H 95 07/26/21 03:45 80 30 H 100 07/26/21 03:34 82 32 H 96 07/26/21 03:30 74 30 H 95 07/26/21 03:15 75 34 H 95 07/26/21 03:00 75 31 H 95 07/26/21 02:45 85 30 H 95 07/26/21 02:30 70 32 H 95 07/26/21 02:15 85 35 H 95 07/26/21 02:00 89 33 H 95 07/26/21 01:45 81 30 H 95 07/26/21 01:44 37.1 C 07/26/21 01:30 80 21 95 07/26/21 01:15 81 30 H 94 07/26/21 01:00 86 33 H 95 07/26/21 00:45 87 32 H 94 07/26/21 00:30 91 H 30 H 95 07/26/21 00:15 94 H 30 H 93 07/26/21 00:00 92 H 34 H 94 07/25/21 23:45 85 34 H 94 07/25/21 23:30 82 31 H 94 07/25/21 23:15 89 31 H 92 07/25/21 23:00 83 31 H 92 07/25/21 22:45 88 31 H 92 07/25/21 22:30 88 33 H 92 07/25/21 22:15 89 30 H 91 07/25/21 22:00 97 H 30 H 93 Laboratory Results Abnormal lab results 07/25/21 07/25/21 07/25/21 Range/Units 11:39 11:52 17:26 WBC (4.8-10.8) K/uL RBC (4.2-5.4) M/uL Hgb (12.0-16.0) g/dL POC Hgb 10.9 L (12.0-16.0) g/dl Hct (37-47) % POC Hct 32 L (37-47) % RDW Std Deviation (36.4-46.3) fL RDW Coeff of Favian (11.5-14.5) % MPV (7.4-10.4) fL POC pH 7.47 H (7.35-7.45) POC pCO2 27 L (35-46) mmHg POC pO2 58 L (80-95) mmHg POC HCO3 (19-24) reinier/L POC Total CO2 20 L (24-31) mmol/L ABG pH (Temp Correct) 7.469 H (7.35-7.45) ABG pCO2 (Temp Corrct 27 L (35-46) mmHg Chloride (98-107) mmol/L Carbon Dioxide (21-32) mmol/L Anion Gap (3-11) BUN (7-18) mg/dl Creatinine (0.6-1.2) mg/dl BUN/Creatinine Ratio (10-20) Glucose (70-99) mg/dl POC Glucose 183 H 205 H (70-99) mg/dl POC Glucose (other) (70-99) mg/dl Magnesium (1.8-2.4) mg/dl 07/25/21 07/25/21 07/26/21 Range/Units 21:03 21:07 00:15 WBC (4.8-10.8) K/uL RBC (4.2-5.4) M/uL Hgb (12.0-16.0) g/dL POC Hgb (12.0-16.0) g/dl Hct (37-47) % POC Hct (37-47) % RDW Std Deviation (36.4-46.3) fL RDW Coeff of Favian (11.5-14.5) % MPV (7.4-10.4) fL POC pH 7.26 L (7.35-7.45) POC pCO2 (35-46) mmHg POC pO2 (80-95) mmHg POC HCO3 (19-24) reinier/L POC Total CO2 21 L (24-31) mmol/L ABG pH (Temp Correct) (7.35-7.45) ABG pCO2 (Temp Corrct (35-46) mmHg Chloride (98-107) mmol/L Carbon Dioxide (21-32) mmol/L Anion Gap (3-11) BUN (7-18) mg/dl Creatinine (0.6-1.2) mg/dl BUN/Creatinine Ratio (10-20) Glucose (70-99) mg/dl POC Glucose 205 H (70-99) mg/dl POC Glucose (other) 214 H (70-99) mg/dl Magnesium (1.8-2.4) mg/dl 07/26/21 07/26/21 07/26/21 Range/Units 03:48 05:07 06:19 WBC 19.03 H (4.8-10.8) K/uL RBC 3.45 L (4.2-5.4) M/uL Hgb 10.9 L (12.0-16.0) g/dL POC Hgb 10.2 L (12.0-16.0) g/dl Hct 33.1 L (37-47) % POC Hct 30 L (37-47) % RDW Std Deviation 53.2 H (36.4-46.3) fL RDW Coeff of Favian 15.2 H (11.5-14.5) % MPV 12.4 H (7.4-10.4) fL POC pH (7.35-7.45) POC pCO2 29 L (35-46) mmHg POC pO2 74 L (80-95) mmHg POC HCO3 18 L (19-24) reinier/L POC Total CO2 19 L (24-31) mmol/L ABG pH (Temp Correct) (7.35-7.45) ABG pCO2 (Temp Corrct 29 L (35-46) mmHg Chloride (98-107) mmol/L Carbon Dioxide (21-32) mmol/L Anion Gap (3-11) BUN (7-18) mg/dl Creatinine (0.6-1.2) mg/dl BUN/Creatinine Ratio (10-20) Glucose (70-99) mg/dl POC Glucose 175 H (70-99) mg/dl POC Glucose (other) (70-99) mg/dl Magnesium (1.8-2.4) mg/dl 07/26/21 07/26/21 Range/Units 06:19 08:07 WBC (4.8-10.8) K/uL RBC (4.2-5.4) M/uL Hgb (12.0-16.0) g/dL POC Hgb (12.0-16.0) g/dl Hct (37-47) % POC Hct (37-47) % RDW Std Deviation (36.4-46.3) fL RDW Coeff of Favian (11.5-14.5) % MPV (7.4-10.4) fL POC pH (7.35-7.45) POC pCO2 (35-46) mmHg POC pO2 (80-95) mmHg POC HCO3 (19-24) reinier/L POC Total CO2 (24-31) mmol/L ABG pH (Temp Correct) (7.35-7.45) ABG pCO2 (Temp Corrct (35-46) mmHg Chloride 113 H (98-107) mmol/L Carbon Dioxide 18 L (21-32) mmol/L Anion Gap 13.0 H (3-11) BUN 128 H (7-18) mg/dl Creatinine 4.09 H D (0.6-1.2) mg/dl BUN/Creatinine Ratio 31.3 H (10-20) Glucose 140 H (70-99) mg/dl POC Glucose 162 H (70-99) mg/dl POC Glucose (other) (70-99) mg/dl Magnesium 3.6 H (1.8-2.4) mg/dl Coding Level of Care Code Critical Care 1st 30-74 mins Diagnoses COVID-19 U07.1 Respiratory failure with hypoxia J96.01 Chronicity: acute CKD (chronic kidney disease) stage 3, GFR 30-59 ml/min N18.3 Hx of heart artery stent Z95.5 Hemoptysis R04.2 (1) Respiratory failure with hypoxia Chronicity: acute Qualified Code(s): J96.01 - Acute respiratory failure with hypoxia
--- NOTE | 2021-07-26 11:26 | XRay Report ---
XR chest 1V portable HISTORY: Shortness of breath. Respiratory failure. intubation COMPARISON: Chest 07/25/2021. FINDINGS: Interval placement of endotracheal tube which terminates at the level of the ashlee. This s hould be pulled back by approximately 3 cm. Nasogastric tube terminates below the diaphragm. The tip is not included on this study. Right jugular central venous catheter terminates at the distal SVC. Th ere is left-sided pacemaker. No pneumothorax. Trace bilateral pleural effusions. Extensive bilateral airspace opacities persist. This is consistent with a pneumonia. IMPRESSION: 1. Endotracheal tube terminates at the level the ashlee. This should be pulled back by approximately 3 cm. 2. Extensive bilateral airspace opacities persist. 3. These findings were called/faxed to the referring physician following dictation. ACT 112: Negative or not required by law. Electronically signed by: Stevo Alvarez M.D. 07/26/2021 11:25 AM
--- NOTE | 2021-07-26 11:30 | Nephrology Progress Note ---
Date of Service July 26, 2021 Assessment & Plan (1) ASPEN (acute kidney injury): Plan: Clinically consistent with ATN versus acute GN. Renal US reviewed -- no obstruction. Urine microscopy +WBC and RBC. No casts noted. Interestingly, no protein on dipstick. Oligoanuric approaching the need for INTENSIVE CARE MEDICINE SPECIALIST. The patient's daughter expressed some reservations regarding moving forward. I have discussed with the ICU team. Possible HD catheter placement today, if consistent with goals of care; I anticipate that dialysis would be required tomorrow. Electrolytes acceptable. Volume status reasonable. Prognosis guarded. I cannot exclude underlying acute GN such as ANCA mediated or anti-BM. Testing has been sent to the reference lab and I contacted the laboratory to expedite the results. The prognosis for renal vasculitis with possible pulmonary involvement is very concerning. Clinically, these would be less likely. I agree with aggressive use of methylprednisolone. I would also suggest a component of ATN regardless of what other factors may be contributing. AIN is less likely but cannot be excluded. COVID associated pneumonia and ASPEN is the most likely etiology. Appropriate supportive care is being provided. Diuretics PRN to encourage urine output. Furosemide 80 mg IV provided this AM. Monitor metabolic profile twice daily. Clinically not appropriate for kidney biopsy at this time. (2) CKD (chronic kidney disease) stage 3, GFR 30-59 ml/min: Plan: CKD III A1 attributed to DKD. Baseline creatinine ~1.5 mg/dL. Follows with Dr. Fountain as outpatient. I will discuss the plan of care with Dr. Fountain tomorrow at family's request. (3) Hemoptysis: Plan: Imaging reviewed. Cannot exclude vasculitis. (4) COVID-19: Plan: Remains on methylprednisolone 125 mg Q 6 hrs. (5) Respiratory failure with hypoxia: (6) Hyperparathyroidism: (7) Diabetes mellitus type 2: Admission and Anticipated Discharge Date Admission Date: July 15, 2021 Subjective Intubated overnight. Vasopressor support provided but now weaned off. Prone ventilation provided overnight. Oligoanuric. I discussed the plan of care with the ICU team this AM I called and reviewed the patient's status and plan of care with her daughter, Catherine by phone this morning. Review of Systems Review of Systems: Unobtainable due to endotracheal tube Physical Exam Constitutional: + ill appearing and + mechanically ventilated; no acute distress Eyes: + anicteric sclerae; no corneal abnormality ENMT: ETT Neck: normal visual inspection and trachea midline Respiratory: symmetric chest movement Auscultation: + rhonchi Cardiovascular: Rate/Rhythm: regular rate Heart Sounds: normal S1 and normal S2 Extremities: + edema Gastrointestinal (Abdomen): Inspection/Auscultation: normal bowel sounds Percussion/Palpation: abdomen soft Musculoskeletal: Extremities: no cyanosis and no clubbing Skin: normal turgor; no lesions Neurologic: Motor/Sensory: no tremor and no asterixis Psychiatric: sedated unresponsive Results & Data ([facility]) Vital Signs (Past 12 Hours) Vital Signs Temp Pulse Resp Pulse Ox 07/26/21 11:00 36.6 C 69 26 H 93 07/26/21 10:00 69 26 H 92 07/26/21 09:00 72 26 H 92 07/26/21 08:00 36.5 C 74 31 H 89 L 07/26/21 07:03 67 30 H 94 07/26/21 07:00 70 30 H 94 07/26/21 06:45 72 30 H 94 07/26/21 06:30 67 30 H 95 07/26/21 06:15 74 30 H 95 07/26/21 06:00 72 30 H 95 07/26/21 05:45 73 30 H 95 07/26/21 05:30 66 30 H 95 07/26/21 05:25 36.8 C 07/26/21 05:15 62 30 H 94 07/26/21 05:00 65 30 H 96 07/26/21 04:45 67 30 H 95 07/26/21 04:30 69 30 H 95 07/26/21 04:15 72 30 H 96 07/26/21 04:00 67 31 H 95 07/26/21 03:45 80 30 H 100 07/26/21 03:34 82 32 H 96 07/26/21 03:30 74 30 H 95 07/26/21 03:15 75 34 H 95 07/26/21 03:00 75 31 H 95 07/26/21 02:45 85 30 H 95 07/26/21 02:30 70 32 H 95 07/26/21 02:15 85 35 H 95 07/26/21 02:00 89 33 H 95 07/26/21 01:45 81 30 H 95 07/26/21 01:44 37.1 C 07/26/21 01:30 80 21 95 07/26/21 01:15 81 30 H 94 07/26/21 01:00 86 33 H 95 07/26/21 00:45 87 32 H 94 07/26/21 00:30 91 H 30 H 95 07/26/21 00:15 94 H 30 H 93 07/26/21 00:00 92 H 34 H 94 07/25/21 23:45 85 34 H 94 07/25/21 23:30 82 31 H 94 Laboratory Results Laboratory Results - last 24 hr 07/25/21 07/25/21 07/25/21 11:39 11:52 17:26 WBC RBC Hgb POC Hgb 10.9 L Hct POC Hct 32 L MCV MCH MCHC RDW Std Deviation RDW Coeff of Favian Plt Count [facility] Sample Site Art Line POC pH 7.47 H POC pCO2 27 L POC pO2 58 L POC HCO3 20 POC Total CO2 20 L POC Base Excess -4.0 ABG pH (Temp Correct) 7.469 H ABG pCO2 (Temp Corrct 27 L POC ABG pO2 at Pt Temp 58 POC ABG O2 Sat 92.0 Edin Test NA O2 Delivery Device BIPAP POC O2 Rate POC FiO2 70 Tidal Volume PEEP POC Sodium 143 Sodium POC Potassium 4.3 Potassium Chloride Carbon Dioxide Anion Gap BUN Creatinine Est Cr Clr Drug Dosing Est GFR ( Amer) Est GFR (Non-Af Amer) BUN/Creatinine Ratio Glucose POC Glucose 183 H 205 H POC Glucose (other) Calcium Phosphorus Magnesium 07/25/21 07/25/21 07/26/21 21:03 21:07 00:15 WBC RBC Hgb POC Hgb Hct POC Hct MCV MCH MCHC RDW Std Deviation RDW Coeff of Favian Plt Count [facility] Sample Site Art Line POC pH 7.26 L POC pCO2 44 POC pO2 82 POC HCO3 20 POC Total CO2 21 L POC Base Excess -8.0 ABG pH (Temp Correct) ABG pCO2 (Temp Corrct POC ABG pO2 at Pt Temp POC ABG O2 Sat 94.0 Edin Test NA O2 Delivery Device Ventilator POC O2 Rate 26 POC FiO2 100 Tidal Volume 380 PEEP 14 POC Sodium Sodium POC Potassium Potassium Chloride Carbon Dioxide Anion Gap BUN Creatinine Est Cr Clr Drug Dosing Est GFR ( Amer) Est GFR (Non-Af Amer) BUN/Creatinine Ratio Glucose POC Glucose 205 H POC Glucose (other) 214 H Calcium Phosphorus Magnesium 07/26/21 07/26/21 07/26/21 03:48 05:07 06:19 WBC 19.03 H RBC 3.45 L Hgb 10.9 L POC Hgb 10.2 L Hct 33.1 L POC Hct 30 L MCV 95.9 MCH 31.6 MCHC 32.9 RDW Std Deviation 53.2 H RDW Coeff of Favian 15.2 H Plt Count 134 MPV 12.4 H Sample Site Art Line POC pH 7.42 POC pCO2 29 L POC pO2 74 L POC HCO3 18 L POC Total CO2 19 L POC Base Excess -6.0 ABG pH (Temp Correct) 7.416 ABG pCO2 (Temp Corrct 29 L POC ABG pO2 at Pt Temp 75 POC ABG O2 Sat 95.0 Edin Test NA O2 Delivery Device Ventilator POC O2 Rate 30 POC FiO2 50 Tidal Volume 380 PEEP 12 POC Sodium 142 Sodium POC Potassium 4.4 Potassium Chloride Carbon Dioxide Anion Gap BUN Creatinine Est Cr Clr Drug Dosing Est GFR ( Amer) Est GFR (Non-Af Amer) BUN/Creatinine Ratio Glucose POC Glucose 175 H POC Glucose (other) Calcium Phosphorus Magnesium 07/26/21 07/26/21 07/26/21 06:19 08:07 10:56 WBC RBC Hgb POC Hgb Hct POC Hct MCV MCH MCHC RDW Std Deviation RDW Coeff of Favian Plt Count MPV Sample Site POC pH POC pCO2 POC pO2 POC HCO3 POC Total CO2 POC Base Excess ABG pH (Temp Correct) ABG pCO2 (Temp Corrct POC ABG pO2 at Pt Temp POC ABG O2 Sat Edin Test O2 Delivery Device POC O2 Rate POC FiO2 Tidal Volume PEEP POC Sodium Sodium 143 POC Potassium Potassium 4.5 Chloride 113 H Carbon Dioxide 18 L Anion Gap 13.0 H BUN 128 H Creatinine 4.09 H D Est Cr Clr Drug Dosing 12.0 Est GFR ( Amer) 11.3 Est GFR (Non-Af Amer) 9.8 BUN/Creatinine Ratio 31.3 H Glucose 140 H POC Glucose 162 H 162 H POC Glucose (other) Calcium 9.2 Phosphorus 3.6 Magnesium 3.6 H PG Care Time/CCT Total # of Minutes Spent Total Time Spent with Patient: Total time spent is greater than 50% in coordination of care (as documented) at patient's floor/unit and/or counseling patient: Coding Level of Care Code 50701 Subseq Hosp Care Lvl 3 Diagnoses ASPEN (acute kidney injury) N17.9 CKD (chronic kidney disease) stage 3, GFR 30-59 ml/min N18.3 Hemoptysis R04.2 COVID-19 U07.1 Respiratory failure with hypoxia J96.01 Chronicity: acute Hyperparathyroidism E21.3 Diabetes mellitus type 2 E11.9 (1) Respiratory failure with hypoxia Chronicity: acute Qualified Code(s): J96.01 - Acute respiratory failure with hypoxia
--- NOTE | 2021-07-26 16:11 | XRay Report ---
XR chest 1V portable CLINICAL HISTORY: repositioning COMPARISON STUDY: Chest radiograph July 26, 2021 at 8:14 AM. FINDINGS: Tip of endotracheal tube is approximately 1.1 cm above the ashlee. Right internal jugular c entral line remains in place. Tip of nasogastric tube is below the lower aspect of this image but at least within the stomach. Dual lead left subclavian pacer is in place. Extensive bilateral airspace o pacities, predominantly within a perihilar distribution, have slightly improved. There is no pneumoth orax. There are suspected trace bilateral pleural effusions. IMPRESSION: 1. Tip of endotracheal tube approximately 1.1 cm above the ashlee. Tube could be withdrawn an additio nal centimeter. 2. Extensive bilateral airspace opacities, predominantly within a perihilar distribution. Slightly im proved since prior exam. This favors pneumonia although pulmonary edema could appear similar. ACT 112: Negative or not required by law. Electronically signed by: Carroll Rodriguez M.D. 07/26/2021 4:09 PM
[2021-07-26 16:12] LABS: Calcium 8.8 mg/dl (8.5-10.1); Creatinine Clr Calc Pharmacy 11.3 ml/min; Est GFR (African American) 10.1 ml/min; Est GFR (Non-African American) 8.7 ml/min; Magnesium 3.5 mg/dl (1.8-2.4); Phosphorus 4.2 mg/dl (2.5-4.9); Potassium 4.5 mmol/L (3.5-5.1)
--- NOTE | 2021-07-26 16:28 | Hospitalist Progress Note ---
Date of Service July 26, 2021 Assessment & Plan (1) Respiratory failure with hypoxia: (2) COVID-19: Plan: Patient vaccinated fully against Covid, last dose November 2020 Plan: Acute on chronic hypoxic respiratory failure ARDS secondary to COVID-19 Vaccinated against Covid, last dose November 2020 -CXR:Extensive bilateral airspace opacities which favor an infectious process such as viral pneumonia. Radiographic follow-up to ensure resolution is recommended. Procalcitonin negative Not a candidate for remdesivir Completed dexamethasone course Appreciate critical care input Patient had respiratory distress post extubation, developed hemoptysis Heparin SQ held due to Hemoptysis CTA today showed extensive groundglass opacities are present throughout both lungs characteristic of a viral type pneumonitis and Covid 19 pneumonia. Continue Solumedrol for possible diffuse alveolar hemorrhage Serological work-up for autoimmune disease ordered by Critical care Continue Zosyn Concern for Vasculitis Prognosis guarded Reintubated on07/25/21 50% FiO2, 10 of PEEP Neuromuscular blockade discontinued Possible flash pulmonary edema Lasix as needed on nicardipine drip Atrial Fibrillation Rate controlled Monitor Mild hyponatremia Sodium: 134>>140> 142>143 Sodium level normalized ASPEN on CKD III Baseline 1.5-1.7; presenting creatinine 1.93 Hold nephrotoxic including torsemide and spironolactone Cr: 2.75 ATN versus acute glomerulonephritis, concern for vasculitis Appreciate nephrology input Prognosis guarded Monitor renal function Renal function continues to worsen May need REFUSE COLLECTOR if renal function continues to worsen CAD Continue statin Aspirin held DM II SSI, glycemic pharmacy DVT Px: Heparin SQ--Held due to Hemoptysis CODE STATUS Full code for now Admission and Anticipated Discharge Date Admission Date: July 15, 2021 Subjective Patient is seen and examined at bedside Patient was reintubated and prolonged overnight Currently remains intubated On 50% FiO2, 10 of PEEP On fentanyl for sedation Renal function continues to worsen Prognosis is guarded Review of Systems Review of Systems: Unobtainable due to endotracheal tube Physical Exam Physical Exam: Physical Exam: Vitals signs as noted above General Appearance:Obese, Sedated and intubated Head: normocephalic, Atraumatic Eyes: normal inspection Neck: supple, Trachea midline Respiratory/Chest: Decreased course breath sounds Cardiovascular: Irregularly irregular,No murmur Abdomen/GI:Soft, Non tender, Bowel sounds present Extremities/Musculoskeletal:normal inspection, no edema Neurologic/Psych:Intubated Skin: normal color, warm Results & Data Results & Data ([facility]) Vital Signs (Past 12 Hours) Vital Signs Temp Pulse Resp BP Pulse Ox 07/26/21 14:54 68 26 H 92 07/26/21 12:00 61 26 H 123/53 L 93 07/26/21 11:37 64 26 H 92 07/26/21 11:00 36.6 C 69 26 H 93 07/26/21 10:00 69 26 H 92 07/26/21 09:00 72 26 H 92 07/26/21 08:00 36.5 C 74 31 H 89 L 07/26/21 07:03 67 30 H 94 07/26/21 07:00 70 30 H 94 07/26/21 06:45 72 30 H 94 07/26/21 06:30 67 30 H 95 07/26/21 06:15 74 30 H 95 07/26/21 06:00 72 30 H 95 07/26/21 05:45 73 30 H 95 07/26/21 05:30 66 30 H 95 07/26/21 05:25 36.8 C 07/26/21 05:15 62 30 H 94 07/26/21 05:00 65 30 H 96 07/26/21 04:45 67 30 H 95 07/26/21 04:30 69 30 H 95 Laboratory Results Short CBC 07/26/21 Range/Units 06:19 WBC 19.03 H (4.8-10.8) K/uL Hgb 10.9 L (12.0-16.0) g/dL Hct 33.1 L (37-47) % Plt Count 134 (130-400) K/uL BMP 07/26/21 07/26/21 06:19 15:07 Sodium 143 143 Potassium 4.5 4.5 Chloride 113 H 111 H Carbon Dioxide 18 L 19 L BUN 128 H 135 H Creatinine 4.09 H D 4.50 H D Glucose 140 H 148 H Calcium 9.2 8.8 (1) Respiratory failure with hypoxia Chronicity: acute Qualified Code(s): J96.01 - Acute respiratory failure with hypoxia
[2021-07-26] MEDS: NOVASOURCE RENAL 2.0 CAL 1000ML BAG OG SCH (19:09)
[2021-07-26] MEDS: INSULIN HUMAN NPH SC SCH (20:33)
[2021-07-27] MEDS: ARTIFICIAL TEARS OP OINT 3.5 GM TUBE OP SCH ×5 (03:45→20:33)
[2021-07-27] MEDS: INSULIN ASPART 100 UNITS/ML 3 ML PEN SC SCH ×3 (03:47→14:50)
[2021-07-27] MEDS: propofoL 1,000 MG/100 ML VIAL IV SCH ×5 (04:49→23:15)
[2021-07-27 04:54] LABS: iSTAT Art Bld Gas pCO2 Correct 30 mmHg (35-46); iSTAT Art Bld Gas pH Corrected 7.374 (7.35-7.45); iSTAT Arterial Blood Gas HCO3 18 meg/L (19-24); iSTAT Arterial Blood Gas pCO2 31 mmHg (35-46); iSTAT Arterial Blood Gas pH 7.36 (7.35-7.45); iSTAT Arterial Blood Gas pO2 59 mmHg (80-95); iSTAT Arterial Blood Gas pO2 C 55; iSTAT Carbon Dioxide 19 mmol/L (24-31); iSTAT FiO2 50 %; iSTAT Hematocrit 29 % (37-47); iSTAT Hemoglobin 9.9 g/dl (12.0-16.0); iSTAT Potassium 4.6 mmol/L (3.3-5.0); iSTAT Site Art Line; iSTAT Sodium 141 mmol/L (135-144)
[2021-07-27] MEDS: methylPREDNISolone 125 MG in SYRINGE 0 ML IV SCH ×3 (06:46→18:46)
[2021-07-27] MEDS: fentaNYL DRIP 1,250 MCG/250 ML BAG IV SCH ×2 (06:51→20:40)
--- NOTE | 2021-07-27 07:40 | XRay Report ---
XR chest 1V portable CLINICAL HISTORY: Resp failure. Follow-up bilateral airspace opacities COMPARISON STUDY: 07/26/2021 TECHNIQUE: 1 view of the chest FINDINGS: Single frontal view of the chest demonstrates the cardiomediastinal silhouette to be within normal li mits. Cardiac pacer is again seen. There has been mild retraction of the patient's endotracheal tube which is now approximately 2.8 cm above the ashlee. Remaining tubes and catheters appear unchanged. E xtensive interstitial and alveolar opacities are again seen bilaterally most characteristic of a [place] type pneumonitis and Covid pneumonia. There is no evidence for pleural effusion. There is no eviden ce for vascular congestion. There is no acute osseous pathology. IMPRESSION: Compared to previous examination, marked interstitial and alveolar opacities are again se en bilaterally characteristic of Covid pneumonia. There has been slight retraction of the patient's e ndotracheal tube into a more anatomic position. ACT 112: Negative or not required by law. Electronically signed by: Ashutosh Medeiros M.D. 07/27/2021 7:38 AM
[2021-07-27] MEDS: INSULIN GLARGINE SOLOSTAR 100 UNITS/ML 3 ML PEN SC SCH (09:04)
[2021-07-27] MEDS: PIPERACILLIN/TAZOBACTAM 4.5 GM in DEXTROSE 5% 100 ML IV SCH (09:05)
[2021-07-27] MEDS: MULTI VIT W/MINERALS LIQUID 15 ML UDP NG SCH (09:06)
[2021-07-27] MEDS: ATORVASTATIN 40 MG TAB PO SCH (09:06)
[2021-07-27] MEDS: PANTOprazole 40 MG in SYRINGE 0 ML IV SCH (09:10)
[2021-07-27] MEDS: GABAPENTIN 250 MG/5 ML 470 ML BTL PO SCH ×3 (09:11→20:27)
[2021-07-27] MEDS: INSULIN HUMAN NPH SC SCH ×2 (09:12→20:29)
[2021-07-27] MEDS: POLYETHYLENE (MIRALAX) 17 GM PACK PO SCH (09:23)
[2021-07-27 09:55] LABS: Hematocrit (blood only) 29.7 % (37-47); Mean Corpuscular Hemoglobin 31.8 pg (25-34); Mean Corpuscular Hgb Conc 33.7 g/dL (32-36); Mean Corpuscular Volume 94.6 fL (80-100); Mean Platelet Volume 12.7 fL (7.4-10.4); Nucleated RBC # (auto) 0.06 K/uL (0-0); Nucleated RBC % (auto) 0.5 %; Platelet Count 90 K/uL (130-400); Platelet Estimate Decreased (Normal); RDW Coefficient of Variation 15.1 % (11.5-14.5); RDW Standard Deviation 51.9 fL (36.4-46.3); Red Blood Count 3.14 M/uL (4.2-5.4); White Blood Count 11.22 K/uL (4.8-10.8)
[2021-07-27 10:03] LABS: BUN Creatinine Ratio 30.5 (10-20); Calcium 8.4 mg/dl (8.5-10.1); Creatinine Clr Calc Pharmacy 10.7 ml/min; Est GFR (African American) 9.2 ml/min; Est GFR (Non-African American) 7.9 ml/min; Magnesium 3.6 mg/dl (1.8-2.4); Potassium 4.7 mmol/L (3.5-5.1)
[2021-07-27] MEDS ORDERED: SODIUM CHLORIDE 0.9% 1000ML 1,000 ML IV PRN (10:09)
[2021-07-27] MEDS ORDERED: HEPARIN SOD (PORCINE) 1000 UNIT/ML IV ONE (10:09)
--- NOTE | 2021-07-27 10:11 | Nephrology Progress Note ---
Date of Service July 27, 2021 Assessment & Plan (1) ASPEN (acute kidney injury): Plan: Clinically consistent with ATN versus acute GN. Oligoanuric approaching the need for DIET ASSISTANT. Remains oligoanuric despite diuretic challenge. Will plan HD catheter placement today and first treatment once access secured. Prognosis guarded. I cannot exclude underlying acute GN such as ANCA mediated or anti-BM. Testing has been sent to the reference lab and I contacted the laboratory to expedite the results. The prognosis for renal vasculitis with possible pulmonary involvement is very concerning though unlikely. I am supportive of continued aggressive use of methylprednisolone. There is a component of ATN regardless of what other factors may be contributing. AIN is less likely but cannot be excluded. COVID associated pneumonia and ASPEN is the most likely etiology. Appropriate supportive care is being provided. Monitor metabolic profile twice daily. Clinically not appropriate for kidney biopsy at this time. (2) CKD (chronic kidney disease) stage 3, GFR 30-59 ml/min: Plan: CKD III A1 attributed to DKD. Baseline creatinine ~1.5 mg/dL. Follows with Dr. Fountain as outpatient. I will discuss the plan of care with Dr. Fountain tomorrow at family's request. (3) Hemoptysis: Plan: Imaging reviewed. Cannot exclude vasculitis. (4) COVID-19: Plan: Remains on methylprednisolone 125 mg Q 6 hrs. (5) Respiratory failure with hypoxia: (6) Hyperparathyroidism: (7) Diabetes mellitus type 2: Admission and Anticipated Discharge Date Admission Date: July 15, 2021 Subjective No acute events overnight. Urine output ~60 ml last shift. Furosemide 160 mg IV provided overnight. Stable on vent. BP acceptable. I discussed the plan of care with Dr. Jiang this morning. I called and reviewed the patient's status and goals of care with the patient's daughter (Catherine) again this morning. Review of Systems Review of Systems: Unobtainable due to endotracheal tube and Unobtainable due to reduced consciousness Physical Exam Constitutional: + ill appearing and + mechanically ventilated; no acute distress Eyes: + anicteric sclerae; no corneal abnormality ENMT: Mouth: + dry oral mucous membranes; no oral mucosal abnormality Neck: normal visual inspection and trachea midline Respiratory: symmetric chest movement Auscultation: + rhonchi Cardiovascular: Rate/Rhythm: regular rate Heart Sounds: normal S1 and normal S2 Extremities: + edema Gastrointestinal (Abdomen): Inspection/Auscultation: normal bowel sounds Percussion/Palpation: abdomen soft Musculoskeletal: Extremities: no cyanosis and no clubbing Skin: normal turgor; no lesions Neurologic: Motor/Sensory: no tremor and no asterixis Results & Data ([facility]) Vital Signs (Past 12 Hours) Vital Signs Temp Pulse Resp Pulse Ox 07/27/21 08:00 36.5 C 07/27/21 07:42 26 H 07/27/21 07:15 36.2 C L 61 26 H 91 07/27/21 07:00 36.2 C L 61 26 H 91 07/27/21 06:45 36.2 C L 63 26 H 92 07/27/21 06:30 36.2 C L 64 26 H 92 07/27/21 06:15 36.2 C L 63 26 H 92 07/27/21 06:00 36.3 C L 66 26 H 91 07/27/21 05:45 76 26 H 90 07/27/21 05:30 36.3 C L 66 26 H 91 07/27/21 05:15 36.3 C L 63 26 H 91 07/27/21 05:00 36.3 C L 67 26 H 91 07/27/21 04:45 36.3 C L 70 26 H 90 07/27/21 04:30 36.3 C L 70 26 H 89 L 07/27/21 04:15 36.2 C L 60 26 H 89 L 07/27/21 04:00 36.2 C L 61 26 H 89 L 07/27/21 03:45 36.2 C L 65 26 H 89 L 07/27/21 03:30 36.2 C L 62 26 H 90 07/27/21 03:15 36.2 C L 69 26 H 90 07/27/21 03:00 36.2 C L 62 26 H 89 L 07/27/21 02:45 36.1 C L 67 26 H 90 07/27/21 02:30 36.1 C L 62 26 H 90 07/27/21 02:15 36.1 C L 64 26 H 90 07/27/21 02:00 36.0 C L 63 26 H 89 L 07/27/21 01:45 36.0 C L 68 26 H 90 07/27/21 01:30 35.9 C L 64 26 H 88 L 07/27/21 01:15 35.8 C L 67 26 H 87 L 07/27/21 01:00 35.7 C L 71 28 H 88 L 07/27/21 00:45 35.7 C L 82 26 H 88 L 07/27/21 00:30 35.6 C L 71 23 89 L 07/27/21 00:15 35.6 C L 78 27 H 90 07/27/21 00:00 35.6 C L 72 29 H 90 07/26/21 23:45 35.7 C L 81 26 H 88 L 07/26/21 23:30 35.7 C L 64 26 H 90 07/26/21 23:15 35.6 C L 62 26 H 90 07/26/21 23:00 35.6 C L 65 26 H 90 07/26/21 22:45 35.6 C L 62 26 H 90 07/26/21 22:30 35.6 C L 60 26 H 90 07/26/21 22:15 35.6 C L 62 26 H 90 Laboratory Results Laboratory Results - last 24 hr 07/26/21 07/26/21 07/26/21 15:07 20:22 23:51 WBC RBC Hgb POC Hgb Hct POC Hct MCV MCH MCHC RDW Std Deviation RDW Coeff of Favian Plt Count MPV Absolute Nucleated RBC Nucleated RBC % (auto) Platelet Estimate Sample Site POC pH POC pCO2 POC pO2 POC HCO3 POC Total CO2 POC Base Excess ABG pH (Temp Correct) ABG pCO2 (Temp Corrct POC ABG pO2 at Pt Temp POC ABG O2 Sat Edin Test O2 Delivery Device POC O2 Rate POC FiO2 Tidal Volume PEEP POC Sodium Sodium 143 POC Potassium Potassium 4.5 Chloride 111 H Carbon Dioxide 19 L Anion Gap 14.0 H BUN 135 H Creatinine 4.50 H D Est Cr Clr Drug Dosing 11.3 Est GFR ( Amer) 10.1 Est GFR (Non-Af Amer) 8.7 BUN/Creatinine Ratio 30.0 H Glucose 148 H POC Glucose 131 H 165 H Calcium 8.8 Phosphorus 4.2 Magnesium 3.5 H Procalcitonin 07/27/21 07/27/21 07/27/21 03:45 04:39 07:58 WBC RBC Hgb POC Hgb 9.9 L Hct POC Hct 29 L MCV MCH MCHC RDW Std Deviation RDW Coeff of Favian Plt Count MPV Absolute Nucleated RBC Nucleated RBC % (auto) Platelet Estimate Sample Site Art Line POC pH 7.36 POC pCO2 31 L POC pO2 59 L POC HCO3 18 L POC Total CO2 19 L POC Base Excess -8.0 ABG pH (Temp Correct) 7.374 ABG pCO2 (Temp Corrct 30 L POC ABG pO2 at Pt Temp 55 POC ABG O2 Sat 89.0 L Edin Test NA O2 Delivery Device Ventilator POC O2 Rate 26 POC FiO2 50 Tidal Volume 380 PEEP 10 POC Sodium 141 Sodium POC Potassium 4.6 Potassium Chloride Carbon Dioxide Anion Gap BUN Creatinine Est Cr Clr Drug Dosing Est GFR ( Amer) Est GFR (Non-Af Amer) BUN/Creatinine Ratio Glucose POC Glucose 145 H 134 H Calcium Phosphorus Magnesium Procalcitonin 07/27/21 07/27/21 07/27/21 08:42 08:42 08:42 WBC 11.22 H RBC 3.14 L Hgb 10.0 L POC Hgb Hct 29.7 L POC Hct MCV 94.6 MCH 31.8 MCHC 33.7 RDW Std Deviation 51.9 H RDW Coeff of Favian 15.1 H Plt Count 90 L MPV 12.7 H Absolute Nucleated RBC 0.06 H Nucleated RBC % (auto) 0.5 Platelet Estimate Decreased L Sample Site POC pH POC pCO2 POC pO2 POC HCO3 POC Total CO2 POC Base Excess ABG pH (Temp Correct) ABG pCO2 (Temp Corrct POC ABG pO2 at Pt Temp POC ABG O2 Sat Edin Test O2 Delivery Device POC O2 Rate POC FiO2 Tidal Volume PEEP POC Sodium Sodium 142 POC Potassium Potassium 4.7 Chloride 112 H Carbon Dioxide 17 L Anion Gap 14.0 H BUN 146 H Creatinine 4.85 H* D Est Cr Clr Drug Dosing 10.7 Est GFR ( Amer) 9.2 Est GFR (Non-Af Amer) 7.9 BUN/Creatinine Ratio 30.5 H Glucose 122 H POC Glucose Calcium 8.4 L Phosphorus 5.2 H D Magnesium 3.6 H Procalcitonin 0.68 H 07/27/21 11:33 WBC RBC Hgb POC Hgb Hct POC Hct MCV MCH MCHC RDW Std Deviation RDW Coeff of Favian Plt Count MPV Absolute Nucleated RBC Nucleated RBC % (auto) Platelet Estimate Sample Site POC pH POC pCO2 POC pO2 POC HCO3 POC Total CO2 POC Base Excess ABG pH (Temp Correct) ABG pCO2 (Temp Corrct POC ABG pO2 at Pt Temp POC ABG O2 Sat Edin Test O2 Delivery Device POC O2 Rate POC FiO2 Tidal Volume PEEP POC Sodium Sodium POC Potassium Potassium Chloride Carbon Dioxide Anion Gap BUN Creatinine Est Cr Clr Drug Dosing Est GFR ( Amer) Est GFR (Non-Af Amer) BUN/Creatinine Ratio Glucose POC Glucose 165 H Calcium Phosphorus Magnesium Procalcitonin PG Care Time/CCT Total # of Minutes Spent Total Time Spent with Patient: Total time spent is greater than 50% in coordination of care (as documented) at patient's floor/unit and/or counseling patient: Coding Level of Care Code 79417 Subseq Hosp Care Lvl 3 Diagnoses ASPEN (acute kidney injury) N17.9 CKD (chronic kidney disease) stage 3, GFR 30-59 ml/min N18.3 Hemoptysis R04.2 COVID-19 U07.1 Respiratory failure with hypoxia J96.01 Chronicity: acute Hyperparathyroidism E21.3 Diabetes mellitus type 2 E11.9 (1) Respiratory failure with hypoxia Chronicity: acute Qualified Code(s): J96.01 - Acute respiratory failure with hypoxia
[2021-07-27 10:55] LABS: Phosphorus 5.2 mg/dl (2.5-4.9)
[2021-07-27 12:26] LABS: Hepatitis B Surface Ab Quant < 3.10 mIU/mL (>or=10mIU/mL Immune); Hepatitis B Surface Antibody Non-Immune
[2021-07-27] MEDS ORDERED: HEPARIN SOD (PORCINE) 1000 UNIT/ML ONE (13:24)
--- NOTE | 2021-07-27 13:29 | Procedure Note ---
Procedure Note Date of Service July 27, 2021 Note CENTRAL LINE PROCEDURE NOTE: Procedure: Central Line Placement Provider: Sal Jiang MD Indication: Central Drug Administration, Poor Venous Access, Multiple Lab Draws Necessary, etc. Anesthesia: 5ml Lidocaine 1% Site: Left internal jugular Procedure was emergent. Patient not immediately available for consent. Dr. Cerrato had discussed with the family earlier need for dialysis. A time-out was completed verifying correct patient, procedure, site, positioning, and implants(s) or special equipment if applicable. Patients left neck was cleansed and draped in the typical sterile fashion using Chloraprep. The Internal Jugular Vein and Carotid Artery were identified using ultrasound. The superficial tissue was anesthetized using 5mL of 1% lidocaine without epinephrine under direct visualization with the ultrasound. After adequate anesthetization was achieved, the Internal Jugular vein was cannulated under direct ultrasound guidance using an introducer needle on a syringe. Good venous blood return was maintained prior to removal of syringe from introducer needle. Using Seldinger Technique, a guide wire was advanced through the introducer needle without resistance. The introducer needle was removed and ultrasound im ages were obtained of the guide wire within the Internal Jugular Vein. A small incision was made in penetrating fashion at the guide wire insertion site utilizing an 11 blade scalpel. The dilator was advanced to the vessel without resistance. The dilator was exchanged for the triple lumen catheter which was advanced into the vessel without resistance. The guide wire was removed intact from the catheter without issue. Claves were placed on each catheter tip with confirmation of good blood flow from each lumen. Each port was easily flushed with sterile saline. The catheter was placed at 20cm and sutured in place. BioPatch was applied to the catheter and a sterile Tegaderm dressing was applied over the catheter with careful attention to sterility. Patient tolerated procedure well. No immediate complications were met. Post procedure x-ray was completed, placement was appropriate and no pneumothorax was noted. Images obtained but were not saved to the medical record due to technical issues Procedural Ultrasound Guidance: Procedure Date: 07/27/2021 Indication: Vascular access Proceduralist: Sal Jiang MD Artery AND Vein visualized: Yes Compressible Vein: Yes Guidewire or Short Catheter seen in vein prior to dilation: Yes Line confirmed in Vein with ultrasound: Yes Coding CPT Codes Tubes, Drains, and Vasc Access - Tubes, Drains, and Vasc Access: [id number] Insertion of cannula for hemodialysis ([id number]) [facility] [place] Procedure Codes (Charges) Tubes, Drains, and Vasc Access Procedure 1: Tubes, Drains, and Vasc Access: [id number] Insertion of cannula for hemodialysis
--- NOTE | 2021-07-27 14:03 | XRay Report ---
XR chest 1V portable CLINICAL HISTORY: Line placement. COMPARISON STUDY: Chest radiograph July 27, 2021 at 6:58 AM. FINDINGS: Tip of endotracheal tube 2.4 cm above the ashlee. Right internal jugular central line remai ns in place. Interval placement of a dual-lumen left internal jugular central line is noted. The tip of this catheter is not well visualized on this exam. There is no pneumothorax. No definite pleural e ffusion. Extensive bilateral airspace opacities persist. Cardiomegaly is again noted. IMPRESSION: 1. No pneumothorax following placement of a dual lumen left internal jugular central line. Tip of thi s catheter not well visualized on this exam due to overlying leads. 2. Satisfactory positioning of the endotracheal tube 3. Persistent extensive bilateral airspace opacities. ACT 112: Negative or not required by law. Electronically signed by: Carroll Rodriguez M.D. 07/27/2021 2:02 PM
--- NOTE | 2021-07-27 14:16 | Critical Care Progress Note ---
Date of Service July 27, 2021 Assessment & Plan (1) COVID-19: (2) Respiratory failure with hypoxia: (3) CKD (chronic kidney disease) stage 3, GFR 30-59 ml/min: (4) Hx of heart artery stent: (5) Hemoptysis: Plan: Impression: 80-year-old female fully vaccinated for Covid admitted to the facility 07/15/2021 with acute on chronic hypoxemic respiratory failure. She was intubated 07/20/2021 and extubated 07/23/2021 but unfortunately then developed hemoptysis and was reintubated 07/25/2021. 24-hour events: The patient continues to require high ventilatory settings. She is essentially an uric/oliguric. She has not had any additional hemoptysis. Nephrology recommends dialysis. Recommndations: Neurologic:Intubated and Sedated for mechanical ventilation. Continue sedation with propofol and fentanyl. No indication for paralytics currently. Depending on clinical response, may need to consider tracheostomy. May need additional sedation depending on clinical course. Pulmonary: Hypoxic respiratory failure secondary to Covid pneumonia. Patient extubated after initial trial mechanical ventilation, had respiratory distress post extubation- BIPAP failed and re-intubated on 07/25/21 and then proned. She also has evidence of hemoptysis. Worsening of biilateral interstitial infiltrates and groundglass opacity seen with small bilateral effusions. Currently receiving methylprednisone 125 mg q6h for possibility of diffuse al veolar hemorrhage. OLI cascade ordered to evaluate for autoimmune process. Beta glucan ordered as well to evaluate for possible fungal process is still pending. She is not really responded to proning and will hold off on additional proning maneuvers. If the patient fails steroids, would have low threshold for proceeding with bronchoscopy with BAL. If she has persistent alveolar hemorrhage despite high-dose steroids, options at that point time would include transfer to tertiary center for potential plasmapheresis for consideration of IVIG. Unfortunately rheumatology consultation is not available at this institution. Still on 60% with 10 of PEEP. Not wean able currently. Cardiovascular: She has an extensive history of coronary artery disease. Echo with LVEF of 55 to 60%. Mild aortic regurgitation. Severe mitral annular calcification. Moderate mitral regurgitation. She remains off pressors, her Cardene was discontinued as with sedation her BP is not elevated Gastrointestinal: OGT. May consider initiation of tube feeding depending on clinical response. Renal: Appreciate nephrology input. Will place hemodialysis catheter for potential dialysis later today. History of CKD stage III. Awaiting serologies. Infectious disease: Currently on Zosyn - D#7 abx. Blood cultures from the fifth of show no growth to date. Will check respiratory cultures. Procalcitonin unl ikely to be helpful given the patient's renal failure. will stop abx and follow. Hematologic: Hemoptysis resolved. Hemoglobin stable. INR within normal limits. PTT remains mildly elevated. Endocrine: Hyperglycemia management per ICU pharmacist. VTE prophylaxis: Hold all anticoagulation and continue SCDs. CODE STATUS: Full code. Disposition: Remain in the ICU. Prognosis is guarded. Family updated by primary service. I have personally spent 54 minutes of critical care time in the direct management of this patient. This is a life/limb threatening event. This includes time spent evaluating patient, direct bedside care, chart review, placing orders, interpretation of diagnostic studies, discussion with consultants, patient, and family members, as well as other required patient management activities. This time is exclusive of all separately billable procedures, and teaching time and separate from and in addition to any other critical care service time. Thank you for allowing us to participate in the care of this patient. Admission and Anticipated Discharge Date Admission Date: July 15, 2021 Subjective Patient seen and examined. EMR reviewed. Discussed with off going plug grower and with bedside nurse. The patient is intubated sedated. Review of Systems Review of Systems: Unobtainable due to endotracheal tube Physical Exam Constitutional: + ill appearing and + mechanically ventilated; no acute distress Eyes: + anicteric sclerae; no corneal abnormality ENMT: Mouth: + dry oral mucous membranes; no oral mucosal abnormality Neck: normal visual inspection and trachea midline Respiratory: symmetric chest movement Auscultation: + rhonchi Cardiovascular: Rate/Rhythm: regular rate Heart Sounds: normal S1 and normal S2 Extremities: + edema Gastrointestinal (Abdomen): Inspection/Auscultation: normal bowel sounds Percussion/Palpation: abdomen soft Musculoskeletal: Extremities: no cyanosis and no clubbing Skin: normal turgor; no lesions Neurologic: Motor/Sensory: no tremor and no asterixis Results & Data Results & Data ([facility]) Vital Signs (Past 12 Hours) Vital Signs Temp Pulse Resp Pulse Ox 07/27/21 08:00 36.5 C 07/27/21 07:42 26 H 07/27/21 07:15 36.2 C L 61 26 H 91 07/27/21 07:00 36.2 C L 61 26 H 91 07/27/21 06:45 36.2 C L 63 26 H 92 07/27/21 06:30 36.2 C L 64 26 H 92 07/27/21 06:15 36.2 C L 63 26 H 92 07/27/21 06:00 36.3 C L 66 26 H 91 07/27/21 05:45 76 26 H 90 07/27/21 05:30 36.3 C L 66 26 H 91 07/27/21 05:15 36.3 C L 63 26 H 91 07/27/21 05:00 36.3 C L 67 26 H 91 07/27/21 04:45 36.3 C L 70 26 H 90 07/27/21 04:30 36.3 C L 70 26 H 89 L 07/27/21 04:15 36.2 C L 60 26 H 89 L 07/27/21 04:00 36.2 C L 61 26 H 89 L 07/27/21 03:45 36.2 C L 65 26 H 89 L 07/27/21 03:30 36.2 C L 62 26 H 90 07/27/21 03:15 36.2 C L 69 26 H 90 07/27/21 03:00 36.2 C L 62 26 H 89 L 07/27/21 02:45 36.1 C L 67 26 H 90 07/27/21 02:30 36.1 C L 62 26 H 90 07/27/21 02:15 36.1 C L 64 26 H 90 Critical Care Results & Data Vital Signs (Past 12 Hours) Vital Signs Temp Pulse Resp Pulse Ox 07/27/21 08:00 36.5 C 07/27/21 07:42 26 H 07/27/21 07:15 36.2 C L 61 26 H 91 07/27/21 07:00 36.2 C L 61 26 H 91 07/27/21 06:45 36.2 C L 63 26 H 92 07/27/21 06:30 36.2 C L 64 26 H 92 07/27/21 06:15 36.2 C L 63 26 H 92 07/27/21 06:00 36.3 C L 66 26 H 91 07/27/21 05:45 76 26 H 90 07/27/21 05:30 36.3 C L 66 26 H 91 07/27/21 05:15 36.3 C L 63 26 H 91 07/27/21 05:00 36.3 C L 67 26 H 91 07/27/21 04:45 36.3 C L 70 26 H 90 07/27/21 04:30 36.3 C L 70 26 H 89 L 07/27/21 04:15 36.2 C L 60 26 H 89 L 07/27/21 04:00 36.2 C L 61 26 H 89 L 07/27/21 03:45 36.2 C L 65 26 H 89 L 07/27/21 03:30 36.2 C L 62 26 H 90 07/27/21 03:15 36.2 C L 69 26 H 90 07/27/21 03:00 36.2 C L 62 26 H 89 L 07/27/21 02:45 36.1 C L 67 26 H 90 07/27/21 02:30 36.1 C L 62 26 H 90 07/27/21 02:15 36.1 C L 64 26 H 90 Lab & Micro Results (Past 24 Hours) RBC 3.14 M/uL (4.2-5.4) L 07/27/21 WBC 11.22 K/uL (4.8-10.8) H 07/27/21 Hgb 10.0 g/dL (12.0-16.0) L 07/27/21 Hct 29.7 % (37-47) L 07/27/21 MCV 94.6 fL (80-100) 07/27/21 MCH 31.8 pg (25-34) 07/27/21 MCHC 33.7 g/dL (32-36) 07/27/21 RDW Standard Deviation 51.9 fL (36.4-46.3) H 07/27/21 RDW Coefficient of Variation 15.1 % (11.5-14.5) H 07/27/21 Plt Count 90 K/uL (130-400) L 07/27/21 MPV 12.7 fL (7.4-10.4) H 07/27/21 Nucleated Red Blood Cells % (auto) 0.5 % 07/27/21 Nucleated RBC Absolute Count (auto) 0.06 K/uL (0-0) H 07/27/21 Na 142 mmol/L (136-145) 07/27/21 K 4.7 mmol/L (3.5-5.1) 07/27/21 Cl 112 mmol/L (98-107) H 07/27/21 CO2 17 mmol/L (21-32) L 07/27/21 Anion Gap 14.0 (3-11) H 07/27/21 BUN 146 mg/dl (7-18) H 07/27/21 Creatinine 4.85 mg/dl (0.6-1.2) H* 07/27/21 Estimated GFR ( Amer) 9.2 ml/min 07/27/21 Estimated GFR (Non-Af Amer) 7.9 ml/min 07/27/21 BUN/Creatinine Ratio 30.5 (10-20) H 07/27/21 Glu 122 mg/dl (70-99) H 07/27/21 Ca 8.4 mg/dl (8.5-10.1) L 07/27/21 Phosphorus Level 5.2 mg/dl (2.5-4.9) H 07/27/21 Mg 3.6 mg/dl (1.8-2.4) H 07/27/21 08:42 07/27/21 Calcium Level 8.4 mg/dl (8.5-10.1) L 07/27/21 08:42 07/27/21 Edin Test NA 07/27/21 04:39 07/27/21 Diagnostic Findings (Past 24 Hours) Chest X-Ray 07/26/21 15:30 XR chest 1V portable CLINICAL HISTORY: repositioning COMPARISON STUDY: Chest radiograph July 26, 2021 at 8:14 AM. FINDINGS: Tip of endotracheal tube is approximately 1.1 cm above the ashlee. Right internal jugular central line remains in place. Tip of nasogastric tube is below the lower aspect of this image but at least within the stomach. Dual lead left subclavian pacer is in place. Extensive bilateral airspace opacities, predominantly within a perihilar distribution, have slightly improved. There is no pneumothorax. There are suspected trace bilateral pleural effusions. IMPRESSION: 1. Tip of endotracheal tube approximately 1.1 cm above the ashlee. Tube could be withdrawn an additional centimeter. 2. Extensive bilateral airspace opacities, predominantly within a perihilar distribution. Slightly improved since prior exam. This favors pneumonia although pulmonary edema could appear similar. ACT 112: Negative or not required by law. Electronically signed by: Carroll Rodriguez M.D. 07/26/2021 4:09 PM Chest X-Ray 07/27/21 07:00 XR chest 1V portable CLINICAL HISTORY: Resp failure. Follow-up bilateral airspace opacities COMPARISON STUDY: 07/26/2021 TECHNIQUE: 1 view of the chest FINDINGS: Single frontal view of the chest demonstrates the cardiomediastinal silhouette to be within normal limits. Cardiac pacer is again seen. There has been mild retraction of the patient's endotracheal tube which is now approximately 2.8 cm above the ashlee. Remaining tubes and catheters appear unchanged. Extensive interstitial and alveolar opacities are again seen bilaterally most rosendo acteristic of a viral type pneumonitis and Covid pneumonia. There is no evidence for pleural effusion. There is no evidence for vascular congestion. There is no acute osseous pathology. IMPRESSION: Compared to previous examination, marked interstitial and alveolar opacities are again seen bilaterally characteristic of Covid pneumonia. There has been slight retraction of the patient's endotracheal tube into a more anatomic position. ACT 112: Negative or not required by law. Electronically signed by: Ashutosh Medeiros M.D. 07/27/2021 7:38 AM I & O Totals 24 Hours 07/26/21 07/27/21 07/28/21 06:59 06:59 06:59 Intake Total 1093.004 / 3573.550 1855.277 / 1416.277 378.105 / 378.105 Output Total 110 / 110 115 / 115 60 / 60 Balance 983.004 / 834.386 1756.277 / 1301.277 318.105 / 318.105 Cumulative 07/15/21 11:42 thru 07/27/21 09:12 Intake Total 33372.534 Output Total 61639 Balance 450.534 RT Ventilator Mngmt (Last Documented) Ventilator Ordered Settings Ventilator Support Mode Assist Control 07/27/21 07:42 Respiratory Rate 26 07/27/21 07:42 Ventilator Tidal Volume 380 07/27/21 07:42 Setting Minute Ventilation 9.8 07/27/21 07:42 Positive End Expiratory 10 07/27/21 07:42 Pressure Fraction of Inspired Oxygen 60 07/27/21 07:42 Machine Comment FiO2 increased to 60% post ABG, 07/27/21 04:42 ENGINE MONITOR aware Ventilator - PT Measurements Respiratory Rate 26 Exhaled Tidal Volume 382 Minute Ventilation 9.8 Peak Inspiratory Airway 30 Pressure Plateau Pressure 26 Respiratory Cycle Inspiratory: 1:2.5 Expiratory Ratio Inspiratory Phase Time 0.65 End-Tidal CO2 21 Static Lung Compliance 23.88 Dynamic Lung Compliance 19.10 Normal Static Lung Compliance 45.00 Patient Measurements Comment pt supine. Hi/Lo bloody Coding Level of Care Code Critical Care 1st 30-74 mins Diagnoses COVID-19 U07.1 Respiratory failure with hypoxia J96.01 Chronicity: acute CKD (chronic kidney disease) stage 3, GFR 30-59 ml/min N18.3 Hx of heart artery stent Z95.5 Hemoptysis R04.2 Time Spent (min) 54 (1) Respiratory failure with hypoxia Chronicity: acute Qualified Code(s): J96.01 - Acute respiratory failure with hypoxia
--- NOTE | 2021-07-27 14:35 | Pharmacy Report ---
Pharmacy Glycemic Short Note 2 - Date of Service July 27, 2021 - Glycemic Short BSG Results (Last 24 hours): 07/26/21 07/26/21 07/26/21 15:07 20:22 23:51 Glucose 148 H POC Glucose 131 H 165 H 07/27/21 07/27/21 07/27/21 03:45 07:58 08:42 Glucose 122 H POC Glucose 145 H 134 H 07/27/21 11:33 Glucose POC Glucose 165 H OUTPATIENT ANTIDIABETIC REGIMEN: * Lantus 43 units Q AM + 26 units Q PM * Novolog 10 units w/ breakfast + 18 units w/ lunch + 18 units w/ dinner * A1c = 7.5% 07/16/21 ASSESSMENT: 07/27 * BSGs remain well controlled with adjustments to NPH as steroids escalated to methylpred 125mg q6h. * Renal function continues to deteriorate; plan for HD today which anticipated to increase insulin sensitivity. Plan to reduce tonight's NPH dose for a TDD reduction of ~ 20%. 07/25 * BSGs reasonable well controlled over last 24 hrs. Mild hyperglycemia observed despite being NPO. She likely needs larger basal insulin dose with current stressors * Solu-Medrol dose has been increased to 125mg TID - will increase NPH dose slightly to combat steroid induced hyperglycemia. Will refrain from increasing Lantus dose as well given ongoing NPO status. * Correctional Novolog dose will also be increased slightly as this will help control BSGs until basal deficiency corrected 07/24 * BSGs fairly well controlled given the events of the last 24 hrs * Patient was extubated yesterday, however became hypertensive and developed hemoptysis, concern for flash pulm edema. * Steroid has been changed from dexamethasone 6mg IV Q 12 hrs to methylprednisolone 80mg IV TID. * Patient is NPO at this time. Will need a swallow eval. Per RN, pt remains lethargic and may not be able to eat today. * Will proceed with using NPH BID as previously order, but hold Lantus this AM...until we see BSG trends while NPO. Home basal insulin doses were substantial so I think she will tolerating both the Lantus and NPH. * Plan to continue Novolog "severe" stress wt based doses for now 07/23 * BSGs well controlled 07/22 with current insulin orders * Dexamethasone 6mg IV BID resumed this AM - will continue NPH BID * Patient extubated late this AM. Tube feeds now on hold. May need to titrate down insulin doses if NPO for prolonged period of time. PLAN FOR INPATIENT GLYCEMIC CONTROL: * Basal insulin * Lantus 15 units SQ Q AM * NPH 35 units SQ this AM, and 15units qPM. * Bolus insulin * NovoLog per scale Q 4 hrs * Goal Range: Low 110 mg/dL - High 140 mg/dL * Correction Factor: 8 mg/dL/unit * Nutritional / Prandial insulin per carb ratio of 1 unit per 3 grams CHO consumed PLAN FOR DISCHARGE: * HbA1c of 7.5% is likely adequate for patient based on age and comorbidities * Reasonable to continue home regimen at discharge provided patient's PO intake is near baseline
[2021-07-27 15:03] LABS: ANA Screen NEGATIVE (NEGATIVE)
--- NOTE | 2021-07-27 17:36 | Hospitalist Progress Note ---
Date of Service July 27, 2021 Assessment & Plan (1) Respiratory failure with hypoxia: (2) COVID-19: Plan: Patient vaccinated fully against Covid, last dose November 2020 Plan: Acute on chronic hypoxic respiratory failure ARDS secondary to COVID-19 Vaccinated against Covid, last dose November 2020 -CXR:Extensive bilateral airspace opacities which favor an infectious process such as viral pneumonia. Radiographic follow-up to ensure resolution is recommended. Procalcitonin negative Not a candidate for remdesivir Completed dexamethasone course Appreciate critical care input Patient had respiratory distress post extubation, developed hemoptysis Heparin SQ held due to Hemoptysis CTA today showed extensive groundglass opacities are present throughout both lungs characteristic of a viral type pneumonitis and Covid 19 pneumonia. Continue Solumedrol for possible diffuse alveolar hemorrhage Serological work-up for autoimmune disease pending Continue Zosyn Concern for Vasculitis Prognosis guarded Reintubated on07/25/21 60% FiO2, 10 of PEEP Neuromuscular blockade discontinued No improvement with proning If no improvement with steroid therapy, plan for plasmapheresis/IVIG as per critical care Possible flash pulmonary edema Lasix as needed nicardipine drip given Atrial Fibrillation Rate controlled Monitor Mild hyponatremia Sodium: 134>>140> 142 Sodium level normalized ASPEN on CKD III Baseline 1.5-1.7; presenting creatinine 1.93 Hold nephrotoxic including torsemide and spironolactone Cr: 2.75>4.85 ATN versus acute glomerulonephritis, concern for vasculitis Appreciate nephrology input Prognosis guarded Monitor renal function Renal function continues to worsen May need [employer] CAD Continue statin Aspirin held DM II SSI, glycemic pharmacy DVT Px: Heparin SQ--Held due to Hemoptysis CODE STATUS Full code for now Admission and Anticipated Discharge Date Admission Date: July 15, 2021 Subjective Patient is seen and examined at bedside Remains Intubated Currently on 60% FiO2, 10 PEEP Updated patient's daughter over the phone On fentanyl, propofol for sedation Tube feeds on hold Plan for dialysis catheter placement Renal function continues to worsen Review of Systems Review of Systems: All systems reviewed & are unremarkable except as noted in Subjective Physical Exam Physical Exam: Physical Exam: Vitals signs as noted above General Appearance:Obese, Sedated and intubated Head: normocephalic, Atraumatic Eyes: normal inspection Neck: supple, Trachea midline Respiratory/Chest: Decreased course breath sounds Cardiovascular: Irregularly irregular,No murmur Abdomen/GI:Soft, Non tender, Bowel sounds present Extremities/Musculoskeletal:normal inspection, no edema Neurologic/Psych:Intubated Skin: normal color, warm Results & Data Results & Data ([facility]) Vital Signs (Past 12 Hours) Vital Signs Temp Pulse Resp Pulse Ox 07/27/21 16:00 68 26 H 92 07/27/21 15:00 62 26 H 92 07/27/21 14:45 66 26 H 92 07/27/21 14:00 64 26 H 92 07/27/21 13:00 61 26 H 91 07/27/21 12:00 61 26 H 92 07/27/21 11:00 62 26 H 92 07/27/21 10:43 92 H 26 H 66 L 07/27/21 10:00 62 26 H 92 07/27/21 09:00 76 26 H 92 07/27/21 08:00 36.5 C 64 26 H 91 07/27/21 07:42 26 H 07/27/21 07:15 36.2 C L 61 26 H 91 07/27/21 07:00 36.2 C L 61 26 H 91 07/27/21 06:45 36.2 C L 63 26 H 92 07/27/21 06:30 36.2 C L 64 26 H 92 07/27/21 06:15 36.2 C L 63 26 H 92 07/27/21 06:00 36.3 C L 66 26 H 91 07/27/21 05:45 76 26 H 90 Laboratory Results Short CBC 07/27/21 Range/Units 08:42 WBC 11.22 H (4.8-10.8) K/uL Hgb 10.0 L (12.0-16.0) g/dL Hct 29.7 L (37-47) % Plt Count 90 L (130-400) K/uL BMP 07/27/21 08:42 Sodium 142 Potassium 4.7 Chloride 112 H Carbon Dioxide 17 L BUN 146 H Creatinine 4.85 H* D Glucose 122 H Calcium 8.4 L (1) Respiratory failure with hypoxia Chronicity: acute Qualified Code(s): J96.01 - Acute respiratory failure with hypoxia
[2021-07-27] MEDS: INSULIN ASPART 100 UNITS/ML VIAL SC SCH ×2 (17:42→20:31)
[2021-07-28] MEDS: INSULIN ASPART 100 UNITS/ML VIAL SC SCH ×6 (00:09→20:05)
[2021-07-28] MEDS: ARTIFICIAL TEARS OP OINT 3.5 GM TUBE OP SCH ×5 (00:10→21:27)
[2021-07-28] MEDS: methylPREDNISolone 125 MG in SYRINGE 0 ML IV SCH ×3 (00:10→13:10)
[2021-07-28] MEDS: propofoL 1,000 MG/100 ML VIAL IV SCH ×5 (03:38→22:59)
[2021-07-28 03:44] LABS: iSTAT Art Bld Gas pCO2 Correct 35 mmHg (35-46); iSTAT Art Bld Gas pH Corrected 7.322 (7.35-7.45); iSTAT Arterial Blood Gas HCO3 18 meg/L (19-24); iSTAT Arterial Blood Gas pCO2 36 mmHg (35-46); iSTAT Arterial Blood Gas pH 7.32 (7.35-7.45); iSTAT Arterial Blood Gas pO2 70 mmHg (80-95); iSTAT Arterial Blood Gas pO2 C 68; iSTAT Carbon Dioxide 20 mmol/L (24-31); iSTAT FiO2 50 %; iSTAT Hematocrit 30 % (37-47); iSTAT Hemoglobin 10.2 g/dl (12.0-16.0); iSTAT Potassium 4.9 mmol/L (3.3-5.0); iSTAT Site Art Line; iSTAT Sodium 137 mmol/L (135-144)
[2021-07-28 04:42] LABS: HBSAG NON-REACTIVE (NON-REACTIVE); Hepatitis B Core Antibody IgM NON-REACTIVE (NON-REACTIVE)
[2021-07-28 06:53] LABS: Hematocrit (blood only) 31.6 % (37-47); Hemoglobin 10.3 g/dL (12.0-16.0); Mean Corpuscular Hemoglobin 31.3 pg (25-34); Mean Corpuscular Hgb Conc 32.6 g/dL (32-36); Mean Platelet Volume 12.6 fL (7.4-10.4); Nucleated RBC # (auto) 0.09 K/uL (0-0); Nucleated RBC % (auto) 0.7 %; Platelet Count 78 K/uL (130-400); RDW Coefficient of Variation 15.2 % (11.5-14.5); RDW Standard Deviation 53.3 fL (36.4-46.3); Red Blood Count 3.29 M/uL (4.2-5.4); White Blood Count 12.12 K/uL (4.8-10.8)
--- NOTE | 2021-07-28 07:51 | XRay Report ---
XR chest 1V portable CLINICAL HISTORY: resp failure. Follow-up bilateral airspace opacities COMPARISON STUDY: 07/27/2021 TECHNIQUE: 1 view of the chest FINDINGS: Single frontal view of the chest demonstrates the cardiomediastinal silhouette to be within normal li mits. Cardiac pacer is again seen. Tubes and catheters appear unchanged. Extensive bilateral airspace opacities are again seen which are now increased on the right. There is minimal blunting of the righ t costophrenic angle as well. There is no evidence for vascular congestion. There is no acute osseous pathology. IMPRESSION: Worsening of alveolar opacities involving the right lung. ACT 112: Negative or not required by law. Electronically signed by: Ashutosh Medeiros M.D. 07/28/2021 7:50 AM
[2021-07-28 07:58] LABS: BUN Creatinine Ratio 30.1 (10-20); Calcium 8.7 mg/dl (8.5-10.1); Est GFR (African American) 9.5 ml/min; Est GFR (Non-African American) 8.2 ml/min; Magnesium 3.5 mg/dl (1.8-2.4); Phosphorus 6.6 mg/dl (2.5-4.9)
[2021-07-28] MEDS ORDERED: SODIUM CHLORIDE 0.9% 1000ML 1,000 ML IV PRN (08:22)
[2021-07-28] MEDS: fentaNYL DRIP 1,250 MCG/250 ML BAG IV SCH ×2 (08:46→22:59)
[2021-07-28] MEDS: GABAPENTIN 250 MG/5 ML 470 ML BTL PO SCH ×3 (08:47→21:26)
[2021-07-28] MEDS: MULTI VIT W/MINERALS LIQUID 15 ML UDP NG SCH (08:47)
[2021-07-28] MEDS: INSULIN GLARGINE SOLOSTAR 100 UNITS/ML 3 ML PEN SC SCH (08:48)
[2021-07-28] MEDS: ATORVASTATIN 40 MG TAB PO SCH (08:48)
[2021-07-28] MEDS: INSULIN HUMAN NPH SC SCH (08:48)
[2021-07-28] MEDS ORDERED: HEPARIN SOD (PORCINE) 1000 UNIT/ML IV SCH (09:00)
[2021-07-28] MEDS ORDERED: INSULIN GLARGINE SOLOSTAR 100 UNITS/ML 3 ML PEN SC SCH (09:00)
--- NOTE | 2021-07-28 09:48 | Nephrology Progress Note ---
Date of Service July 28, 2021 Assessment & Plan (1) ASPEN (acute kidney injury): Plan: Clinically consistent with ATN versus +/- GN. remains oliguric. LIJ TDC placed 07/27. First HD treatment completed yesterday. Anticipate second treatment later today versus tomorrow AM. Currently oxygenating well and hemodynamically stable. Electrolytes acceptable. ANCA and aBM pending. Remains on methylprednisolone 125 q 6 hrs. (2) CKD (chronic kidney disease) stage 3, GFR 30-59 ml/min: Plan: CKD III A1 attributed to DKD. Baseline creatinine ~1.5 mg/dL. Follows with Dr. Fountain as outpatient. (3) COVID-19: Plan: Remains on methylprednisolone 125 mg Q 6 hrs. (4) Respiratory failure with hypoxia: Plan: Plan of care reviewed with Dr. Jiang. Maintain even to negative fluid balance with support of [employer]. Admission and Anticipated Discharge Date Admission Date: July 15, 2021 Subjective HD completed yesterday evening. Net UF 2 L. Remains oliguric. Hemodynamics stable. Review of Systems Review of Systems: Unobtainable due to endotracheal tube and Unobtainable due to reduced consciousness Physical Exam Constitutional: + ill appearing and + mechanically ventilated; no acute distress Eyes: + anicteric sclerae; no corneal abnormality ENMT: ETT Neck: normal visual inspection and trachea midline Respiratory: symmetric chest movement Auscultation: + rhonchi Cardiovascular: Rate/Rhythm: regular rate Heart Sounds: normal S1 and normal S2 Extremities: + edema Gastrointestinal (Abdomen): Inspection/Auscultation: normal bowel sounds Percussion/Palpation: abdomen soft Musculoskeletal: Extremities: no cyanosis and no clubbing Skin: normal turgor; no lesions Neurologic: Motor/Sensory: no tremor and no asterixis Results & Data ([facility]) Vital Signs (Past 12 Hours) Vital Signs Temp Pulse Resp Pulse Ox 07/28/21 07:52 36.4 C L 07/28/21 07:15 62 26 H 92 07/28/21 07:00 58 L 26 H 92 07/28/21 06:45 61 26 H 92 07/28/21 06:30 65 26 H 93 07/28/21 06:18 67 26 H 92 07/28/21 06:15 62 26 H 92 07/28/21 06:09 36.5 C 07/28/21 06:00 70 26 H 92 07/28/21 05:45 70 26 H 91 07/28/21 05:30 75 26 H 91 07/28/21 05:15 76 26 H 92 07/28/21 05:00 73 26 H 91 07/28/21 04:45 63 26 H 91 07/28/21 04:30 65 26 H 91 07/28/21 04:15 66 26 H 91 07/28/21 04:01 36.5 C 07/28/21 04:00 67 26 H 91 07/28/21 03:45 68 26 H 91 07/28/21 03:30 62 26 H 91 07/28/21 03:15 65 26 H 91 07/28/21 03:00 68 26 H 91 07/28/21 02:45 72 26 H 91 07/28/21 02:34 27 H 91 07/28/21 02:30 64 26 H 91 07/28/21 02:15 77 26 H 91 07/28/21 02:00 66 26 H 91 07/28/21 01:45 69 26 H 91 07/28/21 01:30 66 26 H 91 07/28/21 01:15 64 26 H 91 07/28/21 01:00 72 52 H 91 07/28/21 00:45 72 26 H 91 07/28/21 00:30 67 26 H 91 07/28/21 00:20 82 28 H 93 07/28/21 00:17 36.5 C 07/28/21 00:15 58 L 26 H 90 07/28/21 00:00 66 26 H 92 07/27/21 23:45 71 26 H 92 07/27/21 23:30 67 26 H 91 07/27/21 23:15 67 26 H 92 07/27/21 23:00 81 30 H 93 07/27/21 22:45 81 29 H 93 07/27/21 22:30 80 25 H 93 07/27/21 22:15 64 26 H 93 07/27/21 22:00 69 26 H 93 Laboratory Results Laboratory Results - last 24 hr 07/23/21 07/27/21 07/27/21 14:43 08:42 08:42 WBC 11.22 H RBC 3.14 L Hgb 10.0 L POC Hgb Hct 29.7 L POC Hct MCV 94.6 MCH 31.8 MCHC 33.7 RDW Std Deviation 51.9 H RDW Coeff of Favian 15.1 H Plt Count 90 L MPV 12.7 H Absolute Nucleated RBC 0.06 H Nucleated RBC % (auto) 0.5 Platelet Estimate Decreased L Sample Site POC pH POC pCO2 POC pO2 POC HCO3 POC Total CO2 POC Base Excess ABG pH (Temp Correct) ABG pCO2 (Temp Corrct POC ABG pO2 at Pt Temp POC ABG O2 Sat Edin Test O2 Delivery Device POC O2 Rate POC FiO2 Tidal Volume PEEP POC Sodium Sodium 142 POC Potassium Potassium 4.7 Chloride 112 H Carbon Dioxide 17 L Anion Gap 14.0 H BUN 146 H Creatinine 4.85 H* D Est Cr Clr Drug Dosing 10.7 Est GFR ( Amer) 9.2 Est GFR (Non-Af Amer) 7.9 BUN/Creatinine Ratio 30.5 H Glucose 122 H POC Glucose Calcium 8.4 L Phosphorus 5.2 H D Magnesium 3.6 H Procalcitonin OLI Screen NEGATIVE Hep Bs Antigen Hep Bs Antibody Hep Bs Antibody, Quant Hep B Core IgM Ab 07/27/21 07/27/21 07/27/21 08:42 11:33 11:35 WBC RBC Hgb POC Hgb Hct POC Hct MCV MCH MCHC RDW Std Deviation RDW Coeff of Favian Plt Count MPV Absolute Nucleated RBC Nucleated RBC % (auto) Platelet Estimate Sample Site POC pH POC pCO2 POC pO2 POC HCO3 POC Total CO2 POC Base Excess ABG pH (Temp Correct) ABG pCO2 (Temp Corrct POC ABG pO2 at Pt Temp POC ABG O2 Sat Edin Test O2 Delivery Device POC O2 Rate POC FiO2 Tidal Volume PEEP POC Sodium Sodium POC Potassium Potassium Chloride Carbon Dioxide Anion Gap BUN Creatinine Est Cr Clr Drug Dosing Est GFR ( Amer) Est GFR (Non-Af Amer) BUN/Creatinine Ratio Glucose POC Glucose 165 H Calcium Phosphorus Magnesium Procalcitonin 0.68 H OLI Screen Hep Bs Antigen NON-REACTIVE Hep Bs Antibody Hep Bs Antibody, Quant Hep B Core IgM Ab NON-REACTIVE 07/27/21 07/27/21 07/27/21 11:35 14:53 17:06 WBC RBC Hgb POC Hgb Hct POC Hct MCV MCH MCHC RDW Std Deviation RDW Coeff of Favian Plt Count MPV Absolute Nucleated RBC Nucleated RBC % (auto) Platelet Estimate Sample Site POC pH POC pCO2 POC pO2 POC HCO3 POC Total CO2 POC Base Excess ABG pH (Temp Correct) ABG pCO2 (Temp Corrct POC ABG pO2 at Pt Temp POC ABG O2 Sat Edin Test O2 Delivery Device POC O2 Rate POC FiO2 Tidal Volume PEEP POC Sodium Sodium POC Potassium Potassium Chloride Carbon Dioxide Anion Gap BUN Creatinine Est Cr Clr Drug Dosing Est GFR ( Amer) Est GFR (Non-Af Amer) BUN/Creatinine Ratio Glucose POC Glucose 184 H 199 H Calcium Phosphorus Magnesium Procalcitonin OLI Screen Hep Bs Antigen Hep Bs Antibody Non-Immune Hep Bs Antibody, Quant < 3.10 L Hep B Core IgM Ab 07/27/21 07/28/21 07/28/21 20:27 00:03 03:25 WBC RBC Hgb POC Hgb 10.2 L Hct POC Hct 30 L MCV MCH MCHC RDW Std Deviation RDW Coeff of Favian Plt Count MPV Absolute Nucleated RBC Nucleated RBC % (auto) Platelet Estimate Sample Site Art Line POC pH 7.32 L POC pCO2 36 POC pO2 70 L POC HCO3 18 L POC Total CO2 20 L POC Base Excess -8.0 ABG pH (Temp Correct) 7.322 L ABG pCO2 (Temp Corrct 35 POC ABG pO2 at Pt Temp 68 POC ABG O2 Sat 92.0 Edin Test NA O2 Delivery Device Ventilator POC O2 Rate 26 POC FiO2 50 Tidal Volume 380 PEEP 8 POC Sodium 137 Sodium POC Potassium 4.9 Potassium Chloride Carbon Dioxide Anion Gap BUN Creatinine Est Cr Clr Drug Dosing Est GFR ( Amer) Est GFR (Non-Af Amer) BUN/Creatinine Ratio Glucose POC Glucose 207 H 231 H Calcium Phosphorus Magnesium Procalcitonin OLI Screen Hep Bs Antigen Hep Bs Antibody Hep Bs Antibody, Quant Hep B Core IgM Ab 07/28/21 07/28/21 07/28/21 04:02 06:05 06:05 WBC 12.12 H RBC 3.29 L Hgb 10.3 L POC Hgb Hct 31.6 L POC Hct MCV 96.0 MCH 31.3 MCHC 32.6 RDW Std Deviation 53.3 H RDW Coeff of Favian 15.2 H Plt Count 78 L MPV 12.6 H Absolute Nucleated RBC 0.09 H Nucleated RBC % (auto) 0.7 Platelet Estimate Sample Site POC pH POC pCO2 POC pO2 POC HCO3 POC Total CO2 POC Base Excess ABG pH (Temp Correct) ABG pCO2 (Temp Corrct POC ABG pO2 at Pt Temp POC ABG O2 Sat Edin Test O2 Delivery Device POC O2 Rate POC FiO2 Tidal Volume PEEP POC Sodium Sodium 137 POC Potassium Potassium 5.0 Chloride 107 Carbon Dioxide 18 L Anion Gap 12.0 H BUN 142 H Creatinine 4.73 H* Est Cr Clr Drug Dosing 11.0 Est GFR ( Amer) 9.5 Est GFR (Non-Af Amer) 8.2 BUN/Creatinine Ratio 30.1 H Glucose 189 H POC Glucose 186 H Calcium 8.7 Phosphorus 6.6 H D Magnesium 3.5 H Procalcitonin OLI Screen Hep Bs Antigen Hep Bs Antibody Hep Bs Antibody, Quant Hep B Core IgM Ab 07/28/21 07:45 WBC RBC Hgb POC Hgb Hct POC Hct MCV MCH MCHC RDW Std Deviation RDW Coeff of Favian Plt Count MPV Absolute Nucleated RBC Nucleated RBC % (auto) Platelet Estimate Sample Site POC pH POC pCO2 POC pO2 POC HCO3 POC Total CO2 POC Base Excess ABG pH (Temp Correct) ABG pCO2 (Temp Corrct POC ABG pO2 at Pt Temp POC ABG O2 Sat Edin Test O2 Delivery Device POC O2 Rate POC FiO2 Tidal Volume PEEP POC Sodium Sodium POC Potassium Potassium Chloride Carbon Dioxide Anion Gap BUN Creatinine Est Cr Clr Drug Dosing Est GFR ( Amer) Est GFR (Non-Af Amer) BUN/Creatinine Ratio Glucose POC Glucose 203 H Calcium Phosphorus Magnesium Procalcitonin OLI Screen Hep Bs Antigen Hep Bs Antibody Hep Bs Antibody, Quant Hep B Core IgM Ab PG Care Time/CCT Total # of Minutes Spent Total Time Spent with Patient: Total time spent is greater than 50% in coordination of care (as documented) at patient's floor/unit and/or counseling patient: Coding Level of Care Code 87910 Subseq Hosp Care Lvl 3 Diagnoses ASPEN (acute kidney injury) N17.9 CKD (chronic kidney disease) stage 3, GFR 30-59 ml/min N18.3 COVID-19 U07.1 Respiratory failure with hypoxia J96.01 Chronicity: acute (1) Respiratory failure with hypoxia Chronicity: acute Qualified Code(s): J96.01 - Acute respiratory failure with hypoxia
[2021-07-28] MEDS: POLYETHYLENE (MIRALAX) 17 GM PACK PO SCH (10:28)
[2021-07-28] MEDS: PANTOprazole 40 MG in SYRINGE 0 ML IV SCH (13:10)
--- NOTE | 2021-07-28 14:37 | Procedure Note ---
Procedure Note Date of Service July 28, 2021 Note Procedure: Fiberoptic bronchoscopy Bronchoalveolar lavage Provider: Sal Jiang MD Consent: The procedure was emergent. Patient unable to provide consent as she was intubated and on the ventilator Procedure: Patient was intubated in the ICU. Patient unable to provide consent and family not immediately available. Appropriate radiographic studies had been reviewed prior to the procedure. Standard monitoring was applied. Patient was placed on 100% FiO2 on the ventilator. The fiberoptic scope was advanced through the endotracheal tube via the Bodai adapter. The tube was sounded and found to be in good position approximately 2 to 3 cm above the ashlee. The distal trachea was normal with some mucoid secretions. Main ashlee was sharp. There were mucoid secretions present throughout the trachea and right and may mainstem bronchi which were collected in a trap for microbiologic analysis. There did not appear to be any blood in the airways. A sequential and systematic examination of the lower airways was conducted. The right-sided airways were normal in anatomic configuration and the mucosa appeared mildly inflamed. Left-sided airways were normal in anatomic configuration and widely patent and the mucosa appeared mildly inflamed. After the inspection bronchoscopy was completed, the scope was wedged into the medial segment of the right middle lobe. A bronchial velar lavage was conducted with instillation of 3 aliquots 60 cc sterile saline. Return did not appear significantly bloody but was cloudy. There was no evidence of pulmonary hemorrhage. The bronchoscope was then removed from the airways. The patient tolerated the procedure well without obvious complication. Patient remains intubated in the ICU on the ventilator Impression: 1. Endotracheal tube in good position. 2. Mucoid secretions present throughout the trachea and right and left mainstem bronchi. 3. Successful BAL right middle lobe without evidence of pulmonary hemorrhage. Await microbiologic and cytologic analysis Coding CPT Codes Pulmonary/Thoracic - Pulmonary and Thoracic: 02286 Dx bronchoscopy/BAL ([id number][place] [facility] [place]) Pulmonary/Thoracic Procedure 1: Pulmonary and Thoracic: 47322 Dx bronchoscopy/BAL
--- NOTE | 2021-07-28 16:41 | Critical Care Progress Note ---
Date of Service July 28, 2021 Assessment & Plan (1) COVID-19: (2) Respiratory failure with hypoxia: (3) CKD (chronic kidney disease) stage 3, GFR 30-59 ml/min: (4) Hx of heart artery stent: (5) Hemoptysis: Plan: Impression: 80-year-old female fully vaccinated for Covid admitted to the facility 07/15/2021 with acute on chronic hypoxemic respiratory failure. She was intubated 07/20/2021 and extubated 07/23/2021 but unfortunately then developed hemoptysis and was reintubated 07/25/2021. 24-hour events: Patient underwent dialysis yesterday after placement of an HD line. Bronchoscopy with BAL was performed in the right middle lobe today. There were mucoid secretions present but no evidence of alveolar hemorrhage. She continues to have a high oxygen requirement. Recommendations: Neurologic:Intubated and Sedated for mechanical ventilation. Continue sedation with propofol and fentanyl. No indication for paralytics currently. Depending on clinical response, may need to consider tracheostomy. May need additional sedation depending on clinical course. Pulmonary: Hypoxic respiratory failure secondary to Covid pneumonia. Patient extubated after initial trial mechanical ventilation, had respiratory distress post extubation with associated hemoptysis, BIPAP failed and re-intubated on 07/25/21 and then proned. Worsening of biilateral interstitial infiltrates and groundglass opacity seen with small bilateral effusions. Currently receiving methylprednisone 125 mg q6h for possibility of diffuse alveolar hemorrhage however this was not identified on bronchoscopy and I think we can taper down her steroids, will decrease to 60 every 8 today with plans for rapid taper over the next several days. OLI screen negative. ANCA and anti-GBM pending. Beta glucan ordered as well to evaluate for possible fungal process is still pending. Bronchoscopy specimen sent for cytology, cell count differential, PJP PCR as well as AFB, routine respiratory, fungal and viral cultures. She has not really responded to proning and will hold off on additional proning maneuvers. Current vent settings AC: 26/380/8/0.5 with a plateau pressure of 25. Most recent blood gas:7.32/36/70. P to F ratio:140 with poor compliance. D#3 MV (second course, D#7 total MV). Given lack of clinical progress, will need to discuss with family trach. May need LTAC. Cardiovascular: She has an extensive history of coronary artery disease. Echo with LVEF of 55 to 60%. Mild aortic regurgitation. Severe mitral annular calcification. Moderate mitral regurgitation. She remains off pressors, her Gastrointestinal: OGT. Dietary managing tube feeding with bowel regimen. Renal: Appreciate nephrology input. HD yesterday and likely again today. Awaiting serologies. Would benefit from ultrafiltration if possible. Infectious disease: Completed 8 days of Zosyn. Antibiotics discontinued 07/27. Blood cultures from the fifth of show no growth to date. Await bronchoscopy specimens and cultures. Hematologic: Hemoptysis resolved. Hemoglobin stable. INR within normal limits. PTT remains mildly elevated. Endocrine: Hyperglycemia management per ICU pharmacist. VTE prophylaxis: Okay to restart subcu heparin for DVT prophylaxis CODE STATUS: Full code. Disposition: Remain in the ICU. Prognosis is guarded. I updated the daughter. She requested an in person meeting with her 2 sisters, me, and palliative care. Tentatively set up for 3 PM tomorrow. Will address CODE STATUS at that point time but they appear to be leaning away from aggressive interventions as they state their mother would not want long-term care and doubt that she would want a tracheostomy. I have personally spent 84 minutes of critical care time in the direct management of this patient. This is a life/limb threatening event. This includes time spent evaluating patient, direct bedside care, chart review, placing orders, interpretation of diagnostic studies, discussion with consultants, patient, and family members, as well as other required patient management activities. This time is exclusive of all separately billable procedures, and teaching time and separate from and in addition to any other critical care service time. Admission and Anticipated Discharge Date Admission Date: July 15, 2021 Subjective Intubated and sedated Review of Systems Review of Systems: Unobtainable due to endotracheal tube Physical Exam Constitutional: + morbidly obese and + mechanically ventilated; no acute distress Eyes: + anicteric sclerae Neck: normal visual inspection and trachea midline Respiratory: symmetric chest movement Auscultation: + rhonchi Cardiovascular: Rate/Rhythm: regular rate Heart Sounds: normal S1 and normal S2 Extremities: + edema Gastrointestinal (Abdomen): Inspection/Auscultation: normal bowel sounds Percussion/Palpation: abdomen soft Musculoskeletal: Extremities: no cyanosis and no clubbing Skin: Multiple ecchymoses Neurologic: Intubated and sedated Results & Data Results & Data ([facility]) Vital Signs (Past 12 Hours) Vital Signs Temp Pulse Resp Pulse Ox 07/28/21 15:37 36.4 C L 07/28/21 15:00 61 26 H 92 07/28/21 14:00 62 26 H 92 07/28/21 13:00 36.3 C L 60 26 H 93 07/28/21 12:00 62 26 H 92 07/28/21 11:55 36.4 C L 07/28/21 11:38 61 26 H 93 07/28/21 11:00 60 26 H 93 07/28/21 10:00 73 26 H 93 07/28/21 09:00 60 26 H 93 07/28/21 08:00 63 26 H 92 07/28/21 07:52 36.4 C L 07/28/21 07:15 62 26 H 92 07/28/21 07:00 58 L 26 H 92 07/28/21 06:45 61 26 H 92 07/28/21 06:30 65 26 H 93 07/28/21 06:18 67 26 H 92 07/28/21 06:15 62 26 H 92 07/28/21 06:09 36.5 C 07/28/21 06:00 70 26 H 92 07/28/21 05:45 70 26 H 91 07/28/21 05:30 75 26 H 91 07/28/21 05:15 76 26 H 92 07/28/21 05:00 73 26 H 91 07/28/21 04:45 63 26 H 91 Critical Care Results & Data Vital Signs (Past 12 Hours) Vital Signs Temp Pulse Resp Pulse Ox 07/28/21 15:37 36.4 C L 07/28/21 15:00 61 26 H 92 07/28/21 14:00 62 26 H 92 07/28/21 13:00 36.3 C L 60 26 H 93 07/28/21 12:00 62 26 H 92 07/28/21 11:55 36.4 C L 07/28/21 11:38 61 26 H 93 07/28/21 11:00 60 26 H 93 07/28/21 10:00 73 26 H 93 07/28/21 09:00 60 26 H 93 07/28/21 08:00 63 26 H 92 07/28/21 07:52 36.4 C L 07/28/21 07:15 62 26 H 92 07/28/21 07:00 58 L 26 H 92 07/28/21 06:45 61 26 H 92 07/28/21 06:30 65 26 H 93 07/28/21 06:18 67 26 H 92 07/28/21 06:15 62 26 H 92 07/28/21 06:09 36.5 C 07/28/21 06:00 70 26 H 92 07/28/21 05:45 70 26 H 91 07/28/21 05:30 75 26 H 91 07/28/21 05:15 76 26 H 92 07/28/21 05:00 73 26 H 91 07/28/21 04:45 63 26 H 91 Lab & Micro Results (Past 24 Hours) RBC 3.29 M/uL (4.2-5.4) L 07/28/21 WBC 12.12 K/uL (4.8-10.8) H 07/28/21 Hgb 10.3 g/dL (12.0-16.0) L 07/28/21 Hct 31.6 % (37-47) L 07/28/21 MCV 96.0 fL (80-100) 07/28/21 MCH 31.3 pg (25-34) 07/28/21 MCHC 32.6 g/dL (32-36) 07/28/21 RDW Standard Deviation 53.3 fL (36.4-46.3) H 07/28/21 RDW Coefficient of Variation 15.2 % (11.5-14.5) H 07/28/21 Plt Count 78 K/uL (130-400) L 07/28/21 MPV 12.6 fL (7.4-10.4) H 07/28/21 Nucleated Red Blood Cells % (auto) 0.7 % 07/28/21 Nucleated RBC Absolute Count (auto) 0.09 K/uL (0-0) H 07/28/21 Na 137 mmol/L (136-145) 07/28/21 K 5.0 mmol/L (3.5-5.1) 07/28/21 Cl 107 mmol/L (98-107) 07/28/21 CO2 18 mmol/L (21-32) L 07/28/21 Anion Gap 12.0 (3-11) H 07/28/21 BUN 142 mg/dl (7-18) H 07/28/21 Creatinine 4.73 mg/dl (0.6-1.2) H* 07/28/21 Estimated GFR ( Amer) 9.5 ml/min 07/28/21 Estimated GFR (Non-Af Amer) 8.2 ml/min 07/28/21 BUN/Creatinine Ratio 30.1 (10-20) H 07/28/21 Glu 189 mg/dl (70-99) H 07/28/21 Ca 8.7 mg/dl (8.5-10.1) 07/28/21 Phosphorus Level 6.6 mg/dl (2.5-4.9) H 07/28/21 Mg 3.5 mg/dl (1.8-2.4) H 07/28/21 06:05 07/28/21 Calcium Level 8.7 mg/dl (8.5-10.1) 07/28/21 06:05 07/28/21 Edin Test NA 07/28/21 03:25 07/28/21 Microbiology 07/27/21 19:00 Gram Stain - Final Sputum,Vent Suction Sputum Culture - Preliminary Light normal elda present, final report to follow. 07/26/21 17:22 Aerobic Blood Culture - Preliminary Blood No growth in Aerobic bottle after 24 hours. Anaerobic Blood Culture - Final 07/26/21 17:22 Aerobic Blood Culture - Preliminary Blood No growth in Aerobic bottle after 24 hours. Anaerobic Blood Culture - Preliminary No growth in Anaerobic bottle after 24 hours. Diagnostic Findings (Past 24 Hours) Chest X-Ray 07/28/21 19:00 XR chest 1V portable CLINICAL HISTORY: resp failure. Follow-up bilateral airspace opacities COMPARISON STUDY: 07/27/2021 TECHNIQUE: 1 view of the chest FINDINGS: Single frontal view of the chest demonstrates the cardiomediastinal silhouette to be within normal limits. Cardiac pacer is again seen. Tubes and catheters appear unchanged. Extensive bilateral airspace opacities are again seen which are now increased on the right. There is minimal blunting of the right costophrenic angle as well. There is no evidence for vascular congestion. There is no acute osseous pathology. IMPRESSION: Worsening of alveolar opacities involving the right lung. ACT 112: Negative or not required by law. Electronically signed by: Ashutosh Medeiros M.D. 07/28/2021 7:50 AM I & O Totals 24 Hours 07/27/21 07/28/21 07/29/21 06:59 06:59 06:59 Intake Total 1416.277 / 3914.267 9808.020 / 1379.020 442.000 / 442.000 Output Total 115 / 115 340 / 340 50 / 50 Balance 1301.277 / 2047.339 4758.020 / 1039.020 392.000 / 392.000 Cumulative 07/15/21 11:42 thru 07/28/21 15:00 Intake Total 33617.449 Output Total 04725 Balance 1563.449 RT Ventilator Mngmt (Last Documented) Ventilator Ordered Settings Ventilator Support Mode Assist Control 07/28/21 12:00 Respiratory Rate 26 07/28/21 15:00 Ventilator Tidal Volume 380 07/28/21 12:00 Setting Minute Ventilation 9.5 07/28/21 11:38 Positive End Expiratory 8 07/28/21 12:00 Pressure Fraction of Inspired Oxygen 50 07/28/21 12:00 Peak Inspiratory Flow 47 07/27/21 19:07 Machine Comment FiO2 increased to 60% post ABG, 07/27/21 04:42 [employer] TRA[employer] aware Ventilator - PT Measurements Respiratory Rate 26 Exhaled Tidal Volume 380 Minute Ventilation 9.5 Peak Inspiratory Airway 28 Pressure Plateau Pressure 25 Respiratory Cycle Inspiratory: 1:2.5 Expiratory Ratio Inspiratory Phase Time 0.65 End-Tidal CO2 24 Static Lung Compliance 22.35 Dynamic Lung Compliance 19.00 Normal Static Lung Compliance 45.00 Patient Measurements Comment changes made by ANGELINA Florence Coding Level of Care Code Critical Care ea addt'l 30 min Diagnoses COVID-19 U07.1 Respiratory failure with hypoxia J96.01 Chronicity: acute CKD (chronic kidney disease) stage 3, GFR 30-59 ml/min N18.3 Hx of heart artery stent Z95.5 Hemoptysis R04.2 Time Spent (min) 84 Comment [id number] and [id number] (1) Respiratory failure with hypoxia Chronicity: acute Qualified Code(s): J96.01 - Acute respiratory failure with hypoxia
--- NOTE | 2021-07-28 16:48 | Hospitalist Progress Note ---
Date of Service July 28, 2021 Assessment & Plan (1) Respiratory failure with hypoxia: (2) COVID-19: Plan: Patient vaccinated fully against Covid, last dose November 2020 Plan: Acute on chronic hypoxic respiratory failure ARDS secondary to COVID-19 Vaccinated against Covid, last dose November 2020 -CXR:Extensive bilateral airspace opacities which favor an infectious process such as viral pneumonia. Radiographic follow-up to ensure resolution is recommended. Procalcitonin negative Not a candidate for remdesivir Completed dexamethasone course Appreciate critical care input Patient had respiratory distress post extubation, developed hemoptysis Heparin SQ held due to Hemoptysis CTA today showed extensive groundglass opacities are present throughout both lungs characteristic of a viral type pneumonitis and Covid 19 pneumonia. Continue Solumedrol for possible diffuse alveolar hemorrhage Serological work-up for autoimmune disease pending Continue Zosyn Concern for Vasculitis Prognosis guarded Reintubated on07/25/21 55% FiO2, 8 of PEEP Neuromuscular blockade discontinued No improvement with proning If no improvement with steroid therapy, plan for plasmapheresis/IVIG as per critical care Had bronchoscopy with bronchoalveolar lavage which showed no evidence of alveolar hemorrhage Follow-up cytology, cell count differential, PGP PCR, AFP, fungal and viral cultures of bronchial secretions Possible flash pulmonary edema Lasix as needed nicardipine drip discontinued Atrial Fibrillation Rate controlled Monitor Mild hyponatremia Sodium: 134>>140> 142>137 Sodium level normalized ASPEN on CKD III Baseline 1.5-1.7; presenting creatinine 1.93 Hold nephrotoxic including torsemide and spironolactone Cr: 2.75>4.85 ATN versus acute glomerulonephritis, concern for vasculitis Appreciate nephrology input Prognosis guarded Monitor renal function Renal function continues to worsen Had dialysis catheter placement on 07/27/21 Continue dialysis as per nephrology CAD Continue statin Aspirin held DM II SSI, glycemic pharmacy DVT Px: Heparin SQ--Held due to Hemoptysis CODE STATUS Full code for now Admission and Anticipated Discharge Date Admission Date: July 15, 2021 Subjective Patient is seen and examined at bedside Remains Intubated Patient had dialysis yesterday Plan for bronchoscopy with BAL today Currently on 55% FiO2, 8 PEEP On fentanyl, propofol for sedation Tube feeds Review of Systems Review of Systems: All systems reviewed & are unremarkable except as noted in Subjective Physical Exam Physical Exam: Physical Exam: Vitals signs as noted above General Appearance:Obese, Sedated and intubated Head: normocephalic, Atraumatic Eyes: normal inspection Neck: supple, Trachea midline Respiratory/Chest: Decreased course breath sounds Cardiovascular: Irregularly irregular,No murmur Abdomen/GI:Soft, Non tender, Bowel sounds present Extremities/Musculoskeletal:normal inspection, UE AND LE edema Neurologic/Psych:Intubated Skin: normal color, warm Results & Data Results & Data ([facility]) Vital Signs (Past 12 Hours) Vital Signs Temp Pulse Resp Pulse Ox 07/28/21 15:37 36.4 C L 07/28/21 15:00 61 26 H 92 07/28/21 14:00 62 26 H 92 07/28/21 13:00 36.3 C L 60 26 H 93 07/28/21 12:00 62 26 H 92 07/28/21 11:55 36.4 C L 07/28/21 11:38 61 26 H 93 07/28/21 11:00 60 26 H 93 07/28/21 10:00 73 26 H 93 07/28/21 09:00 60 26 H 93 07/28/21 08:00 63 26 H 92 07/28/21 07:52 36.4 C L 07/28/21 07:15 62 26 H 92 07/28/21 07:00 58 L 26 H 92 07/28/21 06:45 61 26 H 92 07/28/21 06:30 65 26 H 93 07/28/21 06:18 67 26 H 92 07/28/21 06:15 62 26 H 92 07/28/21 06:09 36.5 C 07/28/21 06:00 70 26 H 92 07/28/21 05:45 70 26 H 91 07/28/21 05:30 75 26 H 91 07/28/21 05:15 76 26 H 92 07/28/21 05:00 73 26 H 91 Laboratory Results Short CBC 07/28/21 Range/Units 06:05 WBC 12.12 H (4.8-10.8) K/uL Hgb 10.3 L (12.0-16.0) g/dL Hct 31.6 L (37-47) % Plt Count 78 L (130-400) K/uL BMP 07/28/21 06:05 Sodium 137 Potassium 5.0 Chloride 107 Carbon Dioxide 18 L BUN 142 H Creatinine 4.73 H* Glucose 189 H Calcium 8.7 (1) Respiratory failure with hypoxia Chronicity: acute Qualified Code(s): J96.01 - Acute respiratory failure with hypoxia
[2021-07-28] MEDS: NOVASOURCE RENAL 2.0 CAL 1000ML BAG OG SCH (16:50)
[2021-07-28] MEDS: methylPREDNISolone 60 MG in SYRINGE 0 ML IV SCH (18:47)
[2021-07-28] MEDS ORDERED: INSULIN HUMAN NPH SC SCH (21:00)
[2021-07-28] MEDS: HEPARIN SOD 5,000 UNIT/0.5 ML VIAL SQ SCH (21:27)
[2021-07-28] MEDS ORDERED: PROPOFOL BOLUS FROM BAG IV PRN (22:32)
[2021-07-28] MEDS ORDERED: STAT IV Infusion **Titration per Protocol STA (22:32)
[2021-07-29] MEDS: INSULIN ASPART 100 UNITS/ML VIAL SC SCH ×6 (00:43→20:14)
[2021-07-29] MEDS: ARTIFICIAL TEARS OP OINT 3.5 GM TUBE OP SCH ×3 (00:45→08:26)
[2021-07-29] MEDS: methylPREDNISolone 60 MG in SYRINGE 0 ML IV SCH ×4 (00:45→20:13)
[2021-07-29 02:20] LABS: ANCA Screen Negative (Negative); Anti-Glom Basement Antibody <1.0 AI (<1.0)
[2021-07-29] MEDS: propofoL 1,000 MG/100 ML VIAL IV SCH ×7 (04:11→22:44)
[2021-07-29 04:20] LABS: iSTAT Art Bld Gas pCO2 Correct 35 mmHg (35-46); iSTAT Art Bld Gas pH Corrected 7.305 (7.35-7.45); iSTAT Arterial Blood Gas HCO3 18 meg/L (19-24); iSTAT Arterial Blood Gas pCO2 37 mmHg (35-46); iSTAT Arterial Blood Gas pH 7.29 (7.35-7.45); iSTAT Arterial Blood Gas pO2 71 mmHg (80-95); iSTAT Arterial Blood Gas pO2 C 65; iSTAT Carbon Dioxide 19 mmol/L (24-31); iSTAT FiO2 55 %; iSTAT Hematocrit 27 % (37-47); iSTAT Hemoglobin 9.2 g/dl (12.0-16.0); iSTAT Potassium 5.3 mmol/L (3.3-5.0); iSTAT Site Art Line; iSTAT Sodium 135 mmol/L (135-144)
[2021-07-29 07:04] LABS: Hematocrit (blood only) 29.7 % (37-47); Hemoglobin 9.8 g/dL (12.0-16.0); Mean Corpuscular Hemoglobin 31.3 pg (25-34); Mean Corpuscular Volume 94.9 fL (80-100); Mean Platelet Volume 12.7 fL (7.4-10.4); Nucleated RBC # (auto) 0.09 K/uL (0-0); Nucleated RBC % (auto) 0.8 %; Platelet Count 64 K/uL (130-400); RDW Coefficient of Variation 15.3 % (11.5-14.5); RDW Standard Deviation 52.6 fL (36.4-46.3); Red Blood Count 3.13 M/uL (4.2-5.4); White Blood Count 11.29 K/uL (4.8-10.8)
[2021-07-29 07:05] LABS: Basophils # (auto) 0.01 K/uL (0-0.2); Basophils % (auto) 0.1 %; Echinocytes 1+; Immature Granulocytes # (auto) 0.07 K/uL (0.00-0.02); Immature Granulocytes % (auto) 0.6 %; Lymphocytes % (auto) 2.7 %; Monocytes # (auto) 0.29 K/uL (0.11-0.59); Monocytes % (auto) 2.6 %; Neutrophils # (auto) 10.62 K/uL (1.4-6.5); Platelet Estimate Decreased (Normal)
[2021-07-29 07:21] LABS: Calcium 8.1 mg/dl (8.5-10.1); Creatinine Clr Calc Pharmacy 10.5 ml/min; Est GFR (Non-African American) 7.8 ml/min; Magnesium 3.4 mg/dl (1.8-2.4); Phosphorus 7.2 mg/dl (2.5-4.9); Potassium 5.3 mmol/L (3.5-5.1)
[2021-07-29] MEDS ORDERED: HEPARIN SOD (PORCINE) 1000 UNIT/ML IV SCH (08:00)
[2021-07-29] MEDS: PANTOprazole 40 MG in SYRINGE 0 ML IV SCH (08:18)
[2021-07-29] MEDS: ATORVASTATIN 40 MG TAB PO SCH (08:18)
[2021-07-29] MEDS: MULTI VIT W/MINERALS LIQUID 15 ML UDP NG SCH (08:18)
[2021-07-29] MEDS: HEPARIN SOD 5,000 UNIT/0.5 ML VIAL SQ SCH ×2 (08:19→20:23)
[2021-07-29] MEDS: POLYETHYLENE (MIRALAX) 17 GM PACK PO SCH (08:19)
[2021-07-29] MEDS: GABAPENTIN 250 MG/5 ML 470 ML BTL PO SCH ×3 (08:20→20:23)
[2021-07-29] MEDS: INSULIN GLARGINE SOLOSTAR 100 UNITS/ML 3 ML PEN SC SCH (08:21)
[2021-07-29] MEDS ORDERED: INSULIN HUMAN NPH SC SCH (09:00)
--- NOTE | 2021-07-29 09:05 | Nephrology Progress Note ---
Date of Service July 29, 2021 Assessment & Plan (1) ASPEN (acute kidney injury): Plan: Clinically consistent with ischemic ATN superimposed on CKD. remains oliguric. Positive fluid balance. LIJ TDC placed 07/27. First HD treatment completed 07/27. Orders for 2nd treatment today entered into the EHR and reviewed with the dialysis nurse. Low potassium bath for hyperkalemia. Will attempt UF, as tolerated. ANCA and aBM negative. Methylprednisolone weaned to 60 mg q 6 hrs. Plan for continued weaning per ICU team. (2) CKD (chronic kidney disease) stage 3, GFR 30-59 ml/min: Plan: CKD III A1 attributed to DKD. Baseline creatinine ~1.5 mg/dL. Follows with Dr. Fountain as outpatient. (3) COVID-19: Plan: Prognosis unfortunately guarded. (4) Respiratory failure with hypoxia: Plan: Plan of care reviewed with Dr. Jiang. Will attempt to start UF to encourage negative fluid balance as tolerated. Admission and Anticipated Discharge Date Admission Date: July 15, 2021 Subjective Remains sedated on ventilator support. FIO2 increased to 55%. Bronchoscopy yesterday did not reveal alveolar hemorrhage. Methylprednisolone weaned to 60 mg q 6 hr. ANCA and anti-GBM testing negative. Notably oliguric. BP stable off vasopressor support. Review of Systems Review of Systems: Unobtainable due to endotracheal tube and Unobtainable due to reduced consciousness Physical Exam Constitutional: + frail appearing and + mechanically ventilated sedated Eyes: + anicteric sclerae; no corneal abnormality ENMT: ETT Neck: normal visual inspection and trachea midline Respiratory: symmetric chest movement Auscultation: + rhonchi Cardiovascular: Rate/Rhythm: regular rate Heart Sounds: normal S1 and normal S2 Extremities: + edema Gastrointestinal (Abdomen): Inspection/Auscultation: normal bowel sounds Percussion/Palpation: abdomen soft Musculoskeletal: Extremities: no cyanosis and no clubbing Skin: normal turgor; no lesions Neurologic: Motor/Sensory: no tremor and no asterixis Genitourinary: Bal with minimal dark yellow urine in bag Results & Data ([facility]) Vital Signs (Past 12 Hours) Vital Signs Temp Pulse Resp Pulse Ox 07/29/21 07:30 35.9 C L 65 26 H 91 07/29/21 07:07 64 26 H 92 07/29/21 07:00 35.8 C L 62 26 H 92 12/08/21 06:45 35.8 C L 66 26 H 92 07/29/21 06:30 35.8 C L 65 26 H 91 07/29/21 06:15 35.8 C L 67 27 H 92 07/29/21 06:00 35.8 C L 62 26 H 92 07/29/21 05:45 35.8 C L 73 26 H 92 07/29/21 05:30 35.8 C L 60 25 H 92 07/29/21 05:15 35.8 C L 65 26 H 92 07/29/21 05:00 35.8 C L 63 26 H 92 07/29/21 04:45 35.8 C L 67 26 H 92 07/29/21 04:30 35.7 C L 60 26 H 92 07/29/21 04:15 35.7 C L 66 26 H 92 07/29/21 04:00 35.7 C L 68 26 H 92 07/29/21 03:45 35.6 C L 62 26 H 92 07/29/21 03:30 35.6 C L 62 26 H 92 07/29/21 03:15 35.5 C L 64 26 H 92 07/29/21 03:00 35.5 C L 70 26 H 93 07/29/21 02:45 35.5 C L 70 26 H 93 07/29/21 02:31 71 27 H 93 07/29/21 02:30 35.5 C L 65 26 H 93 07/29/21 02:15 78 26 H 92 07/29/21 02:00 68 26 H 90 07/29/21 01:45 63 26 H 91 07/29/21 01:30 60 26 H 91 07/29/21 01:15 62 26 H 91 07/29/21 01:00 64 26 H 91 07/29/21 00:45 62 26 H 91 07/29/21 00:30 63 26 H 91 07/29/21 00:15 62 26 H 91 07/29/21 00:00 63 26 H 91 07/28/21 23:45 67 26 H 91 07/28/21 23:30 60 26 H 91 07/28/21 23:15 66 26 H 91 07/28/21 23:00 64 26 H 91 07/28/21 22:56 68 26 H 91 07/28/21 22:49 34.4 C L 07/28/21 22:45 64 26 H 91 07/28/21 22:30 62 26 H 91 07/28/21 22:15 65 26 H 92 07/28/21 22:00 62 26 H 91 07/28/21 21:45 60 26 H 92 07/28/21 21:30 64 26 H 91 07/28/21 21:15 66 26 H 91 Laboratory Results Laboratory Results - last 24 hr 07/24/21 07/28/21 07/28/21 16:20 11:15 13:40 WBC RBC Hgb POC Hgb Hct POC Hct MCV MCH MCHC RDW Std Deviation RDW Coeff of Favian Plt Count MPV Immature Gran % (Auto) Neut % (Auto) Lymph % (Auto) Murray % (Auto) Eos % (Auto) Baso % (Auto) Neut # (Auto) Lymph # (Auto) Murray # (Auto) Eos # (Auto) Baso # (Auto) Immature Gran # (Auto) Absolute Nucleated RBC Nucleated RBC % (auto) Hypersegmented Neuts Platelet Estimate Echinocytes Sample Site POC pH POC pCO2 POC pO2 POC HCO3 POC Total CO2 POC Base Excess ABG pH (Temp Correct) ABG pCO2 (Temp Corrct POC ABG pO2 at Pt Temp POC ABG O2 Sat Edin Test O2 Delivery Device POC O2 Rate POC FiO2 Tidal Volume PEEP POC Sodium Sodium POC Potassium Potassium Chloride Carbon Dioxide Anion Gap BUN Creatinine Est Cr Clr Drug Dosing Est GFR ( Amer) Est GFR (Non-Af Amer) BUN/Creatinine Ratio Glucose POC Glucose 232 H Calcium Phosphorus Magnesium ANCA Negative Glomerular Base Memb Ab <1.0 Resp Virus Cult Rapid Pending Viral Specimen Source Pending 07/28/21 07/28/21 07/28/21 13:40 16:16 20:00 WBC RBC Hgb POC Hgb Hct POC Hct MCV MCH MCHC RDW Std Deviation RDW Coeff of Favian Plt Count MPV Immature Gran % (Auto) Neut % (Auto) Lymph % (Auto) Murray % (Auto) Eos % (Auto) Baso % (Auto) Neut # (Auto) Lymph # (Auto) Murray # (Auto) Eos # (Auto) Baso # (Auto) Immature Gran # (Auto) Absolute Nucleated RBC Nucleated RBC % (auto) Hypersegmented Neuts Platelet Estimate Echinocytes Sample Site POC pH POC pCO2 POC pO2 POC HCO3 POC Total CO2 POC Base Excess ABG pH (Temp Correct) ABG pCO2 (Temp Corrct POC ABG pO2 at Pt Temp POC ABG O2 Sat Edin Test O2 Delivery Device POC O2 Rate POC FiO2 Tidal Volume PEEP POC Sodium Sodium POC Potassium Potassium Chloride Carbon Dioxide Anion Gap BUN Creatinine Est Cr Clr Drug Dosing Est GFR ( Amer) Est GFR (Non-Af Amer) BUN/Creatinine Ratio Glucose POC Glucose 217 H 179 H Calcium Phosphorus Magnesium ANCA Glomerular Base Memb Ab Resp Virus Cult Rapid Pending Viral Specimen Source Pending 07/29/21 07/29/21 07/29/21 00:33 04:06 04:07 WBC RBC Hgb POC Hgb 9.2 L Hct POC Hct 27 L MCV MCH MCHC RDW Std Deviation RDW Coeff of Favian Plt Count MPV Immature Gran % (Auto) Neut % (Auto) Lymph % (Auto) Murray % (Auto) Eos % (Auto) Baso % (Auto) Neut # (Auto) Lymph # (Auto) Murray # (Auto) Eos # (Auto) Baso # (Auto) Immature Gran # (Auto) Absolute Nucleated RBC Nucleated RBC % (auto) Hypersegmented Neuts Platelet Estimate Echinocytes Sample Site Art Line POC pH 7.29 L POC pCO2 37 POC pO2 71 L POC HCO3 18 L POC Total CO2 19 L POC Base Excess -9.0 ABG pH (Temp Correct) 7.305 L ABG pCO2 (Temp Corrct 35 POC ABG pO2 at Pt Temp 65 POC ABG O2 Sat 92.0 Edin Test NA O2 Delivery Device Ventilator POC O2 Rate 26 POC FiO2 55 Tidal Volume 380 PEEP 8 POC Sodium 135 Sodium POC Potassium 5.3 H Potassium Chloride Carbon Dioxide Anion Gap BUN Creatinine Est Cr Clr Drug Dosing Est GFR ( Amer) Est GFR (Non-Af Amer) BUN/Creatinine Ratio Glucose POC Glucose 197 H 216 H Calcium Phosphorus Magnesium ANCA Glomerular Base Memb Ab Resp Virus Cult Rapid Viral Specimen Source 07/29/21 07/29/21 07/29/21 05:59 05:59 08:14 WBC 11.29 H RBC 3.13 L Hgb 9.8 L POC Hgb Hct 29.7 L POC Hct MCV 94.9 MCH 31.3 MCHC 33.0 RDW Std Deviation 52.6 H RDW Coeff of Favian 15.3 H Plt Count 64 L MPV 12.7 H Immature Gran % (Auto) 0.6 Neut % (Auto) 94.0 Lymph % (Auto) 2.7 Murray % (Auto) 2.6 Eos % (Auto) 0.0 Baso % (Auto) 0.1 Neut # (Auto) 10.62 H Lymph # (Auto) 0.30 L Murray # (Auto) 0.29 Eos # (Auto) 0.00 Baso # (Auto) 0.01 Immature Gran # (Auto) 0.07 H Absolute Nucleated RBC 0.09 H Nucleated RBC % (auto) 0.8 Hypersegmented Neuts 1+ Platelet Estimate Decreased L Echinocytes 1+ Sample Site POC pH POC pCO2 POC pO2 POC HCO3 POC Total CO2 POC Base Excess ABG pH (Temp Correct) ABG pCO2 (Temp Corrct POC ABG pO2 at Pt Temp POC ABG O2 Sat Edin Test O2 Delivery Device POC O2 Rate POC FiO2 Tidal Volume PEEP POC Sodium Sodium 136 POC Potassium Potassium 5.3 H Chloride 106 Carbon Dioxide 18 L Anion Gap 12.0 H BUN Pending Creatinine 4.93 H* Est Cr Clr Drug Dosing 10.5 Est GFR ( Amer) 9.0 Est GFR (Non-Af Amer) 7.8 BUN/Creatinine Ratio TNP Glucose 197 H POC Glucose 232 H Calcium 8.1 L Phosphorus 7.2 H Magnesium 3.4 H ANCA Glomerular Base Memb Ab Resp Virus Cult Rapid Viral Specimen Source PG Care Time/CCT Total # of Minutes Spent Total Time Spent with Patient: Total time spent is greater than 50% in coordination of care (as documented) at patient's floor/unit and/or counseling patient: Coding Level of Care Code 96316 Subseq Hosp Care Lvl 3 Diagnoses ASPEN (acute kidney injury) N17.9 CKD (chronic kidney disease) stage 3, GFR 30-59 ml/min N18.3 COVID-19 U07.1 Respiratory failure with hypoxia J96.01 Chronicity: acute (1) Respiratory failure with hypoxia Chronicity: acute Qualified Code(s): J96.01 - Acute respiratory failure with hypoxia
--- NOTE | 2021-07-29 09:42 | XRay Report ---
XR chest 1V portable HISTORY: 80 years-old Female resp failure acute respiratory failure COMPARISON: Chest radiograph 07/28/2021 TECHNIQUE: Portable AP view of the chest FINDINGS: Cardiac silhouette is enlarged. Dense mitral annular calcifications. The endotracheal tube overlies t he midline, 2.2 cm superior to the ashlee. Enteric tube courses below the diaphragm with distal tip o utside the [id number]. Right IJ central venous catheter distal tip projects over the right atrium. Dual lumen left IJ hemodialysis catheter is unchanged positioning with distal tip projected superior ly within the distribution of the right brachycephalic vein. Left subclavian pacer. No pneumothorax. Small pleural effusions. Multifocal bilateral airspace opacities appear unchanged. IMPRESSION: 1. Lines and tubes as above. No pneumothorax. 2. Unchanged multifocal bilateral airspace opacities with trace pleural effusions. ACT 112: Negative or not required by law. The above report was generated using voice recognition software. It may contain grammatical, syntax o r spelling errors. Electronically signed by: Brian Lawrence M.D. 07/29/2021 9:41 AM
[2021-07-29] MEDS: fentaNYL DRIP 1,250 MCG/250 ML BAG IV SCH ×2 (10:56→22:43)
[2021-07-29] MEDS ORDERED: LACTULOSE SYRUP 20 GM/30 ML UDC PO ONE (11:30)
[2021-07-29 11:44] LABS: BUN Creatinine Ratio 32.4 (10-20)
--- NOTE | 2021-07-29 15:27 | Pharmacy Report ---
Pharmacy Glycemic Short Note 2 - Date of Service July 29, 2021 - Glycemic Short BSG Results (Last 24 hours): 07/28/21 07/28/21 07/29/21 16:16 20:00 00:33 Glucose POC Glucose 217 H 179 H 197 H 07/29/21 07/29/21 07/29/21 04:06 05:59 08:14 Glucose 197 H POC Glucose 216 H 232 H 07/29/21 12:15 Glucose POC Glucose 124 H OUTPATIENT ANTIDIABETIC REGIMEN: * Lantus 43 units Q AM + 26 units Q PM * Novolog 10 units w/ breakfast + 18 units w/ lunch + 18 units w/ dinner * A1c = 7.5% 07/16/21 ASSESSMENT: 07/29 * BSGs ranged 179-232 over last 24 hrs - will escalate basal insulin dose - prefer to adjust NPH dose as this insulin can more readily be d/c'd when given BID should steroid dose be adjusted or BSGs fall quicker than expected * Solu-medrol dose was reduced to 60mg IV Q 6 hrs yesterday afternoon and dose may be adjusted again today * BSGs trending down this afternoon. Will continue to monitor this trend. Insulin doses may need adjusted later today if running below goal. 07/27 * BSGs remain well controlled with adjustments to NPH as steroids escalated to methylpred 125mg q6h. * Renal function continues to deteriorate; plan for HD today which anticipated to increase insulin sensitivity. Plan to reduce tonight's NPH dose for a TDD reduction of ~ 20%. 07/25 * BSGs reasonable well controlled over last 24 hrs. Mild hyperglycemia observed despite being NPO. She likely needs larger basal insulin dose with current stressors * Solu-Medrol dose has been increased to 125mg TID - will increase NPH dose slightly to combat steroid induced hyperglycemia. Will refrain from increasing Lantus dose as well given ongoing NPO status. * Correctional Novolog dose will also be increased slightly as this will help control BSGs until basal deficiency corrected 07/24 * BSGs fairly well controlled given the events of the last 24 hrs * Patient was extubated yesterday, however became hypertensive and developed hemoptysis, concern for flash pulm edema. * Steroid has been changed from dexamethasone 6mg IV Q 12 hrs to methylprednisolone 80mg IV TID. * Patient is NPO at this time. Will need a swallow eval. Per RN, pt remains lethargic and may not be able to eat today. * Will proceed with using NPH BID as previously order, but hold Lantus this AM...until we see BSG trends while NPO. Home basal insulin doses were substantial so I think she will tolerating both the Lantus and NPH. * Plan to continue Novolog "severe" stress wt based doses for now PLAN FOR INPATIENT GLYCEMIC CONTROL: * Basal insulin * Lantus 25 units SQ Q AM * NPH 42 units SQ BID * Bolus insulin * NovoLog per scale Q 4 hrs * Goal Range: Low 110 mg/dL - High 140 mg/dL * Correction Factor: 8 mg/dL/unit * Nutritional / Prandial insulin per carb ratio of 1 unit per 2.5 grams CHO consumed PLAN FOR DISCHARGE: * HbA1c of 7.5% is likely adequate for patient based on age and comorbidities * Reasonable to continue home regimen at discharge provided patient's PO intake is near baseline
--- NOTE | 2021-07-29 16:34 | Critical Care Progress Note ---
Date of Service July 29, 2021 Assessment & Plan (1) COVID-19: (2) Respiratory failure with hypoxia: (3) CKD (chronic kidney disease) stage 3, GFR 30-59 ml/min: (4) Hx of heart artery stent: (5) Hemoptysis: Plan: Impression: 80-year-old female fully vaccinated for Covid admitted to the facility 07/15/2021 with acute on chronic hypoxemic respiratory failure. She was intubated 07/20/2021 and extubated 07/23/2021 but unfortunately then developed hemoptysis and was reintubated 07/25/2021. 24-hour events: Patient remains critically ill on high ventilator settings. Efforts to try and wean ventilatory requirements have not been successful. She remains sedated. Recommendations: Neurologic:Intubated and Sedated for mechanical ventilation. Continue sedation with propofol and fentanyl. Check triglycerides. No indication for paralytics currently. Will place on clonazepam and seroquel. May need additional sedation depending on clinical course. Pulmonary: Hypoxic respiratory failure secondary to Covid pneumonia. Patient extubated after initial trial mechanical ventilation, had respiratory distress post extubation with associated hemoptysis, BIPAP failed and re-intubated on 07/25/21 and then proned. Worsening of biilateral interstitial infiltrates and groundglass opacity seen with small bilateral effusions. Was placed on high- dose Solu-Medrol for possibility of diffuse alveolar hemorrhage however this was not identified on bronchoscopy and continuing to taper steroids. We will decrease to Solu-Medrol 30 mg every 8 today. OLI screen negative. Anti-GBM negative. Beta glucan ordered as well to evaluate for possible fungal process is still pending. Bronchoscopy specimen sent for cytology, cell count differential, PJP PCR as well as AFB, routine respiratory, fungal and viral cultures. She has not really responded to proning and will hold off on additional proning maneuvers. Current vent settings AC: 26/380/8/0.45 with a plateau pressure of 23. Most recent blood gas:7.29/37/71. P to F ratio: Essentially stable with poor compliance. D#4 MV (second course, D#8 total MV). Await family decision regarding tracheostomy, PEG tube, and LTAC placement Cardiovascular: She has an extensive history of coronary artery disease. Echo with LVEF of 55 to 60%. Mild aortic regurgitation. Severe mitral annular calcification. Moderate mitral regurgitation. She remains off pressors Gastrointestinal: OGT. Dietary managing tube feeding with bowel regimen. Renal: Appreciate nephrology input. HD per nephrology. Awaiting serologies. Would benefit from ultrafiltration if possible. Infectious disease: Completed 8 days of Zosyn. Antibiotics discontinued 07/27. Blood cultures from the fifth of show no growth to date. Respiratory culture with gram-negative tom from 07/27, bronchoscopy specimens currently pending. Will place on meropenem awaiting speciation and sensitivity. Hematologic: Hemoptysis resolved. Hemoglobin stable. Her platelet counts continue to drop. Unclear if this is associated with heparin. We will send heparin-induced antibody for possible HIT. May consider DDAVP given her elevated BUN for uremic platelets if procedures to be undertaken Endocrine: Hyperglycemia management per ICU pharmacist. VTE prophylaxis: Continue subcu heparin for DVT prophylaxis CODE STATUS: Full code. Disposition: Remain in the ICU. Prognosis is guarded. Met with 3 daughters and son-in-law for update. They are appropriately concerned about their mother and frustrated with many aspects of her care including the hospital visitation policy. I explained in detail her clinical course. We discussed outcomes of elderly patients intubated for Covid who go on to develop multiorgan system failure including renal disease requiring dialysis. We spent considerable amount of time discussing options at this point time to include tracheostomy and PEG tube placement as well as long-term acute care. They have taken it under advisement and will discuss amongst themselves and try and make a decision regarding how to proceed. I have personally spent 90 minutes of critical care time in the direct management of this patient. This is a life/limb threatening event. This includes time spent evaluating patient, direct bedside care, chart review, placing orders, interpretation of diagnostic studies, discussion with consultants, greg tomas, and family members, as well as other required patient management activities. This time is exclusive of all separately billable procedures, and teaching time and separate from and in addition to any other critical care service time. Admission and Anticipated Discharge Date Admission Date: July 15, 2021 Subjective Patient is intubated and sedated Review of Systems Review of Systems: Unobtainable due to endotracheal tube Physical Exam Constitutional: + morbidly obese and + mechanically ventilated; no acute dist ress Eyes: + anicteric sclerae ENMT: Mouth: + dry oral mucous membranes; no oral mucosal abnormality Neck: normal visual inspection and trachea midline Respiratory: symmetric chest movement Auscultation: + rhonchi Cardiovascular: Rate/Rhythm: regular rate Heart Sounds: normal S1 and normal S2 Extremities: + edema Gastrointestinal (Abdomen): Inspection/Auscultation: normal bowel sounds Percussion/Palpation: abdomen soft Musculoskeletal: Extremities: no cyanosis and no clubbing Skin: normal turgor; no lesions Neurologic: Motor/Sensory: no tremor and no asterixis Results & Data Results & Data ([facility]) Vital Signs (Past 12 Hours) Vital Signs Temp Pulse Pulse Resp BP BP Pulse Ox 07/29/21 15:00 36.4 C L 67 26 H 90 07/29/21 14:30 36.4 C L 66 26 H 91 07/29/21 14:05 70 26 H 92 07/29/21 14:00 36.3 C L 63 26 H 92 07/29/21 13:30 36.2 C L 67 26 H 93 07/29/21 13:00 36.2 C L 69 26 H 92 07/29/21 12:30 36.3 C L 70 26 H 93 07/29/21 12:28 37.4 C 68 140/42 L 07/29/21 12:00 36.3 C L 67 27 H 119/41 L 93 07/29/21 11:40 74 120/40 L 07/29/21 11:30 36.3 C L 75 26 H 92 07/29/21 11:20 69 123/40 L 07/29/21 11:11 69 28 H 94 07/29/21 11:00 36.2 C L 66 26 H 120/36 L 93 07/29/21 10:40 69 120/37 L 07/29/21 10:30 36.2 C L 69 26 H 94 07/29/21 10:20 65 117/38 L 07/29/21 10:03 78 144/37 H 07/29/21 10:00 36.0 C L 75 24 144/37 H 91 07/29/21 09:30 35.9 C L 69 25 H 91 07/29/21 09:20 71 166/41 H 07/29/21 09:05 37.2 C 72 07/29/21 09:00 35.9 C L 74 0 L 91 07/29/21 08:30 35.9 C L 76 26 H 92 07/29/21 08:00 35.9 C L 64 26 H 91 07/29/21 07:30 35.9 C L 65 26 H 91 07/29/21 07:07 64 26 H 92 07/29/21 07:00 35.8 C L 62 26 H 92 07/29/21 06:45 35.8 C L 66 26 H 92 07/29/21 06:30 35.8 C L 65 26 H 91 07/29/21 06:15 35.8 C L 67 27 H 92 07/29/21 06:00 35.8 C L 62 26 H 92 07/29/21 05:45 35.8 C L 73 26 H 92 07/29/21 05:30 35.8 C L 60 25 H 92 07/29/21 05:15 35.8 C L 65 26 H 92 07/29/21 05:00 35.8 C L 63 26 H 92 07/29/21 04:45 35.8 C L 67 26 H 92 Critical Care Results & Data Vital Signs (Past 12 Hours) Vital Signs Temp Pulse Pulse Resp BP BP Pulse Ox 07/29/21 15:00 36.4 C L 67 26 H 90 07/29/21 14:30 36.4 C L 66 26 H 91 07/29/21 14:05 70 26 H 92 07/29/21 14:00 36.3 C L 63 26 H 92 07/29/21 13:30 36.2 C L 67 26 H 93 07/29/21 13:00 36.2 C L 69 26 H 92 07/29/21 12:30 36.3 C L 70 26 H 93 07/29/21 12:28 37.4 C 68 140/42 L 07/29/21 12:00 36.3 C L 67 27 H 119/41 L 93 07/29/21 11:40 74 120/40 L 07/29/21 11:30 36.3 C L 75 26 H 92 07/29/21 11:20 69 123/40 L 07/29/21 11:11 69 28 H 94 07/29/21 11:00 36.2 C L 66 26 H 120/36 L 93 07/29/21 10:40 69 120/37 L 07/29/21 10:30 36.2 C L 69 26 H 94 07/29/21 10:20 65 117/38 L 07/29/21 10:03 78 144/37 H 07/29/21 10:00 36.0 C L 75 24 144/37 H 91 07/29/21 09:30 35.9 C L 69 25 H 91 07/29/21 09:20 71 166/41 H 07/29/21 09:05 37.2 C 72 07/29/21 09:00 35.9 C L 74 0 L 91 07/29/21 08:30 35.9 C L 76 26 H 92 07/29/21 08:00 35.9 C L 64 26 H 91 07/29/21 07:30 35.9 C L 65 26 H 91 07/29/21 07:07 64 26 H 92 07/29/21 07:00 35.8 C L 62 26 H 92 07/29/21 06:45 35.8 C L 66 26 H 92 07/29/21 06:30 35.8 C L 65 26 H 91 07/29/21 06:15 35.8 C L 67 27 H 92 07/29/21 06:00 35.8 C L 62 26 H 92 07/29/21 05:45 35.8 C L 73 26 H 92 07/29/21 05:30 35.8 C L 60 25 H 92 07/29/21 05:15 35.8 C L 65 26 H 92 07/29/21 05:00 35.8 C L 63 26 H 92 07/29/21 04:45 35.8 C L 67 26 H 92 Lab & Micro Results (Past 24 Hours) RBC 3.13 M/uL (4.2-5.4) L 07/29/21 WBC 11.29 K/uL (4.8-10.8) H 07/29/21 Hgb 9.8 g/dL (12.0-16.0) L 07/29/21 Hct 29.7 % (37-47) L 07/29/21 MCV 94.9 fL (80-100) 07/29/21 MCH 31.3 pg (25-34) 07/29/21 MCHC 33.0 g/dL (32-36) 07/29/21 RDW Standard Deviation 52.6 fL (36.4-46.3) H 07/29/21 RDW Coefficient of Variation 15.3 % (11.5-14.5) H 07/29/21 Plt Count 64 K/uL (130-400) L 07/29/21 MPV 12.7 fL (7.4-10.4) H 07/29/21 Nucleated Red Blood Cells % (auto) 0.8 % 07/29/21 Nucleated RBC Absolute Count (auto) 0.09 K/uL (0-0) H 07/29/21 Neutrophils (%) (Auto) 94.0 % 07/29/21 Lymphocytes (%) (Auto) 2.7 % 07/29/21 Monocytes # (Auto) 0.29 K/uL (0.11-0.59) 07/29/21 Eosinophils # (Auto) 0.00 K/uL (0-0.5) 07/29/21 Immature Granulocyte % (Auto) 0.6 % 07/29/21 Neutrophils # (Auto) 10.62 K/uL (1.4-6.5) H 07/29/21 Lymphocytes # (Auto) 0.30 K/uL (1.2-3.4) L 07/29/21 Monocytes # (Auto) 0.29 K/uL (0.11-0.59) 07/29/21 Eosinophils # (Auto) 0.00 K/uL (0-0.5) 07/29/21 Basophils # (Auto) 0.01 K/uL (0-0.2) 07/29/21 Immature Granulocyte # (Auto) 0.07 K/uL (0.00-0.02) H 07/29/21 Hypersegmented Neutrophils 1+ 07/29/21 Echinocytes 1+ 07/29/21 Na 136 mmol/L (136-145) 07/29/21 K 5.3 mmol/L (3.5-5.1) H 07/29/21 Cl 106 mmol/L (98-107) 07/29/21 CO2 18 mmol/L (21-32) L 07/29/21 Anion Gap 12.0 (3-11) H 07/29/21 BUN 160 mg/dl (7-18) H 07/29/21 Creatinine 4.93 mg/dl (0.6-1.2) H* 07/29/21 Estimated GFR ( Amer) 9.0 ml/min 07/29/21 Estimated GFR (Non-Af Amer) 7.8 ml/min 07/29/21 BUN/Creatinine Ratio 32.4 (10-20) H 07/29/21 Glu 197 mg/dl (70-99) H 07/29/21 Ca 8.1 mg/dl (8.5-10.1) L 07/29/21 Phosphorus Level 7.2 mg/dl (2.5-4.9) H 07/29/21 Mg 3.4 mg/dl (1.8-2.4) H 07/29/21 05:59 07/29/21 Calcium Level 8.1 mg/dl (8.5-10.1) L 07/29/21 05:59 07/29/21 Edin Test NA 07/29/21 04:07 07/29/21 Microbiology 07/28/21 13:40 Gram Stain - Final Bronch Wash, Trach Tree Bronchial Culture - Preliminary Light normal elda present, final report to follow. 07/28/21 13:40 Gram Stain - Final Bronch Wash,Right Middle Lobe Bronchial Culture - Preliminary Light normal elda present, final report to follow. 07/27/21 19:00 Gram Stain - Final Sputum,Vent Suction Sputum Culture - Preliminary Gram negative bacilli 07/28/21 13:40 Fungal Smear - Final Bronch Wash,Right Middle Lobe 07/28/21 13:40 Fungal Smear - Final Bronch Wash, Trach Tree 07/26/21 17:22 Aerobic Blood Culture - Preliminary Blood No growth in Aerobic bottle after 48 hours. Anaerobic Blood Culture - Preliminary No growth in Anaerobic bottle after 48 hours. 07/26/21 17:22 Aerobic Blood Culture - Preliminary Blood No growth in Aerobic bottle after 48 hours. Anaerobic Blood Culture - Final Diagnostic Findings (Past 24 Hours) Chest X-Ray 07/29/21 19:00 XR chest 1V portable HISTORY: 80 years-old Female resp failure acute respiratory failure COMPARISON: Chest radiograph 07/28/2021 TECHNIQUE: Portable AP view of the chest FINDINGS: Cardiac silhouette is enlarged. Dense mitral annular calcifications. The endotracheal tube overlies the midline, 2.2 cm superior to the ashlee. Enteric tube courses below the diaphragm with distal tip outside the [id number]. Right IJ central venous catheter distal tip projects over the right atrium. Dual lumen left IJ hemodialysis catheter is unchanged positioning with distal tip projected superiorly within the distribution of the right brachycephalic vein. Left subclavian pacer. No pneumothorax. Small pleural effusions. Multifocal bilateral airspace opacities appear unchanged. IMPRESSION: 1. Lines and tubes as above. No pneumothorax. 2. Unchanged multifocal bilateral airspace opacities with trace pleural effusions. ACT 112: Negative or not required by law. The above report was generated using voice recognition software. It may contain grammatical, syntax or spelling errors. Electronically signed by: Brian Lawrence M.D. 07/29/2021 9:41 AM I & O Totals 24 Hours 07/28/21 07/29/21 07/30/21 06:59 06:59 06:59 Intake Total 1379.020 / 2561.254 3986.520 / 1507.520 467.658 / 467.658 Output Total 340 / 340 190 / 190 0 / 0 Balance 1039.020 / 0625.888 4820.520 / 1317.520 467.658 / 467.658 Cumulative 07/15/21 11:42 thru 07/29/21 14:00 Intake Total 61669.627 Output Total 25498 Balance 2956.627 RT Ventilator Mngmt (Last Documented) Ventilator Ordered Settings Ventilator Support Mode Assist Control 07/29/21 14:05 Respiratory Rate 26 07/29/21 15:00 Ventilator Tidal Volume 380 07/29/21 14:05 Setting Minute Ventilation 9.8 07/29/21 14:05 Positive End Expiratory 8 07/29/21 14:05 Pressure Fraction of Inspired Oxygen 45 07/29/21 14:05 Peak Inspiratory Flow 47 07/27/21 19:07 Machine Comment weaned to 45%O2 07/29/21 11:11 Ventilator - PT Measurements Respiratory Rate 26 Exhaled Tidal Volume 380 Minute Ventilation 9.8 Peak Inspiratory Airway 27 Pressure Plateau Pressure 23 Respiratory Cycle Inspiratory: 1.2.5 Expiratory Ratio Inspiratory Phase Time 0.65 End-Tidal CO2 27 Static Lung Compliance 25.33 Dynamic Lung Compliance 20.00 Normal Static Lung Compliance 45.00 Patient Measurements Comment exp filter changes at this time Coding Level of Care Code Critical Care ea addt'l 30 min Diagnoses COVID-19 U07.1 Respiratory failure with hypoxia J96.01 Chronicity: acute CKD (chronic kidney disease) stage 3, GFR 30-59 ml/min N18.3 Hx of heart artery stent Z95.5 Hemoptysis R04.2 Time Spent (min) 90 Comment 02904 and [id number] (1) Respiratory failure with hypoxia Chronicity: acute Qualified Code(s): J96.01 - Acute respiratory failure with hypoxia
[2021-07-29] MEDS ORDERED: MEROPENEM CONSULT ACTIVE PRN (16:36)
[2021-07-29] MEDS: QUEtiapine FUMARATE 25 MG TABLET PO SCH (17:58)
[2021-07-29] MEDS: MEROPENEM 500 MG in SYRINGE 0 ML IV SCH (17:58)
[2021-07-29] MEDS: clonazePAM 1 MG TAB PO SCH (20:13)
[2021-07-29] MEDS: SENNOSIDES 8.8 MG/5 ML UDC PO SCH (20:23)
[2021-07-30] MEDS: INSULIN ASPART 100 UNITS/ML VIAL SC SCH ×7 (00:16→23:49)
[2021-07-30] MEDS: propofoL 1,000 MG/100 ML VIAL IV SCH ×5 (03:16→23:30)
[2021-07-30] MEDS: NOVASOURCE RENAL 2.0 CAL 1000ML BAG OG SCH (03:31)
[2021-07-30 04:47] LABS: iSTAT Allen Test Pass; iSTAT Art Bld Gas pCO2 Correct 37 mmHg (35-46); iSTAT Art Bld Gas pH Corrected 7.362 (7.35-7.45); iSTAT Arterial Blood Gas HCO3 21 meg/L (19-24); iSTAT Arterial Blood Gas pCO2 37 mmHg (35-46); iSTAT Arterial Blood Gas pH 7.36 (7.35-7.45); iSTAT Arterial Blood Gas pO2 66 mmHg (80-95); iSTAT Arterial Blood Gas pO2 C 66; iSTAT Carbon Dioxide 22 mmol/L (24-31); iSTAT FiO2 45 %; iSTAT Hematocrit 27 % (37-47); iSTAT Hemoglobin 9.2 g/dl (12.0-16.0); iSTAT Potassium 5.4 mmol/L (3.3-5.0); iSTAT Site Art Line; iSTAT Sodium 134 mmol/L (135-144)
[2021-07-30] MEDS: MEROPENEM 500 MG in SYRINGE 0 ML IV SCH (05:26)
[2021-07-30 06:43] LABS: BUN Creatinine Ratio 29.1 (10-20); Calcium 8.4 mg/dl (8.5-10.1); Est GFR (African American) 11.7 ml/min; Est GFR (Non-African American) 10.1 ml/min; Magnesium 3.1 mg/dl (1.8-2.4); Phosphorus 6.7 mg/dl (2.5-4.9); Potassium 5.4 mmol/L (3.5-5.1)
[2021-07-30 07:10] LABS: Hematocrit (blood only) 29.5 % (37-47); Hemoglobin 9.7 g/dL (12.0-16.0); Mean Corpuscular Hemoglobin 31.6 pg (25-34); Mean Corpuscular Hgb Conc 32.9 g/dL (32-36); Mean Corpuscular Volume 96.1 fL (80-100); Mean Platelet Volume 13.2 fL (7.4-10.4); Nucleated RBC # (auto) 0.16 K/uL (0-0); Nucleated RBC % (auto) 1.2 %; Platelet Count 63 K/uL (130-400); RDW Coefficient of Variation 15.6 % (11.5-14.5); RDW Standard Deviation 53.4 fL (36.4-46.3); Red Blood Count 3.07 M/uL (4.2-5.4); White Blood Count 13.08 K/uL (4.8-10.8)
[2021-07-30 07:11] LABS: Basophils # (auto) 0.01 K/uL (0-0.2); Basophils % (auto) 0.1 %; Echinocytes 1+; Immature Granulocytes # (auto) 0.08 K/uL (0.00-0.02); Immature Granulocytes % (auto) 0.6 %; Lymphocytes # (auto) 0.47 K/uL (1.2-3.4); Lymphocytes % (auto) 3.6 %; Monocytes # (auto) 0.32 K/uL (0.11-0.59); Monocytes % (auto) 2.4 %; Neutrophils % (auto) 93.3 %; Platelet Estimate Decreased (Normal)
[2021-07-30] MEDS: INSULIN HUMAN NPH SC SCH ×2 (09:04→20:39)
[2021-07-30] MEDS: INSULIN GLARGINE SOLOSTAR 100 UNITS/ML 3 ML PEN SC SCH (09:04)
[2021-07-30] MEDS: TUBE FEEDING WATER FLUSH OG SCH ×5 (09:14→23:49)
[2021-07-30] MEDS: methylPREDNISolone 30 MG in SYRINGE 0 ML IV SCH ×3 (09:14→19:26)
[2021-07-30] MEDS: MULTI VIT W/MINERALS LIQUID 15 ML UDP NG SCH (09:24)
[2021-07-30] MEDS: PANTOprazole 40 MG in SYRINGE 0 ML IV SCH (09:25)
[2021-07-30] MEDS: ATORVASTATIN 40 MG TAB PO SCH (09:25)
[2021-07-30] MEDS: QUEtiapine FUMARATE 25 MG TABLET PO SCH (09:26)
[2021-07-30] MEDS: clonazePAM 1 MG TAB PO SCH ×2 (09:30→20:39)
[2021-07-30] MEDS: GABAPENTIN 250 MG/5 ML 470 ML BTL PO SCH ×3 (09:30→20:40)
[2021-07-30] MEDS ORDERED: PATIROMER CALCIUM SORBITEX 8.4 GM PACK PO ONE (09:31)
--- NOTE | 2021-07-30 09:40 | Nephrology Progress Note ---
Date of Service July 30, 2021 Assessment & Plan (1) ASPEN (acute kidney injury): Plan: Clinically consistent with ischemic ATN superimposed on CKD requiring NURSE EPIDEMIOLOGIST. Remains oliguric. LIJ TDC placed 07/27. First HD treatment completed 07/27. Completed 3 hr HD yesterday. Volume status acceptable. Renal TF infusing. Patiromer 8.4 g to be provided this AM for hyperkalemia. IV diuretic challenge with Bumex 4 mg ordered. Repeat metabolic profile this AM. At this time, planning to hold dialysis today with anticipation of treatment tomorrow. (2) CKD (chronic kidney disease) stage 3, GFR 30-59 ml/min: Plan: CKD III A1 attributed to DKD. Baseline creatinine ~1.5 mg/dL. Follows with Dr. Fountain as outpatient. (3) COVID-19: Plan: Methylprednisolone weaned to 30 mg Q 6. Continued weaning per ICU team. (4) Respiratory failure with hypoxia: Plan: Plan of care reviewed with Dr. Jiang this AM. (5) Thrombocytopenia: Plan: HIT ab pending. No added heparin with dialysis pending results. Admission and Anticipated Discharge Date Admission Date: July 15, 2021 Subjective Remains sedated and ventilator dependent. Per nursing withdrawing to pain. Remains oliguric. BP stable. HD completed yesterday without complications. Net UF 1.9 L. Review of Systems Review of Systems: Unobtainable due to endotracheal tube and Unobtainable due to reduced consciousness Physical Exam Constitutional: + frail appearing and + mechanically ventilated Eyes: + anicteric sclerae; no corneal abnormality ENMT: ETT Neck: normal visual inspection and trachea midline Respiratory: symmetric chest movement Auscultation: lungs clear to auscultation bilaterally Cardiovascular: Rate/Rhythm: regular rate Heart Sounds: normal S1 and normal S2 Extremities: + edema Gastrointestinal (Abdomen): Inspection/Auscultation: normal bowel sounds Percussion/Palpation: abdomen soft Musculoskeletal: Extremities: no cyanosis and no clubbing Skin: normal turgor; no lesions Neurologic: Motor/Sensory: no tremor and no asterixis Genitourinary: Bal with minimal concentrate urine in bag Results & Data ([facility]) Vital Signs (Past 12 Hours) Vital Signs Temp Pulse Resp BP Pulse Ox 07/30/21 06:47 70 28 H 90 07/30/21 06:46 36.7 C 76 24 90 07/30/21 06:30 36.7 C 77 26 H 90 07/30/21 06:16 36.7 C 73 26 H 91 07/30/21 06:00 36.8 C 65 26 H 91 07/30/21 05:46 36.8 C 71 26 H 128/60 90 07/30/21 05:30 36.9 C 72 26 H 91 07/30/21 05:15 37.0 C 69 26 H 158/54 H 91 07/30/21 05:00 37.0 C 81 26 H 96 07/30/21 04:46 37.0 C 67 26 H 125/43 L 91 07/30/21 04:30 37.0 C 63 26 H 91 07/30/21 04:16 37.0 C 73 26 H 120/41 L 91 07/30/21 04:00 37.0 C 72 26 H 91 07/30/21 03:52 74 26 H 91 07/30/21 03:46 37.0 C 67 26 H 125/46 L 96 07/30/21 03:30 37.0 C 71 36 H 91 07/30/21 03:16 37.0 C 67 126/51 L 91 07/30/21 03:00 36.9 C 67 26 H 91 07/30/21 02:46 37.0 C 74 26 H 118/70 91 07/30/21 02:30 36.9 C 69 26 H 90 07/30/21 02:16 36.9 C 62 26 H 109/50 L 90 07/30/21 02:00 36.9 C 72 26 H 90 07/30/21 01:46 36.9 C 76 26 H 119/45 L 90 07/30/21 01:30 36.9 C 65 26 H 90 07/30/21 01:16 36.9 C 74 26 H 133/47 L 89 L 07/30/21 01:00 36.9 C 67 26 H 89 L 07/30/21 00:46 36.9 C 69 26 H 123/52 L 90 07/30/21 00:30 36.9 C 81 28 H 91 07/30/21 00:16 36.9 C 68 26 H 116/50 L 91 07/30/21 00:00 36.9 C 72 26 H 91 07/29/21 23:46 36.9 C 68 26 H 115/48 L 90 07/29/21 23:30 36.9 C 70 26 H 90 07/29/21 23:16 36.9 C 68 26 H 120/53 L 91 07/29/21 23:00 36.9 C 69 26 H 91 07/29/21 22:52 77 26 H 91 07/29/21 22:46 36.9 C 71 26 H 115/40 L 91 07/29/21 22:30 36.9 C 70 28 H 90 07/29/21 22:16 36.9 C 69 21 116/60 91 07/29/21 22:00 36.9 C 74 26 H 90 07/29/21 21:46 36.9 C 72 20 129/43 L 90 Laboratory Results Laboratory Results - last 24 hr 07/29/21 07/29/21 07/29/21 05:59 12:15 16:15 WBC RBC Hgb POC Hgb Hct POC Hct MCV MCH MCHC RDW Std Deviation RDW Coeff of Favian Plt Count MPV Immature Gran % (Auto) Neut % (Auto) Lymph % (Auto) Clayton % (Auto) Eos % (Auto) Baso % (Auto) Neut # (Auto) Lymph # (Auto) Clayton # (Auto) Eos # (Auto) Baso # (Auto) Immature Gran # (Auto) Absolute Nucleated RBC Nucleated RBC % (auto) Platelet Estimate Echinocytes Sample Site POC pH POC pCO2 POC pO2 POC HCO3 POC Total CO2 POC Base Excess ABG pH (Temp Correct) ABG pCO2 (Temp Corrct POC ABG pO2 at Pt Temp POC ABG O2 Sat Edin Test O2 Delivery Device POC O2 Rate POC FiO2 Tidal Volume PEEP POC Sodium Sodium POC Potassium Potassium Chloride Carbon Dioxide Anion Gap BUN 160 H Creatinine Est Cr Clr Drug Dosing Est GFR ( Amer) Est GFR (Non-Af Amer) BUN/Creatinine Ratio 32.4 H Glucose POC Glucose 124 H 95 Calcium Phosphorus Magnesium Triglycerides Serotonin Release Assay Heparin Depend Plt Ab 07/29/21 07/29/21 07/30/21 19:32 23:59 03:30 WBC RBC Hgb POC Hgb Hct POC Hct MCV MCH MCHC RDW Std Deviation RDW Coeff of Favian Plt Count MPV Immature Gran % (Auto) Neut % (Auto) Lymph % (Auto) Clayton % (Auto) Eos % (Auto) Baso % (Auto) Neut # (Auto) Lymph # (Auto) Clayton # (Auto) Eos # (Auto) Baso # (Auto) Immature Gran # (Auto) Absolute Nucleated RBC Nucleated RBC % (auto) Platelet Estimate Echinocytes Sample Site POC pH POC pCO2 POC pO2 POC HCO3 POC Total CO2 POC Base Excess ABG pH (Temp Correct) ABG pCO2 (Temp Corrct POC ABG pO2 at Pt Temp POC ABG O2 Sat Edin Test O2 Delivery Device POC O2 Rate POC FiO2 Tidal Volume PEEP POC Sodium Sodium POC Potassium Potassium Chloride Carbon Dioxide Anion Gap BUN Creatinine Est Cr Clr Drug Dosing Est GFR ( Amer) Est GFR (Non-Af Amer) BUN/Creatinine Ratio Glucose POC Glucose 103 H 104 H 86 Calcium Phosphorus Magnesium Triglycerides Serotonin Release Assay Heparin Depend Plt Ab 07/30/21 07/30/21 07/30/21 03:50 05:20 05:20 WBC RBC Hgb POC Hgb 9.2 L Hct POC Hct 27 L MCV MCH MCHC RDW Std Deviation RDW Coeff of Favian Plt Count MPV Immature Gran % (Auto) Neut % (Auto) Lymph % (Auto) Clayton % (Auto) Eos % (Auto) Baso % (Auto) Neut # (Auto) Lymph # (Auto) Clayton # (Auto) Eos # (Auto) Baso # (Auto) Immature Gran # (Auto) Absolute Nucleated RBC Nucleated RBC % (auto) Platelet Estimate Echinocytes Sample Site Art Line POC pH 7.36 POC pCO2 37 POC pO2 66 L POC HCO3 21 POC Total CO2 22 L POC Base Excess -5.0 ABG pH (Temp Correct) 7.362 ABG pCO2 (Temp Corrct 37 POC ABG pO2 at Pt Temp 66 POC ABG O2 Sat 92.0 Edin Test Pass O2 Delivery Device Ventilator POC O2 Rate 26 POC FiO2 45 Tidal Volume 380 PEEP 8 POC Sodium 134 L Sodium 134 L POC Potassium 5.4 H Potassium 5.4 H Chloride 103 Carbon Dioxide 19 L Anion Gap 12.0 H BUN 116 H Creatinine 3.98 H D Est Cr Clr Drug Dosing 13.0 Est GFR ( Amer) 11.7 Est GFR (Non-Af Amer) 10.1 BUN/Creatinine Ratio 29.1 H Glucose 75 POC Glucose Calcium 8.4 L Phosphorus 6.7 H Magnesium 3.1 H Triglycerides 120 Serotonin Release Assay Pending Heparin Depend Plt Ab Pending 07/30/21 07/30/21 05:20 07:47 WBC 13.08 H RBC 3.07 L Hgb 9.7 L POC Hgb Hct 29.5 L POC Hct MCV 96.1 MCH 31.6 MCHC 32.9 RDW Std Deviation 53.4 H RDW Coeff of Favian 15.6 H Plt Count 63 L MPV 13.2 H Immature Gran % (Auto) 0.6 Neut % (Auto) 93.3 Lymph % (Auto) 3.6 Clayton % (Auto) 2.4 Eos % (Auto) 0.0 Baso % (Auto) 0.1 Neut # (Auto) 12.20 H Lymph # (Auto) 0.47 L Clayton # (Auto) 0.32 Eos # (Auto) 0.00 Baso # (Auto) 0.01 Immature Gran # (Auto) 0.08 H Absolute Nucleated RBC 0.16 H Nucleated RBC % (auto) 1.2 Platelet Estimate Decreased L Echinocytes 1+ Sample Site POC pH POC pCO2 POC pO2 POC HCO3 POC Total CO2 POC Base Excess ABG pH (Temp Correct) ABG pCO2 (Temp Corrct POC ABG pO2 at Pt Temp POC ABG O2 Sat Edin Test O2 Delivery Device POC O2 Rate POC FiO2 Tidal Volume PEEP POC Sodium Sodium POC Potassium Potassium Chloride Carbon Dioxide Anion Gap BUN Creatinine Est Cr Clr Drug Dosing Est GFR ( Amer) Est GFR (Non-Af Amer) BUN/Creatinine Ratio Glucose POC Glucose 133 H Calcium Phosphorus Magnesium Triglycerides Serotonin Release Assay Heparin Depend Plt Ab PG Care Time/CCT Total # of Minutes Spent Total Time Spent with Patient: Total time spent is greater than 50% in coordination of care (as documented) at patient's floor/unit and/or counseling patient: Coding Level of Care Code 77824 Subseq Hosp Care Lvl 3 Diagnoses ASPEN (acute kidney injury) N17.9 CKD (chronic kidney disease) stage 3, GFR 30-59 ml/min N18.3 COVID-19 U07.1 Respiratory failure with hypoxia J96.01 Chronicity: acute Thrombocytopenia D69.6 (1) Respiratory failure with hypoxia Chronicity: acute Qualified Code(s): J96.01 - Acute respiratory failure with hypoxia
[2021-07-30] MEDS ORDERED: BUMETANIDE 4 MG in SYRINGE 0 ML IV ONE (10:00)
[2021-07-30] MEDS: LACTULOSE SYRUP 20 GM/30 ML UDC PO SCH (10:37)
[2021-07-30] MEDS: POLYETHYLENE (MIRALAX) 17 GM PACK PO SCH (10:37)
[2021-07-30] MEDS: HEPARIN SOD 5,000 UNIT/0.5 ML VIAL SQ SCH (10:37)
[2021-07-30] MEDS: SENNOSIDES 8.8 MG/5 ML UDC PO SCH ×2 (10:38→20:40)
[2021-07-30] MEDS ORDERED: CEFTAZIDIME PHARMACY CONSULT IN PROGRESS PRN (11:08)
--- NOTE | 2021-07-30 11:09 | Communication Note ---
Date of Service: July 30, 2021 Late entry note: Dr. Jiang was able to hold a lengthy family meeting with family in the hospital lobby yesterday discussing goals of care. I was able to talk with the family at length on the phone in the evening to establish goals of care with three family members, including Catherine. We discussed her current trajectory and medical condition along with all of the complex management of her care. They discussed feeling that they are not receiving medical updates and want so badly to visit with her. I suggested a zoom visit to have better understanding of what
[2021-07-30] MEDS: fentaNYL DRIP 1,250 MCG/250 ML BAG IV SCH ×2 (11:29→23:30)
--- NOTE | 2021-07-30 11:47 | Pharmacy Report ---
Pharmacy Glycemic Short Note 2 - Date of Service July 30, 2021 - Glycemic Short BSG Results (Last 24 hours): 07/29/21 07/29/21 07/29/21 12:15 16:15 19:32 Glucose POC Glucose 124 H 95 103 H 07/29/21 07/30/21 07/30/21 23:59 03:30 05:20 Glucose 75 POC Glucose 104 H 86 07/30/21 07/30/21 07:47 11:20 Glucose POC Glucose 133 H 165 H OUTPATIENT ANTIDIABETIC REGIMEN: * Lantus 43 units Q AM + 26 units Q PM * Novolog 10 units w/ breakfast + 18 units w/ lunch + 18 units w/ dinner * A1c = 7.5% 07/16/21 ASSESSMENT: 07/30 * BSG's fell on 07/29 as compared to 07/28 based on adjustments (below) and have ranged 95-133 mg/dL (since lunch yesterday). Steroids also tapered this AM * Per ICU rounds - tubefeed residuals good therefore no anticipated change to [facility] renal * Will keep Lantus but reduce NPH dose significantly * Will loosen Novolog 07/29 * BSGs ranged 179-232 over last 24 hrs - will escalate basal insulin dose - prefer to adjust NPH dose as this insulin can more readily be d/c'd when given BID should steroid dose be adjusted or BSGs fall quicker than expected * Solu-medrol dose was reduced to 60mg IV Q 6 hrs yesterday afternoon and dose may be adjusted again today * BSGs trending down this afternoon. Will continue to monitor this trend. Insulin doses may need adjusted later today if running below goal. 07/27 * BSGs remain well controlled with adjustments to NPH as steroids escalated to methylpred 125mg q6h. * Renal function continues to deteriorate; plan for HD today which anticipated to increase insulin sensitivity. Plan to reduce tonight's NPH dose for a TDD reduction of ~ 20%. PLAN FOR INPATIENT GLYCEMIC CONTROL: * Basal insulin * Lantus 25 units SQ Q AM * NPH 0-10 units SQ BID * Bolus insulin * NovoLog per scale Q 4 hrs * Goal Range: Low 110 mg/dL - High 140 mg/dL * Correction Factor: 10 mg/dL/unit * Nutritional / Prandial insulin per carb ratio of 1 unit per 4 grams CHO consumed PLAN FOR DISCHARGE: * HbA1c of 7.5% is likely adequate for patient based on age and comorbidities * Reasonable to continue home regimen at discharge provided patient's PO intake is near baseline
[2021-07-30 17:40] LABS: BUN Creatinine Ratio 31.5 (10-20); Calcium 8.1 mg/dl (8.5-10.1); Creatinine Clr Calc Pharmacy 12.7 ml/min; Est GFR (African American) 11.3 ml/min; Est GFR (Non-African American) 9.8 ml/min; Phosphorus 7.3 mg/dl (2.5-4.9); Potassium 5.5 mmol/L (3.5-5.1)
--- NOTE | 2021-07-30 18:27 | Critical Care Progress Note ---
Date of Service July 30, 2021 Assessment & Plan (1) COVID-19: (2) Respiratory failure with hypoxia: (3) CKD (chronic kidney disease) stage 3, GFR 30-59 ml/min: (4) Hx of heart artery stent: (5) Hemoptysis: Plan: Impression: 80-year-old female fully vaccinated for Covid admitted to the facility 07/15/2021 with acute on chronic hypoxemic respiratory failure. She was intubated 07/20/2021 and extubated 07/23/2021 but unfortunately then developed hemoptysis and was reintubated 07/25/2021. 24-hour events: Patient remains critically ill on high ventilator settings. Efforts to try and wean ventilatory requirements have not been successful. She remains sedated but off neuromuscular blockade. No notable improvement in the last 24 hours. Recommendations: Neurologic:Intubated and Sedated for mechanical ventilation. Continue sedation with propofol and fentanyl. In spite of chronic propofol use, triglycerides remain stable at 122 mg/Geoffrey. No indication for paralytics currently. Will place on clonazepam and seroquel. QTC on 07/29/2021 was 407 ms. We will check repeat EKG tomorrow. May need additional sedation depending on clinical course. Pulmonary: Hypoxic respiratory failure secondary to Covid pneumonia. Patient extubated after initial trial mechanical ventilation, had respiratory distress post extubation with associated hemoptysis, BIPAP failed and re-intubated on 07/25/21 and then proned. Worsening of biilateral interstitial infiltrates and groundglass opacity seen with small bilateral effusions. Was placed on high- dose Solu-Medrol for possibility of diffuse alveolar hemorrhage however this was not identified on bronchoscopy and continuing to taper steroids. We will decrease to Solu-Medrol 30 mg every 8 starting 07/29/2021. OLI screen negative. Anti-GBM negative. Beta glucan ordered as well to evaluate for possible fungal process is still pending. Bronchoscopy specimen sent for cytology, cell count differential, PJP PCR as well as AFB, routine respiratory, fungal and viral cultures. She has not really responded to proning and will hold off on additional proning maneuvers. Current vent settings AC: 28/380/8/0.45 with a plateau pressure of 23. Most recent blood gas:7.36/37/66. P to F ratio: Essentially stable with poor compliance. D#4 MV (second course, D#9 total MV). Await family decision regarding tracheostomy, PEG tube, and LTAC placement. Palliative medicine involved. Cardiovascular: She has an extensive history of coronary artery disease. Echo with LVEF of 55 to 60%. Mild aortic regurgitation. Severe mitral annular c alcification. Moderate mitral regurgitation. She remains off pressors Gastrointestinal: OGT. Dietary managing tube feeding with bowel regimen. Renal: Appreciate nephrology input. HD per nephrology. Awaiting serologies. Would benefit from ultrafiltration if possible. Infectious disease: Completed 8 days of Zosyn. Antibiotics discontinued 07/27. Blood cultures from the fifth of show no growth to date. Respiratory culture with pansensitive stenotrophomonas from 07/27. Discontinue meropenem. Patient allergic to Bactrim. We will start ceftazidime. Need to discuss development of new respiratory infection with patient's family as part of the palliative care consult. Hematologic: Hemoptysis resolved. Hemoglobin stable. Her platelet counts continue to drop. Unclear if this is associated with heparin. 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 May consider DDAVP given her elevated BUN for uremic platelets if procedures to be undertaken Endocrine: Hyperglycemia management per ICU pharmacist. VTE prophylaxis: Hold subcu heparin for DVT prophylaxis while we await heparin antibodies CODE STATUS: Full code. Disposition: Remain in the ICU. Prognosis is guarded. Met with 3 daughters and son-in-law for update. They are appropriately concerned about their mother and frustrated with many aspects of her care including the hospital visitation policy. I explained in detail her clinical course. We discussed outcomes of elderly patients intubated for Covid who go on to develop multiorgan system failure including renal disease requiring dialysis. We spent considerable amount of time discussing options at this point time to include tracheostomy and PEG tube placement as well as long-term acute care. They have taken it under advisement and will discuss amongst themselves and try and make a decision regarding how to proceed. I have personally spent 60 minutes of critical care time in the direct management of this patient. This is a life/limb threatening event. This includes time spent evaluating patient, direct bedside care, chart review, placing orders, interpretation of diagnostic studies, discussion with consultants, patient, and family members, as well as other required patient management activities. This time is exclusive of all separately billable procedures, and teaching time and separate from and in addition to any other critical care service time. Admission and Anticipated Discharge Date Admission Date: July 15, 2021 Subjective Attending: Dr. Jiang Patient seen and examined in room 203 with MAN Coronado. She remains ventilated on propofol and fentanyl. Cultures now growing stenotrophomonas. Meropenem has been discontinued. Patient was started on ceftazidime. Review of Systems Review of Systems: Unobtainable due to endotracheal tube Physical Exam Physical Exam: GENERAL : Continues on mechanical ventilation with sedation. EYES: No icterus, gaze conjugate. Pupils are equal and round NOSE: No evidence of epistaxis MOUTH: No lesions or candidiasis NECK: Supple LUNGS: Continues with decreased breath sounds. Off of neuromuscular blockade. Exhaled tidal volume 3.68 L. HEART: Regular, rate controlled ABDOMEN: Soft, NT, ND, BS Present EXTREMITIES: No LE edema, pedal pulses intact NEURO: Sedated on mechanical ventilation. Results & Data Results & Data ([facility]) Vital Signs (Past 12 Hours) Vital Signs Temp Pulse Resp BP Pulse Ox 07/30/21 16:00 36.5 C 71 28 H 07/30/21 15:45 36.5 C 78 26 H 137/61 92 07/30/21 15:30 36.5 C 69 26 H 92 07/30/21 15:16 36.5 C 67 27 H 92 07/30/21 15:00 36.5 C 75 28 H 92 07/30/21 14:47 72 28 H 07/30/21 14:45 36.5 C 72 26 H 134/76 92 07/30/21 14:30 36.5 C 75 24 91 07/30/21 14:16 36.6 C 77 26 H 07/30/21 14:00 36.6 C 69 28 H 91 07/30/21 13:46 36.6 C 70 20 92 07/30/21 13:30 36.6 C 66 20 92 07/30/21 13:15 36.6 C 71 22 141/53 H 91 07/30/21 13:00 36.6 C 67 26 H 92 07/30/21 12:46 36.6 C 77 21 92 07/30/21 12:30 36.7 C 69 26 H 92 07/30/21 12:16 36.6 C 79 26 H 07/30/21 12:00 36.7 C 66 27 H 92 07/30/21 11:46 36.7 C 66 26 H 92 07/30/21 11:44 66 26 H 92 07/30/21 11:30 36.7 C 73 27 H 91 07/30/21 11:16 36.7 C 69 26 H 92 07/30/21 11:00 36.7 C 72 24 92 07/30/21 10:46 36.8 C 75 26 H 92 07/30/21 10:30 36.8 C 69 26 H 91 07/30/21 10:16 36.8 C 67 26 H 91 07/30/21 10:00 36.8 C 65 20 91 07/30/21 09:46 36.7 C 65 20 91 07/30/21 09:30 36.7 C 68 28 H 92 07/30/21 09:16 36.7 C 69 20 93 07/30/21 09:00 36.8 C 76 28 H 93 07/30/21 08:46 36.7 C 70 20 93 07/30/21 08:30 36.7 C 70 24 92 07/30/21 08:16 36.7 C 73 28 H 92 07/30/21 08:00 36.7 C 66 20 93 07/30/21 07:46 36.7 C 68 26 H 92 07/30/21 07:30 36.7 C 65 26 H 91 07/30/21 07:16 36.7 C 70 26 H 91 07/30/21 07:00 36.7 C 74 26 H 92 07/30/21 06:47 70 28 H 90 07/30/21 06:46 36.7 C 76 24 90 07/30/21 06:30 36.7 C 77 26 H 90 Critical Care Results & Data Vital Signs (Past 12 Hours) Vital Signs Temp Pulse Resp BP Pulse Ox 07/30/21 16:00 36.5 C 71 28 H 92 07/30/21 15:45 36.5 C 78 26 H 137/61 92 07/30/21 15:30 36.5 C 69 26 H 92 07/30/21 15:16 36.5 C 67 27 H 92 07/30/21 15:00 36.5 C 75 28 H 92 07/30/21 14:47 72 28 H 92 07/30/21 14:45 36.5 C 72 26 H 134/76 92 07/30/21 14:30 36.5 C 75 24 91 07/30/21 14:16 36.6 C 77 26 H 92 07/30/21 14:00 36.6 C 69 28 H 91 07/30/21 13:46 36.6 C 70 20 92 07/30/21 13:30 36.6 C 66 20 92 07/30/21 13:15 36.6 C 71 22 141/53 H 91 07/30/21 13:00 36.6 C 67 26 H 92 07/30/21 12:46 36.6 C 77 21 92 07/30/21 12:30 36.7 C 69 26 H 92 07/30/21 12:16 36.6 C 79 26 H 92 07/30/21 12:00 36.7 C 66 27 H 92 07/30/21 11:46 36.7 C 66 26 H 92 07/30/21 11:44 66 26 H 92 07/30/21 11:30 36.7 C 73 27 H 91 07/30/21 11:16 36.7 C 69 26 H 92 07/30/21 11:00 36.7 C 72 24 92 07/30/21 10:46 36.8 C 75 26 H 92 07/30/21 10:30 36.8 C 69 26 H 91 07/30/21 10:16 36.8 C 67 26 H 91 07/30/21 10:00 36.8 C 65 20 91 07/30/21 09:46 36.7 C 65 20 91 07/30/21 09:30 36.7 C 68 28 H 92 07/30/21 09:16 36.7 C 69 20 93 07/30/21 09:00 36.8 C 76 28 H 93 07/30/21 08:46 36.7 C 70 20 93 07/30/21 08:30 36.7 C 70 24 92 07/30/21 08:16 36.7 C 73 28 H 92 07/30/21 08:00 36.7 C 66 20 93 07/30/21 07:46 36.7 C 68 26 H 92 07/30/21 07:30 36.7 C 65 26 H 91 07/30/21 07:16 36.7 C 70 26 H 91 07/30/21 07:00 36.7 C 74 26 H 92 07/30/21 06:47 70 28 H 90 07/30/21 06:46 36.7 C 76 24 90 Lab & Micro Results (Past 24 Hours) RBC 3.07 M/uL (4.2-5.4) L 07/30/21 WBC 13.08 K/uL (4.8-10.8) H 07/30/21 Hgb 9.7 g/dL (12.0-16.0) L 07/30/21 Hct 29.5 % (37-47) L 07/30/21 MCV 96.1 fL (80-100) 07/30/21 MCH 31.6 pg (25-34) 07/30/21 MCHC 32.9 g/dL (32-36) 07/30/21 RDW Standard Deviation 53.4 fL (36.4-46.3) H 07/30/21 RDW Coefficient of Variation 15.6 % (11.5-14.5) H 07/30/21 Plt Count 63 K/uL (130-400) L 07/30/21 MPV 13.2 fL (7.4-10.4) H 07/30/21 Nucleated Red Blood Cells % (auto) 1.2 % 07/30/21 Nucleated RBC Absolute Count (auto) 0.16 K/uL (0-0) H 07/30/21 Neutrophils (%) (Auto) 93.3 % 07/30/21 Lymphocytes (%) (Auto) 3.6 % 07/30/21 Monocytes # (Auto) 0.32 K/uL (0.11-0.59) 07/30/21 Eosinophils # (Auto) 0.00 K/uL (0-0.5) 07/30/21 Immature Granulocyte % (Auto) 0.6 % 07/30/21 Neutrophils # (Auto) 12.20 K/uL (1.4-6.5) H 07/30/21 Lymphocytes # (Auto) 0.47 K/uL (1.2-3.4) L 07/30/21 Monocytes # (Auto) 0.32 K/uL (0.11-0.59) 07/30/21 Eosinophils # (Auto) 0.00 K/uL (0-0.5) 07/30/21 Basophils # (Auto) 0.01 K/uL (0-0.2) 07/30/21 Immature Granulocyte # (Auto) 0.08 K/uL (0.00-0.02) H 07/30/21 Echinocytes 1+ 07/30/21 Na 132 mmol/L (136-145) L 07/30/21 K 5.5 mmol/L (3.5-5.1) H 07/30/21 Cl 102 mmol/L (98-107) 07/30/21 CO2 18 mmol/L (21-32) L 07/30/21 Anion Gap 12.0 (3-11) H 07/30/21 BUN 128 mg/dl (7-18) H 07/30/21 Creatinine 4.08 mg/dl (0.6-1.2) H 07/30/21 Estimated GFR ( Amer) 11.3 ml/min 07/30/21 Estimated GFR (Non-Af Amer) 9.8 ml/min 07/30/21 BUN/Creatinine Ratio 31.5 (10-20) H 07/30/21 Glu 182 mg/dl (70-99) H 07/30/21 Ca 8.1 mg/dl (8.5-10.1) L 07/30/21 Phosphorus Level 7.3 mg/dl (2.5-4.9) H 07/30/21 Albumin 2.0 gm/dl (3.4-5.0) L 07/30/21 Mg 3.1 mg/dl (1.8-2.4) H 07/30/21 05:20 07/30/21 Calcium Level 8.1 mg/dl (8.5-10.1) L 07/30/21 17:00 07/30/21 Edin Test Pass 07/30/21 03:50 07/30/21 Microbiology 07/28/21 13:40 Gram Stain - Final Bronch Wash, Trach Tree Bronchial Culture - Final Stenotrophomonas maltophilia 07/28/21 13:40 Gram Stain - Final Bronch Wash,Right Middle Lobe Bronchial Culture - Final Stenotrophomonas maltophilia 07/27/21 19:00 Gram Stain - Final Sputum,Vent Suction Sputum Culture - Final Stenotrophomonas maltophilia 07/28/21 13:40 Acid Fast Bacilli Smear - Final Bronch Wash,Right Middle Lobe I & O Totals 24 Hours 07/29/21 07/30/21 07/31/21 06:59 06:59 06:59 Intake Total 1507.520 / 0900.578 1673.273 / 1581.273 640.000 / 640.000 Output Total 190 / 190 100 / 100 190 / 190 Balance 1317.520 / 0462.965 7645.273 / 1481.273 450.000 / 450.000 Cumulative 07/15/21 11:42 thru 07/30/21 18:00 Intake Total 23153.242 Output Total 98184 Balance 4420.242 RT Ventilator Mngmt (Last Documented) Ventilator Ordered Settings Ventilator Support Mode Assist Control 07/30/21 16:00 Respiratory Rate 28 07/30/21 16:00 Ventilator Tidal Volume 380 07/30/21 16:00 Setting Minute Ventilation 9.9 07/30/21 14:47 Positive End Expiratory 8 07/30/21 16:00 Pressure Fraction of Inspired Oxygen 45 07/30/21 16:00 Peak Inspiratory Flow 47 07/27/21 19:07 Machine Comment weaned to 45%O2 07/29/21 11:11 Ventilator - PT Measurements Respiratory Rate 28 Exhaled Tidal Volume 368 Minute Ventilation 9.9 Peak Inspiratory Airway 26 Pressure Plateau Pressure 22 Respiratory Cycle Inspiratory: 1:2.5 Expiratory Ratio Inspiratory Phase Time 0.65 End-Tidal CO2 12 Static Lung Compliance 26.29 Dynamic Lung Compliance 20.44 Normal Static Lung Compliance 46.00 Patient Measurements Comment exp filter changes at this time Coding Level of Care Code Critical Care 1st 30-74 mins Diagnoses COVID-19 U07.1 Respiratory failure with hypoxia J96.01 Chronicity: acute CKD (chronic kidney disease) stage 3, GFR 30-59 ml/min N18.3 Hx of heart artery stent Z95.5 Hemoptysis R04.2 Time Spent (min) 60 (1) Respiratory failure with hypoxia Chronicity: acute Qualified Code(s): J96.01 - Acute respiratory failure with hypoxia
--- NOTE | 2021-07-30 19:13 | Hospitalist Progress Note ---
Date of Service July 30, 2021 Assessment & Plan (1) Respiratory failure with hypoxia: (2) COVID-19: Plan: Patient vaccinated fully against Covid, last dose November 2020 Plan: per Dr. Nunez's notes with addendum: Acute on chronic hypoxic respiratory failure ARDS secondary to COVID-19 Vaccinated against Covid, last dose November 2020 -CXR:Extensive bilateral airspace opacities which favor an infectious process such as viral pneumonia. Radiographic follow-up to ensure resolution is recommended. Not a candidate for remdesivir Completed dexamethasone course Patient had respiratory distress post extubation, developed hemoptysis CTA showed extensive groundglass opacities are present throughout both lungs characteristic of a viral type pneumonitis and Covid 19 pneumonia. Reintubated on 07/25/21 Had bronchoscopy with bronchoalveolar lavage which showed no evidence of alveolar hemorrhage Neuromuscular blockade discontinued Bronchial wash 07/28/2021: Stenotrophomonas Ceftazidime ordered Solu-Medrol 30 mg every 6 hours continued Possible flash pulmonary edema Lasix as needed nicardipine drip discontinued Atrial Fibrillation Rate controlled Monitor Mild hyponatremia Sodium level normalized ASPEN on CKD III Baseline 1.5-1.7; presenting creatinine 1.93 ATN versus acute glomerulonephritis, concern for vasculitis Had dialysis catheter placement on 07/27/21 Continue dialysis as per nephrology CAD Continue statin Aspirin held DM II SSI, glycemic pharmacy DVT Px: Heparin SQ--Held due to Hemoptysis CODE STATUS Full code for now Admission and Anticipated Discharge Date Admission Date: July 15, 2021 Subjective ff up for respiratory failure, COVID-19 pneumonia, etc. Seen resting in bed, sedated, intubated Not in distress Not in distress Tube feeding in progress No other issues Review of Systems Review of Systems: Unobtainable due to endotracheal tube and Unobtainable due to reduced consciousness Physical Exam Physical Exam: General- sedated, not in distress, breathing with no effort or accessory muscle use Eyes- anicteric Neck- no JVD Lungs- (+) rhonchi anteriorly BL Heart- normal rate, regular rhythm; no murmurs Abdomen- normal bowel sounds, nondistended, soft, nontender Extremities- no pretibial edema, no calf tenderness Neuro- sedated Skin- warm & dry Results & Data Results & Data ([facility]) Vital Signs (Past 12 Hours) Vital Signs Temp Pulse Resp BP Pulse Ox 07/30/21 16:00 36.5 C 71 28 H 92 07/30/21 15:45 36.5 C 78 26 H 137/61 92 07/30/21 15:30 36.5 C 69 26 H 92 07/30/21 15:16 36.5 C 67 27 H 92 07/30/21 15:00 36.5 C 75 28 H 92 07/30/21 14:47 72 28 H 92 07/30/21 14:45 36.5 C 72 26 H 134/76 92 07/30/21 14:30 36.5 C 75 24 91 07/30/21 14:16 36.6 C 77 26 H 92 07/30/21 14:00 36.6 C 69 28 H 91 07/30/21 13:46 36.6 C 70 20 92 07/30/21 13:30 36.6 C 66 20 92 07/30/21 13:15 36.6 C 71 22 141/53 H 91 07/30/21 13:00 36.6 C 67 26 H 92 07/30/21 12:46 36.6 C 77 21 92 07/30/21 12:30 36.7 C 69 26 H 92 07/30/21 12:16 36.6 C 79 26 H 92 07/30/21 12:00 36.7 C 66 27 H 92 07/30/21 11:46 36.7 C 66 26 H 92 07/30/21 11:44 66 26 H 92 07/30/21 11:30 36.7 C 73 27 H 91 07/30/21 11:16 36.7 C 69 26 H 92 07/30/21 11:00 36.7 C 72 24 92 07/30/21 10:46 36.8 C 75 26 H 92 07/30/21 10:30 36.8 C 69 26 H 91 07/30/21 10:16 36.8 C 67 26 H 91 07/30/21 10:00 36.8 C 65 20 91 07/30/21 09:46 36.7 C 65 20 91 07/30/21 09:30 36.7 C 68 28 H 92 07/30/21 09:16 36.7 C 69 20 93 07/30/21 09:00 36.8 C 76 28 H 93 07/30/21 08:46 36.7 C 70 20 93 07/30/21 08:30 36.7 C 70 24 92 07/30/21 08:16 36.7 C 73 28 H 92 07/30/21 08:00 36.7 C 66 20 93 07/30/21 07:46 36.7 C 68 26 H 92 07/30/21 07:30 36.7 C 65 26 H 91 07/30/21 07:16 36.7 C 70 26 H 91 all noted and reviewed including below (1) Respiratory failure with hypoxia Chronicity: acute Qualified Code(s): J96.01 - Acute respiratory failure with hypoxia
--- NOTE | 2021-07-30 19:22 | Hospitalist Progress Note ---
Date of Service July 30, 2021 delayed entry date of service 07/29/21 noted above Assessment & Plan (1) Respiratory failure with hypoxia: (2) COVID-19: Plan: Patient vaccinated fully against Covid, last dose November 2020 Plan: per Dr. Nunez's notes with addendum: Acute on chronic hypoxic respiratory failure ARDS secondary to COVID-19 Vaccinated against Covid, last dose November 2020 -CXR:Extensive bilateral airspace opacities which favor an infectious process such as viral pneumonia. Radiographic follow-up to ensure resolution is recommended. Not a candidate for remdesivir Completed dexamethasone course Patient had respiratory distress post extubation, developed hemoptysis CTA showed extensive groundglass opacities are present throughout both lungs characteristic of a viral type pneumonitis and Covid 19 pneumonia. Reintubated on 07/25/21 Had bronchoscopy with bronchoalveolar lavage which showed no evidence of alveolar hemorrhage Neuromuscular blockade discontinued remains on mech vent, sedated Bronchial wash 07/28/2021: pending on Solumedrol IV mech vent mgt per Pulm Solu-Medrol 30 mg every 6 hours continued Possible flash pulmonary edema Lasix as needed nicardipine drip discontinued Atrial Fibrillation Rate controlled Monitor Mild hyponatremia Sodium level normalized ASPEN on CKD III Baseline 1.5-1.7; presenting creatinine 1.93 ATN versus acute glomerulonephritis, concern for vasculitis Had dialysis catheter placement on 07/27/21 Continue dialysis as per nephrology CAD Continue statin Aspirin held DM II SSI, glycemic pharmacy DVT Px: Heparin SQ--Held due to Hemoptysis CODE STATUS Full code for now Admission and Anticipated Discharge Date Admission Date: July 15, 2021 Subjective ff up for acute hypoxic respiratory failure, COVID 19 pneumonia, etc sedated, intubated not in distress, no signs of pain no tachypnea, accessory muscle use no other issues noted Review of Systems Review of Systems: Unobtainable due to cognitive status, Unobtainable due to endotracheal tube and Unobtainable due to reduced consciousness Physical Exam Physical Exam: General- sedated, intubated, breathing with no effort or accessory muscle use Eyes- anicteric Neck- no JVD Lungs- mild rhonchi bilaterally Heart- normal rate, regular rhythm; no murmurs Abdomen- normal bowel sounds, nondistended, soft, nontender Extremities- mild edema on extremities Neuro- sedated Skin- warm & dry Results & Data Results & Data ([facility]) Vital Signs (Past 12 Hours) Vital Signs Temp Pulse Resp BP Pulse Ox 07/30/21 16:00 36.5 C 71 28 H 92 07/30/21 15:45 36.5 C 78 26 H 137/61 92 07/30/21 15:30 36.5 C 69 26 H 92 07/30/21 15:16 36.5 C 67 27 H 92 07/30/21 15:00 36.5 C 75 28 H 92 07/30/21 14:47 72 28 H 92 07/30/21 14:45 36.5 C 72 26 H 134/76 92 07/30/21 14:30 36.5 C 75 24 91 07/30/21 14:16 36.6 C 77 26 H 92 07/30/21 14:00 36.6 C 69 28 H 91 07/30/21 13:46 36.6 C 70 20 92 07/30/21 13:30 36.6 C 66 20 92 07/30/21 13:15 36.6 C 71 22 141/53 H 91 07/30/21 13:00 36.6 C 67 26 H 92 07/30/21 12:46 36.6 C 77 21 92 07/30/21 12:30 36.7 C 69 26 H 92 07/30/21 12:16 36.6 C 79 26 H 92 07/30/21 12:00 36.7 C 66 27 H 92 07/30/21 11:46 36.7 C 66 26 H 92 07/30/21 11:44 66 26 H 92 07/30/21 11:30 36.7 C 73 27 H 91 07/30/21 11:16 36.7 C 69 26 H 92 07/30/21 11:00 36.7 C 72 24 92 07/30/21 10:46 36.8 C 75 26 H 92 07/30/21 10:30 36.8 C 69 26 H 91 07/30/21 10:16 36.8 C 67 26 H 91 07/30/21 10:00 36.8 C 65 20 91 07/30/21 09:46 36.7 C 65 20 91 07/30/21 09:30 36.7 C 68 28 H 92 07/30/21 09:16 36.7 C 69 20 93 07/30/21 09:00 36.8 C 76 28 H 93 07/30/21 08:46 36.7 C 70 20 93 07/30/21 08:30 36.7 C 70 24 92 07/30/21 08:16 36.7 C 73 28 H 92 07/30/21 08:00 36.7 C 66 20 93 07/30/21 07:46 36.7 C 68 26 H 92 07/30/21 07:30 36.7 C 65 26 H 91 all noted and reviewed including below (1) Respiratory failure with hypoxia Chronicity: acute Qualified Code(s): J96.01 - Acute respiratory failure with hypoxia
--- NOTE | 2021-07-30 19:27 | XRay Report ---
XR chest 1V portable CLINICAL HISTORY: resp failure. Follow-up bilateral airspace opacities COMPARISON STUDY: No previous studies for comparison. TECHNIQUE: 1 view of the chest FINDINGS: Single frontal view of the chest demonstrates the cardiomediastinal silhouette to be within normal li mits. Cardiac pacer is again seen. Tubes and catheters are essentially unchanged. Compared to previou s examination, extensive interstitial and alveolar opacities are again seen bilaterally and unchanged . There is again minimal blunting of left costophrenic angle. There is no evidence for vascular conge stion. There is no acute osseous pathology. IMPRESSION: No significant interval change in extensive interstitial and alveolar opacities bilateral ly. There is again suspicion of a small left pleural effusion. ACT 112: Negative or not required by law. Electronically signed by: Ashutosh Medeiros M.D. 07/30/2021 7:26 PM
--- NOTE | 2021-07-30 21:30 | Palliative Care Consultation ---
Date of Consultation July 30, 2021 Assessment & Plan (1) Palliative care encounter: Anjali is a 80 year old vaccinated female who presented to the [facility] with acute on chronic respiratory failure and COVID-19 PNA. She was intubated on 07/20 and extubated on 07/23. She unfortunately, developed hemoptysis and was reintubated on 07/25. Additional PMH includes: CKD3, hyperparathyroidism, obesity, HLD, DM2, neuropathy, CHF, CAF, lymphedema, and back pain. Palliative medicine was consulted to discuss overall goals of care. Anjali is intubated and sedated and unable to participate in goals of care conversations. I talked with the patients three daughters Samreen, Sarah, and Magdaleno last evening on the phone regarding their mother not progressive towards recovery and poor prognosis. I suggested a zoom visit today for us to discuss further and for them to have a visual of the machines that their mother is attached to, in addition to seeing their mother on a ventilator. We met on zoom today at 1630. We spent a numerous amount of time discussing her clinical trajectory and her multi organ involvement. They recognize their mothers ailments and gravity of her illness, but are not pleased with the fact that they can not see their mother. I explained that when we have an overwhelming amount of information to consider, we would like to focus on her code status for now. I explained in detail how CPR or cardioversion/defibrillation would not lead to a meaningful recovery. They want to discuss internally amongst themselves and will call tomorrow with a code status determination. For now, remain a full code. I was very clear about their mother's complex illness and the unliklihood that she will have a meaningful recovery. We discussed a trach, peg, and skilled nursing care placement. They will discuss internally. Palliative will follow. (2) COVID-19: (3) Respiratory failure with hypoxia: Chronicity: acute Qualified Code(s): J96.01 - Acute respiratory failure with hypoxia (4) Chronic kidney disease, stage IV (severe): (5) Diastolic CHF, chronic: (6) Diabetes mellitus type 2: (7) Morbid obesity: History of Present Illness Reason for Consultation: Goals of care Requesting Physician: Dr. Jiang Attending Physician: Panchito Penn MD History of Present Illness Anjali is a 80 year old vaccinated female who presented to the [facility] with acute on chronic respiratory failure and COVID-19 PNA. She was intubated on 07/20 and extubated on 07/23. She unfortunately, developed hemoptysis and was reintubated on 07/25. Additional PMH includes: CKD3, hyperparathyroidism, obesity, HLD, DM2, neuropathy, CHF, CAF, lymphedema, and back pain. Palliative medicine was consulted to discuss overall goals of care. Please see A/P for further details. Thanks for involving palliative medicine with this patient. Allergies Allergy/AdvReac Type Severity Reaction Status Date / Time sulfamethoxazole Allergy Intermediate RASH Verified 07/23/21 13:49 trimethoprim Allergy Intermediate RASH Verified 07/23/21 13:49 Bactrim Allergy Unknown RASH Verified 04/14/18 12:03 codeine AdvReac Mild nausea Verified 07/15/21 14:50 Home Medications Medication Instructions Recorded Confirmed Type allopurinol 300 mg tablet 300 mg PO DAILY #0 tab 05/03/12 07/15/21 History atorvastatin 80 mg tablet (Lipitor) 80 mg PO DAILY #0 tab 08/04/15 07/15/21 History insulin aspart U-100 100 unit/mL 10 unit SUBCUT QAM #0 04/07/17 07/15/21 History (3 mL) subcutaneous pen insulin aspart U-100 100 unit/mL 18 unit SUBCUT BID #0 04/07/17 07/15/21 History (3 mL) subcutaneous pen insulin glargine 100 unit/mL 26 unit SUBCUT PM #0 04/07/17 07/15/21 History subcutaneous solution (Lantus U-100 Insulin) lorazepam 2 mg tablet 2 mg PO HS #0 04/07/17 07/15/21 History amlodipine 5 mg tablet (Norvasc) 5 mg PO DAILY #0 tab 11/27/17 07/15/21 History insulin glargine 100 unit/mL 43 unit SUBCUT QAM #0 pen 04/14/18 07/15/21 History subcutaneous solution (Lantus U-100 Insulin) nitroglycerin 0.4 mg sublingual 0.4 mg SUBLINGUAL Q5M PRN #0 tab 04/16/19 07/15/21 History tablet (Nitrostat) potassium chloride 20 mEq 40 meq PO DAILY tab 04/16/19 07/15/21 History tablet,extended release spironolactone 25 mg tablet 12.5 mg PO DAILY tab 04/16/19 07/15/21 History (Aldactone) aspirin 81 mg tablet,delayed 81 mg PO DAILY 10/12/19 07/15/21 History release (Aspir-) metoprolol succinate 25 mg 25 mg PO DAILY 10/12/19 07/15/21 History tablet,extended release 24 hr (Toprol XL) torsemide 20 mg tablet 20 mg PO BID 10/12/19 07/15/21 History gabapentin 100 mg tablet 100 mg PO TID 05/22/21 07/15/21 History isosorbide dinitrate 20 mg tablet 20 mg PO BID 05/22/21 07/15/21 History polyethylene glycol 3350 17 gram 17 g PO DAILY 05/22/21 07/15/21 History oral powder packet (Miralax) benzonatate 200 mg capsule 200 mg PO TID PRN 07/15/21 07/15/21 History dexamethasone 6 mg tablet 6 mg PO DAILY 07/15/21 07/15/21 History Patient History Medical History (Updated 07/30/21 @ 23:57 by OWEN Avila) Bradycardia Cataracts, bilateral Coronary artery disease Coronary artery disease Diabetes Edema Gout Hemoptysis Hyperparathyroidism Hypertension Kidney disease, chronic, stage IV (severe, EGFR 15-29 ml/min) Neuropathy Palliative care encounter Weakness Surgical History History of 3 sections History of total right knee replacement S/P angioplasty with stent Family History Mother Heart disease Diabetes Brother Diabetes Social History Smoking Status: Never smoker Hx Alcohol Use: No Hx Substance Use: No Preferred Language: Uzbek Communication Ability: Unable Imaging System Administrator Required: No Beliefs That Will Affect Care: None marital status: / Current Living Situation: Alone Feels Safe at Home: Yes Assistive Devices: Oxygen - Continuous Review of Systems Review of Systems: Unobtainable due to endotracheal tube Physical Exam Constitutional: + frail appearing Cardiovascular: Rate/Rhythm: regular rate and regular rhythm Extremities: normal capillary refill Gastrointestinal (Abdomen): Inspection/Auscultation: abdomen normal to inspection Skin: + ecchymosis and + pallor Results & Data ([facility]) Vital Signs (Past 12 Hours) Vital Signs Temp Pulse Resp BP Pulse Ox 07/30/21 20:27 76 30 H 91 07/30/21 16:00 36.5 C 71 28 H 92 07/30/21 15:45 36.5 C 78 26 H 137/61 92 07/30/21 15:30 36.5 C 69 26 H 92 07/30/21 15:16 36.5 C 67 27 H 92 07/30/21 15:00 36.5 C 75 28 H 92 07/30/21 14:47 72 28 H 92 07/30/21 14:45 36.5 C 72 26 H 134/76 92 07/30/21 14:30 36.5 C 75 24 91 07/30/21 14:16 36.6 C 77 26 H 92 07/30/21 14:00 36.6 C 69 28 H 91 07/30/21 13:46 36.6 C 70 20 92 07/30/21 13:30 36.6 C 66 20 92 07/30/21 13:15 36.6 C 71 22 141/53 H 91 07/30/21 13:00 36.6 C 67 26 H 92 07/30/21 12:46 36.6 C 77 21 92 07/30/21 12:30 36.7 C 69 26 H 92 07/30/21 12:16 36.6 C 79 26 H 92 07/30/21 12:00 36.7 C 66 27 H 92 07/30/21 11:46 36.7 C 66 26 H 92 07/30/21 11:44 66 26 H 92 07/30/21 11:30 36.7 C 73 27 H 91 07/30/21 11:16 36.7 C 69 26 H 92 07/30/21 11:00 36.7 C 72 24 92 07/30/21 10:46 36.8 C 75 26 H 92 07/30/21 10:30 36.8 C 69 26 H 91 07/30/21 10:16 36.8 C 67 26 H 91 07/30/21 10:00 36.8 C 65 20 91 07/30/21 09:46 36.7 C 65 20 91 PG Care Time/CCT Total # of Minutes Spent Total Time Spent with Patient: Total time spent is greater than 50% in coordination of care (as documented) at patient's floor/unit and/or counseling patient: 125 minutes Coding Level of Care Code 35368 Initial Inpt Care Lvl 3 Diagnoses Palliative care encounter Z51.5 COVID-19 U07.1 Respiratory failure with hypoxia J96.01 Chronicity: acute Chronic kidney disease, stage IV (severe) N18.4 Diastolic CHF, chronic I50.32 Diabetes mellitus type 2 E11.9 Morbid obesity E66.01 Time Spent (min) 125
--- NOTE | 2021-07-30 21:35 | Electrocardiogram Report ---
Test Reason : Blood Pressure : / mmHG Vent. Rate : 069 BPM Atrial Rate : 067 BPM P-R Int : 000 ms QRS Dur : 094 ms QT Int : 380 ms P-R-T Axes : 000 023 184 degrees QTc Int : 407 ms Atrial fibrillation with frequent ventricular-paced complexes Nonspecific ST abnormality Abnormal ECG When compared with ECG of 24-JUL-2021 12:48, Vent. rate has decreased BY 10 BPM Confirmed by Michael Anne ([id number]) on 07/30/2021 9:35:15 PM Referred By: REFERRED SELF Confirmed By:Michael Anne
[2021-07-31] MEDS: methylPREDNISolone 30 MG in SYRINGE 0 ML IV SCH ×4 (01:43→19:16)
[2021-07-31] MEDS: INSULIN ASPART 100 UNITS/ML VIAL SC SCH ×5 (04:42→19:18)
[2021-07-31] MEDS: TUBE FEEDING WATER FLUSH OG SCH ×5 (04:43→19:15)
[2021-07-31 05:00] LABS: iSTAT Arterial Blood Gas HCO3 18 meg/L (19-24); iSTAT Arterial Blood Gas pCO2 33 mmHg (35-46); iSTAT Arterial Blood Gas pH 7.35 (7.35-7.45); iSTAT Arterial Blood Gas pO2 67 mmHg (80-95); iSTAT Carbon Dioxide 19 mmol/L (24-31); iSTAT FiO2 45 %; iSTAT Site Art Line
[2021-07-31 06:18] LABS: Mean Corpuscular Hgb Conc 33.9 g/dL (32-36); Nucleated RBC # (auto) 0.06 K/uL (0-0); Nucleated RBC % (auto) 0.4 %
[2021-07-31 06:56] LABS: BUN Creatinine Ratio 37.4 (10-20); Calcium 8.3 mg/dl (8.5-10.1); Creatinine Clr Calc Pharmacy 13.4 ml/min; Echinocytes 1+; Est GFR (African American) 12.1 ml/min; Est GFR (Non-African American) 10.5 ml/min; Hematocrit (blood only) 27.7 % (37-47); Hemoglobin 9.4 g/dL (12.0-16.0); Immature Granulocytes % (auto) 0.8 %; Lymphocytes # (auto) 0.35 K/uL (1.2-3.4); Lymphocytes % (auto) 2.7 %; Magnesium 3.3 mg/dl (1.8-2.4); Mean Corpuscular Hemoglobin 32.4 pg (25-34); Mean Corpuscular Volume 95.5 fL (80-100); Monocytes # (auto) 0.11 K/uL (0.11-0.59); Monocytes % (auto) 0.8 %; Neutrophils # (auto) 12.61 K/uL (1.4-6.5); Neutrophils % (auto) 95.7 %; Phosphorus 7.8 mg/dl (2.5-4.9); Platelet Count 58 K/uL (130-400); Platelet Estimate Decreased (Normal); Potassium 5.6 mmol/L (3.5-5.1); RDW Coefficient of Variation 15.8 % (11.5-14.5); RDW Standard Deviation 53.5 fL (36.4-46.3); White Blood Count 13.17 K/uL (4.8-10.8)
[2021-07-31] MEDS: ATORVASTATIN 40 MG TAB PO SCH (08:11)
[2021-07-31] MEDS: INSULIN GLARGINE SOLOSTAR 100 UNITS/ML 3 ML PEN SC SCH (08:12)
[2021-07-31] MEDS: LACTULOSE SYRUP 20 GM/30 ML UDC PO SCH (08:14)
[2021-07-31] MEDS: PANTOprazole 40 MG in SYRINGE 0 ML IV SCH (08:14)
[2021-07-31] MEDS: INSULIN HUMAN NPH SC SCH ×2 (08:15→20:48)
[2021-07-31] MEDS: POLYETHYLENE (MIRALAX) 17 GM PACK PO SCH (08:17)
[2021-07-31] MEDS: SENNOSIDES 8.8 MG/5 ML UDC PO SCH ×2 (08:17→20:48)
[2021-07-31] MEDS: QUEtiapine FUMARATE 25 MG TABLET PO SCH (08:17)
[2021-07-31] MEDS: clonazePAM 1 MG TAB PO SCH ×2 (08:23→20:47)
[2021-07-31] MEDS: GABAPENTIN 250 MG/5 ML 470 ML BTL PO SCH ×3 (08:31→20:47)
[2021-07-31] MEDS ORDERED: HEPARIN SOD (PORCINE) 1000 UNIT/ML IV ONE (08:37)
--- NOTE | 2021-07-31 09:44 | Palliative Care Progress Note ---
Date of Service July 31, 2021 Assessment & Plan (1) Palliative care encounter: Plan: Samreen called in to the Palliative Medicine line and confirmed that her and her sisters were grateful for the dedicated time spent last night in her room with a thorough zoom call. All sisters talked internally and have decided to proceed with a DNR in the event of cardiac arrest of life threatening rhythm. We discussed the overall prognosis regarding their mother and her grave condition. Samreen says that dep down they all do recognize how ill their mother is and know she would not want to proceed with any additional heroic measures as they have talked numerous times before that "if I need to be in a fci, just put me in the shed". I explained that with that statement, it sounds like a trach and peg would not be something their Mom would want. I explained that I understand visitation would be helpful in order for them to make a decision to compassionately withdraw care and allow their mom to with dignity. They will take this into consideration for an eventual withdraw of care over the next day or two. Explained and set expectation that I would not be available over the or Tuesday. (2) COVID-19: (3) Respiratory failure with hypoxia: (4) Chronic kidney disease, stage IV (severe): (5) Diastolic CHF, chronic: (6) Diabetes mellitus type 2: (7) Morbid obesity: Admission and Anticipated Discharge Date Admission Date: July 15, 2021 Review of Systems Review of Systems: Unobtainable due to endotracheal tube Physical Exam Constitutional: + frail appearing Cardiovascular: Rate/Rhythm: regular rate and regular rhythm Extremities: normal capillary refill Gastrointestinal (Abdomen): Inspection/Auscultation: abdomen normal to inspection Skin: + ecchymosis and + pallor Results & Data ([facility]) Vital Signs (Past 12 Hours) Vital Signs Temp Pulse Resp BP Pulse Ox 07/31/21 06:01 72 26 H 92 07/31/21 05:00 36.2 C L 76 26 H 136/50 L 91 07/31/21 04:00 36.3 C L 68 26 H 143/55 H 91 07/31/21 03:40 73 26 H 91 07/31/21 03:00 36.4 C L 75 27 H 141/52 H 92 07/31/21 02:00 36.6 C 70 26 H 149/59 H 92 12/10/21 01:00 36.6 C 83 28 H 149/51 H 92 07/31/21 00:00 36.6 C 79 20 149/59 H 92 07/30/21 23:00 36.6 C 71 27 H 141/47 H 91 07/30/21 22:30 73 30 H 91 07/30/21 22:00 36.6 C 69 25 H 146/60 H 90 PG Care Time/CCT Total # of Minutes Spent Total Time Spent with Patient: Total time spent is greater than 50% in coordination of care (as documented) at patient's floor/unit and/or counseling patient: 45 minutes Coding Level of Care Code 84064 Subseq Hosp Care Lvl 3 Diagnoses Palliative care encounter Z51.5 COVID-19 U07.1 Respiratory failure with hypoxia J96.01 Chronicity: acute Chronic kidney disease, stage IV (severe) N18.4 Diastolic CHF, chronic I50.32 Diabetes mellitus type 2 E11.9 Morbid obesity E66.01 Time Spent (min) 45 (1) Respiratory failure with hypoxia Chronicity: acute Qualified Code(s): J96.01 - Acute respiratory failure with hypoxia
--- NOTE | 2021-07-31 10:04 | Nephrology Progress Note ---
Date of Service July 31, 2021 Assessment & Plan (1) ASPEN (acute kidney injury): Plan: Clinically consistent with ischemic ATN superimposed on CKD requiring PROGRAM PARAPROFESSIONAL. Remains relatively oliguric, though some response to IV Bumex yesterday. Continue intermittent IV diuretics to encourage urine output. LIJ TDC placed 07/27. First HD treatment completed 07/27. Orders for HD today entered into EHR and reviewed with HD nurse. Low potassium bath. UF goal 2+ L, as tolerated. Document strict I/O's. Repeat metabolic profile tomorrow AM. (2) CKD (chronic kidney disease) stage 3, GFR 30-59 ml/min: Plan: CKD III A1 attributed to DKD. Baseline creatinine ~1.5 mg/dL. Follows with Dr. Fountain as outpatient. (3) COVID-19: Plan: Methylprednisolone weaned to 30 mg Q 6. Continued weaning per ICU team. (4) Respiratory failure with hypoxia: Plan: Plan of care reviewed with Dr. Jiang this AM. (5) Thrombocytopenia: Plan: Platelets stable. HIT ab pending. No added heparin with dialysis pending results. Admission and Anticipated Discharge Date Admission Date: July 15, 2021 Subjective Remains ventilator dependent with increasing oxygen requirements. BP stable. TF infusing. Code status updated to DNR. I discussed the plan of care with Dr. Jiang this morning. Review of Systems Review of Systems: Unobtainable due to endotracheal tube and Unobtainable due to reduced consciousness Physical Exam Constitutional: + frail appearing and + mechanically ventilated Eyes: + anicteric sclerae; no corneal abnormality ENMT: Mouth: + dry oral mucous membranes; no oral mucosal abnormality Neck: normal visual inspection and trachea midline Respiratory: symmetric chest movement Auscultation: lungs clear to auscultation bilaterally Cardiovascular: Rate/Rhythm: regular rate Heart Sounds: normal S1 and normal S2 Extremities: + edema Gastrointestinal (Abdomen): Inspection/Auscultation: normal bowel sounds Percussion/Palpation: abdomen soft Musculoskeletal: Extremities: no cyanosis and no clubbing Skin: normal turgor; no lesions Neurologic: Motor/Sensory: no tremor and no asterixis Results & Data ([facility]) Vital Signs (Past 12 Hours) Vital Signs Temp Pulse Resp BP Pulse Ox 07/31/21 06:01 72 26 H 92 07/31/21 05:00 36.2 C L 76 26 H 136/50 L 91 12/10/21 04:00 36.3 C L 68 26 H 143/55 H 91 07/31/21 03:40 73 26 H 91 07/31/21 03:00 36.4 C L 75 27 H 141/52 H 92 07/31/21 02:00 36.6 C 70 26 H 149/59 H 92 07/31/21 01:00 36.6 C 83 28 H 149/51 H 92 07/31/21 00:00 36.6 C 79 20 149/59 H 92 07/30/21 23:00 36.6 C 71 27 H 141/47 H 91 07/30/21 22:30 73 30 H 91 Laboratory Results Laboratory Results - last 24 hr 07/30/21 07/30/21 07/30/21 11:20 16:15 17:00 WBC RBC Hgb Hct MCV MCH MCHC RDW Std Deviation RDW Coeff of Favian Plt Count Immature Gran % (Auto) Neut % (Auto) Lymph % (Auto) Foster % (Auto) Eos % (Auto) Baso % (Auto) Neut # (Auto) Lymph # (Auto) Foster # (Auto) Eos # (Auto) Baso # (Auto) Immature Gran # (Auto) Absolute Nucleated RBC Nucleated RBC % (auto) Platelet Estimate Echinocytes Sample Site POC pH POC pCO2 POC pO2 POC HCO3 POC Total CO2 POC Base Excess POC ABG O2 Sat Edin Test O2 Delivery Device POC O2 Rate POC FiO2 Tidal Volume PEEP Sodium 132 L Potassium 5.5 H Chloride 102 Carbon Dioxide 18 L Anion Gap 12.0 H BUN 128 H Creatinine 4.08 H Est Cr Clr Drug Dosing 12.7 Est GFR ( Amer) 11.3 Est GFR (Non-Af Amer) 9.8 BUN/Creatinine Ratio 31.5 H Glucose 182 H POC Glucose 165 H 182 H Calcium 8.1 L Phosphorus 7.3 H Magnesium Albumin 2.0 L 07/30/21 07/30/21 07/30/21 19:26 20:37 23:38 WBC RBC Hgb Hct MCV MCH MCHC RDW Std Deviation RDW Coeff of Favian Plt Count Immature Gran % (Auto) Neut % (Auto) Lymph % (Auto) Foster % (Auto) Eos % (Auto) Baso % (Auto) Neut # (Auto) Lymph # (Auto) Foster # (Auto) Eos # (Auto) Baso # (Auto) Immature Gran # (Auto) Absolute Nucleated RBC Nucleated RBC % (auto) Platelet Estimate Echinocytes Sample Site POC pH POC pCO2 POC pO2 POC HCO3 POC Total CO2 POC Base Excess POC ABG O2 Sat Edin Test O2 Delivery Device POC O2 Rate POC FiO2 Tidal Volume PEEP Sodium Potassium Chloride Carbon Dioxide Anion Gap BUN Creatinine Est Cr Clr Drug Dosing Est GFR ( Amer) Est GFR (Non-Af Amer) BUN/Creatinine Ratio Glucose POC Glucose 211 H 213 H 190 H Calcium Phosphorus Magnesium Albumin 07/31/21 07/31/21 07/31/21 04:37 04:40 05:39 WBC 13.17 H RBC 2.90 L Hgb 9.4 L Hct 27.7 L MCV 95.5 MCH 32.4 MCHC 33.9 RDW Std Deviation 53.5 H RDW Coeff of Favian 15.8 H Plt Count 58 L Immature Gran % (Auto) 0.8 Neut % (Auto) 95.7 Lymph % (Auto) 2.7 Foster % (Auto) 0.8 Eos % (Auto) 0.0 Baso % (Auto) 0.0 Neut # (Auto) 12.61 H Lymph # (Auto) 0.35 L Foster # (Auto) 0.11 Eos # (Auto) 0.00 Baso # (Auto) 0.00 Immature Gran # (Auto) 0.10 H Absolute Nucleated RBC 0.06 H Nucleated RBC % (auto) 0.4 Platelet Estimate Decreased L Echinocytes 1+ Sample Site Art Line POC pH 7.35 POC pCO2 33 L POC pO2 67 L POC HCO3 18 L POC Total CO2 19 L POC Base Excess -7.0 POC ABG O2 Sat 92.0 Edin Test NA O2 Delivery Device Ventilator POC O2 Rate 26 POC FiO2 45 Tidal Volume 380 PEEP 8 Sodium Potassium Chloride Carbon Dioxide Anion Gap BUN Creatinine Est Cr Clr Drug Dosing Est GFR ( Amer) Est GFR (Non-Af Amer) BUN/Creatinine Ratio Glucose POC Glucose 183 H Calcium Phosphorus Magnesium Albumin 07/31/21 07/31/21 05:39 07:43 WBC RBC Hgb Hct MCV MCH MCHC RDW Std Deviation RDW Coeff of Favian Plt Count Immature Gran % (Auto) Neut % (Auto) Lymph % (Auto) Foster % (Auto) Eos % (Auto) Baso % (Auto) Neut # (Auto) Lymph # (Auto) Foster # (Auto) Eos # (Auto) Baso # (Auto) Immature Gran # (Auto) Absolute Nucleated RBC Nucleated RBC % (auto) Platelet Estimate Echinocytes Sample Site POC pH POC pCO2 POC pO2 POC HCO3 POC Total CO2 POC Base Excess POC ABG O2 Sat Edin Test O2 Delivery Device POC O2 Rate POC FiO2 Tidal Volume PEEP Sodium 134 L Potassium 5.6 H Chloride 103 Carbon Dioxide 18 L Anion Gap 14.0 H BUN 144 H Creatinine 3.86 H Est Cr Clr Drug Dosing 13.4 Est GFR ( Amer) 12.1 Est GFR (Non-Af Amer) 10.5 BUN/Creatinine Ratio 37.4 H Glucose 171 H POC Glucose 158 H Calcium 8.3 L Phosphorus 7.8 H Magnesium 3.3 H Albumin PG Care Time/CCT Total # of Minutes Spent Total Time Spent with Patient: Total time spent is greater than 50% in coordination of care (as documented) at patient's floor/unit and/or counseling patient: Coding Level of Care Code 60772 Subseq Hosp Care Lvl 3 Diagnoses ASPEN (acute kidney injury) N17.9 CKD (chronic kidney disease) stage 3, GFR 30-59 ml/min N18.3 COVID-19 U07.1 Respiratory failure with hypoxia J96.01 Chronicity: acute Thrombocytopenia D69.6 (1) Respiratory failure with hypoxia Chronicity: acute Qualified Code(s): J96.01 - Acute respiratory failure with hypoxia
[2021-07-31] MEDS: NOVASOURCE RENAL 2.0 CAL 1000ML BAG OG SCH (10:47)
[2021-07-31] MEDS: propofoL 1,000 MG/100 ML VIAL IV SCH ×3 (10:49→12:35)
--- NOTE | 2021-07-31 12:34 | Critical Care Progress Note ---
Date of Service July 31, 2021 Assessment & Plan (1) COVID-19: (2) Respiratory failure with hypoxia: (3) CKD (chronic kidney disease) stage 3, GFR 30-59 ml/min: (4) Hx of heart artery stent: (5) Hemoptysis: Plan: Impression: 80-year-old female fully vaccinated for Covid admitted to the facility 07/15/2021 with acute on chronic hypoxemic respiratory failure. She was intubated 07/20/2021 and extubated 07/23/2021 but unfortunately then developed hemoptysis and was reintubated 07/25/2021. 24-hour events: Patient remains somewhat tenuous. She has been hemodynamically stable. She has had stabilization in her oxygen requirement over the last 24hours. She was started on antibiotics for stenotrophomonas. Heparin-induced antibodies are still pending. Her platelet count continues to remain low. There is no signs of bleeding or clot formation. Recommendations: Neurologic:Intubated and Sedated for mechanical ventilation. Continue sedation with propofol and fentanyl. In spite of chronic propofol use, triglycerides remain stable at 122 mg/Geoffrey. No indication for paralytics currently. Will place on clonazepam and seroquel. QTC on 07/29/2021 was 407 ms. We will pursue sedation break today to see how she does. If she responds favorably, may consider SBT. Pulmonary: Hypoxic respiratory failure secondary to Covid pneumonia. Patient extubated after initial trial mechanical ventilation, had respiratory distress post extubation with associated hemoptysis, BIPAP failed and re-intubated on 07/25/21 and then proned. Worsening of biilateral interstitial infiltrates and groundglass opacity seen with small bilateral effusions. Was placed on high- dose Solu-Medrol for possibility of diffuse alveolar hemorrhage however this was not identified on bronchoscopy and continuing to taper steroids. We will decrease to Solu-Medrol 30 mg every 8 starting 07/29/2021. OLI screen negative. Anti-GBM negative. Beta glucan ordered as well to evaluate for possible fungal process is still pending. Bronchoscopy specimen sent for cytology, cell count differential, PJP PCR as well as AFB, routine respiratory, fungal and viral cultures. Current vent settings AC: 26/380/8/0.45 with a plateau pressure of 24. Most recent blood gas:7.35/33/67. P to F ratio: 148, improved stable with poor compliance. D#5 MV (second course, D#10 total MV). We will continue to work on efforts to wean mechanical ventilation as tolerated. The patient's family is not sure they want to pursue tracheostomy and long-term interventions. Follow-up chest x-ray in a.m. Cardiovascular: She has an extensive history of coronary artery disease. Echo with LVEF of 55 to 60%. Mild aortic regurgitation. Severe mitral annular calcification. Moderate mitral regurgitation. She remains off pressors. QTc only 407 on EKG showing atrial fibrillation. Holding anticoagulation for now. A. fib appears rate controlled Gastrointestinal: OGT. Dietary managing tube feeding with bowel regimen. Renal: Appreciate nephrology input. HD per nephrology. No evidence of pulmonary renal syndrome based on serologies. Ultrafiltration today. Infectious disease: Completed 8 days of Zosyn. Antibiotics discontinued /. Blood cultures from the fifth of show no growth to date. Respiratory culture with pansensitive stenotrophomonas from 07/27. Day #2/14 ceftazidime. Continue to follow fever curve and white blood cell count. Fever curve better and white blood cell count is stable. Hematologic: Hemoptysis resolved. Hemoglobin stable. Her platelet counts continue to drop. Awaiting confirmatory serological testing for HIT. We will duplex lower extremities. If clot is identified, will need anticoagulation with argatroban although given recent pulmonary hemorrhage, this may be risky. Endocrine: Hyperglycemia management per ICU pharmacist. VTE prophylaxis: Hold subcu heparin for DVT prophylaxis while we await heparin antibodies CODE STATUS: Full code. Disposition: Remain in the ICU. Prognosis is guarded. Updated Catherine on the phone today including the development of new pneumonia, thrombocytopenia and failure of any significant improvement in kidney function. The family has elected to change CODE STATUS to no compressions which I think is reasonable as I do not think CPR would alter her outcome. There considering additional options as to whether or not their mother would want long-term dialysis or ventilatory support. We will continue efforts to try and liberate her from the ventilator in hopes of having her participate in the discussion as well. I have personally spent 65 minutes of critical care time in the direct management of this patient. This is a life/limb threatening event. This includes time spent evaluating patient, direct bedside care, chart review, placing orders, interpretation of diagnostic studies, discussion with consultants, patient, and family members, as well as other required patient management activities. This time is exclusive of all separately billable procedures, and teaching time and separate from and in addition to any other critical care service time. Admission and Anticipated Discharge Date Admission Date: July 15, 2021 Subjective intubated and sedated Review of Systems Review of Systems: Unobtainable due to endotracheal tube Physical Exam Constitutional: + morbidly obese and + mechanically ventilated Eyes: + anicteric sclerae Neck: normal visual inspection and trachea midline Respiratory: symmetric chest movement Auscultation: + rhonchi Cardiovascular: Rate/Rhythm: regular rate Heart Sounds: normal S1 and normal S2 Extremities: + edema Gastrointestinal (Abdomen): Inspection/Auscultation: normal bowel sounds Percussion/Palpation: abdomen soft Musculoskeletal: Extremities: no cyanosis and no clubbing Skin: normal turgor; no lesions Neurologic: Motor/Sensory: no tremor and no asterixis Results & Data Results & Data ([facility]) Vital Signs (Past 12 Hours) Vital Signs Temp Pulse Resp BP Pulse Ox 07/31/21 06:01 72 26 H 92 07/31/21 05:00 36.2 C L 76 26 H 136/50 L 91 07/31/21 04:00 36.3 C L 68 26 H 143/55 H 91 07/31/21 03:40 73 26 H 91 07/31/21 03:00 36.4 C L 75 27 H 141/52 H 92 07/31/21 02:00 36.6 C 70 26 H 149/59 H 92 07/31/21 01:00 36.6 C 83 28 H 149/51 H 92 Critical Care Results & Data Vital Signs (Past 12 Hours) Vital Signs Temp Pulse Resp BP Pulse Ox 07/31/21 06:01 72 26 H 92 07/31/21 05:00 36.2 C L 76 26 H 136/50 L 91 07/31/21 04:00 36.3 C L 68 26 H 143/55 H 91 07/31/21 03:40 73 26 H 91 07/31/21 03:00 36.4 C L 75 27 H 141/52 H 92 07/31/21 02:00 36.6 C 70 26 H 149/59 H 92 07/31/21 01:00 36.6 C 83 28 H 149/51 H 92 Lab & Micro Results (Past 24 Hours) RBC 2.90 M/uL (4.2-5.4) L 07/31/21 WBC 13.17 K/uL (4.8-10.8) H 07/31/21 Hgb 9.4 g/dL (12.0-16.0) L 07/31/21 Hct 27.7 % (37-47) L 07/31/21 MCV 95.5 fL (80-100) 07/31/21 MCH 32.4 pg (25-34) 07/31/21 MCHC 33.9 g/dL (32-36) 07/31/21 RDW Standard Deviation 53.5 fL (36.4-46.3) H 07/31/21 RDW Coefficient of Variation 15.8 % (11.5-14.5) H 07/31/21 Plt Count 58 K/uL (130-400) L 07/31/21 Nucleated Red Blood Cells % (auto) 0.4 % 07/31/21 Nucleated RBC Absolute Count (auto) 0.06 K/uL (0-0) H 07/31/21 Neutrophils (%) (Auto) 95.7 % 07/31/21 Lymphocytes (%) (Auto) 2.7 % 07/31/21 Monocytes # (Auto) 0.11 K/uL (0.11-0.59) 07/31/21 Eosinophils # (Auto) 0.00 K/uL (0-0.5) 07/31/21 Immature Granulocyte % (Auto) 0.8 % 07/31/21 Neutrophils # (Auto) 12.61 K/uL (1.4-6.5) H 07/31/21 Lymphocytes # (Auto) 0.35 K/uL (1.2-3.4) L 07/31/21 Monocytes # (Auto) 0.11 K/uL (0.11-0.59) 07/31/21 Eosinophils # (Auto) 0.00 K/uL (0-0.5) 07/31/21 Basophils # (Auto) 0.00 K/uL (0-0.2) 07/31/21 Immature Granulocyte # (Auto) 0.10 K/uL (0.00-0.02) H 07/31/21 Echinocytes 1+ 07/31/21 Na 134 mmol/L (136-145) L 07/31/21 K 5.6 mmol/L (3.5-5.1) H 07/31/21 Cl 103 mmol/L (98-107) 07/31/21 CO2 18 mmol/L (21-32) L 07/31/21 Anion Gap 14.0 (3-11) H 07/31/21 BUN 144 mg/dl (7-18) H 07/31/21 Creatinine 3.86 mg/dl (0.6-1.2) H 07/31/21 Estimated GFR ( Amer) 12.1 ml/min 07/31/21 Estimated GFR (Non-Af Amer) 10.5 ml/min 07/31/21 BUN/Creatinine Ratio 37.4 (10-20) H 07/31/21 Glu 171 mg/dl (70-99) H 07/31/21 Ca 8.3 mg/dl (8.5-10.1) L 07/31/21 Phosphorus Level 7.8 mg/dl (2.5-4.9) H 07/31/21 Albumin 2.0 gm/dl (3.4-5.0) L 07/30/21 Mg 3.3 mg/dl (1.8-2.4) H 07/31/21 05:39 07/31/21 Calcium Level 8.3 mg/dl (8.5-10.1) L 07/31/21 05:39 07/31/21 Edin Test NA 07/31/21 04:37 07/31/21 Microbiology 07/28/21 13:40 Gram Stain - Final Bronch Wash, Trach Tree Bronchial Culture - Final Stenotrophomonas maltophilia 07/28/21 13:40 Gram Stain - Final Bronch Wash,Right Middle Lobe Bronchial Culture - Final Stenotrophomonas maltophilia 07/27/21 19:00 Gram Stain - Final Sputum,Vent Suction Sputum Culture - Final Stenotrophomonas maltophilia 07/28/21 13:40 Acid Fast Bacilli Smear - Final Bronch Wash,Right Middle Lobe Diagnostic Findings (Past 24 Hours) Chest X-Ray 07/30/21 19:00 XR chest 1V portable CLINICAL HISTORY: resp failure. Follow-up bilateral airspace opacities COMPARISON STUDY: No previous studies for comparison. TECHNIQUE: 1 view of the chest FINDINGS: Single frontal view of the chest demonstrates the cardiomediastinal silhouette to be within normal limits. Cardiac pacer is again seen. Tubes and catheters are essentially unchanged. Compared to previous examination, extensive interstitial and alveolar opacities are again seen bilaterally and unchanged. There is again minimal blunting of left costophrenic angle. There is no evidence for vascular congestion. There is no acute osseous pathology. IMPRESSION: No significant interval change in extensive interstitial and alveolar opacities bilaterally. There is again suspicion of a small left pleural effusion. ACT 112: Negative or not required by law. Electronically signed by: Ashutosh Medeiros M.D. 07/30/2021 7:26 PM I & O Totals 24 Hours 07/30/21 07/31/21 08/01/21 06:59 06:59 06:59 Intake Total 1581.273 / 2856.558 1881.066 / 2288.066 100 / 100 Output Total 100 / 100 590 / 590 Balance 1481.273 / 1181.527 2612.066 / 1698.066 100 / 100 Cumulative 07/15/21 11:42 thru 07/31/21 10:02 Intake Total 82176.308 Output Total 58911 Balance 5768.308 RT Ventilator Mngmt (Last Documented) Ventilator Ordered Settings Ventilator Support Mode Assist Control 07/31/21 12:00 Respiratory Rate 26 07/31/21 06:01 Ventilator Tidal Volume 380 07/31/21 12:00 Setting Minute Ventilation 9.9 07/31/21 06:01 Positive End Expiratory 8 07/31/21 12:00 Pressure Fraction of Inspired Oxygen 45 07/31/21 12:00 Peak Inspiratory Flow 47 07/27/21 19:07 Machine Comment weaned to 45%O2 07/29/21 11:11 Ventilator - PT Measurements Respiratory Rate 26 Exhaled Tidal Volume 380 Minute Ventilation 9.9 Peak Inspiratory Airway 29 Pressure Plateau Pressure 24 Respiratory Cycle Inspiratory: 1:2.5 Expiratory Ratio Inspiratory Phase Time 0.65 End-Tidal CO2 25 Static Lung Compliance 23.75 Dynamic Lung Compliance 18.10 Normal Static Lung Compliance 45.00 Patient Measurements Comment exp filter changes at this time Coding Level of Care Code Critical Care 1st 30-74 mins Diagnoses COVID-19 U07.1 Respiratory failure with hypoxia J96.01 Chronicity: acute CKD (chronic kidney disease) stage 3, GFR 30-59 ml/min N18.3 Hx of heart artery stent Z95.5 Hemoptysis R04.2 Time Spent (min) 65 (1) Respiratory failure with hypoxia Chronicity: acute Qualified Code(s): J96.01 - Acute respiratory failure with hypoxia
--- NOTE | 2021-07-31 14:27 | Pharmacy Report ---
Pharmacy Glycemic Short Note 2 - Date of Service July 31, 2021 - Glycemic Short BSG Results (Last 24 hours): 07/30/21 07/30/21 07/30/21 16:15 17:00 19:26 Glucose 182 H POC Glucose 182 H 211 H 07/30/21 07/30/21 07/31/21 20:37 23:38 04:40 Glucose POC Glucose 213 H 190 H 183 H 07/31/21 07/31/21 07/31/21 05:39 07:43 11:43 Glucose 171 H POC Glucose 158 H 169 H OUTPATIENT ANTIDIABETIC REGIMEN: * Lantus 43 units Q AM + 26 units Q PM * Novolog 10 units w/ breakfast + 18 units w/ lunch + 18 units w/ dinner * A1c = 7.5% 07/16/21 ASSESSMENT: 07/31 * BSG's responded to reduction in basal and bolus insulin yesterday in response to steroid taper and lower BSG's preceeding. Goal BSG 140-180 mg/dL for ICU status patient * BSG's did gradually increase and are now persistently slightly above goal range, ranging 182-213 yesterday PM to this AM. Will tighten CHO ratio slightly as increase in Novasource renal rate also likely contributing 07/30 * BSG's fell on 07/29 as compared to 07/28 based on adjustments (below) and have ranged 95-133 mg/dL (since lunch yesterday). Steroids also tapered this AM * Per ICU rounds - tubefeed residuals good therefore no anticipated change to Novasource renal * Will keep Lantus but reduce NPH dose significantly * Will loosen Novolog 07/29 * BSGs ranged 179-232 over last 24 hrs - will escalate basal insulin dose - prefer to adjust NPH dose as this insulin can more readily be d/c'd when given BID should steroid dose be adjusted or BSGs fall quicker than expected * Solu-medrol dose was reduced to 60mg IV Q 6 hrs yesterday afternoon and dose may be adjusted again today * BSGs trending down this afternoon. Will continue to monitor this trend. Insulin doses may need adjusted later today if running below goal. PLAN FOR INPATIENT GLYCEMIC CONTROL: * Basal insulin * Lantus 25 units SQ Q AM * NPH 0-10 units SQ BID * Bolus insulin * NovoLog per scale Q 4 hrs * Goal Range: Low 110 mg/dL - High 140 mg/dL * Correction Factor: 10 mg/dL/unit * Nutritional / Prandial insulin per carb ratio of 1 unit per 3 grams CHO consumed PLAN FOR DISCHARGE: * HbA1c of 7.5% is likely adequate for patient based on age and comorbidities * Reasonable to continue home regimen at discharge provided patient's PO intake is near baseline
--- NOTE | 2021-07-31 14:49 | Ultrasound Report ---
BILATERAL LOWER EXTREMITY VENOUS DOPPLER HISTORY: Right leg swelling. COMPARISON STUDY: None. FINDINGS: There is normal compressibility, flow, and augmentation within the left lower extremity nano p venous system. The right common femoral, superficial femoral, popliteal, and anterior tibial veins are patent. Intermittent flow within the right posterior tibial vein likely representing areas of thr ombus. The right peroneal vein is also thrombosed. IMPRESSION: 1. No DVT within the left lower extremity. 2. Deep vein thrombosis involving the right posterior tibial and peroneal veins. No [id number] th rombosis within the right lower extremity. ACT 112: Negative or not required by law. Electronically signed by: Stevo Alvarez M.D. 07/31/2021 2:47 PM
--- NOTE | 2021-07-31 15:42 | Pharmacy Report ---
Pharmacy Argatroban Consult - Date of Service July 31, 2021 - Pharmacy Dosing Scope Pharmacy is consulted to initiate the use of Argatroban-IV dosing therapy in the setting of possible HIT/DIANN pending work-up, order appropriate labs and adjust drug dose/frequency. - Subjective Regarding previous anticoagulation: Patient was day # 10-12 of PROPHYLACTIC heparin. D/C 07/30 Start Argatroban-IV for new-onset DVT noted 07/31 in setting of possible HIT. Goal PTT Ratio as determined by Dr. Jiang: 1.5 - 3 Pertinent PMH: COVID positive. Recent history notable for hemoptysis and possible alveolar hemorrhage. Current hemodialysis. - Objective Laboratory Results:: Last 24 Hours 07/30/21 07/31/21 07/31/21 17:00 05:39 05:39 Hgb 9.4 L Hct 27.7 L Plt Count 58 L BUN 128 H 144 H Creatinine 4.08 H 3.86 H Last 72 Hours 07/29/21 07/30/21 07/31/21 05:59 05:20 05:39 Plt Count 64 L 63 L 58 L - Assessment & Plan Regarding THERAPEUTIC Argatroban-IV for DVT and possible HIT: Managed per the [facility] Direct Thrombin Inhibitor Usage Guidelines II.E.13.01(j). D/C all heparin & low molecular weight heparin (LMWH) products. Start Argatroban-IV infusion at 1 mcg/kg/min. o Start initial dosage JESIKA, after baseline PTT and PT/INR have been *drawn* (OK to start prior to them *resulting*) Goal PTT Ratio as determined by ordering provider: 1.5-3 Monitoring: Steady state achieved in 1-3 hours in most patients without hepatic dysfunction. Clearance is reduced up to 4-fold in patients with hepatic impairment (i.e., steady- state may not be achieved for 4-12hrs). Further dosage adjustments per Clinical Pharmacy & the [facility] Direct Thrombin Inhibitor Usage Guidelines II.E.13.01(j). Adverse Effects: As there is no specific antidote for DTIs or DTI therapy, careful attention is paid to the achievement of optimal dosing without overdosing. Any DTI therapy should be discontinued should a major clinical bleeding episode take place. Contraindications to DTI Therapy: Overt, major bleeding, hypersensitivity to the medication or any component. Labs: Baseline/Ongoing Labs: Per P&T approved Anticoagulation Safety, Laboratory Test for Anticoagulants. Next PTT to be drawn 4 hours after initiation of argatroban. We will continue to monitor this patient and make adjustments as needed. Thank you.
[2021-07-31 16:05] LABS: Partial Thromboplastin Ratio 1.5; Partial Thromboplastin Time 40.5 Seconds (21.0-31.0); Prothrombin Time 9.8 Seconds (9.0-12.0)
[2021-07-31 16:13] LABS: Albumin Level 2.3 gm/dl (3.4-5.0); Bilirubin Direct 0.4 mg/dl (0-0.2); Bilirubin,Total 0.7 mg/dl (0.2-1); Total Protein 6.7 gm/dl (6.4-8.2)
[2021-07-31] MEDS ORDERED: METOPROLOL TARTRATE 1 MG/ML VIAL IV ONE ×2 (17:29→17:33)
[2021-07-31] MEDS: fentaNYL DRIP 1,250 MCG/250 ML BAG IV SCH (18:51)
--- NOTE | 2021-07-31 19:23 | XRay Report ---
XR chest 1V portable HISTORY: 80 years-old Female f/u acute respiratory failure COMPARISON: Chest radiograph 07/30/2021 TECHNIQUE: Portable AP view the chest FINDINGS: Endotracheal tube overlies the midline, 2.6 cm superior to the ashlee. Enteric tube courses below the diaphragm with distal tip projected over the gastric body. Bilateral internal jugular central venous catheters appear unchanged. Left subclavian pacer. Cardiomegaly. Mitral annular calcifications. Unch anged small pleural effusions. No pneumothorax. Extensive alveolar opacities with interstitial coarse jamee is unchanged. Spondylitic spurring of the spine. IMPRESSION: 1. Lines and tubes as above. 2. Stable appearance of the multifocal pneumonia with probable small pleural effusions. 3. No pneumothorax. ACT 112: Negative or not required by law. The above report was generated using voice recognition software. It may contain grammatical, syntax o r spelling errors. Electronically signed by: Brian Lawrence M.D. 07/31/2021 7:21 PM
[2021-07-31 21:16] LABS: Partial Thromboplastin Ratio 3.2
[2021-07-31 21:21] LABS: Partial Thromboplastin Time 85.2 Seconds (21.0-31.0)
[2021-07-31] MEDS ORDERED: PHARMACY ARGATROBAN RATE CHANGE ONE (21:30)
[2021-07-31] MEDS ORDERED: STAT IV Infusion **Titration per Protocol STA (22:59)
[2021-07-31] MEDS ORDERED: PROPOFOL BOLUS FROM BAG IV PRN (22:59)
[2021-08-01] MEDS: INSULIN ASPART 100 UNITS/ML VIAL SC SCH ×6 (00:15→22:09)
[2021-08-01] MEDS: TUBE FEEDING WATER FLUSH OG SCH ×6 (00:16→22:09)
[2021-08-01] MEDS: methylPREDNISolone 30 MG in SYRINGE 0 ML IV SCH ×3 (00:17→13:10)
[2021-08-01 02:20] LABS: Partial Thromboplastin Ratio 2.8
[2021-08-01 02:27] LABS: Partial Thromboplastin Time 74.4 Seconds (21.0-31.0)
[2021-08-01] MEDS ORDERED: PHARMACY ARGATROBAN RATE CHANGE ONE ×2 (02:45→05:15)
[2021-08-01] MEDS: propofoL 1,000 MG/100 ML VIAL IV SCH ×3 (03:02→18:11)
[2021-08-01 04:45] LABS: Hematocrit (blood only) 26.6 % (37-47); Hemoglobin 8.9 g/dL (12.0-16.0); Mean Corpuscular Hemoglobin 31.4 pg (25-34); Mean Corpuscular Hgb Conc 33.5 g/dL (32-36); Mean Platelet Volume 12.9 fL (7.4-10.4); Nucleated RBC # (auto) 0.09 K/uL (0-0); Nucleated RBC % (auto) 0.7 %; Platelet Count 54 K/uL (130-400); RDW Coefficient of Variation 15.7 % (11.5-14.5); RDW Standard Deviation 52.2 fL (36.4-46.3); Red Blood Count 2.83 M/uL (4.2-5.4); White Blood Count 12.43 K/uL (4.8-10.8)
[2021-08-01 04:57] LABS: Partial Thromboplastin Ratio 2.5
[2021-08-01 04:59] LABS: iSTAT Arterial Blood Gas HCO3 21 meg/L (19-24); iSTAT Arterial Blood Gas pCO2 32 mmHg (35-46); iSTAT Arterial Blood Gas pH 7.42 (7.35-7.45); iSTAT Arterial Blood Gas pO2 67 mmHg (80-95); iSTAT Carbon Dioxide 22 mmol/L (24-31); iSTAT FiO2 50 %; iSTAT Site Art Line
[2021-08-01 05:06] LABS: Albumin Level 1.9 gm/dl (3.4-5.0); BUN Creatinine Ratio 40.5 (10-20); Bilirubin Direct 0.3 mg/dl (0-0.2); Bilirubin,Total 0.6 mg/dl (0.2-1); Creatinine Clr Calc Pharmacy 20.7 ml/min; Est GFR (African American) 20.6 ml/min; Est GFR (Non-African American) 17.8 ml/min; Magnesium 2.9 mg/dl (1.8-2.4); Phosphorus 5.6 mg/dl (2.5-4.9); Potassium 4.9 mmol/L (3.5-5.1); Total Protein 6.3 gm/dl (6.4-8.2)
[2021-08-01 06:20] LABS: Basophils # (auto) 0.01 K/uL (0-0.2); Basophils % (auto) 0.1 %; Immature Granulocytes # (auto) 0.08 K/uL (0.00-0.02); Immature Granulocytes % (auto) 0.6 %; Lymphocytes # (auto) 0.55 K/uL (1.2-3.4); Lymphocytes % (auto) 4.4 %; Monocytes # (auto) 0.25 K/uL (0.11-0.59); Neutrophils # (auto) 11.54 K/uL (1.4-6.5); Neutrophils % (auto) 92.9 %; Polychromasia 1+
[2021-08-01] MEDS: fentaNYL DRIP 1,250 MCG/250 ML BAG IV SCH (06:56)
[2021-08-01] MEDS: POLYETHYLENE (MIRALAX) 17 GM PACK PO SCH (07:56)
[2021-08-01] MEDS: SENNOSIDES 8.8 MG/5 ML UDC PO SCH ×2 (07:56→22:11)
[2021-08-01] MEDS: LACTULOSE SYRUP 20 GM/30 ML UDC PO SCH (07:56)
[2021-08-01] MEDS: QUEtiapine FUMARATE 25 MG TABLET PO SCH (08:07)
[2021-08-01] MEDS: clonazePAM 1 MG TAB PO SCH ×2 (08:07→22:09)
[2021-08-01] MEDS: ATORVASTATIN 40 MG TAB PO SCH (08:08)
[2021-08-01] MEDS: GABAPENTIN 250 MG/5 ML 470 ML BTL PO SCH ×3 (08:08→22:10)
[2021-08-01] MEDS: INSULIN HUMAN NPH SC SCH ×2 (08:30→22:10)
[2021-08-01 08:58] LABS: Partial Thromboplastin Ratio 2.3
--- NOTE | 2021-08-01 08:58 | XRay Report ---
XR chest 1V portable CLINICAL HISTORY: Follow-up bilateral multifocal pneumonia.. COMPARISON STUDY: 07/31/2021 TECHNIQUE: 1 view of the chest FINDINGS: Single frontal view of the chest demonstrates the cardiomediastinal silhouette to be within normal li mits. Tubes and catheters are unchanged. Extensive bilateral alveolar opacities are again seen and es sentially unchanged. There is again minimal blunting of left costophrenic angle suspicious for small left pleural effusion. There is no evidence for vascular congestion. There is no acute osseous pathol ogy. IMPRESSION: Extensive bilateral alveolar opacities are again seen and essentially unchanged. There is again evidence for small left pleural effusion. ACT 112: Negative or not required by law. Electronically signed by: Ashutosh Medeiros M.D. 08/01/2021 8:57 AM
[2021-08-01 09:00] LABS: Partial Thromboplastin Time 60.4 Seconds (21.0-31.0)
[2021-08-01] MEDS ORDERED: INSULIN GLARGINE SOLOSTAR 100 UNITS/ML 3 ML PEN SC SCH (09:00)
[2021-08-01] MEDS: PANTOprazole 40 MG in SYRINGE 0 ML IV SCH (11:00)
--- NOTE | 2021-08-01 11:08 | Pharmacy Report ---
Pharmacy Glycemic Short Note 2 - Date of Service August 01, 2021 - Glycemic Short BSG Results (Last 24 hours): 07/31/21 07/31/21 07/31/21 11:43 17:08 19:11 Glucose POC Glucose 169 H 172 H 215 H 08/01/21 08/01/21 08/01/21 00:13 04:17 04:36 Glucose 180 H POC Glucose 193 H 195 H 08/01/21 07:46 Glucose POC Glucose 254 H OUTPATIENT ANTIDIABETIC REGIMEN: * Lantus 43 units SC AM + 26 units SC PM * Novolog 10 units w/ breakfast + 18 units w/ lunch + 18 units w/ dinner * HbA1c = 7.5% 07/16/21 ASSESSMENT: 08/01: * BSGs were acceptable yesterday. Did have a high of 215 mg/dL in the evening. * BSG this AM up to 254 mg/dL. Novasource renal running at goal and continues on Solumedrol 30 mg IV every 6 hours. * Increased basal to help cover tube feeds and increased NPH to help cover steroids. 07/31: * BSG's responded to reduction in basal and bolus insulin yesterday in response to steroid taper and lower BSG's preceeding. Goal BSG 140-180 mg/dL for ICU status patient * BSG's did gradually increase and are now persistently slightly above goal range, ranging 182-213 yesterday PM to this AM. Will tighten CHO ratio slightly as increase in Novasource renal rate also likely contributing 07/30: * BSG's fell on 07/29 as compared to 07/28 based on adjustments (below) and have ranged 95-133 mg/dL (since lunch yesterday). Steroids also tapered this AM * Per ICU rounds - tubefeed residuals good therefore no anticipated change to Novasource renal * Will keep Lantus but reduce NPH dose significantly * Will loosen Novolog 07/29: * BSGs ranged 179-232 over last 24 hrs - will escalate basal insulin dose - prefer to adjust NPH dose as this insulin can more readily be d/c'd when given BID should steroid dose be adjusted or BSGs fall quicker than expected * Solu-medrol dose was reduced to 60mg IV Q 6 hrs yesterday afternoon and dose may be adjusted again today * BSGs trending down this afternoon. Will continue to monitor this trend. Insulin doses may need adjusted later today if running below goal. PLAN FOR INPATIENT GLYCEMIC CONTROL: * Basal insulin - increased Lantus and NPH * Lantus 30 units SC AM * NPH 10-20 units SC BID * Bolus insulin * NovoLog per scale Q 4 hrs * Goal Range: Low 110 mg/dL - High 140 mg/dL * Correction Factor: 10 mg/dL/unit * Nutritional / Prandial insulin per carb ratio of 1 unit per 3 grams CHO consumed PLAN FOR DISCHARGE: * HbA1c of 7.5% is likely adequate for patient based on age and comorbidities * Reasonable to continue home regimen at discharge provided patient's PO intake is near baseline
[2021-08-01] MEDS ORDERED: FUROSEMIDE 40 MG/4 ML VIAL IV ONE (11:42)
--- NOTE | 2021-08-01 11:57 | Nephrology Progress Note ---
Date of Service August 01, 2021 Assessment & Plan (1) ASPEN (acute kidney injury): Plan: * Admitted w/ COVID pneumonia. ASPEN likely ATN. Vasculitis evaluation was negative * L IJ THC placed and 1st HD completed 07/27/21 * HD yesterday complicated by short runs of VT. Patient is now nonoliguric. 700 cc UO last 24 hours * Hold HD today. Will schedule Furosemide 80 mg IV BID and monitor UO, electrolyte balance (2) CKD (chronic kidney disease) stage 3, GFR 30-59 ml/min: Plan: * Stage III CKD w/ baseline Cr ~1.5 mg/dL due to DKD (3) COVID-19: Plan: * Methylprednisolone weaned to 30 mg Q 6. Continued weaning per ICU team. (4) Respiratory failure with hypoxia: Plan: * COVID pneumonia * CXR film this am shows improved aeration * SaO2 91% on FiO2 60% * Plan of care reviewed with Dr. Jiang this AM (5) Thrombocytopenia: Plan: * Platelets relatively stable. HIT ab pending Admission and Anticipated Discharge Date Admission Date: July 15, 2021 Subjective Ms. Gonzalez was evaluated in the ICU this morning. She is sedated and mechanically ventilated. Dialysis yesterday was complicated by short runs of ventricular tachycardia. 2L UF obtained. Review of Systems Review of Systems: Unobtainable due to endotracheal tube Physical Exam Constitutional: + ill appearing Eyes: PERRL, conjunctivae normal, anicteric sclerae ENMT: orotracheal intubation Neck: trachea midline, no thyromegaly Respiratory: coarse breath sounds bilaterally Cardiovascular: Rate/Rhythm: regular rate and regular rhythm Extremities: + edema (trace LE) Gastrointestinal (Abdomen): Percussion/Palpation: abdomen soft (hypoactive bowel sounds) Skin: no rashes, warm and dry Neurologic: sedated Results & Data ([facility] [place]) Vital Signs (Past 12 Hours) Vital Signs Temp Pulse Resp BP BP BP Pulse Ox 08/01/21 10:00 36.7 C 82 20 146/54 H 91 08/01/21 09:30 36.8 C 84 26 H 91 08/01/21 09:00 36.9 C 78 26 H 90 08/01/21 08:30 36.9 C 79 23 83 L 08/01/21 08:00 36.9 C 74 21 146/50 H 144/50 H 93 08/01/21 07:30 36.9 C 79 23 94 08/01/21 07:00 36.8 C 72 22 94 08/01/21 06:45 36.7 C 71 26 H 94 08/01/21 06:00 36.7 C 78 22 151/96 H 95 08/01/21 05:00 36.8 C 84 31 H 134/72 94 08/01/21 04:00 36.7 C 69 22 152/52 H 94 08/01/21 03:00 36.7 C 88 27 H 146/71 H 94 08/01/21 02:10 73 30 H 92 08/01/21 02:00 36.7 C 78 24 146/67 H 95 08/01/21 01:00 36.8 C 72 23 131/48 L 93 08/01/21 00:00 36.9 C 71 29 H 112/50 L 93 Laboratory Results Laboratory Tests 08/01/21 08/01/21 04:17 04:17 WBC 12.43 H Hgb 8.9 L Hct 26.6 L Plt Count 54 L Sodium 135 L Potassium 4.9 Chloride 102 Carbon Dioxide 23 BUN 101 H Creatinine 2.49 H D Glucose 180 H PG Care Time/CCT Total # of Minutes Spent Total Time Spent with Patient: Total time spent is greater than 50% in coordination of care (as documented) at patient's floor/unit and/or counseling patient: Coding Level of Care Code 46385 Subseq Hosp Care Lvl 3 Diagnoses ASPEN (acute kidney injury) N17.9 CKD (chronic kidney disease) stage 3, GFR 30-59 ml/min N18.3 COVID-19 U07.1 Respiratory failure with hypoxia J96.01 Chronicity: acute Thrombocytopenia D69.6 (1) Respiratory failure with hypoxia Chronicity: acute Qualified Code(s): J96.01 - Acute respiratory failure with hypoxia
[2021-08-01 12:57] LABS: Partial Thromboplastin Ratio 2.3
[2021-08-01] MEDS: FUROSEMIDE 40 MG/4 ML VIAL IV SCH ×2 (13:10→22:10)
--- NOTE | 2021-08-01 14:47 | Critical Care Progress Note ---
Date of Service August 01, 2021 Assessment & Plan (1) COVID-19: (2) Respiratory failure with hypoxia: (3) CKD (chronic kidney disease) stage 3, GFR 30-59 ml/min: (4) Hx of heart artery stent: (5) Hemoptysis: Plan: Impression: 80-year-old female fully vaccinated for Covid admitted to the facility 07/15/2021 with acute on chronic hypoxemic respiratory failure. She was intubated 07/20/2021 and extubated 07/23/2021 but unfortunately then developed hemoptysis and was reintubated 07/25/2021. 24-hour events: Discussed with nephrology. Holding off on dialysis today. We will pursue high-dose diuretics to see if we can convert her from oliguric renal failure to nonoliguric renal failure. Electrolytes and acid-base status are acceptable. She is tolerating pressure support ventilation but neurologically still taking some time to recover. She is quite fragile and desaturates with any significant manipulation. Recommendations: Neurologic:Intubated and Sedated for mechanical ventilation. We will discontinue fentanyl and try and wean propofol. In spite of chronic propofol use, triglycerides remain stable at 122 mg/Geoffrey. No indication for paralytics currently. Continue clonazepam and seroquel. QTC on 07/29/2021 was 407 ms. Mental status needs to improve in order to consider a trial of possible extubation. Pulmonary: Hypoxic respiratory failure secondary to Covid pneumonia. Patient extubated after initial trial mechanical ventilation, had respiratory distress post extubation with associated hemoptysis, BIPAP failed and re-intubated on 07/25/21 and then proned. Worsening of biilateral interstitial infiltrates and groundglass opacity seen with small bilateral effusions. Was placed on high- dose Solu-Medrol for possibility of diffuse alveolar hemorrhage however this was not identified on bronchoscopy and continuing to taper steroids. We will decrease to Solu-Medrol 30 mg every 12 and likely discontinue over the next 48 hours depending on clinical stability. OLI screen negative. Anti-GBM negative. Beta glucan ordered as well to evaluate for possible fungal process is still pending. Bronchoscopy specimen sent for cytology, cell count differential, PJP PCR as well as AFB, routine respiratory, fungal and viral cultures. We will continue to work on potential extubation based on mental status. I think her respiratory status has significantly improved with ultrafiltration associated with dialysis. Cardiovascular: She has an extensive history of coronary artery disease. Echo with LVEF of 55 to 60%. Mild aortic regurgitation. Severe mitral annular calcification. Moderate mitral regurgitation. She remains off pressors. QTc only 407 on EKG showing atrial fibrillation. Currently on argatroban for possible heparin-induced thrombocytopenia Gastrointestinal: OGT. Dietary managing tube feeding with bowel regimen. Renal: Appreciate nephrology input. HD per nephrology. No evidence of pulmonary renal syndrome based on serologies. Ultrafiltration today. Infectious disease: Completed 8 days of Zosyn. Antibiotics discontinued 07/27. Blood cultures from the fifth of show no growth to date. Respiratory culture with pansensitive stenotrophomonas from 07/27. Day #3/14 ceftazidime. Continue to follow fever curve and white blood cell count. Fever curve better and white blood cell count is slightly improved. Hematologic: Hemoptysis resolved. Hemoglobin stable. Her platelet counts continue to drop. Awaiting confirmatory serological testing for HIT. Venous thrombosis identified in the calf veins and the patient was initiated on argatroban. Continue to follow platelet counts in the hope that they recover. Endocrine: Hyperglycemia management per ICU pharmacist. VTE prophylaxis: Hold subcu heparin for DVT prophylaxis while we await heparin antibodies CODE STATUS: Full code. Disposition: Remain in the ICU. Prognosis is guarded. Updated Catherine on the phone today. We will continue efforts to try and liberate her from the ventilator in hopes of having her participate in the discussion as well. I have personally spent 43 minutes of critical care time in the direct management of this patient. This is a life/limb threatening event. This includes time spent evaluating patient, direct bedside care, chart review, placing orders, interpretation of diagnostic studies, discussion with consultants, patient, and family members, as well as other required patient management activities. This time is exclusive of all separately billable procedures, and teaching time and separate from and in addition to any other critical care service time. Admission and Anticipated Discharge Date Admission Date: July 15, 2021 Subjective intubated and sedated Review of Systems Review of Systems: Unobtainable due to endotracheal tube Physical Exam Constitutional: + morbidly obese and + mechanically ventilated; no acute distress Eyes: + anicteric sclerae ENMT: Mouth: + dry oral mucous membranes; no oral mucosal abnormality Neck: normal visual inspection and trachea midline Respiratory: symmetric chest movement Auscultation: + rhonchi Cardiovascular: Rate/Rhythm: regular rate Heart Sounds: normal S1 and normal S2 Extremities: + edema Gastrointestinal (Abdomen): Inspection/Auscultation: normal bowel sounds Percussion/Palpation: abdomen soft Musculoskeletal: Extremities: no cyanosis and no clubbing Skin: normal turgor; no lesions Neurologic: Motor/Sensory: no tremor and no asterixis Results & Data Results & Data ([facility]) Vital Signs (Past 12 Hours) Vital Signs Temp Pulse Resp BP BP BP Pulse Ox 08/01/21 11:25 85 24 89 L 08/01/21 10:00 36.7 C 82 20 146/54 H 91 08/01/21 09:30 36.8 C 84 26 H 91 08/01/21 09:00 36.9 C 78 26 H 90 08/01/21 08:30 36.9 C 79 23 83 L 08/01/21 08:00 36.9 C 90 30 H 146/50 H 144/50 H 92 08/01/21 07:30 36.9 C 79 23 94 08/01/21 07:00 36.8 C 72 22 94 08/01/21 06:45 36.7 C 71 26 H 94 08/01/21 06:00 36.7 C 78 22 151/96 H 95 08/01/21 05:00 36.8 C 84 31 H 134/72 94 08/01/21 04:00 36.7 C 69 22 152/52 H 94 08/01/21 03:00 36.7 C 88 27 H 146/71 H 94 Critical Care Results & Data Vital Signs (Past 12 Hours) Vital Signs Temp Pulse Resp BP BP BP Pulse Ox 08/01/21 11:25 85 24 89 L 08/01/21 10:00 36.7 C 82 20 146/54 H 91 08/01/21 09:30 36.8 C 84 26 H 91 08/01/21 09:00 36.9 C 78 26 H 90 08/01/21 08:30 36.9 C 79 23 83 L 08/01/21 08:00 36.9 C 90 30 H 146/50 H 144/50 H 92 08/01/21 07:30 36.9 C 79 23 94 08/01/21 07:00 36.8 C 72 22 94 08/01/21 06:45 36.7 C 71 26 H 94 08/01/21 06:00 36.7 C 78 22 151/96 H 95 08/01/21 05:00 36.8 C 84 31 H 134/72 94 08/01/21 04:00 36.7 C 69 22 152/52 H 94 08/01/21 03:00 36.7 C 88 27 H 146/71 H 94 Lab & Micro Results (Past 24 Hours) RBC 2.83 M/uL (4.2-5.4) L 08/01/21 WBC 12.43 K/uL (4.8-10.8) H 08/01/21 Hgb 8.9 g/dL (12.0-16.0) L 08/01/21 Hct 26.6 % (37-47) L 08/01/21 MCV 94.0 fL (80-100) 08/01/21 MCH 31.4 pg (25-34) 08/01/21 MCHC 33.5 g/dL (32-36) 08/01/21 RDW Standard Deviation 52.2 fL (36.4-46.3) H 08/01/21 RDW Coefficient of Variation 15.7 % (11.5-14.5) H 08/01/21 Plt Count 54 K/uL (130-400) L 08/01/21 MPV 12.9 fL (7.4-10.4) H 08/01/21 Nucleated Red Blood Cells % (auto) 0.7 % 08/01/21 Nucleated RBC Absolute Count (auto) 0.09 K/uL (0-0) H 08/01/21 Neutrophils (%) (Auto) 92.9 % 08/01/21 Lymphocytes (%) (Auto) 4.4 % 08/01/21 Monocytes # (Auto) 0.25 K/uL (0.11-0.59) 08/01/21 Eosinophils # (Auto) 0.00 K/uL (0-0.5) 08/01/21 Immature Granulocyte % (Auto) 0.6 % 08/01/21 Neutrophils # (Auto) 11.54 K/uL (1.4-6.5) H 08/01/21 Lymphocytes # (Auto) 0.55 K/uL (1.2-3.4) L 08/01/21 Monocytes # (Auto) 0.25 K/uL (0.11-0.59) 08/01/21 Eosinophils # (Auto) 0.00 K/uL (0-0.5) 08/01/21 Basophils # (Auto) 0.01 K/uL (0-0.2) 08/01/21 Immature Granulocyte # (Auto) 0.08 K/uL (0.00-0.02) H 08/01/21 Polychromasia 1+ 08/01/21 Na 135 mmol/L (136-145) L 08/01/21 K 4.9 mmol/L (3.5-5.1) 08/01/21 Cl 102 mmol/L (98-107) 08/01/21 CO2 23 mmol/L (21-32) 08/01/21 Anion Gap 10.0 (3-11) 08/01/21 BUN 101 mg/dl (7-18) H 08/01/21 Creatinine 2.49 mg/dl (0.6-1.2) H 08/01/21 Estimated GFR ( Amer) 20.6 ml/min 08/01/21 Estimated GFR (Non-Af Amer) 17.8 ml/min 08/01/21 BUN/Creatinine Ratio 40.5 (10-20) H 08/01/21 Glu 180 mg/dl (70-99) H 08/01/21 Ca 8.0 mg/dl (8.5-10.1) L 08/01/21 Phosphorus Level 5.6 mg/dl (2.5-4.9) H 08/01/21 Total Bilirubin 0.6 mg/dl (0.2-1) 08/01/21 Direct Bilirubin 0.3 mg/dl (0-0.2) H 08/01/21 AST 104 U/L (15-37) H 08/01/21 ALT 90 (12-78) H 08/01/21 Alkaline Phosphatase 103 U/L (45-117) 08/01/21 TP 6.3 gm/dl (6.4-8.2) L 08/01/21 Albumin 1.9 gm/dl (3.4-5.0) L 08/01/21 Mg 2.9 mg/dl (1.8-2.4) H 08/01/21 04:17 08/01/21 Calcium Level 8.0 mg/dl (8.5-10.1) L 08/01/21 04:17 08/01/21 Prothromb Time International Ratio 1.0 (0.9-1.1) 07/31/21 15:35 07/31/21 Edin Test NA 08/01/21 04:00 08/01/21 Microbiology 07/26/21 17:22 Aerobic Blood Culture - Final Blood No growth in Aerobic bottle after 5 days. Anaerobic Blood Culture - Final 07/26/21 17:22 Aerobic Blood Culture - Final Blood No growth in Aerobic bottle after 5 days. Anaerobic Blood Culture - Final No growth in Anaerobic bottle after 5 days. Diagnostic Findings (Past 24 Hours) Chest X-Ray 07/31/21 07:00 XR chest 1V portable HISTORY: 80 years-old Female f/u acute respiratory failure COMPARISON: Chest radiograph 07/30/2021 TECHNIQUE: Portable AP view the chest FINDINGS: Endotracheal tube overlies the midline, 2.6 cm superior to the ashlee. Enteric tube courses below the diaphragm with distal tip projected over the gastric body. Bilateral internal jugular central venous catheters appear unchanged. Left subclavian pacer. Cardiomegaly. Mitral annular calcifications. Unchanged small pleural effusions. No pneumothorax. Extensive alveolar opacities with interstitial coarsening is unchanged. Spondylitic spurring of the spine. IMPRESSION: 1. Lines and tubes as above. 2. Stable appearance of the multifocal pneumonia with probable small pleural effusions. 3. No pneumothorax. ACT 112: Negative or not required by law. The above report was generated using voice recognition software. It may contain grammatical, syntax or spelling errors. Electronically signed by: Brian Lawrence M.D. 07/31/2021 7:21 PM Venous Doppler Study 07/31/21 12:27 BILATERAL LOWER EXTREMITY VENOUS DOPPLER HISTORY: Right leg swelling. COMPARISON STUDY: None. FINDINGS: There is normal compressibility, flow, and augmentation within the left lower extremity deep venous system. The right common femoral, superficial femoral, popliteal, and anterior tibial veins are patent. Intermittent flow within the right posterior tibial vein likely representing areas of thrombus. The right peroneal vein is also thrombosed. IMPRESSION: 1. No DVT within the left lower extremity. 2. Deep vein thrombosis involving the right posterior tibial and peroneal veins. No [id number] thrombosis within the right lower extremity. ACT 112: Negative or not required by law. Electronically signed by: Stevo Alvarez M.D. 07/31/2021 2:47 PM Chest X-Ray 08/01/21 07:00 XR chest 1V portable CLINICAL HISTORY: Follow-up bilateral multifocal pneumonia.. COMPARISON STUDY: 07/31/2021 TECHNIQUE: 1 view of the chest FINDINGS: Single frontal view of the chest demonstrates the cardiomediastinal silhouette to be within normal limits. Tubes and catheters are unchanged. Extensive bilateral alveolar opacities are again seen and essentially unchanged. There is again minimal blunting of left costophrenic angle suspicious for small left pleural effusion. There is no evidence for vascular congestion. There is no acute osseous pathology. IMPRESSION: Extensive bilateral alveolar opacities are again seen and essentially unchanged. There is again evidence for small left pleural effusion. ACT 112: Negative or not required by law. Electronically signed by: Ashutosh Medeiros M.D. 08/01/2021 8:57 AM I & O Totals 24 Hours 07/31/21 08/01/21 08/02/21 06:59 06:59 06:59 Intake Total 2288.066 / 2288.066 1523.363 / 1523.363 105.944 / 105.944 Output Total 590 / 590 700 / 700 Balance 1698.066 / 1698.066 823.363 / 823.363 105.944 / 105.944 Cumulative 07/15/21 11:42 thru 08/01/21 10:50 Intake Total 07527.615 Output Total 72990 Balance 6597.615 RT Ventilator Mngmt (Last Documented) Ventilator Ordered Settings Ventilator Support Mode CPAP 08/01/21 11:25 Respiratory Rate 24 08/01/21 11:25 Ventilator Tidal Volume 380 08/01/21 08:00 Setting Minute Ventilation 11.3 08/01/21 11:25 Ventilator Positive Pressure 6 08/01/21 11:25 Support Setting Positive End Expiratory 8 08/01/21 11:25 Pressure Fraction of Inspired Oxygen 50 08/01/21 11:25 Peak Inspiratory Flow 47 07/27/21 19:07 Machine Comment Settings were changed earlier by 08/01/21 11:25 Dr. Jiang Ventilator - PT Measurements Respiratory Rate 24 Exhaled Tidal Volume 468 Minute Ventilation 11.3 Peak Inspiratory Airway 16 Pressure Plateau Pressure 23 Respiratory Cycle Inspiratory: 1:2.5 Expiratory Ratio Inspiratory Phase Time 0.65 End-Tidal CO2 25 Static Lung Compliance 25.60 Dynamic Lung Compliance 58.50 Normal Static Lung Compliance 49.00 Patient Measurements Comment increased FiO2 to achieve SpO2 88% Coding Level of Care Code Critical Care 1st 30-74 mins Diagnoses COVID-19 U07.1 Respiratory failure with hypoxia J96.01 Chronicity: acute CKD (chronic kidney disease) stage 3, GFR 30-59 ml/min N18.3 Hx of heart artery stent Z95.5 Hemoptysis R04.2 Time Spent (min) 43 (1) Respiratory failure with hypoxia Chronicity: acute Qualified Code(s): J96.01 - Acute respiratory failure with hypoxia
--- NOTE | 2021-08-01 20:28 | Hospitalist Progress Note ---
Date of Service August 01, 2021 delayed entry date of service noted above Assessment & Plan (1) Respiratory failure with hypoxia: (2) COVID-19: Plan: Patient vaccinated fully against Covid, last dose November 2020 Plan: per Dr. Nunez's notes with addendum: Acute on chronic hypoxic respiratory failure ARDS secondary to COVID-19 Vaccinated against Covid, last dose November 2020 -CXR:Extensive bilateral airspace opacities which favor an infectious process such as viral pneumonia. Radiographic follow-up to ensure resolution is recommended. Not a candidate for remdesivir Completed dexamethasone course Patient had respiratory distress post extubation, developed hemoptysis CTA showed extensive groundglass opacities are present throughout both lungs characteristic of a viral type pneumonitis and Covid 19 pneumonia. Reintubated on 07/25/21 Had bronchoscopy with bronchoalveolar lavage which showed no evidence of alveolar hemorrhage Neuromuscular blockade discontinued Bronchial wash 07/28/2021: Stenotrophomonas Ceftazidime ordered Solu-Medrol IV continued ASPEN on CKD III Baseline 1.5-1.7; presenting creatinine 1.93 ATN versus acute glomerulonephritis, concern for vasculitis Had dialysis catheter placement on 07/27/21 Continue dialysis as per nephrology Also on Lasix 80 mg IV twice daily Thrombocytopenia Platelet 58,000 HIT antibodies pending No signs of bleeding Monitor Atrial Fibrillation Rate controlled Monitor CAD Continue statin Aspirin held DM II SSI, glycemic pharmacy DVT Px: Heparin SQ--Held due to Hemoptysis CODE STATUS Full code for now Admission and Anticipated Discharge Date Admission Date: July 15, 2021 Subjective Follow-up for acute hypoxic restaurant failure, COVID-19 pneumonia, re intubated for hemoptysis Etc. Seen resting in bed, intubated, sedated Not in distress Hemodialysis in progress No signs of pain No other issues per director peoplesoft of Systems Review of Systems: all noted and negative except for above Results & Data Results & Data ([facility]) Vital Signs (Past 12 Hours) Vital Signs Temp Pulse Resp BP Pulse Ox 08/01/21 19:39 87 29 H 88 L 08/01/21 16:15 95 H 26 H 88 L 08/01/21 16:00 37.3 C 93 H 26 H 87 L 08/01/21 15:30 37.3 C 91 H 25 H 87 L 08/01/21 15:00 37.2 C 92 H 27 H 87 L 08/01/21 14:30 37.1 C 89 26 H 87 L 08/01/21 14:00 37.1 C 90 25 H 86 L 08/01/21 13:00 37.0 C 87 25 H 87 L 08/01/21 12:00 36.9 C 84 25 H 88 L 08/01/21 11:25 85 24 89 L 08/01/21 11:00 36.8 C 78 22 90 08/01/21 10:30 36.8 C 84 29 H 90 08/01/21 10:00 36.7 C 82 20 146/54 H 91 08/01/21 09:30 36.8 C 84 26 H 91 08/01/21 09:00 36.9 C 78 26 H 90 08/01/21 08:30 36.9 C 79 23 83 L all noted and reviewed including below (1) Respiratory failure with hypoxia Chronicity: acute Qualified Code(s): J96.01 - Acute respiratory failure with hypoxia
[2021-08-01 21:21] LABS: Partial Thromboplastin Ratio 2.3
[2021-08-01 21:25] LABS: Partial Thromboplastin Time 59.4 Seconds (21.0-31.0)
[2021-08-02] MEDS: methylPREDNISolone 30 MG in SYRINGE 0 ML IV SCH ×2 (00:22→12:24)
[2021-08-02] MEDS: TUBE FEEDING WATER FLUSH OG SCH ×6 (00:22→20:49)
[2021-08-02] MEDS: INSULIN ASPART 100 UNITS/ML VIAL SC SCH ×6 (00:22→20:49)
[2021-08-02 05:05] LABS: iSTAT Arterial Blood Gas HCO3 21 meg/L (19-24); iSTAT Arterial Blood Gas pCO2 34 mmHg (35-46); iSTAT Arterial Blood Gas pH 7.39 (7.35-7.45); iSTAT Arterial Blood Gas pO2 64 mmHg (80-95); iSTAT Carbon Dioxide 22 mmol/L (24-31); iSTAT FiO2 70 %; iSTAT Site Art Line
[2021-08-02] MEDS: PANTOprazole 40 MG in SYRINGE 0 ML IV SCH (07:55)
[2021-08-02] MEDS: POLYETHYLENE (MIRALAX) 17 GM PACK PO SCH (07:56)
[2021-08-02] MEDS: LACTULOSE SYRUP 20 GM/30 ML UDC PO SCH (07:56)
[2021-08-02] MEDS: clonazePAM 1 MG TAB PO SCH (07:57)
[2021-08-02] MEDS: FUROSEMIDE 40 MG/4 ML VIAL IV SCH ×3 (07:57→20:49)
[2021-08-02] MEDS: ATORVASTATIN 40 MG TAB PO SCH (07:57)
[2021-08-02] MEDS: QUEtiapine FUMARATE 25 MG TABLET PO SCH (07:58)
[2021-08-02] MEDS: GABAPENTIN 250 MG/5 ML 470 ML BTL PO SCH ×2 (07:58→13:39)
[2021-08-02] MEDS: SENNOSIDES 8.8 MG/5 ML UDC PO SCH ×2 (07:58→20:50)
--- NOTE | 2021-08-02 08:15 | Hospitalist Progress Note ---
Date of Service August 02, 2021 delayed entry date of service noted above Assessment & Plan (1) Respiratory failure with hypoxia: (2) COVID-19: Plan: Patient vaccinated fully against Covid, last dose November 2020 Plan: per Dr. Nunez's notes with addendum: Acute on chronic hypoxic respiratory failure ARDS secondary to COVID-19 Vaccinated against Covid, last dose November 2020 -CXR:Extensive bilateral airspace opacities which favor an infectious process such as viral pneumonia. Radiographic follow-up to ensure resolution is recommended. Not a candidate for remdesivir Completed dexamethasone course Patient had respiratory distress post extubation, developed hemoptysis CTA showed extensive groundglass opacities are present throughout both lungs characteristic of a viral type pneumonitis and Covid 19 pneumonia. Reintubated on 07/25/21 Had bronchoscopy with bronchoalveolar lavage which showed no evidence of alveolar hemorrhage Neuromuscular blockade discontinued Bronchial wash 07/28/2021: Stenotrophomonas Ceftazidime ordered Solu-Medrol 30 mg continued ASPEN on CKD III Baseline 1.5-1.7; presenting creatinine 1.93 ATN versus acute glomerulonephritis, concern for vasculitis Had dialysis catheter placement on 07/27/21 Continue dialysis as per nephrology Also on Lasix 80 mg IV twice daily Thrombocytopenia Platelet 54k HIT antibodies pending No signs of bleeding Monitor Atrial Fibrillation Rate controlled Monitor CAD Continue statin Aspirin held DM II SSI, glycemic pharmacy DVT Px: Heparin SQ--Held due to Hemoptysis CODE STATUS Full code for now Admission and Anticipated Discharge Date Admission Date: July 15, 2021 Subjective Follow-up for acute hypoxic respiratory failure, COVID-19 pneumonia, etc. Patient remains intubated, sedated Not in acute distress No signs of pain Positive fever Breathing trial in progress No other acute issues per supervisor particleboard of Systems Review of Systems: all noted and negative except for above Physical Exam Physical Exam: General-sedated, intubated, breathing with no effort or access ory muscle use Eyes- anicteric Neck- no JVD [address] No bleeding Lungs-positive mild rhonchi bilaterally anteriorly No wheezing Heart- normal rate, regular rhythm; no murmurs Abdomen- normal bowel sounds, nondistended, soft, nontender Extremities-mild pretibial edema, no calf tenderness Neuro-sedated Skin- warm & dry Results & Data Results & Data ([facility]) Vital Signs (Past 12 Hours) Vital Signs Temp Pulse Resp Pulse Ox 12/12/21 06:16 95 H 33 H 90 08/02/21 05:15 38.4 C H 111 H 34 H 90 08/02/21 05:00 38.4 C H 106 H 33 H 90 08/02/21 04:45 38.4 C H 83 33 H 90 08/02/21 04:30 38.3 C H 95 H 32 H 90 08/02/21 04:15 38.3 C H 98 H 35 H 89 L 08/02/21 04:00 38.3 C H 98 H 31 H 90 08/02/21 03:45 38.3 C H 97 H 30 H 90 08/02/21 03:30 38.2 C H 91 H 30 H 90 08/02/21 03:15 38.2 C H 102 H 30 H 89 L 08/02/21 03:00 38.2 C H 93 H 30 H 89 L 08/02/21 02:45 38.1 C H 95 H 30 H 89 L 08/02/21 02:30 38.1 C H 104 H 29 H 89 L 08/02/21 02:28 101 H 30 H 89 L 08/02/21 02:15 38.1 C H 93 H 28 H 89 L 08/02/21 02:00 38.0 C H 99 H 29 H 90 08/02/21 01:45 38.0 C H 93 H 29 H 91 08/02/21 01:30 38.0 C H 85 26 H 91 08/02/21 01:15 37.9 C H 103 H 29 H 92 08/02/21 01:00 37.9 C H 83 28 H 91 08/02/21 00:45 37.9 C H 92 H 26 H 92 08/02/21 00:30 38.0 C H 105 H 24 92 08/02/21 00:15 38.0 C H 105 H 33 H 89 L 08/02/21 00:00 38.0 C H 102 H 28 H 90 08/01/21 23:49 93 H 28 H 89 L 08/01/21 23:45 38.0 C H 102 H 22 87 L 08/01/21 23:30 38.0 C H 99 H 32 H 88 L 08/01/21 23:15 38.0 C H 95 H 30 H 87 L 08/01/21 23:00 38.0 C H 101 H 29 H 88 L 08/01/21 22:45 38.0 C H 88 29 H 87 L 08/01/21 22:30 38.0 C H 101 H 28 H 88 L 08/01/21 22:15 38.0 C H 100 H 27 H 88 L 08/01/21 22:00 38.0 C H 102 H 28 H 88 L 08/01/21 21:45 37.9 C H 101 H 26 H 88 L 08/01/21 21:30 37.9 C H 100 H 28 H 88 L 08/01/21 21:15 37.9 C H 88 26 H 88 L 08/01/21 21:00 37.9 C H 99 H 27 H 88 L 08/01/21 20:45 37.9 C H 104 H 26 H 87 L 08/01/21 20:30 37.8 C H 100 H 21 87 L 08/01/21 20:15 37.8 C H 94 H 27 H 88 L all noted and reviewed including below (1) Respiratory failure with hypoxia Chronicity: acute Qualified Code(s): J96.01 - Acute respiratory failure with hypoxia
[2021-08-02] MEDS: INSULIN HUMAN NPH SC SCH ×2 (08:20→20:48)
[2021-08-02] MEDS ORDERED: INSULIN GLARGINE SOLOSTAR 100 UNITS/ML 3 ML PEN SC SCH (09:00)
[2021-08-02 09:09] LABS: Hematocrit (blood only) 26.4 % (37-47); Hemoglobin 8.7 g/dL (12.0-16.0); Mean Corpuscular Hemoglobin 31.2 pg (25-34); Mean Corpuscular Volume 94.6 fL (80-100); Mean Platelet Volume 13.1 fL (7.4-10.4); Nucleated RBC # (auto) 0.15 K/uL (0-0); Nucleated RBC % (auto) 1.6 %; Partial Thromboplastin Ratio 2.4; Platelet Count 59 K/uL (130-400); RDW Coefficient of Variation 16.7 % (11.5-14.5); RDW Standard Deviation 54.5 fL (36.4-46.3); Red Blood Count 2.79 M/uL (4.2-5.4); White Blood Count 9.42 K/uL (4.8-10.8)
[2021-08-02 09:12] LABS: Partial Thromboplastin Time 63.9 Seconds (21.0-31.0)
[2021-08-02 09:20] LABS: Est GFR (African American) 22.8 ml/min; Est GFR (Non-African American) 19.7 ml/min; Potassium 4.9 mmol/L (3.5-5.1)
[2021-08-02 09:21] LABS: BUN Creatinine Ratio 52.8 (10-20); Calcium 8.7 mg/dl (8.5-10.1); Creatinine Clr Calc Pharmacy 22.4 ml/min; Phosphorus 6.1 mg/dl (2.5-4.9)
--- NOTE | 2021-08-02 09:59 | Nephrology Progress Note ---
Date of Service August 02, 2021 Assessment & Plan (1) ASPEN (acute kidney injury): Plan: * Admitted w/ COVID pneumonia. ASPEN likely ATN. Vasculitis evaluation was negative * L IJ THC placed and 1st HD completed 07/27/21 * HD 07/31/21 complicated by short runs of VT * Cr has improved to 2.3 this am. Nonoliguric, 800 cc UO last shift * Hold HD. Will increase Furosemide to 80mg IV q8 hours and monitor PRP, UO (2) CKD (chronic kidney disease) stage 3, GFR 30-59 ml/min: Plan: * Stage III CKD w/ baseline Cr ~1.5 mg/dL due to DKD (3) COVID-19: Plan: * Methylprednisolone weaned to 30 mg IV q12 hours. Continued weaning per ICU team. (4) Respiratory failure with hypoxia: Plan: * COVID pneumonia * CXR film this am shows bilateral infiltrates * SaO2 90% on FiO2 70% * Diuretic dose increased as outlined above (5) Thrombocytopenia: Plan: * Platelets relatively stable. HIT ab pending Admission and Anticipated Discharge Date Admission Date: July 15, 2021 Subjective Sedated, mechanically ventilated. SaO2 90% on FiO2 70%. Bal bag w/ 200 cc dark yellow urine this morning Review of Systems Review of Systems: Unobtainable due to endotracheal tube Physical Exam Constitutional: + ill appearing Eyes: PERRL, conjunctivae normal, anicteric sclerae Neck: trachea midline, no thyromegaly Respiratory: coarse BS bilaterally Cardiovascular: Rate/Rhythm: regular rate and regular rhythm Extremities: + edema (1+ dependent pitting edema) Gastrointestinal (Abdomen): Percussion/Palpation: abdomen soft (hypoactive bowel sounds) Results & Data ([facility]) Vital Signs (Past 12 Hours) Vital Signs Temp Pulse Resp Pulse Ox 08/02/21 06:16 95 H 33 H 90 08/02/21 05:15 38.4 C H 111 H 34 H 90 08/02/21 05:00 38.4 C H 106 H 33 H 90 08/02/21 04:45 38.4 C H 83 33 H 90 08/02/21 04:30 38.3 C H 95 H 32 H 90 08/02/21 04:15 38.3 C H 98 H 35 H 89 L 08/02/21 04:00 38.3 C H 98 H 31 H 90 08/02/21 03:45 38.3 C H 97 H 30 H 90 08/02/21 03:30 38.2 C H 91 H 30 H 90 08/02/21 03:15 38.2 C H 102 H 30 H 89 L 08/02/21 03:00 38.2 C H 93 H 30 H 89 L 08/02/21 02:45 38.1 C H 95 H 30 H 89 L 08/02/21 02:30 38.1 C H 104 H 29 H 89 L 08/02/21 02:28 101 H 30 H 89 L 08/02/21 02:15 38.1 C H 93 H 28 H 89 L 08/02/21 02:00 38.0 C H 99 H 29 H 90 08/02/21 01:45 38.0 C H 93 H 29 H 91 08/02/21 01:30 38.0 C H 85 26 H 91 08/02/21 01:15 37.9 C H 103 H 29 H 92 08/02/21 01:00 37.9 C H 83 28 H 91 08/02/21 00:45 37.9 C H 92 H 26 H 92 08/02/21 00:30 38.0 C H 105 H 24 92 08/02/21 00:15 38.0 C H 105 H 33 H 89 L 08/02/21 00:00 38.0 C H 102 H 28 H 90 08/01/21 23:49 93 H 28 H 89 L 08/01/21 23:45 38.0 C H 102 H 22 87 L 08/01/21 23:30 38.0 C H 99 H 32 H 88 L 08/01/21 23:15 38.0 C H 95 H 30 H 87 L 08/01/21 23:00 38.0 C H 101 H 29 H 88 L 08/01/21 22:45 38.0 C H 88 29 H 87 L 08/01/21 22:30 38.0 C H 101 H 28 H 88 L 08/01/21 22:15 38.0 C H 100 H 27 H 88 L 08/01/21 22:00 38.0 C H 102 H 28 H 88 L Laboratory Results Laboratory Tests 08/02/21 08/02/21 08:29 08:29 WBC 9.42 Hgb 8.7 L Hct 26.4 L Plt Count 59 L Sodium 134 L Potassium 4.9 Chloride 103 Carbon Dioxide 20 L BUN 121 H Creatinine 2.29 H Glucose 137 H PG Care Time/CCT Total # of Minutes Spent Total Time Spent with Patient: Total time spent is greater than 50% in coordination of care (as documented) at patient's floor/unit and/or counseling patient: Coding Level of Care Code 91952 Subseq Hosp Care Lvl 3 Diagnoses ASPEN (acute kidney injury) N17.9 CKD (chronic kidney disease) stage 3, GFR 30-59 ml/min N18.3 COVID-19 U07.1 Respiratory failure with hypoxia J96.01 Chronicity: acute Thrombocytopenia D69.6 (1) Respiratory failure with hypoxia Chronicity: acute Qualified Code(s): J96.01 - Acute respiratory failure with hypoxia
--- NOTE | 2021-08-02 10:09 | XRay Report ---
XR chest 1V portable CLINICAL HISTORY: Hypoxia TECHNIQUE: Single frontal radiograph of the chest was obtained. Comparison: Comparison is made to chest one view 08/01/2021 FINDINGS: Lines and tubes are stable. The cardiomediastinal silhouette is obscured. Interval worsening of diffu se airspace opacities. No evidence of pleural effusion or pneumothorax. IMPRESSION: Interval worsening of diffuse airspace opacities. ACT 112: Negative or not required by law. Electronically signed by: Claudio Neves M.D. 08/02/2021 10:08 AM
[2021-08-02 10:47] LABS: Appearance Urine Turbid (Clear); Bilirubin Urine Negative (Negative); Blood Urine 3+ (Negative); Color Urine Dark Yellow; Epithelial Cell Urine Auto >30 /lpf (0-5); Glucose Urine UA Negative (Negative); Ketones Urine Negative (Negative); Leukocyte Esterase Urine 1+ (Negative); Nitrite Urine Negative (Negative); Protein Urine 2+ (Negative); Specific Gravity Urine 1.017 (1.000-1.030); Urobilinogen Urine Negative (Negative)
[2021-08-02 10:55] LABS: RBC Urine Automated >30 /hpf (0-4)
[2021-08-02 10:56] LABS: Bacteria Urine Automated 1+ (Negative)
--- NOTE | 2021-08-02 11:33 | Hospitalist Progress Note ---
Date of Service August 02, 2021 Assessment & Plan (1) Respiratory failure with hypoxia: (2) COVID-19: Plan: Patient vaccinated fully against Covid, last dose November 2020 Plan: per Dr. Nunez's notes with addendum: Acute on chronic hypoxic respiratory failure ARDS secondary to COVID-19 Vaccinated against Covid, last dose November 2020 -CXR:Extensive bilateral airspace opacities which favor an infectious process such as viral pneumonia. Radiographic follow-up to ensure resolution is recommended. Not a candidate for remdesivir Completed dexamethasone course Patient had respiratory distress post extubation, developed hemoptysis CTA showed extensive groundglass opacities are present throughout both lungs characteristic of a viral type pneumonitis and Covid 19 pneumonia. Reintubated on 07/25/21 Had bronchoscopy with bronchoalveolar lavage which showed no evidence of alveolar hemorrhage Neuromuscular blockade discontinued Bronchial wash 07/28/2021: Stenotrophomonas Ceftazidime ordered Solu-Medrol 30 mg [id number] ASPEN on CKD III Baseline 1.5-1.7; presenting creatinine 1.93 ATN versus acute glomerulonephritis, concern for vasculitis Had dialysis catheter placement on 07/27/21 Continue dialysis as per nephrology Also on Lasix 80 mg IV twice daily Thrombocytopenia Platelet 54k HIT antibodies pending Argatroban started No signs of bleeding Monitor Atrial Fibrillation Rate controlled Monitor CAD Continue statin Aspirin held DM II SSI, glycemic pharmacy DVT Px: Heparin SQ--Held due to Hemoptysis CODE STATUS Full code for now Admission and Anticipated Discharge Date Admission Date: July 15, 2021 Subjective ff up for acute hypoxic respiratory failure, COVID 19 pneumonia, etc seen intubated, sedated no signs of respiratory distress, pain fio2 50% no other issues Review of Systems Review of Systems: all noted and negative except for above Physical Exam 2 Physical Exam: General- oriented x 3, not in distress, speaks in sentences with no effort or accessory muscle use Eyes- anicteric Neck- no JVD Lungs- mild rales BL Heart- normal rate, regular rhythm; no murmurs Abdomen- normal bowel sounds, nondistended, soft, nontender Extremities- mild lower leg edema, no calf tenderness Neuro-sedated Skin- warm & dry Results & Data Results & Data ([facility]) Vital Signs (Past 12 Hours) Vital Signs Temp Pulse Resp Pulse Ox 08/02/21 11:15 38.8 C H 89 34 H 89 L 08/02/21 11:00 38.8 C H 105 H 35 H 89 L 08/02/21 10:45 38.8 C H 103 H 31 H 89 L 08/02/21 10:30 38.8 C H 103 H 34 H 90 08/02/21 10:15 38.8 C H 108 H 36 H 89 L 08/02/21 10:00 38.8 C H 107 H 31 H 90 08/02/21 09:45 38.7 C H 97 H 33 H 91 08/02/21 09:30 38.8 C H 110 H 33 H 91 08/02/21 09:15 38.7 C H 98 H 29 H 91 08/02/21 09:00 38.7 C H 106 H 31 H 91 08/02/21 08:45 38.7 C H 95 H 32 H 90 08/02/21 08:30 38.7 C H 105 H 34 H 90 08/02/21 08:15 38.7 C H 100 H 35 H 90 08/02/21 08:00 38.7 C H 102 H 36 H 90 08/02/21 07:45 38.7 C H 98 H 35 H 89 L 08/02/21 07:30 38.7 C H 97 H 36 H 90 08/02/21 07:15 38.6 C H 106 H 35 H 90 08/02/21 07:00 38.6 C H 102 H 37 H 90 08/02/21 06:16 95 H 33 H 90 08/02/21 05:15 38.4 C H 111 H 34 H 90 08/02/21 05:00 38.4 C H 106 H 33 H 90 08/02/21 04:45 38.4 C H 83 33 H 90 08/02/21 04:30 38.3 C H 95 H 32 H 90 08/02/21 04:15 38.3 C H 98 H 35 H 89 L 08/02/21 04:00 38.3 C H 98 H 31 H 90 08/02/21 03:45 38.3 C H 97 H 30 H 90 08/02/21 03:30 38.2 C H 91 H 30 H 90 08/02/21 03:15 38.2 C H 102 H 30 H 89 L 08/02/21 03:00 38.2 C H 93 H 30 H 89 L 08/02/21 02:45 38.1 C H 95 H 30 H 89 L 08/02/21 02:30 38.1 C H 104 H 29 H 89 L 08/02/21 02:28 101 H 30 H 89 L 08/02/21 02:15 38.1 C H 93 H 28 H 89 L 08/02/21 02:00 38.0 C H 99 H 29 H 90 08/02/21 01:45 38.0 C H 93 H 29 H 91 08/02/21 01:30 38.0 C H 85 26 H 91 08/02/21 01:15 37.9 C H 103 H 29 H 92 08/02/21 01:00 37.9 C H 83 28 H 91 08/02/21 00:45 37.9 C H 92 H 26 H 92 08/02/21 00:30 38.0 C H 105 H 24 92 08/02/21 00:15 38.0 C H 105 H 33 H 89 L 08/02/21 00:00 38.0 C H 102 H 28 H 90 08/01/21 23:49 93 H 28 H 89 L 08/01/21 23:45 38.0 C H 102 H 22 87 L 08/01/21 23:30 38.0 C H 99 H 32 H 88 L all noted and reviewed including below (1) Respiratory failure with hypoxia Chronicity: acute Qualified Code(s): J96.01 - Acute respiratory failure with hypoxia
--- NOTE | 2021-08-02 13:23 | Pharmacy Report ---
Pharmacy Glycemic Short Note 2 - Date of Service August 02, 2021 - Glycemic Short BSG Results (Last 24 hours): 08/01/21 08/01/21 08/02/21 16:39 20:53 00:14 Glucose POC Glucose 240 H 99 44 L* 08/02/21 08/02/21 08/02/21 00:16 00:59 05:08 Glucose POC Glucose 43 L* 111 H 114 H 08/02/21 08/02/21 08/02/21 08:02 08:29 11:56 Glucose 137 H POC Glucose 133 H 125 H OUTPATIENT ANTIDIABETIC REGIMEN: * Lantus 43 units SC AM + 26 units SC PM * Novolog 10 units w/ breakfast + 18 units w/ lunch + 18 units w/ dinner * HbA1c = 7.5% 07/16/21 ASSESSMENT: 08/02: * Uncontrolled BSGs yesterday: 298-007-160-99-43 mg/dL * Patient was asymptomatic with hypoglycemia around midnight. Did require full amp of D50 to improve BSG to 111 mg/dL. * Patient received 30 units Lantus + 30 units NPH + 72 units Novolog (KWD=495 units) * Solumedrol was decreased to 30 mg IV every 12 hours yesterday * Fasting BSG was 133 mg/dL this AM - controlled * Reduced Lantus and NPH dosing this morning given decrease in steroids and low BSG 08/01: * BSGs were acceptable yesterday. Did have a high of 215 mg/dL in the evening. * BSG this AM up to 254 mg/dL. Novasource renal running at goal and continues on Solumedrol 30 mg IV every 6 hours. * Increased basal to help cover tube feeds and increased NPH to help cover steroids. 07/31: * BSG's responded to reduction in basal and bolus insulin yesterday in response to steroid taper and lower BSG's preceeding. Goal BSG 140-180 mg/dL for ICU status patient * BSG's did gradually increase and are now persistently slightly above goal range, ranging 182-213 yesterday PM to this AM. Will tighten CHO ratio slightly as increase in Novasource renal rate also likely contributing 07/30: * BSG's fell on 07/29 as compared to 07/28 based on adjustments (below) and have ranged 95-133 mg/dL (since lunch yesterday). Steroids also tapered this AM * Per ICU rounds - tubefeed residuals good therefore no anticipated change to Novasource renal * Will keep Lantus but reduce NPH dose significantly * Will loosen Novolog PLAN FOR INPATIENT GLYCEMIC CONTROL: * Basal insulin * Lantus 25 units SC AM * NPH 0-10 units SC BID * Bolus insulin * NovoLog per scale Q 4 hrs * Goal Range: Low 110 mg/dL - High 140 mg/dL * Correction Factor: 10 mg/dL/unit * Nutritional / Prandial insulin per carb ratio of 1 unit per 3 grams CHO consumed PLAN FOR DISCHARGE: * HbA1c of 7.5% is likely adequate for patient based on age and comorbidities * Reasonable to continue home regimen at discharge provided patient's PO intake is near baseline
--- NOTE | 2021-08-02 14:35 | Critical Care Progress Note ---
Date of Service August 02, 2021 Assessment & Plan (1) COVID-19: (2) Respiratory failure with hypoxia: (3) CKD (chronic kidney disease) stage 3, GFR 30-59 ml/min: (4) Hx of heart artery stent: (5) Hemoptysis: Plan: Impression: 80-year-old female fully vaccinated for Covid admitted to the facility 07/15/2021 with acute on chronic hypoxemic respiratory failure. She was intubated 07/20/2021 and extubated 07/23/2021 but unfortunately then developed hemoptysis and was reintubated 07/25/2021. 24-hour events: All IV sedatives have been discontinued. The patient remains somewhat somnolent. She unfortunately has had an escalation in her oxygen requirement is now back up to 70%. Holding dialysis today with attempts at high-dose Lasix to see whether or not we can get fluid removed. Recommendations: Neurologic: We will wean clonazepam and Seroquel. off fentanyl and propofol. No indication for paralytics currently. Mental status needs to improve in order to consider a trial of possible extubation. Unclear if her markedly elevated BUN could be contributing to her encephalopathy. We will decrease steroids in the event this medication is contributing to catabolism and increase protein turnover. Pulmonary: Hypoxic respiratory failure secondary to Covid pneumonia. Patient extubated after initial trial mechanical ventilation, had respiratory distress post extubation with associated hemoptysis, BIPAP failed and re-intubated on 07/25/21 and then proned. Worsening of biilateral interstitial infiltrates and groundglass opacity seen with small bilateral effusions. Was placed on high- dose Solu-Medrol for possibility of diffuse alveolar hemorrhage however this was not identified on bronchoscopy and continuing to taper steroids. We will taper steroids to off. OLI screen negative. Anti-GBM negative. Stenotrophomonas is identified on bronchoscopy, see ID comments below. I think the patient's respiratory status will continue to improve with ultrafiltration and fluid removal. Her oxygen requirement today is worse and chest x-ray demonstrates increasing infiltrates in the right lower lung field. She is not appropriate for SBT or extubation. Cardiovascular: She has an extensive history of coronary artery disease. Echo with LVEF of 55 to 60%. Mild aortic regurgitation. Severe mitral annular calcification. Moderate mitral regurgitation. She remains off pressors. QTc only 407 on EKG showing atrial fibrillation. Currently on argatroban for possible heparin-induced thrombocytopenia Gastrointestinal: OGT. Dietary managing tube feeding with bowel regimen. Renal: Appreciate nephrology input. HD per nephrology. No evidence of pulmonary renal syndrome based on serologies. Ultrafiltration today. Infectious disease: Completed 8 days of Zosyn. Antibiotics discontinued 07/27. Blood cultures from the fifth of show no growth to date. Respiratory culture with pansensitive stenotrophomonas from 07/27. Day #4 ceftazidime. Discussed with pharmacy. This had been being dosed after dialysis however as the patient is not getting continued regularly scheduled dialysis, pharmacy will ensure that it is being dosed at an appropriate interval. Fever curve worse however white blood cell count is now normal. Other cultures are showing no growth to date. We will repeat cultures today. May consider changing out some of her lines if remains persistently febrile Hematologic: Hemoptysis resolved. Hemoglobin stable. Platelet counts have stabilized on argatroban. HIT serology currently pending. Venous thrombosis identified in the calf veins and the patient was initiated on argatroban. Continue to follow platelet counts in the hope that they recover. Endocrine: Hyperglycemia management per ICU pharmacist. VTE prophylaxis: On argatroban infusion. CODE STATUS: No compressions Disposition: Remain in the ICU. Prognosis is guarded. Attempted to update daughter by phone today however no answer. We will try again tomorrow. We will continue efforts to try and liberate her from the ventilator in hopes of having her participate in the discussion as well. I have personally spent 46 minutes of critical care time in the direct m anagement of this patient. This is a life/limb threatening event. This includes time spent evaluating patient, direct bedside care, chart review, placing orders, interpretation of diagnostic studies, discussion with consultants, patient, and family members, as well as other required patient management activities. This time is exclusive of all separately billable procedures, and teaching time and separate from and in addition to any other critical care service time. Admission and Anticipated Discharge Date Admission Date: July 15, 2021 Subjective intubated and sedated. Review of Systems Review of Systems: Unobtainable due to endotracheal tube Physical Exam Constitutional: + morbidly obese and + mechanically ventilated Eyes: + anicteric sclerae Neck: trachea midline Respiratory: symmetric chest movement Auscultation: + rhonchi Cardiovascular: Rate/Rhythm: regular rate Heart Sounds: normal S1 and normal S2 Extremities: + edema Gastrointestinal (Abdomen): Inspection/Auscultation: normal bowel sounds Percussion/Palpation: abdomen soft Musculoskeletal: Extremities: no cyanosis and no clubbing Skin: normal turgor; no lesions Neurologic: Motor/Sensory: no tremor and no asterixis Results & Data Results & Data ([facility]) Vital Signs (Past 12 Hours) Vital Signs Temp Pulse Resp Pulse Ox 08/02/21 13:15 38.9 C H 103 H 34 H 88 L 08/02/21 13:00 38.9 C H 95 H 33 H 89 L 08/02/21 12:45 38.9 C H 85 33 H 89 L 08/02/21 12:30 38.9 C H 98 H 31 H 90 08/02/21 12:15 38.9 C H 94 H 33 H 90 08/02/21 12:00 38.9 C H 95 H 33 H 90 08/02/21 11:45 38.8 C H 93 H 32 H 90 08/02/21 11:30 38.8 C H 113 H 30 H 89 L 08/02/21 11:15 38.8 C H 89 34 H 89 L 08/02/21 11:00 38.8 C H 105 H 35 H 89 L 08/02/21 10:45 38.8 C H 103 H 31 H 89 L 08/02/21 10:40 98 H 33 H 90 08/02/21 10:30 38.8 C H 103 H 34 H 90 08/02/21 10:15 38.8 C H 108 H 36 H 89 L 08/02/21 10:00 38.8 C H 107 H 31 H 90 08/02/21 09:45 38.7 C H 97 H 33 H 91 08/02/21 09:30 38.8 C H 110 H 33 H 91 08/02/21 09:15 38.7 C H 98 H 29 H 91 08/02/21 09:00 38.7 C H 106 H 31 H 91 08/02/21 08:45 38.7 C H 95 H 32 H 90 08/02/21 08:30 38.7 C H 105 H 34 H 90 08/02/21 08:15 38.7 C H 100 H 35 H 90 08/02/21 08:00 38.7 C H 102 H 36 H 90 08/02/21 07:45 38.7 C H 98 H 35 H 89 L 08/02/21 07:30 38.7 C H 97 H 36 H 90 08/02/21 07:15 38.6 C H 106 H 35 H 90 08/02/21 07:00 38.6 C H 102 H 37 H 90 08/02/21 06:16 95 H 33 H 90 08/02/21 05:15 38.4 C H 111 H 34 H 90 08/02/21 05:00 38.4 C H 106 H 33 H 90 08/02/21 04:45 38.4 C H 83 33 H 90 08/02/21 04:30 38.3 C H 95 H 32 H 90 08/02/21 04:15 38.3 C H 98 H 35 H 89 L 08/02/21 04:00 38.3 C H 98 H 31 H 90 08/02/21 03:45 38.3 C H 97 H 30 H 90 08/02/21 03:30 38.2 C H 91 H 30 H 90 08/02/21 03:15 38.2 C H 102 H 30 H 89 L 08/02/21 03:00 38.2 C H 93 H 30 H 89 L 08/02/21 02:45 38.1 C H 95 H 30 H 89 L 08/02/21 02:30 38.1 C H 104 H 29 H 89 L 08/02/21 02:28 101 H 30 H 89 L Critical Care Results & Data Vital Signs (Past 12 Hours) Vital Signs Temp Pulse Resp Pulse Ox 08/02/21 13:15 38.9 C H 103 H 34 H 88 L 08/02/21 13:00 38.9 C H 95 H 33 H 89 L 08/02/21 12:45 38.9 C H 85 33 H 89 L 08/02/21 12:30 38.9 C H 98 H 31 H 90 08/02/21 12:15 38.9 C H 94 H 33 H 90 08/02/21 12:00 38.9 C H 95 H 33 H 90 08/02/21 11:45 38.8 C H 93 H 32 H 90 08/02/21 11:30 38.8 C H 113 H 30 H 89 L 08/02/21 11:15 38.8 C H 89 34 H 89 L 08/02/21 11:00 38.8 C H 105 H 35 H 89 L 08/02/21 10:45 38.8 C H 103 H 31 H 89 L 08/02/21 10:40 98 H 33 H 90 08/02/21 10:30 38.8 C H 103 H 34 H 90 08/02/21 10:15 38.8 C H 108 H 36 H 89 L 08/02/21 10:00 38.8 C H 107 H 31 H 90 08/02/21 09:45 38.7 C H 97 H 33 H 91 08/02/21 09:30 38.8 C H 110 H 33 H 91 08/02/21 09:15 38.7 C H 98 H 29 H 91 08/02/21 09:00 38.7 C H 106 H 31 H 91 08/02/21 08:45 38.7 C H 95 H 32 H 90 08/02/21 08:30 38.7 C H 105 H 34 H 90 08/02/21 08:15 38.7 C H 100 H 35 H 90 08/02/21 08:00 38.7 C H 102 H 36 H 90 08/02/21 07:45 38.7 C H 98 H 35 H 89 L 08/02/21 07:30 38.7 C H 97 H 36 H 90 08/02/21 07:15 38.6 C H 106 H 35 H 90 08/02/21 07:00 38.6 C H 102 H 37 H 90 08/02/21 06:16 95 H 33 H 90 08/02/21 05:15 38.4 C H 111 H 34 H 90 08/02/21 05:00 38.4 C H 106 H 33 H 90 08/02/21 04:45 38.4 C H 83 33 H 90 08/02/21 04:30 38.3 C H 95 H 32 H 90 08/02/21 04:15 38.3 C H 98 H 35 H 89 L 08/02/21 04:00 38.3 C H 98 H 31 H 90 08/02/21 03:45 38.3 C H 97 H 30 H 90 08/02/21 03:30 38.2 C H 91 H 30 H 90 08/02/21 03:15 38.2 C H 102 H 30 H 89 L 08/02/21 03:00 38.2 C H 93 H 30 H 89 L 08/02/21 02:45 38.1 C H 95 H 30 H 89 L 08/02/21 02:30 38.1 C H 104 H 29 H 89 L Lab & Micro Results (Past 24 Hours) RBC 2.79 M/uL (4.2-5.4) L 08/02/21 WBC 9.42 K/uL (4.8-10.8) 08/02/21 Hgb 8.7 g/dL (12.0-16.0) L 08/02/21 Hct 26.4 % (37-47) L 08/02/21 MCV 94.6 fL (80-100) 08/02/21 MCH 31.2 pg (25-34) 08/02/21 MCHC 33.0 g/dL (32-36) 08/02/21 RDW Standard Deviation 54.5 fL (36.4-46.3) H 08/02/21 RDW Coefficient of Variation 16.7 % (11.5-14.5) H 08/02/21 Plt Count 59 K/uL (130-400) L 08/02/21 MPV 13.1 fL (7.4-10.4) H 08/02/21 Nucleated Red Blood Cells % (auto) 1.6 % 08/02/21 Nucleated RBC Absolute Count (auto) 0.15 K/uL (0-0) H 08/02/21 Na 134 mmol/L (136-145) L 08/02/21 K 4.9 mmol/L (3.5-5.1) 08/02/21 Cl 103 mmol/L (98-107) 08/02/21 CO2 20 mmol/L (21-32) L 08/02/21 Anion Gap 12.0 (3-11) H 08/02/21 BUN 121 mg/dl (7-18) H 08/02/21 Creatinine 2.29 mg/dl (0.6-1.2) H 08/02/21 Estimated GFR ( Amer) 22.8 ml/min 08/02/21 Estimated GFR (Non-Af Amer) 19.7 ml/min 08/02/21 BUN/Creatinine Ratio 52.8 (10-20) H 08/02/21 Glu 137 mg/dl (70-99) H 08/02/21 Ca 8.7 mg/dl (8.5-10.1) 08/02/21 Phosphorus Level 6.1 mg/dl (2.5-4.9) H 08/02/21 Mg 3.0 mg/dl (1.8-2.4) H 08/02/21 08:29 08/02/21 Calcium Level 8.7 mg/dl (8.5-10.1) 08/02/21 08:29 08/02/21 Edin Test NA 08/02/21 04:08 08/02/21 Microbiology 07/28/21 13:40 Fungal Smear - Final Bronch Wash, Trach Tree Fungal Culture - Preliminary No yeast or fungus isolated - Report 1, Additional Report to Follow. 07/28/21 13:40 Fungal Smear - Final Bronch Wash,Right Middle Lobe Fungal Culture - Preliminary No yeast or fungus isolated - Report 1, Additional Report to Follow. 07/28/21 13:40 Acid Fast Bacilli Smear - Final Bronch Wash,Right Middle Lobe Acid Fast Bacilli Culture - Preliminary No Acid-Fast Bacilli Isolated - Report 1, Additional Report to Follow. Diagnostic Findings (Past 24 Hours) Chest X-Ray 08/02/21 07:00 XR chest 1V portable CLINICAL HISTORY: Hypoxia TECHNIQUE: Single frontal radiograph of the chest was obtained. Comparison: Comparison is made to chest one view 08/01/2021 FINDINGS: Lines and tubes are stable. The cardiomediastinal silhouette is obscured. Interval worsening of diffuse airspace opacities. No evidence of pleural effusion or pneumothorax. IMPRESSION: Interval worsening of diffuse airspace opacities. ACT 112: Negative or not required by law. Electronically signed by: Claudio Neves M.D. 08/02/2021 10:08 AM I & O Totals 24 Hours 08/01/21 08/02/21 08/03/21 06:59 06:59 06:59 Intake Total 1523.363 / 1523.363 128.729 / 128.729 Output Total 700 / 700 800 / 800 100 / 100 Balance 823.363 / 823.363 -671.271 / -671.271 -100 / -100 Cumulative 07/15/21 11:42 thru 08/02/21 09:48 Intake Total 86786.400 Output Total 85463 Balance 5720.400 RT Ventilator Mngmt (Last Documented) Ventilator Ordered Settings Ventilator Support Mode Assist Control 08/02/21 10:40 Respiratory Rate 34 08/02/21 13:15 Ventilator Tidal Volume 380 08/02/21 10:40 Setting Minute Ventilation 12.6 08/02/21 10:40 Ventilator Positive Pressure 6 08/01/21 16:15 Support Setting Positive End Expiratory 8 08/02/21 10:40 Pressure Fraction of Inspired Oxygen 70 08/02/21 1 0:40 Peak Inspiratory Flow 47 07/27/21 19:07 Machine Comment placed back on full vent due to 08/01/21 19:39 patient tachypneic and spo2 low at 85% Ventilator - PT Measurements Respiratory Rate 34 Exhaled Tidal Volume 380 Minute Ventilation 12.6 Peak Inspiratory Airway 29 Pressure Plateau Pressure 27 Respiratory Cycle Inspiratory: 1:1.7 Expiratory Ratio Inspiratory Phase Time 0.65 End-Tidal CO2 25 Static Lung Compliance 20.00 Dynamic Lung Compliance 18.10 Normal Static Lung Compliance 45.00 Patient Measurements Comment fio2 increased due to spo2 86-87% on 60% Coding Level of Care Code Critical Care 1st 30-74 mins Diagnoses COVID-19 U07.1 Respiratory failure with hypoxia J96.01 Chronicity: acute CKD (chronic kidney disease) stage 3, GFR 30-59 ml/min N18.3 Hx of heart artery stent Z95.5 Hemoptysis R04.2 Time Spent (min) 46 (1) Respiratory failure with hypoxia Chronicity: acute Qualified Code(s): J96.01 - Acute respiratory failure with hypoxia
[2021-08-02] MEDS: clonazePAM 0.25 MG TAB PO SCH (20:49)
[2021-08-02 22:08] LABS: Source BW RIGHT MIDDLE LOBE
[2021-08-03] MEDS: TUBE FEEDING WATER FLUSH OG SCH ×6 (00:25→20:24)
[2021-08-03] MEDS: INSULIN ASPART 100 UNITS/ML VIAL SC SCH ×6 (00:25→20:24)
[2021-08-03] MEDS ORDERED: fentaNYL citrate 100 MCG/2 ML VIAL IV STA ×2 (00:33→03:51)
[2021-08-03 03:44] LABS: iSTAT Arterial Blood Gas HCO3 20 meg/L (19-24); iSTAT Arterial Blood Gas pCO2 33 mmHg (35-46); iSTAT Arterial Blood Gas pO2 77 mmHg (80-95); iSTAT Carbon Dioxide 21 mmol/L (24-31); iSTAT FiO2 70 %; iSTAT Site Art Line
[2021-08-03] MEDS: PANTOprazole 40 MG in SYRINGE 0 ML IV SCH (07:39)
[2021-08-03] MEDS: POLYETHYLENE (MIRALAX) 17 GM PACK PO SCH (07:39)
[2021-08-03] MEDS: clonazePAM 0.25 MG TAB PO SCH (07:39)
[2021-08-03] MEDS: FUROSEMIDE 40 MG/4 ML VIAL IV SCH ×3 (07:43→20:24)
[2021-08-03] MEDS: LACTULOSE SYRUP 20 GM/30 ML UDC PO SCH (07:44)
[2021-08-03] MEDS: ATORVASTATIN 40 MG TAB PO SCH (07:44)
[2021-08-03] MEDS: SENNOSIDES 8.8 MG/5 ML UDC PO SCH ×2 (07:45→20:25)
[2021-08-03] MEDS: GABAPENTIN 250 MG/5 ML 470 ML BTL PO SCH (07:46)
[2021-08-03 07:59] LABS: Mean Corpuscular Hgb Conc 32.7 g/dL (32-36); Nucleated RBC # (auto) 0.06 K/uL (0-0); Nucleated RBC % (auto) 0.6 %
[2021-08-03 08:11] LABS: Hematocrit (blood only) 25.7 % (37-47); Hemoglobin 8.4 g/dL (12.0-16.0); Mean Corpuscular Hemoglobin 31.5 pg (25-34); Mean Corpuscular Volume 96.3 fL (80-100); RDW Coefficient of Variation 16.9 % (11.5-14.5); RDW Standard Deviation 56.5 fL (36.4-46.3); Red Blood Count 2.67 M/uL (4.2-5.4); White Blood Count 9.61 K/uL (4.8-10.8)
[2021-08-03 08:12] LABS: Platelet Count 53 K/uL (130-400)
[2021-08-03 08:15] LABS: Platelet Estimate Decreased (Normal)
[2021-08-03 08:30] LABS: Potassium 5.1 mmol/L (3.5-5.1)
[2021-08-03 08:31] LABS: Albumin Level 1.7 gm/dl (3.4-5.0); BUN Creatinine Ratio 61.1 (10-20); Calcium 8.3 mg/dl (8.5-10.1); Creatinine Clr Calc Pharmacy 21.4 ml/min; Est GFR (African American) 21.5 ml/min; Est GFR (Non-African American) 18.6 ml/min
--- NOTE | 2021-08-03 08:33 | XRay Report ---
XR chest 1V portable HISTORY: Respiratory failure. Follow-up. COMPARISON: Chest 08/02/2021. FINDINGS: No pneumothorax. Trace right pleural effusion, unchanged. Perihilar bilateral airspace opac ities have slightly improved. The heart remains mildly enlarged. Left-sided dual-chamber pacemaker. N asogastric tube terminates in the stomach. Right jugular central venous catheter terminates at the hawkins perior cavoatrial junction. Left jugular dual-lumen catheter extends cephalad likely within the azygo s vein or distal brachiocephalic vein. This is unchanged. The endotracheal tube terminates 1.8 cm fro m the ashlee. IMPRESSION: 1. Slight improvement in the perihilar airspace opacities consistent with a pneumonia. 2. Lines and tubes remain unchanged in position as described above. Specifically, the endotracheal tu be terminates 1.8 cm from the ashlee. ACT 112: Negative or not required by law. Electronically signed by: Stevo Alvarez M.D. 08/03/2021 8:32 AM
[2021-08-03 08:34] LABS: Bilirubin Direct 0.4 mg/dl (0-0.2); Bilirubin,Total 0.7 mg/dl (0.2-1); Phosphorus 6.6 mg/dl (2.5-4.9); Total Protein 5.8 gm/dl (6.4-8.2)
[2021-08-03] MEDS ORDERED: INSULIN GLARGINE SOLOSTAR 100 UNITS/ML 3 ML PEN SC SCH (09:00)
--- NOTE | 2021-08-03 09:29 | Nephrology Progress Note ---
Date of Service August 03, 2021 Assessment & Plan (1) ASPEN (acute kidney injury): Plan: * Admitted w/ COVID pneumonia. ASPEN due to ATN. Vasculitis evaluation was negative * L IJ THC placed and 1st HD completed 07/27/21 * Nonoliguric. Net 1L UO yesterday * Continue Furosemide 80mg IV q8 hours to encourage diuresis * Cr stable at 2.4 but patient is becoming more azotemic * Will provide 2 hours HD today to correct azotemia, no UF * Monitor UO, PRP (2) CKD (chronic kidney disease) stage 3, GFR 30-59 ml/min: Plan: * Stage III CKD w/ baseline Cr ~1.5 mg/dL due to DKD (3) COVID-19: Plan: * Methylprednisolone has been tapered to off (4) Respiratory failure with hypoxia: Plan: * COVID pneumonia * CXR film this am shows mild improvement * FiO2 has decreased to 60%, SaO2 is acceptable at 91% * Continue Furosemide 80 mg IV TID to encourage diuresis (5) Thrombocytopenia: Plan: * Platelets relatively stable. HIT ab pending Admission and Anticipated Discharge Date Admission Date: July 15, 2021 Subjective Sedated, mechanically ventilated. SaO2 91% on FiO2 60%. Responding to IV Furosemide therapy. Net 1 L volume negative last 24 hours Review of Systems Review of Systems: Unobtainable due to endotracheal tube Physical Exam Constitutional: + ill appearing Eyes: PERRL, conjunctivae normal, anicteric sclerae Neck: trachea midline, no thyromegaly Cardiovascular: Rate/Rhythm: regular rate and regular rhythm Extremities: + edema (1+ dependent pitting edema) Gastrointestinal (Abdomen): Percussion/Palpation: abdomen soft (hypoactive bowel sounds) Skin: no rashes, warm and dry Results & Data ([facility]) Vital Signs (Past 12 Hours) Vital Signs Pulse Resp Pulse Ox 08/03/21 07:05 106 H 34 H 91 08/03/21 02:33 101 H 37 H 92 08/02/21 23:09 109 H 37 H 93 Laboratory Results Laboratory Tests 08/03/21 08/03/21 07:42 07:42 WBC 9.61 Hgb 8.4 L Hct 25.7 L Plt Count 53 L Sodium 134 L Potassium 5.1 Chloride 101 Carbon Dioxide 21 BUN 147 H Creatinine 2.40 H Glucose 242 H PG Care Time/CCT Total # of Minutes Spent Total Time Spent with Patient: Total time spent is greater than 50% in coordination of care (as documented) at patient's floor/unit and/or counseling patient: Coding Level of Care Code 49108 Subseq Hosp Care Lvl 3 Diagnoses ASPEN (acute kidney injury) N17.9 CKD (chronic kidney disease) stage 3, GFR 30-59 ml/min N18.3 COVID-19 U07.1 Respiratory failure with hypoxia J96.01 Chronicity: acute Thrombocytopenia D69.6 (1) Respiratory failure with hypoxia Chronicity: acute Qualified Code(s): J96.01 - Acute respiratory failure with hypoxia
[2021-08-03] MEDS ORDERED: SODIUM CHLORIDE 0.9% 1000ML 1,000 ML IV PRN (09:34)
[2021-08-03 10:26] LABS: Partial Thromboplastin Ratio 2.6
[2021-08-03 10:32] LABS: Partial Thromboplastin Time 67.1 Seconds (21.0-31.0)
--- NOTE | 2021-08-03 10:58 | Critical Care Progress Note ---
Date of Service August 03, 2021 Assessment & Plan (1) COVID-19: (2) Thrombocytopenia: (3) Hemoptysis: (4) Respiratory failure with hypoxia: (5) CKD (chronic kidney disease) stage 3, GFR 30-59 ml/min: (6) ASPEN (acute kidney injury): (7) Morbid obesity: (8) Diabetes mellitus type 2: Plan: (1) COVID-19: (2) Respiratory failure with hypoxia: (3) CKD (chronic kidney disease) stage 3, GFR 30-59 ml/min: (4) Hx of heart artery stent: (5) Hemoptysis: Plan: Impression: 80-year-old female fully vaccinated for COVID admitted to the facility 07/15/2021 with acute on chronic hypoxemic respiratory failure. She was intubated 07/20/2021 and extubated 07/23/2021 but unfortunately then developed hemoptysis and was reintubated 07/25/2021. 24-hour events:All IV sedatives have been discontinued. The patient remains somnolent. She unfortunately has had an escalation in her oxygen requirement is now back up to 60-70%. Dialysis today with attempts at high-dose Lasix to see whether or not we can get fluid removed. Continue to allow time to clear her 2 weeks of sedatives/narcotics Recommendations: Neurologic: We will wean clonazepam and Seroquel. off fentanyl and propofol- received one bolus dose yesterday evening for HTN. No indication for paralytics currently. Mental status needs to improve in order to consider a trial of possible extubation- currently unable to perform SBT. Decrease renal clearance and her elevated BUN could be contributing to her encephalopathy. We will decrease steroids in the event this medication is contributing to catabolism and increase protein turnover. Ammonia level in the 30s. Pulmonary: Hypoxic respiratory failure secondary to Covid pneumonia. Patient extubated after initial trial mechanical ventilation, had respiratory distress post extubation with associated hemoptysis, BIPAP failed and re-intubated on 07/25/21 and then proned. Worsening of bilateral interstitial infiltrates and groundglass opacity seen with small bilateral effusions. Was placed on high- dose Solu-Medrol for possibility of diffuse alveolar hemorrhage however this was not identified on bronchoscopy and continuing to taper steroids. We will taper steroids to off. OLI screen negative. Anti-GBM negative. Stenotrophomonas is identified on bronchoscopy, see ID comments below. Continue to follow pulmonary mechanics and oxygenation with ultrafiltration and fluid removal- she has made 600 ml urine today and dialysis was without fluid removal. Her oxygen requirement today is stable at 60% and chest x-ray demonstrates increasing infiltrates with slight improvement. She is not appropriate for SBT or extubation. Cardiovascular: She has an extensive history of coronary artery disease. Echo with LVEF of 55 to 60%. Mild aortic regurgitation. Severe mitral annular calcification. Moderate mitral regurgitation. She remains off pressors. Remains in Afib . Currently on argatroban for possible heparin-induced thrombocytopenia Gastrointestinal: OGT. Dietary managing tube feeding with bowel regimen. Renal: Appreciate nephrology input. HD per nephrology. No evidence of pulmonary renal syndrome based on serologies. Ultrafiltration today. Infectious disease: Completed 8 days of Zosyn. Antibiotics discontinued 07/27. Blood cultures from the fifth of show no growth to date. Respiratory culture with pansensitive stenotrophomonas from 07/27. Day #4/ ceftazidime. Discussed with pharmacy. This had been being dosed after dialysis however as the patient is not getting continued regularly scheduled dialysis, pharmacy will ensure that it is being dosed at an appropriate interval. Fever curve worse however white blood cell count is now normal. Other cultures are showing no growth to date. We will repeat cultures today. May consider changing out some of her lines if remains persistently febrile Hematologic: Hemoptysis resolved. Hemoglobin stable. Platelet counts have stabilized on argatroban. HIT serology with PF4 antibody 0.161 which is below the 0.4 range. Venous thrombosis identified in the calf veins and the patient was initiated on argatroban. She is therapuetic on the Argatroban so will continue. Thrombocytopenia multifactorial with infection, consumption, dialysis. Endocrine: Hyperglycemia management per ICU pharmacist. VTE prophylaxis: On argatroban infusion.- Continue CODE STATUS: No compressions Lines: ETT, Dialysis line, CVL, Winifred, OGT, Bal- continue use of all these lines. Disposition: Remain in the ICU. Prognosis is guarded. Attempted to update daughter by phone today however no answer. We will try again tomorrow. We will continue efforts to try and liberate her from the ventilator in hopes of having her participate in the discussion as well. I have personally spent 45 minutes of critical care time in the direct management of this patient. This is a life/limb threatening event. This includes time spent evaluating patient, direct bedside care, chart review, placing orders, interpretation of diagnostic studies, discussion with consultants, patient, and family members, as well as other required patient management activities. This time is exclusive of all separately billable procedures, and teaching time and separate from and in addition to any other critical care service time. Admission and Anticipated Discharge Date Admission Date: July 15, 2021 Subjective Patient discussed on multidisciplinary rounds and rounded on in the [facility] ICU. Patient remains intubated for the second time- at ICU day #19 and Vent #9. Patient sedation has been off for ~24 hours, will continue to hold this secondary to patient neruological exam. She remains on high levels of ventilator support to maintain her oxygenation. She will be receiving dialysis today. She continues ABX coverage for Stenotrophomonas from her BAL sample. Her blood cultures remain with NGTD. Hopeful she will continue to clear her sedatives and narcotics with and expected delay secondary to her renal function. If no improvement with time and clearing of some of her uremia, will need imaging of her brain to rule out any hypoxic injury. Continue with diuretics today and full supportive care. Review of Systems Review of Systems: Unable to perform- she is intubated, sedated, and paralyzed. Physical Exam Physical Exam: GENERAL : Continues on mechanical ventilation without sedation. EYES: No icterus, gaze conjugate. Pupils are equal and round sluggish NOSE: No evidence of epistaxis MOUTH: No lesions or candidiasis NECK: Supple LUNGS: Continues with decreased breath sounds. Off of neuromuscular blockade. scattered rhonchi throughout HEART: Regular, rate controlled ABDOMEN: Soft, NT, ND, BS Present EXTREMITIES: No LE edema, pedal pulses intact NEURO: No sedation, mechanical ventilatio, + cough, no withdraw to pain, pupils sluggish but reactive. Results & Data Results & Data ([facility]) Vital Signs (Past 12 Hours) Vital Signs Temp Pulse Pulse Resp BP Pulse Ox 08/03/21 10:45 93 H 148/37 H 08/03/21 10:31 38.6 C H 90 08/03/21 07:05 106 H 34 H 91 08/03/21 02:33 101 H 37 H 92 08/02/21 23:09 109 H 37 H 93 Laboratory Results Abnormal lab results 08/02/21 08/02/21 08/03/21 Range/Units 20:40 23:54 03:31 RBC (4.2-5.4) M/uL Hgb (12.0-16.0) g/dL Hct (37-47) % RDW Std Deviation (36.4-46.3) fL RDW Coeff of Favian (11.5-14.5) % Plt Count (130-400) K/uL Absolute Nucleated RBC (0-0) K/uL Platelet Estimate (Normal) APTT (21.0-31.0) Seconds POC pCO2 33 L (35-46) mmHg POC pO2 77 L (80-95) mmHg POC Total CO2 21 L (24-31) mmol/L Sodium (136-145) mmol/L Anion Gap (3-11) BUN (7-18) mg/dl Creatinine (0.6-1.2) mg/dl BUN/Creatinine Ratio (10-20) Glucose (70-99) mg/dl POC Glucose 142 H 173 H (70-99) mg/dl Calcium (8.5-10.1) mg/dl Phosphorus (2.5-4.9) mg/dl Magnesium (1.8-2.4) mg/dl Direct Bilirubin (0-0.2) mg/dl AST (15-37) U/L Ammonia (11-32) umol/L Total Protein (6.4-8.2) gm/dl Albumin (3.4-5.0) gm/dl 08/03/21 08/03/21 08/03/21 Range/Units 04:15 07:41 07:42 RBC 2.67 L (4.2-5.4) M/uL Hgb 8.4 L (12.0-16.0) g/dL Hct 25.7 L (37-47) % RDW Std Deviation 56.5 H (36.4-46.3) fL RDW Coeff of Favian 16.9 H (11.5-14.5) % Plt Count 53 L (130-400) K/uL Absolute Nucleated RBC 0.06 H (0-0) K/uL Platelet Estimate Decreased L (Normal) APTT (21.0-31.0) Seconds POC pCO2 (35-46) mmHg POC pO2 (80-95) mmHg POC Total CO2 (24-31) mmol/L Sodium (136-145) mmol/L Anion Gap (3-11) BUN (7-18) mg/dl Creatinine (0.6-1.2) mg/dl BUN/Creatinine Ratio (10-20) Glucose (70-99) mg/dl POC Glucose 180 H 242 H (70-99) mg/dl Calcium (8.5-10.1) mg/dl Phosphorus (2.5-4.9) mg/dl Magnesium (1.8-2.4) mg/dl Direct Bilirubin (0-0.2) mg/dl AST (15-37) U/L Ammonia (11-32) umol/L Total Protein (6.4-8.2) gm/dl Albumin (3.4-5.0) gm/dl 08/03/21 08/03/21 08/03/21 Range/Units 07:42 09:45 14:12 RBC (4.2-5.4) M/uL Hgb (12.0-16.0) g/dL Hct (37-47) % RDW Std Deviation (36.4-46.3) fL RDW Coeff of Favian (11.5-14.5) % Plt Count (130-400) K/uL Absolute Nucleated RBC (0-0) K/uL Platelet Estimate (Normal) APTT 67.1 H* (21.0-31.0) Seconds POC pCO2 (35-46) mmHg POC pO2 (80-95) mmHg POC Total CO2 (24-31) mmol/L Sodium 134 L (136-145) mmol/L Anion Gap 12.0 H (3-11) BUN 147 H (7-18) mg/dl Creatinine 2.40 H (0.6-1.2) mg/dl BUN/Creatinine Ratio 61.1 H (10-20) Glucose 242 H (70-99) mg/dl POC Glucose 249 H (70-99) mg/dl Calcium 8.3 L (8.5-10.1) mg/dl Phosphorus 6.6 H (2.5-4.9) mg/dl Magnesium 3.0 H (1.8-2.4) mg/dl Direct Bilirubin 0.4 H (0-0.2) mg/dl AST 91 H (15-37) U/L Ammonia (11-32) umol/L Total Protein 5.8 L (6.4-8.2) gm/dl Albumin 1.7 L (3.4-5.0) gm/dl 08/03/21 08/03/21 08/03/21 Range/Units 15:23 16:26 16:37 RBC (4.2-5.4) M/uL Hgb (12.0-16.0) g/dL Hct (37-47) % RDW Std Deviation (36.4-46.3) fL RDW Coeff of Favian (11.5-14.5) % Plt Count (130-400) K/uL Absolute Nucleated RBC (0-0) K/uL Platelet Estimate (Normal) APTT (21.0-31.0) Seconds POC pCO2 (35-46) mmHg POC pO2 (80-95) mmHg POC Total CO2 (24-31) mmol/L Sodium (136-145) mmol/L Anion Gap (3-11) BUN (7-18) mg/dl Creatinine (0.6-1.2) mg/dl BUN/Creatinine Ratio (10-20) Glucose (70-99) mg/dl POC Glucose 209 H 197 H (70-99) mg/dl Calcium (8.5-10.1) mg/dl Phosphorus (2.5-4.9) mg/dl Magnesium (1.8-2.4) mg/dl Direct Bilirubin (0-0.2) mg/dl AST (15-37) U/L Ammonia 38.7 H (11-32) umol/L Total Protein (6.4-8.2) gm/dl Albumin (3.4-5.0) gm/dl Diagnostic Findings XR chest 1V portable HISTORY: Respiratory failure. Follow-up. COMPARISON: Chest 08/02/2021. FINDINGS: No pneumothorax. Trace right pleural effusion, unchanged. Perihilar bilateral airspace opacities have slightly improved. The heart remains mildly enlarged. Left-sided dual-chamber pacemaker. Nasogastric tube terminates in the stomach. Right jugular central venous catheter terminates at the superior cavoatrial junction. Left jugular dual-lumen catheter extends cephalad likely within the azygos vein or distal brachiocephalic vein. This is unchanged. The endotracheal tube terminates 1.8 cm from the ashlee. IMPRESSION: 1. Slight improvement in the perihilar airspace opacities consistent with a pneumonia. 2. Lines and tubes remain unchanged in position as described above. Specifically, the endotracheal tube terminates 1.8 cm from the ashlee. Coding Level of Care Code Critical Care 1st 30-74 mins Diagnoses COVID-19 U07.1 Thrombocytopenia D69.6 Hemoptysis R04.2 Respiratory failure with hypoxia J96.01 Chronicity: acute CKD (chronic kidney disease) stage 3, GFR 30-59 ml/min N18.3 ASPEN (acute kidney injury) N17.9 Morbid obesity E66.01 Diabetes mellitus type 2 E11.9 (1) Respiratory failure with hypoxia Chronicity: acute Qualified Code(s): J96.01 - Acute respiratory failure with hypoxia
--- NOTE | 2021-08-03 14:55 | Pharmacy Report ---
Pharmacy Glycemic Short Note 2 - Date of Service August 03, 2021 - Glycemic Short BSG Results (Last 24 hours): 08/02/21 08/02/21 08/02/21 16:45 20:40 23:54 Glucose POC Glucose 148 H 142 H 173 H 08/03/21 08/03/21 08/03/21 04:15 07:41 07:42 Glucose 242 H POC Glucose 180 H 242 H 08/03/21 14:12 Glucose POC Glucose 249 H OUTPATIENT ANTIDIABETIC REGIMEN: * Lantus 43 units SC AM + 26 units SC PM * Novolog 10 units w/ breakfast + 18 units w/ lunch + 18 units w/ dinner * HbA1c = 7.5% 07/16/21 ASSESSMENT: 08/03: * BSGs controlled yesterday. Fasting BSG elevated this AM. * SoluMedrol tapered off today. NPH 10 units BID given yesterday; held today given steroids D/C'd. Lantus increased to 30 units this morning. TF remain @ goal. iHD planned for today. * BSGs have increased throughout the day today. Given plan for dialysis and increased insulin sensitivity in the setting of steroid discontinuation, will plan for an additional 1X dose of NPH (10 units) this afternoon if BSG remains elevated @ 16oo check. * No adjustments to Novolog today; CF/CR 05/24 08/02: * Uncontrolled BSGs yesterday: [id number] mg/dL * Patient was asymptomatic with hypoglycemia around midnight. Did require full amp of D50 to improve BSG to 111 mg/dL. * Patient received 30 units Lantus + 30 units NPH + 72 units Novolog (KFV=770 units) * Solumedrol was decreased to 30 mg IV every 12 hours yesterday * Fasting BSG was 133 mg/dL this AM - controlled * Reduced Lantus and NPH dosing this morning given decrease in steroids and low BSG 08/01: * BSGs were acceptable yesterday. Did have a high of 215 mg/dL in the evening. * BSG this AM up to 254 mg/dL. Novasource renal running at goal and continues on Solumedrol 30 mg IV every 6 hours. * Increased basal to help cover tube feeds and increased NPH to help cover steroids. 07/31: * BSG's responded to reduction in basal and bolus insulin yesterday in response to steroid taper and lower BSG's preceeding. Goal BSG 140-180 mg/dL for ICU status patient * BSG's did gradually increase and are now persistently slightly above goal range, ranging 182-213 yesterday PM to this AM. Will tighten CHO ratio slightly as increase in Novasource renal rate also likely contributing PLAN FOR INPATIENT GLYCEMIC CONTROL: * Basal insulin * Lantus 30 units SC AM * Bolus insulin * NovoLog per scale Q 4 hrs * Goal Range: Low 110 mg/dL - High 140 mg/dL * Correction Factor: 10 mg/dL/unit * Nutritional / Prandial insulin per carb ratio of 1 unit per 3 grams CHO consumed PLAN FOR DISCHARGE: * HbA1c of 7.5% is likely adequate for patient based on age and comorbidities * Reasonable to continue home regimen at discharge provided patient's PO intake is near baseline
[2021-08-03] MEDS ORDERED: ARGATROBAN CONSULT ACTIVE PRN (15:28)
[2021-08-03] MEDS ORDERED: PHARMACY ARGATROBAN RATE CHANGE ONE (15:30)
[2021-08-03] MEDS ORDERED: INSULIN HUMAN NPH SC ONE (16:00)
--- NOTE | 2021-08-03 17:10 | Hospitalist Progress Note ---
Date of Service August 03, 2021 Assessment & Plan (1) Respiratory failure with hypoxia: (2) COVID-19: Plan: Patient vaccinated fully against Covid, last dose November 2020 Plan: per Dr. Nunez's notes with addendum: Acute on chronic hypoxic respiratory failure ARDS secondary to COVID-19 Vaccinated against Covid, last dose November 2020 -CXR:Extensive bilateral airspace opacities which favor an infectious process such as viral pneumonia. Radiographic follow-up to ensure resolution is recommended. Not a candidate for remdesivir Completed dexamethasone course Patient had respiratory distress post extubation, developed hemoptysis CTA showed extensive groundglass opacities are present throughout both lungs characteristic of a viral type pneumonitis and Covid 19 pneumonia. Reintubated on 07/25/21 Had bronchoscopy with bronchoalveolar lavage which showed no evidence of alveolar hemorrhage Neuromuscular blockade discontinued Bronchial wash 07/28/2021: Stenotrophomonas Ceftazidime ordered Remains febrile Blood cultures negative Urine culture negative Status post Solu-Medrol 30 mg IV Patient off sedation but not waking up at Further mechanical ventilator management per ICU ASPEN on CKD III Baseline 1.5-1.7; presenting creatinine 1.93 ATN versus acute glomerulonephritis, concern for vasculitis Had dialysis catheter placement on 07/27/21 Continue dialysis as per nephrology Also on Lasix 80 mg IV twice daily Thrombocytopenia Platelet 53K HIT antibodies pending Argatroban started No signs of bleeding Monitor Atrial Fibrillation Rate controlled Monitor CAD Continue statin Aspirin held DM II SSI, glycemic pharmacy DVT Px: Heparin SQ--Held due to Hemoptysis CODE STATUS Full code for now Admission and Anticipated Discharge Date Admission Date: July 15, 2021 Subjective Follow-up for acute hypoxic respiratory failure, COVID-19 pneumonia, etc. 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 Review of Systems: all noted and negative except for above Physical Exam Physical Exam: General-off sedation, still not waking up Not in distress, no sensory muscle use Eyes- anicteric Neck- no JVD Lungs-positive crackles bilaterally, no wheezing Heart- normal rate, regular rhythm; no murmurs Abdomen- normal bowel sounds, nondistended, soft, nontender Extremities-positive mild edema generalized Neuro-not responding Skin- warm & dry Results & Data Results & Data ([facility]) Vital Signs (Past 12 Hours) Vital Signs Temp Pulse Pulse Resp BP BP Pulse Ox 08/03/21 15:38 89 08/03/21 13:58 103 H 31 H 90 08/03/21 13:00 38.2 C H 94 H 149/44 H 08/03/21 12:45 99 H 27 H 89 L 08/03/21 12:30 92 H 26 H 89 L 08/03/21 12:20 96 H 128/39 L 08/03/21 12:15 101 H 27 H 89 L 08/03/21 12:00 100 H 27 H 129/37 L 89 L 08/03/21 11:45 90 27 H 90 08/03/21 11:40 84 135/36 L 08/03/21 11:30 85 30 H 90 08/03/21 11:20 92 H 148/39 H 08/03/21 11:15 89 27 H 89 L 08/03/21 11:00 94 H 30 H 135/36 L 90 08/03/21 10:45 92 H 32 H 148/37 H 93 08/03/21 10:31 38.6 C H 90 08/03/21 10:30 97 H 33 H 91 08/03/21 10:15 88 29 H 91 08/03/21 10:00 95 H 37 H 91 08/03/21 09:45 88 35 H 90 08/03/21 09:30 87 35 H 91 08/03/21 09:15 95 H 36 H 90 08/03/21 09:00 96 H 36 H 89 L 08/03/21 08:45 93 H 35 H 90 08/03/21 08:30 94 H 34 H 90 08/03/21 08:15 98 H 30 H 91 08/03/21 08:00 89 37 H 90 08/03/21 07:45 99 H 33 H 91 08/03/21 07:30 99 H 34 H 91 08/03/21 07:05 106 H 34 H 91 all noted and reviewed including below (1) Respiratory failure with hypoxia Chronicity: acute Qualified Code(s): J96.01 - Acute respiratory failure with hypoxia
[2021-08-04] MEDS: INSULIN ASPART 100 UNITS/ML VIAL SC SCH ×6 (00:25→20:25)
[2021-08-04] MEDS: TUBE FEEDING WATER FLUSH OG SCH ×6 (00:27→20:26)
[2021-08-04 04:21] LABS: iSTAT Arterial Blood Gas HCO3 20 meg/L (19-24); iSTAT Arterial Blood Gas pCO2 31 mmHg (35-46); iSTAT Arterial Blood Gas pH 7.43 (7.35-7.45); iSTAT Arterial Blood Gas pO2 77 mmHg (80-95); iSTAT Carbon Dioxide 21 mmol/L (24-31); iSTAT FiO2 60 %; iSTAT Site Art Line
[2021-08-04 06:03] LABS: Mean Corpuscular Hgb Conc 32.8 g/dL (32-36)
[2021-08-04 06:35] LABS: Magnesium 2.8 mg/dl (1.8-2.4)
[2021-08-04 06:39] LABS: BUN Creatinine Ratio 66.6 (10-20); Calcium 8.6 mg/dl (8.5-10.1); Creatinine Clr Calc Pharmacy 27.4 ml/min; Est GFR (African American) 29.1 ml/min; Est GFR (Non-African American) 25.1 ml/min; Phosphorus 5.5 mg/dl (2.5-4.9)
[2021-08-04 06:44] LABS: Hemoglobin 8.2 g/dL (12.0-16.0); Mean Corpuscular Hemoglobin 31.5 pg (25-34); Mean Corpuscular Volume 96.2 fL (80-100); RDW Standard Deviation 57.4 fL (36.4-46.3); White Blood Count 8.79 K/uL (4.8-10.8)
[2021-08-04 06:45] LABS: Platelet Count 49 K/uL (130-400)
[2021-08-04 06:46] LABS: Platelet Estimate Decreased (Normal)
--- NOTE | 2021-08-04 07:17 | CT Scan Report ---
CT head/brain wo con CLINICAL HISTORY: not waking, no sedation many days, +argatroban gtt Technique: Contiguous axial CT images of the head were acquired from the base of the skull to the melecio wing without intravenous contrast administration. Images were viewed in brain, subdural and bone windo ws. Automated dose lowering techniques and/or adjustment according to patient size were utilized for this exam. Comparison: Comparison is made to CT head 04/07/2017 Findings: Areas of decreased attenuation are present in the periventricular and subcortical white matter bilate rally consistent with small vessel ischemic disease. Generalized cerebral atrophy with commensurate e nlargement of the ventricles, sulci, and cisterns is also present. There is no acute intracranial hem orrhage or evidence of acute territorial infarction. No shift of the midline structures, mass effect, or extra-axial abnormalities are shown. Atherosclerotic calcifications are present in the intracran ial segments of the internal carotid arteries. Mucosal thickening is seen in the bilateral maxillary sinuses. The orbits appear normal. There are n o acute fractures of the calvaria or scalp swelling. Impression: No acute intracranial hemorrhage, no evidence of acute territorial infarction or other acute intracra nial disease process. ACT 112: Negative or not required by law. Electronically signed by: Claudio Neves M.D. 08/04/2021 7:16 AM
[2021-08-04] MEDS ORDERED: INSULIN GLARGINE SOLOSTAR 100 UNITS/ML 3 ML PEN SC SCH ×2 (09:00→21:00)
--- NOTE | 2021-08-04 09:09 | XRay Report ---
XR chest 1V portable CLINICAL HISTORY: resp failure TECHNIQUE: Single frontal radiograph of the chest was obtained. Comparison: Comparison is made to chest one view 08/03/2021 FINDINGS: Lines and tubes are stable. The cardiomediastinal silhouette is normal. Multifocal airspace opacities are seen bilaterally. These are essentially unchanged from prior exam. No evidence of pleural effusi on or pneumothorax. IMPRESSION: Multifocal airspace opacities are seen bilaterally, unchanged from prior exam. ACT 112: Negative or not required by law. Electronically signed by: Claudio Neves M.D. 08/04/2021 9:07 AM
[2021-08-04] MEDS: FUROSEMIDE 40 MG/4 ML VIAL IV SCH ×3 (09:17→20:27)
[2021-08-04] MEDS: PANTOprazole 40 MG in SYRINGE 0 ML IV SCH (09:17)
[2021-08-04] MEDS: ATORVASTATIN 40 MG TAB PO SCH (09:18)
[2021-08-04] MEDS: POLYETHYLENE (MIRALAX) 17 GM PACK PO SCH (09:18)
[2021-08-04] MEDS: LACTULOSE SYRUP 20 GM/30 ML UDC PO SCH (09:18)
[2021-08-04] MEDS: GABAPENTIN 250 MG/5 ML 470 ML BTL PO SCH (09:18)
[2021-08-04] MEDS: SENNOSIDES 8.8 MG/5 ML UDC PO SCH ×2 (09:18→20:27)
--- NOTE | 2021-08-04 09:56 | Nephrology Progress Note ---
Date of Service August 04, 2021 Assessment & Plan (1) ASPEN (acute kidney injury): Plan: * Admitted w/ COVID pneumonia. ASPEN due to ATN. Vasculitis evaluation was negative * L IJ THC placed and 1st HD completed 07/27/21 * Nonoliguric. Net 1150 cc UO yesterday * Remains 3 L volume + since admission * Continue Furosemide 80mg IV q8 hours to encourage diuresis * Hold HD today. Monitor UO, PRP (2) CKD (chronic kidney disease) stage 3, GFR 30-59 ml/min: Plan: * Stage III CKD w/ baseline Cr ~1.5 mg/dL due to DKD (3) COVID-19: Plan: * Methylprednisolone has been tapered to off (4) Respiratory failure with hypoxia: Plan: * COVID pneumonia * CXR film this am unchanged from yesterday * FiO2 has decreased to 50%, SaO2 is acceptable at 90% * Continue Furosemide 80 mg IV TID to encourage diuresis (5) Thrombocytopenia: Plan: * Platelets relatively stable. HIT ab pending Admission and Anticipated Discharge Date Admission Date: July 15, 2021 Subjective Mechanically ventilated Review of Systems Review of Systems: Unobtainable due to endotracheal tube Physical Exam Constitutional: + ill appearing Eyes: PERRL, conjunctivae normal, anicteric sclerae Neck: trachea midline, no thyromegaly Cardiovascular: Rate/Rhythm: regular rate and regular rhythm Extremities: + edema (1+ dependent pitting edema) Gastrointestinal (Abdomen): Percussion/Palpation: abdomen soft (hypoactive bowel sounds) Skin: no rashes, warm and dry Results & Data ([facility]) Vital Signs (Past 12 Hours) Vital Signs Temp Pulse Resp Pulse Ox 08/04/21 07:48 37.4 C 08/04/21 07:29 91 H 31 H 90 08/04/21 03:29 85 30 H 92 08/03/21 22:37 84 30 H 93 Laboratory Results Laboratory Tests 08/04/21 08/04/21 05:38 05:38 WBC 8.79 Hgb 8.2 L Hct 25.0 L Plt Count 49 L Sodium 137 Potassium 4.0 D Chloride 105 Carbon Dioxide 21 BUN 125 H Creatinine 1.87 H D Glucose 190 H PG Care Time/CCT Total # of Minutes Spent Total Time Spent with Patient: Total time spent is greater than 50% in coordination of care (as documented) at patient's floor/unit and/or counseling patient: Coding Level of Care Code 51929 Subseq Hosp Care Lvl 3 Diagnoses ASPEN (acute kidney injury) N17.9 CKD (chronic kidney disease) stage 3, GFR 30-59 ml/min N18.3 COVID-19 U07.1 Respiratory failure with hypoxia J96.01 Chronicity: acute Thrombocytopenia D69.6 (1) Respiratory failure with hypoxia Chronicity: acute Qualified Code(s): J96.01 - Acute respiratory failure with hypoxia
[2021-08-04 09:59] LABS: Partial Thromboplastin Ratio 2.5
[2021-08-04 10:04] LABS: Partial Thromboplastin Time 64.6 Seconds (21.0-31.0)
[2021-08-04] MEDS ORDERED: [UNRECOGNIZED DRUG - REMARK] ONE (11:15)
[2021-08-04] MEDS ORDERED: Heparin IV Adult Wt-Based Standard *NO* Bolus Protocol IV SCH (11:27)
--- NOTE | 2021-08-04 13:01 | Critical Care Progress Note ---
Date of Service August 04, 2021 Assessment & Plan (1) COVID-19: (2) Respiratory failure with hypoxia: (3) CKD (chronic kidney disease) stage 3, GFR 30-59 ml/min: (4) Hx of heart artery stent: (5) Hemoptysis: Plan: Impression: 80-year-old female fully vaccinated for Covid admitted to the facility 07/15/2021 with acute on chronic hypoxemic respiratory failure. She was intubated 07/20/2021 and extubated 07/23/2021 but unfortunately then developed hemoptysis and was reintubated 07/25/2021. 24-hour events: Sedation has been discontinued. The patient remains essentially comatose. CT imaging of the head last night was unrevealing. Her ammonia level was slightly increased Recommendations: Neurologic: All sedatives have been discontinued as well as any medications potentially contributing to altered mental status. No indication for repeat imaging. Her elevated ammonia levels being treated with rifaximin and lactulose. We will continue to follow. Her mental status precludes weaning and if aggressive care is to be continued, tracheostomy would be recommended. Pulmonary: Hypoxic respiratory failure secondary to Covid pneumonia complicated by pulmonary edema/hemoptysis. She is now being treated for stenotrophomonas pneumonia. X-ray remains stable. Her vent settings are high enough that we cannot pursue a trial of extubation currently. Cardiovascular: She has an extensive history of coronary artery disease. Echo with LVEF of 55 to 60%. Mild aortic regurgitation. Severe mitral annular calcification. Moderate mitral regurgitation. She remains off pressors. QTc only 407 on EKG showing atrial fibrillation. Transitioning to heparin from argatroban as HIT is felt to be less likely Gastrointestinal: OGT. Dietary managing tube feeding with bowel regimen. Her ammonia levels are increased. She is on lactulose. Add rifaximin. 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 Discussed with nephrology. Hold dialysis for today.. No evidence of pulmonary renal syndrome based on serologies. Ultrafiltration may be beneficial in improving her oxygen requirement Infectious disease: Completed 8 days of Zosyn. Antibiotics discontinued 07/27. Blood cultures from the fifth of show no growth to date. Respiratory culture with pansensitive stenotrophomonas from 07/27. Day #5/14 ceftazidime. Dosing per pharmacy. Other cultures are showing no growth to date. Surveillance cultures are showing no growth to date and her fever curve looks better so we will hold on changing out lines for now Hematologic: Hemoptysis resolved. Hemoglobin stable. Platelet counts continue to decrease. Optical density was low and hit screening pending. Will transition to heparin infusion as I think she has a low probability of HIT. W ill need continued anticoagulation given the DVT Endocrine: Hyperglycemia management per ICU pharmacist. Skin: The patient has multiple areas of ecchymoses and some breakdown. Continue to follow. Wound care as needed VTE prophylaxis: Heparin infusion CODE STATUS: No compressions Disposition: Remain in the ICU. Prognosis is guarded. Daughter again updated by phone. The patient remains critically ill. This current illness will definitely impact of the quality of life. I think they need to readdress tracheostomy as a think that will be required given the patient's mental status, debility, and potential need for long-term mechanical ventilation. Enteric access for tube feeding would also be recommended for her to continue. The patient's daughter, Catherine, indicates that her mother never wanted to be in a senior care facility or be maintained on machines. I advised them that she is being maintained on machines in this case scenario would be that she would eventually be able to be discharged to a senior care facility. The level of debility associated with her prolonged illness (going on 3 weeks) is significant and the patient would not be eligible to be discharged from the hospital to home. She states that she and her sisters are meeting again this evening to discuss the current status. They will get back to us tomorrow. Hopefully palliative care will be able to assist in some discussions with the family and potentially facilitate visit if that would be helpful for the daughters to determine which interventions might be appropriate for their mother. I have personally spent 54 minutes of critical care time in the direct management of this patient. This is a life/limb threatening event. This includes time spent evaluating patient, direct bedside care, chart review, placing orders, interpretation of diagnostic studies, discussion with consultants, patient, and family members, as well as other required patient management activities. This time is exclusive of all separately billable procedures, and teaching time and separate from and in addition to any other critical care service time. Admission and Anticipated Discharge Date Admission Date: July 15, 2021 Subjective intubated. not responsive. Review of Systems Review of Systems: Unobtainable due to endotracheal tube Physical Exam Constitutional: + morbidly obese and + mechanically ventilated; no acute distress Eyes: + anicteric sclerae ENMT: Mouth: + dry oral mucous membranes; no oral mucosal abnormality Neck: normal visual inspection and trachea midline Respiratory: symmetric chest movement Auscultation: + rhonchi Cardiovascular: Rate/Rhythm: regular rate Heart Sounds: normal S1 and normal S2 Extremities: + edema Gastrointestinal (Abdomen): Inspection/Auscultation: normal bowel sounds Percussion/Palpation: abdomen soft Musculoskeletal: Extremities: no cyanosis and no clubbing Skin: normal turgor; no lesions Neurologic: Motor/Sensory: no tremor and no asterixis Results & Data Results & Data ([facility]) Vital Signs (Past 12 Hours) Vital Signs Temp Pulse Resp Pulse Ox 08/04/21 12:20 33 H 08/04/21 11:36 37.6 C H 08/04/21 10:30 103 H 36 H 87 L 08/04/21 10:15 85 31 H 90 08/04/21 10:00 87 30 H 88 L 08/04/21 09:45 95 H 34 H 91 08/04/21 09:30 100 H 32 H 88 L 08/04/21 09:15 108 H 36 H 90 08/04/21 09:00 90 30 H 90 08/04/21 08:45 89 29 H 89 L 08/04/21 08:30 89 27 H 93 08/04/21 08:15 97 H 27 H 91 08/04/21 08:00 83 33 H 91 08/04/21 07:48 37.4 C 08/04/21 07:45 98 H 33 H 90 08/04/21 07:30 93 H 30 H 91 08/04/21 07:29 91 H 31 H 90 08/04/21 07:15 87 26 H 89 L 08/04/21 07:00 92 H 31 H 90 08/04/21 03:29 85 30 H 92 Critical Care Results & Data Vital Signs (Past 12 Hours) Vital Signs Temp Pulse Resp Pulse Ox 08/04/21 12:20 33 H 08/04/21 11:36 37.6 C H 08/04/21 10:30 103 H 36 H 87 L 08/04/21 10:15 85 31 H 90 08/04/21 10:00 87 30 H 88 L 08/04/21 09:45 95 H 34 H 91 08/04/21 09:30 100 H 32 H 88 L 08/04/21 09:15 108 H 36 H 90 08/04/21 09:00 90 30 H 90 08/04/21 08:45 89 29 H 89 L 08/04/21 08:30 89 27 H 93 08/04/21 08:15 97 H 27 H 91 08/04/21 08:00 83 33 H 91 08/04/21 07:48 37.4 C 08/04/21 07:45 98 H 33 H 90 08/04/21 07:30 93 H 30 H 91 08/04/21 07:29 91 H 31 H 90 08/04/21 07:15 87 26 H 89 L 08/04/21 07:00 92 H 31 H 90 08/04/21 03:29 85 30 H 92 Lab & Micro Results (Past 24 Hours) RBC 2.60 M/uL (4.2-5.4) L 08/04/21 WBC 8.79 K/uL (4.8-10.8) 08/04/21 Hgb 8.2 g/dL (12.0-16.0) L 08/04/21 Hct 25.0 % (37-47) L 08/04/21 MCV 96.2 fL (80-100) 08/04/21 MCH 31.5 pg (25-34) 08/04/21 MCHC 32.8 g/dL (32-36) 08/04/21 RDW Standard Deviation 57.4 fL (36.4-46.3) H 08/04/21 RDW Coefficient of Variation 17.0 % (11.5-14.5) H 08/04/21 Plt Count 49 K/uL (130-400) L 08/04/21 Na 137 mmol/L (136-145) 08/04/21 K 4.0 mmol/L (3.5-5.1) 08/04/21 Cl 105 mmol/L (98-107) 08/04/21 CO2 21 mmol/L (21-32) 08/04/21 Anion Gap 11.0 (3-11) 08/04/21 BUN 125 mg/dl (7-18) H 08/04/21 Creatinine 1.87 mg/dl (0.6-1.2) H 08/04/21 Estimated GFR ( Amer) 29.1 ml/min 08/04/21 Estimated GFR (Non-Af Amer) 25.1 ml/min 08/04/21 BUN/Creatinine Ratio 66.6 (10-20) H 08/04/21 Glu 190 mg/dl (70-99) H 08/04/21 Ca 8.6 mg/dl (8.5-10.1) 08/04/21 Phosphorus Level 5.5 mg/dl (2.5-4.9) H 08/04/21 Mg 2.8 mg/dl (1.8-2.4) H 08/04/21 05:38 08/04/21 Calcium Level 8.6 mg/dl (8.5-10.1) 08/04/21 05:38 08/04/21 Edin Test NA 08/04/21 03:35 08/04/21 Microbiology 08/02/21 Unknown Urine Culture - Final Urine,Indwelling Cath No growth - less than 1,000 colonies/mL. 08/02/21 08:29 Aerobic Blood Culture - Preliminary Blood No growth in Aerobic bottle after 48 hours. Anaerobic Blood Culture - Preliminary No growth in Anaerobic bottle after 48 hours. 08/02/21 08:29 Aerobic Blood Culture - Preliminary Blood No growth in Aerobic bottle after 48 hours. Anaerobic Blood Culture - Preliminary No growth in Anaerobic bottle after 48 hours. Diagnostic Findings (Past 24 Hours) Head CT 08/03/21 21:18 CT head/brain wo con CLINICAL HISTORY: not waking, no sedation many days, +argatroban gtt Technique: Contiguous axial CT images of the head were acquired from the base of the skull to the vertex without intravenous contrast administration. Images were viewed in brain, subdural and bone windows. Automated dose lowering techniques and/or adjustment according to patient size were utilized for this exam. Comparison: Comparison is made to CT head 04/07/2017 Findings: Areas of decreased attenuation are present in the periventricular and subcortical white matter bilaterally consistent with small vessel ischemic disease. Generalized cerebral atrophy with commensurate enlargement of the ventricles, sulci, and cisterns is also present. There is no acute intracranial hemorrhage or evidence of acute territorial infarction. No shift of the midline structures, mass effect, or extra-axial abnormalities are shown. Atherosclerotic calcifications are present in the intracranial segments of the internal carotid arteries. Mucosal thickening is seen in the bilateral maxillary sinuses. The orbits appear normal. There are no acute fractures of the calvaria or scalp swelling. Impression: No acute intracranial hemorrhage, no evidence of acute territorial infarction or other acute intracranial disease process. ACT 112: Negative or not required by law. Electronically signed by: Claudio Neves M.D. 08/04/2021 7:16 AM Chest X-Ray 08/04/21 07:00 XR chest 1V portable CLINICAL HISTORY: resp failure TECHNIQUE: Single frontal radiograph of the chest was obtained. Comparison: Comparison is made to chest one view 08/03/2021 FINDINGS: Lines and tubes are stable. The cardiomediastinal silhouette is normal. Multifocal airspace opacities are seen bilaterally. These are essentially unchanged from prior exam. No evidence of pleural effusion or pneumothorax. IMPRESSION: Multifocal airspace opacities are seen bilaterally, unchanged from prior exam. ACT 112: Negative or not required by law. Electronically signed by: Claudio Neves M.D. 08/04/2021 9:07 AM I & O Totals 24 Hours 08/03/21 08/04/21 08/05/21 06:59 06:59 06:59 Intake Total 159.016 / 159.016 225.020 / 225.020 49.832 / 49.832 Output Total 1250 / 1250 1550 / 1550 Balance -1090.984 / -1090.984 -1324.980 / -1324.980 49.832 / 49.832 Cumulative 07/15/21 11:42 thru 08/04/21 11:21 Intake Total 01916.268 Output Total 52025 Balance 3454.268 RT Ventilator Mngmt (Last Documented) Ventilator Ordered Settings Ventilator Support Mode Assist Control 08/04/21 12:20 Respiratory Rate 33 08/04/21 12:20 Ventilator Tidal Volume 380 08/04/21 12:20 Setting Minute Ventilation 12.5 08/04/21 12:20 Ventilator Positive Pressure 6 08/01/21 16:15 Support Setting Positive End Expiratory 10 08/04/21 12:20 Pressure Fraction of Inspired Oxygen 60 08/04/21 12:20 Peak Inspiratory Flow 47 07/27/21 19:07 Machine Comment placed back on full vent due to 08/01/21 19:39 patient tachypneic and spo2 low at 85% Ventilator - PT Measurements Respiratory Rate 33 Exhaled Tidal Volume 381 Minute Ventilation 12.5 Peak Inspiratory Airway 38 Pressure Plateau Pressure 27 Respiratory Cycle Inspiratory: 1:2.1 Expiratory Ratio Inspiratory Phase Time 0.65 End-Tidal CO2 25 Static Lung Compliance 22.41 Dynamic Lung Compliance 13.61 Normal Static Lung Compliance 43.00 Patient Measurements Comment fio2 increased due to spo2 86-87% on 60% Coding Level of Care Code Critical Care 1st 30-74 mins Diagnoses COVID-19 U07.1 Respiratory failure with hypoxia J96.01 Chronicity: acute CKD (chronic kidney disease) stage 3, GFR 30-59 ml/min N18.3 Hx of heart artery stent Z95.5 Hemoptysis R04.2 Time Spent (min) 54 (1) Respiratory failure with hypoxia Chronicity: acute Qualified Code(s): J96.01 - Acute respiratory failure with hypoxia
[2021-08-04] MEDS ORDERED: HEPARIN SODIUM/DEXTROSE 25,000 UNITS/500 ML BAG IV SCH (13:30)
--- NOTE | 2021-08-04 14:38 | Palliative Care Progress Note ---
Date of Service August 04, 2021 Assessment & Plan (1) Palliative care encounter: Plan: I talked at length on the phone with Samreen and reviewed Dr. Jiang's conversation. She understands the gravity of their mothers illness. Discussed having another zoom with them and possibly even working towards having one or two of them visit for a transition to a more conservative/palliative approach. Per discussion with Dr. Jiang, will need to get admin approval for family visitation in the covid unit. Pt daughter to call me with a time for conference call tomorrow. Palliative will follow. (2) COVID-19: (3) Respiratory failure with hypoxia: (4) Chronic kidney disease, stage IV (severe): (5) Diastolic CHF, chronic: (6) Diabetes mellitus type 2: (7) Morbid obesity: Plan: I talked at length on the phone with Samreen and reviewed Dr. Jiang's conversation. She understands the gravity of their mothers illness. Discussed having another zoom with them and possibly even working towards having one or two of them visit for a transition to a more conservative/palliative approach. Per discussion with Dr. Jiang, will need to get admin approval for family visitation in the covid unit. Pt daughter to call me with a time for conference call tomorrow. Palliative will follow. Admission and Anticipated Discharge Date Admission Date: July 15, 2021 Subjective Pt remains in ICU intubated. All sedatives off. No neurologic improvement. See A/P for further details. Review of Systems Review of Systems: Unobtainable due to endotracheal tube Physical Exam Constitutional: + frail appearing Cardiovascular: Rate/Rhythm: regular rate and regular rhythm Extremities: normal capillary refill Gastrointestinal (Abdomen): Inspection/Auscultation: abdomen normal to inspection Skin: + ecchymosis and + pallor Results & Data [facility]) Vital Signs (Past 12 Hours) Vital Signs Temp Pulse Resp Pulse Ox 08/04/21 12:20 33 H 08/04/21 11:36 37.6 C H 08/04/21 10:30 103 H 36 H 87 L 08/04/21 10:15 85 31 H 90 08/04/21 10:00 87 30 H 88 L 08/04/21 09:45 95 H 34 H 91 08/04/21 09:30 100 H 32 H 88 L 08/04/21 09:15 108 H 36 H 90 08/04/21 09:00 90 30 H 90 08/04/21 08:45 89 29 H 89 L 08/04/21 08:30 89 27 H 93 08/04/21 08:15 97 H 27 H 91 08/04/21 08:00 83 33 H 91 08/04/21 07:48 37.4 C 08/04/21 07:45 98 H 33 H 90 08/04/21 07:30 93 H 30 H 91 08/04/21 07:29 91 H 31 H 90 08/04/21 07:15 87 26 H 89 L 08/04/21 07:00 92 H 31 H 90 08/04/21 03:29 85 30 H 92 PG Care Time/CCT Total # of Minutes Spent Total Time Spent with Patient: Total time spent is greater than 50% in coordination of care (as documented) at patient's floor/unit and/or counseling patient: 35 minutes Coding Level of Care Code 08408 Subseq Hosp Care Lvl 3 Diagnoses Palliative care encounter Z51.5 COVID-19 U07.1 Respiratory failure with hypoxia J96.01 Chronicity: acute Chronic kidney disease, stage IV (severe) N18.4 Diastolic CHF, chronic I50.32 Diabetes mellitus type 2 E11.9 Morbid obesity E66.01 Time Spent (min) 35 (1) Respiratory failure with hypoxia Chronicity: acute Qualified Code(s): J96.01 - Acute respiratory failure with hypoxia
--- NOTE | 2021-08-04 15:19 | Pharmacy Report ---
Pharmacy Glycemic Short Note 2 - Date of Service August 04, 2021 - Glycemic Short BSG Results (Last 24 hours): 08/03/21 08/03/21 08/03/21 16:26 16:37 20:13 Glucose POC Glucose 209 H 197 H 153 H 08/04/21 08/04/21 08/04/21 00:03 04:19 05:38 Glucose 190 H POC Glucose 152 H 198 H 08/04/21 08/04/21 07:23 11:11 Glucose POC Glucose 199 H 180 H OUTPATIENT ANTIDIABETIC REGIMEN: * Lantus 43 units SC AM + 26 units SC PM * Novolog 10 units w/ breakfast + 18 units w/ lunch + 18 units w/ dinner * HbA1c = 7.5% 07/16/21 ASSESSMENT: 08/04: * BSGs within goal. Pt received 10 units NPH yesterday afternoon per scale. Steroids discontinued. Novasource continues at goal. * Today, transitioned basal insulin to Lantus given steroid discontinuation. Given home regimen of BID Lantus that is heavier in the AM, will plan for larger Lantus dose in the AM and plan for a scale tonight pending HS BSG. * No change to Novolog today. 08/03: * BSGs controlled yesterday. Fasting BSG elevated this AM. * SoluMedrol tapered off today. NPH 10 units BID given yesterday; held today given steroids D/C'd. Lantus increased to 30 units this morning. TF remain @ goal. iHD planned for today. * BSGs have increased throughout the day today. Given plan for dialysis and increased insulin sensitivity in the setting of steroid discontinuation, will plan for an additional 1X dose of NPH (10 units) this afternoon if BSG remains elevated @ 16oo check. * No adjustments to Novolog today; CF/CR 05/24 08/02: * Uncontrolled BSGs yesterday: [phone] mg/dL * Patient was asymptomatic with hypoglycemia around midnight. Did require full amp of D50 to improve BSG to 111 mg/dL. * Patient received 30 units Lantus + 30 units NPH + 72 units Novolog (UET=869 units) * Solumedrol was decreased to 30 mg IV every 12 hours yesterday * Fasting BSG was 133 mg/dL this AM - controlled * Reduced Lantus and NPH dosing this morning given decrease in steroids and low BSG 08/01: * BSGs were acceptable yesterday. Did have a high of 215 mg/dL in the evening. * BSG this AM up to 254 mg/dL. Novasource renal running at goal and continues on Solumedrol 30 mg IV every 6 hours. * Increased basal to help cover tube feeds and increased NPH to help cover steroids. 07/31: * BSG's responded to reduction in basal and bolus insulin yesterday in response to steroid taper and lower BSG's preceeding. Goal BSG 140-180 mg/dL for ICU status patient * BSG's did gradually increase and are now persistently slightly above goal range, ranging 182-213 yesterday PM to this AM. Will tighten CHO ratio slight ly as increase in Novasource renal rate also likely contributing PLAN FOR INPATIENT GLYCEMIC CONTROL: * Basal insulin * Lantus 40 units SC AM, HS per scale * Bolus insulin * NovoLog per scale Q 4 hrs * Goal Range: Low 110 mg/dL - High 140 mg/dL * Correction Factor: 10 mg/dL/unit * Nutritional / Prandial insulin per carb ratio of 1 unit per 3 grams CHO c onsumed PLAN FOR DISCHARGE: * HbA1c of 7.5% is likely adequate for patient based on age and comorbidities * Reasonable to continue home regimen at discharge provided patient's PO intake is near baseline
--- NOTE | 2021-08-04 15:31 | Hospitalist Progress Note ---
Date of Service August 04, 2021 Assessment & Plan (1) Respiratory failure with hypoxia: (2) COVID-19: Plan: Patient vaccinated fully against Covid, last dose November 2020 Plan: per Dr. Nunez's notes with addendum: Acute on chronic hypoxic respiratory failure ARDS secondary to COVID-19 Vaccinated against Covid, last dose November 2020 -CXR:Extensive bilateral airspace opacities which favor an infectious process such as viral pneumonia. Radiographic follow-up to ensure resolution is recommended. Not a candidate for remdesivir Completed dexamethasone course Patient had respiratory distress post extubation, developed hemoptysis CTA showed extensive groundglass opacities are present throughout both lungs characteristic of a viral type pneumonitis and Covid 19 pneumonia. Reintubated on 07/25/21 Had bronchoscopy with bronchoalveolar lavage which showed no evidence of alveolar hemorrhage Neuromuscular blockade discontinued Bronchial wash 07/28/2021: Stenotrophomonas Ceftazidime ordered Remains febrile Blood cultures negative Urine culture negative Status post Solu-Medrol 30 mg IV Patient off sedation but remains unresponsive CT head unrevealing, ammonia level in the 30s Palliative care on board Further mechanical ventilator management per ICU ASPEN on CKD III Baseline 1.5-1.7; presenting creatinine 1.93 ATN versus acute glomerulonephritis, concern for vasculitis Had dialysis catheter placement on 07/27/21 Continue dialysis as per nephrology Also on Lasix 80 mg IV twice daily Thrombocytopenia Platelet 49K HIT antibodies pending Argatroban started No signs of bleeding Monitor Atrial Fibrillation Rate controlled Monitor CAD Continue statin Aspirin held DM II SSI, glycemic pharmacy DVT Px: Heparin SQ--Held due to Hemoptysis CODE STATUS Full code for now Admission and Anticipated Discharge Date Admission Date: July 15, 2021 Subjective Follow-up for acute hypoxic respiratory failure, COVID-19 pneumonia, etc. intubated Not responsive Already off sedation No signs of distress or pain No other symptoms or signs noted Review of Systems Review of Systems: all noted and negative except for above Physical Exam Physical Exam: General-intubated, breathing with no effort or accessory muscle use Eyes- anicteric Neck- no JVD Lungs-mild rhonchi bilaterally anteriorly Heart- normal rate, regular rhythm; no murmurs Abdomen- normal bowel sounds, nondistended, soft, nontender Extremities-mild generalized edema, no calf tenderness Neuro-not responsive Skin- warm & dry Results & Data Results & Data ([facility]) Vital Signs (Past 12 Hours) Vital Signs Temp Pulse Resp Pulse Ox 08/04/21 12:20 33 H 08/04/21 11:36 37.6 C H 08/04/21 10:30 103 H 36 H 87 L 08/04/21 10:15 85 31 H 90 08/04/21 10:00 87 30 H 88 L 08/04/21 09:45 95 H 34 H 91 08/04/21 09:30 100 H 32 H 88 L 08/04/21 09:15 108 H 36 H 90 08/04/21 09:00 90 30 H 90 08/04/21 08:45 89 29 H 89 L 08/04/21 08:30 89 27 H 93 08/04/21 08:15 97 H 27 H 91 08/04/21 08:00 83 33 H 91 08/04/21 07:48 37.4 C 08/04/21 07:45 98 H 33 H 90 08/04/21 07:30 93 H 30 H 91 08/04/21 07:29 91 H 31 H 90 08/04/21 07:15 87 26 H 89 L 08/04/21 07:00 92 H 31 H 90 08/04/21 03:29 85 30 H 92 (1) Respiratory failure with hypoxia Chronicity: acute Qualified Code(s): J96.01 - Acute respiratory failure with hypoxia
[2021-08-04 19:41] LABS: Source BRONCH WASH
[2021-08-04] MEDS: rifAXIMin 550 MG TABLET PO SCH (20:27)
[2021-08-04 21:44] LABS: Partial Thromboplastin Ratio > 5.3
[2021-08-04 21:48] LABS: Partial Thromboplastin Time > 139.0 Seconds (21.0-31.0)
[2021-08-04 23:59] LABS: Partial Thromboplastin Ratio 4.8
[2021-08-05 00:04] LABS: Partial Thromboplastin Time 125.8 Seconds (21.0-31.0)
[2021-08-05] MEDS: TUBE FEEDING WATER FLUSH OG SCH ×5 (01:08→16:02)
[2021-08-05] MEDS: INSULIN ASPART 100 UNITS/ML VIAL SC SCH ×5 (01:08→18:40)
[2021-08-05 02:26] LABS: Partial Thromboplastin Ratio 3.1
[2021-08-05 02:31] LABS: Partial Thromboplastin Time 80.5 Seconds (21.0-31.0)
[2021-08-05 04:20] LABS: iSTAT Arterial Blood Gas HCO3 21 meg/L (19-24); iSTAT Arterial Blood Gas pCO2 31 mmHg (35-46); iSTAT Arterial Blood Gas pH 7.45 (7.35-7.45); iSTAT Arterial Blood Gas pO2 83 mmHg (80-95); iSTAT Carbon Dioxide 22 mmol/L (24-31); iSTAT FiO2 60 %; iSTAT Site Art Line
[2021-08-05 08:42] LABS: Mean Corpuscular Hgb Conc 32.9 g/dL (32-36); Nucleated RBC # (auto) 0.09 K/uL (0-0); Nucleated RBC % (auto) 1.6 %
[2021-08-05] MEDS ORDERED: INSULIN GLARGINE SOLOSTAR 100 UNITS/ML 3 ML PEN SC SCH (09:00)
[2021-08-05] MEDS: SENNOSIDES 8.8 MG/5 ML UDC PO SCH (09:05)
[2021-08-05] MEDS: FUROSEMIDE 40 MG/4 ML VIAL IV SCH (09:05)
[2021-08-05] MEDS: ATORVASTATIN 40 MG TAB PO SCH (09:05)
[2021-08-05] MEDS: rifAXIMin 550 MG TABLET PO SCH (09:05)
[2021-08-05] MEDS: LACTULOSE SYRUP 20 GM/30 ML UDC PO SCH (09:06)
[2021-08-05] MEDS: POLYETHYLENE (MIRALAX) 17 GM PACK PO SCH (09:07)
[2021-08-05] MEDS: PANTOprazole 40 MG in SYRINGE 0 ML IV SCH (09:07)
--- NOTE | 2021-08-05 09:09 | XRay Report ---
XR chest 1V portable HISTORY: 80 years-old Female f/u acute respiratory failure COMPARISON: Chest radiograph 08/04/2021 TECHNIQUE: Portable AP view of the chest FINDINGS: The cardiac silhouette is enlarged. Endotracheal tube terminates 1.3 cm superior to the ashlee. Uncha nged positioning of the right and left IJ central venous catheters. Enteric tube courses below the di aphragm with distal tip outside the [id number]. Left subclavian pacer. No pneumothorax. Probable t race pleural effusions. Interstitial coarsening with extensive multifocal airspace opacities, stable from comparison. Degenerative changes of the shoulders and spine. IMPRESSION: 1. Stable positioning of life-support lines and tubes. 2. Unchanged extensive bilateral airspace opacities. 3. No pneumothorax. ACT 112: Negative or not required by law. The above report was generated using voice recognition software. It may contain grammatical, syntax o r spelling errors. Electronically signed by: Brian Lawrence M.D. 08/05/2021 9:07 AM
[2021-08-05 09:13] LABS: Hematocrit (blood only) 24.3 % (37-47); Mean Corpuscular Hemoglobin 31.6 pg (25-34); RDW Coefficient of Variation 17.2 % (11.5-14.5); RDW Standard Deviation 58.5 fL (36.4-46.3); Red Blood Count 2.53 M/uL (4.2-5.4); White Blood Count 5.43 K/uL (4.8-10.8)
[2021-08-05 09:17] LABS: Albumin Level 1.5 gm/dl (3.4-5.0); BUN Creatinine Ratio 86.9 (10-20); Bilirubin Direct 0.3 mg/dl (0-0.2); Calcium 8.5 mg/dl (8.5-10.1); Creatinine Clr Calc Pharmacy 30.5 ml/min; Est GFR (African American) 33.1 ml/min; Est GFR (Non-African American) 28.6 ml/min; Magnesium 2.7 mg/dl (1.8-2.4); Phosphorus 5.7 mg/dl (2.5-4.9); Potassium 4.1 mmol/L (3.5-5.1)
[2021-08-05 09:18] LABS: Bilirubin,Total 0.6 mg/dl (0.2-1); Platelet Count 46 K/uL (130-400); Platelet Estimate Decreased (Normal); Total Protein 5.5 gm/dl (6.4-8.2)
--- NOTE | 2021-08-05 09:32 | Nephrology Progress Note ---
Date of Service August 05, 2021 Assessment & Plan (1) ASPEN (acute kidney injury): Plan: * Admitted w/ COVID pneumonia. ASPEN due to ATN. Vasculitis evaluation was negative * L IJ THC placed and 1st HD completed 07/27/21 * Nonoliguric. Net 1300 cc UO yesterday * Remains 1.9 L volume + since admission * Reduce Furosemide 80mg IV to BID * Continue to hold HD. Monitor UO, PRP * Cr improved to 1.6 this morning (2) CKD (chronic kidney disease) stage 3, GFR 30-59 ml/min: Plan: * Stage III CKD w/ baseline Cr ~1.5 mg/dL due to DKD (3) COVID-19: Plan: * Methylprednisolone has been tapered to off (4) Respiratory failure with hypoxia: Plan: * COVID pneumonia * CXR film this am unchanged from yesterday * FiO2 has decreased to 50%, SaO2 is acceptable at 98% * Will reduce Furosemide to 80 mg IV BID (5) Thrombocytopenia: Plan: * Platelets relatively stable. HIT ab pending Admission and Anticipated Discharge Date Admission Date: July 15, 2021 Subjective Mechanically ventilated. Review of Systems Review of Systems: Unobtainable due to endotracheal tube Physical Exam Physical Exam: PE held today. Patient remains on respiratory isolation due to COVID pneumonia. Plan of care reviewed w/ ICU team [facility] & [facility] ([facility]) Vital Signs (Past 12 Hours) Vital Signs Pulse Resp Pulse Ox 08/05/21 08:00 95 H 08/05/21 07:40 85 27 H 98 08/05/21 06:45 98 H 33 H 95 08/05/21 03:26 93 H 34 H 93 08/04/21 23:48 89 36 H 89 L Laboratory Results Laboratory Tests 08/05/21 08/05/21 08:24 08:24 WBC 5.43 Hgb 8.0 L Hct 24.3 L Plt Count 46 L Sodium 139 Potassium 4.1 Chloride 106 Carbon Dioxide 21 BUN 146 H Creatinine 1.68 H Glucose 259 H PG Care Time/CCT Total # of Minutes Spent Total Time Spent with Patient: Total time spent is greater than 50% in coordination of care (as documented) at patient's floor/unit and/or counseling patient: Coding Level of Care Code 87289 Subseq Hosp Care Lvl 3 Diagnoses ASPEN (acute kidney injury) N17.9 CKD (chronic kidney disease) stage 3, GFR 30-59 ml/min N18.3 COVID-19 U07.1 Respiratory failure with hypoxia J96.01 Chronicity: acute Thrombocytopenia D69.6 (1) Respiratory failure with hypoxia Chronicity: acute Qualified Code(s): J96.01 - Acute respiratory failure with hypoxia
[2021-08-05 09:52] LABS: Partial Thromboplastin Ratio 4.3
[2021-08-05 10:06] LABS: Partial Thromboplastin Time 112.9 Seconds (21.0-31.0)
--- NOTE | 2021-08-05 10:28 | Palliative Care Progress Note ---
Date of Service August 05, 2021 Assessment & Plan (1) Palliative care encounter: Plan: Patient was able to be removed from airborne isolation and moved to a regular ICU room. Lengthy conversation held with Samreen, one of Anjali's daughters. Her and her sister Sarah recognize that their mother is declining and not showing signs of overall meaningful recovery. We reviewed all of her labs, current vital signs, reinitiation of pressors, poor and failing kidney function, and lack of neurologic interaction, along with us not meeting her metabolic requirements, and just overall being in a deconditioned state from 3 weeks of being in an ICU. Overall, all three daughters agree that she would not want to live in a half-way acute hospital setting hooked up to machines. One daughter, Nicole, stated that she has a friend who has recovered from COVID-19 despite being on a ventilator, now shes on a kidney transplant list. I explained her multisystem organ failure in detail and answered their questions. As we had our meeting, she continued to have a RR in the mid 30s- low 40s We discussed the inability to sustain that level of breathing lobsterman before we need to make a decision on re-sedation/trach, or compassionate withdraw of care. I explained that even if they decide for a trach, nothing else really changes in her care as she will still not be awake will still be attached to the ventilator and, at best, require months of half-way hospitalization. I explained that I think their mother's body is failing her and slowly dying. When we are unable to fix what is occurring, I encouraged their focus to shift to focusing on someone dying with dignity and comfort, not attached to machines. Nicole mentioned her and her mothers omari is important to her, I suggested a library sales consultant come to the bedside which may in turn help with the decision. I did set expectation that we do need to determine how aggressive we want to be in their mothers care. After lengthy conversation with multiple providers including myself, Dr. Jiang, Dr. Lancaster, and Simone WEAVER the family took time to call other family members to allow them to say goodbye. Transition care to comfort measures only with a compassionate extubation to occur. Dilaudid IV ordered and suggested that a dose be administered just prior to extubation. Simone Kerr assisting with order placement. Life expectancy minutes to hours. DNR order will be placed post extubation.Thanks for allowing palliative to participate in her care. (2) COVID-19: (3) Respiratory failure with hypoxia: (4) Chronic kidney disease, stage IV (severe): (5) Diastolic CHF, chronic: (6) Diabetes mellitus type 2: (7) Morbid obesity: Admission and Anticipated Discharge Date Admission Date: July 15, 2021 Subjective Mechanically ventilated. Sedation has been turned off and no meaningful signs of neuro wake up. All three daughters at the bedside for family meeting. Review of Systems Review of Systems: Unobtainable due to endotracheal tube Physical Exam Constitutional: + frail appearing Cardiovascular: Rate/Rhythm: regular rate and regular rhythm Extremities: normal capillary refill Gastrointestinal (Abdomen): Inspection/Auscultation: abdomen normal to inspection Skin: + ecchymosis and + pallor Results & Data ([facility]) Vital Signs (Past 12 Hours) Vital Signs Pulse Resp Pulse Ox 08/05/21 10:00 92 H 34 H 93 08/05/21 09:45 88 36 H 94 08/05/21 09:30 91 H 34 H 93 08/05/21 09:15 79 28 H 97 08/05/21 09:00 96 H 32 H 93 08/05/21 08:45 90 35 H 95 08/05/21 08:30 89 31 H 93 08/05/21 08:15 91 H 31 H 92 08/05/21 08:00 101 H 33 H 94 08/05/21 07:45 89 32 H 91 08/05/21 07:40 85 27 H 98 08/05/21 07:30 96 H 33 H 94 08/05/21 07:15 91 H 35 H 92 08/05/21 07:00 93 H 31 H 93 08/05/21 06:45 98 H 33 H 95 08/05/21 03:26 93 H 34 H 93 08/04/21 23:48 89 36 H 89 L PG Care Time/CCT Total # of Minutes Spent Total Time Spent with Patient: Total time spent is greater than 50% in coordination of care (as documented) at patient's floor/unit and/or counseling patient: 150 minutes Coding Level of Care Code 92562 Subseq Hosp Care Lvl 3 Diagnoses Palliative care encounter Z51.5 COVID-19 U07.1 Respiratory failure with hypoxia J96.01 Chronicity: acute Chronic kidney disease, stage IV (severe) N18.4 Diastolic CHF, chronic I50.32 Diabetes mellitus type 2 E11.9 Morbid obesity E66.01 Time Spent (min) 150 (1) Respiratory failure with hypoxia Chronicity: acute Qualified Code(s): J96.01 - Acute respiratory failure with hypoxia
--- NOTE | 2021-08-05 11:12 | XRay Report ---
KUB HISTORY: Insertion of NG tube. COMPARISON: Chest 08/05/2021. FINDINGS: Nasogastric tube terminates at the expected location of the distal stomach. No dilated loop s of bowel to suggest an obstruction. No renal calculi. No ureteral calculi. No pneumoperitoneum or pneumatosis. IMPRESSION: Nasogastric tube terminates at the expected location of the distal stomach. ACT 112: Negative or not required by law. Electronically signed by: Stevo Alvarez M.D. 08/05/2021 11:10 AM
[2021-08-05] MEDS ORDERED: STAT IV Infusion **Titration per Protocol STA (12:33)
[2021-08-05] MEDS ORDERED: NOREPINEPHRINE/D5W 8 MG/508 ML BAG IV SCH (12:45)
--- NOTE | 2021-08-05 14:04 | Pharmacy Report ---
Pharmacy Glycemic Short Note 2 - Date of Service August 05, 2021 - Glycemic Short BSG Results (Last 24 hours): 08/04/21 08/04/21 08/05/21 16:26 20:18 01:05 Glucose POC Glucose 122 H 132 H 177 H 08/05/21 08/05/21 08/05/21 04:05 07:57 08:24 Glucose 259 H POC Glucose 233 H 260 H 08/05/21 11:48 Glucose POC Glucose 197 H OUTPATIENT ANTIDIABETIC REGIMEN: * Lantus 43 units SC AM + 26 units SC PM * Novolog 10 units w/ breakfast + 18 units w/ lunch + 18 units w/ dinner * HbA1c = 7.5% 07/16/21 ASSESSMENT: 08/05: * Fasting BSGs elevated this AM. BSGs throughout the day yesterday within goal. Pt received 40 units of basal and 50 of Novolog yesterday. * Pt remains intubated. All sedation off (unresponsive). Heparin drip in D5W continues, norepinephrine @ 0.05mcg/kg/min, Novasource @ goal. * Lantus dose increased this AM to 45 units. Plan for an HS scale again tonight. * Novolog CF/CR tightened to 8/2.5 today. 08/04: * BSGs within goal. Pt received 10 units NPH yesterday afternoon per scale. Steroids discontinued. Novasource continues at goal. * Today, transitioned basal insulin to Lantus given steroid discontinuation. Given home regimen of BID Lantus that is heavier in the AM, will plan for larger Lantus dose in the AM and plan for a scale tonight pending HS BSG. * No change to Novolog today. 08/03: * BSGs controlled yesterday. Fasting BSG elevated this AM. * SoluMedrol tapered off today. NPH 10 units BID given yesterday; held today given steroids D/C'd. Lantus increased to 30 units this morning. TF remain @ goal. iHD planned for today. * BSGs have increased throughout the day today. Given plan for dialysis and increased insulin sensitivity in the setting of steroid discontinuation, will plan for an additional 1X dose of NPH (10 units) this afternoon if BSG remains elevated @ 16oo check. * No adjustments to Novolog today; CF/CR 05/24 08/02: * Uncontrolled BSGs yesterday: [phone] mg/dL * Patient was asymptomatic with hypoglycemia around midnight. Did require full amp of D50 to improve BSG to 111 mg/dL. * Patient received 30 units Lantus + 30 units NPH + 72 units Novolog (XOC=596 units) * Solumedrol was decreased to 30 mg IV every 12 hours yesterday * Fasting BSG was 133 mg/dL this AM - controlled * Reduced Lantus and NPH dosing this morning given decrease in steroids and low BSG 08/01: * BSGs were acceptable yesterday. Did have a high of 215 mg/dL in the evening. * BSG this AM up to 254 mg/dL. Novasource renal running at goal and continues on Solumedrol 30 mg IV every 6 hours. * Increased basal to help cover tube feeds and increased NPH to help cover steroids. PLAN FOR INPATIENT GLYCEMIC CONTROL: * Basal insulin * Lantus 45 units SC AM, HS per scale * Bolus insulin * NovoLog per scale Q 4 hrs * Goal Range: Low 110 mg/dL - High 140 mg/dL * Correction Factor: 8 mg/dL/unit * Nutritional / Prandial insulin per carb ratio of 1 unit per 2.5 grams CHO consumed PLAN FOR DISCHARGE: * HbA1c of 7.5% is likely adequate for patient based on age and comorbidities * Reasonable to continue home regimen at discharge provided patient's PO intake is near baseline
--- NOTE | 2021-08-05 14:14 | Critical Care Progress Note ---
Date of Service August 05, 2021 Assessment & Plan (1) COVID-19: (2) Respiratory failure with hypoxia: (3) CKD (chronic kidney disease) stage 3, GFR 30-59 ml/min: (4) Hx of heart artery stent: (5) Hemoptysis: Plan: Impression: 80-year-old female fully vaccinated for Covid admitted to the facility 07/15/2021 with acute on chronic hypoxemic respiratory failure. She was intubated 07/20/2021 and extubated 07/23/2021 but unfortunately then developed hemoptysis and was reintubated 07/25/2021. She has suffered ASPEN/ATN requiring dialysis therapy as well. 24-hour events: Sedation has been discontinued. The patient remains essentially comatose. CT imaging of the head last night was unrevealing. Her ammonia level was slightly increased as well as remaining uremic and her pulmonary infeciton appears to be being treated well with abx. Recommendations: Neurologic: All sedatives have been discontinued as well as any medications potentially contributing to altered mental status. No indication for repeat imaging at this time. Her elevated ammonia levels being treated with rifaximin and lactulose. We will continue to follow. Her mental status precludes weaning and if aggressive care is to be continued, tracheostomy would be recommended. Pulmonary: Hypoxic respiratory failure secondary to Covid pneumonia complicated by pulmonary edema/hemoptysis. She is now being treated for Stenotrophomonas pneumonia. Her vent settings are downtrending, but with her mental status she is unable to participate in SBT to evaluate for possible extubation. Cardiovascular: She has an extensive history of coronary artery disease. Echo with LVEF of 55 to 60%. Mild aortic regurgitation. Severe mitral annular calcification. Moderate mitral regurgitation. She remains off pressors. Afib on monitor with PVC and PAcs. Remains on Heparin drip for her LE DVT Gastrointestinal: OGT. Dietary managing tube feeding with bowel regimen. Her ammonia levels are increased. She is on lactulose. Add rifaximin. 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 Plan is to hold on HD today. No evidence of pulmonary renal syndrome based on serologies. Infectious disease: Completed 8 days of Zosyn. Antibiotics discontinued 07/27. Blood cultures from the fifth of show no growth to date. Respiratory culture with pansensitive stenotrophomonas from 07/27. Day #5/14 ceftazidime. Dosing per pharmacy. Other cultures are showing no growth to date. Surveillance cultures are showing no growth to date and her fever curve looks better so we will hold on changing out lines for now Hematologic: Hemoptysis resolved. Hemoglobin stable. Platelet counts continue to decrease. Optical density was low and hit screening pending. Will transition to heparin infusion as I think she has a low probability of HIT. Will need continued anticoagulation given the DVT Endocrine: Hyperglycemia management per ICU pharmacist. Skin: The patient has multiple areas of ecchymoses and some breakdown. Continue to follow. Wound care as needed VTE prophylaxis: Heparin infusion CODE STATUS: No compressions Disposition: Remain in the ICU. Prognosis is guarded. Daughters plan to visit at the bedside today with palliative care. The patient remains critically ill. This current illness will definitely impact of the quality of life. Goal today will be to readdress tracheostomy as that will be required given the patient's mental status, debility, and potential need for long-term mechanical ventilation. Enteric access for tube feeding would also be recommended for her to continue to meet her metabolic needs. Record review from previous discussions reveals that daughter Catherine, indicates that her mother never wanted to be in a residential facility or be maintained on machines. she has been advised that she is being maintained on machines in this case scenario would be that she would eventually be able to be discharged to a residential facility. The level of debility associated with her prolonged illness (going on 3 weeks) is significant and the patient would not be eligible to be discharged from the hospital to home. She states that she and her sisters are meeting again this evening to discuss the current status. We are Hopeful that personal visit with palliative care will be able to assist in some discussions with the family and potentially facilitate determination which interventions might be appropriate for their mother. I have personally spent 45 minutes of critical care time in the direct management of this patient. This is a life/limb threatening event. This includes time spent evaluating patient, direct bedside care, chart review, placing orders, interpretation of diagnostic studies, discussion with consultants, patient, and family members, as well as other required patient management activities. This time is exclusive of all separately billable procedures, and teaching time and separate from and in addition to any other critical care service time. Admission and Anticipated Discharge Date Admission Date: July 15, 2021 Subjective Patient remains intubated on mechanical evaluation for hypoxic respiratory failure secondary to COVID 19. This is patient's second intubation this hospitalization. Her case has been complicated by acute ATN and ASPEN requiring dialysis. She has been off sedation for 3 days at this time with no clearing of her mental state as well as negative CT imaging for acute large ischemic process. Patient is unable to progress with ventilation weaning secondary to her mental status. She remains oon minimal ventilator settings at this time and has remained off vasopressors. Family will meet with palliative care today at the patient's bedside to discuss goals of care and direction of care they would like to proceed with. Patient will need Tracheostomy and PEG tube placement in the near future if continued full care is sought after. Patient has poor functional prognosis at this time secondary to her deconditioning, continued renal dysfunction, and mechanical ventilator support. This will likely require SNF placement as well. Her platlet counts have remained stable overnight in 40s, she has a lower extremity DVT and was transitioned back to low dose heparin following Argatroban therapy. Review of Systems Review of Systems: Unable to perform- she is intubated, sedated, and paralyzed. Physical Exam Physical Exam: GENERAL : Continues on mechanical ventilation without sedation. EYES: No icterus, gaze conjugate. Pupils are equal and round sluggish NOSE: No evidence of epistaxis MOUTH: No lesions or candidiasis NECK: Supple LUNGS: Continues with decreased breath sounds. Off of neuromuscular blockade. scattered rhonchi throughout HEART: Regular, rate controlled ABDOMEN: Soft, NT, ND, BS Present EXTREMITIES: No LE edema, pedal pulses intact NEURO: No sedation, mechanical ventilatio, + cough, no withdraw to pain, pupils sluggish but reactive. Results & Data Results & Data ([facility]) Vital Signs (Past 12 Hours) Vital Signs Pulse Resp Pulse Ox 08/05/21 11:40 87 27 H 95 08/05/21 11:30 82 27 H 94 08/05/21 11:15 91 H 33 H 89 L 08/05/21 11:00 34 H 95 08/05/21 10:45 101 H 33 H 92 08/05/21 10:30 94 H 36 H 95 08/05/21 10:15 91 H 33 H 94 08/05/21 10:00 92 H 34 H 93 08/05/21 09:45 88 36 H 94 08/05/21 09:30 91 H 34 H 93 08/05/21 09:15 79 28 H 97 08/05/21 09:00 96 H 32 H 93 08/05/21 08:45 90 35 H 95 08/05/21 08:30 89 31 H 93 08/05/21 08:15 91 H 31 H 92 08/05/21 08:00 101 H 33 H 94 08/05/21 07:45 89 32 H 91 08/05/21 07:40 85 27 H 98 08/05/21 07:30 96 H 33 H 94 08/05/21 07:15 91 H 35 H 92 08/05/21 07:00 93 H 31 H 93 08/05/21 06:45 98 H 33 H 95 08/05/21 03:26 93 H 34 H 93 Laboratory Results Abnormal lab results 08/04/21 08/04/21 08/04/21 Range/Units 16:26 20:18 21:12 RBC (4.2-5.4) M/uL Hgb (12.0-16.0) g/dL Hct (37-47) % RDW Std Deviation (36.4-46.3) fL RDW Coeff of Favian (11.5-14.5) % Plt Count (130-400) K/uL Absolute Nucleated RBC (0-0) K/uL Platelet Estimate (Normal) APTT > 139.0 H* (21.0-31.0) Seconds POC pCO2 (35-46) mmHg POC Total CO2 (24-31) mmol/L POC ABG O2 Sat (90-95) % Anion Gap (3-11) BUN (7-18) mg/dl Creatinine (0.6-1.2) mg/dl BUN/Creatinine Ratio (10-20) Glucose (70-99) mg/dl POC Glucose 122 H 132 H (70-99) mg/dl Phosphorus (2.5-4.9) mg/dl Magnesium (1.8-2.4) mg/dl Direct Bilirubin (0-0.2) mg/dl AST (15-37) U/L Alkaline Phosphatase (45-117) U/L Total Protein (6.4-8.2) gm/dl Albumin (3.4-5.0) gm/dl 08/04/21 08/05/21 08/05/21 Range/Units 23:12 00:29 01:05 RBC (4.2-5.4) M/uL Hgb (12.0-16.0) g/dL Hct (37-47) % RDW Std Deviation (36.4-46.3) fL RDW Coeff of Favian (11.5-14.5) % Plt Count (130-400) K/uL Absolute Nucleated RBC (0-0) K/uL Platelet Estimate (Normal) APTT 125.8 H* 105.0 H* (21.0-31.0) Seconds POC pCO2 (35-46) mmHg POC Total CO2 (24-31) mmol/L POC ABG O2 Sat (90-95) % Anion Gap (3-11) BUN (7-18) mg/dl Creatinine (0.6-1.2) mg/dl BUN/Creatinine Ratio (10-20) Glucose (70-99) mg/dl POC Glucose 177 H (70-99) mg/dl Phosphorus (2.5-4.9) mg/dl Magnesium (1.8-2.4) mg/dl Direct Bilirubin (0-0.2) mg/dl AST (15-37) U/L Alkaline Phosphatase (45-117) U/L Total Protein (6.4-8.2) gm/dl Albumin (3.4-5.0) gm/dl 08/05/21 08/05/21 08/05/21 Range/Units 01:50 03:30 04:05 RBC (4.2-5.4) M/uL Hgb (12.0-16.0) g/dL Hct (37-47) % RDW Std Deviation (36.4-46.3) fL RDW Coeff of Favian (11.5-14.5) % Plt Count (130-400) K/uL Absolute Nucleated RBC (0-0) K/uL Platelet Estimate (Normal) APTT 80.5 H* (21.0-31.0) Seconds POC pCO2 31 L (35-46) mmHg POC Total CO2 22 L (24-31) mmol/L POC ABG O2 Sat 97.0 H (90-95) % Anion Gap (3-11) BUN (7-18) mg/dl Creatinine (0.6-1.2) mg/dl BUN/Creatinine Ratio (10-20) Glucose (70-99) mg/dl POC Glucose 233 H (70-99) mg/dl Phosphorus (2.5-4.9) mg/dl Magnesium (1.8-2.4) mg/dl Direct Bilirubin (0-0.2) mg/dl AST (15-37) U/L Alkaline Phosphatase (45-117) U/L Total Protein (6.4-8.2) gm/dl Albumin (3.4-5.0) gm/dl 08/05/21 08/05/21 08/05/21 Range/Units 07:57 08:24 08:24 RBC 2.53 L (4.2-5.4) M/uL Hgb 8.0 L (12.0-16.0) g/dL Hct 24.3 L (37-47) % RDW Std Deviation 58.5 H (36.4-46.3) fL RDW Coeff of Favian 17.2 H (11.5-14.5) % Plt Count 46 L (130-400) K/uL Absolute Nucleated RBC 0.09 H (0-0) K/uL Platelet Estimate Decreased L (Normal) APTT (21.0-31.0) Seconds POC pCO2 (35-46) mmHg POC Total CO2 (24-31) mmol/L POC ABG O2 Sat (90-95) % Anion Gap 12.0 H (3-11) BUN 146 H (7-18) mg/dl Creatinine 1.68 H (0.6-1.2) mg/dl BUN/Creatinine Ratio 86.9 H (10-20) Glucose 259 H (70-99) mg/dl POC Glucose 260 H (70-99) mg/dl Phosphorus 5.7 H (2.5-4.9) mg/dl Magnesium 2.7 H (1.8-2.4) mg/dl Direct Bilirubin 0.3 H (0-0.2) mg/dl AST 95 H (15-37) U/L Alkaline Phosphatase 120 H (45-117) U/L Total Protein 5.5 L (6.4-8.2) gm/dl Albumin 1.5 L (3.4-5.0) gm/dl 08/05/21 08/05/21 Range/Units 08:24 11:48 RBC (4.2-5.4) M/uL Hgb (12.0-16.0) g/dL Hct (37-47) % RDW Std Deviation (36.4-46.3) fL RDW Coeff of Favian (11.5-14.5) % Plt Count (130-400) K/uL Absolute Nucleated RBC (0-0) K/uL Platelet Estimate (Normal) APTT 112.9 H* (21.0-31.0) Seconds POC pCO2 (35-46) mmHg POC Total CO2 (24-31) mmol/L POC ABG O2 Sat (90-95) % Anion Gap (3-11) BUN (7-18) mg/dl Creatinine (0.6-1.2) mg/dl BUN/Creatinine Ratio (10-20) Glucose (70-99) mg/dl POC Glucose 197 H (70-99) mg/dl Phosphorus (2.5-4.9) mg/dl Magnesium (1.8-2.4) mg/dl Direct Bilirubin (0-0.2) mg/dl AST (15-37) U/L Alkaline Phosphatase (45-117) U/L Total Protein (6.4-8.2) gm/dl Albumin (3.4-5.0) gm/dl Diagnostic Findings XR chest 1V portable HISTORY: 80 years-old Female f/u acute respiratory failure COMPARISON: Chest radiograph 08/04/2021 TECHNIQUE: Portable AP view of the chest FINDINGS: The cardiac silhouette is enlarged. Endotracheal tube terminates 1.3 cm superior to the ashlee. Unchanged positioning of the right and left IJ central venous cat heters. Enteric tube courses below the diaphragm with distal tip outside the [id number]. Left subclavian pacer. No pneumothorax. Probable trace pleural effusions. Interstitial coarsening with extensive multifocal airspace opacities, stable from comparison. Degenerative changes of the shoulders and spine. IMPRESSION: 1. Stable positioning of life-support lines and tubes. 2. Unchanged extensive bilateral airspace opacities. 3. No pneumothorax. KUB HISTORY: Insertion of NG tube. COMPARISON: Chest 08/05/2021. FINDINGS: Nasogastric tube terminates at the expected location of the distal stomach. No dilated loops of bowel to suggest an obstruction. No renal calculi. No ureteral calculi. No pneumoperitoneum or pneumatosis. IMPRESSION: Nasogastric tube terminates at the expected location of the distal stomach. Coding Level of Care Code Critical Care 1st 30-74 mins Diagnoses COVID-19 U07.1 Respiratory failure with hypoxia J96.01 Chronicity: acute CKD (chronic kidney disease) stage 3, GFR 30-59 ml/min N18.3 Hx of heart artery stent Z95.5 Hemoptysis R04.2 (1) Respiratory failure with hypoxia Chronicity: acute Qualified Code(s): J96.01 - Acute respiratory failure with hypoxia
[2021-08-05] MEDS ORDERED: GLYCOPYRROLATE 0.2 MG/ML VIAL IV PRN (18:51)
[2021-08-05] MEDS: HYDROmorphone INJ 0.5 MG/0.5 ML SYR IV PRN ×2 (19:51→21:36)
[2021-08-05] MEDS ORDERED: LORazepam 0.5 MG/1 ML VIAL IV PRN (19:54)
[2021-08-05] MEDS ORDERED: ONDANSETRON INJ 2 MG/ML 2 ML VIAL IV PRN (19:54)
[2021-08-05] MEDS ORDERED: FUROSEMIDE 40 MG/4 ML VIAL IV SCH (21:00)
--- NOTE | 2021-08-05 21:47 | Hospitalist Progress Note ---
Date of Service August 05, 2021 Assessment & Plan (1) Respiratory failure with hypoxia: (2) COVID-19: Plan: Acute on chronic hypoxic respiratory failure ARDS secondary to COVID-19 Vaccinated against Covid, last dose November 2020 CXR:Extensive bilateral airspace opacities which favor an infectious process such as viral pneumonia. Radiographic follow-up to ensure resolution is recommended. Not a candidate for remdesivir Completed dexamethasone course She was intubated 07/20/2021nd extubated 07/23/2021; Then reintubated on 07/25 due to worsening respiratory distress and hemoptysis CTA showed extensive groundglass opacities are present throughout both lungs characteristic of a viral type pneumonitis and Covid 19 pneumonia. Had bronchoscopy with bronchoalveolar lavage which showed no evidence of alveolar hemorrhage Neuromuscular blockade discontinued Has been off sedation Continue to require vent support Bronchial wash 07/28/2021: Stenotrophomonas maltophilia Currently on ceftazidime daily Palliative care on board for goals of care Ongoing discussion with family. Might transition to comfort care Atrial Fibrillation Rate controlled Monitor Mild hyponatremia Sodium level normalized ASPEN on CKD III Baseline 1.5-1.7; presenting creatinine 1.93 ATN versus acute glomerulonephritis, concern for vasculitis Had dialysis catheter placement on 07/27/21 Continue dialysis as per nephrology CAD Continue statin Aspirin held DM II SSI, glycemic pharmacy DVT Px: Heparin SQ--Held due to Hemoptysis CODE STATUS Palliative care on board for goals of care Family is planning to transition to comfort care Admission and Anticipated Discharge Date Admission Date: July 15, 2021 Subjective Patient was seen and evaluated for respiratory failure due to COVID 19 Intubated on Mechanical ventilation support patient has been off sedation for days and family sitting at bedside All 3 daughters are sitting at bedside Palliative care spoke to daughter for goals of care and possible to transition to comfort care Review of Systems Review of Systems: All systems reviewed & are unremarkable except as noted in Subjective Physical Exam Physical Exam: General- mechanical vent support Head- atraumatic Eyes- PERRL, EOMI, ENT-intubated Neck- supple, no JVD Lungs-diminished breath sounds Heart- regular rhythm; no murmur Abdomen- normal bowel sounds, soft, nontender Extremities- no calf tenderness Neuro-Unresponsive Results & Data Results & Data ([facility]) Vital Signs (Past 12 Hours) Vital Signs Pulse Resp Pulse Ox 08/05/21 17:15 113 H 34 H 90 08/05/21 17:00 106 H 34 H 90 08/05/21 16:45 103 H 33 H 90 08/05/21 16:35 103 H 34 H 90 08/05/21 16:30 108 H 32 H 90 08/05/21 16:15 104 H 32 H 90 08/05/21 16:00 99 H 33 H 88 L 08/05/21 15:45 108 H 31 H 89 L 08/05/21 15:30 94 H 27 H 89 L 08/05/21 15:15 94 H 34 H 88 L 08/05/21 15:00 101 H 37 H 89 L 08/05/21 14:45 99 H 34 H 89 L 08/05/21 14:30 93 H 34 H 89 L 08/05/21 14:15 102 H 33 H 89 L 08/05/21 14:00 102 H 33 H 90 08/05/21 13:45 94 H 29 H 91 08/05/21 13:30 93 H 26 H 91 08/05/21 13:15 85 26 H 97 08/05/21 13:00 89 28 H 92 08/05/21 12:45 78 28 H 93 08/05/21 12:30 75 27 H 93 08/05/21 12:15 81 31 H 93 08/05/21 12:04 83 26 H 93 08/05/21 11:45 79 30 H 92 08/05/21 11:40 87 27 H 95 08/05/21 11:30 82 27 H 94 08/05/21 11:15 91 H 33 H 89 L 08/05/21 11:00 34 H 95 08/05/21 10:45 101 H 33 H 92 08/05/21 10:30 94 H 36 H 95 08/05/21 10:15 91 H 33 H 94 08/05/21 10:00 92 H 34 H 93 (1) Respiratory failure with hypoxia Chronicity: acute Qualified Code(s): J96.01 - Acute respiratory failure with hypoxia
[2021-08-05] MEDS ORDERED: ETOMIDATE 2 MG/ML 20 ML VIAL IV ONE (22:14)
[2021-08-05] MEDS ORDERED: SUCCINYLCHOLINE CHLORIDE 20 MG/ML 10 ML VIAL IV ONE (22:14)
--- NOTE | 2021-08-05 22:30 | Death Pronouncement Note ---
Date of Service August 05, 2021 Pronouncement Note Admission Date Admission Date: July 15, 2021 Date and Time of Date of : 08/05/21 Time of : 22:15 Contributing Factors (1) Respiratory failure with hypoxia: (2) COVID-19: Additional Data Confirmation of : no pulse, no respirations, no heart sounds and pupils fixed and dilated Family: at bedside Attending/PCP notified?: No Attending physician: Nicky Lancaster MD Was code activated?: No Autopsy requested?: No workers compensation claims examiner notified?: No Organ bank notified?: Yes Advance directives: No Coding Level of Care Code D/C DAY MANAGEMENT <30 MINS Diagnoses Respiratory failure with hypoxia J96.01 Chronicity: acute COVID-19 U07.1
--- NOTE | 2021-08-19 09:28 | Discharge Summary ---
Date of Service August 05, 2021 Admission HPI Per Admitting Provider 80-year-old female with PMH of respiratory failure with hypoxia, CKD, hyperparathyroidism, morbid obesity, HLD, neuropathy, diastolic CHF, HTN, CAD, lymphedema, junctional bradycardia, HTN and intractable back pain presented to our ED 07/15 with complaint of cough and runny nose since last 10 days associated with worsening of shortness of breath since last 2 to 3 days. Patient complains of cough with yellow sputum but denies any fever. Patient also states having headache. Patient reports constipation at baseline. Patient denies any belly pain/chest pain/pain or burning while passing urine/acute changes in her bowel habits recently. No personal history of cancer clot per patient. No history of seizure or stroke. Patient uses 2 L oxygen at night since last few years. She reports increasing the need of oxygen recently. Family history is significant for TN at age 68 in mother and at age 66 and brother. Patient has a history of TN x1 with status post stent x1 and CAD status post pacer. Patient denies smoking/alcohol consumption/recreational drugs Full code Admission Exam Per Admitting Provider GENERAL: Alert and oriented x3. NAD, on BPAP making communication difficult. HEENT: No pallor, no icterus. Pupils equal, round and reactive to light. Oral mucosa dry. NECK: No JVD, no neck masses. HEART: S1 and S2 heard. Regular rate and rhythm. No murmur appreciated, no gallop. RESPIRATORY SYSTEM: Normal AP diameter. No accessory muscle use. No wheezing, fine crackles diffuse and b/l pronounced bibasilar. Wet cough. ABDOMEN: Soft, bowel sounds present, nontender, no distention. CENTRAL NERVOUS SYSTEM: Alert and oriented x3. No facial droop. Speech is clear. Obeys simple commands. Moves extremities. EXTREMITIES: 1+ BLE edema with chronic skin changes, no erythema seen. Principal Diagnosis Acute on chronic hypoxic respiratory failure ARDS secondary to COVID-19 Atrial Fibrillation Mild hyponatremia ASEPN on CKD III CAD DM II Discharge Exam Confirmation of : no pulse, no respirations, no heart sounds and pupils fixed and dilated Discharge Data Allergies Allergy/AdvReac Type Severity Reaction Status Date / Time sulfamethoxazole Allergy Intermediate RASH Verified 07/23/21 13:49 trimethoprim Allergy Intermediate RASH Verified 07/23/21 13:49 Bactrim Allergy Unknown RASH Verified 04/14/18 12:03 codeine AdvReac Mild nausea Verified 07/15/21 14:50 Consultations 07/15/21 13:48 ED Decision to Admit Stat 07/20/21 17:16 Consult Veterinary Medicine Doctor Routine 07/24/21 17:55 Consult Nephrology Routine Ordered Studies 07/20/21 16:57 US point of care ultrasound Urgent 07/23/21 13:38 CT angio chest PE protocol Stat 07/24/21 17:56 US renal/blad retro comp Routine 07/31/21 12:27 US venous doppler LE BI Routine 08/03/21 21:18 CT head/brain wo con Urgent CT angio chest PE protocol CLINICAL HISTORY: Covid positive. Difficulty breathing. Evaluate for pulmonary embolus portable chest from 07/23/2021 COMPARISON STUDY: No previous studies for comparison. CT DOSE: 1013.61 mGy.cm TECHNIQUE: CT Angio of the chest was performed.followed by image post processing with coronal, and sagittal MIP reformats. Contrast Volume: Optiray 320, 121 ml FINDINGS: Vasculature: There is homogeneous perfusion of the pulmonary vasculature bilaterally. No intraluminal filling defects or evidence for pulmonary embolus is seen. Airway: The airway is clear. No endobronchial lesion is identified. Lungs: Extensive groundglass opacities are present throughout both lungs characteristic of a viral type pneumonitis and Covid 19 pneumonia. The lungs are otherwise clear of confluent alveolar opacities, air bronchograms or pulmonary nodules. Pleura: There is no evidence for pleural effusion. There is no evidence for pneumothorax. Mediastinum: There is no evidence for pathologic adenopathy. The heart size is within normal limits. There is coronary artery calcification and mitral annular calcification. The thoracic aorta is within normal limits. There is calcification of the aortic arch and origin of great vessels. There is no evidence for pericardial effusion. Upper abdomen:The adrenal glands are normal bilaterally. Osseous structures: There is no acute osseous pathology. Impression: 1. No CTA evidence for pulmonary embolus. 2. Extensive groundglass opacities are present throughout both lungs characteristic of a viral type pneumonitis and Covid 19 pneumonia. ACT 112: Negative or not required by law. Electronically signed by: Ashutosh Medeiros M.D. 07/23/2021 2:31 PM Dictated:07/23/21 1423 Transcribed: 07/23/21 1423 XR chest 1V portable CLINICAL HISTORY: Shortness of breath. COMPARISON STUDY: Chest radiograph October 12, 2019. FINDINGS: Lung volumes are normal. There is no pneumothorax or pleural effusion. Extensive bilateral airspace opacities are present. Dual-lead left subclavian pacemaker is in place. Cardiomegaly is unchanged. There's mitral annular calcification. IMPRESSION: Extensive bilateral airspace opacities which favor an infectious process such as viral pneumonia. Radiographic follow-up to ensure resolution is recommended. ACT 112: Negative or not required by law. Electronically signed by: Carroll Rodriguez M.D. 07/15/2021 1:29 PM Dictated:07/15/21 1325 Transcribed: 07/15/21 1326 XR chest 1V portable CLINICAL HISTORY: covid. Difficulty breathing COMPARISON STUDY: 07/15/2021 TECHNIQUE: 1 view of the chest FINDINGS: Single frontal view of the chest demonstrates the cardiomediastinal silhouette to be within normal limits. Compared to the previous examination, there is now marked interstitial and alveolar opacities bilaterally characteristic of worse jamee of Covid pneumonia. There is no evidence for pleural effusion. There is no evidence for vascular congestion. There is no acute osseous pathology. Cardiac pacer is again seen. IMPRESSION: Marked interval worsening of interstitial and alveolar opacities characteristic of worsening Covid pneumonia. ACT 112: Negative or not required by law. Electronically signed by: Ashutosh Medeiros M.D. 07/20/2021 12:13 PM Dictated:07/20/21 1212 Transcribed: 07/20/21 1212 Hospital Course (1) Respiratory failure with hypoxia: (2) COVID-19: Acute on chronic hypoxic respiratory failure ARDS secondary to COVID-19 Vaccinated against Covid, last dose November 2020 CXR:Extensive bilateral airspace opacities which favor an infectious process such as viral pneumonia. Radiographic follow-up to ensure resolution is recommended. Not a candidate for remdesivir Completed dexamethasone course She was intubated 07/20/2021nd extubated 07/23/2021; Then reintubated on 07/25 due to worsening respiratory distress and hemoptysis CTA showed extensive groundglass opacities are present throughout both lungs characteristic of a viral type pneumonitis and Covid 19 pneumonia. Had bronchoscopy with bronchoalveolar lavage which showed no evidence of alveolar hemorrhage Neuromuscular blockade discontinued Has been off sedation Continue to require vent support Bronchial wash 07/28/2021: Stenotrophomonas maltophilia Currently on ceftazidime daily Palliative care on board for goals of care Ongoing discussion with family Transition to comfort care note Date of : 08/05/21 Time of : 22:15 Contributing Factors (1) Respiratory failure with hypoxia: (2) COVID-19: Additional Data Confirmation of : no pulse, no respirations, no heart sounds and pupils fixed and dilated Atrial Fibrillation Rate controlled Monitor Mild hyponatremia Sodium level normalized ASPEN on CKD III Baseline 1.5-1.7; presenting creatinine 1.93 ATN versus acute glomerulonephritis, concern for vasculitis Had dialysis catheter placement on 07/27/21 Continue dialysis as per nephrology CAD Continue statin Aspirin held DM II SSI, glycemic pharmacy DVT Px: Heparin SQ--Held due to Hemoptysis CODE STATUS Palliative care on board for goals of care Disposition: Total Time Total Time Spent Total Time Spent (In Minutes): 35 minutes Discharge Plan Discharge Items Patient Disposition: Other Date/Time: 08/05/21 22:15
== END 2021-08-05 22:15 | disposition expired | DRG 207 ==
LOC: ED 11:53 → SUATTDRO 15:26 → EDINP 15:26 → 2S 07-16 19:57 → 2E 07-20 17:09 → 1E 08-05 12:04